=== PATIENT | female | born 1990 | race Caucasian/White ===

== ENCOUNTER 2017-04-24 18:07 | Inpatient (IN) | payer MEDICAID ==
[~2017-04-24] VITALS: Ht 154.9 cm; Wt 71.5 kg
[~2017-04-24 18:07] MED LIST: CIPR500T4 PO; CLAR500 PO; ECASA PO; LEVE500S TUBE; MIDO5 PO; PANT20 PO; PERC10TA27 PO; PROM25TA5 PO; SPIR50 PO; TOPI25 PO
[2017-04-24 18:35] VITALS: BP 137/78; PULSE 88; RESP 18; TEMP 98.2; O2SAT 99
[2017-04-24] MEDS ORDERED: VANCOMYCIN INJ 1,000 MG in SODIUM CHLOR 0.9% 250 ML INJ 250 ML IV ONE (19:30)
[2017-04-24] MEDS ORDERED: METO1TAB42 PO (19:34)
[2017-04-24] MEDS ORDERED: SPIR25 PO (19:34)
[2017-04-24] MEDS ORDERED: LORA-474 PO (19:34)
[2017-04-24] MEDS ORDERED: TOPI25TA7 PO (19:34)
[2017-04-24] MEDS ORDERED: ASPI81CH6 CHEW (19:34)
[2017-04-24] MEDS ORDERED: OXYC1TAB36 PO (19:34)
[2017-04-24] MEDS ORDERED: LISI10TA3 PO (19:34)
[2017-04-24] MEDS ORDERED: ENOX100P SQ (19:34)
[2017-04-24] MEDS ORDERED: PROT40TA PO (19:34)
[2017-04-24] MEDS ORDERED: FLUO-1 PO (19:34)
[2017-04-24] MEDS ORDERED: FERR15DR6 PO (19:34)
--- NOTE | 2017-04-24 20:06 | PD ---
HPI Chief Complaint: Chest Pain Time Seen by Provider: 19:11 Travel History International Travel<30 days: No Contact w/Intl Traveler<30days: No Traveled to known affect area: No History of Present Illness HPI pt is 26 yr old female with complicated medical past including recent sepsis and ICU she was given Zosyn and had bad reaction to the and developed and severe blistering to back , it has not healed in over 2 months , pt ereports seeing wound care MD at her PCP office but , she is using topical antibiotics without relief. pus coming from wound, Pt has hx of MRSA and pt has had cardiac issues and was ICU with trach in her past as well. pt main complaint is back pain ulceration skin oozing pus not getrting better with topical antibiotic and bids dressing change. PFSH Past Medical History Hx Anticoagulant Therapy: Yes (hx of) ADHD: No Blood Disorders: No Anxiety: Yes Depression: Yes Heart Rhythm Problems: No Cancer: No Cardiovascular Problems: Yes High Cholesterol: No Chemotherapy: No Chest Pain: Yes Congestive Heart Failure: No Cerebrovascular Accident: Yes Diabetes: No Diminished Hearing: No Endocrine: No Gastrointestinal Disorders: Yes (ASCITES SEPTEMBER 2013) GERD: Yes Genitourinary: Yes Immune Disorder: No Implanted Vascular Access Dvce: Yes (ARTIFICIAL HEART VALVES) Musculoskeletal: Yes Neurologic: Yes Psychiatric: Yes Reproductive: Yes (Ovarian cyst.) Respiratory: No Immunizations Current: Yes Migraines: Yes Seizures: Yes Thyroid Disease: No Ulcer: No ?: Not LMP: IUD IN PLACE : 1 Para: 1 Ovarian Cysts: Yes Past Surgical History Abdominal Surgery: Yes (SPLEENECTOMY, PERICENTESIS (2014)) Appendectomy: Yes Body Medical Devices: Prosthetic mitral/ tricuspid valves. also states wire in chest cavity Cardiac Surgery: Yes (Open heart surgery in 2010 - Tricuspid and mitral valve replacement) Section: Yes Cholecystectomy: Yes Ear Surgery: No Endocrine Surgery: No Eye Surgery: No Genitourinary Surgery: Yes Gynecologic Surgery: Yes ( at age 17) Hysterectomy: Yes (ENDOCARDITIS) Oral Surgery: Yes (WISDOM) Pacemaker: No Thoracic Surgery: No Valve Replacement: Yes (MITRAL TRICUSPID) Other Surgery: Yes (FACIAL SURGERY) Social History Alcohol Use: No Tobacco Use: No (NEVER) Substance Use: Yes ( MARIJUANA ) Allergies-Medications (Allergen,Severity, Reaction): Coded Allergies: Fish Containing Products (Unverified Allergy, Severe, THROAT SWOLLEN/HIVES , 10/08/16) codeine (Unverified Allergy, Severe, HIVES/VOMITING, 10/08/16) gabapentin (Unverified Allergy, Severe, Hives, 10/08/16) morphine (Unverified Allergy, Severe, Hives, 10/08/16) naproxen (Unverified Allergy, Severe, Hives, 10/08/16) piperacillin (Verified Allergy, Severe, Hives, 04/24/17) tazobactam (Verified Allergy, Severe, Hives, 04/24/17) Reported Meds & Prescriptions Reported Meds & Active Scripts Active Reported Protonix (Pantoprazole Sodium) 40 Mg Tab 40 Mg PO DAILY Aldactone (Spironolactone) 25 Mg Tab 25 Mg PO BIDPC Iron Supplement Childrens Liq Drops (Ferrous Sulfate) 15 Mg/Ml Drops 15 Mg PO BID Oxycodone-Acetaminophen 10-325 mg Tab 1 Tab PO Q4H PRN Aspirin Low Dose (Aspirin) 81 Mg Chew 81 Mg CHEW DAILY Lovenox Inj (Enoxaparin Sodium) 100 Mg/Ml Syr 100 Mg SQ DAILY Prozac (Fluoxetine HCl) 10 Mg Cap 20 Mg PO DAILY Ativan (Lorazepam) 1 Mg Tab 1 Mg PO BID PRN Lisinopril 10 Mg Tab 10 Mg PO DAILY Metoprolol Succinate ER 24 HR (Metoprolol Succinate) 25 Mg Tab 12.5 Mg PO BID Review of Systems Except as stated in HPI: all other systems reviewed are Neg Skin: Positive Lesions (ulcer oozing pus over 2 months) Physical Exam Narrative GENERAL: non toxic appaerance SKIN: Warm and dry. Pt has 7cm oval ulcer on right upper back oozing purulent material and macerated appearance HEAD: Atraumatic. Normocephalic. EYES: Pupils equal and round. No scleral icterus. No injection or drainage. ENT: No nasal bleeding or discharge. Mucous membranes pink and moist. NECK: Trachea midline. No JVD. CARDIOVASCULAR: Regular rate and rhythm. RESPIRATORY: No accessory muscle use. Clear to auscultation. Breath sounds equal bilaterally. GASTROINTESTINAL: Abdomen soft, non-tender, nondistended. Hepatic and splenic margins not palpable. MUSCULOSKELETAL: Extremities without clubbing, cyanosis, or edema. No obvious deformities. NEUROLOGICAL: Awake and alert. No obvious cranial nerve deficits. Motor grossly within normal limits. Five out of 5 muscle strength in the arms and legs. Normal speech. PSYCHIATRIC: Appropriate mood and affect; insight and judgment normal. Data Data Last Documented VS Orders Orders Vancomycin Inj (Vancomycin Inj) (04/24/17 19:30) Complete Blood Count With Diff (04/24/17 19:20) Blood Culture (04/24/17 19:20) Comprehensive Metabolic Panel (04/24/17 19:20) Wound Culture And Gram Stain (04/24/17 19:20) Ketorolac Inj (Toradol Inj) (04/24/17 20:15) Famotidine Inj (Pepcid Inj) (04/24/17 20:15) Ondansetron Inj (Zofran Inj) (04/24/17 20:15) Sodium Chlor 0.9% 1000 Ml Inj (Ns 1000 M (04/24/17 20:15) Lactic Acid (04/24/17 20:10) Chest, Pa & Lat (04/24/17 ) Admit Order (Ed Use Only) (04/24/17 22:13) Labs Laboratory Tests Test 04/24/17 20:05 04/24/17 20:50 White Blood Count 8.5 TH/MM3 Red Blood Count 3.84 MIL/MM3 Hemoglobin 12.1 GM/DL Hematocrit 35.7 % Mean Corpuscular Volume 93.0 FL Mean Corpuscular Hemoglobin 31.5 PG Mean Corpuscular Hemoglobin Concent 33.8 % Red Cell Distribution Width 13.7 % Platelet Count 464 TH/MM3 Mean Platelet Volume 7.2 FL Neutrophils (%) (Auto) 49.3 % Lymphocytes (%) (Auto) 37.7 % Monocytes (%) (Auto) 9.7 % Eosinophils (%) (Auto) 2.0 % Basophils (%) (Auto) 1.3 % Neutrophils # (Auto) 4.2 TH/MM3 Lymphocytes # (Auto) 3.2 TH/MM3 Monocytes # (Auto) 0.8 TH/MM3 Eosinophils # (Auto) 0.2 TH/MM3 Basophils # (Auto) 0.1 TH/MM3 CBC Comment DIFF FINAL Differential Comment Blood Urea Nitrogen 20 MG/DL Creatinine 0.82 MG/DL Random Glucose 83 MG/DL Total Protein 8.6 GM/DL Albumin 4.5 GM/DL Calcium Level 9.2 MG/DL Alkaline Phosphatase 144 U/L Aspartate Amino Transf (AST/SGOT) 26 U/L Alanine Aminotransferase (ALT/SGPT) 33 U/L Total Bilirubin 0.7 MG/DL Sodium Level 137 MEQ/L Potassium Level 3.5 MEQ/L Chloride Level 101 MEQ/L Carbon Dioxide Level 28.1 MEQ/L Anion Gap 8 MEQ/L Estimat Glomerular Filtration Rate 84 ML/MIN Lactic Acid Level 0.5 mmol/L MDM Medical Decision Making Medical Screen Exam Complete: Yes Emergency Medical Condition: Yes Differential Diagnosis ulcer of pressure , ulcer of MRSA , SJS reaction to zosyn not healing Narrative Course vanco cultures lactic acid NS toradol admit wound culture sent Diagnosis Primary Impression: Infected ulcer of skin Qualified Codes: L98.491 - Non-pressure chronic ulcer of skin of other sites limited to breakdown of skin; L08.9 - Local infection of the skin and subcutaneous tissue, unspecified Leonard Reveles MD Apr 24, 2017 20:06
[2017-04-24] MEDS ORDERED: ONDANSETRON HCL 4 MG/2 ML VIAL IV PUSH ONE (20:15)
[2017-04-24] MEDS ORDERED: SODIUM CHLOR 0.9% 1000 ML INJ 1,000 ML IV ONE (20:15)
[2017-04-24] MEDS ORDERED: FAMOTIDINE 20 MG/2 ML VIAL IV PUSH SCH (20:15)
[2017-04-24] MEDS ORDERED: KETOROLAC TROMETHAMINE 30 MG/ML (IVP) VIAL IV PUSH ONE (20:15)
[2017-04-24 20:35] LABS: AUTOMATED NEUTROPHIL # 4.2 TH/MM3 (1.8-7.7); BASOPHIL # 0.1 TH/MM3 (0-0.2); BASOPHIL % 1.3 % (0.0-2.0); EOSINOPHIL # 0.2 TH/MM3 (0-0.4); HEMATOCRIT 35.7 % (35.0-46.0); HEMOGLOBIN 12.1 GM/DL (11.6-15.3); LYMPH % 37.7 % (9.0-44.0); LYMPHOCYTE # 3.2 TH/MM3 (1.0-4.8); MEAN CORPUSCULAR HEMOGLOBIN 31.5 PG (27.0-34.0); MEAN CORPUSCULAR HGB CONC 33.8 % (32.0-36.0); MEAN PLATELET VOLUME 7.2 FL (7.0-11.0); MONO % 9.7 % (0.0-8.0); MONOCYTE # 0.8 TH/MM3 (0-0.9); NEUT % 49.3 % (16.0-70.0); PLATELET COUNT 464 TH/MM3 (150-450); RED BLOOD COUNT 3.84 MIL/MM3 (4.00-5.30); RED CELL DISTRIBUTION WIDTH 13.7 % (11.6-17.2); WHITE BLOOD COUNT 8.5 TH/MM3 (4.0-11.0)
[2017-04-24 20:47] LABS: ALBUMIN 4.5 GM/DL (3.4-5.0); AST (GOT) 26 U/L (15-37); BICARBONATE 28.1 MEQ/L (21.0-32.0); BLOOD UREA NITROGEN 20 MG/DL (7-18); CALCIUM 9.2 MG/DL (8.5-10.1); CHLORIDE 101 MEQ/L (98-107); CREATININE 0.82 MG/DL (0.50-1.00); GLOMERULAR FILTRATION RATE 84 ML/MIN (>89); GLUCOSE,RANDOM 83 MG/DL (74-106); SODIUM (NA) 137 MEQ/L (136-145)
[2017-04-24 20:48] LABS: ALT (GPT) 33 U/L (10-53)
[2017-04-24 20:50] LABS: ALKALINE PHOSPHATASE 144 U/L (45-117); TOTAL BILIRUBIN ADULT 0.7 MG/DL (0.2-1.0); TOTAL PROTEIN 8.6 GM/DL (6.4-8.2)
[2017-04-24 21:20] VITALS: BP 102/58; PULSE 76; RESP 16; TEMP 98.6; O2SAT 98
--- NOTE | 2017-04-24 22:11 | RADRPT ---
EXAM DATE/TIME: 04/24/2017 21:58 [facility] COMPARISON: No previous studies available for comparison. INDICATIONS : Chest pain for three days. MEDICAL HISTORY : Gastroesophageal reflux disease. Seizures. Hepatitis C. Cerebrovascular accident. Migraines. Tubercul osis. Ascites. Pelvic inflammatory disease. Ovarian cysts. Endocarditis. Substance abuse. SURGICAL HISTORY : Pacemaker. Splenectomy. Cholecystectomy. section. Tricuspid and mitral valve replacement. Paracentesis. Carpal tunnel surgery. ENCOUNTER: Initial ACUITY: 3 days PAIN SCORE: 7/10 LOCATION: Left chest FINDINGS: Median sternotomy wires are noted status post cardiac surgery. Pacer device is noted. The heart is en larged. No pulmonary edema is noted. Bibasilar streakiness is noted consistent with atelectasis and/o r infiltrates. CONCLUSION: Cardiomegaly. Bibasilar streakiness consistent with atelectasis and/or infiltrates. Ramakrishna Small MD on April 24, 2017 at 22:09 Board Certified Radiologist. This report was verified electronically.
--- NOTE | 2017-04-24 23:23 | HHI.HP ---
[facility] Seth De Jesus D.O. Admission Diagnosis Infected wound back Diagnoses: Chief Complaint: Infected wound on the back Travel History International Travel<30 Days: No Contact w/Intl Traveler <30 Da: No Traveled to Known Affected Are: No History of Present Illness 26-year-old female with a complex medical history including hepatitis C, mitral and aortic valve replacement from endocarditis, respiratory failure, history of trach, history of IV drug use presents to the hospital with concern for worsening an infected wound on her back. The patient reports she was at [facility] in [place] about a month and a half ago and was treated for bacteremia. She reports she had a reaction to Zosyn and ended up with a large wound on her right upper back. She was eventually discharged home to follow-up outpatient with wound care but she states she was not able to do so and has been taken care of the wound by herself at home. Over the past few days she noticed the wound has been draining foul purulence. She denies fevers or chills. She reports significant discomfort. She states she recently moved back to the [facility]. She has a doctor in [place]. She states the last time she used any drugs was in 2016 prior to valve replacement. Review of Systems Constitutional: DENIES: Fever, Chills Cardiovascular: COMPLAINS OF: Chest pain (sharp, chronic. reportedly Pacemaker needs to be repositioned. ) Integumentary: COMPLAINS OF: Rash (Large wound right upper back) Except as stated in HPI: all other systems reviewed are Neg Past Family Social History Past Medical History History of bacterial endocarditis status post prosthetic mitral/ tricuspid valves in 2000. 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 Apparently the patient had a redo Valve replacements in 2016 at [facility] History of respiratory failure requiring intubation and tracheostomy History of renal failure History of seizures History of spontaneous bacterial peritonitis History of intracranial abscess Past Surgical History Mitral/Tricuspid Valve Replacement (Bovine/Porcine) Cholecystectomy Splenectomy Liver biopsy Tracheostomy Multiple paracentesis Carpal tunnel surgery R wrist Pacemaker placement Reported Medications Reported Meds & Active Scripts Active Reported Protonix (Pantoprazole Sodium) 40 Mg Tab 40 Mg PO DAILY Aldactone (Spironolactone) 25 Mg Tab 25 Mg PO BIDPC Iron Supplement Childrens Liq Drops (Ferrous Sulfate) 15 Mg/Ml Drops 15 Mg PO BID Oxycodone-Acetaminophen 10-325 mg Tab 1 Tab PO Q4H PRN Aspirin Low Dose (Aspirin) 81 Mg Chew 81 Mg CHEW DAILY Lovenox Inj (Enoxaparin Sodium) 100 Mg/Ml Syr 100 Mg SQ DAILY Prozac (Fluoxetine HCl) 10 Mg Cap 10 Mg PO DAILY Ativan (Lorazepam) 1 Mg Tab 1 Mg PO BID PRN Topiramate 25 Mg Tab 25 Mg PO BID Lisinopril 10 Mg Tab 10 Mg PO DAILY Metoprolol Succinate ER 24 HR (Metoprolol Succinate) 25 Mg Tab 12.5 Mg PO BID Allergies: Coded Allergies: Fish Containing Products (Unverified Allergy, Severe, THROAT SWOLLEN/HIVES , 10/08/16) codeine (Unverified Allergy, Severe, HIVES/VOMITING, 10/08/16) gabapentin (Unverified Allergy, Severe, Hives, 10/08/16) morphine (Unverified Allergy, Severe, Hives, 10/08/16) naproxen (Unverified Allergy, Severe, Hives, 10/08/16) piperacillin (Verified Allergy, Severe, Hives, 04/24/17) tazobactam (Verified Allergy, Severe, Hives, 04/24/17) Family History Mother with history of ID 2. First 1 at 35 years old Brother with a history of ID 1 Social History Patient has a significant history of IV drug use. She states she quit using drugs in 2016. No tobacco or alcohol use. Patient was living in [place]. Recently moved back to [facility]. Physical Exam Vital Signs Vital Signs Date Time Temp Pulse Resp B/P (MAP) Pulse Ox O2 Delivery O2 Flow Rate FiO2 04/24/17 21:20 98.6 76 16 102/58 (73) 98 Room Air 04/24/17 18:37 88 18 99 Room Air 04/24/17 18:35 98.2 88 18 137/78 (97) 99 Physical Exam GENERAL: This is a well-nourished, well-developed patient, in no apparent distress. SKIN: There is a large wound over the right upper back. It is raised and beefy red, scant drainage. Appears to have pockets of serous sanguinous areas. There are surrounding cellulitis. Some irritation from the tape as well. HEAD: Atraumatic. Normocephalic. No temporal or scalp tenderness. EYES: Pupils equal round and reactive. Extraocular motions intact. No scleral icterus. No injection or drainage. ENT: Nose without bleeding, purulent drainage or septal hematoma. Throat without erythema, tonsillar hypertrophy or exudate. Uvula midline. Airway patent. NECK: Trachea midline. No JVD or lymphadenopathy. Supple, nontender, no meningeal signs. CARDIOVASCULAR: Normal rate. Regular rhythm. 2 out of 6 MALLORY best heard at the left upper sternal border RESPIRATORY: Clear to auscultation. Breath sounds equal bilaterally. No wheezes , rales, or rhonchi. GASTROINTESTINAL: Abdomen soft, non-tender, nondistended. No hepato-splenomegaly , or palpable masses. No guarding. MUSCULOSKELETAL: Extremities without clubbing, cyanosis, or edema. No joint tenderness, effusion, or edema noted. No calf tenderness. Negative Homans sign bilaterally. NEUROLOGICAL: Awake and alert. Cranial nerves II through XII intact. Motor and sensory grossly within normal limits. Five out of 5 muscle strength in all muscle groups. Normal speech. Laboratory Laboratory Tests Test 04/24/17 20:05 04/24/17 20:50 White Blood Count 8.5 Red Blood Count 3.84 Hemoglobin 12.1 Hematocrit 35.7 Mean Corpuscular Volume 93.0 Mean Corpuscular Hemoglobin 31.5 Mean Corpuscular Hemoglobin Concent 33.8 Red Cell Distribution Width 13.7 Platelet Count 464 Mean Platelet Volume 7.2 Neutrophils (%) (Auto) 49.3 Lymphocytes (%) (Auto) 37.7 Monocytes (%) (Auto) 9.7 Eosinophils (%) (Auto) 2.0 Basophils (%) (Auto) 1.3 Neutrophils # (Auto) 4.2 Lymphocytes # (Auto) 3.2 Monocytes # (Auto) 0.8 Eosinophils # (Auto) 0.2 Basophils # (Auto) 0.1 CBC Comment DIFF FINAL Differential Comment Blood Urea Nitrogen 20 Creatinine 0.82 Random Glucose 83 Total Protein 8.6 Albumin 4.5 Calcium Level 9.2 Alkaline Phosphatase 144 Aspartate Amino Transf (AST/SGOT) 26 Alanine Aminotransferase (ALT/SGPT) 33 Total Bilirubin 0.7 Sodium Level 137 Potassium Level 3.5 Chloride Level 101 Carbon Dioxide Level 28.1 Anion Gap 8 Estimat Glomerular Filtration Rate 84 Lactic Acid Level 0.5 Date/Time Source Procedure Growth Status 04/24/17 20:05 Blood Peripheral Aerobic Blood Culture Pending Received 04/24/17 20:05 Blood Peripheral Anaerobic Blood Culture Pending Received 04/24/17 19:36 Wound Back Gram Stain Pending Received 04/24/17 19:36 Wound Back Wound Culture Pending Received Result Diagram: 04/24/[id number]/24/172004 Imaging Last Impressions Chest X-Ray 04/24/17 0000 Signed Impressions: Service Date/Time: April 21:58 - CONCLUSION: Cardiomegaly. Bibasilar streakiness consistent with atelectasis and/or infiltrates. MD Nancie Garcias VTE Risk Assessment Nancie VTE Risk Assessment: Mod/High Risk (score >= 2) Caprini Risk Assessment Model Point Value = 1 Point Value = 2 Point Value = 3 Point Value = 5 Age 41-60 Minor surgery BMI > 25 kg/m2 Swollen legs Varicose veins or History of unexplained or recurrent spontaneous Oral contraceptives or hormone replacement Sepsis (< 1 month) Serious lung disease, including pneumonia (< 1 month) Abnormal pulmonary function Acute myocardial infarction Congestive heart failure (< 1 month) History of inflammatory bowel disease Medical patient at bed rest Age 61-74 Arthroscopic surgery Major open surgery (> 45 min) Laparoscopic surgery (> 45 min) Malignancy Confined to bed (> 72 hours) Immobilizing plaster cast Central venous access Age >= 75 History of VTE Family history of VTE Factor V Leiden Prothrombin [id number] Lupus anticoagulant Anticardiolipin antibodies Elevated serum homocysteine Heparin-induced thrombocytopenia Other congenital or acquired thrombophilia Stroke (< 1 month) Elective arthroplasty Hip, pelvis, or leg fracture Acute spinal cord injury (< 1 month) Prophylaxis Regimen Total Risk Factor Score Risk Level Prophylaxis Regimen 0-1 Low Early ambulation 2 Moderate Order ONE of the following: *Sequential Compression Device (SCD) *Heparin 5000 units SQ BID 3-4 Higher Order ONE of the following medications: *Heparin 5000 units SQ TID *Enoxaparin/Lovenox 40 mg SQ daily (WT < 150 kg, CrCl > 30 mL/min) *Enoxaparin/Lovenox 30 mg SQ daily (WT < 150 kg, CrCl > 10-29 mL/min) *Enoxaparin/Lovenox 30 mg SQ BID (WT < 150 kg, CrCl > 30 mL/min) AND/OR *Sequential Compression Device (SCD) 5 or more Highest Order ONE of the following medications: *Heparin 5000 units SQ TID (Preferred with Epidurals) *Enoxaparin/Lovenox 40 mg SQ daily (WT < 150 kg, CrCl > 30 mL/min) *Enoxaparin/Lovenox 30 mg SQ daily (WT < 150 kg, CrCl > 10-29 mL/min) *Enoxaparin/Lovenox 30 mg SQ BID (WT < 150 kg, CrCl > 30 mL/min) AND *Sequential Compression Device (SCD) Assessment and Plan Problem List: (1) Infected ulcer of skin ICD Code: L98.499 - Non-pressure chronic ulcer of skin of other sites with unspecified severity; L08.9 - Local infection of the skin and subcutaneous tissue, unspecified Status: Acute Plan: Large wound. Reportedly started as reaction to Zosyn. Not healing. Patient has been caring for it herself. Did not follow up outpatient with wound care - Wound culture pending -Continue empiric antibiotics with vancomycin - Pain control - Consult infectious disease for assistance. Patient is complex. She has history of endocarditis with valve replacements. She was admitted in [place] and treated for bacteremia about a month and a half ago. - Wound care consult (2) H/O endocarditis ICD Code: Z86.79 - Personal history of other diseases of the circulatory system Status: Chronic Plan: Recently treated at [facility] in [place] for bacteremia. Repeat blood cultures ID consulted as above (3) Systolic CHF, chronic ICD Code: I50.22 - Chronic systolic (congestive) heart failure Status: Chronic Plan: Continue metoprolol. Hold lisinopril and Aldactone due to low blood pressure. Continue to monitor (4) History of heart valve replacement ICD Code: Z95.2 - Presence of prosthetic heart valve Plan: On Lovenox. States Coumadin did not work for her. (5) Anxiety ICD Code: F41.9 - Anxiety disorder, unspecified Status: Acute Plan: Continue Prozac Discussed Condition With Dr. Reveles Physician Certification 2 Midnight Certification Type: Admission for Inpatient Services Order for Inpatient Services The services are ordered in accordance with Medicare regulations or non- Medicare payer requirements, as applicable. In the case of services not specified as inpatient-only, they are appropriately provided as inpatient services in accordance with the 2-midnight benchmark. Estimated LOS (days): 5 days is the estimated time the patient will need to remain in the hospital, assuming treatment plan goals are met and no additional complications. Post-Hospital Plan: Home Problem Qualifiers (1) Infected ulcer of skin: Qualified Codes: L98.491 - Non-pressure chronic ulcer of skin of other sites limited to breakdown of skin; L08.9 - Local infection of the skin and subcutaneous tissue, unspecified Jose Amador MD Apr 24, 2017 23:23
[2017-04-24] MEDS ORDERED: BISACODYL 10 MG SUPP RECTAL PRN (23:30)
[2017-04-24] MEDS ORDERED: NALOXONE HCL 0.4 MG/ML AMP IV PUSH PRN (23:30)
[2017-04-24] MEDS ORDERED: SENNOSIDES 8.6 MG TAB PO PRN (23:30)
[2017-04-24] MEDS ORDERED: LACTULOSE SYRUP 20 GM/30 ML CUP PO PRN (23:30)
[2017-04-24] MEDS ORDERED: SODIUM CHLORIDE 0.9% FLUSH 10 ML FLUSH IV FLUSH PRN (23:30)
[2017-04-24] MEDS ORDERED: MAGNESIUM HYDROXIDE SUSP 30 ML CUP PO PRN (23:30)
[2017-04-25] MEDS ORDERED: Vancomycin Consult Pharmacy 1 EA OTHER SCH (01:00)
[2017-04-25 02:00] VITALS: BP 117/64; PULSE 81; RESP 18; TEMP 98; O2SAT 94
[2017-04-25] MEDS: oxyCODONE/ACETAMINOPHEN 5 MG/325 MG TAB PO PRN ×2 (02:33→09:27)
[2017-04-25] MEDS: ONDANSETRON HCL 4 MG/2 ML VIAL IVP PRN ×2 (04:50→21:40)
[2017-04-25 04:52] VITALS: BP 93/54; PULSE 76; RESP 18; TEMP 98.1; O2SAT 97
[2017-04-25 08:00] VITALS: BP 110/63; PULSE 85; RESP 19; TEMP 98.5; O2SAT 99
[2017-04-25 08:47] LABS: BICARBONATE 25.3 MEQ/L (21.0-32.0); CALCIUM 8.6 MG/DL (8.5-10.1); CREATININE 0.77 MG/DL (0.50-1.00)
[2017-04-25 08:49] LABS: BASOPHIL # 0.1 TH/MM3 (0-0.2); BASOPHIL % 1.2 % (0.0-2.0); EOSINOPHIL # 0.2 TH/MM3 (0-0.4); EOSINOPHIL % 2.9 % (0.0-4.0); HEMATOCRIT 32.7 % (35.0-46.0); HEMOGLOBIN 11.1 GM/DL (11.6-15.3); LYMPH % 32.8 % (9.0-44.0); LYMPHOCYTE # 2.5 TH/MM3 (1.0-4.8); MEAN CELL VOLUME 94.2 FL (80.0-100.0); MEAN CORPUSCULAR HEMOGLOBIN 32.1 PG (27.0-34.0); MEAN PLATELET VOLUME 7.3 FL (7.0-11.0); MONOCYTE # 0.8 TH/MM3 (0-0.9); NEUT % 52.1 % (16.0-70.0); PLATELET COUNT 395 TH/MM3 (150-450); RED BLOOD COUNT 3.47 MIL/MM3 (4.00-5.30); RED CELL DISTRIBUTION WIDTH 13.9 % (11.6-17.2); WHITE BLOOD COUNT 7.6 TH/MM3 (4.0-11.0)
[2017-04-25] MEDS: PANTOPRAZOLE SOD 40 MG DELAYED RELEASE TAB PO SCH (09:17)
[2017-04-25] MEDS: FLUoxetine HCL 10 MG CAP PO SCH (09:18)
[2017-04-25] MEDS: TOPIRAMATE 25 MG TAB PO SCH ×2 (09:18→21:36)
[2017-04-25] MEDS: METOPROLOL SUCCINATE 25 MG EXTENDED RELEASE TAB PO SCH ×2 (09:20→21:37)
[2017-04-25] MEDS: ENOXAPARIN SODIUM 100 MG/ML SYRINGE SQ SCH (09:27)
[2017-04-25] MEDS: VANCOMYCIN INJ 1,000 MG in SODIUM CHLOR 0.9% 250 ML INJ 250 ML IV SCH ×2 (09:28→22:32)
--- NOTE | 2017-04-25 10:47 | PD.WCN.NOT ---
Wound Consult Description: Received consult from Doctor Perry for wound management of R upper back Communicated with: RN Art newark and Doctor Vianey Recommendation: 1.Please cleanse wound to R upper back with wound cleanser and pat dry. 2. Apply skin prep to periwound and intact skin before applying dressings 3.Apply Optifoam AG gentle border secured with bordered gauze.. 4. Change dressing every 2 days or PRN if saturated or dislodged. 5. Please have patient follow up with out patient wound care center. Additional Information: Patient seen on for evaluation of R upper back wound. Patient was being treated for bacteremia at [facility] in [place] approximately 1 month ago. Had an allergic reaction to Zosyn and developed large blistering wound on back. Patient has been treating wound herself at home per instructions from [facility]. Patient has noticed foul smelling odor and wound has become more painful. She has not followed up with an out patient wound care center. Patient was given medication for pain. Prior to dressing removal and wound assessment. Roberta was sitting up in bed for wound assessment. ABD dressing, and oil emulsion gauze were removed from R upper back to reveal open wound to R upper back. Wound bed presents with 100% hypergranulated tissue. Periwound is noted with erythema that extends ~2cm out from wound bed circumferentially, slight induration is noted at 7to 9 o'clock. Wound margins are uneven and irregular.Cleansed wound with normal saline and patted dry. Applied oil emulsion gauze just over open wound and covered with ABD pad. Secured dressing with Medfix tape. RN to dress wound as recommended above when supplies obtained.Please vocera wound care nurse wound deterioration. So[facility]ila Alarcon [facility] Apr 25, 2017 10:47
--- NOTE | 2017-04-25 11:49 | HHI.PR ---
Subjective Remarks The patient says she has been struggling with the wound in her back since mid January. She does endorse significant pain in that area. She also mentions for the past 3 or 4 days she has been having left-sided chest pain with radiation to the right. It seems to get worse with movement. She says she has a history of significant heart disease in her family. She also endorses chronic migraines. Discussed with nursing. Objective Vitals Vital Signs Date Time Temp Pulse Resp B/P (MAP) Pulse Ox O2 Delivery O2 Flow Rate FiO2 04/25/17 08:00 98.5 85 19 110/63 (79) 99 04/25/17 04:52 98.1 76 18 93/54 (67) 97 04/25/17 02:00 98.0 81 18 117/64 (81) 94 04/24/17 21:20 98.6 76 16 102/58 (73) 98 Room Air 04/24/17 18:37 88 18 99 Room Air 04/24/17 18:35 98.2 88 18 137/78 (97) 99 I/O 04/24/17 04/24/17 04/24/17 04/25/17 04/25/17 04/25/17 07:00 15:00 23:00 07:00 15:00 23:00 Intake Total 1250 ml Balance 1250 ml Intake IV Total 1250 ml # Voids 2 Result Diagram: 04/25/17 0753 04/25/17 0753 Imaging Last Impressions Chest X-Ray 04/24/17 0000 Signed Impressions: Service Date/Time: April 21:58 - CONCLUSION: Cardiomegaly. Bibasilar streakiness consistent with atelectasis and/or infiltrates. Ramakrishna Small MD Objective Remarks GENERAL: This is a well-nourished, well-developed patient, in no apparent distress. SKIN: There is a large wound over the right upper back. Currently the wound is dressed. HEAD: Atraumatic. Normocephalic. No temporal or scalp tenderness. EYES: Pupils equal round and reactive. Extraocular motions intact. No scleral icterus. No injection or drainage. ENT: Nose without bleeding, purulent drainage or septal hematoma. Throat without erythema, tonsillar hypertrophy or exudate. Uvula midline. Airway patent. NECK: Trachea midline. No JVD or lymphadenopathy. Supple, nontender, no meningeal signs. CARDIOVASCULAR: Normal rate. Regular rhythm. Mechanical click noted. RESPIRATORY: Clear to auscultation. Breath sounds equal bilaterally. No wheezes , rales, or rhonchi. GASTROINTESTINAL: Abdomen soft, non-tender, nondistended. No hepato-splenomegaly , or palpable masses. No guarding. MUSCULOSKELETAL: Extremities without clubbing, cyanosis, or edema. No joint tenderness, effusion, or edema noted. NEUROLOGICAL: Awake and alert. Cranial nerves II through XII intact. Motor and sensory grossly within normal limits. Five out of 5 muscle strength in all muscle groups. Normal speech. PSYCH: Mood and affect appropriate. Medications and IVs Current Medications Medications (Trade) Dose Ordered Sig/Lele Route Start Time Stop Time Status Last Admin (Pepcid Inj) 20 mg ONCE IV PUSH 04/24/17 20:15 04/24/17 21:06 (NS Flush) 2 ml UNSCH PRN IV FLUSH 04/24/17 23:30 (NS Flush) 2 ml BID IV FLUSH 04/25/17 09:00 (Tylenol) 650 mg Q4H PRN PO 04/24/17 23:30 (Zofran Inj) 4 mg Q6H PRN IVP 04/24/17 23:30 04/25/17 04:50 (Narcan Inj) 0.4 mg UNSCH PRN IV PUSH 04/24/17 23:30 (Milk Of Magnesia Liq) 30 ml Q12H PRN PO 04/24/17 23:30 (Senokot) 17.2 mg Q12H PRN PO 04/24/17 23:30 (Dulcolax Supp) 10 mg DAILY PRN RECTAL 04/24/17 23:30 (Lactulose Liq) 30 ml DAILY PRN PO 04/24/17 23:30 (Lovenox Inj) 100 mg DAILY SQ 04/25/17 09:00 04/25/17 09:27 (Ferrous Sulfate Liq) 15 mg BID PO 04/25/17 09:00 (PROzac) 10 mg DAILY PO 04/25/17 09:00 04/25/17 09:18 (Toprol Xl) 12.5 mg BID PO 04/25/17 09:00 04/25/17 09:20 (Protonix) 40 mg DAILY PO 04/25/17 09:00 04/25/17 09:17 (Topamax) 25 mg BID PO 04/25/17 09:00 04/25/17 09:18 (Percocet 5-325 Mg) 1 tab Q6H PRN PO 04/25/17 01:00 04/25/17 09:27 Vancomycin HCl 1000 mg/Sodium Chloride 250 ml @ 250 mls/hr Q12H IV 04/25/17 09:00 04/25/17 09:28 Pharmacy Profile Note 0 ml @ 0 mls/hr UNSCH OTHER 04/25/17 01:00 A/P Problem List: (1) Infected ulcer of skin ICD Code: L98.499 - Non-pressure chronic ulcer of skin of other sites with unspecified severity; L08.9 - Local infection of the skin and subcutaneous tissue, unspecified Status: Acute (2) H/O endocarditis ICD Code: Z86.79 - Personal history of other diseases of the circulatory system Status: Chronic (3) Systolic CHF, chronic ICD Code: I50.22 - Chronic systolic (congestive) heart failure Status: Chronic (4) History of heart valve replacement ICD Code: Z95.2 - Presence of prosthetic heart valve (5) Anxiety ICD Code: F41.9 - Anxiety disorder, unspecified Status: Acute Assessment and Plan Infected ulcer of skin Large wound. Reportedly started as reaction to Zosyn. Not healing. Patient has been caring for it herself. Did not follow up outpatient with wound care. Wound nurse recommendations appreciated. - wound care as recommended by wound nurse. - Wound culture pending - Continue empiric antibiotics with vancomycin. - Pain control with a bowel regimen. - Consult infectious disease for assistance. Patient is complex. She has history of endocarditis with valve replacements. She was admitted in [place] and treated for bacteremia about a month and a half ago. Chest pain Left-sided. Family history significant for CAD. EKG without acute ischemic changes. - trend trops and EKGs. - telemetry. - CXR pa/lateral to rule out PNA. H/O endocarditis Recently treated at [facility] in [place] for bacteremia. - Repeat blood cultures. - ID consulted as above. Systolic CHF, chronic No evidence of fluid overload at this time. Most recent echo in out system with normal EF. - Continue metoprolol. - Hold lisinopril and Aldactone due to low blood pressure. Resume when appropriate. History of heart valve replacement On Lovenox. States Coumadin did not work for her. - continue Lovenox. Migraines The patient stated that she has had migraines since she developed brain hematomas this past summer. - Pain control as needed. PPx: Lovenox Problem Qualifiers (1) Infected ulcer of skin: Qualified Codes: L98.491 - Non-pressure chronic ulcer of skin of other sites limited to breakdown of skin; L08.9 - Local infection of the skin and subcutaneous tissue, unspecified Allan Winters DO Apr 25, 2017 11:49
[2017-04-25 12:00] VITALS: BP 101/56; PULSE 77; RESP 19; TEMP 98.2; O2SAT 96
[2017-04-25] MEDS ORDERED: LORazepam 1 MG TAB PO PRN (12:00)
--- NOTE | 2017-04-25 13:03 | RADRPT ---
EXAM DATE/TIME: 04/25/2017 12:46 [facility] COMPARISON: CHEST PA & LAT, April 24, 2017, 21:58. INDICATIONS : Chest pain, short of breath. MEDICAL HISTORY : Gastroesophageal reflux disease. Seizures. Hepatitis C. Cerebrovascular accident. Migraines. Tubercul osis. Ascites. Pelvic inflammatory diseaseOvarian cysts. Endocarditis. Substance abuse. SURGICAL HISTORY : Pacemaker. Splenectomy. Cholecystectomy. section. Tricuspid andmitral valve replacement. Par acentesis. Carpal tunnel surgery ENCOUNTER: Subsequent ACUITY: 4 - 6 days PAIN SCORE: 5/10 LOCATION: Bilateral chest FINDINGS: PA and lateral views of the chest demonstrate the lungs to be symmetrically aerated without evidence of mass, infiltrate or effusion. Pacemaker is evident. Sternal wires from previous bypass are noted . The cardiomediastinal contours are unremarkable. Osseous structures are intact. CONCLUSION: Compensated cardiomegaly without failure. Kj Lozano MD FACR on April 25, 2017 at 12:59 Board Certified Radiologist. This report was verified electronically.
[2017-04-25 16:00] VITALS: BP 93/51; PULSE 77; RESP 19; TEMP 98.6; O2SAT 97
[2017-04-25] MEDS: HYDROmorphone HCL PF 2 MG/ML VIAL IV PUSH PRN ×2 (17:14→21:41)
--- NOTE | 2017-04-25 18:05 | EKG ---
Date Performed: 04/24/2017 Time Performed: 21:17:20 PTAGE: 26 years EKG: ECTOPIC ATRIAL RHYTHM POSSIBLE RIGHT VENTRICULAR CONDUCTION DELAY MINIMAL ST DEPRESSION ABN ORMAL RHYTHM ECG Compared to PREVIOUS TRACING , the patient is now in an ectopic atrial rhythm. PREVIOUS TRACIN11/24 23.54.53 DOCTOR: Neida Rader Interpretating Date/Time 04/25/2017 18:02:11
[2017-04-25 20:00] VITALS: BP 110/63; PULSE 86; RESP 16; TEMP 99.3; O2SAT 95
[2017-04-25] MEDS: SODIUM CHLORIDE 0.9% FLUSH 10 ML FLUSH IV FLUSH SCH (21:00)
[2017-04-25] MEDS: oxyCODONE/ACETAMINOPHEN 10 MG/325 MG TAB PO PRN (21:39)
[2017-04-25] MEDS ORDERED: FERROUS SULFATE 300 MG /5ML UDC PO SCH (23:45)
[2017-04-25] MEDS: FERROUS SULFATE 15 MG/ML ELEMENTAL IRON 50 ML BTL PO SCH (23:58)
[2017-04-26] VITALS (11 sets, daily range): BP systolic 94–109; BP diastolic 49–82; PULSE 67–93; RESP 16–20; TEMP 98–99; O2SAT 85–98
[2017-04-26] MEDS: oxyCODONE/ACETAMINOPHEN 10 MG/325 MG TAB PO PRN ×7 (00:39→22:05)
[2017-04-26] MEDS: HYDROmorphone HCL PF 2 MG/ML VIAL IV PUSH PRN ×6 (02:28→23:14)
[2017-04-26 03:11] LABS: AUTOMATED NEUTROPHIL # 5.3 TH/MM3 (1.8-7.7); BASOPHIL # 0.1 TH/MM3 (0-0.2); BASOPHIL % 0.8 % (0.0-2.0); EOSINOPHIL # 0.3 TH/MM3 (0-0.4); EOSINOPHIL % 3.5 % (0.0-4.0); HEMATOCRIT 32.9 % (35.0-46.0); HEMOGLOBIN 10.9 GM/DL (11.6-15.3); LYMPH % 21.1 % (9.0-44.0); LYMPHOCYTE # 1.6 TH/MM3 (1.0-4.8); MEAN CORPUSCULAR HEMOGLOBIN 31.6 PG (27.0-34.0); MEAN CORPUSCULAR HGB CONC 33.3 % (32.0-36.0); MEAN PLATELET VOLUME 7.1 FL (7.0-11.0); MONO % 4.6 % (0.0-8.0); MONOCYTE # 0.3 TH/MM3 (0-0.9); PLATELET COUNT 352 TH/MM3 (150-450); RED BLOOD COUNT 3.46 MIL/MM3 (4.00-5.30); RED CELL DISTRIBUTION WIDTH 14.3 % (11.6-17.2); WHITE BLOOD COUNT 7.6 TH/MM3 (4.0-11.0)
[2017-04-26] MEDS: METOPROLOL SUCCINATE 25 MG EXTENDED RELEASE TAB PO SCH ×2 (08:13→21:00)
[2017-04-26] MEDS: ASPIRIN 81 MG CHEW TAB CHEW SCH ×2 (08:15→09:02)
[2017-04-26] MEDS: FLUoxetine HCL 10 MG CAP PO SCH (08:15)
[2017-04-26] MEDS: ENOXAPARIN SODIUM 100 MG/ML SYRINGE SQ SCH (08:15)
[2017-04-26] MEDS: PANTOPRAZOLE SOD 40 MG DELAYED RELEASE TAB PO SCH (08:15)
[2017-04-26] MEDS: TOPIRAMATE 25 MG TAB PO SCH ×2 (08:15→21:28)
[2017-04-26] MEDS: SODIUM CHLORIDE 0.9% FLUSH 10 ML FLUSH IV FLUSH SCH ×2 (08:16→21:29)
[2017-04-26] MEDS: FERROUS SULFATE 15 MG/ML ELEMENTAL IRON 50 ML BTL PO SCH ×2 (08:16→21:30)
[2017-04-26] MEDS ORDERED: PHARMACY ORDERED LAB ONE (08:45)
--- NOTE | 2017-04-26 08:57 | EKG ---
Date Performed: 04/26/2017 Time Performed: 05:09:32 PTAGE: 26 years EKG: Possible ectopic atrial rhythm. rSr'(V1) - probable normal variant Septal and lateral ST-T changes are nonspecific Borderline ECG NO PREVIOUS TRACING DOCTOR: Keanu Lauren Interpretating Date/Time 04/26/2017 08:55:52
[2017-04-26] MEDS: ONDANSETRON HCL 4 MG/2 ML VIAL IVP PRN ×2 (09:04→21:29)
--- NOTE | 2017-04-26 09:52 | EKG ---
Date Performed: 04/25/2017 Time Performed: 14:04:27 PTAGE: 26 years EKG: ECTOPIC ATRIAL RHYTHM POSSIBLE RIGHT VENTRICULAR CONDUCTION DELAY ABNORMAL RHYTHM ECG PREVIOUS TRACING : 04/24/2017 21.17 DOCTOR: Keanu Lauren Interpretating Date/Time 04/26/2017 09:50:56
[2017-04-26] MEDS: VANCOMYCIN INJ 1,000 MG in SODIUM CHLOR 0.9% 250 ML INJ 250 ML IV SCH ×2 (10:11→21:40)
[2017-04-26] MEDS ORDERED: NITROGLYCERIN 0.4 MG SL 25 TABS/BTL SL ONE (10:59)
[2017-04-26] MEDS ORDERED: IOHEXOL 350 MG/ML 10 ML VIAL (for RAD DIAG) IVCONTRAST ONE (11:32)
--- NOTE | 2017-04-26 11:46 | RADRPT ---
EXAM DATE/TIME: 04/26/2017 11:29 [facility] COMPARISON: CT PULMONARY ANGIOGRAM, October 31, 2015, 20:02. INDICATIONS : Dyspnea, chest pain IV CONTRAST: 74 cc Omnipaque 350 (iohexol) IV RADIATION DOSE: 19.39 CTDIvol (mGy) MEDICAL HISTORY : Cardiovascular disease. Seizures. Hepatitis C. SURGICAL HISTORY : Hysterectomy. Cholecystectomy.Appendectomy. ENCOUNTER: Initial ACUITY: 1 day PAIN SCALE: 7/10 LOCATION: chest TECHNIQUE: Volumetric scanning of the chest was performed using a pulmonary embolism protocol MIP images were re constructed. Using automated exposure control and adjustment of the mA and/or kV according to patien t size, radiation dose was kept as low as reasonably achievable to obtain optimal diagnostic quality images. DICOM format image data is available electronically for review and comparison. Follow-up recommendations for detected pulmonary nodules are based at a minimum on nodule size and pa tient risk factors according to Fleischner Society Guidelines. FINDINGS: PULMONARY ARTERIES: No filling defects are seen in the pulmonary arteries through the segmental level. LUNGS: Minimal consolidation both lung bases without significant infiltrate. Very similar to October 2015 There is no pneumothorax . No concerning pulmonary nodule is visualized. PLEURAE: There is no pleural thickening or pleural effusion. MEDIASTINUM: There is good visualization of the great vessels of the middle mediastinum. No evidence of mediastin al or hilar adenopathy/mass. MUSCULOSKELETAL: Within normal limits for patient age. MISCELLANEOUS: The visualized upper abdominal organs demonstrate no acute abnormality. CONCLUSION: Normal examination with no evidence of pulmonary embolism. Minimal atelectasis scarring both lung bas es. Keanu Monahan MD on April 26, 2017 at 11:44 Board Certified Radiologist. This report was verified electronically.
--- NOTE | 2017-04-26 11:47 | RADRPT ---
EXAM DATE/TIME: 04/26/2017 11:37 [facility] COMPARISON: CHEST SINGLE AP, December 10, 2015, 2:00. INDICATIONS : Patient complains of chest pain. HALICAT. MEDICAL HISTORY : None. SURGICAL HISTORY : None. ENCOUNTER: Initial ACUITY: 1 day PAIN SCORE: 8/10 LOCATION: chest FINDINGS: A single view of the chest demonstrates the lungs to be symmetrically aerated without evidence of mas s, infiltrate or effusion. Left subclavian pacer device. Median sternotomy wires. Prostatic aortic va lve. The cardiomediastinal contours are unremarkable. Osseous structures are intact. CONCLUSION: Lungs grossly clear. Previous surgeries as above. Keanu Monahan MD on April 26, 2017 at 11:45 Board Certified Radiologist. This report was verified electronically.
--- NOTE | 2017-04-26 12:36 | HHI.PR ---
Subjective Remarks Nursing reported the patient was complaining of chest pain. The patient was complaining of 8 out of 10 chest pain that she described as sharp and stabbing. She also described a severe headache. Her oxygen saturation was in the 60s. She was transitioned to a nonrebreather with improvement in saturation. A Halicat was called. ABG revealed an increased CO2 level. The patient received nitroglycerin and IV Dilaudid for the chest pain. She went to radiology for a stat CTA. She was able to be transitioned back to nasal cannula eventually. Objective Vitals Vital Signs Date Time Temp Pulse Resp B/P (MAP) Pulse Ox O2 Delivery O2 Flow Rate FiO2 04/26/17 10:37 16 04/26/17 10:15 16 04/26/17 08:00 98.0 73 16 100/49 (66) 96 04/26/17 06:12 2.00 04/26/17 06:08 95 04/26/17 06:05 85 04/26/17 04:15 98 04/26/17 04:15 Nasal Cannula 2.00 04/26/17 04:00 98.9 85 17 102/82 (89) 88 04/26/17 00:00 99.0 80 17 104/59 (74) 93 04/25/17 20:00 99.3 86 16 110/63 (79) 95 04/25/17 16:00 98.6 77 19 93/51 (65) 97 I/O 04/25/17 04/25/17 04/25/17 04/26/17 04/26/17 04/26/17 07:00 15:00 23:00 07:00 15:00 23:00 Intake Total 1250 ml 720 ml Output Total 5 ml Balance 1250 ml 715 ml Intake Oral 720 ml IV Total 1250 ml Output Urine Total 5 ml # Voids 2 10 Result Diagram: 04/26/17 0232 04/25/17 0753 Imaging Last Impressions Head CT 04/26/17 0000 Signed Impressions: Service Date/Time: Wednesday, April 26, 2017 13:09 - CONCLUSION: 2 old areas of encephalomalacia on the right side. No evidence of acute hemorrhage, edema, mass, or mass effect. Keanu Monahan MD Chest X-Ray 04/26/17 0000 Signed Impressions: Service Date/Time: Wednesday, April 26, 2017 11:37 - CONCLUSION: Lungs grossly clear. Previous surgeries as above. Keanu Monahan MD CT Angiography 04/26/17 0000 Signed Impressions: Service Date/Time: Wednesday, April 26, 2017 11:29 - CONCLUSION: Normal examination with no evidence of pulmonary embolism. Minimal atelectasis scarring both lung bases. Keanu Monahan MD Objective Remarks GENERAL: Complaining of severe chest pain. SKIN: There is a healing wound over the right upper back. Currently the wound is dressed. HEAD: Atraumatic. Normocephalic. No temporal or scalp tenderness. EYES: Pupils equal round and reactive. Extraocular motions intact. No scleral icterus. No injection or drainage. ENT: Nose without bleeding, purulent drainage or septal hematoma. Throat without erythema, tonsillar hypertrophy or exudate. Uvula midline. Airway patent. NECK: Trachea midline. No JVD or lymphadenopathy. Supple, nontender, no meningeal signs. CARDIOVASCULAR: Normal rate. Regular rhythm. Mechanical click noted. RESPIRATORY: Clear to auscultation. Breath sounds equal bilaterally. No wheezes , rales, or rhonchi. GASTROINTESTINAL: Abdomen soft, non-tender, nondistended. No hepato-splenomegaly , or palpable masses. No guarding. MUSCULOSKELETAL: Extremities without clubbing, cyanosis, or edema. No joint tenderness, effusion, or edema noted. NEUROLOGICAL: Awake and alert. Cranial nerves II through XII intact. Motor and sensory grossly within normal limits. Five out of 5 muscle strength in all muscle groups. Normal speech. PSYCH: Anxious. Medications and IVs Current Medications Medications (Trade) Dose Ordered Sig/Lele Route Start Time Stop Time Status Last Admin (Pepcid Inj) 20 mg ONCE IV PUSH 04/24/17 20:15 04/24/17 21:06 (NS Flush) 2 ml UNSCH PRN IV FLUSH 04/24/17 23:30 (NS Flush) 2 ml BID IV FLUSH 04/25/17 09:00 04/26/17 08:16 (Tylenol) 650 mg Q4H PRN PO 04/24/17 23:30 (Zofran Inj) 4 mg Q6H PRN IVP 04/24/17 23:30 04/26/17 09:04 (Narcan Inj) 0.4 mg UNSCH PRN IV PUSH 04/24/17 23:30 (Milk Of Magnesia Liq) 30 ml Q12H PRN PO 04/24/17 23:30 (Senokot) 17.2 mg Q12H PRN PO 04/24/17 23:30 (Dulcolax Supp) 10 mg DAILY PRN RECTAL 04/24/17 23:30 (Lactulose Liq) 30 ml DAILY PRN PO 04/24/17 23:30 (Lovenox Inj) 100 mg DAILY SQ 04/25/17 09:00 04/26/17 08:15 (Ferrous Sulfate Liq) 15 mg BID PO 04/25/17 09:00 04/26/17 08:16 (PROzac) 10 mg DAILY PO 04/25/17 09:00 04/26/17 08:15 (Toprol Xl) 12.5 mg BID PO 04/25/17 09:00 04/25/17 21:37 (Protonix) 40 mg DAILY PO 04/25/17 09:00 04/26/17 08:15 (Topamax) 25 mg BID PO 04/25/17 09:00 04/26/17 08:15 (Percocet 5-325 Mg) 1 tab Q6H PRN PO 04/25/17 01:00 04/25/17 09:27 Vancomycin HCl 1000 mg/Sodium Chloride 250 ml @ 250 mls/hr Q12H IV 04/25/17 09:00 04/26/17 10:11 Pharmacy Profile Note 0 ml @ 0 mls/hr UNSCH OTHER 04/25/17 01:00 (Aspirin Chew) 81 mg DAILY CHEW 04/25/17 15:00 04/26/17 09:02 (Percocet 10-325 Mg) 1 tab Q4H PRN PO 04/25/17 14:30 04/26/17 13:49 (Dilaudid Pf Inj) 0.5 mg Q4H PRN IV PUSH 04/25/17 14:30 04/26/17 10:10 (Ativan) 1 mg TID PRN PO 04/26/17 12:30 A/P Problem List: (1) Infected ulcer of skin ICD Code: L98.499 - Non-pressure chronic ulcer of skin of other sites with unspecified severity; L08.9 - Local infection of the skin and subcutaneous tissue, unspecified Status: Acute (2) H/O endocarditis ICD Code: Z86.79 - Personal history of other diseases of the circulatory system Status: Chronic (3) Systolic CHF, chronic ICD Code: I50.22 - Chronic systolic (congestive) heart failure Status: Chronic (4) History of heart valve replacement ICD Code: Z95.2 - Presence of prosthetic heart valve (5) Anxiety ICD Code: F41.9 - Anxiety disorder, unspecified Status: Acute Assessment and Plan Acute respiratory failure With CO2 retention. CTA negative. Transitioned back to MT from NRB. Unsure of cause. - follow ABG. - wean O2 as tolerated. - standing and as needed nebs. Acute chest pain Left-sided. Family history significant for CAD. EKG without acute ischemic changes. Trops flat. CTA negative. - telemetry. - cardiology consult requested. Ulcer of skin Large wound. Reportedly started as reaction to Zosyn. Patient has been caring for it herself. Did not follow up outpatient with wound care. Wound nurse recommendations appreciated. Seems to be clean. - wound care as recommended by wound nurse. - Wound culture pending. Normal heath at 24 hours. - Continue empiric antibiotics with vancomycin. - Pain control with a bowel regimen. H/O endocarditis Recently treated at [facility] in [place] for bacteremia. - Repeat blood cultures. - cardiology consult requested. Systolic CHF, chronic No evidence of fluid overload at this time. Most recent echo in out system with normal EF. - Continue metoprolol. - Hold lisinopril and Aldactone due to low blood pressure. Resume when appropriate. History of heart valve replacement On Lovenox. States Coumadin did not work for her. - continue Lovenox. Migraines The patient stated that she has had migraines since she developed brain hematomas this past summer. - Pain control as needed. PPx: Lovenox Greater than 30 minutes of critical care time was spent on the patient, not counting documentation. Problem Qualifiers (1) Infected ulcer of skin: Qualified Codes: L98.491 - Non-pressure chronic ulcer of skin of other sites limited to breakdown of skin; L08.9 - Local infection of the skin and subcutaneous tissue, unspecified Allan Winters DO Apr 26, 2017 12:36
--- NOTE | 2017-04-26 13:23 | RADRPT ---
EXAM DATE/TIME: 04/26/2017 13:09 [facility] COMPARISON: No previous studies available for comparison. INDICATIONS : Patient complains of headache. RADIATION DOSE: 35.18 CTDIvol (mGy) MEDICAL HISTORY : Seizures. Cerebrovascular disease. Cardiovascular diseaseTB, Hep C SURGICAL HISTORY : Appendectomy. Cholecystectomy.Hysterectomy. ENCOUNTER: Initial ACUITY: 1 day PAIN SCALE: 6/10 LOCATION: cranial TECHNIQUE: Multiple contiguous axial images were obtained of the head. Using automated exposure control and adj ustment of the mA and/or kV according to patient size, radiation dose was kept as low as reasonably a chievable to obtain optimal diagnostic quality images. DICOM format image data is available electro nically for review and comparison. FINDINGS: CEREBRUM: There is an evolving area of encephalomalacia in the right frontoparietal region measuring 2.7 cm acr oss. It begins in the temporal lobe extends cephalad continual evolution since October 2015. Smalle r lacunar infarct in the external capsule on the right also unchanged. The ventricles are normal for age. No evidence of midline shift, mass lesion, hemorrhage or acu te infarction. No extra-axial fluid collections are seen. POSTERIOR FOSSA: The cerebellum and brainstem are intact. The 4th ventricle is midline. The cerebellopontine angle i s unremarkable. EXTRACRANIAL: The visualized portion of the orbits is intact. SKULL: The calvaria is intact. No evidence of skull fracture. CONCLUSION: 2 old areas of encephalomalacia on the right side. No evidence of acute hemorrhage, edema, mass, or m ass effect. Keanu Monahan MD on April 26, 2017 at 13:21 Board Certified Radiologist. This report was verified electronically.
[2017-04-26] MEDS: RESP: ALBUTEROL 2.5 MG/IPRATROPIUM 0.5 MG NEB (SCH) NEB ×2 (14:15→20:38)
[2017-04-26] MEDS ORDERED: RESP: ALBUTEROL 2.5 MG/IPRATROPIUM 0.5 MG NEB (PRN) NEB (14:15)
[2017-04-26 14:47] LABS: ALBUMIN 3.6 GM/DL (3.4-5.0); ALKALINE PHOSPHATASE 163 U/L (45-117); ALT (GPT) 60 U/L (10-53); AST (GOT) 63 U/L (15-37); BICARBONATE 25.2 MEQ/L (21.0-32.0); BLOOD UREA NITROGEN 13 MG/DL (7-18); CALCIUM 8.3 MG/DL (8.5-10.1); CHLORIDE 105 MEQ/L (98-107); CREATININE 0.79 MG/DL (0.50-1.00); GLOMERULAR FILTRATION RATE 87 ML/MIN (>89); GLUCOSE,RANDOM 100 MG/DL (74-106); SODIUM (NA) 135 MEQ/L (136-145); TOTAL BILIRUBIN ADULT 1.4 MG/DL (0.2-1.0); TOTAL PROTEIN 7.2 GM/DL (6.4-8.2)
--- NOTE | 2017-04-26 17:40 | MB ---
cc: Neida Rader MD, Beth A MD DATE OF CONSULT: 04/26/2017 REASON FOR CONSULTATION: Persistent chest pain. HISTORY OF PRESENT ILLNESS: Ms. Bazan is a 26-year-old female who does have a history of atrial fibrillation, ventricular fibrillation, endocarditis with subsequent AVR, MVR and permanent pacemaker implantation. The patient reports that she has been having intermittent episodes of chest pain that are on going since her surgery at [facility] in [place] in 2016. The patient reports that she has had her postoperative care all up in [place]. She denies any catheterization or stress testing prior to her valve surgery. The patient reports that over the last several months she has had progression of the intermittent episodes of chest discomfort. It starts essentially substernal and then radiates to the right into her back. Of note, she has a large wound on her upper right back which was reportedly secondary to a REACTION FROM ZOSYN. The chest pain has become more frequent and, thus, cardiology was subsequently requested to evaluate the patient. 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 MEDICATIONS: Current per the record. ALLERGIES: GABAPENTIN, MORPHINE, NAPROXEN, PIPERACILLIN, TAZOBACTAM. FAMILY HISTORY: Positive for a brother with an LA at 35. SOCIAL HISTORY: The patient is a former IV drug user. REVIEW OF SYSTEMS: Except as mentioned in the HPI, all 12 systems were negative. PHYSICAL EXAMINATION: VITAL SIGNS: 98.6, 93, 19, 109/58. GENERAL: She is a thin female who is in no apparent distress. NECK: Free from JVD. LUNGS: Bilaterally clear to auscultation. CARDIOVASCULAR: She has a normal S1 and S2. There is a 2/6 systolic murmur. No rubs or gallops are appreciated. ABDOMEN: Soft. EXTREMITIES: Free from edema. IMAGING STUDIES: Chest x-ray does show 2 prosthetic valves which appear to be consistent with the aortic and mitral position. They, however, do not appear consistent to me with mechanical prosthesis. LABORATORY DATA: Significant for a blood gas with a pH of 7.22, CO2 of 59 and PO2 of 2.83. Her serial troponins are less than 0.02/less than 0.02/less than 0.02. CARDIOLOGY STUDIES: EKG shows possible ectopic rhythm with RSR prime and nonspecific ST T-wave changes. ASSESSMENT AND PLAN: Atypical chest pain - The patient certainly has a positive family history, however, is a quite young female for early coronary artery disease. Nonetheless, it would be reasonable to consider stress testing or coronary CTA after her contrast has passed. I discussed this with the patient and she was in favor of waiting a day or two and having a coronary CT. In the interim, I would like to request her records from [facility], as she has quite an extensive cardiac history from her endocarditis and seems to be an inconsistent historian. MD BEATA Morales//amy , 02:18 PM , 05:20 PM [place]
[2017-04-27] VITALS (11 sets, daily range): BP systolic 94–122; BP diastolic 50–64; PULSE 67–97; RESP 16–20; TEMP 97.7–98.7; O2SAT 97–100
[2017-04-27] MEDS: oxyCODONE/ACETAMINOPHEN 10 MG/325 MG TAB PO PRN ×5 (02:09→21:07)
[2017-04-27] MEDS: HYDROmorphone HCL PF 2 MG/ML VIAL IV PUSH PRN ×2 (03:22→10:16)
[2017-04-27 04:07] LABS: HEMATOCRIT 30.6 % (35.0-46.0); MEAN CORPUSCULAR HEMOGLOBIN 30.8 PG (27.0-34.0); MEAN CORPUSCULAR HGB CONC 32.7 % (32.0-36.0); MEAN PLATELET VOLUME 7.4 FL (7.0-11.0); PLATELET COUNT 300 TH/MM3 (150-450); RED BLOOD COUNT 3.26 MIL/MM3 (4.00-5.30); RED CELL DISTRIBUTION WIDTH 14.6 % (11.6-17.2); WHITE BLOOD COUNT 7.6 TH/MM3 (4.0-11.0)
[2017-04-27 04:42] LABS: ALBUMIN 3.4 GM/DL (3.4-5.0); BICARBONATE 27.6 MEQ/L (21.0-32.0); CALCIUM 8.1 MG/DL (8.5-10.1); CREATININE 0.74 MG/DL (0.50-1.00); DIRECT BILIRUBIN ADULT 0.3 MG/DL (0.0-0.2); INDIRECT BILIRUBIN 0.4 MG/DL (0.0-0.8); MAGNESIUM 2.2 MG/DL (1.5-2.5); TOTAL BILIRUBIN ADULT 0.7 MG/DL (0.2-1.0); TOTAL PROTEIN 6.8 GM/DL (6.4-8.2); TROPONIN I 0.02 NG/ML (0.02-0.05)
[2017-04-27] MEDS: RESP: ALBUTEROL 2.5 MG/IPRATROPIUM 0.5 MG NEB (SCH) NEB ×3 (08:09→19:21)
[2017-04-27] MEDS: FLUoxetine HCL 10 MG CAP PO SCH (08:41)
[2017-04-27] MEDS: PANTOPRAZOLE SOD 40 MG DELAYED RELEASE TAB PO SCH (08:41)
[2017-04-27] MEDS: ASPIRIN 81 MG CHEW TAB CHEW SCH (08:41)
[2017-04-27] MEDS: TOPIRAMATE 25 MG TAB PO SCH ×2 (08:42→21:08)
[2017-04-27] MEDS: ENOXAPARIN SODIUM 100 MG/ML SYRINGE SQ SCH (08:42)
[2017-04-27] MEDS: FERROUS SULFATE 15 MG/ML ELEMENTAL IRON 50 ML BTL PO SCH ×2 (08:44→21:16)
[2017-04-27] MEDS: METOPROLOL SUCCINATE 25 MG EXTENDED RELEASE TAB PO SCH ×2 (09:00→21:08)
[2017-04-27] MEDS: SODIUM CHLORIDE 0.9% FLUSH 10 ML FLUSH IV FLUSH SCH ×2 (09:00→21:07)
[2017-04-27] MEDS: VANCOMYCIN INJ 1,000 MG in SODIUM CHLOR 0.9% 250 ML INJ 250 ML IV SCH (10:20)
--- NOTE | 2017-04-27 12:04 | HHI.PR ---
Subjective Remarks The patient was resting in bed. She said she still had chest pain, back pain and a headache. 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 No other acute concerns at this time. Discussed with nursing and cardiology. Objective Vitals Vital Signs Date Time Temp Pulse Resp B/P (MAP) Pulse Ox O2 Delivery O2 Flow Rate FiO2 04/27/17 11:17 98 Nasal Cannula 3.00 04/27/17 08:11 97 Nasal Cannula 2.00 04/27/17 08:00 97.7 72 18 99/59 (72) 99 04/27/17 04:48 98.5 74 18 94/50 (65) 100 04/27/17 04:19 67 04/27/17 00:34 98.5 70 18 95/50 (65) 97 04/27/17 00:28 69 04/27/17 00:24 97 Nasal Cannula 3.00 04/26/17 20:42 95 Nasal Cannula 3.00 04/26/17 20:28 98.2 73 20 94/49 (64) 94 04/26/17 20:05 67 04/26/17 19:45 16 04/26/17 19:10 16 04/26/17 16:00 98.4 91 18 100/59 (73) 96 04/26/17 12:00 98.6 93 19 109/58 (75) 98 I/O 04/26/17 04/26/17 04/26/17 04/27/17 04/27/17 04/27/17 07:00 15:00 23:00 07:00 15:00 23:00 Intake Total 720 ml Output Total 5 ml Balance 715 ml Intake Oral 720 ml Output Urine Total 5 ml # Voids 10 1 # Bowel Movements 1 Result Diagram: 04/27/17 0341 04/27/17 0341 Imaging Last Impressions Head CT 04/26/17 0000 Signed Impressions: Service Date/Time: Wednesday, April 26, 2017 13:09 - CONCLUSION: 2 old areas of encephalomalacia on the right side. No evidence of acute hemorrhage, edema, mass, or mass effect. Keanu Monahan MD Chest X-Ray 04/26/17 0000 Signed Impressions: Service Date/Time: Wednesday, April 26, 2017 11:37 - CONCLUSION: Lungs grossly clear. Previous surgeries as above. Keanu Monahan MD CT Angiography 04/26/17 0000 Signed Impressions: Service Date/Time: Wednesday, April 26, 2017 11:29 - CONCLUSION: Normal examination with no evidence of pulmonary embolism. Minimal atelectasis scarring both lung bases. Keanu Monahan MD Objective Remarks GENERAL: No distress. SKIN: There is a healing wound over the right upper back. No evidence of infection. HEAD: Atraumatic. Normocephalic. No temporal or scalp tenderness. EYES: Pupils equal round and reactive. Extraocular motions intact. No scleral icterus. No injection or drainage. ENT: Nose without bleeding, purulent drainage or septal hematoma. Throat without erythema, tonsillar hypertrophy or exudate. Uvula midline. Airway patent. NECK: Trachea midline. No JVD or lymphadenopathy. Supple, nontender, no meningeal signs. CARDIOVASCULAR: Normal rate. Regular rhythm. Mechanical click noted. RESPIRATORY: Clear to auscultation. Breath sounds equal bilaterally. No wheezes , rales, or rhonchi. GASTROINTESTINAL: Abdomen soft, non-tender, nondistended. No hepato-splenomegaly , or palpable masses. No guarding. MUSCULOSKELETAL: Extremities without clubbing, cyanosis, or edema. No joint tenderness, effusion, or edema noted. NEUROLOGICAL: Awake and alert. Cranial nerves II through XII intact. Motor and sensory grossly within normal limits. Five out of 5 muscle strength in all muscle groups. Normal speech. PSYCH: Slightly flattened affect. Medications and IVs Current Medications Medications (Trade) Dose Ordered Sig/Lele Route Start Time Stop Time Status Last Admin (Pepcid Inj) 20 mg ONCE IV PUSH 04/24/17 20:15 04/24/17 21:06 (NS Flush) 2 ml UNSCH PRN IV FLUSH 04/24/17 23:30 (NS Flush) 2 ml BID IV FLUSH 04/25/17 09:00 04/26/17 21:29 (Tylenol) 650 mg Q4H PRN PO 04/24/17 23:30 (Zofran Inj) 4 mg Q6H PRN IVP 04/24/17 23:30 04/26/17 21:29 (Narcan Inj) 0.4 mg UNSCH PRN IV PUSH 04/24/17 23:30 (Milk Of Magnesia Liq) 30 ml Q12H PRN PO 04/24/17 23:30 (Senokot) 17.2 mg Q12H PRN PO 04/24/17 23:30 (Dulcolax Supp) 10 mg DAILY PRN RECTAL 04/24/17 23:30 (Lactulose Liq) 30 ml DAILY PRN PO 04/24/17 23:30 (Lovenox Inj) 100 mg DAILY SQ 04/25/17 09:00 04/27/17 08:42 (Ferrous Sulfate Liq) 15 mg BID PO 04/25/17 09:00 04/27/17 08:44 (PROzac) 10 mg DAILY PO 04/25/17 09:00 04/27/17 08:41 (Toprol Xl) 12.5 mg BID PO 04/25/17 09:00 04/25/17 21:37 (Protonix) 40 mg DAILY PO 04/25/17 09:00 04/27/17 08:41 (Topamax) 25 mg BID PO 04/25/17 09:00 04/27/17 08:42 (Percocet 5-325 Mg) 1 tab Q6H PRN PO 04/25/17 01:00 04/25/17 09:27 Vancomycin HCl 1000 mg/Sodium Chloride 250 ml @ 250 mls/hr Q12H IV 04/25/17 09:00 04/27/17 10:20 Pharmacy Profile Note 0 ml @ 0 mls/hr UNSCH OTHER 04/25/17 01:00 (Aspirin Chew) 81 mg DAILY CHEW 04/25/17 15:00 04/27/17 08:41 (Percocet 10-325 Mg) 1 tab Q4H PRN PO 04/25/17 14:30 04/27/17 08:40 (Ativan) 1 mg TID PRN PO 04/26/17 12:30 (Duoneb Neb) 1 ampule Q2HR NEB PRN NEB 04/26/17 14:15 (Duoneb Neb) 1 ampule Q6HR WHILE AWAKE NEB NEB 04/26/17 14:15 04/27/17 08:09 A/P Problem List: (1) Infected ulcer of skin ICD Code: L98.499 - Non-pressure chronic ulcer of skin of other sites with unspecified severity; L08.9 - Local infection of the skin and subcutaneous tissue, unspecified Status: Acute (2) H/O endocarditis ICD Code: Z86.79 - Personal history of other diseases of the circulatory system Status: Chronic (3) Systolic CHF, chronic ICD Code: I50.22 - Chronic systolic (congestive) heart failure Status: Chronic (4) History of heart valve replacement ICD Code: Z95.2 - Presence of prosthetic heart valve (5) Anxiety ICD Code: F41.9 - Anxiety disorder, unspecified Status: Acute Assessment and Plan Acute respiratory failure With CO2 retention. CTA negative. Transitioned back to MS from NRB. Unsure of cause. - repeat ABG and wean O2 as tolerated. - standing and as needed nebs. - IS. - encourage ambulation. Acute chest pain Left-sided. Family history significant for CAD. EKG without acute ischemic changes. Trops peaked at 0.07. CTA negative. Cardiology consult appreciated. - telemetry. - stress test in AM. Back wound Reportedly started as reaction to Zosyn. Patient has been caring for it herself. Did not follow up outpatient with wound care. Wound nurse recommendations appreciated. Seems to be clean and without evidence of infection. Wound culture with normal heath. - wound care as recommended by wound nurse. - d/c vancomycin. - Pain control with a bowel regimen. D/c IV Dilaudid. - follow blood cultures. H/O endocarditis Recently treated at [facility] in [place] for bacteremia. - Repeat blood cultures. NGTD. - cardiology following. Systolic CHF, chronic No evidence of fluid overload at this time. Most recent echo in out system with normal EF. - Continue metoprolol. - Hold lisinopril and Aldactone due to low blood pressure. Resume when appropriate. History of heart valve replacement On Lovenox. States Coumadin did not work for her. - continue Lovenox. Migraines The patient stated that she has had migraines since she developed brain hematomas this past summer. - Pain control as needed. PPx: Lovenox Greater than 30 minutes of critical care time was spent on the patient, not counting documentation. Discharge Planning Await stress test Problem Qualifiers (1) Infected ulcer of skin: Qualified Codes: L98.491 - Non-pressure chronic ulcer of skin of other sites limited to breakdown of skin; L08.9 - Local infection of the skin and subcutaneous tissue, unspecified Allan Winters DO Apr 27, 2017 12:04
--- NOTE | 2017-04-27 12:46 | PD.CARD.PN ---
Subjective Subjective Remarks Pt reports continue random CP on right and left chest Objective Medications Current Medications Medications (Trade) Dose Ordered Sig/Lele Route Start Time Stop Time Status Last Admin (Pepcid Inj) 20 mg ONCE IV PUSH 04/24/17 20:15 04/24/17 21:06 (NS Flush) 2 ml UNSCH PRN IV FLUSH 04/24/17 23:30 (NS Flush) 2 ml BID IV FLUSH 04/25/17 09:00 04/26/17 21:29 (Tylenol) 650 mg Q4H PRN PO 04/24/17 23:30 (Zofran Inj) 4 mg Q6H PRN IVP 04/24/17 23:30 04/26/17 21:29 (Narcan Inj) 0.4 mg UNSCH PRN IV PUSH 04/24/17 23:30 (Milk Of Magnesia Liq) 30 ml Q12H PRN PO 04/24/17 23:30 (Senokot) 17.2 mg Q12H PRN PO 04/24/17 23:30 (Dulcolax Supp) 10 mg DAILY PRN RECTAL 04/24/17 23:30 (Lactulose Liq) 30 ml DAILY PRN PO 04/24/17 23:30 (Lovenox Inj) 100 mg DAILY SQ 04/25/17 09:00 04/27/17 08:42 (Ferrous Sulfate Liq) 15 mg BID PO 04/25/17 09:00 04/27/17 08:44 (PROzac) 10 mg DAILY PO 04/25/17 09:00 04/27/17 08:41 (Toprol Xl) 12.5 mg BID PO 04/25/17 09:00 04/25/17 21:37 (Protonix) 40 mg DAILY PO 04/25/17 09:00 04/27/17 08:41 (Topamax) 25 mg BID PO 04/25/17 09:00 04/27/17 08:42 (Percocet 5-325 Mg) 1 tab Q6H PRN PO 04/25/17 01:00 04/25/17 09:27 (Aspirin Chew) 81 mg DAILY CHEW 04/25/17 15:00 04/27/17 08:41 (Percocet 10-325 Mg) 1 tab Q4H PRN PO 04/25/17 14:30 04/27/17 08:40 (Ativan) 1 mg TID PRN PO 04/26/17 12:30 (Duoneb Neb) 1 ampule Q2HR NEB PRN NEB 04/26/17 14:15 (Duoneb Neb) 1 ampule Q6HR WHILE AWAKE NEB NEB 04/26/17 14:15 04/27/17 08:09 Vital Signs / I&O Vital Signs Date Time Temp Pulse Resp B/P (MAP) Pulse Ox O2 Delivery O2 Flow Rate FiO2 04/27/17 12:00 98.6 74 16 102/55 (71) 98 04/27/17 11:17 98 Nasal Cannula 3.00 04/27/17 08:11 97 Nasal Cannula 2.00 04/27/17 08:00 97.7 72 18 99/59 (72) 99 04/27/17 04:48 98.5 74 18 94/50 (65) 100 04/27/17 04:19 67 04/27/17 00:34 98.5 70 18 95/50 (65) 97 04/27/17 00:28 69 04/27/17 00:24 97 Nasal Cannula 3.00 04/26/17 20:42 95 Nasal Cannula 3.00 04/26/17 20:28 98.2 73 20 94/49 (64) 94 04/26/17 20:05 67 04/26/17 19:45 16 04/26/17 19:10 16 04/26/17 16:00 98.4 91 18 100/59 (73) 96 I/O 04/26/17 04/26/17 04/26/17 04/27/17 04/27/17 04/27/17 07:00 15:00 23:00 07:00 15:00 23:00 Intake Total 720 ml Output Total 5 ml Balance 715 ml Intake Oral 720 ml Output Urine Total 5 ml # Voids 10 1 # Bowel Movements 1 Physical Exam GENERAL: Well developed, well nourished. No acute distress. HEENT: Jugular venous pressure is normal. CHEST: Lungs clear to auscultation bilaterally. Unlabored respiratory effort. CARDIAC: Regular rate and rhythm without S3, S4, or murmur. ABDOMEN: Soft, nontender, no hepatosplenomegaly. Bowel sounds present. EXTREMITIES: No clubbing, cyanosis, or edema. Laboratory Laboratory Tests Test 04/26/17 13:40 04/26/17 21:00 04/27/17 03:41 Blood Urea Nitrogen 13 MG/DL 13 MG/DL Creatinine 0.79 MG/DL 0.74 MG/DL Random Glucose 100 MG/DL 94 MG/DL Total Protein 7.2 GM/DL 6.8 GM/DL Albumin 3.6 GM/DL 3.4 GM/DL Calcium Level 8.3 MG/DL 8.1 MG/DL Alkaline Phosphatase 163 U/L 152 U/L Aspartate Amino Transf (AST/SGOT) 63 U/L 33 U/L Alanine Aminotransferase (ALT/SGPT) 60 U/L 48 U/L Total Bilirubin 1.4 MG/DL 0.7 MG/DL Sodium Level 135 MEQ/L 139 MEQ/L Potassium Level 4.9 MEQ/L 3.8 MEQ/L Chloride Level 105 MEQ/L 107 MEQ/L Carbon Dioxide Level 25.2 MEQ/L 27.6 MEQ/L Anion Gap 5 MEQ/L 4 MEQ/L Estimat Glomerular Filtration Rate 87 ML/MIN 94 ML/MIN Troponin I 0.07 NG/ML 0.05 NG/ML 0.02 NG/ML White Blood Count 7.6 TH/MM3 Red Blood Count 3.26 MIL/MM3 Hemoglobin 10.0 GM/DL Hematocrit 30.6 % Mean Corpuscular Volume 94.0 FL Mean Corpuscular Hemoglobin 30.8 PG Mean Corpuscular Hemoglobin Concent 32.7 % Red Cell Distribution Width 14.6 % Platelet Count 300 TH/MM3 Mean Platelet Volume 7.4 FL Magnesium Level 2.2 MG/DL Direct Bilirubin 0.3 MG/DL Indirect Bilirubin 0.4 MG/DL Imaging Last [address] 04/26/17 0000 Signed Impressions: Service Date/Time: Wednesday, April 26, 2017 13:09 - CONCLUSION: 2 old areas of encephalomalacia on the right side. No evidence of acute hemorrhage, edema, mass, or mass effect. Keanu Monahan MD Chest X-Ray 04/26/17 0000 Signed Impressions: Service Date/Time: Wednesday, April 26, 2017 11:37 - CONCLUSION: Lungs grossly clear. Previous surgeries as above. Keanu Monahan MD CT Angiography 04/26/17 0000 Signed Impressions: Service Date/Time: Wednesday, April 26, 2017 11:29 - CONCLUSION: Normal examination with no evidence of pulmonary embolism. Minimal atelectasis scarring both lung bases. Keanu Monahan MD Chest X-Ray 04/25/17 0000 Signed Impressions: Service Date/Time: Tuesday, April 25, 2017 12:46 - CONCLUSION: Compensated cardiomegaly without failure. Kj Lozano MD FACR Assessment and Plan Assessment and Plan Atypical CP- pt is a rather young female for CAD, given her multiple risk factors and persistent pain, she will have further evaluation with a nuc stress Neida Rader MD Apr 27, 2017 12:46
--- NOTE | 2017-04-27 13:22 | EKG ---
Date Performed: 04/26/2017 Time Performed: 11:11:38 PTAGE: 26 years EKG: Sinus rhythm WITH FIRST DEGREE AV BLOCK INCOMPLETE RIGHT BUNDLE BRANCH BLOCK ABNORMAL RHYTHM ECG INTERPRETATION B ASED ON A DEFAULT AGE OF 39 YEARS PREVIOUS TRACING : 04/26/2017 05.09 DOCTOR: Keanu Lauren Interpretating Date/Time 04/27/2017 13:19:08
[2017-04-28] VITALS (11 sets, daily range): BP systolic 92–106; BP diastolic 50–58; PULSE 65–98; RESP 18; TEMP 98.2–99.1; O2SAT 93–99
[2017-04-28] MEDS: oxyCODONE/ACETAMINOPHEN 10 MG/325 MG TAB PO PRN ×4 (01:37→18:44)
[2017-04-28] MEDS: RESP: ALBUTEROL 2.5 MG/IPRATROPIUM 0.5 MG NEB (SCH) NEB ×2 (07:52→14:00)
--- NOTE | 2017-04-28 08:56 | PD.CARD.PN ---
Subjective Subjective Remarks Pt reports continued random CP on right and left chest- no change Objective Medications Current Medications Medications (Trade) Dose Ordered Sig/Lele Route Start Time Stop Time Status Last Admin (Pepcid Inj) 20 mg ONCE IV PUSH 04/24/17 20:15 04/24/17 21:06 (NS Flush) 2 ml UNSCH PRN IV FLUSH 04/24/17 23:30 (NS Flush) 2 ml BID IV FLUSH 04/25/17 09:00 04/27/17 21:07 (Tylenol) 650 mg Q4H PRN PO 04/24/17 23:30 (Zofran Inj) 4 mg Q6H PRN IVP 04/24/17 23:30 04/26/17 21:29 (Narcan Inj) 0.4 mg UNSCH PRN IV PUSH 04/24/17 23:30 (Milk Of Magnesia Liq) 30 ml Q12H PRN PO 04/24/17 23:30 (Senokot) 17.2 mg Q12H PRN PO 04/24/17 23:30 (Dulcolax Supp) 10 mg DAILY PRN RECTAL 04/24/17 23:30 (Lactulose Liq) 30 ml DAILY PRN PO 04/24/17 23:30 (Lovenox Inj) 100 mg DAILY SQ 04/25/17 09:00 04/27/17 08:42 (Ferrous Sulfate Liq) 15 mg BID PO 04/25/17 09:00 04/27/17 21:16 (PROzac) 10 mg DAILY PO 04/25/17 09:00 04/27/17 08:41 (Toprol Xl) 12.5 mg BID PO 04/25/17 09:00 04/27/17 21:08 (Protonix) 40 mg DAILY PO 04/25/17 09:00 04/27/17 08:41 (Topamax) 25 mg BID PO 04/25/17 09:00 04/27/17 21:08 (Percocet 5-325 Mg) 1 tab Q6H PRN PO 04/25/17 01:00 04/25/17 09:27 (Aspirin Chew) 81 mg DAILY CHEW 04/25/17 15:00 04/27/17 08:41 (Percocet 10-325 Mg) 1 tab Q4H PRN PO 04/25/17 14:30 04/28/17 06:23 (Ativan) 1 mg TID PRN PO 04/26/17 12:30 (Duoneb Neb) 1 ampule Q2HR NEB PRN NEB 04/26/17 14:15 (Duoneb Neb) 1 ampule Q6HR WHILE AWAKE NEB NEB 04/26/17 14:15 04/27/17 19:21 Vital Signs / I&O Vital Signs Date Time Temp Pulse Resp B/P (MAP) Pulse Ox O2 Delivery O2 Flow Rate FiO2 04/28/17 07:37 98.2 72 18 94/51 (65) 99 04/28/17 05:14 98.5 81 18 101/53 (69) 96 04/28/17 04:05 70 04/28/17 00:36 98.7 85 18 99/50 (66) 94 04/28/17 00:09 88 04/27/17 21:25 97 Nasal Cannula 3.00 04/27/17 20:06 98.7 97 18 122/60 (80) 100 04/27/17 19:53 83 04/27/17 19:23 100 Nasal Cannula 2.00 04/27/17 16:00 98.5 71 20 99/64 (76) 100 04/27/17 12:00 98.6 74 16 102/55 (71) 98 04/27/17 12:00 73 04/27/17 11:17 98 Nasal Cannula 3.00 I/O 04/27/17 04/27/17 04/27/17 04/28/17 04/28/17 04/28/17 07:00 15:00 23:00 07:00 15:00 23:00 Intake Total 960 ml Balance 960 ml Intake Oral 960 ml # Voids 1 # Bowel Movements 1 Physical Exam GENERAL: Well developed, well nourished. No acute distress. HEENT: Jugular venous pressure is normal. CHEST: Lungs clear to auscultation bilaterally. Unlabored respiratory effort. CARDIAC: Regular rate and rhythm without S3, S4, or murmur. ABDOMEN: Soft, nontender, no hepatosplenomegaly. Bowel sounds present. EXTREMITIES: No clubbing, cyanosis, or edema. Laboratory Laboratory Tests Test 04/27/17 12:50 Blood Gas Puncture Site LT RADIAL Blood Gas Patient Temperature 98.6 Blood Gas HCO3 23 mmol/L Blood Gas Base Excess -1.7 mmol/L Blood Gas Oxygen Saturation 92 % Arterial Blood pH 7.33 Arterial Blood Partial Pressure CO2 45 mmHg Arterial Blood Partial Pressure O2 70 mmHg Arterial Blood Oxygen Content 13.0 Vol % Arterial Blood Carboxyhemoglobin 1.2 % Arterial Blood Methemoglobin 0.8 % Blood Gas Hemoglobin 10.0 G/DL Oxygen Delivery Device NASAL CANNULA Blood Gas Liter Flow 4 L/M Assessment and Plan Assessment and Plan 3/5- no change, available PRN if no ischemia Atypical CP- pt is a rather young female for CAD, given her multiple risk factors and persistent pain, she will have further evaluation with a nuc stress today Neida Rader MD Apr 28, 2017 08:56
[2017-04-28] MEDS: SODIUM CHLORIDE 0.9% FLUSH 10 ML FLUSH IV FLUSH SCH ×2 (09:00→20:37)
[2017-04-28] MEDS: METOPROLOL SUCCINATE 25 MG EXTENDED RELEASE TAB PO SCH ×2 (09:00→21:00)
[2017-04-28] MEDS: ASPIRIN 81 MG CHEW TAB CHEW SCH (09:57)
[2017-04-28] MEDS: FLUoxetine HCL 10 MG CAP PO SCH (09:57)
[2017-04-28] MEDS: PANTOPRAZOLE SOD 40 MG DELAYED RELEASE TAB PO SCH (09:58)
[2017-04-28] MEDS: TOPIRAMATE 25 MG TAB PO SCH ×2 (09:58→20:37)
[2017-04-28] MEDS: ENOXAPARIN SODIUM 100 MG/ML SYRINGE SQ SCH (09:59)
[2017-04-28] MEDS: FERROUS SULFATE 15 MG/ML ELEMENTAL IRON 50 ML BTL PO SCH ×2 (10:01→20:37)
[2017-04-28] MEDS ORDERED: REGADENOSON INJ 0.4 MG/5 ML SYR ONE (11:17)
--- NOTE | 2017-04-28 12:49 | RADRPT ---
EXAM DATE/TIME: 04/28/2017 10:45 [place] COMPARISON: No previous studies available for comparison. INDICATIONS : Mid chest pressure for one day. Angina. Abnormal EKG. DOSE: 25.7 mCi Tc99m Myoview at stress. 8.5 mCi Tc99m Myoview at rest. 0.4 mg Lexiscan STRESS SYMPTOMS: Shortness of breath. EJECTION FRACTION: 61% MEDICAL HISTORY : Hepatitis C. SURGICAL HISTORY : Hysterectomy. Splenectomy. Tricuspid valve replacement. ENCOUNTER: Initial ACUITY: 1 day PAIN SCALE: 3/10 LOCATION: Bilateral chest TECHNIQUE: The patient underwent pharmacologic stress with infusion of prescribed dose. Continuous ECG tracing was monitored during stress. Gated SPECT imaging was performed after stress and conventional SPECT i maging was performed at rest. The examination was performed on a SPECT/CT scanner, both attenuation and non-corrected datasets were reviewed. FINDINGS: DISTRIBUTION: The maximum perfused segment at stress is in the distributed between the anterolateral and inferior w alls image sets were normalized to the anterolateral region wall. PERFUSION STUDY: The pattern of perfusion at stress shows 20-30% redistribution in the high anterior/anterolateral wal l. GATED STUDY: There is intact wall motion and thickening without hypokinetic or dyskinetic segments. CONCLUSION: 1. 20-30% redistribution in the high anterolateral wall. Findings could represent ischemia at the jelani ershed area between the LAD and circumflex. 2. Adequate wall motion throughout with an estimated ejection fraction of 61% RISK CATEGORY: Intermediate (1-3% Annual Mortality Rate) Gonzalez Tolliver MD on April 28, 2017 at 12:33 Board Certified Radiologist. This report was verified electronically.
--- NOTE | 2017-04-28 15:25 | HHI.PR ---
Subjective Remarks The patient complained of the same pain in her head, chest and back. She understood the results of her stress test. She had no acute concerns. Discussed with nursing. Objective Vitals Vital Signs Date Time Temp Pulse Resp B/P (MAP) Pulse Ox O2 Delivery O2 Flow Rate FiO2 04/28/17 07:37 98.2 72 18 94/51 (65) 99 04/28/17 05:14 98.5 81 18 101/53 (69) 96 04/28/17 04:05 70 04/28/17 00:36 98.7 85 18 99/50 (66) 94 04/28/17 00:09 88 04/27/17 21:25 97 Nasal Cannula 3.00 04/27/17 20:06 98.7 97 18 122/60 (80) 100 04/27/17 19:53 83 04/27/17 19:23 100 Nasal Cannula 2.00 04/27/17 16:00 98.5 71 20 99/64 (76) 100 I/O 04/27/17 04/27/17 04/27/17 04/28/17 04/28/17 04/28/17 06:59 14:59 22:59 06:59 14:59 22:59 Intake Total 960 ml Balance 960 ml Intake Oral 960 ml # Voids 1 # Bowel Movements 1 Result Diagram: 04/27/17 0341 04/27/17 0341 Imaging Last Impressions Myocardial Perfusion Scan Nuc Med 04/28/17 0600 Signed Impressions: Service Date/Time: Friday, April 28, 2017 10:45 - CONCLUSION: 1. 20-30%% redistribution in the high anterolateral wall. Findings could represent ischemia at the watershed area between the LAD and circumflex. 2. Adequate wall motion throughout with an estimated ejection fraction of 61%% RISK CATEGORY: Intermediate (1-3%% Annual Mortality Rate) Gonzalez Tolliver MD Head CT 04/26/17 0000 Signed Impressions: Service Date/Time: Wednesday, April 26, 2017 13:09 - CONCLUSION: 2 old areas of encephalomalacia on the right side. No evidence of acute hemorrhage, edema, mass, or mass effect. Keanu Monahan MD Chest X-Ray 04/26/17 0000 Signed Impressions: Service Date/Time: Wednesday, April 26, 2017 11:37 - CONCLUSION: Lungs grossly clear. Previous surgeries as above. Keanu Monahan MD CT Angiography 04/26/17 0000 Signed Impressions: Service Date/Time: Wednesday, April 26, 2017 11:29 - CONCLUSION: Normal examination with no evidence of pulmonary embolism. Minimal atelectasis scarring both lung bases. Keanu Monahan MD Objective Remarks GENERAL: No distress. SKIN: There is a healing wound over the right upper back. No evidence of infection. HEAD: Atraumatic. Normocephalic. No temporal or scalp tenderness. EYES: Pupils equal round and reactive. Extraocular motions intact. No scleral icterus. No injection or drainage. ENT: Nose without bleeding, purulent drainage or septal hematoma. Throat without erythema, tonsillar hypertrophy or exudate. Uvula midline. Airway patent. NECK: Trachea midline. No JVD or lymphadenopathy. Supple, nontender, no meningeal signs. CARDIOVASCULAR: Normal rate. Regular rhythm. Mechanical click noted. RESPIRATORY: Clear to auscultation. Breath sounds equal bilaterally. No wheezes , rales, or rhonchi. GASTROINTESTINAL: Abdomen soft, non-tender, nondistended. No hepato-splenomegaly , or palpable masses. No guarding. MUSCULOSKELETAL: Extremities without clubbing, cyanosis, or edema. No joint tenderness, effusion, or edema noted. NEUROLOGICAL: Awake and alert. Cranial nerves II through XII intact. Motor and sensory grossly within normal limits. Five out of 5 muscle strength in all muscle groups. Normal speech. PSYCH: Slightly flattened affect. Medications and IVs Current Medications Medications (Trade) Dose Ordered Sig/Lele Route Start Time Stop Time Status Last Admin (Pepcid Inj) 20 mg ONCE IV PUSH 04/24/17 20:15 04/24/17 21:06 (NS Flush) 2 ml UNSCH PRN IV FLUSH 04/24/17 23:30 (NS Flush) 2 ml BID IV FLUSH 04/25/17 09:00 04/28/17 09:00 (Tylenol) 650 mg Q4H PRN PO 04/24/17 23:30 (Zofran Inj) 4 mg Q6H PRN IVP 04/24/17 23:30 04/26/17 21:29 (Narcan Inj) 0.4 mg UNSCH PRN IV PUSH 04/24/17 23:30 (Milk Of Magnesia Liq) 30 ml Q12H PRN PO 04/24/17 23:30 (Senokot) 17.2 mg Q12H PRN PO 04/24/17 23:30 (Dulcolax Supp) 10 mg DAILY PRN RECTAL 04/24/17 23:30 (Lactulose Liq) 30 ml DAILY PRN PO 04/24/17 23:30 (Lovenox Inj) 100 mg DAILY SQ 04/25/17 09:00 04/28/17 09:59 (Ferrous Sulfate Liq) 15 mg BID PO 04/25/17 09:00 04/28/17 10:01 (PROzac) 10 mg DAILY PO 04/25/17 09:00 04/28/17 09:57 (Toprol Xl) 12.5 mg BID PO 04/25/17 09:00 04/27/17 21:08 (Protonix) 40 mg DAILY PO 04/25/17 09:00 04/28/17 09:58 (Topamax) 25 mg BID PO 04/25/17 09:00 04/28/17 09:58 (Percocet 5-325 Mg) 1 tab Q6H PRN PO 04/25/17 01:00 04/25/17 09:27 (Aspirin Chew) 81 mg DAILY CHEW 04/25/17 15:00 04/28/17 09:57 (Percocet 10-325 Mg) 1 tab Q4H PRN PO 04/25/17 14:30 04/28/17 10:03 (Ativan) 1 mg TID PRN PO 04/26/17 12:30 (Duoneb Neb) 1 ampule Q2HR NEB PRN NEB 04/26/17 14:15 (Duoneb Neb) 1 ampule Q6HR WHILE AWAKE NEB NEB 04/26/17 14:15 04/27/17 19:21 A/P Problem List: (1) Infected ulcer of skin ICD Code: L98.499 - Non-pressure chronic ulcer of skin of other sites with unspecified severity; L08.9 - Local infection of the skin and subcutaneous tissue, unspecified Status: Acute (2) H/O endocarditis ICD Code: Z86.79 - Personal history of other diseases of the circulatory system Status: Chronic (3) Systolic CHF, chronic ICD Code: I50.22 - Chronic systolic (congestive) heart failure Status: Chronic (4) History of heart valve replacement ICD Code: Z95.2 - Presence of prosthetic heart valve (5) Anxiety ICD Code: F41.9 - Anxiety disorder, unspecified Status: Acute Assessment and Plan Acute respiratory failure With CO2 retention, improved on repeat ABG. CTA negative. Transitioned back to [place] from [facility]. Unsure of cause. Possibly an anxiety attack. - wean O2 as tolerated. - standing and as needed nebs. - IS. - encourage ambulation. Acute chest pain Left-sided. Family history significant for CAD. EKG without acute ischemic changes. Trops peaked at 0.07. CTA negative. Cardiology consult appreciated. Stress test 04/28 showed: 20-30% redistribution in the high anterolateral wall; Findings could represent ischemia at the watershed area between the LAD and circumflex; Adequate wall motion throughout with an estimated ejection fraction of 61%. Discussed results with cardiology and radiology. - telemetry. - follow up with cardiology. Back wound Reportedly started as reaction to Zosyn. Patient has been caring for it herself. Did not follow up outpatient with wound care. Wound nurse recommendations appreciated. Seems to be clean and without evidence of infection. Wound culture with normal heath. - wound care as recommended by wound nurse. - d/c vancomycin. - Pain control with a bowel regimen. D/c IV Dilaudid. - follow blood cultures, NGTD. H/O endocarditis Recently treated at [facility] in [place] for bacteremia. - Repeat blood cultures. NGTD. - cardiology following. Systolic CHF, chronic No evidence of fluid overload at this time. Most recent echo in out system with normal EF. - Continue metoprolol. - Hold lisinopril and Aldactone due to low blood pressure. Resume when appropriate. History of heart valve replacement On Lovenox. States Coumadin did not work for her. - continue Lovenox. Migraines The patient stated that she has had migraines since she developed brain hematomas this past summer. - Pain control as needed. PPx: Lovenox Discharge Planning Await cardiology clearance Problem Qualifiers (1) Infected ulcer of skin: Qualified Codes: L98.491 - Non-pressure chronic ulcer of skin of other sites limited to breakdown of skin; L08.9 - Local infection of the skin and subcutaneous tissue, unspecified Allan Winters DO Apr 28, 2017 15:25
[2017-04-28] MEDS ORDERED: TOPA50TA7 PO (20:44)
[2017-04-29] VITALS (12 sets, daily range): BP systolic 99–115; BP diastolic 51–68; PULSE 77–130; RESP 17–20; TEMP 97.7–103.1; O2SAT 94–98
[2017-04-29] MEDS: LORazepam 1 MG TAB PO PRN ×2 (01:39→20:46)
[2017-04-29] MEDS: oxyCODONE/ACETAMINOPHEN 10 MG/325 MG TAB PO PRN ×3 (01:39→19:00)
[2017-04-29] MEDS: ONDANSETRON HCL 4 MG/2 ML VIAL IVP PRN (01:40)
[2017-04-29] MEDS: RESP: ALBUTEROL 2.5 MG/IPRATROPIUM 0.5 MG NEB (SCH) NEB ×3 (08:07→19:57)
[2017-04-29] MEDS: METOPROLOL SUCCINATE 25 MG EXTENDED RELEASE TAB PO SCH ×2 (09:00→20:51)
[2017-04-29] MEDS: TOPIRAMATE 25 MG TAB PO SCH ×2 (09:22→20:50)
[2017-04-29] MEDS: PANTOPRAZOLE SOD 40 MG DELAYED RELEASE TAB PO SCH (09:22)
[2017-04-29] MEDS: ASPIRIN 81 MG CHEW TAB CHEW SCH (09:23)
[2017-04-29] MEDS: FLUoxetine HCL 10 MG CAP PO SCH (09:23)
[2017-04-29] MEDS: ENOXAPARIN SODIUM 100 MG/ML SYRINGE SQ SCH (09:24)
[2017-04-29] MEDS: FERROUS SULFATE 15 MG/ML ELEMENTAL IRON 50 ML BTL PO SCH ×2 (09:24→20:51)
[2017-04-29] MEDS: SODIUM CHLORIDE 0.9% FLUSH 10 ML FLUSH IV FLUSH SCH ×2 (09:24→20:53)
[2017-04-29] MEDS: ACETAMINOPHEN 325 MG TAB PO PRN ×3 (11:13→20:46)
--- NOTE | 2017-04-29 15:18 | PD.CARD.PN ---
Subjective Subjective Remarks Asymptomatic Objective Medications Current Medications Medications (Trade) Dose Ordered Sig/Lele Route Start Time Stop Time Status Last Admin (NS Flush) 2 ml UNSCH PRN IV FLUSH 04/24/17 23:30 (NS Flush) 2 ml BID IV FLUSH 04/25/17 09:00 04/29/17 09:24 (Tylenol) 650 mg Q4H PRN PO 04/24/17 23:30 04/29/17 11:13 (Zofran Inj) 4 mg Q6H PRN IVP 04/24/17 23:30 04/29/17 01:40 (Narcan Inj) 0.4 mg UNSCH PRN IV PUSH 04/24/17 23:30 (Milk Of Magnesia Liq) 30 ml Q12H PRN PO 04/24/17 23:30 (Senokot) 17.2 mg Q12H PRN PO 04/24/17 23:30 (Dulcolax Supp) 10 mg DAILY PRN RECTAL 04/24/17 23:30 (Lactulose Liq) 30 ml DAILY PRN PO 04/24/17 23:30 (Lovenox Inj) 100 mg DAILY SQ 04/25/17 09:00 04/29/17 09:24 (Ferrous Sulfate Liq) 15 mg BID PO 04/25/17 09:00 04/29/17 09:24 (PROzac) 10 mg DAILY PO 04/25/17 09:00 04/29/17 09:23 (Toprol Xl) 12.5 mg BID PO 04/25/17 09:00 04/27/17 21:08 (Protonix) 40 mg DAILY PO 04/25/17 09:00 04/29/17 09:22 (Topamax) 25 mg BID PO 04/25/17 09:00 04/29/17 09:22 (Percocet 5-325 Mg) 1 tab Q6H PRN PO 04/25/17 01:00 04/25/17 09:27 (Aspirin Chew) 81 mg DAILY CHEW 04/25/17 15:00 04/29/17 09:23 (Percocet 10-325 Mg) 1 tab Q4H PRN PO 04/25/17 14:30 04/29/17 05:26 (Ativan) 1 mg TID PRN PO 04/26/17 12:30 04/29/17 01:39 (Duoneb Neb) 1 ampule Q2HR NEB PRN NEB 04/26/17 14:15 (Duoneb Neb) 1 ampule Q6HR WHILE AWAKE NEB NEB 04/26/17 14:15 04/29/17 12:13 Vital Signs / I&O Vital Signs Date Time Temp Pulse Resp B/P (MAP) Pulse Ox O2 Delivery O2 Flow Rate FiO2 04/29/17 11:42 102.1 100 20 100/55 (70) 94 04/29/17 08:08 96 Nasal Cannula 2.00 04/29/17 08:03 99.8 101 18 107/68 (81) 96 04/29/17 08:00 77 04/29/17 07:37 98 Room Air 04/29/17 06:00 97.7 85 17 102/59 (73) 96 04/29/17 05:28 96 Room Air 04/29/17 00:00 95 04/29/17 00:00 98.9 88 19 108/60 (76) 98 04/28/17 21:45 99.1 98 18 106/58 (74) 97 04/28/17 20:51 92 04/28/17 20:26 93 Nasal Cannula 2.00 04/28/17 16:39 98 Nasal Cannula 3.00 04/28/17 16:00 68 04/28/17 15:46 98.2 65 18 92/55 (67) 95 I/O 04/28/17 04/28/17 04/28/17 04/29/17 04/29/17 04/29/17 06:59 14:59 22:59 06:59 14:59 22:59 Intake Total 1235 ml 850 ml Balance 1235 ml 850 ml Intake Oral 1235 ml 850 ml # Voids 4 6 # Bowel Movements 0 0 Physical Exam GENERAL: Well developed, well nourished. No acute distress. HEENT: Jugular venous pressure is normal. CHEST: Lungs clear to auscultation bilaterally. Unlabored respiratory effort. CARDIAC: Regular rate and rhythm without S3, S4, +S 2/6 systolic murmur ABDOMEN: Soft, nontender, no hepatosplenomegaly. Bowel sounds present. EXTREMITIES: No clubbing, cyanosis, or edema. Imaging Last 72 hours Impressions Myocardial Perfusion Scan Nuc Med 04/28/17 0600 Signed Impressions: Service Date/Time: Friday, April 28, 2017 10:45 - CONCLUSION: 1. 20-30%% redistribution in the high anterolateral wall. Findings could represent ischemia at the watershed area between the LAD and circumflex. 2. Adequate wall motion throughout with an estimated ejection fraction of 61%% RISK CATEGORY: Intermediate (1-3%% Annual Mortality Rate) Gonzalez Tolliver MD Assessment and Plan Assessment and Plan Atypical CP- small, area of potential ischemia not felt to be etiology of CP at rest. - continue with medical management -consider non-cardiac CP etiologies Fever - per primary team Avaiable Neida Zapien MD Apr 29, 2017 15:18
[2017-04-29] MEDS ORDERED: Vancomycin Consult Pharmacy 1 EA OTHER SCH (17:15)
[2017-04-29] MEDS ORDERED: VANCOMYCIN INJ 1,000 MG in SODIUM CHLOR 0.9% 250 ML INJ 250 ML IV SCH (17:15)
--- NOTE | 2017-04-29 17:18 | HHI.PR ---
Subjective Remarks The patient is having high-grade fevers with a T-max of 102.3. The patient complains of cough. The patient also states has a blister in her back which she had after she was given IV Zosyn. Denies diarrhea, nausea, vomiting, abdominal pain, dysuria. Also complains of headache. Objective Vitals Vital Signs Date Time Temp Pulse Resp B/P (MAP) Pulse Ox O2 Delivery O2 Flow Rate FiO2 04/29/17 16:08 102.9 111 20 115/56 (75) 94 04/29/17 12:00 93 04/29/17 11:42 102.1 100 20 100/55 (70) 94 04/29/17 08:08 96 Nasal Cannula 2.00 04/29/17 08:03 99.8 101 18 107/68 (81) 96 04/29/17 08:00 77 04/29/17 07:37 98 Room Air 04/29/17 06:00 97.7 85 17 102/59 (73) 96 04/29/17 05:28 96 Room Air 04/29/17 00:00 95 04/29/17 00:00 98.9 88 19 108/60 (76) 98 04/28/17 21:45 99.1 98 18 106/58 (74) 97 04/28/17 20:51 92 04/28/17 20:26 93 Nasal Cannula 2.00 I/O 04/28/17 04/28/17 04/28/17 04/29/17 04/29/17 04/29/17 07:00 15:00 23:00 07:00 15:00 23:00 Intake Total 1235 ml 850 ml 480 ml Balance 1235 ml 850 ml 480 ml Intake Oral 1235 ml 850 ml 480 ml # Voids 4 6 5 # Bowel Movements 0 0 1 Result Diagram: 04/27/17 0341 04/27/17 0341 Imaging Last Impressions Myocardial Perfusion Scan Nuc Med 04/28/17 0600 Signed Impressions: Service Date/Time: Friday, April 28, 2017 10:45 - CONCLUSION: 1. 20-30%% redistribution in the high anterolateral wall. Findings could represent ischemia at the watershed area between the LAD and circumflex. 2. Adequate wall motion throughout with an estimated ejection fraction of 61%% RISK CATEGORY: Intermediate (1-3%% Annual Mortality Rate) Gonzalez Tolliver MD Head CT 04/26/17 0000 Signed Impressions: Service Date/Time: Wednesday, April 26, 2017 13:09 - CONCLUSION: 2 old areas of encephalomalacia on the right side. No evidence of acute hemorrhage, edema, mass, or mass effect. Keanu Monahan MD Chest X-Ray 04/26/17 0000 Signed Impressions: Service Date/Time: Wednesday, April 26, 2017 11:37 - CONCLUSION: Lungs grossly clear. Previous surgeries as above. Keanu Monahan MD CT Angiography 04/26/17 0000 Signed Impressions: Service Date/Time: Wednesday, April 26, 2017 11:29 - CONCLUSION: Normal examination with no evidence of pulmonary embolism. Minimal atelectasis scarring both lung bases. Keanu Monahan MD Objective Remarks GENERAL: No distress. SKIN: There is an open ulcer with erythema at the base and surrounding the ulcer on the right upper back. HEAD: Atraumatic. Normocephalic. No temporal or scalp tenderness. EYES: Pupils equal round and reactive. Extraocular motions intact. No scleral icterus. No injection or drainage. ENT: Nose without bleeding, purulent drainage or septal hematoma. Throat without erythema, tonsillar hypertrophy or exudate. Uvula midline. Airway patent. NECK: Trachea midline. No JVD or lymphadenopathy. Supple, nontender, no meningeal signs. CARDIOVASCULAR: Normal rate. Regular rhythm. Mechanical click noted. RESPIRATORY: Clear to auscultation. Breath sounds equal bilaterally. No wheezes , rales, or rhonchi. GASTROINTESTINAL: Abdomen soft, non-tender, nondistended. No hepato-splenomegaly , or palpable masses. No guarding. MUSCULOSKELETAL: Extremities without clubbing, cyanosis, or edema. No joint tenderness, effusion, or edema noted. NEUROLOGICAL: Awake and alert. Cranial nerves II through XII intact. Motor and sensory grossly within normal limits. Five out of 5 muscle strength in all muscle groups. Normal speech. PSYCH: Slightly flattened affect. Medications and IVs Current Medications Medications (Trade) Dose Ordered Sig/Lele Route Start Time Stop Time Status Last Admin (NS Flush) 2 ml UNSCH PRN IV FLUSH 04/24/17 23:30 (NS Flush) 2 ml BID IV FLUSH 04/25/17 09:00 04/29/17 09:24 (Tylenol) 650 mg Q4H PRN PO 04/24/17 23:30 04/29/17 16:46 (Zofran Inj) 4 mg Q6H PRN IVP 04/24/17 23:30 04/29/17 01:40 (Narcan Inj) 0.4 mg UNSCH PRN IV PUSH 04/24/17 23:30 (Milk Of Magnesia Liq) 30 ml Q12H PRN PO 04/24/17 23:30 (Senokot) 17.2 mg Q12H PRN PO 04/24/17 23:30 (Dulcolax Supp) 10 mg DAILY PRN RECTAL 04/24/17 23:30 (Lactulose Liq) 30 ml DAILY PRN PO 04/24/17 23:30 (Lovenox Inj) 100 mg DAILY SQ 04/25/17 09:00 04/29/17 09:24 (Ferrous Sulfate Liq) 15 mg BID PO 04/25/17 09:00 04/29/17 09:24 (PROzac) 10 mg DAILY PO 04/25/17 09:00 04/29/17 09:23 (Toprol Xl) 12.5 mg BID PO 04/25/17 09:00 04/27/17 21:08 (Protonix) 40 mg DAILY PO 04/25/17 09:00 04/29/17 09:22 (Topamax) 25 mg BID PO 04/25/17 09:00 04/29/17 09:22 (Percocet 5-325 Mg) 1 tab Q6H PRN PO 04/25/17 01:00 04/25/17 09:27 (Aspirin Chew) 81 mg DAILY CHEW 04/25/17 15:00 04/29/17 09:23 (Percocet 10-325 Mg) 1 tab Q4H PRN PO 04/25/17 14:30 04/29/17 05:26 (Ativan) 1 mg TID PRN PO 04/26/17 12:30 04/29/17 01:39 (Duoneb Neb) 1 ampule Q2HR NEB PRN NEB 04/26/17 14:15 (Duoneb Neb) 1 ampule Q6HR WHILE AWAKE NEB NEB 04/26/17 14:15 04/29/17 12:13 A/P Problem List: (1) Infected ulcer of skin ICD Code: L98.499 - Non-pressure chronic ulcer of skin of other sites with unspecified severity; L08.9 - Local infection of the skin and subcutaneous tissue, unspecified Status: Acute (2) H/O endocarditis ICD Code: Z86.79 - Personal history of other diseases of the circulatory system Status: Chronic (3) Systolic CHF, chronic ICD Code: I50.22 - Chronic systolic (congestive) heart failure Status: Chronic (4) History of heart valve replacement ICD Code: Z95.2 - Presence of prosthetic heart valve (5) Anxiety ICD Code: F41.9 - Anxiety disorder, unspecified Status: Acute Assessment and Plan Sepsis/fever Patient has fevers and tachycardia. Unclear source of infection however possible sources include lungs, skin and urine. I will obtain a chest x-ray, urinalysis and blood cultures. I will start the patient IV vancomycin and IV Levaquin. Check 2D echocardiogram. Consult infectious disease Acute hypercarbic respiratory failure. With CO2 retention, improved on repeat ABG. CTA negative. Transitioned back to [place] from [facility]. Unsure of cause. Possibly an anxiety attack. - wean O2 as tolerated. - standing and as needed nebs. - IS. - encourage ambulation. 04/29 much improved. Continue supplemental oxygen as tolerated. Acute chest pain Left-sided. Family history significant for CAD. EKG without acute ischemic changes. Trops peaked at 0.07. CTA negative. Cardiology consult appreciated. Stress test 04/28 showed: 20-30% redistribution in the high anterolateral wall; Findings could represent ischemia at the watershed area between the LAD and circumflex; Adequate wall motion throughout with an estimated ejection fraction of 61%. Discussed results with cardiology and radiology. Continue telemetry. 04/29 nuclear stress testing with 20-30% with distribution height anterolateral wall.. Findings could represent ischemia at the watershed area between the LAD and the circumflex. We will obtain chest x-ray since patient is having no fevers. Possible chest pain could be secondary to pneumonia versus skin lesion in the right upper back. Back wound Reportedly started as reaction to Zosyn. Patient has been caring for it herself. Did not follow up outpatient with wound care. Wound nurse recommendations appreciated. Seems to be clean and without evidence of infection. Wound culture with normal heath. - wound care as recommended by wound nurse. -Initially started on IV vancomycin. - Pain control with a bowel regimen. D/c IV Dilaudid. - follow blood cultures, NGTD. 04/01 I will consult infectious disease and start the patient IV outpatient antibiotic therapy given no fevers. H/O endocarditis Recently treated at [facility] in [place] for bacteremia. - Repeat blood cultures. NGTD. - cardiology following. Systolic CHF, chronic No evidence of fluid overload at this time. Most recent echo in out system with normal EF. - Continue metoprolol. - Hold lisinopril and Aldactone due to low blood pressure. Resume when appropriate. History of heart valve replacement On Lovenox. States Coumadin did not work for her. - continue Lovenox. Migraines The patient stated that she has had migraines since she developed brain hematomas this past summer. - Pain control as needed. PPx: Lovenox Discharge Planning Continue to monitor the medical floor. Patient having high-grade fevers. ID consulted. Problem Qualifiers (1) Infected ulcer of skin: Qualified Codes: L98.491 - Non-pressure chronic ulcer of skin of other sites limited to breakdown of skin; L08.9 - Local infection of the skin and subcutaneous tissue, unspecified García Rg MD Apr 29, 2017 17:18
[2017-04-29 18:59] LABS: AUTOMATED NEUTROPHIL # 8.3 TH/MM3 (1.8-7.7); BASOPHIL # 0.1 TH/MM3 (0-0.2); BASOPHIL % 0.5 % (0.0-2.0); EOSINOPHIL # 0.5 TH/MM3 (0-0.4); EOSINOPHIL % 4.7 % (0.0-4.0); HEMATOCRIT 32.5 % (35.0-46.0); HEMOGLOBIN 10.8 GM/DL (11.6-15.3); LYMPH % 12.7 % (9.0-44.0); LYMPHOCYTE # 1.4 TH/MM3 (1.0-4.8); MEAN CELL VOLUME 94.7 FL (80.0-100.0); MEAN CORPUSCULAR HEMOGLOBIN 31.4 PG (27.0-34.0); MEAN CORPUSCULAR HGB CONC 33.1 % (32.0-36.0); MEAN PLATELET VOLUME 7.9 FL (7.0-11.0); MONO % 6.8 % (0.0-8.0); MONOCYTE # 0.7 TH/MM3 (0-0.9); NEUT % 75.3 % (16.0-70.0); PLATELET COUNT 357 TH/MM3 (150-450); RED BLOOD COUNT 3.43 MIL/MM3 (4.00-5.30); RED CELL DISTRIBUTION WIDTH 14.6 % (11.6-17.2)
[2017-04-29] MEDS: VANCOMYCIN 1,000 MG/NS 250 ML IV SCH ×2 (19:01)
[2017-04-29 19:12] LABS: ALBUMIN 3.9 GM/DL (3.4-5.0); AST (GOT) 19 U/L (15-37); BICARBONATE 24.1 MEQ/L (21.0-32.0); BLOOD UREA NITROGEN 11 MG/DL (7-18); CALCIUM 8.6 MG/DL (8.5-10.1); CHLORIDE 102 MEQ/L (98-107); GLUCOSE,RANDOM 86 MG/DL (74-106); MAGNESIUM 1.9 MG/DL (1.5-2.5); SODIUM (NA) 135 MEQ/L (136-145)
[2017-04-29 19:13] LABS: CREATININE 0.91 MG/DL (0.50-1.00); GLOMERULAR FILTRATION RATE 74 ML/MIN (>89)
[2017-04-29 19:16] LABS: ALKALINE PHOSPHATASE 171 U/L (45-117); ALT (GPT) 30 U/L (10-53); PHOSPHORUS 2.5 MG/DL (2.5-4.9); TOTAL BILIRUBIN ADULT 1.1 MG/DL (0.2-1.0); TOTAL PROTEIN 7.8 GM/DL (6.4-8.2)
[2017-04-29 19:33] LABS: BILIRUBIN, URINE NEG (NEG); BLOOD, URINE SMALL (NEG); GLUCOSE,URINE NEG (NEG); HYALINE CAST, URINE 1 /lpf (RARE); KETONE, URINE NEG (NEG); MUCUS URINE FEW /lpf (OCC); NITRITE,URINE NEG (NEG); PH, URINE 8.5 (5.0-8.5); SQUAMOUS EPITHELIAL CELL URINE 6 /hpf (0-5); URINE COLOR YELLOW (YELLW/STRAW); URINE LEUKOCYTE ESTERASE NEG (NEG)
--- NOTE | 2017-04-29 20:16 | RADRPT ---
EXAM DATE/TIME: 04/29/2017 19:23 [facility] COMPARISON: CHEST SINGLE AP, April 26, 2017, 11:37. INDICATIONS : Fever. Infected wound on back. MEDICAL HISTORY : Hepatitis C. SURGICAL HISTORY : Pacemaker. Hysterectomy. Splenectomy. Tricuspid valve replacement. ENCOUNTER: Initial ACUITY: 3 days PAIN SCORE: 0/10 LOCATION: Bilateral chest FINDINGS: Frontal view of the chest demonstrates the lungs to be symmetrically aerated. Mild pleural thickenin g laterally in the right chest is similar to prior examination. Both hemidiaphragms are well delinea al. The heart is normal in size. Evidence of prior median sternotomy and valve replacement. Cardi ac pacer lead stable position. No evidence of pneumothorax. CONCLUSION: The lungs are clear. Stable right lateral pleural thickening. Andrey Virk MD on April 29, 2017 at 20:13 Board Certified Radiologist. This report was verified electronically.
[2017-04-29] MEDS: oxyCODONE/ACETAMINOPHEN 5 MG/325 MG TAB PO PRN (20:46)
[2017-04-29] MEDS: LEVOFLOXACIN 750 MG PREMIX INJ 150 ML IV SCH (20:47)
[2017-04-29] MEDS ORDERED: SODIUM CHLOR 0.9% 1000 ML INJ 1,000 ML IV ONE (21:45)
[2017-04-30] VITALS (12 sets, daily range): BP systolic 91–116; BP diastolic 49–60; PULSE 70–112; RESP 16–18; TEMP 97.6–99.8; O2SAT 94–96
[2017-04-30] MEDS: VANCOMYCIN 1,000 MG/NS 250 ML IV SCH ×6 (02:14→20:42)
[2017-04-30] MEDS: oxyCODONE/ACETAMINOPHEN 10 MG/325 MG TAB PO PRN ×2 (02:18→14:27)
[2017-04-30] MEDS ORDERED: OXYMETAZOLINE HCL 0.05% 15 ML NASAL SPRAY NASAL ONE (05:30)
[2017-04-30 05:52] LABS: HEMATOCRIT 29.5 % (35.0-46.0); HEMOGLOBIN 9.8 GM/DL (11.6-15.3)
[2017-04-30 05:55] LABS: AUTOMATED NEUTROPHIL # 11.2 TH/MM3 (1.8-7.7); BASOPHIL % 0.4 % (0.0-2.0); EOSINOPHIL # 0.1 TH/MM3 (0-0.4); EOSINOPHIL % 0.7 % (0.0-4.0); HEMATOCRIT 30.2 % (35.0-46.0); HEMOGLOBIN 9.9 GM/DL (11.6-15.3); LYMPH % 11.2 % (9.0-44.0); LYMPHOCYTE # 1.5 TH/MM3 (1.0-4.8); MEAN CELL VOLUME 93.6 FL (80.0-100.0); MEAN CORPUSCULAR HEMOGLOBIN 30.8 PG (27.0-34.0); MEAN CORPUSCULAR HGB CONC 32.9 % (32.0-36.0); MEAN PLATELET VOLUME 7.7 FL (7.0-11.0); MONO % 4.8 % (0.0-8.0); MONOCYTE # 0.7 TH/MM3 (0-0.9); NEUT % 82.9 % (16.0-70.0); PLATELET COUNT 293 TH/MM3 (150-450); RED BLOOD COUNT 3.22 MIL/MM3 (4.00-5.30); RED CELL DISTRIBUTION WIDTH 14.2 % (11.6-17.2); WHITE BLOOD COUNT 13.5 TH/MM3 (4.0-11.0)
[2017-04-30 06:18] LABS: ALBUMIN 3.4 GM/DL (3.4-5.0); AST (GOT) 16 U/L (15-37); BICARBONATE 22.9 MEQ/L (21.0-32.0); BLOOD UREA NITROGEN 10 MG/DL (7-18); CHLORIDE 106 MEQ/L (98-107); CREATININE 0.83 MG/DL (0.50-1.00); GLOMERULAR FILTRATION RATE 82 ML/MIN (>89); GLUCOSE,RANDOM 84 MG/DL (74-106); SODIUM (NA) 138 MEQ/L (136-145)
[2017-04-30 06:19] LABS: ALT (GPT) 29 U/L (10-53); PHOSPHORUS 2.9 MG/DL (2.5-4.9)
[2017-04-30 06:21] LABS: ALKALINE PHOSPHATASE 150 U/L (45-117); TOTAL BILIRUBIN ADULT 0.9 MG/DL (0.2-1.0)
[2017-04-30] MEDS: RESP: ALBUTEROL 2.5 MG/IPRATROPIUM 0.5 MG NEB (SCH) NEB (08:00)
[2017-04-30] MEDS: ENOXAPARIN SODIUM 100 MG/ML SYRINGE SQ SCH (09:00)
[2017-04-30] MEDS: PANTOPRAZOLE SOD 40 MG DELAYED RELEASE TAB PO SCH (09:58)
[2017-04-30] MEDS: METOPROLOL SUCCINATE 25 MG EXTENDED RELEASE TAB PO SCH ×2 (09:58→20:43)
[2017-04-30] MEDS: FLUoxetine HCL 10 MG CAP PO SCH (09:58)
[2017-04-30] MEDS: ASPIRIN 81 MG CHEW TAB CHEW SCH (09:59)
[2017-04-30] MEDS: TOPIRAMATE 25 MG TAB PO SCH ×2 (09:59→20:44)
[2017-04-30] MEDS: FERROUS SULFATE 15 MG/ML ELEMENTAL IRON 50 ML BTL PO SCH ×2 (09:59→20:44)
[2017-04-30] MEDS: SODIUM CHLORIDE 0.9% FLUSH 10 ML FLUSH IV FLUSH SCH ×2 (09:59→20:43)
[2017-04-30 15:53] LABS: HEMATOCRIT 29.1 % (35.0-46.0); HEMOGLOBIN 9.7 GM/DL (11.6-15.3); MEAN CELL VOLUME 94.4 FL (80.0-100.0); MEAN CORPUSCULAR HEMOGLOBIN 31.3 PG (27.0-34.0); MEAN CORPUSCULAR HGB CONC 33.2 % (32.0-36.0); MEAN PLATELET VOLUME 7.7 FL (7.0-11.0); PLATELET COUNT 283 TH/MM3 (150-450); RED BLOOD COUNT 3.08 MIL/MM3 (4.00-5.30); RED CELL DISTRIBUTION WIDTH 14.5 % (11.6-17.2); WHITE BLOOD COUNT 8.6 TH/MM3 (4.0-11.0)
[2017-04-30 16:01] LABS: INTERNATIONAL NORMALIZED RATIO 1.2 RATIO; PROTHROMBIN TIME - PATIENT 12.3 SEC (9.8-11.6)
--- NOTE | 2017-04-30 16:08 | MB ---
cc: Sunny Rowley MD DATE OF CONSULT: 04/30/2017 REQUESTING PHYSICIAN: García Trinh MD REASON FOR CONSULTATION: High-grade fever in patient with history of endocarditis and mechanical valve replacement. HISTORY OF PRESENT ILLNESS: This is a 26-year-old white female who has had endocarditis and mitral and tricuspid valve replacements in 2010. Patient was recently treated at [facility] in [place] back in January for bacteremia with Zosyn. She developed a reaction to Zosyn in the form of blisters at her right upper back which never really healed completely. Patient had a pacemaker implanted also in 01/2017. She was home taking care of the wound and she noted that it started developing pus drainage. She presented to emergency department on 04/24 with complaints of chest pain. She has been evaluated by cardiology. She underwent a myocardial perfusion scan and the report states findings could represent ischemia at the watershed area between the LAD and circumflex. The patient has been on Lovenox. She currently is having nosebleeds. She states also that she gets blood when she coughs. She developed elevation in temperature of 102 degrees on 04/29 and the temperature stayed pretty high all day on 04/29. The temperature is now down to normal. She was started on vancomycin on 04/24 and also on Levaquin. The patient states that she gets chills off and on. She states that she has been getting chills off and on for at least a couple of weeks. The white blood cell count was normal after admission and then today it has increased to 13.5. Blood cultures taken on 04/24 have no growth. Blood cultures repeated on 04/29 have no growth in 1 day. Patient notes that she has pain in the left upper back. The other studies so far include chest x-ray which shows no acute infiltrates. CT scan of the head shows 2 old areas of encephalomalacia on the right side. No evidence of acute hemorrhage. The patient also tells me that she has had migraine headaches over the past couple of months. She has quite a bit of bloody drainage coming from the nose. Her hemoglobin is stable. 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 The patient denies the use of IV drugs for years now. ALLERGIES: PIPERACILLIN/TAZOBACTAM, NAPROXEN, MORPHINE, GABAPENTIN, CODEINE, FISH-CONTAINING PRODUCTS. MEDICATIONS: Vancomycin, Levaquin, Ativan, Percocet, Lovenox, ferrous sulfate, Prozac, Toprol-XL, Protonix. SOCIAL HISTORY: Denies tobacco. Denies alcohol. Positive use of marijuana. Denies IV drug use. PHYSICAL EXAMINATION: This is a well-developed female who is in no acute distress. She has current bleeding through the nose. She is awake, alert and oriented. VITAL SIGNS: Include temperature of 98.7, BP 105/54, respirations 17, heart rate 71. HEENT: The head is atraumatic. Extraocular movements grossly intact. Pupils reactive to light. No icterus. Nose reveals epistaxis. Oropharynx, moist mucosa without lesions. NECK: Supple without adenopathy. LUNGS: Clear breath sounds which are decreased at the bases. HEART: Had II/ systolic ejection murmur at the upper right sternal border. Also, III/ systolic ejection murmur at the upper left sternal border. No rubs or gallops. ABDOMEN: Bowel sounds present, soft, no tenderness appreciated. BACK: There is swelling at the right upper back and an area with superficial ulceration in 3 different locations at the right upper back. These are next to each other. There is erythema and the back has raised area of swelling over which the ulcer is located. RECTAL: Not performed. EXTREMITIES: No clubbing or cyanosis or edema. SKIN: No diffuse rash. NEUROLOGIC: No gross focal findings. PSYCHIATRIC: The patient is calm and cooperative. LABORATORY STUDIES: WBC 13.5, platelet count 293, 82% neutrophils, hemoglobin 9.8, creatinine 0.83, BUN 10, sodium 138, LFTs normal. IMPRESSION: 1. Fever and now leukocytosis in patient who has history of endocarditis of mitral and tricuspid valve. 2. Probable sepsis. 3. Chest pain on admission. 4. Right upper back wound from prior allergic reaction to Zosyn, nonhealing. 5. Epistaxis. RECOMMENDATIONS: 1. Continue vancomycin. 2. Continue Levaquin. 3. Obtain 2-D echocardiogram for further evaluation for potential endocarditis. 4. Monitor blood cultures. 5. Monitor temperature. 6. Monitor white blood cell count. 7. Monitor clinical status. 8. Wound care has given recommendations for treatment of the wound on the right upper back. The wound does not look acutely infected, but there is some erythema. There is no drainage to suggest ongoing infection. Previous culture on 04/24 yielded heavy growth of normal skin heath. Thank you for this consultation. The patient will be monitored and further recommendations will be given on followup. Sunny Rowley MD FFD/TI , 03:28 PM , 04:06 PM
--- NOTE | 2017-04-30 16:36 | HHI.PR ---
Subjective Remarks As per RN the patient has been having epistaxis since last night. Denies chest pain or shortness of breath, still having epistaxis. Denies dizziness. Patient had high-grade fevers on 04/29 with a T-max of 103.1. Objective Vitals Vital Signs Date Time Temp Pulse Resp B/P (MAP) Pulse Ox O2 Delivery O2 Flow Rate FiO2 04/30/17 16:03 98.5 78 18 103/57 (72) 96 04/30/17 13:48 71 04/30/17 13:48 94 Room Air 04/30/17 12:15 98.7 75 17 105/54 (71) 94 04/30/17 12:00 71 04/30/17 08:17 98.2 70 17 91/49 (63) 96 04/30/17 08:00 74 04/30/17 05:20 97.6 88 18 105/60 (75) 95 04/30/17 05:05 96 04/30/17 03:05 98.9 93 18 116/57 (76) 94 04/30/17 00:02 99.8 112 18 108/56 (73) 95 04/30/17 00:01 95 Nasal Cannula 2.00 04/29/17 22:00 102.1 100 18 99/58 (72) 96 04/29/17 21:25 102.9 130 18 99/51 (67) 95 04/29/17 20:40 103.1 113 18 115/56 (75) 95 04/29/17 19:59 95 Nasal Cannula 1.00 I/O 04/29/17 04/29/17 04/29/17 04/30/17 04/30/17 04/30/17 07:00 15:00 23:00 07:00 15:00 23:00 Intake Total 850 ml 1680 ml 2750 ml Balance 850 ml 1680 ml 2750 ml Intake Oral 850 ml 1680 ml 1600 ml IV Total 1150 ml # Voids 6 7 6 # Bowel Movements 0 1 0 Result Diagram: 04/30/17 1516 04/30/17 0540 Imaging Last Impressions Chest X-Ray 04/29/17 0000 Signed Impressions: Service Date/Time: Saturday, April 29, 2017 19:23 - CONCLUSION: The lungs are clear. Stable right lateral pleural thickening. Andrey Virk MD Myocardial Perfusion Scan Nuc Med 04/28/17 0600 Signed Impressions: Service Date/Time: Friday, April 28, 2017 10:45 - CONCLUSION: 1. 20-30%% redistribution in the high anterolateral wall. Findings could represent ischemia at the watershed area between the LAD and circumflex. 2. Adequate wall motion throughout with an estimated ejection fraction of 61%% RISK CATEGORY: Intermediate (1-3%% Annual Mortality Rate) Gonzalez Tolliver MD Head CT 04/26/17 0000 Signed Impressions: Service Date/Time: Wednesday, April 26, 2017 13:09 - CONCLUSION: 2 old areas of encephalomalacia on the right side. No evidence of acute hemorrhage, edema, mass, or mass effect. Keanu Monahan MD CT Angiography 04/26/17 0000 Signed Impressions: Service Date/Time: Wednesday, April 26, 2017 11:29 - CONCLUSION: Normal examination with no evidence of pulmonary embolism. Minimal atelectasis scarring both lung bases. Keanu Monahan MD Objective Remarks GENERAL: No distress. SKIN: There is an open ulcer with erythema at the base and surrounding the ulcer on the right upper back. HEAD: Atraumatic. Normocephalic. No temporal or scalp tenderness. EYES: Pupils equal round and reactive. Extraocular motions intact. No scleral icterus. No injection or drainage. ENT: Nose without bleeding, purulent drainage or septal hematoma. Throat without erythema, tonsillar hypertrophy or exudate. Uvula midline. Airway patent. NECK: Trachea midline. No JVD or lymphadenopathy. Supple, nontender, no meningeal signs. CARDIOVASCULAR: Normal rate. Regular rhythm. Mechanical click noted. RESPIRATORY: Clear to auscultation. Breath sounds equal bilaterally. No wheezes , rales, or rhonchi. GASTROINTESTINAL: Abdomen soft, non-tender, nondistended. No hepato-splenomegaly , or palpable masses. No guarding. MUSCULOSKELETAL: Extremities without clubbing, cyanosis, or edema. No joint tenderness, effusion, or edema noted. NEUROLOGICAL: Awake and alert. Cranial nerves II through XII intact. Motor and sensory grossly within normal limits. Five out of 5 muscle strength in all muscle groups. Normal speech. PSYCH: Slightly flattened affect. Medications and IVs Current Medications Medications (Trade) Dose Ordered Sig/Lele Route Start Time Stop Time Status Last Admin (NS Flush) 2 ml UNSCH PRN IV FLUSH 04/24/17 23:30 (NS Flush) 2 ml BID IV FLUSH 04/25/17 09:00 04/30/17 09:59 (Tylenol) 650 mg Q4H PRN PO 04/24/17 23:30 04/29/17 20:46 (Zofran Inj) 4 mg Q6H PRN IVP 04/24/17 23:30 04/29/17 01:40 (Narcan Inj) 0.4 mg UNSCH PRN IV PUSH 04/24/17 23:30 (Milk Of Magnesia Liq) 30 ml Q12H PRN PO 04/24/17 23:30 (Senokot) 17.2 mg Q12H PRN PO 04/24/17 23:30 (Dulcolax Supp) 10 mg DAILY PRN RECTAL 04/24/17 23:30 (Lactulose Liq) 30 ml DAILY PRN PO 04/24/17 23:30 (Lovenox Inj) 100 mg DAILY SQ 04/25/17 09:00 04/29/17 09:24 (Ferrous Sulfate Liq) 15 mg BID PO 04/25/17 09:00 04/30/17 09:59 (PROzac) 10 mg DAILY PO 04/25/17 09:00 04/30/17 09:58 (Toprol Xl) 12.5 mg BID PO 04/25/17 09:00 04/30/17 09:58 (Protonix) 40 mg DAILY PO 04/25/17 09:00 04/30/17 09:58 (Topamax) 25 mg BID PO 04/25/17 09:00 04/30/17 09:59 (Percocet 5-325 Mg) 1 tab Q6H PRN PO 04/25/17 01:00 04/29/17 20:46 (Aspirin Chew) 81 mg DAILY CHEW 04/25/17 15:00 Future Hold 04/30/17 09:59 (Percocet 10-325 Mg) 1 tab Q4H PRN PO 04/25/17 14:30 04/30/17 14:27 (Ativan) 1 mg TID PRN PO 04/26/17 12:30 04/29/17 20:46 (Duoneb Neb) 1 ampule Q2HR NEB PRN NEB 04/26/17 14:15 Pharmacy Profile Note 0 ml @ 0 mls/hr UNSCH OTHER 04/29/17 17:15 Levofloxacin/ Dextrose 150 ml @ 100 mls/hr Q24H IV 04/29/17 18:00 04/29/17 20:47 Vancomycin HCl 1000 mg/Sodium Chloride 250 ml @ 250 mls/hr Q8H IV 04/29/17 18:00 04/30/17 09:58 Miscellaneous Information SPECIFIC LAB TO BE KAYLEE... ONCE ONCE .XX 04/30/17 17:45 04/30/17 17:46 A/P Problem List: (1) Infected ulcer of skin ICD Code: L98.499 - Non-pressure chronic ulcer of skin of other sites with unspecified severity; L08.9 - Local infection of the skin and subcutaneous tissue, unspecified Status: Acute (2) H/O endocarditis ICD Code: Z86.79 - Personal history of other diseases of the circulatory system Status: Chronic (3) Systolic CHF, chronic ICD Code: I50.22 - Chronic systolic (congestive) heart failure Status: Chronic (4) History of heart valve replacement ICD Code: Z95.2 - Presence of prosthetic heart valve (5) Anxiety ICD Code: F41.9 - Anxiety disorder, unspecified Status: Acute (6) Epistaxis ICD Code: R04.0 - Epistaxis Plan: PT/PTT elevated. Platelets within normal range. I will order fibrinogen and d-dimer to eval for DIC. Hold Lovenox due to epistaxis. Resume IV heparin drip after epistaxis has resolved. Consult ENT. Monitor hemoglobin. Hemoglobin slowly trending down from 10.8-9.9-9.8-9.7. Transfuse as needed for hemoglobin less than 8 if active bleeding, symptomatic anemia, goal of hemoglobin more than 9. Assessment and Plan Sepsis/fever Unclear etiology. Chest x-ray negative for infiltrates, UA negative. Suspect cellulitis of the right upper back. ID consulted. As procedure recommendations. Continue IV vancomycin IV Levaquin. Monitor blood cultures Monitor white blood cell count Check 2D echocardiogram. Sepsis seems to be improving with improved tachycardia and resolved leukocytosis. Acute hypercarbic respiratory failure. Now resolved. As per medical records patient with CO2 retention which improved on repeat ABG. The patient was transitioned back from nonrebreather mask to nasal cannula. Etiology unclear. - wean O2 as tolerated. - standing and as needed nebs. - IS. - encourage ambulation. 04/29 much improved. Continue supplemental oxygen as tolerated. Acute chest pain Left-sided. Family history significant for CAD. EKG without acute ischemic changes. Trops peaked at 0.07. CTA negative. Cardiology consult appreciated. Stress test 04/28 showed: 20-30% redistribution in the high anterolateral wall; Findings could represent ischemia at the watershed area between the LAD and circumflex; Adequate wall motion throughout with an estimated ejection fraction of 61%. Discussed results with cardiology and radiology. Continue telemetry. 04/29 nuclear stress testing with 20-30% with distribution height anterolateral wall.. Findings could represent ischemia at the watershed area between the LAD and the circumflex. We will obtain chest x-ray since patient is having no fevers. Possible chest pain could be secondary to pneumonia versus skin lesion in the right upper back. 04/30 cardiology recommended medical management. Consider noncardiac chest pain etiologies. Back wound Reportedly started as reaction to Zosyn. Patient has been caring for it herself. Did not follow up outpatient with wound care. Wound nurse recommendations appreciated. Seems to be clean and without evidence of infection. Wound culture with normal heath. - wound care as recommended by wound nurse. -Initially started on IV vancomycin. - Pain control with a bowel regimen. Vancomycin discontinued. - follow blood cultures, NGTD. 04/01 I will consult infectious disease and start the patient IV outpatient antibiotic therapy given no fevers. 04/30 suspect cellulitis of the right upper back wound. Continue antibiotics as above. H/O endocarditis Recently treated at [facility] in [place] for bacteremia. - Repeat blood cultures. NGTD. - cardiology following. Systolic CHF, chronic No evidence of fluid overload at this time. Most recent echo in out system with normal EF. - Continue metoprolol. - Hold lisinopril and Aldactone due to low blood pressure. Resume when appropriate. History of heart valve replacement On Lovenox. States Coumadin did not work for her. 04/30 hold Lovenox due to recurrent epistaxis. Once epistaxis stops, will likely resume IV heparin drip. We will transition back to Lovenox once epistaxis has been evaluated by ENT. Migraines The patient stated that she has had migraines since she developed brain hematomas this past summer. - Pain control as needed. PPx: Lovenox Discharge Planning Continue to monitor the medical floor. Pending resolution of fevers and epistaxis. ENT consulted. Problem Qualifiers (1) Infected ulcer of skin: Qualified Codes: L98.491 - Non-pressure chronic ulcer of skin of other sites limited to breakdown of skin; L08.9 - Local infection of the skin and subcutaneous tissue, unspecified García Rg MD Apr 30, 2017 16:36
[2017-04-30] MEDS ORDERED: PHARMACY ORDERED LAB ONE (17:45)
[2017-04-30] MEDS: LEVOFLOXACIN 750 MG PREMIX INJ 150 ML IV SCH (18:37)
[2017-05-01] VITALS (9 sets, daily range): BP systolic 91–116; BP diastolic 50–57; PULSE 68–95; RESP 16–18; TEMP 99.1–100.4; O2SAT 93–95
[2017-05-01] MEDS: VANCOMYCIN 1,000 MG/NS 250 ML IV SCH ×6 (01:47→18:01)
[2017-05-01] MEDS: oxyCODONE/ACETAMINOPHEN 10 MG/325 MG TAB PO PRN ×4 (01:56→22:39)
[2017-05-01] MEDS: LORazepam 1 MG TAB PO PRN ×2 (02:27→22:39)
--- NOTE | 2017-05-01 07:24 | MB ---
cc: Lupillo Diego MD DATE OF CONSULT: CHIEF COMPLAINT: Epistaxis. HISTORY OF PRESENT ILLNESS: The patient is a pleasant 26-year-old female with multiple medical problems who was admitted for back infection who is on blood thinners with a history of a heart valve replacement who developed a nose bleed roughly 2-1/2 days ago. She notes that it has since resolved. Since late yesterday afternoon, she has not had any nose bleeding; however, she has cut off some blood products yesterday. This morning she is doing well without any nose bleeds at all. Her Lovenox is on hold currently, and she does have anemia. On examination, the patient is a pleasant female. Nasopharyngoscope revealed dried crusted blood on the right nasal cavity with no active bleeding. The left nasal cavity was within normal limits with the mucosa. There was no active blood in the posterior oropharynx. On flexible fiberoptic laryngoscopy, the airway was normal from the mouth to the larynx with no active bleeding and no airway compromise. ASSESSMENT: Epistaxis from the nasal septum, resolved. This is currently stable, but with her history of being on blood thinners and with the dried crusting, she is still at risk for repeat nose bleed. I recommend heavy antibiotic ointment into the right nasal cavity 3 times a day. I give the verbal order for the mupirocin. This was discussed with the patient. If the patient is able to tolerate another 24 hours of holding the Lovenox, then that would certainly be beneficial for the patient's nasal mucosa as it heals up with the mupirocin ointment; however, I will leave this to the judgment of the home team, as she has multiple medical problems to include the heart valve replacement, the back infection, the hepatitis, as well as other issues. Continue monitoring the hemoglobin, and I also recommend monitoring for other sources of bleeding if it trends down and the nose remains asymptomatic at this point. Lupillo Diego MD PCC/DL , 07:08 AM , 07:23 AM
[2017-05-01] MEDS: ENOXAPARIN SODIUM 100 MG/ML SYRINGE SQ SCH (09:00)
[2017-05-01] MEDS ORDERED: MUPIROCIN 2% CREAM 15 GM OTHER SCH (09:00)
[2017-05-01] MEDS: PANTOPRAZOLE SOD 40 MG DELAYED RELEASE TAB PO SCH (09:23)
[2017-05-01] MEDS: FLUoxetine HCL 10 MG CAP PO SCH (09:23)
[2017-05-01] MEDS: TOPIRAMATE 25 MG TAB PO SCH ×2 (09:23→22:39)
[2017-05-01] MEDS: METOPROLOL SUCCINATE 25 MG EXTENDED RELEASE TAB PO SCH ×2 (09:23→22:40)
[2017-05-01] MEDS: FERROUS SULFATE 15 MG/ML ELEMENTAL IRON 50 ML BTL PO SCH ×2 (09:23→22:42)
[2017-05-01] MEDS: SODIUM CHLORIDE 0.9% FLUSH 10 ML FLUSH IV FLUSH SCH ×2 (09:24→22:42)
--- NOTE | 2017-05-01 09:47 | ECHRPT ---
Indication: POSS SEPSIS, ENDOCARDITIS CONCLUSIONS Normal left ventricular size. Mild concentric left ventricular hypertrophy. The left ventricular systolic function is normal with an estimated ejection fraction of 50%.The righ t ventricle is mildly dilated. The left atrial size is moderate dilated. The right atrial size is moderately dilated. Unremarkable. The aortic root and proximal ascending aorta are not well visualized. Valve appears prosthetic - no history provided - suspect mechanical. Prosthetic mitral valve mean gradient is 8 mmHg. No MR, technically difficult. Aortic valve sclerosis is present. Trace to mild aortic valve regurgitation. Type of prosthesis/ history not available to reader. Mean gradient 8 mmHg suggests possible stenosi s. Difficult study. Trivial pulmonary valve regurgitation. BP: 105 / 60 HR: 88 Rhythm: Sinus MEASUREMENTS (Male / Female) Normal Values Technical Quality:Fair 2D ECHO LV Diastolic Diameter PLAX 5.3 cm 4.2 - 5.9 / 3.9 - 5.3 cm LV Systolic Diameter PLAX 3.8 cm IVS Diastolic Thickness 1.0 cm 0.6 - 1.0 / 0.6 - 0.9 cm LVPW Diastolic Thickness 1.0 cm 0.6 - 1.0 / 0.6 - 0.9 cm LV Relative Wall Thickness 0.4 RV Internal Dim ED PLAX 3.5 cm LVOT Diameter 1.7 cm Aortic Root Diameter 2.6 cm LA Systolic Diameter LX 4.9 cm 3.0 - 4.0 / 2.7 - 3.8 cm M-MODE AV Cusp Separation MM 1.9 cm DOPPLER AV Peak Velocity 175.0 cm/s AV Peak Gradient 12.3 mmHg AV Mean Gradient 6.0 mmHg AV Velocity Time Integral 32.7 cm LVOT Peak Velocity 80.2 cm/s LVOT Peak Gradient 2.6 mmHg LVOT Velocity Time Integral 13.5 cm AV Area Cont Eq vti 0.9 cm AV Area Cont Eq pk 1.0 cm MV Peak Velocity 227.5 cm/s MV Peak Gradient 20.7 mmHg MV Mean Velocity 127.5 cm/s MV Mean Gradient 8.0 mmHg Mitral E Point Velocity 231.5 cm/s TV Peak Velocity 219.0 cm/s PV Peak Velocity 61.7 cm/s PV Peak Gradient 1.5 mmHg FINDINGS LEFT VENTRICLE Normal left ventricular size. Mild concentric left ventricular hypertrophy. The left ventricular systolic function is normal with an estimated ejection fraction of 50%. RIGHT VENTRICLE The right ventricle is mildly dilated. LEFT ATRIUM The left atrial size is moderate dilated. RIGHT ATRIUM The right atrial size is moderately dilated. ATRIAL SEPTUM Unremarkable. AORTA The aortic root and proximal ascending aorta are not well visualized. MITRAL VALVE Valve appears prosthetic - no history provided - suspect mechanical. Prosthetic mitral valve mean gradient is 8 mmHg. No MR, technically difficult. AORTIC VALVE Aortic valve sclerosis is present. Trace to mild aortic valve regurgitation. TRICUSPID VALVE Type of prosthesis/ history not available to reader. Mean gradient 8 mmHg suggests possible stenosi s. Difficult study. PULMONARY VALVE Trivial pulmonary valve regurgitation. VESSELS The inferior vena cava is normal in size. PERICARDIUM No pericardial effusion. OTHER FINDINGS Study is inadequate to exclude vegetations Manish Huddleston MD (Electronically Signed) Final Date:01 May 2017 09:46
[2017-05-01] MEDS ORDERED: HEPARIN-D5W 25,000 U/250 ML 250 ML IV PRN (13:15)
[2017-05-01 13:57] LABS: HEMATOCRIT 28.1 % (35.0-46.0); HEMOGLOBIN 9.6 GM/DL (11.6-15.3); MEAN CELL VOLUME 95.1 FL (80.0-100.0); MEAN CORPUSCULAR HEMOGLOBIN 32.4 PG (27.0-34.0); MEAN PLATELET VOLUME 7.9 FL (7.0-11.0); PLATELET COUNT 285 TH/MM3 (150-450); RED BLOOD COUNT 2.95 MIL/MM3 (4.00-5.30); RED CELL DISTRIBUTION WIDTH 14.3 % (11.6-17.2)
[2017-05-01 14:08] LABS: INTERNATIONAL NORMALIZED RATIO 1.2 RATIO; PROTHROMBIN TIME - PATIENT 11.7 SEC (9.8-11.6)
--- NOTE | 2017-05-01 15:10 | HHI.PR ---
Subjective Remarks Epistaxis has resolved. The patient denies chest pain or shortness of breath. The patient denies diarrhea. Objective Vitals Vital Signs Date Time Temp Pulse Resp B/P (MAP) Pulse Ox O2 Delivery O2 Flow Rate FiO2 05/01/17 12:25 99.1 68 18 102/50 (67) 95 05/01/17 10:53 74 05/01/17 10:48 94 Room Air 05/01/17 08:06 99.6 77 18 91/55 (67) 94 05/01/17 05:00 99.2 80 16 116/55 (75) 93 05/01/17 04:59 80 05/01/17 01:57 95 110/57 (74) 05/01/17 00:41 100.4 88 18 98/51 (67) 94 04/30/17 23:53 95 Nasal Cannula 2.00 04/30/17 20:59 94 Nasal Cannula 2.00 04/30/17 20:00 98.1 81 16 97/54 (68) 94 04/30/17 16:03 98.5 78 18 103/57 (72) 96 I/O 04/30/17 04/30/17 04/30/17 05/01/17 05/01/17 05/01/17 07:00 15:00 23:00 07:00 15:00 23:00 Intake Total 2750 ml 250 ml Balance 2750 ml 250 ml Intake Oral 1600 ml IV Total 1150 ml 250 ml # Voids 6 # Bowel Movements 0 Result Diagram: 05/01/17 1336 04/30/17 0540 Imaging Last Impressions Chest X-Ray 04/29/17 0000 Signed Impressions: Service Date/Time: Saturday, April 29, 2017 19:23 - CONCLUSION: The lungs are clear. Stable right lateral pleural thickening. Andrey Virk MD Myocardial Perfusion Scan Nuc Med 04/28/17 0600 Signed Impressions: Service Date/Time: Friday, April 28, 2017 10:45 - CONCLUSION: 1. 20-30%% redistribution in the high anterolateral wall. Findings could represent ischemia at the watershed area between the LAD and circumflex. 2. Adequate wall motion throughout with an estimated ejection fraction of 61%% RISK CATEGORY: Intermediate (1-3%% Annual Mortality Rate) Gonzalez Tolliver MD Head CT 04/26/17 0000 Signed Impressions: Service Date/Time: Wednesday, April 26, 2017 13:09 - CONCLUSION: 2 old areas of encephalomalacia on the right side. No evidence of acute hemorrhage, edema, mass, or mass effect. Keanu Monahan MD CT Angiography 04/26/17 0000 Signed Impressions: Service Date/Time: Wednesday, April 26, 2017 11:29 - CONCLUSION: Normal examination with no evidence of pulmonary embolism. Minimal atelectasis scarring both lung bases. Keanu Monahan MD Objective Remarks GENERAL: No distress. SKIN: There is an open ulcer with erythema at the base and surrounding the ulcer on the right upper back. HEAD: Atraumatic. Normocephalic. No temporal or scalp tenderness. EYES: Pupils equal round and reactive. Extraocular motions intact. No scleral icterus. No injection or drainage. ENT: Nose without bleeding, purulent drainage or septal hematoma. Throat without erythema, tonsillar hypertrophy or exudate. Uvula midline. Airway patent. NECK: Trachea midline. No JVD or lymphadenopathy. Supple, nontender, no meningeal signs. CARDIOVASCULAR: Normal rate. Regular rhythm. Mechanical click noted. RESPIRATORY: Clear to auscultation. Breath sounds equal bilaterally. No wheezes , rales, or rhonchi. GASTROINTESTINAL: Abdomen soft, non-tender, nondistended. No hepato-splenomegaly , or palpable masses. No guarding. MUSCULOSKELETAL: Extremities without clubbing, cyanosis, or edema. No joint tenderness, effusion, or edema noted. NEUROLOGICAL: Awake and alert. Cranial nerves II through XII intact. Motor and sensory grossly within normal limits. Five out of 5 muscle strength in all muscle groups. Normal speech. PSYCH: Slightly flattened affect. Medications and IVs Current Medications Medications (Trade) Dose Ordered Sig/Lele Route Start Time Stop Time Status Last Admin (NS Flush) 2 ml UNSCH PRN IV FLUSH 04/24/17 23:30 (NS Flush) 2 ml BID IV FLUSH 04/25/17 09:00 05/01/17 09:24 (Tylenol) 650 mg Q4H PRN PO 04/24/17 23:30 04/29/17 20:46 (Zofran Inj) 4 mg Q6H PRN IVP 04/24/17 23:30 04/29/17 01:40 (Narcan Inj) 0.4 mg UNSCH PRN IV PUSH 04/24/17 23:30 (Milk Of Magnesia Liq) 30 ml Q12H PRN PO 04/24/17 23:30 (Senokot) 17.2 mg Q12H PRN PO 04/24/17 23:30 (Dulcolax Supp) 10 mg DAILY PRN RECTAL 04/24/17 23:30 (Lactulose Liq) 30 ml DAILY PRN PO 04/24/17 23:30 (Lovenox Inj) 100 mg DAILY SQ 04/25/17 09:00 04/29/17 09:24 (Ferrous Sulfate Liq) 15 mg BID PO 04/25/17 09:00 05/01/17 09:23 (PROzac) 10 mg DAILY PO 04/25/17 09:00 05/01/17 09:23 (Toprol Xl) 12.5 mg BID PO 04/25/17 09:00 05/01/17 09:23 (Protonix) 40 mg DAILY PO 04/25/17 09:00 05/01/17 09:23 (Topamax) 25 mg BID PO 04/25/17 09:00 05/01/17 09:23 (Percocet 5-325 Mg) 1 tab Q6H PRN PO 04/25/17 01:00 04/29/17 20:46 (Aspirin Chew) 81 mg DAILY CHEW 04/25/17 15:00 Future Hold 04/30/17 09:59 (Percocet 10-325 Mg) 1 tab Q4H PRN PO 04/25/17 14:30 05/01/17 09:25 (Ativan) 1 mg TID PRN PO 04/26/17 12:30 05/01/17 02:27 (Duoneb Neb) 1 ampule Q2HR NEB PRN NEB 04/26/17 14:15 Pharmacy Profile Note 0 ml @ 0 mls/hr UNSCH OTHER 04/29/17 17:15 Levofloxacin/ Dextrose 150 ml @ 100 mls/hr Q24H IV 04/29/17 18:00 04/30/17 18:37 Vancomycin HCl 1000 mg/Sodium Chloride 250 ml @ 250 mls/hr Q8H IV 04/29/17 18:00 05/01/17 09:23 Miscellaneous Information SPECIFIC LAB TO BE DRAWN:VANCO TROUGH DATE TO BE DRImani.. ONCE ONCE .XX 05/01/17 17:45 05/01/17 17:46 (Bactroban Nasal 2% Oint) 1 applic TID OTHER 05/01/17 13:00 Heparin Sodium/ Dextrose 250 ml @ 9 mls/hr TITRATE PRN IV 05/01/17 13:15 A/P Problem List: (1) Infected ulcer of skin ICD Code: L98.499 - Non-pressure chronic ulcer of skin of other sites with unspecified severity; L08.9 - Local infection of the skin and subcutaneous tissue, unspecified Status: Acute (2) H/O endocarditis ICD Code: Z86.79 - Personal history of other diseases of the circulatory system Status: Chronic (3) Systolic CHF, chronic ICD Code: I50.22 - Chronic systolic (congestive) heart failure Status: Chronic (4) History of heart valve replacement ICD Code: Z95.2 - Presence of prosthetic heart valve (5) Anxiety ICD Code: F41.9 - Anxiety disorder, unspecified Status: Acute (6) Epistaxis ICD Code: R04.0 - Epistaxis Plan: PT/PTT elevated. Platelets within normal range. Lovenox was held due to epistaxis. Resume IV heparin drip after epistaxis has resolved. Consult ENT. Monitor hemoglobin. Hemoglobin slowly trending down from 10.8-9.9-9.8-9.7. Transfuse as needed for hemoglobin less than 8 if active bleeding, symptomatic anemia, goal of hemoglobin more than 9. 3/8 appreciate ENT consultation, recommendations noted. At this time I will start the patient on IV heparin drip since the patient is a high risk for thrombus formation given mechanical valve. Heparin drip will be continued 24 hours and if there is no bleeding then the patient will likely be safe to be switched to Lovenox subcutaneously. I will order fibrinogen, LDH and haptoglobin to rule out DIC. Assessment and Plan Sepsis/fever Unclear etiology. Chest x-ray negative for infiltrates, UA negative. Suspect cellulitis of the right upper back. ID consulted. As procedure recommendations. Continue IV vancomycin IV Levaquin. Monitor blood cultures Monitor white blood cell count Check 2D echocardiogram. Sepsis seems to be improving with improved tachycardia and resolved leukocytosis. 05/01 continue IV antibiotics as per ID. The patient still having low-grade fevers, however these are improving. Blood cultures negative 2. Acute hypercarbic respiratory failure. Now resolved. As per medical records patient with CO2 retention which improved on repeat ABG. The patient was transitioned back from nonrebreather mask to nasal cannula. Etiology unclear. - wean O2 as tolerated. - standing and as needed nebs. - IS. - encourage ambulation. 04/29 much improved. Continue supplemental oxygen as tolerated. Acute chest pain Left-sided. Family history significant for CAD. EKG without acute ischemic changes. Trops peaked at 0.07. CTA negative. Cardiology consult appreciated. Stress test 04/28 showed: 20-30% redistribution in the high anterolateral wall; Findings could represent ischemia at the watershed area between the LAD and circumflex; Adequate wall motion throughout with an estimated ejection fraction of 61%. Discussed results with cardiology and radiology. Continue telemetry. 04/29 nuclear stress testing with 20-30% with distribution height anterolateral wall.. Findings could represent ischemia at the watershed area between the LAD and the circumflex. We will obtain chest x-ray since patient is having no fevers. Possible chest pain could be secondary to pneumonia versus skin lesion in the right upper back. 04/30 cardiology recommended medical management. Consider noncardiac chest pain etiologies. Back wound Reportedly started as reaction to Zosyn. Patient has been caring for it herself. Did not follow up outpatient with wound care. Wound nurse recommendations appreciated. Seems to be clean and without evidence of infection. Wound culture with normal heath. - wound care as recommended by wound nurse. -Initially started on IV vancomycin. - Pain control with a bowel regimen. Vancomycin discontinued. - follow blood cultures, NGTD. 04/01 I will consult infectious disease and start the patient IV outpatient antibiotic therapy given no fevers. Suspect cellulitis of the right upper back wound. Continue antibiotics as above. H/O endocarditis Recently treated at [facility] in [place] for bacteremia. - Repeat blood cultures. NGTD. - cardiology following. Systolic CHF, chronic No evidence of fluid overload at this time. Most recent echo in out system with normal EF. - Continue metoprolol. - Hold lisinopril and Aldactone due to low blood pressure. Resume when appropriate. History of heart valve replacement On Lovenox. States Coumadin did not work for her. 04/30 hold Lovenox due to recurrent epistaxis. Once epistaxis stops, will likely resume IV heparin drip. We will transition back to Lovenox once epistaxis has been evaluated by ENT. 05/01 start Iv heparin drip - if no further epistaxis the patient may be placed back on Lovenox. Migraines The patient stated that she has had migraines since she developed brain hematomas this past summer. - Pain control as needed. PPx: Lovenox Discharge Planning Continue to monitor the medical floor. Pending ID clearance and resolution of fevers. Problem Qualifiers (1) Infected ulcer of skin: Qualified Codes: L98.491 - Non-pressure chronic ulcer of skin of other sites limited to breakdown of skin; L08.9 - Local infection of the skin and subcutaneous tissue, unspecified García Rg MD May 01, 2017 15:10
[2017-05-01] MEDS: MUPIROCIN 2% OINT 1 APPLIC/GM SYR OTHER SCH ×2 (15:25→18:01)
[2017-05-01] MEDS ORDERED: PHARMACY ORDERED LAB ONE (17:45)
[2017-05-01] MEDS: LEVOFLOXACIN 750 MG PREMIX INJ 150 ML IV SCH (18:00)
--- NOTE | 2017-05-01 18:28 | HHI.IDPN ---
Note Infectious Disease Note Patient continues to have bleeding via the nose. She has low-grade fever. She notes pain in the right upper back and also pain at the nose. The echocardiogram noted. No mention of valve vegetation. Blood cultures have no growth. 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 The patient denies the use of IV drugs for years now. ALLERGIES: PIPERACILLIN/TAZOBACTAM, NAPROXEN, MORPHINE, GABAPENTIN, CODEINE, FISH-CONTAINING PRODUCTS. MEDICATIONS: Current Medications Medications (Trade) Dose Ordered Sig/Lele Route PRN Reason Start Time Stop Time Status Last Admin Dose Admin Sodium Chloride (NS Flush) 2 ml UNSCH PRN IV FLUSH FLUSH AFTER USING IV ACCESS 04/24/17 23:30 Sodium Chloride (NS Flush) 2 ml BID IV FLUSH 04/25/17 09:00 05/01/17 09:24 Acetaminophen (Tylenol) 650 mg Q4H PRN PO TEMP > 100.4 04/24/17 23:30 04/29/17 20:46 Ondansetron HCl (Zofran Inj) 4 mg Q6H PRN IVP NAUSEA OR VOMITING 04/24/17 23:30 04/29/17 01:40 Naloxone HCl (Narcan Inj) 0.4 mg UNSCH PRN IV PUSH SEE LABEL COMMENTS 04/24/17 23:30 Magnesium Hydroxide (Milk Of Magnesia Liq) 30 ml Q12H PRN PO Mild constipation 04/24/17 23:30 Sennosides (Senokot) 17.2 mg Q12H PRN PO Moderate constipation 04/24/17 23:30 Bisacodyl (Dulcolax Supp) 10 mg DAILY PRN RECTAL SEVERE CONSITIPATION 04/24/17 23:30 Lactulose (Lactulose Liq) 30 ml DAILY PRN PO SEVERE CONSITIPATION 04/24/17 23:30 Enoxaparin Sodium (Lovenox Inj) 100 mg DAILY SQ 04/25/17 09:00 04/29/17 09:24 Ferrous Sulfate (Ferrous Sulfate Liq) 15 mg BID PO 04/25/17 09:00 05/01/17 09:23 Fluoxetine HCl (PROzac) 10 mg DAILY PO 04/25/17 09:00 05/01/17 09:23 Metoprolol Succinate (Toprol Xl) 12.5 mg BID PO 04/25/17 09:00 05/01/17 09:23 Pantoprazole Sodium (Protonix) 40 mg DAILY PO 04/25/17 09:00 05/01/17 09:23 Topiramate (Topamax) 25 mg BID PO 04/25/17 09:00 05/01/17 09:23 Oxycodone/ Acetaminophen (Percocet 5-325 Mg) 1 tab Q6H PRN PO PAIN 3-5 04/25/17 01:00 04/29/17 20:46 Aspirin (Aspirin Chew) 81 mg DAILY CHEW 04/25/17 15:00 Future Hold 04/30/17 09:59 Oxycodone/ Acetaminophen (Percocet 10-325 Mg) 1 tab Q4H PRN PO pain 6-10 04/25/17 14:30 05/01/17 18:00 Lorazepam (Ativan) 1 mg TID PRN PO ANXIETY AND/OR AGITATION 04/26/17 12:30 05/01/17 02:27 Albuterol/ Ipratropium (Duoneb Neb) 1 ampule Q2HR NEB PRN NEB dyspnea 04/26/17 14:15 Pharmacy Profile Note 0 ml @ 0 mls/hr UNSCH OTHER 04/29/17 17:15 Levofloxacin/ Dextrose 150 ml @ 100 mls/hr Q24H IV 04/29/17 18:00 05/01/17 18:00 Vancomycin HCl 1000 mg/Sodium Chloride 250 ml @ 250 mls/hr Q8H IV 04/29/17 18:00 05/01/17 18:01 Mupirocin (Bactroban Nasal 2% Oint) 1 applic TID OTHER 05/01/17 13:00 05/01/17 18:01 Heparin Sodium/ Dextrose 250 ml @ 9 mls/hr TITRATE PRN IV Coagulation Management 05/01/17 13:15 05/01/17 15:22 OBJECTIVE: Vital Signs Date Time Temp Pulse Resp B/P (MAP) Pulse Ox O2 Delivery O2 Flow Rate FiO2 05/01/17 17:18 99.6 77 18 94/55 (68) 95 05/01/17 12:25 99.1 68 18 102/50 (67) 95 05/01/17 10:53 74 05/01/17 10:48 94 Room Air 05/01/17 08:06 99.6 77 18 91/55 (67) 94 05/01/17 05:00 99.2 80 16 116/55 (75) 93 05/01/17 04:59 80 05/01/17 01:57 95 110/57 (74) 05/01/17 00:41 100.4 88 18 98/51 (67) 94 04/30/17 23:53 95 Nasal Cannula 2.00 04/30/17 20:59 94 Nasal Cannula 2.00 04/30/17 20:00 98.1 81 16 97/54 (68) 94 Laboratory Tests Test 04/29/17 18:40 04/30/17 05:40 04/30/17 15:16 05/01/17 13:36 White Blood Count 11.0 TH/MM3 13.5 TH/MM3 8.6 TH/MM3 9.0 TH/MM3 Red Blood Count 3.43 MIL/MM3 3.22 MIL/MM3 3.08 MIL/MM3 2.95 MIL/MM3 Hemoglobin 10.8 GM/DL 9.8 GM/DL 9.7 GM/DL 9.6 GM/DL Hematocrit 32.5 % 29.5 % 29.1 % 28.1 % Mean Corpuscular Volume 94.7 FL 93.6 FL 94.4 FL 95.1 FL Mean Corpuscular Hemoglobin 31.4 PG 30.8 PG 31.3 PG 32.4 PG Mean Corpuscular Hemoglobin Concent 33.1 % 32.9 % 33.2 % 34.0 % Red Cell Distribution Width 14.6 % 14.2 % 14.5 % 14.3 % Platelet Count 357 TH/MM3 293 TH/MM3 283 TH/MM3 285 TH/MM3 Mean Platelet Volume 7.9 FL 7.7 FL 7.7 FL 7.9 FL Neutrophils (%) (Auto) 75.3 % 82.9 % Lymphocytes (%) (Auto) 12.7 % 11.2 % Monocytes (%) (Auto) 6.8 % 4.8 % Eosinophils (%) (Auto) 4.7 % 0.7 % Basophils (%) (Auto) 0.5 % 0.4 % Neutrophils # (Auto) 8.3 TH/MM3 11.2 TH/MM3 Lymphocytes # (Auto) 1.4 TH/MM3 1.5 TH/MM3 Monocytes # (Auto) 0.7 TH/MM3 0.7 TH/MM3 Eosinophils # (Auto) 0.5 TH/MM3 0.1 TH/MM3 Basophils # (Auto) 0.1 TH/MM3 0.0 TH/MM3 CBC Comment DIFF FINAL DIFF FINAL Differential Comment Test 05/01/17 16:43 Haptoglobin 14 MG/DL Laboratory Tests Test 04/29/17 18:40 04/30/17 05:40 05/01/17 16:43 Blood Urea Nitrogen 11 MG/DL 10 MG/DL Creatinine 0.91 MG/DL 0.83 MG/DL Random Glucose 86 MG/DL 84 MG/DL Total Protein 7.8 GM/DL 7.0 GM/DL Albumin 3.9 GM/DL 3.4 GM/DL Calcium Level 8.6 MG/DL 8.0 MG/DL Phosphorus Level 2.5 MG/DL 2.9 MG/DL Magnesium Level 1.9 MG/DL 2.0 MG/DL Alkaline Phosphatase 171 U/L 150 U/L Aspartate Amino Transf (AST/SGOT) 19 U/L 16 U/L Alanine Aminotransferase (ALT/SGPT) 30 U/L 29 U/L Total Bilirubin 1.1 MG/DL 0.9 MG/DL Sodium Level 135 MEQ/L 138 MEQ/L Potassium Level 4.0 MEQ/L 3.6 MEQ/L Chloride Level 102 MEQ/L 106 MEQ/L Carbon Dioxide Level 24.1 MEQ/L 22.9 MEQ/L Anion Gap 9 MEQ/L 9 MEQ/L Estimat Glomerular Filtration Rate 74 ML/MIN 82 ML/MIN Lactic Acid Level 0.8 mmol/L 0.6 mmol/L Lactate Dehydrogenase 299 U/L Microbiology Date/Time Source Procedure Growth Status 04/29/17 18:40 Blood Peripheral Aerobic Blood Culture - Preliminary NO GROWTH IN 2 DAYS Resulted 04/29/17 18:40 Blood Peripheral Anaerobic Blood Culture - Preliminary NO GROWTH IN 2 DAYS Resulted 04/29/17 18:35 Blood Peripheral Aerobic Blood Culture - Preliminary NO GROWTH IN 2 DAYS Resulted 04/29/17 18:35 Blood Peripheral Anaerobic Blood Culture - Preliminary NO GROWTH IN 2 DAYS Resulted IMAGING: Chest X-Ray 04/29/17 0000 Signed Impressions: Service Date/Time: Saturday, April 29, 2017 19:23 - CONCLUSION: The lungs are clear. Stable right lateral pleural thickening. Andrey Virk MD Myocardial Perfusion Scan Nuc Med 04/28/17 0600 Signed Impressions: Service Date/Time: Friday, April 28, 2017 10:45 - CONCLUSION: 1. 20-30%% redistribution in the high anterolateral wall. Findings could represent ischemia at the watershed area between the LAD and circumflex. 2. Adequate wall motion throughout with an estimated ejection fraction of 61%% RISK CATEGORY: Intermediate (1-3%% Annual Mortality Rate) Gonzalez Tolliver MD Head CT 04/26/17 0000 Signed Impressions: Service Date/Time: Wednesday, April 26, 2017 13:09 - CONCLUSION: 2 old areas of encephalomalacia on the right side. No evidence of acute hemorrhage, edema, mass, or mass effect. Keanu Monahan MD CT Angiography 04/26/17 0000 Signed Impressions: Service Date/Time: Wednesday, April 26, 2017 11:29 - CONCLUSION: Normal examination with no evidence of pulmonary embolism. Minimal atelectasis scarring both lung bases. Keanu Monahan MD PHYSICAL EXAMINATION: GENERAL: no acute distress. She has current bleeding through the nose. She is awake, alert and oriented. HEENT: The head is atraumatic. Extraocular movements grossly intact. Pupils reactive to light. No icterus. Nose reveals epistaxis. Oropharynx, moist mucosa without lesions. NECK: Supple without adenopathy. LUNGS: Clear breath sounds. HEART: II/ systolic ejection murmur at the upper right sternal border. Also, III/ systolic ejection murmur at the upper left sternal border. No rubs or gallops. ABDOMEN: Bowel sounds present, soft, no tenderness appreciated. BACK: There is swelling at the right upper back and an area with superficial ulceration in 3 different locations at the right upper back. These are next to each other. There is erythema and the back has raised area of swelling over which the ulcer is located. EXTREMITIES: No clubbing or cyanosis or edema. SKIN: No diffuse rash. NEUROLOGIC: No gross focal findings. PSYCHIATRIC: Calm and cooperative. IMPRESSION: 1. Fever and leukocytosis in patient who has history of endocarditis of mitral and tricuspid valve. Temperature improved and white blood cell count is down to normal. 2. Probable sepsis. Blood cultures are negative. 3. Chest pain on admission. 4. Right upper back wound from prior allergic reaction to Zosyn, nonhealing. 5. Epistaxis. She has been receiving blood thinners. RECOMMENDATIONS: 1. Continue vancomycin. 2. Continue Levaquin. 3. Monitor blood cultures. 4. Monitor temperature. Wound care has given recommendations for treatment of the wound on the right upper back. The wound does not look acutely infected, but there is some erythema. There is no drainage to suggest ongoing infection. Previous culture on 04/24 yielded heavy growth of normal skin heath. Since she is clinically stable and blood cultures are negative I would not proceed with further workup for endocarditis unless latest blood cultures turn positive. Sunny Rowley MD May 01, 2017 18:28
[2017-05-02] VITALS (10 sets, daily range): BP systolic 92–105; BP diastolic 50–71; PULSE 69–80; RESP 16–18; TEMP 97.3–99.6; O2SAT 93–98
[2017-05-02] MEDS: VANCOMYCIN 1,000 MG/NS 250 ML IV SCH ×6 (02:41→17:15)
[2017-05-02] MEDS: oxyCODONE/ACETAMINOPHEN 10 MG/325 MG TAB PO PRN ×3 (07:07→22:55)
[2017-05-02] MEDS ORDERED: PHARMACY ORDERED LAB ONE (09:45)
[2017-05-02] MEDS: FERROUS SULFATE 15 MG/ML ELEMENTAL IRON 50 ML BTL PO SCH ×2 (10:25→22:07)
[2017-05-02] MEDS: PANTOPRAZOLE SOD 40 MG DELAYED RELEASE TAB PO SCH (10:26)
[2017-05-02] MEDS: SODIUM CHLORIDE 0.9% FLUSH 10 ML FLUSH IV FLUSH SCH ×2 (10:26→22:06)
[2017-05-02] MEDS: MUPIROCIN 2% OINT 1 APPLIC/GM SYR OTHER SCH ×3 (10:26→17:14)
[2017-05-02] MEDS: TOPIRAMATE 25 MG TAB PO SCH ×2 (10:26→22:06)
[2017-05-02] MEDS: FLUoxetine HCL 10 MG CAP PO SCH (10:26)
[2017-05-02] MEDS: METOPROLOL SUCCINATE 25 MG EXTENDED RELEASE TAB PO SCH ×2 (10:26→22:07)
[2017-05-02] MEDS: ENOXAPARIN SODIUM 100 MG/ML SYRINGE SQ SCH (10:27)
--- NOTE | 2017-05-02 12:12 | HHI.PR ---
Subjective Remarks STILL HAVING SOME INTERMITTENT NASAL BLEEDING AND NOW POSSIBLE RASH BY EYES AND RIGHT SIDE OF FACE-ONLY NEW RX IS MUPIROCIN DW PATIENT AND RN HOLD OF ON HEPARIN DRIP AND COUMADIN HOPEFULLY START TOMORROW IF NO MORE NASAL BLEEDING Objective Vitals Vital Signs Date Time Temp Pulse Resp B/P (MAP) Pulse Ox O2 Delivery O2 Flow Rate FiO2 05/02/17 11:59 95 Room Air 05/02/17 08:00 98.4 73 18 95/51 (66) 95 05/02/17 07:27 71 05/02/17 04:00 98.9 72 16 97/55 (69) 94 05/02/17 00:00 99.2 77 18 92/53 (66) 96 05/02/17 00:00 78 05/01/17 22:36 Room Air 05/01/17 20:00 85 05/01/17 20:00 100.0 86 18 105/55 (72) 94 05/01/17 17:18 99.6 77 18 94/55 (68) 95 05/01/17 12:25 99.1 68 18 102/50 (67) 95 I/O 05/01/17 05/01/17 05/01/17 05/02/17 05/02/17 05/02/17 06:59 14:59 22:59 06:59 14:59 22:59 Intake Total 480 ml Balance 480 ml Intake Oral 480 ml # Voids 6 4 Result Diagram: 05/01/17 1336 04/30/17 0540 Other Results Laboratory Tests Test 04/29/17 18:40 04/29/17 19:00 04/30/17 05:40 04/30/17 15:16 White Blood Count 11.0 TH/MM3 13.5 TH/MM3 8.6 TH/MM3 Red Blood Count 3.43 MIL/MM3 3.22 MIL/MM3 3.08 MIL/MM3 Hemoglobin 10.8 GM/DL 9.8 GM/DL 9.7 GM/DL Hematocrit 32.5 % 29.5 % 29.1 % Mean Corpuscular Volume 94.7 FL 93.6 FL 94.4 FL Mean Corpuscular Hemoglobin 31.4 PG 30.8 PG 31.3 PG Mean Corpuscular Hemoglobin Concent 33.1 % 32.9 % 33.2 % Red Cell Distribution Width 14.6 % 14.2 % 14.5 % Platelet Count 357 TH/MM3 293 TH/MM3 283 TH/MM3 Mean Platelet Volume 7.9 FL 7.7 FL 7.7 FL Neutrophils (%) (Auto) 75.3 % 82.9 % Lymphocytes (%) (Auto) 12.7 % 11.2 % Monocytes (%) (Auto) 6.8 % 4.8 % Eosinophils (%) (Auto) 4.7 % 0.7 % Basophils (%) (Auto) 0.5 % 0.4 % Neutrophils # (Auto) 8.3 TH/MM3 11.2 TH/MM3 Lymphocytes # (Auto) 1.4 TH/MM3 1.5 TH/MM3 Monocytes # (Auto) 0.7 TH/MM3 0.7 TH/MM3 Eosinophils # (Auto) 0.5 TH/MM3 0.1 TH/MM3 Basophils # (Auto) 0.1 TH/MM3 0.0 TH/MM3 CBC Comment DIFF FINAL DIFF FINAL Differential Comment Blood Urea Nitrogen 11 MG/DL 10 MG/DL Creatinine 0.91 MG/DL 0.83 MG/DL Random Glucose 86 MG/DL 84 MG/DL Total Protein 7.8 GM/DL 7.0 GM/DL Albumin 3.9 GM/DL 3.4 GM/DL Calcium Level 8.6 MG/DL 8.0 MG/DL Phosphorus Level 2.5 MG/DL 2.9 MG/DL Magnesium Level 1.9 MG/DL 2.0 MG/DL Alkaline Phosphatase 171 U/L 150 U/L Aspartate Amino Transf (AST/SGOT) 19 U/L 16 U/L Alanine Aminotransferase (ALT/SGPT) 30 U/L 29 U/L Total Bilirubin 1.1 MG/DL 0.9 MG/DL Sodium Level 135 MEQ/L 138 MEQ/L Potassium Level 4.0 MEQ/L 3.6 MEQ/L Chloride Level 102 MEQ/L 106 MEQ/L Carbon Dioxide Level 24.1 MEQ/L 22.9 MEQ/L Anion Gap 9 MEQ/L 9 MEQ/L Estimat Glomerular Filtration Rate 74 ML/MIN 82 ML/MIN Lactic Acid Level 0.8 mmol/L 0.6 mmol/L Urine Color YELLOW Urine Turbidity CLEAR Urine pH 8.5 Urine Specific [place] 1.014 Urine Protein TRACE mg/dL Urine Glucose (UA) NEG mg/dL Urine Ketones NEG mg/dL Urine Occult Blood SMALL Urine Nitrite NEG Urine Bilirubin NEG Urine Urobilinogen 2.0 MG/DL Urine Leukocyte Esterase NEG Urine WBC LESS THAN 1 /hpf Urine Squamous Epithelial Cells 6 /hpf Urine Hyaline Casts 1 /lpf Urine Mucus FEW /lpf Microscopic Urinalysis Comment CULT NOT INDICATED Prothrombin Time 12.3 SEC Prothromb Time International Ratio 1.2 RATIO Activated Partial Thromboplast Time 31.0 SEC Test 04/30/17 18:32 05/01/17 13:36 05/01/17 16:43 05/01/17 20:48 Vancomycin Level Trough 13.5 MCG/ML 18.1 MCG/ML White Blood Count 9.0 TH/MM3 Red Blood Count 2.95 MIL/MM3 Hemoglobin 9.6 GM/DL Hematocrit 28.1 % Mean Corpuscular Volume 95.1 FL Mean Corpuscular Hemoglobin 32.4 PG Mean Corpuscular Hemoglobin Concent 34.0 % Red Cell Distribution Width 14.3 % Platelet Count 285 TH/MM3 Mean Platelet Volume 7.9 FL Prothrombin Time 11.7 SEC Prothromb Time International Ratio 1.2 RATIO Activated Partial Thromboplast Time 29.1 SEC 28.8 SEC Haptoglobin 14 MG/DL Fibrinogen 375 mg/dL Lactate Dehydrogenase 299 U/L Test 05/02/17 10:20 Vancomycin Level Trough 16.3 MCG/ML Imaging Last Impressions Chest X-Ray 04/29/17 0000 Signed Impressions: Service Date/Time: Saturday, April 29, 2017 19:23 - CONCLUSION: The lungs are clear. Stable right lateral pleural thickening. Andrey Virk MD Myocardial Perfusion Scan Nuc Med 04/28/17 0600 Signed Impressions: Service Date/Time: Friday, April 28, 2017 10:45 - CONCLUSION: 1. 20-30%% redistribution in the high anterolateral wall. Findings could represent ischemia at the watershed area between the LAD and circumflex. 2. Adequate wall motion throughout with an estimated ejection fraction of 61%% RISK CATEGORY: Intermediate (1-3%% Annual Mortality Rate) Gonzalez Tolliver MD Head CT 04/26/17 0000 Signed Impressions: Service Date/Time: Wednesday, April 26, 2017 13:09 - CONCLUSION: 2 old areas of encephalomalacia on the right side. No evidence of acute hemorrhage, edema, mass, or mass effect. Keanu Monahan MD CT Angiography 04/26/17 0000 Signed Impressions: Service Date/Time: Wednesday, April 26, 2017 11:29 - CONCLUSION: Normal examination with no evidence of pulmonary embolism. Minimal atelectasis scarring both lung bases. Keanu Monahan MD Objective Remarks GENERAL: IN No ACUTE distress. NO ACTIVE NASAL BLEEDING TODAY SKIN: There is an open ulcer with erythema at the base and surrounding the ulcer on the right upper back. HEAD: Atraumatic. Normocephalic. No temporal or scalp tenderness. EYES: Pupils equal round and reactive. Extraocular motions intact. No scleral icterus. No injection or drainage. ENT: Nose without bleeding, purulent drainage or septal hematoma. Throat without erythema, tonsillar hypertrophy or exudate. Uvula midline. Airway patent. NECK: Trachea midline. No JVD or lymphadenopathy. Supple, nontender, no meningeal signs. CARDIOVASCULAR: Normal rate. Regular rhythm. Mechanical click noted. S1, S2 NO S3 OR S4 NO HEAVE OR THRILL RESPIRATORY: Clear to auscultation. Breath sounds equal bilaterally. No wheezes , rales, or rhonchi. GASTROINTESTINAL: Abdomen soft, non-tender, nondistended. No hepato-splenomegaly , or palpable masses. No guarding. MUSCULOSKELETAL: Extremities without clubbing, cyanosis, or edema. No joint tenderness, effusion, or edema noted. NEUROLOGICAL: Awake and alert. Cranial nerves II through XII intact. Motor and sensory grossly within normal limits. Five out of 5 muscle strength in all muscle groups. Normal speech. PSYCH: Slightly flattened affect. Insight and judgment is good. Mood and behavior is appropriate Medications and IVs Current Medications Vancomycin HCl 1000 mg/Sodium Chloride 250 ml @ 250 mls/hr ONCE ONCE IV Last administered on 04/24/17at 21:04; Start 04/24/17 at 19:30; Stop 04/24/17 at 20:29; Status DC Ketorolac Tromethamine (Toradol Inj) 30 mg ONCE ONCE IV PUSH Last administered on 04/24/17at 21:05; Start 04/24/17 at 20:15; Stop 04/24/17 at 20:16; Status DC Famotidine (Pepcid Inj) 20 mg ONCE IV PUSH Last administered on 04/24/17at 21:06 ; Start 04/24/17 at 20:15; Stop 04/28/17 at 16:04; Status DC Ondansetron HCl (Zofran Inj) 4 mg ONCE ONCE IV PUSH Last administered on at 20:15; Start 04/24/17 at 20:15; Stop 04/24/17 at 20:16; Status DC Sodium Chloride 1,000 ml @ 999 mls/hr BOLUS ONCE IV Last administered on at 21:05; Start 04/24/17 at 20:15; Stop 04/24/17 at 21:15; Status DC Sodium Chloride (NS Flush) 2 ml UNSCH PRN IV FLUSH FLUSH AFTER USING IV ACCESS ; Start 04/24/17 at 23:30 Sodium Chloride (NS Flush) 2 ml BID IV FLUSH Last administered on 05/02/17at 10: 26; Start 04/25/17 at 09:00 Acetaminophen (Tylenol) 650 mg Q4H PRN PO TEMP > 100.4 Last administered on 04/29at 20:46; Start 04/24/17 at 23:30 Ondansetron HCl (Zofran Inj) 4 mg Q6H PRN IVP NAUSEA OR VOMITING Last administered on 04/29/17at 01:40; Start 04/24/17 at 23:30 Naloxone HCl (Narcan Inj) 0.4 mg UNSCH PRN IV PUSH SEE LABEL COMMENTS; Start at 23:30 Magnesium Hydroxide (Milk Of Magnesia Liq) 30 ml Q12H PRN PO Mild constipation ; Start 04/24/17 at 23:30 Sennosides (Senokot) 17.2 mg Q12H PRN PO Moderate constipation; Start 04/24/17 at 23:30 Bisacodyl (Dulcolax Supp) 10 mg DAILY PRN RECTAL SEVERE CONSITIPATION; Start at 23:30 Lactulose (Lactulose Liq) 30 ml DAILY PRN PO SEVERE CONSITIPATION; Start at 23:30 Enoxaparin Sodium (Lovenox Inj) 100 mg DAILY SQ Last administered on 04/29/17at 09:24; Start 04/25/17 at 09:00 Ferrous Sulfate (Ferrous Sulfate Liq) 15 mg BID PO Last administered on at 10:25; Start 04/25/17 at 09:00 Fluoxetine HCl (PROzac) 10 mg DAILY PO Last administered on 05/02/17 10:26; Start 04/25/17 at 09:00 Metoprolol Succinate (Toprol Xl) 12.5 mg BID PO Last administered on 05/02/17 10:26; Start 04/25/17 at 09:00 Pantoprazole Sodium (Protonix) 40 mg DAILY PO Last administered on 05/02/17 10: 26; Start 04/25/17 at 09:00 Topiramate (Topamax) 25 mg BID PO Last administered on 05/02/17 10:26; Start at 09:00 Oxycodone/ Acetaminophen (Percocet 5-325 Mg) 1 tab Q6H PRN PO PAIN 3-5 Last administered on 04/29/17 20:46; Start 04/25/17 at 01:00 Vancomycin HCl 1000 mg/Sodium Chloride 250 ml @ 250 mls/hr Q12H IV Last administered on 04/27/17 10:20; Start 04/25/17 at 09:00; Stop 04/27/17 at 11:55; Status DC Pharmacy Profile Note 0 ml @ 0 mls/hr UNSCH OTHER ; Start 04/25/17 at 01:00; Stop 04/27/17 at 11:55; Status DC Aspirin (Aspirin Chew) 81 mg DAILY CHEW Last administered on 04/30/17 09:59; Start 04/25/17 at 15:00; Status Future Hold Lorazepam (Ativan) 1 mg BID PRN PO ANXIETY AND/OR AGITATION Last administered on 04/26/17 08:24; Start 04/25/17 at 12:00; Stop 04/26/17 at 12:24; Status DC Oxycodone/ Acetaminophen (Percocet 10-325 Mg) 1 tab Q4H PRN PO pain 6-10 Last administered on 05/02/17 07:07; Start 04/25/17 at 14:30 Hydromorphone HCl (Dilaudid Pf Inj) 0.5 mg Q4H PRN IV PUSH breakthrough pain Last administered on 04/27/17 10:16; Start 04/25/17 at 14:30; Stop 04/27/17 at 11: 53; Status DC Miscellaneous Information SPECIFIC LAB TO BE DRAWN:DARI TROUGH DATE TO BE ONCE ONCE .XX Last administered on 04/26/17at 10:10; Start 04/26/17 at 08: 45; Stop 04/26/17 at 08:46; Status DC Ferrous Sulfate (Ferrous Sulfate Liq) 15 mg BID PO ; Start 04/25/17 at 23:45; Status Cancel Nitroglycerin (Nitrostat Sl) 0.4 mg STK-MED ONCE SL ; Start 04/26/17 at 10:59; Stop 04/26/17 at 11:00; Status DC Iohexol (Omnipaque 350 Inj) 74 ml STK-MED ONCE IVCONTRAST Last administered on 04/26/17at 11:32; Start 04/26/17 at 11:32; Stop 04/26/17 at 11:33; Status DC Lorazepam (Ativan) 1 mg TID PRN PO ANXIETY AND/OR AGITATION Last administered on 05/01/17at 22:39; Start 04/26/17 at 12:30 Albuterol/ Ipratropium (Duoneb Neb) 1 ampule Q2HR NEB PRN NEB dyspnea; Start at 14:15 Albuterol/ Ipratropium (Duoneb Neb) 1 ampule Q6HR WHILE AWAKE NEB NEB Last administered on 04/29/17at 19:57; Start 04/26/17 at 14:15; Stop 04/30/17 at 14:14; Status DC Regadenoson (Lexiscan Inj) 0.4 mg STK-MED ONCE .ROUTE Last administered on at 11:17; Start 04/28/17 at 11:17; Stop 04/28/17 at 11:18; Status DC Vancomycin HCl 1000 mg/Sodium Chloride 250 ml @ 250 mls/hr Q12H IV ; Start 04/29 at 17:15; Stop 04/29/17 at 17:54; Status DC Pharmacy Profile Note 0 ml @ 0 mls/hr UNSCH OTHER ; Start 04/29/17 at 17:15 Levofloxacin/ Dextrose 150 ml @ 100 mls/hr Q24H IV Last administered on at 18:00; Start 04/29/17 at 18:00 Vancomycin HCl 1000 mg/Sodium Chloride 250 ml @ 250 mls/hr Q8H IV Last administered on 05/02/17 10:27; Start 04/29/17 at 18:00 Sodium Chloride 1,000 ml @ 999 mls/hr BOLUS ONCE IV Last administered on 22:27; Start 04/29/17 at 21:45; Stop 04/29/17 at 22:45; Status DC Oxymetazoline HCl (Afrin 0.05% [place]) 2 spray ONCE ONCE NASAL Last administered on 04/30/17 05:48; Start 04/30/17 at 05:30; Stop 04/30/17 at 05:31; Status DC Miscellaneous Information SPECIFIC LAB TO BE KAYLEE... ONCE ONCE .XX Last administered on 04/30/17 17:45; Start 04/30/17 at 17:45; Stop 04/30/17 at 17:46; Status DC Miscellaneous Information SPECIFIC LAB TO BE DRAWN:VANCO TROUGH DATE TO BE DR... ONCE ONCE .XX Last administered on 05/01/17 17:45; Start 05/01/17 at 17: 45; Stop 05/01/17 at 17:46; Status DC Mupirocin (Bactroban 2% Cream) 1 applic TID OTHER ; Start 05/01/17 at 09:00; Stop 05/01/17 at 09:52; Status DC Mupirocin (Bactroban Nasal 2% Oint) 1 applic TID OTHER Last administered on 05/02 10:26; Start 05/01/17 at 13:00 Heparin Sodium/ Dextrose 250 ml @ 9 mls/hr TITRATE PRN IV Coagulation Management Last administered on 05/01/17at 15:22; Start 05/01/17 at 13:15; Status Future Hold Miscellaneous Information SPECIFIC LAB TO BE DRAWN:VANCO TROUGH DATE TO BE DR..Imani ONCE ONCE .XX Last administered on 05/02/17 10:26; Start 05/02/17 at 09: 45; Stop 05/02/17 at 09:46; Status DC A/P Problem List: (1) Infected ulcer of skin ICD Code: L98.499 - Non-pressure chronic ulcer of skin of other sites with unspecified severity; L08.9 - Local infection of the skin and subcutaneous tissue, unspecified Status: Acute (2) H/O endocarditis ICD Code: Z86.79 - Personal history of other diseases of the circulatory system Status: Chronic (3) Systolic CHF, chronic ICD Code: I50.22 - Chronic systolic (congestive) heart failure Status: Chronic (4) History of heart valve replacement ICD Code: Z95.2 - Presence of prosthetic heart valve (5) Anxiety ICD Code: F41.9 - Anxiety disorder, unspecified Status: Acute (6) Epistaxis ICD Code: R04.0 - Epistaxis Plan: PT/PTT elevated. Platelets within normal range. Lovenox was held due to epistaxis. Resume IV heparin drip after epistaxis has resolved. Consult ENT. Monitor hemoglobin. Hemoglobin slowly trending down from 10.8-9.9-9.8-9.7. Transfuse as needed for hemoglobin less than 8 if active bleeding, symptomatic anemia, goal of hemoglobin more than 9. 05/01 appreciate ENT consultation, recommendations noted. At this time I will start the patient on IV heparin drip since the patient is a high risk for thrombus formation given mechanical valve. Heparin drip will be continued 24 hours and if there is no bleeding then the patient will likely be safe to be switched to Lovenox subcutaneously. I will order fibrinogen, LDH and haptoglobin to rule out DIC. SEEN BY ENT WANTS TO HOLD ANTICOAGULATION ONE MORE DAY HOPEFULLY RESTART ON 3-10 WITH HEPARIN DRIP Assessment and Plan Assessment and Plan Sepsis/fever Unclear etiology. Chest x-ray negative for infiltrates, UA negative. Suspect cellulitis of the right upper back. ID consulted. As procedure recommendations. Continue IV vancomycin IV Levaquin. Monitor blood cultures Monitor white blood cell count Check 2D echocardiogram. Sepsis seems to be improving with improved tachycardia and resolved leukocytosis. 05/01 continue IV antibiotics as per ID. The patient still having low-grade fevers, however these are improving. Blood cultures negative 2. Acute hypercarbic respiratory failure. Now resolved. As per medical records patient with CO2 retention which improved on repeat ABG. The patient was transitioned back from nonrebreather mask to nasal cannula. Etiology unclear. - wean O2 as tolerated. - standing and as needed nebs. - IS. - encourage ambulation. 04/29 much improved. Continue supplemental oxygen as tolerated. Acute chest pain Left-sided. Family history significant for CAD. EKG without acute ischemic changes. Trops peaked at 0.07. CTA negative. Cardiology consult appreciated. Stress test 04/28 showed: 20-30% redistribution in the high anterolateral wall; Findings could represent ischemia at the watershed area between the LAD and circumflex; Adequate wall motion throughout with an estimated ejection fraction of 61%. Discussed results with cardiology and radiology. Continue telemetry. 04/29 nuclear stress testing with 20-30% with distribution height anterolateral wall.. Findings could represent ischemia at the watershed area between the LAD and the circumflex. We will obtain chest x-ray since patient is having no fevers. Possible chest pain could be secondary to pneumonia versus skin lesion in the right upper back. 04/30 cardiology recommended medical management. Consider noncardiac chest pain etiologies. Back wound Reportedly started as reaction to Zosyn. Patient has been caring for it herself. Did not follow up outpatient with wound care. Wound nurse recommendations appreciated. Seems to be clean and without evidence of infection. Wound culture with normal heath. - wound care as recommended by wound nurse. -Initially started on IV vancomycin. - Pain control with a bowel regimen. Vancomycin discontinued. - follow blood cultures, NGTD. 04/01 I will consult infectious disease and start the patient IV outpatient antibiotic therapy given no fevers. Suspect cellulitis of the right upper back wound. Continue antibiotics as above. H/O endocarditis Recently treated at [facility] in [place] for bacteremia. - Repeat blood cultures. NGTD. - cardiology following. Systolic CHF, chronic No evidence of fluid overload at this time. Most recent echo in out system with normal EF. - Continue metoprolol. - Hold lisinopril and Aldactone due to low blood pressure. Resume when appropriate. History of heart valve replacement On Lovenox. States Coumadin did not work for her. 04/30 hold Lovenox due to recurrent epistaxis. Once epistaxis stops, will likely resume IV heparin drip. We will transition back to Lovenox once epistaxis has been evaluated by ENT. 05/01 start Iv heparin drip - if no further epistaxis the patient may be placed back on Lovenox.-- ON HOLD DUE TO NASAL BLEEDING Migraines The patient stated that she has had migraines since she developed brain hematomas this past summer. - Pain control as needed. PPx: ON HOLD AT THIS TIME Discharge Planning PENDING ID CLEARANCE AND BACK ON COUMADIN FOR MECHANICAL VALVE Problem Qualifiers (1) Infected ulcer of skin: Qualified Codes: L98.491 - Non-pressure chronic ulcer of skin of other sites limited to breakdown of skin; L08.9 - Local infection of the skin and subcutaneous tissue, unspecified Kj Burton DO May 02, 2017 12:12
[2017-05-02 13:50] LABS: HEMATOCRIT 27.8 % (35.0-46.0); HEMOGLOBIN 9.5 GM/DL (11.6-15.3); MEAN CELL VOLUME 93.5 FL (80.0-100.0); MEAN CORPUSCULAR HEMOGLOBIN 31.7 PG (27.0-34.0); MEAN PLATELET VOLUME 7.8 FL (7.0-11.0); PLATELET COUNT 317 TH/MM3 (150-450); RED BLOOD COUNT 2.98 MIL/MM3 (4.00-5.30); RED CELL DISTRIBUTION WIDTH 14.1 % (11.6-17.2); WHITE BLOOD COUNT 8.2 TH/MM3 (4.0-11.0)
[2017-05-02] MEDS: LEVOFLOXACIN 750 MG PREMIX INJ 150 ML IV SCH (17:15)
--- NOTE | 2017-05-02 18:19 | HHI.IDPN ---
Note Infectious Disease Note Patient complains of swelling at the nose and eyelids. Afebrile. She notes pain in the right upper back. says she feels cold. Blood cultures have no growth. 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 The patient denies the use of IV drugs for years now. ALLERGIES: PIPERACILLIN/TAZOBACTAM, NAPROXEN, MORPHINE, GABAPENTIN, CODEINE, FISH-CONTAINING PRODUCTS. MEDICATIONS: Current Medications Medications (Trade) Dose Ordered Sig/Lele Route PRN Reason Start Time Stop Time Status Last Admin Dose Admin Sodium Chloride (NS Flush) 2 ml UNSCH PRN IV FLUSH FLUSH AFTER USING IV ACCESS 04/24/17 23:30 Sodium Chloride (NS Flush) 2 ml BID IV FLUSH 04/25/17 09:00 05/02/17 10:26 Acetaminophen (Tylenol) 650 mg Q4H PRN PO TEMP > 100.4 04/24/17 23:30 04/29/17 20:46 Ondansetron HCl (Zofran Inj) 4 mg Q6H PRN IVP NAUSEA OR VOMITING 04/24/17 23:30 04/29/17 01:40 Naloxone HCl (Narcan Inj) 0.4 mg UNSCH PRN IV PUSH SEE LABEL COMMENTS 04/24/17 23:30 Magnesium Hydroxide (Milk Of Magnesia Liq) 30 ml Q12H PRN PO Mild constipation 04/24/17 23:30 Sennosides (Senokot) 17.2 mg Q12H PRN PO Moderate constipation 04/24/17 23:30 Bisacodyl (Dulcolax Supp) 10 mg DAILY PRN RECTAL SEVERE CONSITIPATION 04/24/17 23:30 Lactulose (Lactulose Liq) 30 ml DAILY PRN PO SEVERE CONSITIPATION 04/24/17 23:30 Enoxaparin Sodium (Lovenox Inj) 100 mg DAILY SQ 04/25/17 09:00 04/29/17 09:24 Ferrous Sulfate (Ferrous Sulfate Liq) 15 mg BID PO 04/25/17 09:00 05/02/17 10:25 Fluoxetine HCl (PROzac) 10 mg DAILY PO 04/25/17 09:00 05/02/17 10:26 Metoprolol Succinate (Toprol Xl) 12.5 mg BID PO 04/25/17 09:00 05/02/17 10:26 Pantoprazole Sodium (Protonix) 40 mg DAILY PO 04/25/17 09:00 05/02/17 10:26 Topiramate (Topamax) 25 mg BID PO 04/25/17 09:00 05/02/17 10:26 Oxycodone/ Acetaminophen (Percocet 5-325 Mg) 1 tab Q6H PRN PO PAIN 3-5 04/25/17 01:00 04/29/17 20:46 Aspirin (Aspirin Chew) 81 mg DAILY CHEW 04/25/17 15:00 Future Hold 04/30/17 09:59 Oxycodone/ Acetaminophen (Percocet 10-325 Mg) 1 tab Q4H PRN PO pain 6-10 04/25/17 14:30 05/02/17 17:14 Lorazepam (Ativan) 1 mg TID PRN PO ANXIETY AND/OR AGITATION 04/26/17 12:30 05/01/17 22:39 Albuterol/ Ipratropium (Duoneb Neb) 1 ampule Q2HR NEB PRN NEB dyspnea 04/26/17 14:15 Pharmacy Profile Note 0 ml @ 0 mls/hr UNSCH OTHER 04/29/17 17:15 Levofloxacin/ Dextrose 150 ml @ 100 mls/hr Q24H IV 04/29/17 18:00 05/02/17 17:15 Vancomycin HCl 1000 mg/Sodium Chloride 250 ml @ 250 mls/hr Q8H IV 04/29/17 18:00 05/02/17 17:15 Mupirocin (Bactroban Nasal 2% Oint) 1 applic TID OTHER 05/01/17 13:00 05/02/17 17:14 Heparin Sodium/ Dextrose 250 ml @ 9 mls/hr TITRATE PRN IV Coagulation Management 05/01/17 13:15 Future Hold 05/01/17 15:22 OBJECTIVE: Vital Signs Date Time Temp Pulse Resp B/P (MAP) Pulse Ox O2 Delivery O2 Flow Rate FiO2 05/02/17 16:00 98.6 73 18 95/50 (65) 95 3/9/18 12:00 98.0 71 18 94/53 (67) 96 05/02/17 11:59 95 Room Air 05/02/17 08:00 98.4 73 18 95/51 (66) 95 05/02/17 07:27 71 05/02/17 04:00 98.9 72 16 97/55 (69) 94 05/02/17 00:00 99.2 77 18 92/53 (66) 96 05/02/17 00:00 78 05/01/17 22:36 Room Air 05/01/17 20:00 85 05/01/17 20:00 100.0 86 18 105/55 (72) 94 Laboratory Tests Test 05/01/17 13:36 05/01/17 16:43 05/02/17 13:30 White Blood Count 9.0 TH/MM3 8.2 TH/MM3 Red Blood Count 2.95 MIL/MM3 2.98 MIL/MM3 Hemoglobin 9.6 GM/DL 9.5 GM/DL Hematocrit 28.1 % 27.8 % Mean Corpuscular Volume 95.1 FL 93.5 FL Mean Corpuscular Hemoglobin 32.4 PG 31.7 PG Mean Corpuscular Hemoglobin Concent 34.0 % 34.0 % Red Cell Distribution Width 14.3 % 14.1 % Platelet Count 285 TH/MM3 317 TH/MM3 Mean Platelet Volume 7.9 FL 7.8 FL Haptoglobin 14 MG/DL Laboratory Tests Test 05/01/17 16:43 Lactate Dehydrogenase 299 U/L Microbiology Date/Time Source Procedure Growth Status 04/29/17 18:40 Blood Peripheral Aerobic Blood Culture - Preliminary NO GROWTH IN 3 DAYS Resulted 04/29/17 18:40 Blood Peripheral Anaerobic Blood Culture - Preliminary NO GROWTH IN 3 DAYS Resulted 04/29/17 18:35 Blood Peripheral Aerobic Blood Culture - Preliminary NO GROWTH IN 3 DAYS Resulted 04/29/17 18:35 Blood Peripheral Anaerobic Blood Culture - Preliminary NO GROWTH IN 3 DAYS Resulted IMAGING: Chest X-Ray 04/29/17 0000 Signed Impressions: Service Date/Time: Saturday, April 29, 2017 19:23 - CONCLUSION: The lungs are clear. Stable right lateral pleural thickening. Andrey Virk MD Myocardial Perfusion Scan Nuc Med 04/28/17 0600 Signed Impressions: Service Date/Time: Friday, April 28, 2017 10:45 - CONCLUSION: 1. 20-30%% redistribution in the high anterolateral wall. Findings could represent ischemia at the watershed area between the LAD and circumflex. 2. Adequate wall motion throughout with an estimated ejection fraction of 61%% RISK CATEGORY: Intermediate (1-3%% Annual Mortality Rate) Gonzalez Tolliver MD Head CT 04/26/17 0000 Signed Impressions: Service Date/Time: Wednesday, April 26, 2017 13:09 - CONCLUSION: 2 old areas of encephalomalacia on the right side. No evidence of acute hemorrhage, edema, mass, or mass effect. Keanu Monahan MD CT Angiography 04/26/17 0000 Signed Impressions: Service Date/Time: Wednesday, April 26, 2017 11:29 - CONCLUSION: Normal examination with no evidence of pulmonary embolism. Minimal atelectasis scarring both lung bases. Keanu Monahan MD PHYSICAL EXAMINATION: GENERAL: No acute distress. No current nose bleeding. HEENT: The head is atraumatic. Mild swelling of the eyelids. No significant erythema. Extraocular movements grossly intact. Pupils reactive to light. No icterus. Mild erythema around the nose labial folds. Oropharynx, moist mucosa without lesions. NECK: Supple without adenopathy. LUNGS: Clear breath sounds. HEART: II/ systolic ejection murmur at the upper right sternal border. Also, III/ systolic ejection murmur at the upper left sternal border. No rubs or gallops. ABDOMEN: Bowel sounds present, soft, no tenderness appreciated. BACK: There is swelling at the right upper back and an area with superficial ulceration in 3 different locations at the right upper back. These are next to each other. Erythema of the back is improved. EXTREMITIES: No clubbing or cyanosis or edema. SKIN: No diffuse rash. NEUROLOGIC: No gross focal findings. PSYCHIATRIC: Calm and cooperative. IMPRESSION: 1. Fever and leukocytosis in patient who has history of endocarditis of mitral and tricuspid valve. Temperature improved and white blood cell count is down to normal. Blood cultures remain negative. 2. Probable sepsis. Blood cultures are negative. 3. Chest pain on admission. But that she still gets some chest pain. 4. Right upper back wound from prior allergic reaction to Zosyn, nonhealing. Could be a result of being on the blood thinners. 5. Epistaxis. Bleeding has stopped. RECOMMENDATIONS: 1. Continue vancomycin. 2. Stop Levaquin. 3. Monitor blood cultures. 4. Monitor temperature. She is clinically stable and blood cultures are negative I do not think it is necessary to treat for endocarditis at this time. If she develops fever over the next couple of days the blood cultures should be repeated and would proceed with TAO. Sunny Rowley MD May 02, 2017 18:19
[2017-05-02] MEDS: LORazepam 1 MG TAB PO PRN (22:55)
[2017-05-03] VITALS (10 sets, daily range): BP systolic 98–139; BP diastolic 50–60; PULSE 64–79; RESP 18; TEMP 98.2–99.3; O2SAT 94–98
[2017-05-03] MEDS: VANCOMYCIN 1,000 MG/NS 250 ML IV SCH ×6 (02:02→18:06)
[2017-05-03] MEDS: oxyCODONE/ACETAMINOPHEN 10 MG/325 MG TAB PO PRN ×2 (06:16→20:40)
[2017-05-03 08:04] LABS: AUTOMATED NEUTROPHIL # 4.1 TH/MM3 (1.8-7.7); BASOPHIL # 0.1 TH/MM3 (0-0.2); BASOPHIL % 1.2 % (0.0-2.0); EOSINOPHIL # 0.7 TH/MM3 (0-0.4); EOSINOPHIL % 7.7 % (0.0-4.0); HEMATOCRIT 26.3 % (35.0-46.0); HEMOGLOBIN 8.7 GM/DL (11.6-15.3); LYMPH % 32.7 % (9.0-44.0); LYMPHOCYTE # 2.8 TH/MM3 (1.0-4.8); MEAN CELL VOLUME 93.6 FL (80.0-100.0); MEAN CORPUSCULAR HEMOGLOBIN 30.9 PG (27.0-34.0); MEAN CORPUSCULAR HGB CONC 33.1 % (32.0-36.0); MEAN PLATELET VOLUME 8.1 FL (7.0-11.0); MONO % 9.9 % (0.0-8.0); MONOCYTE # 0.8 TH/MM3 (0-0.9); NEUT % 48.5 % (16.0-70.0); PLATELET COUNT 330 TH/MM3 (150-450); RED BLOOD COUNT 2.81 MIL/MM3 (4.00-5.30); RED CELL DISTRIBUTION WIDTH 13.9 % (11.6-17.2); WHITE BLOOD COUNT 8.5 TH/MM3 (4.0-11.0)
[2017-05-03 08:10] LABS: INTERNATIONAL NORMALIZED RATIO 1.1 RATIO; PROTHROMBIN TIME - PATIENT 11.4 SEC (9.8-11.6)
[2017-05-03 08:25] LABS: ALT (GPT) 16 U/L (10-53); AST (GOT) 12 U/L (15-37); BICARBONATE 22.8 MEQ/L (21.0-32.0); BLOOD UREA NITROGEN 13 MG/DL (7-18); CALCIUM 8.3 MG/DL (8.5-10.1); CHLORIDE 108 MEQ/L (98-107); CREATININE 0.97 MG/DL (0.50-1.00); GLOMERULAR FILTRATION RATE 69 ML/MIN (>89); GLUCOSE,RANDOM 92 MG/DL (74-106); MAGNESIUM 2.1 MG/DL (1.5-2.5); PHOSPHORUS 3.8 MG/DL (2.5-4.9); SODIUM (NA) 139 MEQ/L (136-145)
[2017-05-03 08:34] LABS: ALKALINE PHOSPHATASE 118 U/L (45-117); FREE T4 1.13 NG/DL (0.76-1.46); TOTAL BILIRUBIN ADULT 0.6 MG/DL (0.2-1.0); TOTAL PROTEIN 6.7 GM/DL (6.4-8.2)
[2017-05-03] MEDS: ENOXAPARIN SODIUM 100 MG/ML SYRINGE SQ SCH (09:00)
[2017-05-03] MEDS: METOPROLOL SUCCINATE 25 MG EXTENDED RELEASE TAB PO SCH ×3 (09:00→20:40)
[2017-05-03] MEDS: PANTOPRAZOLE SOD 40 MG DELAYED RELEASE TAB PO SCH (10:14)
[2017-05-03] MEDS: FLUoxetine HCL 10 MG CAP PO SCH (10:14)
[2017-05-03] MEDS: TOPIRAMATE 25 MG TAB PO SCH ×2 (10:15→20:40)
[2017-05-03] MEDS: MUPIROCIN 2% OINT 1 APPLIC/GM SYR OTHER SCH ×3 (10:19→18:00)
[2017-05-03] MEDS: FERROUS SULFATE 15 MG/ML ELEMENTAL IRON 50 ML BTL PO SCH ×2 (10:19→20:36)
[2017-05-03] MEDS: SODIUM CHLORIDE 0.9% FLUSH 10 ML FLUSH IV FLUSH SCH ×2 (10:35→20:37)
--- NOTE | 2017-05-03 11:44 | HHI.PR ---
Subjective Remarks 3-9 STILL HAVING SOME INTERMITTENT NASAL BLEEDING AND NOW POSSIBLE RASH BY EYES AND RIGHT SIDE OF FACE-ONLY NEW RX IS MUPIROCIN DW PATIENT AND RN HOLD OF ON HEPARIN DRIP AND COUMADIN HOPEFULLY START TOMORROW IF NO MORE NASAL BLEEDING 3-10 WANTS PAIN MEDICATIONS WILL RESTART HEPARIN AND COUMADIN WANTS BENADRYL DW RN AND PT DAILY PT INR DW PATIENT AND RN AND CM NO MORE BLEEDING Objective Vitals Vital Signs Date Time Temp Pulse Resp B/P (MAP) Pulse Ox O2 Delivery O2 Flow Rate FiO2 05/03/17 11:29 Room Air 05/03/17 08:04 98.2 68 18 103/53 (70) 97 05/03/17 04:00 67 05/03/17 04:00 98.7 67 18 103/50 (67) 96 05/03/17 00:00 99.3 79 18 111/55 (73) 96 05/03/17 00:00 74 05/02/17 23:00 80 05/02/17 21:56 98 Room Air 05/02/17 20:20 97.3 69 18 104/71 (82) 93 05/02/17 20:00 99.6 75 18 105/52 (69) 98 05/02/17 18:23 73 05/02/17 16:00 98.6 73 18 95/50 (65) 95 05/02/17 12:00 98.0 71 18 94/53 (67) 96 05/02/17 11:59 95 Room Air I/O 05/02/17 05/02/17 05/02/17 05/03/17 05/03/17 05/03/17 07:00 15:00 23:00 07:00 15:00 23:00 Intake Total 960 ml Balance 960 ml Intake Oral 960 ml # Voids 4 6 4 # Bowel Movements 0 0 Result Diagram: 05/03/17 0615 05/03/17 0615 Other Results Laboratory Tests Test 04/30/17 15:16 04/30/17 18:32 05/01/17 13:36 05/01/17 16:43 White Blood Count 8.6 TH/MM3 9.0 TH/MM3 Red Blood Count 3.08 MIL/MM3 2.95 MIL/MM3 Hemoglobin 9.7 GM/DL 9.6 GM/DL Hematocrit 29.1 % 28.1 % Mean Corpuscular Volume 94.4 FL 95.1 FL Mean Corpuscular Hemoglobin 31.3 PG 32.4 PG Mean Corpuscular Hemoglobin Concent 33.2 % 34.0 % Red Cell Distribution Width 14.5 % 14.3 % Platelet Count 283 TH/MM3 285 TH/MM3 Mean Platelet Volume 7.7 FL 7.9 FL Prothrombin Time 12.3 SEC 11.7 SEC Prothromb Time International Ratio 1.2 RATIO 1.2 RATIO Activated Partial Thromboplast Time 31.0 SEC 29.1 SEC Vancomycin Level Trough 13.5 MCG/ML 18.1 MCG/ML Haptoglobin 14 MG/DL Fibrinogen 375 mg/dL Lactate Dehydrogenase 299 U/L Test 05/01/17 20:48 05/02/17 10:20 05/02/17 13:30 05/03/17 06:15 Activated Partial Thromboplast Time 28.8 SEC Vancomycin Level Trough 16.3 MCG/ML White Blood Count 8.2 TH/MM3 8.5 TH/MM3 Red Blood Count 2.98 MIL/MM3 2.81 MIL/MM3 Hemoglobin 9.5 GM/DL 8.7 GM/DL Hematocrit 27.8 % 26.3 % Mean Corpuscular Volume 93.5 FL 93.6 FL Mean Corpuscular Hemoglobin 31.7 PG 30.9 PG Mean Corpuscular Hemoglobin Concent 34.0 % 33.1 % Red Cell Distribution Width 14.1 % 13.9 % Platelet Count 317 TH/MM3 330 TH/MM3 Mean Platelet Volume 7.8 FL 8.1 FL Neutrophils (%) (Auto) 48.5 % Lymphocytes (%) (Auto) 32.7 % Monocytes (%) (Auto) 9.9 % Eosinophils (%) (Auto) 7.7 % Basophils (%) (Auto) 1.2 % Neutrophils # (Auto) 4.1 TH/MM3 Lymphocytes # (Auto) 2.8 TH/MM3 Monocytes # (Auto) 0.8 TH/MM3 Eosinophils # (Auto) 0.7 TH/MM3 Basophils # (Auto) 0.1 TH/MM3 CBC Comment DIFF FINAL Differential Comment Prothrombin Time 11.4 SEC Prothromb Time International Ratio 1.1 RATIO Blood Urea Nitrogen 13 MG/DL Creatinine 0.97 MG/DL Random Glucose 92 MG/DL Total Protein 6.7 GM/DL Albumin 3.0 GM/DL Calcium Level 8.3 MG/DL Phosphorus Level 3.8 MG/DL Magnesium Level 2.1 MG/DL Alkaline Phosphatase 118 U/L Aspartate Amino Transf (AST/SGOT) 12 U/L Alanine Aminotransferase (ALT/SGPT) 16 U/L Total Bilirubin 0.6 MG/DL Sodium Level 139 MEQ/L Potassium Level 3.8 MEQ/L Chloride Level 108 MEQ/L Carbon Dioxide Level 22.8 MEQ/L Anion Gap 8 MEQ/L Estimat Glomerular Filtration Rate 69 ML/MIN Free Thyroxine 1.13 NG/DL Thyroid Stimulating Hormone 3rd Gen 1.230 uIU/ML Imaging Last Impressions Chest X-Ray 04/29/17 0000 Signed Impressions: Service Date/Time: Saturday, April 29, 2017 19:23 - CONCLUSION: The lungs are clear. Stable right lateral pleural thickening. Andrey Virk MD Myocardial Perfusion Scan Nuc Med 04/28/17 0600 Signed Impressions: Service Date/Time: Friday, April 28, 2017 10:45 - CONCLUSION: 1. 20-30%% redistribution in the high anterolateral wall. Findings could represent ischemia at the watershed area between the LAD and circumflex. 2. Adequate wall motion throughout with an estimated ejection fraction of 61%% RISK CATEGORY: Intermediate (1-3%% Annual Mortality Rate) Gonzalez Tolliver MD Head CT 04/26/17 0000 Signed Impressions: Service Date/Time: Wednesday, April 26, 2017 13:09 - CONCLUSION: 2 old areas of encephalomalacia on the right side. No evidence of acute hemorrhage, edema, mass, or mass effect. Keanu Monahan MD CT Angiography 04/26/17 0000 Signed Impressions: Service Date/Time: Wednesday, April 26, 2017 11:29 - CONCLUSION: Normal examination with no evidence of pulmonary embolism. Minimal atelectasis scarring both lung bases. Keanu Monahan MD Objective Remarks GENERAL: IN No ACUTE distress. NO ACTIVE NASAL BLEEDING TODAY SKIN: There is an open ulcer with erythema at the base and surrounding the ulcer on the right upper back. HEAD: Atraumatic. Normocephalic. No temporal or scalp tenderness. EYES: Pupils equal round and reactive. Extraocular motions intact. No scleral icterus. No injection or drainage. ENT: Nose without bleeding, purulent drainage or septal hematoma. Throat without erythema, tonsillar hypertrophy or exudate. Uvula midline. Airway patent. NECK: Trachea midline. No JVD or lymphadenopathy. Supple, nontender, no meningeal signs. CARDIOVASCULAR: Normal rate. Regular rhythm. Mechanical click noted. S1, S2 NO S3 OR S4 NO HEAVE OR THRILL RESPIRATORY: Clear to auscultation. Breath sounds equal bilaterally. No wheezes , rales, or rhonchi. GASTROINTESTINAL: Abdomen soft, non-tender, nondistended. No hepato-splenomegaly , or palpable masses. No guarding. MUSCULOSKELETAL: Extremities without clubbing, cyanosis, or edema. No joint tenderness, effusion, or edema noted. NEUROLOGICAL: Awake and alert. Cranial nerves II through XII intact. Motor and sensory grossly within normal limits. Five out of 5 muscle strength in all muscle groups. Normal speech. PSYCH: Slightly flattened affect. Insight and judgment is good. Mood and behavior is appropriate Medications and IVs Current Medications Vancomycin HCl 1000 mg/Sodium Chloride 250 ml @ 250 mls/hr ONCE ONCE IV Last administered on 04/24/17at 21:04; Start 04/24/17 at 19:30; Stop 04/24/17 at 20:29; Status DC Ketorolac Tromethamine (Toradol Inj) 30 mg ONCE ONCE IV PUSH Last administered on 04/24/17at 21:05; Start 04/24/17 at 20:15; Stop 04/24/17 at 20:16; Status DC Famotidine (Pepcid Inj) 20 mg ONCE IV PUSH Last administered on 04/24/17at 21:06 ; Start 04/24/17 at 20:15; Stop 04/28/17 at 16:04; Status DC Ondansetron HCl (Zofran Inj) 4 mg ONCE ONCE IV PUSH Last administered on at 20:15; Start 04/24/17 at 20:15; Stop 04/24/17 at 20:16; Status DC Sodium Chloride 1,000 ml @ 999 mls/hr BOLUS ONCE IV Last administered on at 21:05; Start 04/24/17 at 20:15; Stop 04/24/17 at 21:15; Status DC Sodium Chloride (NS Flush) 2 ml UNSCH PRN IV FLUSH FLUSH AFTER USING IV ACCESS ; Start 04/24/17 at 23:30 Sodium Chloride (NS Flush) 2 ml BID IV FLUSH Last administered on 05/03/17 10: 35; Start 04/25/17 at 09:00 Acetaminophen (Tylenol) 650 mg Q4H PRN PO TEMP > 100.4 Last administered on 04/29 20:46; Start 04/24/17 at 23:30 Ondansetron HCl (Zofran Inj) 4 mg Q6H PRN IVP NAUSEA OR VOMITING Last administered on 04/29/17 01:40; Start 04/24/17 at 23:30 Naloxone HCl (Narcan Inj) 0.4 mg UNSCH PRN IV PUSH SEE LABEL COMMENTS; Start at 23:30 Magnesium Hydroxide (Milk Of Magnesia Liq) 30 ml Q12H PRN PO Mild constipation ; Start 04/24/17 at 23:30 Sennosides (Senokot) 17.2 mg Q12H PRN PO Moderate constipation; Start 04/24/17 at 23:30 Bisacodyl (Dulcolax Supp) 10 mg DAILY PRN RECTAL SEVERE CONSITIPATION; Start at 23:30 Lactulose (Lactulose Liq) 30 ml DAILY PRN PO SEVERE CONSITIPATION; Start at 23:30 Enoxaparin Sodium (Lovenox Inj) 100 mg DAILY SQ Last administered on 04/29/17 09:24; Start 04/25/17 at 09:00 Ferrous Sulfate (Ferrous Sulfate Liq) 15 mg BID PO Last administered on 10:19; Start 04/25/17 at 09:00 Fluoxetine HCl (PROzac) 10 mg DAILY PO Last administered on 05/03/17 10:14; Start 04/25/17 at 09:00 Metoprolol Succinate (Toprol Xl) 12.5 mg BID PO Last administered on 05/02/17 22:07; Start 04/25/17 at 09:00 Pantoprazole Sodium (Protonix) 40 mg DAILY PO Last administered on 05/03/17 10 :14; Start 04/25/17 at 09:00 Topiramate (Topamax) 25 mg BID PO Last administered on 05/03/17 10:15; Start 04/25/17 at 09:00 Oxycodone/ Acetaminophen (Percocet 5-325 Mg) 1 tab Q6H PRN PO PAIN 3-5 Last administered on 04/29/17 20:46; Start 04/25/17 at 01:00 Vancomycin HCl 1000 mg/Sodium Chloride 250 ml @ 250 mls/hr Q12H IV Last administered on 04/27/17at 10:20; Start 04/25/17 at 09:00; Stop 04/27/17 at 11:55; Status DC Pharmacy Profile Note 0 ml @ 0 mls/hr UNSCH OTHER ; Start 04/25/17 at 01:00; Stop 04/27/17 at 11:55; Status DC Aspirin (Aspirin Chew) 81 mg DAILY CHEW Last administered on 04/30/17 09:59; Start 04/25/17 at 15:00; Status Future Hold Lorazepam (Ativan) 1 mg BID PRN PO ANXIETY AND/OR AGITATION Last administered on 04/26/17 08:24; Start 04/25/17 at 12:00; Stop 04/26/17 at 12:24; Status DC Oxycodone/ Acetaminophen (Percocet 10-325 Mg) 1 tab Q4H PRN PO pain 6-10 Last administered on 05/03/17at 06:16; Start 04/25/17 at 14:30 Hydromorphone HCl (Dilaudid Pf Inj) 0.5 mg Q4H PRN IV PUSH breakthrough pain Last administered on 04/27/17 10:16; Start 04/25/17 at 14:30; Stop 04/27/17 at 11: 53; Status DC Miscellaneous Information SPECIFIC LAB TO BE DRAWN:DARI TROUGH DATE TO BE DRImani.. ONCE ONCE .XX Last administered on 04/26/17at 10:10; Start 04/26/17 at 08: 45; Stop 04/26/17 at 08:46; Status DC Ferrous Sulfate (Ferrous Sulfate Liq) 15 mg BID PO ; Start 04/25/17 at 23:45; Status Cancel Nitroglycerin (Nitrostat Sl) 0.4 mg STK-MED ONCE SL ; Start 04/26/17 at 10:59; Stop 04/26/17 at 11:00; Status DC Iohexol (Omnipaque 350 Inj) 74 ml STK-MED ONCE IVCONTRAST Last administered on 04/26/17at 11:32; Start 04/26/17 at 11:32; Stop 04/26/17 at 11:33; Status DC Lorazepam (Ativan) 1 mg TID PRN PO ANXIETY AND/OR AGITATION Last administered on 05/02/17at 22:55; Start 04/26/17 at 12:30 Albuterol/ Ipratropium (Duoneb Neb) 1 ampule Q2HR NEB PRN NEB dyspnea; Start at 14:15 Albuterol/ Ipratropium (Duoneb Neb) 1 ampule Q6HR WHILE AWAKE NEB NEB Last administered on 04/29/17at 19:57; Start 04/26/17 at 14:15; Stop 04/30/17 at 14:14; Status DC Regadenoson (Lexiscan Inj) 0.4 mg STK-MED ONCE .ROUTE Last administered on at 11:17; Start 04/28/17 at 11:17; Stop 04/28/17 at 11:18; Status DC Vancomycin HCl 1000 mg/Sodium Chloride 250 ml @ 250 mls/hr Q12H IV ; Start 04/29 at 17:15; Stop 04/29/17 at 17:54; Status DC Pharmacy Profile Note 0 ml @ 0 mls/hr UNSCH OTHER ; Start 04/29/17 at 17:15 Levofloxacin/ Dextrose 150 ml @ 100 mls/hr Q24H IV Last administered on at 17:15; Start 04/29/17 at 18:00; Stop 05/02/17 at 18:13; Status DC Vancomycin HCl 1000 mg/Sodium Chloride 250 ml @ 250 mls/hr Q8H IV Last administered on 05/03/17at 10:17; Start 04/29/17 at 18:00 Sodium Chloride 1,000 ml @ 999 mls/hr BOLUS ONCE IV Last administered on at 22:27; Start 04/29/17 at 21:45; Stop 04/29/17 at 22:45; Status DC Oxymetazoline HCl (Afrin 0.05% [place]) 2 spray ONCE ONCE NASAL Last administered on 04/30/17at 05:48; Start 04/30/17 at 05:30; Stop 04/30/17 at 05:31; Status DC Miscellaneous Information SPECIFIC LAB TO BE KAYLEE... ONCE ONCE .XX Last administered on 04/30/17at 17:45; Start 04/30/17 at 17:45; Stop 04/30/17 at 17:46; Status DC Miscellaneous Information SPECIFIC LAB TO BE DRAWN:VANCO TROUGH DATE TO BE DRSowmya ONCE ONCE .XX Last administered on 05/01/17at 17:45; Start 05/01/17 at 17: 45; Stop 05/01/17 at 17:46; Status DC Mupirocin (Bactroban 2% Cream) 1 applic TID OTHER ; Start 05/01/17 at 09:00; Stop 05/01/17 at 09:52; Status DC Mupirocin (Bactroban Nasal 2% Oint) 1 applic TID OTHER Last administered on 12/11at 10:19; Start 05/01/17 at 13:00 Heparin Sodium/ Dextrose 250 ml @ 9 mls/hr TITRATE PRN IV Coagulation Management Last administered on 05/01/17at 15:22; Start 05/01/17 at 13:15; Status Future Hold Miscellaneous Information SPECIFIC LAB TO BE DRAWN:VANCO TROUGH DATE TO BE ONCE ONCE .XX Last administered on 05/02/17at 10:26; Start 05/02/17 at 09: 45; Stop 05/02/17 at 09:46; Status DC Heparin Sodium/ Dextrose 250 ml @ 0 mls/hr TITRATE PRN IV Coagulation Management; Start 05/03/17 at 11:30; Status UNV Warfarin Sodium (Coumadin) 5 mg DAILY@1600 PO ; Start 05/03/17 at 16:00; Status UNV A/P Problem List: (1) Infected ulcer of skin ICD Code: L98.499 - Non-pressure chronic ulcer of skin of other sites with unspecified severity; L08.9 - Local infection of the skin and subcutaneous tissue, unspecified Status: Acute (2) H/O endocarditis ICD Code: Z86.79 - Personal history of other diseases of the circulatory system Status: Chronic (3) Systolic CHF, chronic ICD Code: I50.22 - Chronic systolic (congestive) heart failure Status: Chronic (4) History of heart valve replacement ICD Code: Z95.2 - Presence of prosthetic heart valve (5) Anxiety ICD Code: F41.9 - Anxiety disorder, unspecified Status: Acute (6) Epistaxis ICD Code: R04.0 - Epistaxis Plan: PT/PTT elevated. Platelets within normal range. Lovenox was held due to epistaxis. Resume IV heparin drip after epistaxis has resolved. Consult ENT. Monitor hemoglobin. Hemoglobin slowly trending down from 10.8-9.9-9.8-9.7. Transfuse as needed for hemoglobin less than 8 if active bleeding, symptomatic anemia, goal of hemoglobin more than 9. 05/01 appreciate ENT consultation, recommendations noted. At this time I will start the patient on IV heparin drip since the patient is a high risk for thrombus formation given mechanical valve. Heparin drip will be continued 24 hours and if there is no bleeding then the patient will likely be safe to be switched to Lovenox subcutaneously. I will order fibrinogen, LDH and haptoglobin to rule out DIC. SEEN BY ENT WANTS TO HOLD ANTICOAGULATION ONE MORE DAY WILL RESTART ON 3-10 WITH HEPARIN DRIP AND COUMADIN 5MG Assessment and Plan Assessment and Plan Sepsis/fever Unclear etiology. Chest x-ray negative for infiltrates, UA negative. Suspect cellulitis of the right upper back. ID consulted. As procedure recommendations. Continue IV vancomycin IV Levaquin. Monitor blood cultures Monitor white blood cell count Check 2D echocardiogram. Sepsis seems to be improving with improved tachycardia and resolved leukocytosis. 05/01 continue IV antibiotics as per ID. The patient still having low-grade fevers, however these are improving. Blood cultures negative 2. Acute hypercarbic respiratory failure. Now resolved. As per medical records patient with CO2 retention which improved on repeat ABG. The patient was transitioned back from nonrebreather mask to nasal cannula. Etiology unclear. - wean O2 as tolerated. - standing and as needed nebs. - IS. - encourage ambulation. 04/29 much improved. Continue supplemental oxygen as tolerated. Acute chest pain Left-sided. Family history significant for CAD. EKG without acute ischemic changes. Trops peaked at 0.07. CTA negative. Cardiology consult appreciated. Stress test 04/28 showed: 20-30% redistribution in the high anterolateral wall; Findings could represent ischemia at the watershed area between the LAD and circumflex; Adequate wall motion throughout with an estimated ejection fraction of 61%. Discussed results with cardiology and radiology. Continue telemetry. 04/29 nuclear stress testing with 20-30% with distribution height anterolateral wall.. Findings could represent ischemia at the watershed area between the LAD and the circumflex. We will obtain chest x-ray since patient is having no fevers. Possible chest pain could be secondary to pneumonia versus skin lesion in the right upper back. 04/30 cardiology recommended medical management. Consider noncardiac chest pain etiologies. Back wound Reportedly started as reaction to Zosyn. Patient has been caring for it herself. Did not follow up outpatient with wound care. Wound nurse recommendations appreciated. Seems to be clean and without evidence of infection. Wound culture with normal heath. - wound care as recommended by wound nurse. -Initially started on IV vancomycin. - Pain control with a bowel regimen. Vancomycin discontinued. - follow blood cultures, NGTD. 04/01 I will consult infectious disease and start the patient IV outpatient antibiotic therapy given no fevers. Suspect cellulitis of the right upper back wound. Continue antibiotics as above. H/O endocarditis Recently treated at [facility] in [place] for bacteremia. - Repeat blood cultures. NGTD. - cardiology following. Systolic CHF, chronic No evidence of fluid overload at this time. Most recent echo in out system with normal EF. - Continue metoprolol. - Hold lisinopril and Aldactone due to low blood pressure. Resume when appropriate. History of heart valve replacement On Lovenox. States Coumadin did not work for her. 04/30 hold Lovenox due to recurrent epistaxis. Once epistaxis stops, will likely resume IV heparin drip. We will transition back to Lovenox once epistaxis has been evaluated by ENT. 05/01 start Iv heparin drip - if no further epistaxis the patient may be placed back on Lovenox.-- ON HOLD DUE TO NASAL BLEEDING Migraines The patient stated that she has had migraines since she developed brain hematomas this past summer. - Pain control as needed. 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
[2017-05-03] MEDS ORDERED: diphenhydrAMINE HCL 25 MG CAP PO PRN (11:45)
[2017-05-03] MEDS ORDERED: METHOCARBAMOL 500 MG TAB PO PRN (12:00)
[2017-05-03] MEDS ORDERED: oxyCODONE/ACETAMINOPHEN 5 MG/325 MG TAB PO PRN (12:00)
[2017-05-03 12:19] LABS: HEMOGLOBIN A1C 5.1 % (4.3-6.0)
[2017-05-03 12:57] LABS: HEMATOCRIT 27.8 % (35.0-46.0); HEMOGLOBIN 9.4 GM/DL (11.6-15.3); MEAN CELL VOLUME 93.5 FL (80.0-100.0); MEAN CORPUSCULAR HEMOGLOBIN 31.6 PG (27.0-34.0); MEAN CORPUSCULAR HGB CONC 33.8 % (32.0-36.0); MEAN PLATELET VOLUME 7.9 FL (7.0-11.0); PLATELET COUNT 349 TH/MM3 (150-450); RED BLOOD COUNT 2.97 MIL/MM3 (4.00-5.30); RED CELL DISTRIBUTION WIDTH 14.3 % (11.6-17.2); WHITE BLOOD COUNT 8.7 TH/MM3 (4.0-11.0)
[2017-05-03] MEDS ORDERED: DO NOT ADM ANY ANTICOAGULANT DRUGS OTHER PRN (13:00)
[2017-05-03] MEDS: HEPARIN-D5W 25,000 U/250 ML 250 ML IV PRN ×2 (13:09→22:42)
[2017-05-03 13:10] LABS: INTERNATIONAL NORMALIZED RATIO 1.1 RATIO; PROTHROMBIN TIME - PATIENT 11.2 SEC (9.8-11.6)
[2017-05-03] MEDS ORDERED: WARFARIN SOD 5 MG TAB PO SCH (16:00)
[2017-05-03] MEDS: LORazepam 1 MG TAB PO PRN (20:40)
[2017-05-04] VITALS (10 sets, daily range): BP systolic 118–132; BP diastolic 58–72; PULSE 60–82; RESP 18; TEMP 97.5–99.6; O2SAT 98–100
[2017-05-04] MEDS: VANCOMYCIN 1,000 MG/NS 250 ML IV SCH ×6 (01:25→18:48)
[2017-05-04 05:52] LABS: HEMATOCRIT 29.7 % (35.0-46.0); MEAN CELL VOLUME 93.4 FL (80.0-100.0); MEAN CORPUSCULAR HEMOGLOBIN 31.4 PG (27.0-34.0); MEAN CORPUSCULAR HGB CONC 33.7 % (32.0-36.0); MEAN PLATELET VOLUME 7.7 FL (7.0-11.0); PLATELET COUNT 404 TH/MM3 (150-450); RED BLOOD COUNT 3.18 MIL/MM3 (4.00-5.30); RED CELL DISTRIBUTION WIDTH 14.1 % (11.6-17.2); WHITE BLOOD COUNT 10.8 TH/MM3 (4.0-11.0)
[2017-05-04 06:10] LABS: INTERNATIONAL NORMALIZED RATIO 1.1 RATIO; PROTHROMBIN TIME - PATIENT 11.1 SEC (9.8-11.6)
[2017-05-04] MEDS: HEPARIN-D5W 25,000 U/250 ML 250 ML IV PRN (06:37)
[2017-05-04] MEDS: SODIUM CHLORIDE 0.9% FLUSH 10 ML FLUSH IV FLUSH SCH ×2 (09:00→21:32)
[2017-05-04] MEDS: MUPIROCIN 2% OINT 1 APPLIC/GM SYR OTHER SCH ×3 (09:00→18:00)
[2017-05-04] MEDS: METOPROLOL SUCCINATE 25 MG EXTENDED RELEASE TAB PO SCH ×3 (09:00→21:32)
[2017-05-04] MEDS: PANTOPRAZOLE SOD 40 MG DELAYED RELEASE TAB PO SCH (09:45)
[2017-05-04] MEDS: FLUoxetine HCL 10 MG CAP PO SCH (09:45)
[2017-05-04] MEDS: TOPIRAMATE 25 MG TAB PO SCH ×2 (09:45→21:32)
[2017-05-04] MEDS: FERROUS SULFATE 15 MG/ML ELEMENTAL IRON 50 ML BTL PO SCH ×2 (09:46→21:33)
[2017-05-04] MEDS: oxyCODONE/ACETAMINOPHEN 10 MG/325 MG TAB PO PRN (11:24)
--- NOTE | 2017-05-04 12:35 | HHI.PR ---
Subjective Remarks 3-9 STILL HAVING SOME INTERMITTENT NASAL BLEEDING AND NOW POSSIBLE RASH BY EYES AND RIGHT SIDE OF FACE-ONLY NEW RX IS MUPIROCIN DW PATIENT AND RN HOLD OF ON HEPARIN DRIP AND COUMADIN HOPEFULLY START TOMORROW IF NO MORE NASAL BLEEDING 3-10 WANTS PAIN MEDICATIONS WILL RESTART HEPARIN AND COUMADIN WANTS BENADRYL DW RN AND PT DAILY PT INR DW PATIENT AND RN AND CM NO MORE BLEEDING 3- INR IS ONLY 1.1 WILL INCREASE COUMADIN TO 7.5 DW RN AND PT NO BLEEDING RELOAD COUMADIN Objective Vitals Vital Signs Date Time Temp Pulse Resp B/P (MAP) Pulse Ox O2 Delivery O2 Flow Rate FiO2 05/04/17 12:00 99.6 82 18 132/63 (86) 98 05/04/17 11:41 66 05/04/17 10:02 Room Air 05/04/17 08:00 98.8 68 18 123/60 (81) 99 05/04/17 04:00 65 05/04/17 04:00 98.3 60 18 130/60 (83) 99 05/04/17 00:00 68 05/04/17 00:00 98.8 67 18 118/58 (78) 100 05/03/17 20:30 98.7 67 18 139/60 (86) 98 05/03/17 20:24 Room Air 05/03/17 20:00 65 05/03/17 16:43 69 05/03/17 16:04 98.7 69 18 98/52 (67) 94 05/03/17 13:21 65 05/03/17 12:39 71 18 101/56 (71) 95 I/O 05/03/17 05/03/17 05/03/17 05/04/17 05/04/17 05/04/17 07:00 15:00 23:00 07:00 15:00 23:00 # Voids 4 2 2 # Bowel Movements 0 0 0 Result Diagram: 05/04/17 0518 05/03/1715 Other Results Laboratory Tests Test 05/01/17 13:36 05/01/17 16:43 05/01/17 20:48 05/02/17 10:20 White Blood Count 9.0 TH/MM3 Red Blood Count 2.95 MIL/MM3 Hemoglobin 9.6 GM/DL Hematocrit 28.1 % Mean Corpuscular Volume 95.1 FL Mean Corpuscular Hemoglobin 32.4 PG Mean Corpuscular Hemoglobin Concent 34.0 % Red Cell Distribution Width 14.3 % Platelet Count 285 TH/MM3 Mean Platelet Volume 7.9 FL Prothrombin Time 11.7 SEC Prothromb Time International Ratio 1.2 RATIO Activated Partial Thromboplast Time 29.1 SEC 28.8 SEC Haptoglobin 14 MG/DL Fibrinogen 375 mg/dL Lactate Dehydrogenase 299 U/L Vancomycin Level Trough 18.1 MCG/ML 16.3 MCG/ML Test 05/02/17 13:30 05/03/17 06:15 05/03/17 12:17 05/03/17 19:30 White Blood Count 8.2 TH/MM3 8.5 TH/MM3 8.7 TH/MM3 Red Blood Count 2.98 MIL/MM3 2.81 MIL/MM3 2.97 MIL/MM3 Hemoglobin 9.5 GM/DL 8.7 GM/DL 9.4 GM/DL Hematocrit 27.8 % 26.3 % 27.8 % Mean Corpuscular Volume 93.5 FL 93.6 FL 93.5 FL Mean Corpuscular Hemoglobin 31.7 PG 30.9 PG 31.6 PG Mean Corpuscular Hemoglobin Concent 34.0 % 33.1 % 33.8 % Red Cell Distribution Width 14.1 % 13.9 % 14.3 % Platelet Count 317 TH/MM3 330 TH/MM3 349 TH/MM3 Mean Platelet Volume 7.8 FL 8.1 FL 7.9 FL Neutrophils (%) (Auto) 48.5 % Lymphocytes (%) (Auto) 32.7 % Monocytes (%) (Auto) 9.9 % Eosinophils (%) (Auto) 7.7 % Basophils (%) (Auto) 1.2 % Neutrophils # (Auto) 4.1 TH/MM3 Lymphocytes # (Auto) 2.8 TH/MM3 Monocytes # (Auto) 0.8 TH/MM3 Eosinophils # (Auto) 0.7 TH/MM3 Basophils # (Auto) 0.1 TH/MM3 CBC Comment DIFF FINAL Differential Comment Prothrombin Time 11.4 SEC 11.2 SEC Prothromb Time International Ratio 1.1 RATIO 1.1 RATIO Blood Urea Nitrogen 13 MG/DL Creatinine 0.97 MG/DL Random Glucose 92 MG/DL Total Protein 6.7 GM/DL Albumin 3.0 GM/DL Calcium Level 8.3 MG/DL Phosphorus Level 3.8 MG/DL Magnesium Level 2.1 MG/DL Alkaline Phosphatase 118 U/L Aspartate Amino Transf (AST/SGOT) 12 U/L Alanine Aminotransferase (ALT/SGPT) 16 U/L Total Bilirubin 0.6 MG/DL Sodium Level 139 MEQ/L Potassium Level 3.8 MEQ/L Chloride Level 108 MEQ/L Carbon Dioxide Level 22.8 MEQ/L Anion Gap 8 MEQ/L Estimat Glomerular Filtration Rate 69 ML/MIN Hemoglobin A1c 5.1 % Free Thyroxine 1.13 NG/DL Thyroid Stimulating Hormone 3rd Gen 1.230 uIU/ML Activated Partial Thromboplast Time 24.4 SEC 35.5 SEC Test 05/04/17 05:18 05/04/17 11:39 White Blood Count 10.8 TH/MM3 Red Blood Count 3.18 MIL/MM3 Hemoglobin 10.0 GM/DL Hematocrit 29.7 % Mean Corpuscular Volume 93.4 FL Mean Corpuscular Hemoglobin 31.4 PG Mean Corpuscular Hemoglobin Concent 33.7 % Red Cell Distribution Width 14.1 % Platelet Count 404 TH/MM3 Mean Platelet Volume 7.7 FL Prothrombin Time 11.1 SEC Prothromb Time International Ratio 1.1 RATIO Activated Partial Thromboplast Time 45.7 SEC 41.1 SEC Imaging Last Impressions Chest X-Ray 04/29/17 0000 Signed Impressions: Service Date/Time: Saturday, April 29, 2017 19:23 - CONCLUSION: The lungs are clear. Stable right lateral pleural thickening. Andrey Virk MD Myocardial Perfusion Scan Nuc Med 04/28/17 0600 Signed Impressions: Service Date/Time: Friday, April 28, 2017 10:45 - CONCLUSION: 1. 20-30%% redistribution in the high anterolateral wall. Findings could represent ischemia at the watershed area between the LAD and circumflex. 2. Adequate wall motion throughout with an estimated ejection fraction of 61%% RISK CATEGORY: Intermediate (1-3%% Annual Mortality Rate) Gonzalez Tolliver MD Head CT 04/26/17 0000 Signed Impressions: Service Date/Time: Wednesday, April 26, 2017 13:09 - CONCLUSION: 2 old areas of encephalomalacia on the right side. No evidence of acute hemorrhage, edema, mass, or mass effect. Keanu Monahan MD CT Angiography 04/26/17 0000 Signed Impressions: Service Date/Time: Wednesday, April 26, 2017 11:29 - CONCLUSION: Normal examination with no evidence of pulmonary embolism. Minimal atelectasis scarring both lung bases. Keanu Monahan MD Objective Remarks GENERAL: IN No ACUTE distress. NO ACTIVE NASAL BLEEDING TODAY SKIN: There is an open ulcer with erythema at the base and surrounding the ulcer on the right upper back. HEAD: Atraumatic. Normocephalic. No temporal or scalp tenderness. EYES: Pupils equal round and reactive. Extraocular motions intact. No scleral icterus. No injection or drainage. ENT: Nose without bleeding, purulent drainage or septal hematoma. Throat without erythema, tonsillar hypertrophy or exudate. Uvula midline. Airway patent. NECK: Trachea midline. No JVD or lymphadenopathy. Supple, nontender, no meningeal signs. CARDIOVASCULAR: Normal rate. Regular rhythm. Mechanical click noted. S1, S2 NO S3 OR S4 NO HEAVE OR THRILL RESPIRATORY: Clear to auscultation. Breath sounds equal bilaterally. No wheezes , rales, or rhonchi. GASTROINTESTINAL: Abdomen soft, non-tender, nondistended. No hepato-splenomegaly , or palpable masses. No guarding. MUSCULOSKELETAL: Extremities without clubbing, cyanosis, or edema. No joint tenderness, effusion, or edema noted. NEUROLOGICAL: Awake and alert. Cranial nerves II through XII intact. Motor and sensory grossly within normal limits. Five out of 5 muscle strength in all muscle groups. Normal speech. PSYCH: Slightly flattened affect. Insight and judgment is good. Mood and behavior is appropriate Procedures NONE Medications and IVs Current Medications Vancomycin HCl 1000 mg/Sodium Chloride 250 ml @ 250 mls/hr ONCE ONCE IV Last administered on 04/24/17at 21:04; Start 04/24/17 at 19:30; Stop 04/24/17 at 20:29; Status DC Ketorolac Tromethamine (Toradol Inj) 30 mg ONCE ONCE IV PUSH Last administered on 04/24/17at 21:05; Start 04/24/17 at 20:15; Stop 04/24/17 at 20:16; Status DC Famotidine (Pepcid Inj) 20 mg ONCE IV PUSH Last administered on 04/24/17at 21:06 ; Start 04/24/17 at 20:15; Stop 04/28/17 at 16:04; Status DC Ondansetron HCl (Zofran Inj) 4 mg ONCE ONCE IV PUSH Last administered on at 20:15; Start 04/24/17 at 20:15; Stop 04/24/17 at 20:16; Status DC Sodium Chloride 1,000 ml @ 999 mls/hr BOLUS ONCE IV Last administered on at 21:05; Start 04/24/17 at 20:15; Stop 04/24/17 at 21:15; Status DC Sodium Chloride (NS Flush) 2 ml UNSCH PRN IV FLUSH FLUSH AFTER USING IV ACCESS ; Start 04/24/17 at 23:30 Sodium Chloride (NS Flush) 2 ml BID IV FLUSH Last administered on 05/04/17at 09: 00; Start 04/25/17 at 09:00 Acetaminophen (Tylenol) 650 mg Q4H PRN PO TEMP > 100.4 Last administered on 04/29at 20:46; Start 04/24/17 at 23:30 Ondansetron HCl (Zofran Inj) 4 mg Q6H PRN IVP NAUSEA OR VOMITING Last administered on 04/29/17at 01:40; Start 04/24/17 at 23:30 Naloxone HCl (Narcan Inj) 0.4 mg UNSCH PRN IV PUSH SEE LABEL COMMENTS; Start at 23:30 Magnesium Hydroxide (Milk Of Magnesia Liq) 30 ml Q12H PRN PO Mild constipation ; Start 04/24/17 at 23:30 Sennosides (Senokot) 17.2 mg Q12H PRN PO Moderate constipation; Start 04/24/17 at 23:30 Bisacodyl (Dulcolax Supp) 10 mg DAILY PRN RECTAL SEVERE CONSITIPATION; Start at 23:30 Lactulose (Lactulose Liq) 30 ml DAILY PRN PO SEVERE CONSITIPATION; Start at 23:30 Enoxaparin Sodium (Lovenox Inj) 100 mg DAILY SQ Last administered on 04/29/17at 09:24; Start 04/25/17 at 09:00; Status Future Hold Ferrous Sulfate (Ferrous Sulfate Liq) 15 mg BID PO Last administered on at 09:46; Start 04/25/17 at 09:00 Fluoxetine HCl (PROzac) 10 mg DAILY PO Last administered on 05/04/17 09:45; Start 04/25/17 at 09:00 Metoprolol Succinate (Toprol Xl) 12.5 mg BID PO Last administered on 05/03/17at 20:40; Start 04/25/17 at 09:00 Pantoprazole Sodium (Protonix) 40 mg DAILY PO Last administered on 05/04/17 09 :45; Start 04/25/17 at 09:00 Topiramate (Topamax) 25 mg BID PO Last administered on 05/04/17 09:45; Start 04/25/17 at 09:00 Oxycodone/ Acetaminophen (Percocet 5-325 Mg) 1 tab Q6H PRN PO PAIN 3-5 Last administered on 04/29/17 20:46; Start 04/25/17 at 01:00; Stop 05/03/17 at 11:49; Status DC Vancomycin HCl 1000 mg/Sodium Chloride 250 ml @ 250 mls/hr Q12H IV Last administered on 04/27/17 10:20; Start 04/25/17 at 09:00; Stop 04/27/17 at 11:55; Status DC Pharmacy Profile Note 0 ml @ 0 mls/hr UNSCH OTHER ; Start 04/25/17 at 01:00; Stop 04/27/17 at 11:55; Status DC Aspirin (Aspirin Chew) 81 mg DAILY CHEW Last administered on 04/30/17 09:59; Start 04/25/17 at 15:00; Status Future Hold Lorazepam (Ativan) 1 mg BID PRN PO ANXIETY AND/OR AGITATION Last administered on 04/26/17 08:24; Start 04/25/17 at 12:00; Stop 04/26/17 at 12:24; Status DC Oxycodone/ Acetaminophen (Percocet 10-325 Mg) 1 tab Q4H PRN PO pain 6-10 Last administered on 05/04/17 11:24; Start 04/25/17 at 14:30 Hydromorphone HCl (Dilaudid Pf Inj) 0.5 mg Q4H PRN IV PUSH breakthrough pain Last administered on 04/27/17 10:16; Start 04/25/17 at 14:30; Stop 04/27/17 at 11: 53; Status DC Miscellaneous Information SPECIFIC LAB TO BE DRAWN:VANCO TROUGH DATE TO BE DRSowmya ONCE ONCE .XX Last administered on 04/26/17at 10:10; Start 04/26/17 at 08: 45; Stop 04/26/17 at 08:46; Status DC Ferrous Sulfate (Ferrous Sulfate Liq) 15 mg BID PO ; Start 04/25/17 at 23:45; Status Cancel Nitroglycerin (Nitrostat Sl) 0.4 mg STK-MED ONCE SL ; Start 04/26/17 at 10:59; Stop 04/26/17 at 11:00; Status DC Iohexol (Omnipaque 350 Inj) 74 ml STK-MED ONCE IVCONTRAST Last administered on 04/26/17at 11:32; Start 04/26/17 at 11:32; Stop 04/26/17 at 11:33; Status DC Lorazepam (Ativan) 1 mg TID PRN PO ANXIETY AND/OR AGITATION Last administered on 05/03/17at 20:40; Start 04/26/17 at 12:30 Albuterol/ Ipratropium (Duoneb Neb) 1 ampule Q2HR NEB PRN NEB dyspnea; Start at 14:15 Albuterol/ Ipratropium (Duoneb Neb) 1 ampule Q6HR WHILE AWAKE NEB NEB Last administered on 04/29/17at 19:57; Start 04/26/17 at 14:15; Stop 04/30/17 at 14:14; Status DC Regadenoson (Lexiscan Inj) 0.4 mg STK-MED ONCE .ROUTE Last administered on at 11:17; Start 04/28/17 at 11:17; Stop 04/28/17 at 11:18; Status DC Vancomycin HCl 1000 mg/Sodium Chloride 250 ml @ 250 mls/hr Q12H IV ; Start 04/29 at 17:15; Stop 04/29/17 at 17:54; Status DC Pharmacy Profile Note 0 ml @ 0 mls/hr UNSCH OTHER ; Start 04/29/17 at 17:15 Levofloxacin/ Dextrose 150 ml @ 100 mls/hr Q24H IV Last administered on at 17:15; Start 04/29/17 at 18:00; Stop 05/02/17 at 18:13; Status DC Vancomycin HCl 1000 mg/Sodium Chloride 250 ml @ 250 mls/hr Q8H IV Last administered on 05/04/17at 11:25; Start 04/29/17 at 18:00 Sodium Chloride 1,000 ml @ 999 mls/hr BOLUS ONCE IV Last administered on at 22:27; Start 04/29/17 at 21:45; Stop 04/29/17 at 22:45; Status DC Oxymetazoline HCl (Afrin 0.05% Kory Serafina) 2 spray ONCE ONCE NASAL Last administered on 04/30/17at 05:48; Start 04/30/17 at 05:30; Stop 04/30/17 at 05:31; Status DC Miscellaneous Information SPECIFIC LAB TO BE ... ONCE ONCE .XX Last administered on 04/30/17at 17:45; Start 04/30/17 at 17:45; Stop 04/30/17 at 17:46; Status DC Miscellaneous Information SPECIFIC LAB TO BE DRAWN:VANCO TROUGH DATE TO BE [email or web address] ONCE ONCE .XX Last administered on 05/01/17at 17:45; Start 05/01/17 at 17: 45; Stop 05/01/17 at 17:46; Status DC Mupirocin (Bactroban 2% Cream) 1 applic TID OTHER ; Start 05/01/17 at 09:00; Stop 05/01/17 at 09:52; Status DC Mupirocin (Bactroban Nasal 2% Oint) 1 applic TID OTHER Last administered on 12/11at 10:19; Start 05/01/17 at 13:00 Heparin Sodium/ Dextrose 250 ml @ 9 mls/hr TITRATE PRN IV Coagulation Management Last administered on 05/01/17at 15:22; Start 05/01/17 at 13:15; Stop 12/11 at 12:29; Status DC Miscellaneous Information SPECIFIC LAB TO BE DRAWN:VANCO TROUGH DATE TO BE .Imani ONCE ONCE .XX Last administered on 05/02/17at 10:26; Start 05/02/17 at 09: 45; Stop 05/02/17 at 09:46; Status DC Heparin Sodium/ Dextrose 250 ml @ 14 mls/hr TITRATE PRN IV Coagulation Management Last administered on 05/04/17at 06:37; Start 05/03/17 at 11:30 Warfarin Sodium (Coumadin) 5 mg DAILY@1600 PO Last administered on 05/03/17at 16 :26; Start 05/03/17 at 16:00 Oxycodone/ Acetaminophen (Percocet 5-325 Mg) 1 tab Q4H PRN PO PAIN 3-5; Start 05/03/17 at 12:00 Diphenhydramine HCl (Benadryl) 25 mg Q6H PRN PO ALLERGIES Last administered on 05/03/17at 20:39; Start 05/03/17 at 11:45 Methocarbamol (Robaxin) 500 mg Q8HR PRN PO SPASM; Start 05/03/17 at 12:00 Miscellaneous Information ALL NURSING DEPARTME... UNSCH PRN OTHER SEE LABEL COMMENTS; Start 05/03/17 at 13:00; Stop 05/04/17 at 12:59 Patient Medication Teaching (Coumadin Booklet) 1 ONCE ONCE OTHER Last administered on 05/03/17at 16:25; Start 05/03/17 at 16:00; Stop 05/03/17 at 16:01 ; Status DC Miscellaneous Information SPECIFIC LAB TO BE DRAWN:VANCO TROUGH DATE TO... ONCE ONCE .XX ; Start 05/06/17 at 09:45; Stop 05/06/17 at 09:46 A/P Problem List: (1) Infected ulcer of skin ICD Code: L98.499 - Non-pressure chronic ulcer of skin of other sites with unspecified severity; L08.9 - Local infection of the skin and subcutaneous tissue, unspecified Status: Acute (2) H/O endocarditis ICD Code: Z86.79 - Personal history of other diseases of the circulatory system Status: Chronic (3) Systolic CHF, chronic ICD Code: I50.22 - Chronic systolic (congestive) heart failure Status: Chronic (4) History of heart valve replacement ICD Code: Z95.2 - Presence of prosthetic heart valve (5) Anxiety ICD Code: F41.9 - Anxiety disorder, unspecified Status: Acute (6) Epistaxis ICD Code: R04.0 - Epistaxis Plan: PT/PTT elevated. Platelets within normal range. Lovenox was held due to epistaxis. Resume IV heparin drip after epistaxis has resolved. Consult ENT. Monitor hemoglobin. Hemoglobin slowly trending down from 10.8-9.9-9.8-9.7. Transfuse as needed for hemoglobin less than 8 if active bleeding, symptomatic anemia, goal of hemoglobin more than 9. 05/01 appreciate ENT consultation, recommendations noted. At this time I will start the patient on IV heparin drip since the patient is a high risk for thrombus formation given mechanical valve. Heparin drip will be continued 24 hours and if there is no bleeding then the patient will likely be safe to be switched to Lovenox subcutaneously. I will order fibrinogen, LDH and haptoglobin to rule out DIC. SEEN BY ENT WANTS TO HOLD ANTICOAGULATION ONE MORE DAY WILL RESTART ON 05-03 WITH HEPARIN DRIP AND COUMADIN INCREASED TO 7.5 TODAY 05-04 Assessment and Plan Assessment and Plan Sepsis/fever Unclear etiology. Chest x-ray negative for infiltrates, UA negative. Suspect cellulitis of the right upper back. ID consulted. As procedure recommendations. Continue IV vancomycin IV Levaquin. Monitor blood cultures Monitor white blood cell count Check 2D echocardiogram. Sepsis seems to be improving with improved tachycardia and resolved leukocytosis. 05/01 continue IV antibiotics as per ID. The patient still having low-grade fevers, however these are improving. Blood cultures negative 2. Acute hypercarbic respiratory failure. Now resolved. As per medical records patient with CO2 retention which improved on repeat ABG. The patient was transitioned back from nonrebreather mask to nasal cannula. Etiology unclear. - wean O2 as tolerated. - standing and as needed nebs. - IS. - encourage ambulation. 04/29 much improved. Continue supplemental oxygen as tolerated. Acute chest pain Left-sided. Family history significant for CAD. EKG without acute ischemic changes. Trops peaked at 0.07. CTA negative. Cardiology consult appreciated. Stress test 04/28 showed: 20-30% redistribution in the high anterolateral wall; Findings could represent ischemia at the watershed area between the LAD and circumflex; Adequate wall motion throughout with an estimated ejection fraction of 61%. Discussed results with cardiology and radiology. Continue telemetry. 04/29 nuclear stress testing with 20-30% with distribution height anterolateral wall.. Findings could represent ischemia at the watershed area between the LAD and the circumflex. We will obtain chest x-ray since patient is having no fevers. Possible chest pain could be secondary to pneumonia versus skin lesion in the right upper back. 04/30 cardiology recommended medical management. Consider noncardiac chest pain etiologies. Back wound Reportedly started as reaction to Zosyn. Patient has been caring for it herself. Did not follow up outpatient with wound care. Wound nurse recommendations appreciated. Seems to be clean and without evidence of infection. Wound culture with normal heath. - wound care as recommended by wound nurse. -Initially started on IV vancomycin. - Pain control with a bowel regimen. Vancomycin discontinued. - follow blood cultures, NGTD. 04/01 I will consult infectious disease and start the patient IV outpatient antibiotic therapy given no fevers. Suspect cellulitis of the right upper back wound. Continue antibiotics as above. H/O endocarditis Recently treated at [facility] in [place] for bacteremia. - Repeat blood cultures. NGTD. - cardiology following. Systolic CHF, chronic No evidence of fluid overload at this time. Most recent echo in out system with normal EF. - Continue metoprolol. - Hold lisinopril and Aldactone due to low blood pressure. Resume when appropriate. History of heart valve replacement On Lovenox. States Coumadin did not work for her. 04/30 hold Lovenox due to recurrent epistaxis. Once epistaxis stops, will likely resume IV heparin drip. We will transition back to Lovenox once epistaxis has been evaluated by ENT. 05/01 start Iv heparin drip - if no further epistaxis the patient may be placed back on Lovenox.-- ON HOLD DUE TO NASAL BLEEDING Migraines The patient stated that she has had migraines since she developed brain hematomas this past summer. - Pain control as needed. 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
[2017-05-04] MEDS ORDERED: WARFARIN SOD 7.5 MG TAB PO SCH (16:00)
[2017-05-04] MEDS: ENOXAPARIN SODIUM 80 MG/0.8 ML SYRINGE SQ SCH (21:32)
[2017-05-05] VITALS (10 sets, daily range): BP systolic 117–135; BP diastolic 54–70; PULSE 60–67; RESP 16–18; TEMP 98.1–99.5; O2SAT 94–99
[2017-05-05] MEDS: VANCOMYCIN 1,000 MG/NS 250 ML IV SCH ×4 (01:42→10:08)
[2017-05-05] MEDS: oxyCODONE/ACETAMINOPHEN 10 MG/325 MG TAB PO PRN ×2 (02:56→10:06)
[2017-05-05] MEDS: MUPIROCIN 2% OINT 1 APPLIC/GM SYR OTHER SCH ×3 (08:50→17:07)
[2017-05-05] MEDS: METOPROLOL SUCCINATE 25 MG EXTENDED RELEASE TAB PO SCH ×2 (08:51→21:43)
[2017-05-05] MEDS: FLUoxetine HCL 10 MG CAP PO SCH (08:51)
[2017-05-05] MEDS: TOPIRAMATE 25 MG TAB PO SCH ×2 (08:51→21:43)
[2017-05-05] MEDS: PANTOPRAZOLE SOD 40 MG DELAYED RELEASE TAB PO SCH (08:51)
[2017-05-05 08:52] LABS: INTERNATIONAL NORMALIZED RATIO 1.2 RATIO; PROTHROMBIN TIME - PATIENT 11.8 SEC (9.8-11.6)
[2017-05-05] MEDS: ENOXAPARIN SODIUM 80 MG/0.8 ML SYRINGE SQ SCH ×2 (08:52→21:43)
[2017-05-05] MEDS: FERROUS SULFATE 15 MG/ML ELEMENTAL IRON 50 ML BTL PO SCH ×2 (08:52→21:47)
[2017-05-05] MEDS: SODIUM CHLORIDE 0.9% FLUSH 10 ML FLUSH IV FLUSH SCH ×2 (08:52→21:43)
--- NOTE | 2017-05-05 10:46 | HHI.PR ---
Subjective Remarks 3-9 STILL HAVING SOME INTERMITTENT NASAL BLEEDING AND NOW POSSIBLE RASH BY EYES AND RIGHT SIDE OF FACE-ONLY NEW RX IS MUPIROCIN DW PATIENT AND RN HOLD OF ON HEPARIN DRIP AND COUMADIN HOPEFULLY START TOMORROW IF NO MORE NASAL BLEEDING 3-10 WANTS PAIN MEDICATIONS WILL RESTART HEPARIN AND COUMADIN WANTS BENADRYL DW RN AND PT DAILY PT INR DW PATIENT AND RN AND CM NO MORE BLEEDING 3-11 INR IS ONLY 1.1 WILL INCREASE COUMADIN TO 7.5 DW RN AND PT NO BLEEDING RELOAD COUMADIN 3-12 CONTINUE LOADING INR HER VANCO WILL BE STOPPED BY ID NEEDS TO BE AT GOAL OF 2.0 TO 3.0 AT LEAST FOR MECHANICAL VALVE INCREASE COUMADIN TO 10MG PO DAILY Objective Vitals Vital Signs Date Time Temp Pulse Resp B/P (MAP) Pulse Ox O2 Delivery O2 Flow Rate FiO2 05/05/17 08:23 98.8 65 17 126/58 (80) 99 05/05/17 04:15 99 05/05/17 04:00 98.1 64 18 119/54 (75) 95 05/05/17 00:00 98.3 67 18 126/70 (88) 99 05/04/17 20:02 78 05/04/17 20:00 98.6 64 18 128/72 (90) 99 05/04/17 17:31 66 05/04/17 16:00 97.5 67 18 130/61 (84) 98 05/04/17 14:45 74 05/04/17 12:00 99.6 82 18 132/63 (86) 98 05/04/17 11:41 66 I/O 05/04/17 05/04/17 05/04/17 05/05/17 05/05/17 05/05/17 07:00 15:00 23:00 07:00 15:00 23:00 # Voids 2 # Bowel Movements 0 Result Diagram: 05/04/17 0518 05/03/17 0615 Other Results Laboratory Tests Test 05/02/17 13:30 05/03/17 06:15 05/03/17 12:17 05/03/17 19:30 White Blood Count 8.2 TH/MM3 8.5 TH/MM3 8.7 TH/MM3 Red Blood Count 2.98 MIL/MM3 2.81 MIL/MM3 2.97 MIL/MM3 Hemoglobin 9.5 GM/DL 8.7 GM/DL 9.4 GM/DL Hematocrit 27.8 % 26.3 % 27.8 % Mean Corpuscular Volume 93.5 FL 93.6 FL 93.5 FL Mean Corpuscular Hemoglobin 31.7 PG 30.9 PG 31.6 PG Mean Corpuscular Hemoglobin Concent 34.0 % 33.1 % 33.8 % Red Cell Distribution Width 14.1 % 13.9 % 14.3 % Platelet Count 317 TH/MM3 330 TH/MM3 349 TH/MM3 Mean Platelet Volume 7.8 FL 8.1 FL 7.9 FL Neutrophils (%) (Auto) 48.5 % Lymphocytes (%) (Auto) 32.7 % Monocytes (%) (Auto) 9.9 % Eosinophils (%) (Auto) 7.7 % Basophils (%) (Auto) 1.2 % Neutrophils # (Auto) 4.1 TH/MM3 Lymphocytes # (Auto) 2.8 TH/MM3 Monocytes # (Auto) 0.8 TH/MM3 Eosinophils # (Auto) 0.7 TH/MM3 Basophils # (Auto) 0.1 TH/MM3 CBC Comment DIFF FINAL Differential Comment Prothrombin Time 11.4 SEC 11.2 SEC Prothromb Time International Ratio 1.1 RATIO 1.1 RATIO Blood Urea Nitrogen 13 MG/DL Creatinine 0.97 MG/DL Random Glucose 92 MG/DL Total Protein 6.7 GM/DL Albumin 3.0 GM/DL Calcium Level 8.3 MG/DL Phosphorus Level 3.8 MG/DL Magnesium Level 2.1 MG/DL Alkaline Phosphatase 118 U/L Aspartate Amino Transf (AST/SGOT) 12 U/L Alanine Aminotransferase (ALT/SGPT) 16 U/L Total Bilirubin 0.6 MG/DL Sodium Level 139 MEQ/L Potassium Level 3.8 MEQ/L Chloride Level 108 MEQ/L Carbon Dioxide Level 22.8 MEQ/L Anion Gap 8 MEQ/L Estimat Glomerular Filtration Rate 69 ML/MIN Hemoglobin A1c 5.1 % Free Thyroxine 1.13 NG/DL Thyroid Stimulating Hormone 3rd Gen 1.230 uIU/ML Activated Partial Thromboplast Time 24.4 SEC 35.5 SEC Test 05/04/17 05:18 05/04/17 11:39 05/05/17 07:30 White Blood Count 10.8 TH/MM3 Red Blood Count 3.18 MIL/MM3 Hemoglobin 10.0 GM/DL Hematocrit 29.7 % Mean Corpuscular Volume 93.4 FL Mean Corpuscular Hemoglobin 31.4 PG Mean Corpuscular Hemoglobin Concent 33.7 % Red Cell Distribution Width 14.1 % Platelet Count 404 TH/MM3 Mean Platelet Volume 7.7 FL Prothrombin Time 11.1 SEC 11.8 SEC Prothromb Time International Ratio 1.1 RATIO 1.2 RATIO Activated Partial Thromboplast Time 45.7 SEC 41.1 SEC 30.1 SEC Imaging Last Impressions Chest X-Ray 04/29/17 0000 Signed Impressions: Service Date/Time: Saturday, April 29, 2017 19:23 - CONCLUSION: The lungs are clear. Stable right lateral pleural thickening. Andrey Virk MD Myocardial Perfusion Scan Nuc Med 04/28/17 0600 Signed Impressions: Service Date/Time: Friday, April 28, 2017 10:45 - CONCLUSION: 1. 20-30%% redistribution in the high anterolateral wall. Findings could represent ischemia at the watershed area between the LAD and circumflex. 2. Adequate wall motion throughout with an estimated ejection fraction of 61%% RISK CATEGORY: Intermediate (1-3%% Annual Mortality Rate) Gonzalez Tolliver MD Head CT 04/26/17 0000 Signed Impressions: Service Date/Time: Wednesday, April 26, 2017 13:09 - CONCLUSION: 2 old areas of encephalomalacia on the right side. No evidence of acute hemorrhage, edema, mass, or mass effect. Keanu Monahan MD CT Angiography 04/26/17 0000 Signed Impressions: Service Date/Time: Wednesday, April 26, 2017 11:29 - CONCLUSION: Normal examination with no evidence of pulmonary embolism. Minimal atelectasis scarring both lung bases. Keanu Monahan MD Objective Remarks GENERAL: IN No ACUTE distress. NO ACTIVE NASAL BLEEDING TODAY SKIN: There is an open ulcer with erythema at the base and surrounding the ulcer on the right upper back. HEAD: Atraumatic. Normocephalic. No temporal or scalp tenderness. EYES: Pupils equal round and reactive. Extraocular motions intact. No scleral icterus. No injection or drainage. ENT: Nose without bleeding, purulent drainage or septal hematoma. Throat without erythema, tonsillar hypertrophy or exudate. Uvula midline. Airway patent. NECK: Trachea midline. No JVD or lymphadenopathy. Supple, nontender, no meningeal signs. CARDIOVASCULAR: Normal rate. Regular rhythm. Mechanical click noted. S1, S2 NO S3 OR S4 NO HEAVE OR THRILL RESPIRATORY: Clear to auscultation. Breath sounds equal bilaterally. No wheezes , rales, or rhonchi. GASTROINTESTINAL: Abdomen soft, non-tender, nondistended. No hepato-splenomegaly , or palpable masses. No guarding. MUSCULOSKELETAL: Extremities without clubbing, cyanosis, or edema. No joint tenderness, effusion, or edema noted. NEUROLOGICAL: Awake and alert. Cranial nerves II through XII intact. Motor and sensory grossly within normal limits. Five out of 5 muscle strength in all muscle groups. Normal speech. PSYCH: Slightly flattened affect. Insight and judgment is good. Mood and behavior is appropriate Procedures NONE Medications and IVs Current Medications Vancomycin HCl 1000 mg/Sodium Chloride 250 ml @ 250 mls/hr ONCE ONCE IV Last administered on 04/24/17at 21:04; Start 04/24/17 at 19:30; Stop 04/24/17 at 20:29; Status DC Ketorolac Tromethamine (Toradol Inj) 30 mg ONCE ONCE IV PUSH Last administered on 04/24/17at 21:05; Start 04/24/17 at 20:15; Stop 04/24/17 at 20:16; Status DC Famotidine (Pepcid Inj) 20 mg ONCE IV PUSH Last administered on 04/24/17at 21:06 ; Start 04/24/17 at 20:15; Stop 04/28/17 at 16:04; Status DC Ondansetron HCl (Zofran Inj) 4 mg ONCE ONCE IV PUSH Last administered on at 20:15; Start 04/24/17 at 20:15; Stop 04/24/17 at 20:16; Status DC Sodium Chloride 1,000 ml @ 999 mls/hr BOLUS ONCE IV Last administered on at 21:05; Start 04/24/17 at 20:15; Stop 04/24/17 at 21:15; Status DC Sodium Chloride (NS Flush) 2 ml UNSCH PRN IV FLUSH FLUSH AFTER USING IV ACCESS ; Start 04/24/17 at 23:30 Sodium Chloride (NS Flush) 2 ml BID IV FLUSH Last administered on 05/05/17at 08: 52; Start 04/25/17 at 09:00 Acetaminophen (Tylenol) 650 mg Q4H PRN PO TEMP > 100.4 Last administered on 04/29 20:46; Start 04/24/17 at 23:30 Ondansetron HCl (Zofran Inj) 4 mg Q6H PRN IVP NAUSEA OR VOMITING Last administered on 04/29/17 01:40; Start 04/24/17 at 23:30 Naloxone HCl (Narcan Inj) 0.4 mg UNSCH PRN IV PUSH SEE LABEL COMMENTS; Start at 23:30 Magnesium Hydroxide (Milk Of Magnesia Liq) 30 ml Q12H PRN PO Mild constipation ; Start 04/24/17 at 23:30 Sennosides (Senokot) 17.2 mg Q12H PRN PO Moderate constipation; Start 04/24/17 at 23:30 Bisacodyl (Dulcolax Supp) 10 mg DAILY PRN RECTAL SEVERE CONSITIPATION; Start at 23:30 Lactulose (Lactulose Liq) 30 ml DAILY PRN PO SEVERE CONSITIPATION; Start at 23:30 Enoxaparin Sodium (Lovenox Inj) 100 mg DAILY SQ Last administered on 04/29/17 09:24; Start 04/25/17 at 09:00; Stop 05/04/17 at 18:35; Status DC Ferrous Sulfate (Ferrous Sulfate Liq) 15 mg BID PO Last administered on 08:52; Start 04/25/17 at 09:00 Fluoxetine HCl (PROzac) 10 mg DAILY PO Last administered on 05/05/17 08:51; Start 04/25/17 at 09:00 Metoprolol Succinate (Toprol Xl) 12.5 mg BID PO Last administered on 05/05/17 08:51; Start 04/25/17 at 09:00 Pantoprazole Sodium (Protonix) 40 mg DAILY PO Last administered on 05/05/17 08 :51; Start 04/25/17 at 09:00 Topiramate (Topamax) 25 mg BID PO Last administered on 05/05/17 08:51; Start 04/25/17 at 09:00 Oxycodone/ Acetaminophen (Percocet 5-325 Mg) 1 tab Q6H PRN PO PAIN 3-5 Last administered on 04/29/17at 20:46; Start 04/25/17 at 01:00; Stop 05/03/17 at 11:49; Status DC Vancomycin HCl 1000 mg/Sodium Chloride 250 ml @ 250 mls/hr Q12H IV Last administered on 04/27/17at 10:20; Start 04/25/17 at 09:00; Stop 04/27/17 at 11:55; Status DC Pharmacy Profile Note 0 ml @ 0 mls/hr UNSCH OTHER ; Start 04/25/17 at 01:00; Stop 04/27/17 at 11:55; Status DC Aspirin (Aspirin Chew) 81 mg DAILY CHEW Last administered on 04/30/17at 09:59; Start 04/25/17 at 15:00; Status Future Hold Lorazepam (Ativan) 1 mg BID PRN PO ANXIETY AND/OR AGITATION Last administered on 04/26/17 08:24; Start 04/25/17 at 12:00; Stop 04/26/17 at 12:24; Status DC Oxycodone/ Acetaminophen (Percocet 10-325 Mg) 1 tab Q4H PRN PO pain 6-10 Last administered on 05/05/17at 10:06; Start 04/25/17 at 14:30 Hydromorphone HCl (Dilaudid Pf Inj) 0.5 mg Q4H PRN IV PUSH breakthrough pain Last administered on 04/27/17 10:16; Start 04/25/17 at 14:30; Stop 04/27/17 at 11: 53; Status DC Miscellaneous Information SPECIFIC LAB TO BE DRAWN:DARI TROUGH DATE TO BE DR... ONCE ONCE .XX Last administered on 04/26/17at 10:10; Start 04/26/17 at 08: 45; Stop 04/26/17 at 08:46; Status DC Ferrous Sulfate (Ferrous Sulfate Liq) 15 mg BID PO ; Start 04/25/17 at 23:45; Status Cancel Nitroglycerin (Nitrostat Sl) 0.4 mg STK-MED ONCE SL ; Start 04/26/17 at 10:59; Stop 04/26/17 at 11:00; Status DC Iohexol (Omnipaque 350 Inj) 74 ml STK-MED ONCE IVCONTRAST Last administered on 04/26/17 11:32; Start 04/26/17 at 11:32; Stop 04/26/17 at 11:33; Status DC Lorazepam (Ativan) 1 mg TID PRN PO ANXIETY AND/OR AGITATION Last administered on 05/03/17at 20:40; Start 04/26/17 at 12:30 Albuterol/ Ipratropium (Duoneb Neb) 1 ampule Q2HR NEB PRN NEB dyspnea; Start at 14:15 Albuterol/ Ipratropium (Duoneb Neb) 1 ampule Q6HR WHILE AWAKE NEB NEB Last administered on 04/29/17at 19:57; Start 04/26/17 at 14:15; Stop 04/30/17 at 14:14; Status DC Regadenoson (Lexiscan Inj) 0.4 mg STK-MED ONCE .ROUTE Last administered on at 11:17; Start 04/28/17 at 11:17; Stop 04/28/17 at 11:18; Status DC Vancomycin HCl 1000 mg/Sodium Chloride 250 ml @ 250 mls/hr Q12H IV ; Start 04/29 at 17:15; Stop 04/29/17 at 17:54; Status DC Pharmacy Profile Note 0 ml @ 0 mls/hr UNSCH OTHER ; Start 04/29/17 at 17:15 Levofloxacin/ Dextrose 150 ml @ 100 mls/hr Q24H IV Last administered on at 17:15; Start 04/29/17 at 18:00; Stop 05/02/17 at 18:13; Status DC Vancomycin HCl 1000 mg/Sodium Chloride 250 ml @ 250 mls/hr Q8H IV Last administered on 05/05/17at 10:08; Start 04/29/17 at 18:00 Sodium Chloride 1,000 ml @ 999 mls/hr BOLUS ONCE IV Last administered on at 22:27; Start 04/29/17 at 21:45; Stop 04/29/17 at 22:45; Status DC Oxymetazoline HCl (Afrin 0.05% Kory Fanrock) 2 spray ONCE ONCE NASAL Last administered on 04/30/17at 05:48; Start 04/30/17 at 05:30; Stop 04/30/17 at 05:31; Status DC Miscellaneous Information SPECIFIC LAB TO BE ONCE ONCE .XX Last administered on 04/30/17at 17:45; Start 04/30/17 at 17:45; Stop 04/30/17 at 17:46; Status DC Miscellaneous Information SPECIFIC LAB TO BE DRAWN:VANCO TROUGH DATE TO BE ONCE ONCE .XX Last administered on 05/01/17at 17:45; Start 05/01/17 at 17: 45; Stop 05/01/17 at 17:46; Status DC Mupirocin (Bactroban 2% Cream) 1 applic TID OTHER ; Start 05/01/17 at 09:00; Stop 05/01/17 at 09:52; Status DC Mupirocin (Bactroban Nasal 2% Oint) 1 applic TID OTHER Last administered on 02/10at 08:50; Start 05/01/17 at 13:00 Heparin Sodium/ Dextrose 250 ml @ 9 mls/hr TITRATE PRN IV Coagulation Management Last administered on 05/01/17at 15:22; Start 05/01/17 at 13:15; Stop 12/11 at 12:29; Status DC Miscellaneous Information SPECIFIC LAB TO BE DRAWN:VANCO TROUGH DATE TO BE ONCE ONCE .XX Last administered on 05/02/17at 10:26; Start 05/02/17 at 09: 45; Stop 05/02/17 at 09:46; Status DC Heparin Sodium/ Dextrose 250 ml @ 14 mls/hr TITRATE PRN IV Coagulation Management Last administered on 05/04/17at 06:37; Start 05/03/17 at 11:30; Status Future Hold Warfarin Sodium (Coumadin) 5 mg DAILY@1600 PO Last administered on 05/03/17at 16 :26; Start 05/03/17 at 16:00; Stop 05/04/17 at 12:36; Status DC Oxycodone/ Acetaminophen (Percocet 5-325 Mg) 1 tab Q4H PRN PO PAIN 3-5; Start 05/03/17 at 12:00 Diphenhydramine HCl (Benadryl) 25 mg Q6H PRN PO ALLERGIES Last administered on 05/03/17at 20:39; Start 05/03/17 at 11:45 Methocarbamol (Robaxin) 500 mg Q8HR PRN PO SPASM; Start 05/03/17 at 12:00 Miscellaneous Information ALL NURSING DEPARTME... UNSCH PRN OTHER SEE LABEL COMMENTS; Start 05/03/17 at 13:00; Stop 05/04/17 at 12:59; Status DC Patient Medication Teaching (Coumadin Booklet) 1 ONCE ONCE OTHER Last administered on 05/03/17at 16:25; Start 05/03/17 at 16:00; Stop 05/03/17 at 16:01 ; Status DC Miscellaneous Information SPECIFIC LAB TO BE DRAWN:VANCO TROUGH DATE TO... ONCE ONCE .XX ; Start 05/06/17 at 09:45; Stop 05/06/17 at 09:46 Warfarin Sodium (Coumadin) 7.5 mg DAILY@1600 PO Last administered on 05/04/17at 16:08; Start 05/04/17 at 16:00 Enoxaparin Sodium (Lovenox Inj) 80 mg BID SQ Last administered on 05/05/17at 08: 52; Start 05/04/17 at 21:00 A/P Problem List: (1) Infected ulcer of skin ICD Code: L98.499 - Non-pressure chronic ulcer of skin of other sites with unspecified severity; L08.9 - Local infection of the skin and subcutaneous tissue, unspecified Status: Acute (2) H/O endocarditis ICD Code: Z86.79 - Personal history of other diseases of the circulatory system Status: Chronic (3) Systolic CHF, chronic ICD Code: I50.22 - Chronic systolic (congestive) heart failure Status: Chronic (4) History of heart valve replacement ICD Code: Z95.2 - Presence of prosthetic heart valve (5) Anxiety ICD Code: F41.9 - Anxiety disorder, unspecified Status: Acute (6) Epistaxis ICD Code: R04.0 - Epistaxis Plan: PT/PTT elevated. Platelets within normal range. Lovenox was held due to epistaxis. Resume IV heparin drip after epistaxis has resolved. Consult ENT. Monitor hemoglobin. Hemoglobin slowly trending down from 10.8-9.9-9.8-9.7. Transfuse as needed for hemoglobin less than 8 if active bleeding, symptomatic anemia, goal of hemoglobin more than 9. 3/8 appreciate ENT consultation, recommendations noted. At this time I will start the patient on IV heparin drip since the patient is a high risk for thrombus formation given mechanical valve. Heparin drip will be continued 24 hours and if there is no bleeding then the patient will likely be safe to be switched to Lovenox subcutaneously. I will order fibrinogen, LDH and haptoglobin to rule out DIC. SEEN BY ENT WANTS TO HOLD ANTICOAGULATION ONE MORE DAY WILL RESTART ON 3-10 WITH HEPARIN DRIP AND COUMADIN INCREASED TO 7.5 TODAY 05-04 RESOLVED Assessment and Plan Assessment and Plan Sepsis/fever Unclear etiology. Chest x-ray negative for infiltrates, UA negative. Suspect cellulitis of the right upper back. ID consulted. As procedure recommendations. Continue IV vancomycin IV Levaquin. Monitor blood cultures Monitor white blood cell count Check 2D echocardiogram. Sepsis seems to be improving with improved tachycardia and resolved leukocytosis. 05/01 continue IV antibiotics as per ID. The patient still having low-grade fevers, however these are improving. Blood cultures negative 2. Acute hypercarbic respiratory failure. Now resolved. As per medical records patient with CO2 retention which improved on repeat ABG. The patient was transitioned back from nonrebreather mask to nasal cannula. Etiology unclear. - wean O2 as tolerated. - standing and as needed nebs. - IS. - encourage ambulation. 04/29 much improved. Continue supplemental oxygen as tolerated. Acute chest pain Left-sided. Family history significant for CAD. EKG without acute ischemic changes. Trops peaked at 0.07. CTA negative. Cardiology consult appreciated. Stress test 04/28 showed: 20-30% redistribution in the high anterolateral wall; Findings could represent ischemia at the watershed area between the LAD and circumflex; Adequate wall motion throughout with an estimated ejection fraction of 61%. Discussed results with cardiology and radiology. Continue telemetry. 04/29 nuclear stress testing with 20-30% with distribution height anterolateral wall.. Findings could represent ischemia at the watershed area between the LAD and the circumflex. We will obtain chest x-ray since patient is having no fevers. Possible chest pain could be secondary to pneumonia versus skin lesion in the right upper back. 04/30 cardiology recommended medical management. Consider noncardiac chest pain etiologies. Back wound Reportedly started as reaction to Zosyn. Patient has been caring for it herself. Did not follow up outpatient with wound care. Wound nurse recommendations appreciated. Seems to be clean and without evidence of infection. Wound culture with normal heath. - wound care as recommended by wound nurse. -Initially started on IV vancomycin. - Pain control with a bowel regimen. Vancomycin discontinued. - follow blood cultures, NGTD. 04/01 I will consult infectious disease and start the patient IV outpatient antibiotic therapy given no fevers. Suspect cellulitis of the right upper back wound. Continue antibiotics as above. H/O endocarditis Recently treated at [facility] in [place] for bacteremia. - Repeat blood cultures. NGTD. - cardiology following. Systolic CHF, chronic No evidence of fluid overload at this time. Most recent echo in out system with normal EF. - Continue metoprolol. - Hold lisinopril and Aldactone due to low blood pressure. Resume when appropriate. History of heart valve replacement On Lovenox. States Coumadin did not work for her. 04/30 hold Lovenox due to recurrent epistaxis. Once epistaxis stops, will likely resume IV heparin drip. We will transition back to Lovenox once epistaxis has been evaluated by ENT. 05/01 start Iv heparin drip - if no further epistaxis the patient may be placed back on Lovenox.-- ON HOLD DUE TO NASAL BLEEDING RELOADING COUMADIN GOAL 2.0 TO 3.0 Migraines The patient stated that she has had migraines since she developed brain hematomas this past summer. - Pain control as needed. 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
--- NOTE | 2017-05-05 11:05 | HHI.IDPN ---
Note Infectious Disease Note Patient complains of swelling at the nose and eyelids. She has some Grainy excoriated lesions at the right side of the nose and also at the upper chin. No further nasal bleeding. Afebrile. Blood cultures have no growth. 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 The patient denies the use of IV drugs for years now. ALLERGIES: PIPERACILLIN/TAZOBACTAM, NAPROXEN, MORPHINE, GABAPENTIN, CODEINE, FISH-CONTAINING PRODUCTS. MEDICATIONS: Current Medications Medications (Trade) Dose Ordered Sig/Lele Route PRN Reason Start Time Stop Time Status Last Admin Dose Admin Sodium Chloride (NS Flush) 2 ml UNSCH PRN IV FLUSH FLUSH AFTER USING IV ACCESS 04/24/17 23:30 Sodium Chloride (NS Flush) 2 ml BID IV FLUSH 04/25/17 09:00 05/05/17 08:52 Acetaminophen (Tylenol) 650 mg Q4H PRN PO TEMP > 100.4 04/24/17 23:30 04/29/17 20:46 Ondansetron HCl (Zofran Inj) 4 mg Q6H PRN IVP NAUSEA OR VOMITING 04/24/17 23:30 04/29/17 01:40 Naloxone HCl (Narcan Inj) 0.4 mg UNSCH PRN IV PUSH SEE LABEL COMMENTS 04/24/17 23:30 Magnesium Hydroxide (Milk Of Magnesia Liq) 30 ml Q12H PRN PO Mild constipation 04/24/17 23:30 Sennosides (Senokot) 17.2 mg Q12H PRN PO Moderate constipation 04/24/17 23:30 Bisacodyl (Dulcolax Supp) 10 mg DAILY PRN RECTAL SEVERE CONSITIPATION 04/24/17 23:30 Lactulose (Lactulose Liq) 30 ml DAILY PRN PO SEVERE CONSITIPATION 04/24/17 23:30 Ferrous Sulfate (Ferrous Sulfate Liq) 15 mg BID PO 04/25/17 09:00 05/05/17 08:52 Fluoxetine HCl (PROzac) 10 mg DAILY PO 04/25/17 09:00 05/05/17 08:51 Metoprolol Succinate (Toprol Xl) 12.5 mg BID PO 04/25/17 09:00 05/05/17 08:51 Pantoprazole Sodium (Protonix) 40 mg DAILY PO 04/25/17 09:00 05/05/17 08:51 Topiramate (Topamax) 25 mg BID PO 04/25/17 09:00 05/05/17 08:51 Aspirin (Aspirin Chew) 81 mg DAILY CHEW 04/25/17 15:00 Future Hold 04/30/17 09:59 Oxycodone/ Acetaminophen (Percocet 10-325 Mg) 1 tab Q4H PRN PO pain 6-10 04/25/17 14:30 05/05/17 10:06 Lorazepam (Ativan) 1 mg TID PRN PO ANXIETY AND/OR AGITATION 04/26/17 12:30 05/03/17 20:40 Albuterol/ Ipratropium (Duoneb Neb) 1 ampule Q2HR NEB PRN NEB dyspnea 04/26/17 14:15 Pharmacy Profile Note 0 ml @ 0 mls/hr UNSCH OTHER 04/29/17 17:15 Vancomycin HCl 1000 mg/Sodium Chloride 250 ml @ 250 mls/hr Q8H IV 04/29/17 18:00 05/05/17 10:08 Mupirocin (Bactroban Nasal 2% Oint) 1 applic TID OTHER 05/01/17 13:00 05/05/17 08:50 Heparin Sodium/ Dextrose 250 ml @ 14 mls/hr TITRATE PRN IV Coagulation Management 05/03/17 11:30 Future Hold 05/04/17 06:37 Oxycodone/ Acetaminophen (Percocet 5-325 Mg) 1 tab Q4H PRN PO PAIN 3-5 05/03/17 12:00 Diphenhydramine HCl (Benadryl) 25 mg Q6H PRN PO ALLERGIES 05/03/17 11:45 05/03/17 20:39 Methocarbamol (Robaxin) 500 mg Q8HR PRN PO SPASM 05/03/17 12:00 Miscellaneous Information SPECIFIC LAB TO BE DRAWN:VANCO TROUGH DATE TO... ONCE ONCE .XX 05/06/17 09:45 05/06/17 09:46 Enoxaparin Sodium (Lovenox Inj) 80 mg BID SQ 05/04/17 21:00 05/05/17 08:52 Warfarin Sodium (Coumadin) 10 mg DAILY@1600 PO 05/05/17 16:00 UNV OBJECTIVE: Vital Signs Date Time Temp Pulse Resp B/P (MAP) Pulse Ox O2 Delivery O2 Flow Rate FiO2 05/05/17 08:23 98.8 65 17 126/58 (80) 99 05/05/17 04:15 99 05/05/17 04:00 98.1 64 18 119/54 (75) 95 05/05/17 00:00 98.3 67 18 126/70 (88) 99 05/04/17 20:02 78 05/04/17 20:00 98.6 64 18 128/72 (90) 99 05/04/17 17:31 66 05/04/17 16:00 97.5 67 18 130/61 (84) 98 05/04/17 14:45 74 05/04/17 12:00 99.6 82 18 132/63 (86) 98 05/04/17 11:41 66 Laboratory Tests Test 05/03/17 12:17 05/04/17 05:18 White Blood Count 8.7 TH/MM3 10.8 TH/MM3 Red Blood Count 2.97 MIL/MM3 3.18 MIL/MM3 Hemoglobin 9.4 GM/DL 10.0 GM/DL Hematocrit 27.8 % 29.7 % Mean Corpuscular Volume 93.5 FL 93.4 FL Mean Corpuscular Hemoglobin 31.6 PG 31.4 PG Mean Corpuscular Hemoglobin Concent 33.8 % 33.7 % Red Cell Distribution Width 14.3 % 14.1 % Platelet Count 349 TH/MM3 404 TH/MM3 Mean Platelet Volume 7.9 FL 7.7 FL Microbiology Date/Time Source Procedure Growth Status 05/03/17 17:15 Stool Stool Stool Occult Blood ([facility]) - Final HEMOCCULT POSITIVE Complete IMAGING: Chest X-Ray 04/29/17 0000 Signed Impressions: Service Date/Time: Saturday, April 29, 2017 19:23 - CONCLUSION: The lungs are clear. Stable right lateral pleural thickening. Andrey Virk MD Myocardial Perfusion Scan Nuc Med 04/28/17 0600 Signed Impressions: Service Date/Time: Friday, April 28, 2017 10:45 - CONCLUSION: 1. 20-30%% redistribution in the high anterolateral wall. Findings could represent ischemia at the watershed area between the LAD and circumflex. 2. Adequate wall motion throughout with an estimated ejection fraction of 61%% RISK CATEGORY: Intermediate (1-3%% Annual Mortality Rate) Gonzalez Tolliver MD Head CT 04/26/17 0000 Signed Impressions: Service Date/Time: Wednesday, April 26, 2017 13:09 - CONCLUSION: 2 old areas of encephalomalacia on the right side. No evidence of acute hemorrhage, edema, mass, or mass effect. Keanu Monahan MD CT Angiography 04/26/17 0000 Signed Impressions: Service Date/Time: Wednesday, April 26, 2017 11:29 - CONCLUSION: Normal examination with no evidence of pulmonary embolism. Minimal atelectasis scarring both lung bases. Keanu Monahan MD PHYSICAL EXAMINATION: GENERAL: No acute distress. No current nose bleeding. HEENT: The head is atraumatic. Eyelid swelling is decreased Patient now has only minimal swelling at the eyelids. Crop of grainy excoriations next to the right nasal bridge. Extraocular movements grossly intact. Pupils reactive to light. No icterus. Mild erythema around the nose labial folds. Oropharynx, moist mucosa without lesions. NECK: Supple without adenopathy. LUNGS: Clear breath sounds. HEART: II/ systolic ejection murmur at the upper right sternal border. Also, III/ systolic ejection murmur at the upper left sternal border. No rubs or gallops. ABDOMEN: Bowel sounds present, soft, no tenderness appreciated. BACK: There is less swelling and erythema swelling at the right upper back. EXTREMITIES: No clubbing or cyanosis or edema. SKIN: No diffuse rash. NEUROLOGIC: No gross focal findings. PSYCHIATRIC: Calm and cooperative. IMPRESSION: 1. Fever and leukocytosis in patient who has history of endocarditis of mitral and tricuspid valve. Temperature improved and white blood cell count is down to normal. Blood cultures remain negative. No evidence of endocarditis. 2. Probable sepsis. Blood cultures are negative. 3. Right upper back wound from prior allergic reaction to Zosyn, nonhealing. Difficulty healing could be a result of being on the blood thinners. 4. Epistaxis. Bleeding has stopped. RECOMMENDATIONS: Stop vancomycin. Patient can be discharged from ID standpoint. Continue with dressing changes to the right upper back. Sunny Rowley MD May 05, 2017 11:05
[2017-05-05] MEDS: WARFARIN SOD 10 MG TAB PO SCH (16:57)
[2017-05-05] MEDS ORDERED: diphenhydrAMINE HCL 2%/ZINC ACETATE 0.1% CREAM 30 APPLIC/30 GM TUBE TOPICAL ONE (22:30)
[2017-05-06] VITALS (10 sets, daily range): BP systolic 114–132; BP diastolic 53–63; PULSE 60–80; RESP 16–18; TEMP 98–100.2; O2SAT 94–99
[2017-05-06] MEDS: oxyCODONE/ACETAMINOPHEN 10 MG/325 MG TAB PO PRN ×3 (01:57→21:35)
[2017-05-06 07:23] LABS: AUTOMATED NEUTROPHIL # 3.8 TH/MM3 (1.8-7.7); BASOPHIL # 0.1 TH/MM3 (0-0.2); BASOPHIL % 1.2 % (0.0-2.0); EOSINOPHIL # 0.7 TH/MM3 (0-0.4); EOSINOPHIL % 7.8 % (0.0-4.0); HEMATOCRIT 27.8 % (35.0-46.0); HEMOGLOBIN 9.5 GM/DL (11.6-15.3); LYMPH % 40.2 % (9.0-44.0); LYMPHOCYTE # 3.7 TH/MM3 (1.0-4.8); MEAN CELL VOLUME 93.4 FL (80.0-100.0); MEAN CORPUSCULAR HEMOGLOBIN 32.1 PG (27.0-34.0); MEAN CORPUSCULAR HGB CONC 34.4 % (32.0-36.0); MEAN PLATELET VOLUME 7.5 FL (7.0-11.0); MONO % 9.1 % (0.0-8.0); MONOCYTE # 0.8 TH/MM3 (0-0.9); NEUT % 41.7 % (16.0-70.0); PLATELET COUNT 448 TH/MM3 (150-450); RED BLOOD COUNT 2.97 MIL/MM3 (4.00-5.30); RED CELL DISTRIBUTION WIDTH 13.9 % (11.6-17.2); WHITE BLOOD COUNT 9.1 TH/MM3 (4.0-11.0)
[2017-05-06 07:24] LABS: INTERNATIONAL NORMALIZED RATIO 1.3 RATIO
[2017-05-06 07:52] LABS: ALBUMIN 3.5 GM/DL (3.4-5.0); AST (GOT) 14 U/L (15-37); BICARBONATE 25.3 MEQ/L (21.0-32.0); BLOOD UREA NITROGEN 8 MG/DL (7-18); CALCIUM 8.6 MG/DL (8.5-10.1); CHLORIDE 108 MEQ/L (98-107); CREATININE 0.76 MG/DL (0.50-1.00); GLOMERULAR FILTRATION RATE 91 ML/MIN (>89); GLUCOSE,RANDOM 92 MG/DL (74-106); MAGNESIUM 2.2 MG/DL (1.5-2.5); SODIUM (NA) 139 MEQ/L (136-145)
[2017-05-06 07:55] LABS: ALKALINE PHOSPHATASE 149 U/L (45-117); ALT (GPT) 18 U/L (10-53); PHOSPHORUS 3.3 MG/DL (2.5-4.9); TOTAL BILIRUBIN ADULT 0.5 MG/DL (0.2-1.0); TOTAL PROTEIN 7.5 GM/DL (6.4-8.2)
[2017-05-06] MEDS: MUPIROCIN 2% OINT 1 APPLIC/GM SYR OTHER SCH ×3 (09:00→17:01)
[2017-05-06] MEDS: METOPROLOL SUCCINATE 25 MG EXTENDED RELEASE TAB PO SCH ×2 (09:41→21:28)
[2017-05-06] MEDS: TOPIRAMATE 25 MG TAB PO SCH ×2 (09:41→21:28)
[2017-05-06] MEDS: PANTOPRAZOLE SOD 40 MG DELAYED RELEASE TAB PO SCH (09:41)
[2017-05-06] MEDS: FERROUS SULFATE 15 MG/ML ELEMENTAL IRON 50 ML BTL PO SCH ×2 (09:41→21:28)
[2017-05-06] MEDS: FLUoxetine HCL 10 MG CAP PO SCH (09:41)
[2017-05-06] MEDS: SODIUM CHLORIDE 0.9% FLUSH 10 ML FLUSH IV FLUSH SCH ×2 (09:42→21:29)
[2017-05-06] MEDS: ENOXAPARIN SODIUM 80 MG/0.8 ML SYRINGE SQ SCH ×2 (09:42→21:28)
[2017-05-06] MEDS ORDERED: PHARMACY ORDERED LAB ONE (09:45)
--- NOTE | 2017-05-06 12:28 | HHI.PR ---
Subjective Remarks 3-9 STILL HAVING SOME INTERMITTENT NASAL BLEEDING AND NOW POSSIBLE RASH BY EYES AND RIGHT SIDE OF FACE-ONLY NEW RX IS MUPIROCIN DW PATIENT AND RN HOLD OF ON HEPARIN DRIP AND COUMADIN HOPEFULLY START TOMORROW IF NO MORE NASAL BLEEDING 3-10 WANTS PAIN MEDICATIONS WILL RESTART HEPARIN AND COUMADIN WANTS BENADRYL DW RN AND PT DAILY PT INR DW PATIENT AND RN AND CM NO MORE BLEEDING 3-11 INR IS ONLY 1.1 WILL INCREASE COUMADIN TO 7.5 DW RN AND PT NO BLEEDING RELOAD COUMADIN 3-12 CONTINUE LOADING INR HER VANCO WILL BE STOPPED BY ID NEEDS TO BE AT GOAL OF 2.0 TO 3.0 AT LEAST FOR MECHANICAL VALVE INCREASE COUMADIN TO 10MG PO DAILY 3-13 HAVING SOME BLEEDING FROM HER NOSE WILL NEED TO MONITOR THIS CONTINUE COUMADIN AND LOVENOX FOR MECHANICAL VALVES Objective Vitals Vital Signs Date Time Temp Pulse Resp B/P (MAP) Pulse Ox O2 Delivery O2 Flow Rate FiO2 05/06/17 10:00 98.6 60 18 114/53 (73) 99 05/06/17 08:00 60 05/06/17 07:56 98.4 69 18 132/61 (84) 95 05/06/17 04:46 98.8 18 115/58 (77) 95 05/06/17 01:17 99.3 69 18 132/62 (85) 95 05/06/17 00:30 80 05/05/17 20:52 98.7 67 18 135/61 (85) 94 05/05/17 20:30 63 05/05/17 16:48 98.7 63 16 117/56 (76) 97 05/05/17 12:45 99.5 66 18 135/62 (86) 96 I/O 05/05/17 05/05/17 05/05/17 05/06/17 05/06/17 05/06/17 07:00 15:00 23:00 07:00 15:00 23:00 Intake Total 250 ml Balance 250 ml IV Total 250 ml Result Diagram: 05/06/17 0635 05/06/17 0635 Other Results Laboratory Tests Test 05/03/17 19:30 05/04/17 05:18 05/04/17 11:39 05/05/17 07:30 Activated Partial Thromboplast Time 35.5 SEC 45.7 SEC 41.1 SEC 30.1 SEC White Blood Count 10.8 TH/MM3 Red Blood Count 3.18 MIL/MM3 Hemoglobin 10.0 GM/DL Hematocrit 29.7 % Mean Corpuscular Volume 93.4 FL Mean Corpuscular Hemoglobin 31.4 PG Mean Corpuscular Hemoglobin Concent 33.7 % Red Cell Distribution Width 14.1 % Platelet Count 404 TH/MM3 Mean Platelet Volume 7.7 FL Prothrombin Time 11.1 SEC 11.8 SEC Prothromb Time International Ratio 1.1 RATIO 1.2 RATIO Test 05/06/17 06:35 White Blood Count 9.1 TH/MM3 Red Blood Count 2.97 MIL/MM3 Hemoglobin 9.5 GM/DL Hematocrit 27.8 % Mean Corpuscular Volume 93.4 FL Mean Corpuscular Hemoglobin 32.1 PG Mean Corpuscular Hemoglobin Concent 34.4 % Red Cell Distribution Width 13.9 % Platelet Count 448 TH/MM3 Mean Platelet Volume 7.5 FL Neutrophils (%) (Auto) 41.7 % Lymphocytes (%) (Auto) 40.2 % Monocytes (%) (Auto) 9.1 % Eosinophils (%) (Auto) 7.8 % Basophils (%) (Auto) 1.2 % Neutrophils # (Auto) 3.8 TH/MM3 Lymphocytes # (Auto) 3.7 TH/MM3 Monocytes # (Auto) 0.8 TH/MM3 Eosinophils # (Auto) 0.7 TH/MM3 Basophils # (Auto) 0.1 TH/MM3 CBC Comment DIFF FINAL Differential Comment Prothrombin Time 13.0 SEC Prothromb Time International Ratio 1.3 RATIO Blood Urea Nitrogen 8 MG/DL Creatinine 0.76 MG/DL Random Glucose 92 MG/DL Total Protein 7.5 GM/DL Albumin 3.5 GM/DL Calcium Level 8.6 MG/DL Phosphorus Level 3.3 MG/DL Magnesium Level 2.2 MG/DL Alkaline Phosphatase 149 U/L Aspartate Amino Transf (AST/SGOT) 14 U/L Alanine Aminotransferase (ALT/SGPT) 18 U/L Total Bilirubin 0.5 MG/DL Sodium Level 139 MEQ/L Potassium Level 3.8 MEQ/L Chloride Level 108 MEQ/L Carbon Dioxide Level 25.3 MEQ/L Anion Gap 6 MEQ/L Estimat Glomerular Filtration Rate 91 ML/MIN Imaging Last Impressions Chest X-Ray 04/29/17 0000 Signed Impressions: Service Date/Time: Saturday, April 29, 2017 19:23 - CONCLUSION: The lungs are clear. Stable right lateral pleural thickening. Andrey Virk MD Myocardial Perfusion Scan [facility] 04/28/17 0600 Signed Impressions: Service Date/Time: Friday, April 28, 2017 10:45 - CONCLUSION: 1. 20-30%% redistribution in the high anterolateral wall. Findings could represent ischemia at the watershed area between the LAD and circumflex. 2. Adequate wall motion throughout with an estimated ejection fraction of 61%% RISK CATEGORY: Intermediate (1-3%% Annual Mortality Rate) Gonzalez Tolliver MD Head CT 04/26/17 0000 Signed Impressions: Service Date/Time: Wednesday, April 26, 2017 13:09 - CONCLUSION: 2 old areas of encephalomalacia on the right side. No evidence of acute hemorrhage, edema, mass, or mass effect. Keanu Monahan MD CT Angiography 04/26/17 0000 Signed Impressions: Service Date/Time: Wednesday, April 26, 2017 11:29 - CONCLUSION: Normal examination with no evidence of pulmonary embolism. Minimal atelectasis scarring both lung bases. Keanu Monahan MD Objective Remarks GENERAL: IN No ACUTE distress. NO ACTIVE NASAL BLEEDING TODAY SKIN: There is an open ulcer with erythema at the base and surrounding the ulcer on the right upper back. HEAD: Atraumatic. Normocephalic. No temporal or scalp tenderness. EYES: Pupils equal round and reactive. Extraocular motions intact. No scleral icterus. No injection or drainage. ENT: Nose without bleeding, purulent drainage or septal hematoma. Throat without erythema, tonsillar hypertrophy or exudate. Uvula midline. Airway patent. NECK: Trachea midline. No JVD or lymphadenopathy. Supple, nontender, no meningeal signs. CARDIOVASCULAR: Normal rate. Regular rhythm. Mechanical click noted. S1, S2 NO S3 OR S4 NO HEAVE OR THRILL RESPIRATORY: Clear to auscultation. Breath sounds equal bilaterally. No wheezes , rales, or rhonchi. GASTROINTESTINAL: Abdomen soft, non-tender, nondistended. No hepato-splenomegaly , or palpable masses. No guarding. MUSCULOSKELETAL: Extremities without clubbing, cyanosis, or edema. No joint tenderness, effusion, or edema noted. NEUROLOGICAL: Awake and alert. Cranial nerves II through XII intact. Motor and sensory grossly within normal limits. Five out of 5 muscle strength in all muscle groups. Normal speech. PSYCH: Slightly flattened affect. Insight and judgment is good. Mood and behavior is appropriate Procedures NONE Medications and IVs Current Medications Vancomycin HCl 1000 mg/Sodium Chloride 250 ml @ 250 mls/hr ONCE ONCE IV Last administered on 04/24/17at 21:04; Start 04/24/17 at 19:30; Stop 04/24/17 at 20:29; Status DC Ketorolac Tromethamine (Toradol Inj) 30 mg ONCE ONCE IV PUSH Last administered on 04/24/17at 21:05; Start 04/24/17 at 20:15; Stop 04/24/17 at 20:16; Status DC Famotidine (Pepcid Inj) 20 mg ONCE IV PUSH Last administered on 04/24/17at 21:06 ; Start 04/24/17 at 20:15; Stop 04/28/17 at 16:04; Status DC Ondansetron HCl (Zofran Inj) 4 mg ONCE ONCE IV PUSH Last administered on at 20:15; Start 04/24/17 at 20:15; Stop 04/24/17 at 20:16; Status DC Sodium Chloride 1,000 ml @ 999 mls/hr BOLUS ONCE IV Last administered on at 21:05; Start 04/24/17 at 20:15; Stop 04/24/17 at 21:15; Status DC Sodium Chloride (NS Flush) 2 ml UNSCH PRN IV FLUSH FLUSH AFTER USING IV ACCESS ; Start 04/24/17 at 23:30 Sodium Chloride (NS Flush) 2 ml BID IV FLUSH Last administered on 05/06/17at 09: 42; Start 04/25/17 at 09:00 Acetaminophen (Tylenol) 650 mg Q4H PRN PO TEMP > 100.4 Last administered on 04/29at 20:46; Start 04/24/17 at 23:30 Ondansetron HCl (Zofran Inj) 4 mg Q6H PRN IVP NAUSEA OR VOMITING Last administered on 04/29/17at 01:40; Start 04/24/17 at 23:30 Naloxone HCl (Narcan Inj) 0.4 mg UNSCH PRN IV PUSH SEE LABEL COMMENTS; Start at 23:30 Magnesium Hydroxide (Milk Of Magnesia Liq) 30 ml Q12H PRN PO Mild constipation ; Start 04/24/17 at 23:30 Sennosides (Senokot) 17.2 mg Q12H PRN PO Moderate constipation; Start 04/24/17 at 23:30 Bisacodyl (Dulcolax Supp) 10 mg DAILY PRN RECTAL SEVERE CONSITIPATION; Start at 23:30 Lactulose (Lactulose Liq) 30 ml DAILY PRN PO SEVERE CONSITIPATION; Start at 23:30 Enoxaparin Sodium (Lovenox Inj) 100 mg DAILY SQ Last administered on 04/29/17 09:24; Start 04/25/17 at 09:00; Stop 05/04/17 at 18:35; Status DC Ferrous Sulfate (Ferrous Sulfate Liq) 15 mg BID PO Last administered on 09:41; Start 04/25/17 at 09:00 Fluoxetine HCl (PROzac) 10 mg DAILY PO Last administered on 05/06/17at 09:41; Start 04/25/17 at 09:00 Metoprolol Succinate (Toprol Xl) 12.5 mg BID PO Last administered on 05/06/17 09:41; Start 04/25/17 at 09:00 Pantoprazole Sodium (Protonix) 40 mg DAILY PO Last administered on 05/06/17 09 :41; Start 04/25/17 at 09:00 Topiramate (Topamax) 25 mg BID PO Last administered on 05/06/17at 09:41; Start 04/25/17 at 09:00 Oxycodone/ Acetaminophen (Percocet 5-325 Mg) 1 tab Q6H PRN PO PAIN 3-5 Last administered on 04/29/17 20:46; Start 04/25/17 at 01:00; Stop 05/03/17 at 11:49; Status DC Vancomycin HCl 1000 mg/Sodium Chloride 250 ml @ 250 mls/hr Q12H IV Last administered on 04/27/17 10:20; Start 04/25/17 at 09:00; Stop 04/27/17 at 11:55; Status DC Pharmacy Profile Note 0 ml @ 0 mls/hr UNSCH OTHER ; Start 04/25/17 at 01:00; Stop 04/27/17 at 11:55; Status DC Aspirin (Aspirin Chew) 81 mg DAILY CHEW Last administered on 04/30/17at 09:59; Start 04/25/17 at 15:00; Status Future Hold Lorazepam (Ativan) 1 mg BID PRN PO ANXIETY AND/OR AGITATION Last administered on 04/26/17at 08:24; Start 04/25/17 at 12:00; Stop 04/26/17 at 12:24; Status DC Oxycodone/ Acetaminophen (Percocet 10-325 Mg) 1 tab Q4H PRN PO pain 6-10 Last administered on 05/06/17at 01:57; Start 04/25/17 at 14:30 Hydromorphone HCl (Dilaudid Pf Inj) 0.5 mg Q4H PRN IV PUSH breakthrough pain Last administered on 04/27/17at 10:16; Start 04/25/17 at 14:30; Stop 04/27/17 at 11: 53; Status DC Miscellaneous Information SPECIFIC LAB TO BE DRAWN:[facility] TROUGH DATE TO BE DR... ONCE ONCE .XX Last administered on 04/26/17at 10:10; Start 04/26/17 at 08: 45; Stop 04/26/17 at 08:46; Status DC Ferrous Sulfate (Ferrous Sulfate Liq) 15 mg BID PO ; Start 04/25/17 at 23:45; Status Cancel Nitroglycerin (Nitrostat Sl) 0.4 mg STK-MED ONCE SL ; Start 04/26/17 at 10:59; Stop 04/26/17 at 11:00; Status DC Iohexol (Omnipaque 350 Inj) 74 ml STK-MED ONCE IVCONTRAST Last administered on 04/26/17at 11:32; Start 04/26/17 at 11:32; Stop 04/26/17 at 11:33; Status DC Lorazepam (Ativan) 1 mg TID PRN PO ANXIETY AND/OR AGITATION Last administered on 05/03/17at 20:40; Start 04/26/17 at 12:30 Albuterol/ Ipratropium (Duoneb Neb) 1 ampule Q2HR NEB PRN NEB dyspnea; Start at 14:15 Albuterol/ Ipratropium (Duoneb Neb) 1 ampule Q6HR WHILE AWAKE NEB NEB Last administered on 04/29/17at 19:57; Start 04/26/17 at 14:15; Stop 04/30/17 at 14:14; Status DC Regadenoson (Lexiscan Inj) 0.4 mg STK-MED ONCE .ROUTE Last administered on at 11:17; Start 04/28/17 at 11:17; Stop 04/28/17 at 11:18; Status DC Vancomycin HCl 1000 mg/Sodium Chloride 250 ml @ 250 mls/hr Q12H IV ; Start 04/29 at 17:15; Stop 04/29/17 at 17:54; Status DC Pharmacy Profile Note 0 ml @ 0 mls/hr UNSCH OTHER ; Start 04/29/17 at 17:15; Stop 05/05/17 at 10:57; Status DC Levofloxacin/ Dextrose 150 ml @ 100 mls/hr Q24H IV Last administered on at 17:15; Start 04/29/17 at 18:00; Stop 05/02/17 at 18:13; Status DC Vancomycin HCl 1000 mg/Sodium Chloride 250 ml @ 250 mls/hr Q8H IV Last administered on 05/05/17at 10:08; Start 04/29/17 at 18:00; Stop 05/05/17 at 10:57 ; Status DC Sodium Chloride 1,000 ml @ 999 mls/hr BOLUS ONCE IV Last administered on at 22:27; Start 04/29/17 at 21:45; Stop 04/29/17 at 22:45; Status DC Oxymetazoline HCl (Afrin 0.05% [place]) 2 spray ONCE ONCE NASAL Last administered on 04/30/17at 05:48; Start 04/30/17 at 05:30; Stop 04/30/17 at 05:31; Status DC Miscellaneous Information SPECIFIC LAB TO BE KAYLEE... ONCE ONCE .XX Last administered on 04/30/17at 17:45; Start 04/30/17 at 17:45; Stop 04/30/17 at 17:46; Status DC Miscellaneous Information SPECIFIC LAB TO BE DRAWN:[facility] TROUGH DATE TO BE [email or web address] ONCE ONCE .XX Last administered on 05/01/17at 17:45; Start 05/01/17 at 17: 45; Stop 05/01/17 at 17:46; Status DC Mupirocin (Bactroban 2% Cream) 1 applic TID OTHER ; Start 05/01/17 at 09:00; Stop 05/01/17 at 09:52; Status DC Mupirocin (Bactroban Nasal 2% Oint) 1 applic TID OTHER Last administered on 02/10at 08:50; Start 05/01/17 at 13:00 Heparin Sodium/ Dextrose 250 ml @ 9 mls/hr TITRATE PRN IV Coagulation Management Last administered on 05/01/17at 15:22; Start 05/01/17 at 13:15; Stop 12/11 at 12:29; Status DC Miscellaneous Information SPECIFIC LAB TO BE DRAWN:[facility] TROUGH DATE TO BE DR... ONCE ONCE .XX Last administered on 05/02/17at 10:26; Start 05/02/17 at 09: 45; Stop 05/02/17 at 09:46; Status DC Heparin Sodium/ Dextrose 250 ml @ 14 mls/hr TITRATE PRN IV Coagulation Management Last administered on 05/04/17at 06:37; Start 05/03/17 at 11:30; Status Future Hold Warfarin Sodium (Coumadin) 5 mg DAILY@1600 PO Last administered on 05/03/17at 16 :26; Start 05/03/17 at 16:00; Stop 05/04/17 at 12:36; Status DC Oxycodone/ Acetaminophen (Percocet 5-325 Mg) 1 tab Q4H PRN PO PAIN 3-5; Start 05/03/17 at 12:00 Diphenhydramine HCl (Benadryl) 25 mg Q6H PRN PO ALLERGIES Last administered on 05/03/17at 20:39; Start 05/03/17 at 11:45 Methocarbamol (Robaxin) 500 mg Q8HR PRN PO SPASM; Start 05/03/17 at 12:00 Miscellaneous Information ALL NURSING DEPARTME... UNSCH PRN OTHER SEE LABEL COMMENTS; Start 05/03/17 at 13:00; Stop 05/04/17 at 12:59; Status DC Patient Medication Teaching (Coumadin Booklet) 1 ONCE ONCE OTHER Last administered on 05/03/17at 16:25; Start 05/03/17 at 16:00; Stop 05/03/17 at 16:01 ; Status DC Miscellaneous Information SPECIFIC LAB TO BE DRAWN:[facility] TROUGH DATE TO... ONCE ONCE .XX ; Start 05/06/17 at 09:45; Stop 05/06/17 at 09:45; Status DC Warfarin Sodium (Coumadin) 7.5 mg DAILY@1600 PO Last administered on 05/04/17at 16:08; Start 05/04/17 at 16:00; Stop 05/05/17 at 10:46; Status DC Enoxaparin Sodium (Lovenox Inj) 80 mg BID SQ Last administered on 05/06/17at 09: 42; Start 05/04/17 at 21:00 Warfarin Sodium (Coumadin) 10 mg DAILY@1600 PO Last administered on 05/05/17at 16:57; Start 05/05/17 at 16:00 Diphenhydramine HCl (Benadryl 2% Cream) 1 applic ONCE ONCE TOPICAL Last administered on 05/05/17at 23:22; Start 05/05/17 at 22:30; Stop 05/05/17 at 22:31 ; Status DC A/P Problem List: (1) Infected ulcer of skin ICD Code: L98.499 - Non-pressure chronic ulcer of skin of other sites with unspecified severity; L08.9 - Local infection of the skin and subcutaneous tissue, unspecified Status: Acute (2) H/O endocarditis ICD Code: Z86.79 - Personal history of other diseases of the circulatory system Status: Chronic (3) Systolic CHF, chronic ICD Code: I50.22 - Chronic systolic (congestive) heart failure Status: Chronic (4) History of heart valve replacement ICD Code: Z95.2 - Presence of prosthetic heart valve (5) Anxiety ICD Code: F41.9 - Anxiety disorder, unspecified Status: Acute (6) Epistaxis ICD Code: R04.0 - Epistaxis Plan: PT/PTT elevated. Platelets within normal range. Lovenox was held due to epistaxis. Resume IV heparin drip after epistaxis has resolved. Consult ENT. Monitor hemoglobin. Hemoglobin slowly trending down from 10.8-9.9-9.8-9.7. Transfuse as needed for hemoglobin less than 8 if active bleeding, symptomatic anemia, goal of hemoglobin more than 9. 3/8 appreciate ENT consultation, recommendations noted. At this time I will start the patient on IV heparin drip since the patient is a high risk for thrombus formation given mechanical valve. Heparin drip will be continued 24 hours and if there is no bleeding then the patient will likely be safe to be switched to Lovenox subcutaneously. I will order fibrinogen, LDH and haptoglobin to rule out DIC. SEEN BY ENT WANTS TO HOLD ANTICOAGULATION ONE MORE DAY WILL RESTART ON 05-03 WITH HEPARIN DRIP AND COUMADIN INCREASED TO 7.5 TODAY 05-04 RESOLVED SOME INTERMITTENT BLEEDING ON 05-05 AND 05-06 MONITOR AM LABS Assessment and Plan Assessment and Plan Sepsis/fever Unclear etiology. Chest x-ray negative for infiltrates, UA negative. Suspect cellulitis of the right upper back. ID consulted. As procedure recommendations. Continue IV vancomycin IV Levaquin. Monitor blood cultures Monitor white blood cell count Check 2D echocardiogram. Sepsis seems to be improving with improved tachycardia and resolved leukocytosis. 05/01 continue IV antibiotics as per ID. The patient still having low-grade fevers, however these are improving. Blood cultures negative 2. Acute hypercarbic respiratory failure. Now resolved. As per medical records patient with CO2 retention which improved on repeat ABG. The patient was transitioned back from nonrebreather mask to nasal cannula. Etiology unclear. - wean O2 as tolerated. - standing and as needed nebs. - IS. - encourage ambulation. 04/29 much improved. Continue supplemental oxygen as tolerated. Acute chest pain Left-sided. Family history significant for CAD. EKG without acute ischemic changes. Trops peaked at 0.07. CTA negative. Cardiology consult appreciated. Stress test 04/28 showed: 20-30% redistribution in the high anterolateral wall; Findings could represent ischemia at the watershed area between the LAD and circumflex; Adequate wall motion throughout with an estimated ejection fraction of 61%. Discussed results with cardiology and radiology. Continue telemetry. 04/29 nuclear stress testing with 20-30% with distribution height anterolateral wall.. Findings could represent ischemia at the watershed area between the LAD and the circumflex. We will obtain chest x-ray since patient is having no fevers. Possible chest pain could be secondary to pneumonia versus skin lesion in the right upper back. 04/30 cardiology recommended medical management. Consider noncardiac chest pain etiologies. Back wound Reportedly started as reaction to Zosyn. Patient has been caring for it herself. Did not follow up outpatient with wound care. Wound nurse recommendations appreciated. Seems to be clean and without evidence of infection. Wound culture with normal heath. - wound care as recommended by wound nurse. -Initially started on IV vancomycin. - Pain control with a bowel regimen. Vancomycin discontinued. - follow blood cultures, NGTD. 04/01 I will consult infectious disease and start the patient IV outpatient antibiotic therapy given no fevers. Suspect cellulitis of the right upper back wound. Continue antibiotics as above. H/O endocarditis Recently treated at [facility] in [place] for bacteremia. - Repeat blood cultures. NGTD. - cardiology following. Systolic CHF, chronic No evidence of fluid overload at this time. Most recent echo in out system with normal EF. - Continue metoprolol. - Hold lisinopril and Aldactone due to low blood pressure. Resume when appropriate. History of heart valve replacement On Lovenox. States Coumadin did not work for her. 04/30 hold Lovenox due to recurrent epistaxis. Once epistaxis stops, will likely resume IV heparin drip. We will transition back to Lovenox once epistaxis has been evaluated by ENT. 05/01 start Iv heparin drip - if no further epistaxis the patient may be placed back on Lovenox.-- ON HOLD DUE TO NASAL BLEEDING RELOADING COUMADIN GOAL 2.0 TO 3.0 Migraines The patient stated that she has had migraines since she developed brain hematomas this past summer. - Pain control as needed. DRUG SEEKING BEHAVIOR- WANTS PAIN MEDICATIONS AND BENADRYL PPx: ON HOLD AT THIS TIME Discharge Planning PENDING ID CLEARANCE AND BACK ON COUMADIN FOR MECHANICAL VALVE Problem Qualifiers (1) Infected ulcer of skin: Qualified Codes: L98.491 - Non-pressure chronic ulcer of skin of other sites limited to breakdown of skin; L08.9 - Local infection of the skin and subcutaneous tissue, unspecified Kj Burton DO May 06, 2017 12:28
[2017-05-06 16:15] LABS: BILIRUBIN, URINE NEG (NEG); BLOOD, URINE TRACE (NEG); GLUCOSE,URINE NEG (NEG); KETONE, URINE NEG (NEG); NITRITE,URINE NEG (NEG); SQUAMOUS EPITHELIAL CELL URINE 2 /hpf (0-5); URINE COLOR YELLOW (YELLW/STRAW); URINE LEUKOCYTE ESTERASE NEG (NEG)
[2017-05-06] MEDS: WARFARIN SOD 10 MG TAB PO SCH (17:01)
[2017-05-07] VITALS (9 sets, daily range): BP systolic 109–141; BP diastolic 55–69; PULSE 62–79; RESP 18–20; TEMP 98.7–101.9; O2SAT 90–98
[2017-05-07] MEDS: ACETAMINOPHEN 325 MG TAB PO PRN ×2 (00:46→04:25)
[2017-05-07 09:14] LABS: AUTOMATED NEUTROPHIL # 4.9 TH/MM3 (1.8-7.7); BASOPHIL # 0.1 TH/MM3 (0-0.2); BASOPHIL % 1.4 % (0.0-2.0); EOSINOPHIL # 0.4 TH/MM3 (0-0.4); EOSINOPHIL % 5.1 % (0.0-4.0); HEMOGLOBIN 10.1 GM/DL (11.6-15.3); LYMPHOCYTE # 2.6 TH/MM3 (1.0-4.8); MEAN CELL VOLUME 91.7 FL (80.0-100.0); MEAN CORPUSCULAR HGB CONC 32.7 % (32.0-36.0); MEAN PLATELET VOLUME 7.3 FL (7.0-11.0); MONO % 6.7 % (0.0-8.0); MONOCYTE # 0.6 TH/MM3 (0-0.9); NEUT % 56.8 % (16.0-70.0); PLATELET COUNT 533 TH/MM3 (150-450); RED BLOOD COUNT 3.38 MIL/MM3 (4.00-5.30); RED CELL DISTRIBUTION WIDTH 14.1 % (11.6-17.2); WHITE BLOOD COUNT 8.7 TH/MM3 (4.0-11.0)
[2017-05-07 09:15] LABS: INTERNATIONAL NORMALIZED RATIO 1.7 RATIO; PROTHROMBIN TIME - PATIENT 17.2 SEC (9.8-11.6)
[2017-05-07 09:29] LABS: ALBUMIN 3.4 GM/DL (3.4-5.0); AST (GOT) 11 U/L (15-37); BICARBONATE 22.4 MEQ/L (21.0-32.0); BLOOD UREA NITROGEN 8 MG/DL (7-18); CALCIUM 8.8 MG/DL (8.5-10.1); CHLORIDE 106 MEQ/L (98-107); GLOMERULAR FILTRATION RATE 75 ML/MIN (>89); GLUCOSE,RANDOM 83 MG/DL (74-106); MAGNESIUM 2.1 MG/DL (1.5-2.5); SODIUM (NA) 138 MEQ/L (136-145)
[2017-05-07 09:30] LABS: ALT (GPT) 15 U/L (10-53); PHOSPHORUS 3.4 MG/DL (2.5-4.9)
[2017-05-07 09:32] LABS: ALKALINE PHOSPHATASE 156 U/L (45-117); TOTAL BILIRUBIN ADULT 0.6 MG/DL (0.2-1.0); TOTAL PROTEIN 7.7 GM/DL (6.4-8.2)
[2017-05-07] MEDS: TOPIRAMATE 25 MG TAB PO SCH ×2 (09:38→21:26)
[2017-05-07] MEDS: PANTOPRAZOLE SOD 40 MG DELAYED RELEASE TAB PO SCH (09:38)
[2017-05-07] MEDS: METOPROLOL SUCCINATE 25 MG EXTENDED RELEASE TAB PO SCH ×2 (09:38→21:26)
[2017-05-07] MEDS: oxyCODONE/ACETAMINOPHEN 10 MG/325 MG TAB PO PRN ×2 (09:39→21:26)
[2017-05-07] MEDS: ENOXAPARIN SODIUM 80 MG/0.8 ML SYRINGE SQ SCH ×2 (09:39→21:27)
[2017-05-07] MEDS: FLUoxetine HCL 10 MG CAP PO SCH (09:40)
[2017-05-07] MEDS: SODIUM CHLORIDE 0.9% FLUSH 10 ML FLUSH IV FLUSH SCH ×2 (09:40→21:30)
[2017-05-07] MEDS: FERROUS SULFATE 15 MG/ML ELEMENTAL IRON 50 ML BTL PO SCH ×2 (09:40→21:26)
[2017-05-07] MEDS: MUPIROCIN 2% OINT 1 APPLIC/GM SYR OTHER SCH ×3 (09:40→18:00)
--- NOTE | 2017-05-07 12:03 | HHI.PR ---
Subjective Remarks 3-9 STILL HAVING SOME INTERMITTENT NASAL BLEEDING AND NOW POSSIBLE RASH BY EYES AND RIGHT SIDE OF FACE-ONLY NEW RX IS MUPIROCIN DW PATIENT AND RN HOLD OF ON HEPARIN DRIP AND COUMADIN HOPEFULLY START TOMORROW IF NO MORE NASAL BLEEDING 3-10 WANTS PAIN MEDICATIONS WILL RESTART HEPARIN AND COUMADIN WANTS BENADRYL DW RN AND PT DAILY PT INR DW PATIENT AND RN AND CM NO MORE BLEEDING 3-11 INR IS ONLY 1.1 WILL INCREASE COUMADIN TO 7.5 DW RN AND PT NO BLEEDING RELOAD COUMADIN 3-12 CONTINUE LOADING INR HER VANCO WILL BE STOPPED BY ID NEEDS TO BE AT GOAL OF 2.0 TO 3.0 AT LEAST FOR MECHANICAL VALVE INCREASE COUMADIN TO 10MG PO DAILY 3-13 HAVING SOME BLEEDING FROM HER NOSE WILL NEED TO MONITOR THIS CONTINUE COUMADIN AND LOVENOX FOR MECHANICAL VALVES 3-14 patient continues to pick at her face INR IS 1.7 HOPEFULLY GREATER THAN 2.0 TOMORROW WILL DECREASE COUMADIN TO 5MG AM LABS Objective Vitals Vital Signs Date Time Temp Pulse Resp B/P (MAP) Pulse Ox O2 Delivery O2 Flow Rate FiO2 05/07/17 11:16 100.8 71 20 137/61 (86) 95 05/07/17 10:15 72 05/07/17 08:03 100.2 75 20 129/57 (81) 96 05/07/17 05:32 101.0 05/07/17 05:30 101.9 75 18 127/62 (83) 97 05/07/17 00:29 100.5 79 18 141/69 (93) 90 05/06/17 20:58 100.2 73 18 132/63 (86) 95 05/06/17 18:01 66 05/06/17 16:36 98.6 68 16 124/54 (77) 94 05/06/17 13:46 18 05/06/17 12:00 98.0 60 18 114/53 (73) 99 I/O 05/06/17 05/06/17 05/06/17 05/07/17 05/07/17 05/07/17 07:00 15:00 23:00 07:00 15:00 23:00 Intake Total 240 ml Balance 240 ml Intake Oral 240 ml Result Diagram: 05/07/1782405/07/17824 Other Results Laboratory Tests Test 05/05/17 07:30 05/06/17 06:35 05/06/17 15:55 05/07/17 08:25 Prothrombin Time 11.8 SEC 13.0 SEC 17.2 SEC Prothromb Time International Ratio 1.2 RATIO 1.3 RATIO 1.7 RATIO Activated Partial Thromboplast Time 30.1 SEC White Blood Count 9.1 TH/MM3 8.7 TH/MM3 Red Blood Count 2.97 MIL/MM3 3.38 MIL/MM3 Hemoglobin 9.5 GM/DL 10.1 GM/DL Hematocrit 27.8 % 31.0 % Mean Corpuscular Volume 93.4 FL 91.7 FL Mean Corpuscular Hemoglobin 32.1 PG 30.0 PG Mean Corpuscular Hemoglobin Concent 34.4 % 32.7 % Red Cell Distribution Width 13.9 % 14.1 % Platelet Count 448 TH/MM3 533 TH/MM3 Mean Platelet Volume 7.5 FL 7.3 FL Neutrophils (%) (Auto) 41.7 % 56.8 % Lymphocytes (%) (Auto) 40.2 % 30.0 % Monocytes (%) (Auto) 9.1 % 6.7 % Eosinophils (%) (Auto) 7.8 % 5.1 % Basophils (%) (Auto) 1.2 % 1.4 % Neutrophils # (Auto) 3.8 TH/MM3 4.9 TH/MM3 Lymphocytes # (Auto) 3.7 TH/MM3 2.6 TH/MM3 Monocytes # (Auto) 0.8 TH/MM3 0.6 TH/MM3 Eosinophils # (Auto) 0.7 TH/MM3 0.4 TH/MM3 Basophils # (Auto) 0.1 TH/MM3 0.1 TH/MM3 CBC Comment DIFF FINAL DIFF FINAL Differential Comment Blood Urea Nitrogen 8 MG/DL 8 MG/DL Creatinine 0.76 MG/DL 0.90 MG/DL Random Glucose 92 MG/DL 83 MG/DL Total Protein 7.5 GM/DL 7.7 GM/DL Albumin 3.5 GM/DL 3.4 GM/DL Calcium Level 8.6 MG/DL 8.8 MG/DL Phosphorus Level 3.3 MG/DL 3.4 MG/DL Magnesium Level 2.2 MG/DL 2.1 MG/DL Alkaline Phosphatase 149 U/L 156 U/L Aspartate Amino Transf (AST/SGOT) 14 U/L 11 U/L Alanine Aminotransferase (ALT/SGPT) 18 U/L 15 U/L Total Bilirubin 0.5 MG/DL 0.6 MG/DL Sodium Level 139 MEQ/L 138 MEQ/L Potassium Level 3.8 MEQ/L 3.8 MEQ/L Chloride Level 108 MEQ/L 106 MEQ/L Carbon Dioxide Level 25.3 MEQ/L 22.4 MEQ/L Anion Gap 6 MEQ/L 10 MEQ/L Estimat Glomerular Filtration Rate 91 ML/MIN 75 ML/MIN Urine Color YELLOW Urine Turbidity CLEAR Urine pH 6.0 Urine Specific Mason 1.018 Urine Protein NEG mg/dL Urine Glucose (UA) NEG mg/dL Urine Ketones NEG mg/dL Urine Occult Blood TRACE Urine Nitrite NEG Urine Bilirubin NEG Urine Urobilinogen LESS THAN 2.0 MG/DL Urine Leukocyte Esterase NEG Urine RBC 1 /hpf Urine WBC 1 /hpf Urine Squamous Epithelial Cells 2 /hpf Microscopic Urinalysis Comment CULT NOT INDICATED Urine Opiates Screen POS Urine Barbiturates Screen NEG Urine Amphetamines Screen NEG Urine Benzodiazepines Screen NEG Urine Cocaine Screen NEG Urine Cannabinoids Screen NEG Imaging Last Impressions Chest X-Ray 04/29/17 0000 Signed Impressions: Service Date/Time: Saturday, April 29, 2017 19:23 - CONCLUSION: The lungs are clear. Stable right lateral pleural thickening. Andrey Virk MD Myocardial Perfusion Scan Nuc Med 04/28/17 0600 Signed Impressions: Service Date/Time: Friday, April 28, 2017 10:45 - CONCLUSION: 1. 20-30%% redistribution in the high anterolateral wall. Findings could represent ischemia at the watershed area between the LAD and circumflex. 2. Adequate wall motion throughout with an estimated ejection fraction of 61%% RISK CATEGORY: Intermediate (1-3%% Annual Mortality Rate) Gonzalez Tolliver MD Head CT 04/26/17 0000 Signed Impressions: Service Date/Time: Wednesday, April 26, 2017 13:09 - CONCLUSION: 2 old areas of encephalomalacia on the right side. No evidence of acute hemorrhage, edema, mass, or mass effect. Keanu Monahan MD CT Angiography 04/26/17 0000 Signed Impressions: Service Date/Time: Wednesday, April 26, 2017 11:29 - CONCLUSION: Normal examination with no evidence of pulmonary embolism. Minimal atelectasis scarring both lung bases. Keanu Monahan MD Objective Remarks GENERAL: IN No ACUTE distress. NO ACTIVE NASAL BLEEDING TODAY SKIN: There is an open ulcer with erythema at the base and surrounding the ulcer on the right upper back. Has been picking around her eyes and around her nose on her face and her cheek HEAD: Atraumatic. Normocephalic. No temporal or scalp tenderness. EYES: Pupils equal round and reactive. Extraocular motions intact. No scleral icterus. No injection or drainage. ENT: Nose without bleeding, purulent drainage or septal hematoma. Throat without erythema, tonsillar hypertrophy or exudate. Uvula midline. Airway patent. Patient has been picking around her eyes and around her nose and on her face and her cheeks NECK: Trachea midline. No JVD or lymphadenopathy. Supple, nontender, no meningeal signs. CARDIOVASCULAR: Normal rate. Regular rhythm. Mechanical click noted. S1, S2 NO S3 OR S4 NO HEAVE OR THRILL RESPIRATORY: Clear to auscultation. Breath sounds equal bilaterally. No wheezes , rales, or rhonchi. GASTROINTESTINAL: Abdomen soft, non-tender, nondistended. No hepato-splenomegaly , or palpable masses. No guarding. MUSCULOSKELETAL: Extremities without clubbing, cyanosis, or edema. No joint tenderness, effusion, or edema noted. NEUROLOGICAL: Awake and alert. Cranial nerves II through XII intact. Motor and sensory grossly within normal limits. Five out of 5 muscle strength in all muscle groups. Normal speech. PSYCH: Slightly flattened affect. Insight and judgment is abnormal. Mood and behavior is INappropriate Procedures NONE Medications and IVs Current Medications Vancomycin HCl 1000 mg/Sodium Chloride 250 ml @ 250 mls/hr ONCE ONCE IV Last administered on 04/24/17at 21:04; Start 04/24/17 at 19:30; Stop 04/24/17 at 20:29; Status DC Ketorolac Tromethamine (Toradol Inj) 30 mg ONCE ONCE IV PUSH Last administered on 04/24/17at 21:05; Start 04/24/17 at 20:15; Stop 04/24/17 at 20:16; Status DC Famotidine (Pepcid Inj) 20 mg ONCE IV PUSH Last administered on 04/24/17at 21:06 ; Start 04/24/17 at 20:15; Stop 04/28/17 at 16:04; Status DC Ondansetron HCl (Zofran Inj) 4 mg ONCE ONCE IV PUSH Last administered on at 20:15; Start 04/24/17 at 20:15; Stop 04/24/17 at 20:16; Status DC Sodium Chloride 1,000 ml @ 999 mls/hr BOLUS ONCE IV Last administered on at 21:05; Start 04/24/17 at 20:15; Stop 04/24/17 at 21:15; Status DC Sodium Chloride (NS Flush) 2 ml UNSCH PRN IV FLUSH FLUSH AFTER USING IV ACCESS ; Start 04/24/17 at 23:30 Sodium Chloride (NS Flush) 2 ml BID IV FLUSH Last administered on 05/07/17at 09: 40; Start 04/25/17 at 09:00 Acetaminophen (Tylenol) 650 mg Q4H PRN PO TEMP > 100.4 Last administered on at 04:25; Start 04/24/17 at 23:30 Ondansetron HCl (Zofran Inj) 4 mg Q6H PRN IVP NAUSEA OR VOMITING Last administered on 04/29/17at 01:40; Start 04/24/17 at 23:30 Naloxone HCl (Narcan Inj) 0.4 mg UNSCH PRN IV PUSH SEE LABEL COMMENTS; Start at 23:30 Magnesium Hydroxide (Milk Of Magnesia Liq) 30 ml Q12H PRN PO Mild constipation ; Start 04/24/17 at 23:30 Sennosides (Senokot) 17.2 mg Q12H PRN PO Moderate constipation; Start 04/24/17 at 23:30 Bisacodyl (Dulcolax Supp) 10 mg DAILY PRN RECTAL SEVERE CONSITIPATION; Start at 23:30 Lactulose (Lactulose Liq) 30 ml DAILY PRN PO SEVERE CONSITIPATION; Start at 23:30 Enoxaparin Sodium (Lovenox Inj) 100 mg DAILY SQ Last administered on 04/29/17at 09:24; Start 04/25/17 at 09:00; Stop 05/04/17 at 18:35; Status DC Ferrous Sulfate (Ferrous Sulfate Liq) 15 mg BID PO Last administered on at 09:40; Start 04/25/17 at 09:00 Fluoxetine HCl (PROzac) 10 mg DAILY PO Last administered on 05/07/17 09:40; Start 04/25/17 at 09:00 Metoprolol Succinate (Toprol Xl) 12.5 mg BID PO Last administered on 05/07/17 09:38; Start 04/25/17 at 09:00 Pantoprazole Sodium (Protonix) 40 mg DAILY PO Last administered on 05/07/17 09 :38; Start 04/25/17 at 09:00 Topiramate (Topamax) 25 mg BID PO Last administered on 05/07/17 09:38; Start 04/25/17 at 09:00 Oxycodone/ Acetaminophen (Percocet 5-325 Mg) 1 tab Q6H PRN PO PAIN 3-5 Last administered on 04/29/17 20:46; Start 04/25/17 at 01:00; Stop 05/03/17 at 11:49; Status DC Vancomycin HCl 1000 mg/Sodium Chloride 250 ml @ 250 mls/hr Q12H IV Last administered on 04/27/17 10:20; Start 04/25/17 at 09:00; Stop 04/27/17 at 11:55; Status DC Pharmacy Profile Note 0 ml @ 0 mls/hr UNSCH OTHER ; Start 04/25/17 at 01:00; Stop 04/27/17 at 11:55; Status DC Aspirin (Aspirin Chew) 81 mg DAILY CHEW Last administered on 04/30/17 09:59; Start 04/25/17 at 15:00; Status Future Hold Lorazepam (Ativan) 1 mg BID PRN PO ANXIETY AND/OR AGITATION Last administered on 04/26/17 08:24; Start 04/25/17 at 12:00; Stop 04/26/17 at 12:24; Status DC Oxycodone/ Acetaminophen (Percocet 10-325 Mg) 1 tab Q4H PRN PO pain 6-10 Last administered on 05/07/17 09:39; Start 04/25/17 at 14:30 Hydromorphone HCl (Dilaudid Pf Inj) 0.5 mg Q4H PRN IV PUSH breakthrough pain Last administered on 04/27/17 10:16; Start 04/25/17 at 14:30; Stop 04/27/17 at 11: 53; Status DC Miscellaneous Information SPECIFIC LAB TO BE DRAWN:VANCO TROUGH DATE TO BE DRImani.. ONCE ONCE .XX Last administered on 04/26/17at 10:10; Start 04/26/17 at 08: 45; Stop 04/26/17 at 08:46; Status DC Ferrous Sulfate (Ferrous Sulfate Liq) 15 mg BID PO ; Start 04/25/17 at 23:45; Status Cancel Nitroglycerin (Nitrostat Sl) 0.4 mg STK-MED ONCE SL ; Start 04/26/17 at 10:59; Stop 04/26/17 at 11:00; Status DC Iohexol (Omnipaque 350 Inj) 74 ml STK-MED ONCE IVCONTRAST Last administered on 04/26/17at 11:32; Start 04/26/17 at 11:32; Stop 04/26/17 at 11:33; Status DC Lorazepam (Ativan) 1 mg TID PRN PO ANXIETY AND/OR AGITATION Last administered on 05/03/17at 20:40; Start 04/26/17 at 12:30 Albuterol/ Ipratropium (Duoneb Neb) 1 ampule Q2HR NEB PRN NEB dyspnea; Start at 14:15 Albuterol/ Ipratropium (Duoneb Neb) 1 ampule Q6HR WHILE AWAKE NEB NEB Last administered on 04/29/17at 19:57; Start 04/26/17 at 14:15; Stop 04/30/17 at 14:14; Status DC Regadenoson (Lexiscan Inj) 0.4 mg STK-MED ONCE .ROUTE Last administered on at 11:17; Start 04/28/17 at 11:17; Stop 04/28/17 at 11:18; Status DC Vancomycin HCl 1000 mg/Sodium Chloride 250 ml @ 250 mls/hr Q12H IV ; Start 04/29 at 17:15; Stop 04/29/17 at 17:54; Status DC Pharmacy Profile Note 0 ml @ 0 mls/hr UNSCH OTHER ; Start 04/29/17 at 17:15; Stop 05/05/17 at 10:57; Status DC Levofloxacin/ Dextrose 150 ml @ 100 mls/hr Q24H IV Last administered on at 17:15; Start 04/29/17 at 18:00; Stop 05/02/17 at 18:13; Status DC Vancomycin HCl 1000 mg/Sodium Chloride 250 ml @ 250 mls/hr Q8H IV Last administered on 05/05/17at 10:08; Start 04/29/17 at 18:00; Stop 05/05/17 at 10:57 ; Status DC Sodium Chloride 1,000 ml @ 999 mls/hr BOLUS ONCE IV Last administered on at 22:27; Start 04/29/17 at 21:45; Stop 04/29/17 at 22:45; Status DC Oxymetazoline HCl (Afrin 0.05% Kory [place]) 2 spray ONCE ONCE NASAL Last administered on 04/30/17at 05:48; Start 04/30/17 at 05:30; Stop 04/30/17 at 05:31; Status DC Miscellaneous Information SPECIFIC LAB TO BE KAYLEE... ONCE ONCE .XX Last administered on 04/30/17at 17:45; Start 04/30/17 at 17:45; Stop 04/30/17 at 17:46; Status DC Miscellaneous Information SPECIFIC LAB TO BE DRAWN:VANCO TROUGH DATE TO BE DR... ONCE ONCE .XX Last administered on 05/01/17at 17:45; Start 05/01/17 at 17: 45; Stop 05/01/17 at 17:46; Status DC Mupirocin (Bactroban 2% Cream) 1 applic TID OTHER ; Start 05/01/17 at 09:00; Stop 05/01/17 at 09:52; Status DC Mupirocin (Bactroban Nasal 2% Oint) 1 applic TID OTHER Last administered on at 09:40; Start 05/01/17 at 13:00 Heparin Sodium/ Dextrose 250 ml @ 9 mls/hr TITRATE PRN IV Coagulation Management Last administered on 05/01/17at 15:22; Start 05/01/17 at 13:15; Stop 12/11 at 12:29; Status DC Miscellaneous Information SPECIFIC LAB TO BE DRAWN:VANCO TROUGH DATE TO BE DR... ONCE ONCE .XX Last administered on 05/02/17at 10:26; Start 05/02/17 at 09: 45; Stop 05/02/17 at 09:46; Status DC Heparin Sodium/ Dextrose 250 ml @ 14 mls/hr TITRATE PRN IV Coagulation Management Last administered on 05/04/17at 06:37; Start 05/03/17 at 11:30; Status Future Hold Warfarin Sodium (Coumadin) 5 mg DAILY@1600 PO Last administered on 05/03/17at 16 :26; Start 05/03/17 at 16:00; Stop 05/04/17 at 12:36; Status DC Oxycodone/ Acetaminophen (Percocet 5-325 Mg) 1 tab Q4H PRN PO PAIN 3-5; Start 05/03/17 at 12:00 Diphenhydramine HCl (Benadryl) 25 mg Q6H PRN PO ALLERGIES Last administered on 05/03/17at 20:39; Start 05/03/17 at 11:45 Methocarbamol (Robaxin) 500 mg Q8HR PRN PO SPASM; Start 05/03/17 at 12:00 Miscellaneous Information ALL NURSING DEPARTME... UNSCH PRN OTHER SEE LABEL COMMENTS; Start 05/03/17 at 13:00; Stop 05/04/17 at 12:59; Status DC Patient Medication Teaching (Coumadin Booklet) 1 ONCE ONCE OTHER Last administered on 05/03/17at 16:25; Start 05/03/17 at 16:00; Stop 05/03/17 at 16:01 ; Status DC Miscellaneous Information SPECIFIC LAB TO BE DRAWN:VANCO TROUGH DATE TO... ONCE ONCE .XX ; Start 05/06/17 at 09:45; Stop 05/06/17 at 09:45; Status DC Warfarin Sodium (Coumadin) 7.5 mg DAILY@1600 PO Last administered on 05/04/17at 16:08; Start 05/04/17 at 16:00; Stop 05/05/17 at 10:46; Status DC Enoxaparin Sodium (Lovenox Inj) 80 mg BID SQ Last administered on 05/07/17at 09: 39; Start 05/04/17 at 21:00 Warfarin Sodium (Coumadin) 10 mg DAILY@1600 PO Last administered on 05/06/17at 17:01; Start 05/05/17 at 16:00 Diphenhydramine HCl (Benadryl 2% Cream) 1 applic ONCE ONCE TOPICAL Last administered on 05/05/17at 23:22; Start 05/05/17 at 22:30; Stop 05/05/17 at 22:31 ; Status DC A/P Problem List: (1) Infected ulcer of skin ICD Code: L98.499 - Non-pressure chronic ulcer of skin of other sites with unspecified severity; L08.9 - Local infection of the skin and subcutaneous tissue, unspecified Status: Acute (2) H/O endocarditis ICD Code: Z86.79 - Personal history of other diseases of the circulatory system Status: Chronic (3) Systolic CHF, chronic ICD Code: I50.22 - Chronic systolic (congestive) heart failure Status: Chronic (4) History of heart valve replacement ICD Code: Z95.2 - Presence of prosthetic heart valve (5) Anxiety ICD Code: F41.9 - Anxiety disorder, unspecified Status: Acute (6) Epistaxis ICD Code: R04.0 - Epistaxis Plan: PT/PTT elevated. Platelets within normal range. Lovenox was held due to epistaxis. Resume IV heparin drip after epistaxis has resolved. Consult ENT. Monitor hemoglobin. Hemoglobin slowly trending down from 10.8-9.9-9.8-9.7. Transfuse as needed for hemoglobin less than 8 if active bleeding, symptomatic anemia, goal of hemoglobin more than 9. 3/8 appreciate ENT consultation, recommendations noted. At this time I will start the patient on IV heparin drip since the patient is a high risk for thrombus formation given mechanical valve. Heparin drip will be continued 24 hours and if there is no bleeding then the patient will likely be safe to be switched to Lovenox subcutaneously. I will order fibrinogen, LDH and haptoglobin to rule out DIC. SEEN BY ENT WANTS TO HOLD ANTICOAGULATION ONE MORE DAY WILL RESTART ON 10 WITH HEPARIN DRIP AND COUMADIN INCREASED TO 7.5 TODAY 311 RESOLVED SOME INTERMITTENT BLEEDING ON 05-05 AND 05-06 MONITOR AM LABS Assessment and Plan Assessment and Plan Sepsis/fever Unclear etiology. Chest x-ray negative for infiltrates, UA negative. Suspect cellulitis of the right upper back. ID consulted. As procedure recommendations. Continue IV vancomycin IV Levaquin. Monitor blood cultures Monitor white blood cell count Check 2D echocardiogram. Sepsis seems to be improving with improved tachycardia and resolved leukocytosis. 05/01 continue IV antibiotics as per ID. The patient still having low-grade fevers, however these are improving. Blood cultures negative 2. Acute hypercarbic respiratory failure. Now resolved. As per medical records patient with CO2 retention which improved on repeat ABG. The patient was transitioned back from nonrebreather mask to nasal cannula. Etiology unclear. - wean O2 as tolerated. - standing and as needed nebs. - IS. - encourage ambulation. 04/29 much improved. Continue supplemental oxygen as tolerated. Acute chest pain Left-sided. Family history significant for CAD. EKG without acute ischemic changes. Trops peaked at 0.07. CTA negative. Cardiology consult appreciated. Stress test 04/28 showed: 20-30% redistribution in the high anterolateral wall; Findings could represent ischemia at the watershed area between the LAD and circumflex; Adequate wall motion throughout with an estimated ejection fraction of 61%. Discussed results with cardiology and radiology. Continue telemetry. 04/29 nuclear stress testing with 20-30% with distribution height anterolateral wall.. Findings could represent ischemia at the watershed area between the LAD and the circumflex. We will obtain chest x-ray since patient is having no fevers. Possible chest pain could be secondary to pneumonia versus skin lesion in the right upper back. 04/30 cardiology recommended medical management. Consider noncardiac chest pain etiologies. Back wound Reportedly started as reaction to Zosyn. Patient has been caring for it herself. Did not follow up outpatient with wound care. Wound nurse recommendations appreciated. Seems to be clean and without evidence of infection. Wound culture with normal heath. - wound care as recommended by wound nurse. -Initially started on IV vancomycin. - Pain control with a bowel regimen. Vancomycin discontinued. - follow blood cultures, NGTD. 04/01 I will consult infectious disease and start the patient IV outpatient antibiotic therapy given no fevers. Suspect cellulitis of the right upper back wound. Continue antibiotics as above. H/O endocarditis Recently treated at [facility] in [place] for bacteremia. - Repeat blood cultures. NGTD. - cardiology following. Systolic CHF, chronic No evidence of fluid overload at this time. Most recent echo in out system with normal EF. - Continue metoprolol. - Hold lisinopril and Aldactone due to low blood pressure. Resume when appropriate. History of heart valve replacement On Lovenox. States Coumadin did not work for her. 04/30 hold Lovenox due to recurrent epistaxis. Once epistaxis stops, will likely resume IV heparin drip. We will transition back to Lovenox once epistaxis has been evaluated by ENT. 05/01 start Iv heparin drip - if no further epistaxis the patient may be placed back on Lovenox.-- ON HOLD DUE TO NASAL BLEEDING RELOADING COUMADIN GOAL 2.0 TO 3.0 Migraines The patient stated that she has had migraines since she developed brain hematomas this past summer. - Pain control as needed. 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
[2017-05-07] MEDS: WARFARIN SOD 7.5 MG TAB PO SCH (16:52)
[2017-05-08] VITALS (9 sets, daily range): BP systolic 110–140; BP diastolic 54–74; PULSE 60–69; RESP 16–18; TEMP 97–98.9; O2SAT 96–100
[2017-05-08 06:47] LABS: AUTOMATED NEUTROPHIL # 3.4 TH/MM3 (1.8-7.7); BASOPHIL # 0.1 TH/MM3 (0-0.2); BASOPHIL % 1.3 % (0.0-2.0); EOSINOPHIL # 0.8 TH/MM3 (0-0.4); EOSINOPHIL % 9.2 % (0.0-4.0); HEMATOCRIT 31.5 % (35.0-46.0); HEMOGLOBIN 10.4 GM/DL (11.6-15.3); LYMPH % 40.8 % (9.0-44.0); LYMPHOCYTE # 3.6 TH/MM3 (1.0-4.8); MEAN CELL VOLUME 92.9 FL (80.0-100.0); MEAN CORPUSCULAR HEMOGLOBIN 30.6 PG (27.0-34.0); MEAN CORPUSCULAR HGB CONC 32.9 % (32.0-36.0); MEAN PLATELET VOLUME 7.4 FL (7.0-11.0); MONO % 9.3 % (0.0-8.0); MONOCYTE # 0.8 TH/MM3 (0-0.9); NEUT % 39.4 % (16.0-70.0); PLATELET COUNT 643 TH/MM3 (150-450); RED BLOOD COUNT 3.39 MIL/MM3 (4.00-5.30); RED CELL DISTRIBUTION WIDTH 13.8 % (11.6-17.2); WHITE BLOOD COUNT 8.8 TH/MM3 (4.0-11.0)
[2017-05-08 06:51] LABS: INTERNATIONAL NORMALIZED RATIO 1.8 RATIO; PROTHROMBIN TIME - PATIENT 18.2 SEC (9.8-11.6)
[2017-05-08 07:08] LABS: ALBUMIN 3.5 GM/DL (3.4-5.0); AST (GOT) 15 U/L (15-37); BICARBONATE 21.9 MEQ/L (21.0-32.0); BLOOD UREA NITROGEN 10 MG/DL (7-18); CALCIUM 9.2 MG/DL (8.5-10.1); CHLORIDE 106 MEQ/L (98-107); CREATININE 0.91 MG/DL (0.50-1.00); GLOMERULAR FILTRATION RATE 74 ML/MIN (>89); GLUCOSE,RANDOM 89 MG/DL (74-106); MAGNESIUM 2.3 MG/DL (1.5-2.5); SODIUM (NA) 138 MEQ/L (136-145)
[2017-05-08 07:14] LABS: ALKALINE PHOSPHATASE 151 U/L (45-117); ALT (GPT) 17 U/L (10-53); TOTAL BILIRUBIN ADULT 0.5 MG/DL (0.2-1.0)
[2017-05-08] MEDS: MUPIROCIN 2% OINT 1 APPLIC/GM SYR OTHER SCH ×3 (08:51→17:08)
[2017-05-08] MEDS: FERROUS SULFATE 15 MG/ML ELEMENTAL IRON 50 ML BTL PO SCH ×2 (08:52→21:04)
[2017-05-08] MEDS: TOPIRAMATE 25 MG TAB PO SCH ×2 (08:52→21:03)
[2017-05-08] MEDS: PANTOPRAZOLE SOD 40 MG DELAYED RELEASE TAB PO SCH (08:53)
[2017-05-08] MEDS: SODIUM CHLORIDE 0.9% FLUSH 10 ML FLUSH IV FLUSH SCH ×2 (08:54→21:04)
[2017-05-08] MEDS: METOPROLOL SUCCINATE 25 MG EXTENDED RELEASE TAB PO SCH ×2 (08:54→21:03)
[2017-05-08] MEDS: FLUoxetine HCL 10 MG CAP PO SCH (08:54)
[2017-05-08] MEDS: ENOXAPARIN SODIUM 80 MG/0.8 ML SYRINGE SQ SCH ×2 (08:55→21:04)
[2017-05-08] MEDS: oxyCODONE/ACETAMINOPHEN 10 MG/325 MG TAB PO PRN ×3 (10:36→21:03)
--- NOTE | 2017-05-08 13:24 | HHI.PR ---
Subjective Remarks 3-9 STILL HAVING SOME INTERMITTENT NASAL BLEEDING AND NOW POSSIBLE RASH BY EYES AND RIGHT SIDE OF FACE-ONLY NEW RX IS MUPIROCIN DW PATIENT AND RN HOLD OF ON HEPARIN DRIP AND COUMADIN HOPEFULLY START TOMORROW IF NO MORE NASAL BLEEDING 3-10 WANTS PAIN MEDICATIONS WILL RESTART HEPARIN AND COUMADIN WANTS BENADRYL DW RN AND PT DAILY PT INR DW PATIENT AND RN AND CM NO MORE BLEEDING 3-11 INR IS ONLY 1.1 WILL INCREASE COUMADIN TO 7.5 DW RN AND PT NO BLEEDING RELOAD COUMADIN 3-12 CONTINUE LOADING INR HER VANCO WILL BE STOPPED BY ID NEEDS TO BE AT GOAL OF 2.0 TO 3.0 AT LEAST FOR MECHANICAL VALVE INCREASE COUMADIN TO 10MG PO DAILY 3-13 HAVING SOME BLEEDING FROM HER NOSE WILL NEED TO MONITOR THIS CONTINUE COUMADIN AND LOVENOX FOR MECHANICAL VALVES 3-14 patient continues to pick at her face INR IS 1.7 HOPEFULLY GREATER THAN 2.0 TOMORROW WILL DECREASE COUMADIN TO 7.5MG AM LABS 3- INR 1.8 REFUSED LOVENOX HAS 2 MECHANICAL VALVES NEEDS INR 2.0 PLUS Objective Vitals Vital Signs Date Time Temp Pulse Resp B/P (MAP) Pulse Ox O2 Delivery O2 Flow Rate FiO2 05/08/17 12:58 98.9 63 18 115/55 (75) 97 05/08/17 12:12 63 05/08/17 08:00 98.5 69 17 110/54 (72) 96 05/08/17 05:30 98.0 66 17 118/60 (79) 99 05/08/17 00:00 98.0 69 17 125/65 (85) 99 05/07/17 20:42 99.0 65 20 121/58 (79) 98 05/07/17 16:27 98.7 63 20 109/55 (73) 95 05/07/17 14:21 62 I/O 05/07/17 05/07/17 05/07/17 05/08/17 05/08/17 05/08/17 06:59 14:59 22:59 06:59 14:59 22:59 Intake Total 1400 ml 950 ml Balance 1400 ml 950 ml Intake Oral 1400 ml 950 ml # Voids 1 4 4 # Bowel Movements 0 0 Result Diagram: 05/08/1760405/08/17604 Other Results Laboratory Tests Test 05/06/17 06:35 05/06/17 15:55 05/07/17 08:25 05/08/17 06:05 White Blood Count 9.1 TH/MM3 8.7 TH/MM3 8.8 TH/MM3 Red Blood Count 2.97 MIL/MM3 3.38 MIL/MM3 3.39 MIL/MM3 Hemoglobin 9.5 GM/DL 10.1 GM/DL 10.4 GM/DL Hematocrit 27.8 % 31.0 % 31.5 % Mean Corpuscular Volume 93.4 FL 91.7 FL 92.9 FL Mean Corpuscular Hemoglobin 32.1 PG 30.0 PG 30.6 PG Mean Corpuscular Hemoglobin Concent 34.4 % 32.7 % 32.9 % Red Cell Distribution Width 13.9 % 14.1 % 13.8 % Platelet Count 448 TH/MM3 533 TH/MM3 643 TH/MM3 Mean Platelet Volume 7.5 FL 7.3 FL 7.4 FL Neutrophils (%) (Auto) 41.7 % 56.8 % 39.4 % Lymphocytes (%) (Auto) 40.2 % 30.0 % 40.8 % Monocytes (%) (Auto) 9.1 % 6.7 % 9.3 % Eosinophils (%) (Auto) 7.8 % 5.1 % 9.2 % Basophils (%) (Auto) 1.2 % 1.4 % 1.3 % Neutrophils # (Auto) 3.8 TH/MM3 4.9 TH/MM3 3.4 TH/MM3 Lymphocytes # (Auto) 3.7 TH/MM3 2.6 TH/MM3 3.6 TH/MM3 Monocytes # (Auto) 0.8 TH/MM3 0.6 TH/MM3 0.8 TH/MM3 Eosinophils # (Auto) 0.7 TH/MM3 0.4 TH/MM3 0.8 TH/MM3 Basophils # (Auto) 0.1 TH/MM3 0.1 TH/MM3 0.1 TH/MM3 CBC Comment DIFF FINAL DIFF FINAL DIFF FINAL Differential Comment Prothrombin Time 13.0 SEC 17.2 SEC 18.2 SEC Prothromb Time International Ratio 1.3 RATIO 1.7 RATIO 1.8 RATIO Blood Urea Nitrogen 8 MG/DL 8 MG/DL 10 MG/DL Creatinine 0.76 MG/DL 0.90 MG/DL 0.91 MG/DL Random Glucose 92 MG/DL 83 MG/DL 89 MG/DL Total Protein 7.5 GM/DL 7.7 GM/DL 8.0 GM/DL Albumin 3.5 GM/DL 3.4 GM/DL 3.5 GM/DL Calcium Level 8.6 MG/DL 8.8 MG/DL 9.2 MG/DL Phosphorus Level 3.3 MG/DL 3.4 MG/DL 4.0 MG/DL Magnesium Level 2.2 MG/DL 2.1 MG/DL 2.3 MG/DL Alkaline Phosphatase 149 U/L 156 U/L 151 U/L Aspartate Amino Transf (AST/SGOT) 14 U/L 11 U/L 15 U/L Alanine Aminotransferase (ALT/SGPT) 18 U/L 15 U/L 17 U/L Total Bilirubin 0.5 MG/DL 0.6 MG/DL 0.5 MG/DL Sodium Level 139 MEQ/L 138 MEQ/L 138 MEQ/L Potassium Level 3.8 MEQ/L 3.8 MEQ/L 4.0 MEQ/L Chloride Level 108 MEQ/L 106 MEQ/L 106 MEQ/L Carbon Dioxide Level 25.3 MEQ/L 22.4 MEQ/L 21.9 MEQ/L Anion Gap 6 MEQ/L 10 MEQ/L 10 MEQ/L Estimat Glomerular Filtration Rate 91 ML/MIN 75 ML/MIN 74 ML/MIN Urine Color YELLOW Urine Turbidity CLEAR Urine pH 6.0 Urine Specific Gray 1.018 Urine Protein NEG mg/dL Urine Glucose (UA) NEG mg/dL Urine Ketones NEG mg/dL Urine Occult Blood TRACE Urine Nitrite NEG Urine Bilirubin NEG Urine Urobilinogen LESS THAN 2.0 MG/DL Urine Leukocyte Esterase NEG Urine RBC 1 /hpf Urine WBC 1 /hpf Urine Squamous Epithelial Cells 2 /hpf Microscopic Urinalysis Comment CULT NOT INDICATED Urine Opiates Screen POS Urine Barbiturates Screen NEG Urine Amphetamines Screen NEG Urine Benzodiazepines Screen NEG Urine Cocaine Screen NEG Urine Cannabinoids Screen NEG Imaging Last Impressions Chest X-Ray 04/29/17 0000 Signed Impressions: Service Date/Time: Saturday, April 29, 2017 19:23 - CONCLUSION: The lungs are clear. Stable right lateral pleural thickening. Andrey Virk MD Myocardial Perfusion Scan Nuc Med 04/28/17 0600 Signed Impressions: Service Date/Time: Friday, April 28, 2017 10:45 - CONCLUSION: 1. 20-30%% redistribution in the high anterolateral wall. Findings could represent ischemia at the watershed area between the LAD and circumflex. 2. Adequate wall motion throughout with an estimated ejection fraction of 61%% RISK CATEGORY: Intermediate (1-3%% Annual Mortality Rate) Gonzalez Tolliver MD Head CT 04/26/17 0000 Signed Impressions: Service Date/Time: Wednesday, April 26, 2017 13:09 - CONCLUSION: 2 old areas of encephalomalacia on the right side. No evidence of acute hemorrhage, edema, mass, or mass effect. Keanu Monahan MD CT Angiography 04/26/17 0000 Signed Impressions: Service Date/Time: Wednesday, April 26, 2017 11:29 - CONCLUSION: Normal examination with no evidence of pulmonary embolism. Minimal atelectasis scarring both lung bases. Keanu Monahan MD Objective Remarks GENERAL: IN No ACUTE distress. NO ACTIVE NASAL BLEEDING TODAY SKIN: There is an open ulcer with erythema at the base and surrounding the ulcer on the right upper back. Has been picking around her eyes and around her nose on her face and her cheek HEAD: Atraumatic. Normocephalic. No temporal or scalp tenderness. EYES: Pupils equal round and reactive. Extraocular motions intact. No scleral icterus. No injection or drainage. ENT: Nose without bleeding, purulent drainage or septal hematoma. Throat without erythema, tonsillar hypertrophy or exudate. Uvula midline. Airway patent. Patient has been picking around her eyes and around her nose and on her face and her cheeks NECK: Trachea midline. No JVD or lymphadenopathy. Supple, nontender, no meningeal signs. CARDIOVASCULAR: Normal rate. Regular rhythm. Mechanical click noted. S1, S2 NO S3 OR S4 NO HEAVE OR THRILL RESPIRATORY: Clear to auscultation. Breath sounds equal bilaterally. No wheezes , rales, or rhonchi. GASTROINTESTINAL: Abdomen soft, non-tender, nondistended. No hepato-splenomegaly , or palpable masses. No guarding. MUSCULOSKELETAL: Extremities without clubbing, cyanosis, or edema. No joint tenderness, effusion, or edema noted. NEUROLOGICAL: Awake and alert. Cranial nerves II through XII intact. Motor and sensory grossly within normal limits. Five out of 5 muscle strength in all muscle groups. Normal speech. PSYCH: Slightly flattened affect. Insight and judgment is abnormal. Mood and behavior is INappropriate Procedures NONE Medications and IVs Current Medications Vancomycin HCl 1000 mg/Sodium Chloride 250 ml @ 250 mls/hr ONCE ONCE IV Last administered on 04/24/17at 21:04; Start 04/24/17 at 19:30; Stop 04/24/17 at 20:29; Status DC Ketorolac Tromethamine (Toradol Inj) 30 mg ONCE ONCE IV PUSH Last administered on 04/24/17at 21:05; Start 04/24/17 at 20:15; Stop 04/24/17 at 20:16; Status DC Famotidine (Pepcid Inj) 20 mg ONCE IV PUSH Last administered on 04/24/17at 21:06 ; Start 04/24/17 at 20:15; Stop 04/28/17 at 16:04; Status DC Ondansetron HCl (Zofran Inj) 4 mg ONCE ONCE IV PUSH Last administered on at 20:15; Start 04/24/17 at 20:15; Stop 04/24/17 at 20:16; Status DC Sodium Chloride 1,000 ml @ 999 mls/hr BOLUS ONCE IV Last administered on at 21:05; Start 04/24/17 at 20:15; Stop 04/24/17 at 21:15; Status DC Sodium Chloride (NS Flush) 2 ml UNSCH PRN IV FLUSH FLUSH AFTER USING IV ACCESS ; Start 04/24/17 at 23:30 Sodium Chloride (NS Flush) 2 ml BID IV FLUSH Last administered on 05/07/17at 21: 30; Start 04/25/17 at 09:00 Acetaminophen (Tylenol) 650 mg Q4H PRN PO TEMP > 100.4 Last administered on at 04:25; Start 04/24/17 at 23:30 Ondansetron HCl (Zofran Inj) 4 mg Q6H PRN IVP NAUSEA OR VOMITING Last administered on 04/29/17at 01:40; Start 04/24/17 at 23:30 Naloxone HCl (Narcan Inj) 0.4 mg UNSCH PRN IV PUSH SEE LABEL COMMENTS; Start at 23:30 Magnesium Hydroxide (Milk Of Magnesia Liq) 30 ml Q12H PRN PO Mild constipation ; Start 04/24/17 at 23:30 Sennosides (Senokot) 17.2 mg Q12H PRN PO Moderate constipation; Start 04/24/17 at 23:30 Bisacodyl (Dulcolax Supp) 10 mg DAILY PRN RECTAL SEVERE CONSITIPATION; Start at 23:30 Lactulose (Lactulose Liq) 30 ml DAILY PRN PO SEVERE CONSITIPATION; Start at 23:30 Enoxaparin Sodium (Lovenox Inj) 100 mg DAILY SQ Last administered on 04/29/17 09:24; Start 04/25/17 at 09:00; Stop 05/04/17 at 18:35; Status DC Ferrous Sulfate (Ferrous Sulfate Liq) 15 mg BID PO Last administered on 08:52; Start 04/25/17 at 09:00 Fluoxetine HCl (PROzac) 10 mg DAILY PO Last administered on 05/08/17 08:54; Start 04/25/17 at 09:00 Metoprolol Succinate (Toprol Xl) 12.5 mg BID PO Last administered on 05/08/17 08:54; Start 04/25/17 at 09:00 Pantoprazole Sodium (Protonix) 40 mg DAILY PO Last administered on 05/08/17 08 :53; Start 04/25/17 at 09:00 Topiramate (Topamax) 25 mg BID PO Last administered on 05/08/17 08:52; Start 04/25/17 at 09:00 Oxycodone/ Acetaminophen (Percocet 5-325 Mg) 1 tab Q6H PRN PO PAIN 3-5 Last administered on 04/29/17 20:46; Start 04/25/17 at 01:00; Stop 05/03/17 at 11:49; Status DC Vancomycin HCl 1000 mg/Sodium Chloride 250 ml @ 250 mls/hr Q12H IV Last administered on 04/27/17 10:20; Start 04/25/17 at 09:00; Stop 04/27/17 at 11:55; Status DC Pharmacy Profile Note 0 ml @ 0 mls/hr UNSCH OTHER ; Start 04/25/17 at 01:00; Stop 04/27/17 at 11:55; Status DC Aspirin (Aspirin Chew) 81 mg DAILY CHEW Last administered on 3/7/18at 09:59; Start 04/25/17 at 15:00; Status Future Hold Lorazepam (Ativan) 1 mg BID PRN PO ANXIETY AND/OR AGITATION Last administered on 04/26/17at 08:24; Start 04/25/17 at 12:00; Stop 04/26/17 at 12:24; Status DC Oxycodone/ Acetaminophen (Percocet 10-325 Mg) 1 tab Q4H PRN PO pain 6-10 Last administered on 05/08/17at 10:36; Start 04/25/17 at 14:30 Hydromorphone HCl (Dilaudid Pf Inj) 0.5 mg Q4H PRN IV PUSH breakthrough pain Last administered on 04/27/17at 10:16; Start 04/25/17 at 14:30; Stop 04/27/17 at 11: 53; Status DC Miscellaneous Information SPECIFIC LAB TO BE DRAWN:VANCO TROUGH DATE TO BE DR... ONCE ONCE .XX Last administered on 04/26/17at 10:10; Start 04/26/17 at 08: 45; Stop 04/26/17 at 08:46; Status DC Ferrous Sulfate (Ferrous Sulfate Liq) 15 mg BID PO ; Start 04/25/17 at 23:45; Status Cancel Nitroglycerin (Nitrostat Sl) 0.4 mg STK-MED ONCE SL ; Start 04/26/17 at 10:59; Stop 04/26/17 at 11:00; Status DC Iohexol (Omnipaque 350 Inj) 74 ml STK-MED ONCE IVCONTRAST Last administered on 04/26/17at 11:32; Start 04/26/17 at 11:32; Stop 04/26/17 at 11:33; Status DC Lorazepam (Ativan) 1 mg TID PRN PO ANXIETY AND/OR AGITATION Last administered on 05/03/17at 20:40; Start 04/26/17 at 12:30 Albuterol/ Ipratropium (Duoneb Neb) 1 ampule Q2HR NEB PRN NEB dyspnea; Start at 14:15 Albuterol/ Ipratropium (Duoneb Neb) 1 ampule Q6HR WHILE AWAKE NEB NEB Last administered on 04/29/17at 19:57; Start 04/26/17 at 14:15; Stop 04/30/17 at 14:14; Status DC Regadenoson (Lexiscan Inj) 0.4 mg STK-MED ONCE .ROUTE Last administered on at 11:17; Start 04/28/17 at 11:17; Stop 04/28/17 at 11:18; Status DC Vancomycin HCl 1000 mg/Sodium Chloride 250 ml @ 250 mls/hr Q12H IV ; Start 04/29 at 17:15; Stop 04/29/17 at 17:54; Status DC Pharmacy Profile Note 0 ml @ 0 mls/hr UNSCH OTHER ; Start 04/29/17 at 17:15; Stop 05/05/17 at 10:57; Status DC Levofloxacin/ Dextrose 150 ml @ 100 mls/hr Q24H IV Last administered on at 17:15; Start 04/29/17 at 18:00; Stop 05/02/17 at 18:13; Status DC Vancomycin HCl 1000 mg/Sodium Chloride 250 ml @ 250 mls/hr Q8H IV Last administered on 05/05/17at 10:08; Start 04/29/17 at 18:00; Stop 05/05/17 at 10:57 ; Status DC Sodium Chloride 1,000 ml @ 999 mls/hr BOLUS ONCE IV Last administered on at 22:27; Start 04/29/17 at 21:45; Stop 04/29/17 at 22:45; Status DC Oxymetazoline HCl (Afrin 0.05% Kory Brewster) 2 spray ONCE ONCE NASAL Last administered on 04/30/17at 05:48; Start 04/30/17 at 05:30; Stop 04/30/17 at 05:31; Status DC Miscellaneous Information SPECIFIC LAB TO BE KAYLEE... ONCE ONCE .XX Last administered on 04/30/17at 17:45; Start 04/30/17 at 17:45; Stop 04/30/17 at 17:46; Status DC Miscellaneous Information SPECIFIC LAB TO BE DRAWN:VANCO TROUGH DATE TO BE DR... ONCE ONCE .XX Last administered on 05/01/17at 17:45; Start 05/01/17 at 17: 45; Stop 05/01/17 at 17:46; Status DC Mupirocin (Bactroban 2% Cream) 1 applic TID OTHER ; Start 05/01/17 at 09:00; Stop 05/01/17 at 09:52; Status DC Mupirocin (Bactroban Nasal 2% Oint) 1 applic TID OTHER Last administered on at 09:40; Start 05/01/17 at 13:00 Heparin Sodium/ Dextrose 250 ml @ 9 mls/hr TITRATE PRN IV Coagulation Management Last administered on 05/01/17at 15:22; Start 05/01/17 at 13:15; Stop 12/11 at 12:29; Status DC Miscellaneous Information SPECIFIC LAB TO BE DRAWN:VANCO TROUGH DATE TO BE DR... ONCE ONCE .XX Last administered on 05/02/17at 10:26; Start 05/02/17 at 09: 45; Stop 05/02/17 at 09:46; Status DC Heparin Sodium/ Dextrose 250 ml @ 14 mls/hr TITRATE PRN IV Coagulation Management Last administered on 05/04/17at 06:37; Start 05/03/17 at 11:30; Status Future Hold Warfarin Sodium (Coumadin) 5 mg DAILY@1600 PO Last administered on 05/03/17at 16 :26; Start 05/03/17 at 16:00; Stop 05/04/17 at 12:36; Status DC Oxycodone/ Acetaminophen (Percocet 5-325 Mg) 1 tab Q4H PRN PO PAIN 3-5; Start 05/03/17 at 12:00 Diphenhydramine HCl (Benadryl) 25 mg Q6H PRN PO ALLERGIES Last administered on 05/03/17at 20:39; Start 05/03/17 at 11:45 Methocarbamol (Robaxin) 500 mg Q8HR PRN PO SPASM; Start 05/03/17 at 12:00 Miscellaneous Information ALL NURSING DEPARTME... UNSCH PRN OTHER SEE LABEL COMMENTS; Start 05/03/17 at 13:00; Stop 05/04/17 at 12:59; Status DC Patient Medication Teaching (Coumadin Booklet) 1 ONCE ONCE OTHER Last administered on 05/03/17at 16:25; Start 05/03/17 at 16:00; Stop 05/03/17 at 16:01 ; Status DC Miscellaneous Information SPECIFIC LAB TO BE DRAWN:VANCO TROUGH DATE TO... ONCE ONCE .XX ; Start 05/06/17 at 09:45; Stop 05/06/17 at 09:45; Status DC Warfarin Sodium (Coumadin) 7.5 mg DAILY@1600 PO Last administered on 05/04/17at 16:08; Start 05/04/17 at 16:00; Stop 05/05/17 at 10:46; Status DC Enoxaparin Sodium (Lovenox Inj) 80 mg BID SQ Last administered on 05/07/17at 21: 27; Start 05/04/17 at 21:00 Warfarin Sodium (Coumadin) 10 mg DAILY@1600 PO Last administered on 05/06/17at 17:01; Start 05/05/17 at 16:00; Stop 05/07/17 at 12:04; Status DC Diphenhydramine HCl (Benadryl 2% Cream) 1 applic ONCE ONCE TOPICAL Last administered on 05/05/17at 23:22; Start 05/05/17 at 22:30; Stop 05/05/17 at 22:31 ; Status DC Warfarin Sodium (Coumadin) 7.5 mg DAILY@1600 PO Last administered on 05/07/17at 16:52; Start 05/07/17 at 16:00 A/P Problem List: (1) Infected ulcer of skin ICD Code: L98.499 - Non-pressure chronic ulcer of skin of other sites with unspecified severity; L08.9 - Local infection of the skin and subcutaneous tissue, unspecified Status: Acute (2) H/O endocarditis ICD Code: Z86.79 - Personal history of other diseases of the circulatory system Status: Chronic (3) Systolic CHF, chronic ICD Code: I50.22 - Chronic systolic (congestive) heart failure Status: Chronic (4) History of heart valve replacement ICD Code: Z95.2 - Presence of prosthetic heart valve (5) Anxiety ICD Code: F41.9 - Anxiety disorder, unspecified Status: Acute (6) Epistaxis ICD Code: R04.0 - Epistaxis Plan: PT/PTT elevated. Platelets within normal range. Lovenox was held due to epistaxis. Resume IV heparin drip after epistaxis has resolved. Consult ENT. Monitor hemoglobin. Hemoglobin slowly trending down from 10.8-9.9-9.8-9.7. Transfuse as needed for hemoglobin less than 8 if active bleeding, symptomatic anemia, goal of hemoglobin more than 9. 05/01 appreciate ENT consultation, recommendations noted. At this time I will start the patient on IV heparin drip since the patient is a high risk for thrombus formation given mechanical valve. Heparin drip will be continued 24 hours and if there is no bleeding then the patient will likely be safe to be switched to Lovenox subcutaneously. I will order fibrinogen, LDH and haptoglobin to rule out DIC. SEEN BY ENT WANTS TO HOLD ANTICOAGULATION ONE MORE DAY WILL RESTART ON 05-03 WITH HEPARIN DRIP AND COUMADIN INCREASED TO 7.5 TODAY 05-04 RESOLVED SOME INTERMITTENT BLEEDING ON 05-05 AND 05-06 MONITOR AM LABS Assessment and Plan Assessment and Plan Sepsis/fever Unclear etiology. Chest x-ray negative for infiltrates, UA negative. Suspect cellulitis of the right upper back. ID consulted. As procedure recommendations. Continue IV vancomycin IV Levaquin. Monitor blood cultures Monitor white blood cell count Check 2D echocardiogram. Sepsis seems to be improving with improved tachycardia and resolved leukocytosis. 05/01 continue IV antibiotics as per ID. The patient still having low-grade fevers, however these are improving. Blood cultures negative 2.-ANTIBIOTICS STOPPED PER ID Acute hypercarbic respiratory failure. Now resolved. As per medical records patient with CO2 retention which improved on repeat ABG. The patient was transitioned back from nonrebreather mask to nasal cannula. Etiology unclear. - wean O2 as tolerated. - standing and as needed nebs. - IS. - encourage ambulation. 04/29 much improved. Continue supplemental oxygen as tolerated. Acute chest pain Left-sided. Family history significant for CAD. EKG without acute ischemic changes. Trops peaked at 0.07. CTA negative. Cardiology consult appreciated. Stress test 04/28 showed: 20-30% redistribution in the high anterolateral wall; Findings could represent ischemia at the watershed area between the LAD and circumflex; Adequate wall motion throughout with an estimated ejection fraction of 61%. Discussed results with cardiology and radiology. Continue telemetry. 04/29 nuclear stress testing with 20-30% with distribution height anterolateral wall.. Findings could represent ischemia at the watershed area between the LAD and the circumflex. We will obtain chest x-ray since patient is having no fevers. Possible chest pain could be secondary to pneumonia versus skin lesion in the right upper back. 04/30 cardiology recommended medical management. Consider noncardiac chest pain etiologies. Back wound Reportedly started as reaction to Zosyn. Patient has been caring for it herself. Did not follow up outpatient with wound care. Wound nurse recommendations appreciated. Seems to be clean and without evidence of infection. Wound culture with normal heath. - wound care as recommended by wound nurse. -Initially started on IV vancomycin. - Pain control with a bowel regimen. Vancomycin discontinued. - follow blood cultures, NGTD. 04/01 I will consult infectious disease and start the patient IV outpatient antibiotic therapy given no fevers. Suspect cellulitis of the right upper back wound. Continue antibiotics as above.-- ANTIBIOTICS STOPPED BY ID H/O endocarditis Recently treated at [facility] in [place] for bacteremia. - Repeat blood cultures. NGTD. - cardiology following. Systolic CHF, chronic No evidence of fluid overload at this time. Most recent echo in out system with normal EF. - Continue metoprolol. - Hold lisinopril and Aldactone due to low blood pressure. Resume when appropriate. History of heart valve replacement On Lovenox. States Coumadin did not work for her. 04/30 hold Lovenox due to recurrent epistaxis. Once epistaxis stops, will likely resume IV heparin drip. We will transition back to Lovenox once epistaxis has been evaluated by ENT. 05/01 start Iv heparin drip - if no further epistaxis the patient may be placed back on Lovenox.-- WAS ON HOLD DUE TO NASAL BLEEDING RELOADING COUMADIN GOAL 2.0 TO 3.0 Migraines The patient stated that she has had migraines since she developed brain hematomas this past summer. - Pain control as needed. 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
[2017-05-08] MEDS: WARFARIN SOD 7.5 MG TAB PO SCH (15:43)
[2017-05-09 00:20] VITALS: BP 120/80; PULSE 66; RESP 16; TEMP 98.1; O2SAT 100
[2017-05-09] MEDS: oxyCODONE/ACETAMINOPHEN 10 MG/325 MG TAB PO PRN ×2 (01:46→07:51)
[2017-05-09 03:28] VITALS: PULSE 62
[2017-05-09 04:45] VITALS: BP 118/80; PULSE 60; RESP 17; TEMP 97.8; O2SAT 100
[2017-05-09 07:38] LABS: AUTOMATED NEUTROPHIL # 3.1 TH/MM3 (1.8-7.7); BASOPHIL # 0.2 TH/MM3 (0-0.2); BASOPHIL % 2.2 % (0.0-2.0); EOSINOPHIL # 0.6 TH/MM3 (0-0.4); EOSINOPHIL % 7.7 % (0.0-4.0); HEMATOCRIT 31.4 % (35.0-46.0); HEMOGLOBIN 10.9 GM/DL (11.6-15.3); LYMPH % 39.9 % (9.0-44.0); LYMPHOCYTE # 3.1 TH/MM3 (1.0-4.8); MEAN CELL VOLUME 91.8 FL (80.0-100.0); MEAN CORPUSCULAR HEMOGLOBIN 31.8 PG (27.0-34.0); MEAN CORPUSCULAR HGB CONC 34.7 % (32.0-36.0); MEAN PLATELET VOLUME 6.8 FL (7.0-11.0); MONO % 10.2 % (0.0-8.0); MONOCYTE # 0.8 TH/MM3 (0-0.9); PLATELET COUNT 781 TH/MM3 (150-450); RED BLOOD COUNT 3.42 MIL/MM3 (4.00-5.30); RED CELL DISTRIBUTION WIDTH 13.9 % (11.6-17.2); WHITE BLOOD COUNT 7.8 TH/MM3 (4.0-11.0)
[2017-05-09 07:40] VITALS: BP 102/54; PULSE 63; RESP 20; TEMP 98.8; O2SAT 99
[2017-05-09 07:43] LABS: INTERNATIONAL NORMALIZED RATIO 1.9 RATIO; PROTHROMBIN TIME - PATIENT 19.2 SEC (9.8-11.6)
[2017-05-09] MEDS: PANTOPRAZOLE SOD 40 MG DELAYED RELEASE TAB PO SCH (07:51)
[2017-05-09] MEDS: TOPIRAMATE 25 MG TAB PO SCH (07:52)
[2017-05-09] MEDS: METOPROLOL SUCCINATE 25 MG EXTENDED RELEASE TAB PO SCH (07:53)
[2017-05-09] MEDS: ENOXAPARIN SODIUM 80 MG/0.8 ML SYRINGE SQ SCH (07:53)
[2017-05-09] MEDS: MUPIROCIN 2% OINT 1 APPLIC/GM SYR OTHER SCH ×2 (07:54→13:00)
[2017-05-09] MEDS: SODIUM CHLORIDE 0.9% FLUSH 10 ML FLUSH IV FLUSH SCH (07:54)
[2017-05-09] MEDS: FLUoxetine HCL 10 MG CAP PO SCH (07:54)
[2017-05-09] MEDS: FERROUS SULFATE 15 MG/ML ELEMENTAL IRON 50 ML BTL PO SCH (07:55)
[2017-05-09 08:08] LABS: AST (GOT) 15 U/L (15-37); BICARBONATE 22.8 MEQ/L (21.0-32.0); BLOOD UREA NITROGEN 10 MG/DL (7-18); CALCIUM 9.7 MG/DL (8.5-10.1); CHLORIDE 105 MEQ/L (98-107); CREATININE 0.87 MG/DL (0.50-1.00); GLOMERULAR FILTRATION RATE 78 ML/MIN (>89); GLUCOSE,RANDOM 95 MG/DL (74-106); MAGNESIUM 2.4 MG/DL (1.5-2.5); SODIUM (NA) 137 MEQ/L (136-145)
[2017-05-09 08:13] LABS: ALKALINE PHOSPHATASE 159 U/L (45-117); ALT (GPT) 18 U/L (10-53); TOTAL BILIRUBIN ADULT 0.5 MG/DL (0.2-1.0); TOTAL PROTEIN 8.9 GM/DL (6.4-8.2)
[2017-05-09 10:12] VITALS: PULSE 61
[2017-05-09] MEDS ORDERED: ENOX80P SQ (11:32)
[2017-05-09] MEDS ORDERED: COUM7.5T PO ×2 (11:32→12:46)
[2017-05-09 12:09] VITALS: BP 99/55; PULSE 60; RESP 20; TEMP 97.8; O2SAT 99
--- NOTE | 2017-05-09 23:29 | HHI.DS ---
Discharge Summary Admission Date Apr 24, 2017 at 22:15 Admitting Diagnosis Infected wound back (1) Infected ulcer of skin ICD Code: L98.499 - Non-pressure chronic ulcer of skin of other sites with unspecified severity; L08.9 - Local infection of the skin and subcutaneous tissue, unspecified Status: Acute (2) H/O endocarditis ICD Code: Z86.79 - Personal history of other diseases of the circulatory system Status: Chronic (3) Systolic CHF, chronic ICD Code: I50.22 - Chronic systolic (congestive) heart failure Status: Chronic (4) History of heart valve replacement ICD Code: Z95.2 - Presence of prosthetic heart valve (5) Anxiety ICD Code: F41.9 - Anxiety disorder, unspecified Status: Acute (6) Epistaxis ICD Code: R04.0 - Epistaxis Procedures NONE Brief History - From Admission 26-year-old female with a complex medical history including hepatitis C, mitral and aortic valve replacement from endocarditis, respiratory failure, history of trach, history of IV drug use presents to the hospital with concern for worsening an infected wound on her back. The patient reports she was at [facility] in [place] about a month and a half ago and was treated for bacteremia. She reports she had a reaction to Zosyn and ended up with a large wound on her right upper back. She was eventually discharged home to follow-up outpatient with wound care but she states she was not able to do so and has been taken care of the wound by herself at home. Over the past few days she noticed the wound has been draining foul purulence. She denies fevers or chills. She reports significant discomfort. She states she recently moved back to the [facility]. She has a doctor in [place]. She states the last time she used any drugs was in 2015 prior to valve replacement. CBC/BMP: 05/09/17 0718 05/09/17 0718 Significant Findings Laboratory Tests Test 05/07/17 08:25 05/08/17 06:05 05/09/17 07:18 Red Blood Count 3.38 MIL/MM3 (4.00-5.30) 3.39 MIL/MM3 (4.00-5.30) 3.42 MIL/MM3 (4.00-5.30) Hemoglobin 10.1 GM/DL (11.6-15.3) 10.4 GM/DL (11.6-15.3) 10.9 GM/DL (11.6-15.3) Hematocrit 31.0 % (35.0-46.0) 31.5 % (35.0-46.0) 31.4 % (35.0-46.0) Platelet Count 533 TH/MM3 (150-450) 643 TH/MM3 (150-450) 781 TH/MM3 (150-450) Eosinophils (%) (Auto) 5.1 % (0.0-4.0) 9.2 % (0.0-4.0) 7.7 % (0.0-4.0) Prothrombin Time 17.2 SEC (9.8-11.6) 18.2 SEC (9.8-11.6) 19.2 SEC (9.8-11.6) Alkaline Phosphatase 156 U/L (45-117) 151 U/L (45-117) 159 U/L (45-117) Aspartate Amino Transf (AST/SGOT) 11 U/L (15-37) Estimat Glomerular Filtration Rate 75 ML/MIN (>89) 74 ML/MIN (>89) 78 ML/MIN (>89) Monocytes (%) (Auto) 9.3 % (0.0-8.0) 10.2 % (0.0-8.0) Eosinophils # (Auto) 0.8 TH/MM3 (0-0.4) 0.6 TH/MM3 (0-0.4) Mean Platelet Volume 6.8 FL (7.0-11.0) Basophils (%) (Auto) 2.2 % (0.0-2.0) Total Protein 8.9 GM/DL (6.4-8.2) Imaging Last Impressions Chest X-Ray 04/29/17 0000 Signed Impressions: Service Date/Time: Saturday, April 29, 2017 19:23 - CONCLUSION: The lungs are clear. Stable right lateral pleural thickening. Andrey Virk MD Myocardial Perfusion Scan Nuc Med 04/28/17 0600 Signed Impressions: Service Date/Time: Friday, April 28, 2017 10:45 - CONCLUSION: 1. 20-30%% redistribution in the high anterolateral wall. Findings could represent ischemia at the watershed area between the LAD and circumflex. 2. Adequate wall motion throughout with an estimated ejection fraction of 61%% RISK CATEGORY: Intermediate (1-3%% Annual Mortality Rate) Gonzalez Tolliver MD Head CT 04/26/17 0000 Signed Impressions: Service Date/Time: Wednesday, April 26, 2017 13:09 - CONCLUSION: 2 old areas of encephalomalacia on the right side. No evidence of acute hemorrhage, edema, mass, or mass effect. Keanu Monahan MD CT Angiography 04/26/17 0000 Signed Impressions: Service Date/Time: Wednesday, April 26, 2017 11:29 - CONCLUSION: Normal examination with no evidence of pulmonary embolism. Minimal atelectasis scarring both lung bases. Keanu Monahan MD PE at Discharge GENERAL: IN No ACUTE distress. NO ACTIVE NASAL BLEEDING TODAY SKIN: There is an open ulcer with erythema at the base and surrounding the ulcer on the right upper back. Has been picking around her eyes and around her nose on her face and her cheek HEAD: Atraumatic. Normocephalic. No temporal or scalp tenderness. EYES: Pupils equal round and reactive. Extraocular motions intact. No scleral icterus. No injection or drainage. ENT: Nose without bleeding, purulent drainage or septal hematoma. Throat without erythema, tonsillar hypertrophy or exudate. Uvula midline. Airway patent. Patient has been picking around her eyes and around her nose and on her face and her cheeks NECK: Trachea midline. No JVD or lymphadenopathy. Supple, nontender, no meningeal signs. CARDIOVASCULAR: Normal rate. Regular rhythm. Mechanical click noted. S1, S2 NO S3 OR S4 NO HEAVE OR THRILL RESPIRATORY: Clear to auscultation. Breath sounds equal bilaterally. No wheezes , rales, or rhonchi. GASTROINTESTINAL: Abdomen soft, non-tender, nondistended. No hepato-splenomegaly , or palpable masses. No guarding. MUSCULOSKELETAL: Extremities without clubbing, cyanosis, or edema. No joint tenderness, effusion, or edema noted. NEUROLOGICAL: Awake and alert. Cranial nerves II through XII intact. Motor and sensory grossly within normal limits. Five out of 5 muscle strength in all muscle groups. Normal speech. PSYCH: Slightly flattened affect. Insight and judgment is abnormal. Mood and behavior is INappropriate Pt update on day of discharge Patient says she is feeling well. Denies any chest pain or shortness of breath. Denies epistaxis. Hospital Course 05/09Patient has a prescription for Lovenox 100 units subcutaneous daily at home. Discharged on warfarin. Follow-up with primary care to check INR. Lovenox was held due to epistaxis. Resume IV heparin drip after epistaxis has resolved. Consult ENT. Monitor hemoglobin. Hemoglobin slowly trending down from 10.8-9.9-9.8-9.7. Transfuse as needed for hemoglobin less than 8 if active bleeding, symptomatic anemia, goal of hemoglobin more than 9. 05/01 appreciate ENT consultation, recommendations noted. At this time I will start the patient on IV heparin drip since the patient is a high risk for thrombus formation given mechanical valve. Heparin drip will be continued 24 hours and if there is no bleeding then the patient will likely be safe to be switched to Lovenox subcutaneously. I will order fibrinogen, LDH and haptoglobin to rule out DIC. SEEN BY ENT WANTS TO HOLD ANTICOAGULATION ONE MORE DAY WILL RESTART ON 10 WITH HEPARIN DRIP AND COUMADIN INCREASED TO 7.5 TODAY 05-04 RESOLVED SOME INTERMITTENT BLEEDING ON 05-05 AND 05-06 MONITOR AM LABS Assessment and Plan Assessment and Plan Sepsis/fever Unclear etiology. Chest x-ray negative for infiltrates, UA negative. Suspect cellulitis of the right upper back. ID consulted. As procedure recommendations. Continue IV vancomycin IV Levaquin. Monitor blood cultures Monitor white blood cell count Check 2D echocardiogram. Sepsis seems to be improving with improved tachycardia and resolved leukocytosis. 05/01 continue IV antibiotics as per ID. The patient still having low-grade fevers, however these are improving. Blood cultures negative 2.-ANTIBIOTICS STOPPED PER ID Acute hypercarbic respiratory failure. Now resolved. As per medical records patient with CO2 retention which improved on repeat ABG. The patient was transitioned back from nonrebreather mask to nasal cannula. Etiology unclear. - wean O2 as tolerated. - standing and as needed nebs. - IS. - encourage ambulation. 04/29 much improved. Continue supplemental oxygen as tolerated. Acute chest pain Left-sided. Family history significant for CAD. EKG without acute ischemic changes. Trops peaked at 0.07. CTA negative. Cardiology consult appreciated. Stress test 04/28 showed: 20-30% redistribution in the high anterolateral wall; Findings could represent ischemia at the watershed area between the LAD and circumflex; Adequate wall motion throughout with an estimated ejection fraction of 61%. Discussed results with cardiology and radiology. Continue telemetry. 04/29 nuclear stress testing with 20-30% with distribution height anterolateral wall.. Findings could represent ischemia at the watershed area between the LAD and the circumflex. We will obtain chest x-ray since patient is having no fevers. Possible chest pain could be secondary to pneumonia versus skin lesion in the right upper back. 04/30 cardiology recommended medical management. Consider noncardiac chest pain etiologies. Back wound Reportedly started as reaction to Zosyn. Patient has been caring for it herself. Did not follow up outpatient with wound care. Wound nurse recommendations appreciated. Seems to be clean and without evidence of infection. Wound culture with normal heath. - wound care as recommended by wound nurse. -Initially started on IV vancomycin. - Pain control with a bowel regimen. Vancomycin discontinued. - follow blood cultures, NGTD. 04/01 I will consult infectious disease and start the patient IV outpatient antibiotic therapy given no fevers. Suspect cellulitis of the right upper back wound. Continue antibiotics as above.-- ANTIBIOTICS STOPPED BY ID H/O endocarditis Recently treated at [facility] in [place] for bacteremia. - Repeat blood cultures. NGTD. - cardiology following. Systolic CHF, chronic No evidence of fluid overload at this time. Most recent echo in out system with normal EF. - Continue metoprolol. - Hold lisinopril and Aldactone due to low blood pressure. Resume when appropriate. History of heart valve replacement On Lovenox. States Coumadin did not work for her. 04/30 hold Lovenox due to recurrent epistaxis. Once epistaxis stops, will likely resume IV heparin drip. We will transition back to Lovenox once epistaxis has been evaluated by ENT. 05/01 start Iv heparin drip - if no further epistaxis the patient may be placed back on Lovenox.-- WAS ON HOLD DUE TO NASAL BLEEDING RELOADING COUMADIN GOAL 2.0 TO 3.0 Migraines The patient stated that she has had migraines since she developed brain hematomas this past summer. - Pain control as needed. 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 PCP Follow-up New Medications: Warfarin (Coumadin) 7.5 Mg Tab 5 MG PO DAILY@1600 for Blood Clot Prevention for 30 Days, TAB You will need to followup with your doctor to check warfarin level. Continued Medications: Aspirin (Aspirin Low Dose) 81 Mg Chew 81 MG CHEW DAILY, TAB 0 Refills Enoxaparin Inj (Lovenox Inj) 100 Mg/Ml Syr 100 MG SQ DAILY for Blood Clot Prevention, SYRINGE 0 Refills Ferrous Sulfate Liq Drops (Iron Supplement Childrens Liq Drops) 15 Mg/Ml Drops 15 MG PO BID for Nutritional Supplement, #1 BOTTLE 0 Refills Fluoxetine (Prozac) 10 Mg Cap 20 MG PO DAILY, #30 CAP 0 Refills Lorazepam (Ativan) 1 Mg Tab 1 MG PO BID PRN for ANXIETY AND/OR AGITATION, TAB 0 Refills Metoprolol Succinate ER 24 HR (Metoprolol Succinate ER 24 HR) 25 Mg Tab 12.5 MG PO BID, #30 TAB 0 Refills Oxycodone-Acetaminophen (Oxycodone-Acetaminophen) 10-325 mg Tab 1 TAB PO Q4H PRN for PAIN, TAB 0 Refills Pantoprazole (Protonix) 40 Mg Tab 40 MG PO DAILY for Reflux, #30 TAB 0 Refills Topiramate (Topamax) 50 Mg Tab 50 MG PO BID for Control Seizures, #60 TAB 0 Refills Discontinued Medications: Lisinopril (Lisinopril) 10 Mg Tab 10 MG PO DAILY, #30 TAB 0 Refills Spironolactone (Aldactone) 25 Mg Tab 25 MG PO BIDPC, #60 TAB 0 Refills Roberto Vanessa MD May 09, 2017 23:29
== END 2017-05-09 13:49 | disposition home or self-care (01) | DRG 871 ==
LOC: NEPC 18:07 → NEDA 22:15 → N05A 04-25 02:00
PROVIDERS: ADMIT Family Medicine; ATTEND Internal Medicine
DX: A41.9 Sepsis, unspecified organism (principal); J96.02 Acute respiratory failure with hypercapnia; L03.312 Cellulitis of back [any part except buttock and flank]; E87.2 Acidosis; I50.22 Chronic systolic (congestive) heart failure; L98.429 Non-pressure chronic ulcer of back with unspecified severity; Z95.2 Presence of prosthetic heart valve; R04.0 Epistaxis; F41.9 Anxiety disorder, unspecified; R07.89 Other chest pain; D64.9 Anemia, unspecified; G43.909 Migraine, unspecified, not intractable, without status migrainosus; Z95.0 Presence of cardiac pacemaker; Z88.1 Allergy status to other antibiotic agents; Z88.5 Allergy status to narcotic agent; Z88.8 Allergy status to other drugs, medicaments and biological substances; Z76.5 Malingerer [conscious simulation]; Z82.49 Family history of ischemic heart disease and other diseases of the circulatory system; Z79.01 Long term (current) use of anticoagulants; Z86.14 Personal history of Methicillin resistant Staphylococcus aureus infection; Z88.0 Allergy status to penicillin
CPT/HCPCS: 36600; 70450; 71045; 71046; 71275; 76937; 78452; 80048; 80053; 80076; 80202; 80307; 81001; 82272; 82805; 83010; 83036; 83605; 83615; 83735; 84100; 84439; 84443; 84484; 85014; 85018; 85025; 85027; 85384; 85610; 85730; 87040; 87070; 87205; 93005; 93017; 93306; 94150; 94640; 94664; 96365; 96375; A9502; J1170; J1644; J1650; J1885; J1956; J2405; J2785; J3370; J7030; J7050; Q9967

== ENCOUNTER → 2017-06-07 | Emergency (ER) | payer MEDICAID ==
[~2017-06-07] VITALS: Ht 152.4 cm; Wt 68.0 kg
[~2017-06-07] MED LIST changes: +ASPI81CH6 CHEW; +ASPIRIN 81 MG CHEW TAB PO ONE; -CIPR500T4 PO; -CLAR500 PO; +COUM7.5T PO; -ECASA PO; +ENOX100P SQ; +FERR15DR6 PO; +FLUO-1 PO; +HYDROmorphone HCL PF 0.5 MG/0.5 ML SYRINGE IV PUSH ONE; +KETOROLAC TROMETHAMINE 30 MG/ML (IVP) VIAL IV PUSH ONE; -LEVE500S TUBE; +LISI2.5T3 PO; +LORA-474 PO; +METH500T3 PO; +METO1TAB42 PO; -MIDO5 PO; +ONDANSETRON HCL 4 MG/2 ML VIAL IV PUSH ONE; +OXYC1TAB36 PO; -PANT20 PO; -PERC10TA27 PO; -PROM25TA5 PO; +PROT40TA PO; +SODIUM CHLORIDE 0.9% FLUSH 10 ML FLUSH IVF PRN; +SPIR25TA PO; -SPIR50 PO; +TOPA50TA7 PO; -TOPI25 PO; +VITA500012 PO
[2017-06-07 20:13] VITALS: BP 119/74; PULSE 80; RESP 18; TEMP 99.2; O2SAT 100
--- NOTE | 2017-06-07 21:05 | PD ---
HPI Chief Complaint: Chest Pain Time Seen by Provider: 20:41 Travel History International Travel<30 days: No Contact w/Intl Traveler<30days: No Traveled to known affect area: No History of Present Illness HPI 26-year-old female with history of IVDA, endocarditis, mechanical tricuspid and aortic valve replacement, pacemaker insertion presents to the ED for evaluation of 1 week history of "pounding heartbeat", 2 day history of 8/10 substernal chest pain, S OB and nausea. Patient states the pain is worsened by lying down. She states that she feels as if her pacemaker is "stabbing me." She denies fever, chills, decreased appetite, changes in bowel habits, dysuria, back pain. She states she has been noncompliant with Coumadin. She is followed by doctors in [place]. PFSH Past Medical History Hx Anticoagulant Therapy: Yes (pacer, mechanical valves, hx blood clots in lungs and arm) ADHD: No Blood Disorders: No Anxiety: Yes Depression: Yes Heart Rhythm Problems: No Cancer: No Cardiovascular Problems: Yes (ENDOCARDITIS) Chemotherapy: No Chest Pain: Yes Congestive Heart Failure: No Cerebrovascular Accident: Yes (2 strokes ) Diabetes: No Diminished Hearing: No Deep Vein Thrombosis: Yes (arm; pulmonary embolism-R lung; ) Endocrine: No Gastrointestinal Disorders: Yes (ASCITES SEPTEMBER 2013) GERD: Yes Genitourinary: Yes Immune Disorder: No Implanted Vascular Access Dvce: Yes (ARTIFICIAL HEART VALVES) Musculoskeletal: Yes Neurologic: Yes Psychiatric: Yes Reproductive: Yes (Ovarian cyst.) Respiratory: No Immunizations Current: Yes Migraines: Yes Seizures: Yes Thyroid Disease: No Ulcer: No ?: Not LMP: 05/31/17 : 1 Para: 1 Ovarian Cysts: Yes (ovarian torsion ) Past Surgical History Abdominal Surgery: Yes ( splenectomy, paracentesis (2014)) Appendectomy: Yes Body Medical Devices: Prosthetic mitral/ tricuspid valves. also states wire in chest cavity Cardiac Surgery: Yes (Open heart surgery (2010); Tricuspid and mitral valve replacement) Section: Yes Cholecystectomy: Yes Ear Surgery: No Endocrine Surgery: No Eye Surgery: No Genitourinary Surgery: Yes Gynecologic Surgery: Yes ( at age 17) Hysterectomy: Yes Oral Surgery: Yes (WISDOM) Pacemaker: Yes Thoracic Surgery: No Valve Replacement: Yes (MITRAL TRICUSPID) Other Surgery: Yes (left sided facial sx @age 2) Social History Alcohol Use: No Tobacco Use: No (NEVER) Substance Use: No Allergies-Medications (Allergen,Severity, Reaction): Coded Allergies: Fish Containing Products (Unverified Allergy, Severe, THROAT SWOLLEN/HIVES , 06/07/17) codeine (Unverified Allergy, Severe, HIVES/VOMITING, 06/07/17) gabapentin (Unverified Allergy, Severe, Hives, 06/07/17) morphine (Unverified Allergy, Severe, Hives, 06/07/17) naproxen (Unverified Allergy, Severe, Hives, 06/07/17) piperacillin (Verified Allergy, Severe, Hives, 06/07/17) tazobactam (Verified Allergy, Severe, Hives, 06/07/17) Reported Meds & Prescriptions Reported Meds & Active Scripts Active Coumadin (Warfarin) 7.5 Mg Tab 5 Mg PO DAILY@1600 30 Days You will need to followup with your doctor to check warfarin level. Reported Methocarbamol 500 Mg Tab 500 Mg PO TID Ergocalciferol 50,000 Unit Cap 50,000 Units PO WEEKLY Lisinopril 2.5 Mg Tab 2.5 Mg PO DAILY Spironolactone 25 Mg Tab 25 Mg PO BID Topamax (Topiramate) 50 Mg Tab 50 Mg PO BID Protonix (Pantoprazole Sodium) 40 Mg Tab 40 Mg PO DAILY Iron Supplement Childrens Liq Drops (Ferrous Sulfate) 15 Mg/Ml Drops 15 Mg PO BID Oxycodone-Acetaminophen 10-325 mg Tab 1 Tab PO Q4H PRN Aspirin Low Dose (Aspirin) 81 Mg Chew 81 Mg CHEW DAILY Lovenox Inj (Enoxaparin Sodium) 100 Mg/Ml Syr 100 Mg SQ DAILY Prozac (Fluoxetine HCl) 10 Mg Cap 20 Mg PO DAILY Ativan (Lorazepam) 1 Mg Tab 1 Mg PO BID PRN Metoprolol Succinate ER 24 HR (Metoprolol Succinate) 25 Mg Tab 12.5 Mg PO BID Review of Systems Except as stated in HPI: all other systems reviewed are Neg Physical Exam Narrative GENERAL: Well-nourished, well-developed white female no acute distress. SKIN: Focused skin assessment warm/dry. Multiple tattoos noted. Of note the patient has a brand-new, large tattoo on the left upper extremity with localized erythema. Pacemaker in the left chest HEAD: Normocephalic. EYES: No scleral icterus. No injection or drainage. NECK: Supple, trachea midline. No JVD or lymphadenopathy. CARDIOVASCULAR: Regular rate and rhythm without murmurs, gallops, or rubs. CHEST: Tender to palpation over the pacemaker pocket. Without deformity or crepitus. No retractions or use of accessory muscles. RESPIRATORY: Breath sounds clear and equal bilaterally. No accessory muscle use. GASTROINTESTINAL: Abdomen soft, non-tender, nondistended. Active bowel sounds. MUSCULOSKELETAL: No cyanosis, or edema. BACK: Nontender without obvious deformity. No CVA tenderness. Data Data Last Documented VS Orders Orders Electrocardiogram (06/07/17 19:50) Complete Blood Count With Diff (06/07/17 19:50) Basic Metabolic Panel (Bmp) (06/07/17 19:50) Ckmb (Isoenzyme) Profile (06/07/17 19:50) Troponin I (06/07/17 19:50) Iv Access Insert/Monitor (06/07/17 19:50) Ecg Monitoring (06/07/17 19:50) Oxygen Administration (06/07/17 19:50) Oximetry (06/07/17 19:50) Chest, Pa & Lat (06/07/17 19:50) Magnesium (Mg) (06/07/17 21:05) Prothrombin Time / Inr (Pt) (06/07/17 21:05) Act Partial Throm Time (Ptt) (06/07/17 21:05) Bilateral Bp Monitoring (06/07/17 21:05) Aspirin Chew (Aspirin Chew) (06/07/17 21:15) Sodium Chloride 0.9% Flush (Ns Flush) (06/07/17 21:15) Urinalysis - C+S If Indicated (06/07/17 21:08) Drug Screen, Random Urine (06/07/17 21:08) D-Dimer (06/07/17 21:08) Blood Culture (06/07/17 21:14) Ondansetron Inj (Zofran Inj) (06/07/17 21:30) Ketorolac Inj (Toradol Inj) (06/07/17 21:45) Ed Urine Pregnancytest Poc (06/07/17 22:49) Hydromorphone Pf Inj (Dilaudid Pf Inj) (06/07/17 23:00) Labs Laboratory Tests Test 06/07/17 20:12 06/07/17 21:30 White Blood Count 7.0 TH/MM3 Red Blood Count 3.84 MIL/MM3 Hemoglobin 11.2 GM/DL Hematocrit 34.0 % Mean Corpuscular Volume 88.4 FL Mean Corpuscular Hemoglobin 29.1 PG Mean Corpuscular Hemoglobin Concent 32.9 % Red Cell Distribution Width 14.0 % Platelet Count 570 TH/MM3 Mean Platelet Volume 7.6 FL Neutrophils (%) (Auto) 37.3 % Lymphocytes (%) (Auto) 43.4 % Monocytes (%) (Auto) 12.9 % Eosinophils (%) (Auto) 4.9 % Basophils (%) (Auto) 1.5 % Neutrophils # (Auto) 2.6 TH/MM3 Lymphocytes # (Auto) 3.0 TH/MM3 Monocytes # (Auto) 0.9 TH/MM3 Eosinophils # (Auto) 0.3 TH/MM3 Basophils # (Auto) 0.1 TH/MM3 CBC Comment DIFF FINAL Differential Comment Blood Urea Nitrogen 17 MG/DL Creatinine 0.89 MG/DL Random Glucose 75 MG/DL Calcium Level 8.9 MG/DL Sodium Level 137 MEQ/L Potassium Level 3.9 MEQ/L Chloride Level 104 MEQ/L Carbon Dioxide Level 27.5 MEQ/L Anion Gap 6 MEQ/L Estimat Glomerular Filtration Rate 76 ML/MIN Magnesium Level 2.1 MG/DL Total Creatine Kinase 71 U/L Troponin I LESS THAN 0.02 NG/ML Prothrombin Time 10.8 SEC Prothromb Time International Ratio 1.1 RATIO Activated Partial Thromboplast Time 27.1 SEC D-Dimer Quantitative (PE/DVT) 1.50 MG/L FEU Urine Color YELLOW Urine Turbidity CLEAR Urine pH 6.5 Urine Specific Ryder 1.021 Urine Protein NEG mg/dL Urine Glucose (UA) NEG mg/dL Urine Ketones NEG mg/dL Urine Occult Blood NEG Urine Nitrite NEG Urine Bilirubin NEG Urine Urobilinogen 2.0 MG/DL Urine Leukocyte Esterase NEG Urine WBC 1 /hpf Urine Squamous Epithelial Cells 8 /hpf Urine Bacteria RARE /hpf Urine Mucus FEW /lpf Microscopic Urinalysis Comment CULT NOT INDICATED Urine Opiates Screen POS Urine Barbiturates Screen NEG Urine Amphetamines Screen NEG Urine Benzodiazepines Screen NEG Urine Cocaine Screen NEG Urine Cannabinoids Screen NEG MDM Medical Decision Making Medical Screen Exam Complete: Yes Emergency Medical Condition: Yes Differential Diagnosis Muscular skeletal chest pain versus medical staff coordinator issue versus ACS versus metabolic derangement versus endocarditis versus other Narrative Course 26-year-old female with history of IVDA, endocarditis, mechanical tricuspid and aortic valve replacement, pacemaker insertion presents to the ED for evaluation of 1 week history of "pounding heartbeat", 2 day history of 8/10 substernal chest pain, SOB and nausea. Patient states the pain is worsened by lying down. She states that she feels as if her pacemaker is "stabbing me." She has been noncompliant with Coumadin. She is followed by doctors in [place]. Patient afebrile on presentation. BP 119/74, pulse 80. Respiratory rate 18, O2 100% on room air. CBC unremarkable. INR 1.1. D-dimer 1.5. CMP unremarkable. Cardiac enzymes negative 1. No culture indicated of the UA. Tox screen positive for opiates. CXR unremarkable. CTA to rule out PE pending. Patient signed out to Dr. Tavares at end of shift. Please see his note for disposition. Lucia Bills Jun 07, 2017 21:05
--- NOTE | 2017-06-07 21:08 | RADRPT ---
EXAM DATE/TIME: 06/07/2017 20:50 [facility] COMPARISON: No previous studies available for comparison. INDICATIONS : Shortness of breath, chest pain on left side. MEDICAL HISTORY : AFIB. SURGICAL HISTORY : CABG. Mechanical valves. ENCOUNTER: Initial ACUITY: 4 - 6 days PAIN SCORE: 8/10 LOCATION: Bilateral chest FINDINGS: No infiltrate, effusion or pneumothorax. Mild bilateral pleural scarring again seen. Patient has had previous median sternotomy. Valve replacement changes are again noted. There is a cardiac pacer again seen. CONCLUSION: No acute cardiopulmonary disease. Alex Barboza MD on June 07, 2017 at 21:05 Board Certified Radiologist. This report was verified electronically.
[2017-06-07 21:35] LABS: BICARBONATE 27.5 MEQ/L (21.0-32.0); BLOOD UREA NITROGEN 17 MG/DL (7-18); CALCIUM 8.9 MG/DL (8.5-10.1); CHLORIDE 104 MEQ/L (98-107); CREATININE 0.89 MG/DL (0.50-1.00); GLOMERULAR FILTRATION RATE 76 ML/MIN (>89); GLUCOSE,RANDOM 75 MG/DL (74-106); SODIUM (NA) 137 MEQ/L (136-145)
[2017-06-07 21:40] LABS: TROPONIN I LESS THAN 0.02 NG/ML (0.02-0.05)
[2017-06-07 21:45] LABS: AUTOMATED NEUTROPHIL # 2.6 TH/MM3 (1.8-7.7); BASOPHIL # 0.1 TH/MM3 (0-0.2); BASOPHIL % 1.5 % (0.0-2.0); EOSINOPHIL # 0.3 TH/MM3 (0-0.4); EOSINOPHIL % 4.9 % (0.0-4.0); HEMOGLOBIN 11.2 GM/DL (11.6-15.3); LYMPH % 43.4 % (9.0-44.0); MEAN CELL VOLUME 88.4 FL (80.0-100.0); MEAN CORPUSCULAR HEMOGLOBIN 29.1 PG (27.0-34.0); MEAN CORPUSCULAR HGB CONC 32.9 % (32.0-36.0); MEAN PLATELET VOLUME 7.6 FL (7.0-11.0); MONO % 12.9 % (0.0-8.0); MONOCYTE # 0.9 TH/MM3 (0-0.9); NEUT % 37.3 % (16.0-70.0); PLATELET COUNT 570 TH/MM3 (150-450); RED BLOOD COUNT 3.84 MIL/MM3 (4.00-5.30)
[2017-06-07 21:54] VITALS: O2SAT 98
[2017-06-07 21:55] LABS: INTERNATIONAL NORMALIZED RATIO 1.1 RATIO; PROTHROMBIN TIME - PATIENT 10.8 SEC (9.8-11.6)
[2017-06-07 22:10] LABS: BACTERIA, URINE RARE /hpf; BILIRUBIN, URINE NEG (NEG); BLOOD, URINE NEG (NEG); GLUCOSE,URINE NEG (NEG); KETONE, URINE NEG (NEG); MUCUS URINE FEW /lpf (OCC); NITRITE,URINE NEG (NEG); PH, URINE 6.5 (5.0-8.5); SQUAMOUS EPITHELIAL CELL URINE 8 /hpf (0-5); URINE COLOR YELLOW (YELLW/STRAW); URINE LEUKOCYTE ESTERASE NEG (NEG)
--- NOTE | 2017-06-08 14:25 | EKG ---
Date Performed: 06/07/2017 Time Performed: 19:58:56 PTAGE: 26 years EKG: ECTOPIC ATRIAL RHYTHM INCOMPLETE RIGHT BUNDLE BRANCH BLOCK ABNORMAL RHYTHM ECG Since PREVIOUS TRACING , no significant change noted PREVIOUS TRACIN04/26/2017 11.11 DOCTOR: Neida Radre Interpretating Date/Time 06/08/2017 14:23:57
== END | disposition home or self-care (01) ==
LOC: NEPC 19:45
DX: R07.9 Chest pain, unspecified (principal); Z79.899 Other long term (current) drug therapy
CPT/HCPCS: 71046; 80048; 80307; 81001; 82550; 83735; 84484; 84703; 85025; 85379; 85610; 85730; 87040; 93005; 96374; 96375; 99285; J1170; J1885; J2405

== ENCOUNTER 2017-06-19 04:40 | Inpatient (IN) | payer MEDICAID ==
[~2017-06-19] VITALS: Ht 152.4 cm; Wt 70.6 kg
[2017-06-19] VITALS (7 sets, daily range): BP systolic 92–112; BP diastolic 46–59; PULSE 67–76; RESP 16–18; TEMP 96.2–98.7; O2SAT 18–99
[~2017-06-19 04:40] MED LIST changes: -ASPIRIN 81 MG CHEW TAB PO ONE; -HYDROmorphone HCL PF 0.5 MG/0.5 ML SYRINGE IV PUSH ONE; -KETOROLAC TROMETHAMINE 30 MG/ML (IVP) VIAL IV PUSH ONE; -ONDANSETRON HCL 4 MG/2 ML VIAL IV PUSH ONE; -SODIUM CHLORIDE 0.9% FLUSH 10 ML FLUSH IVF PRN
[2017-06-19] MEDS ORDERED: SODIUM CHLORIDE 0.9% FLUSH 10 ML FLUSH IV FLUSH PRN (05:30)
[2017-06-19] MEDS ORDERED: ACETAMINOPHEN 325 MG TAB PO PRN (05:30)
[2017-06-19] MEDS ORDERED: Vancomycin Consult Pharmacy 1 EA OTHER SCH (05:30)
[2017-06-19] MEDS ORDERED: NALOXONE HCL 0.4 MG/ML AMP IV PUSH PRN (05:30)
[2017-06-19] MEDS ORDERED: HEPARIN-D5W 25,000 U/250 ML 250 ML IV PRN (05:30)
[2017-06-19] MEDS: ONDANSETRON HCL 4 MG/2 ML VIAL IVP PRN ×2 (06:09→20:52)
[2017-06-19] MEDS ORDERED: traMADol HCL 50 MG TAB PO PRN (06:15)
[2017-06-19] MEDS ORDERED: VANCOMYCIN INJ 1,000 MG in SODIUM CHLOR 0.9% 250 ML INJ 250 ML IV ONE (08:00)
[2017-06-19] MEDS: SODIUM CHLORIDE 0.9% FLUSH 10 ML FLUSH IV FLUSH SCH ×2 (09:10→20:57)
--- NOTE | 2017-06-19 10:04 | HHI.HP ---
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 The patient has a history of prior ischemic stroke with residual left-sided weakness. However she woke up 2 nights ago with complaint of worsening left- sided weakness. She also complained of worsening lower back pain. There has been no change in her speech or vision. No dizziness. The patient states she normally gets chest pain intermittently. There has been no recent changes in the pattern of pain. The patient was seen in the emergency room last week for chest pain but left early because it was taking too long. She denies shortness of breath. She normally takes Lovenox but reports she missed a few doses for the past couple of days. Currently the patient reports the left lower extremity weakness is unchanged. Left arms is closer to baseline. She reports having chills at home but no documented fever, states she has been taking Tylenol for back pain. She adamantly denied any recent IV drug use. She states the last time she used was over 2 years ago. Review of Systems Constitutional: COMPLAINS OF: Chills, DENIES: Fever Respiratory: DENIES: Shortness of breath Cardiovascular: COMPLAINS OF: Chest pain Musculoskeletal: COMPLAINS OF: Joint pain, Muscle aches, Back pain Neurologic: COMPLAINS OF: Abnormal gait, Localized weakness Except as stated in HPI: all other systems reviewed are Neg Past Family Social History Past Medical History History of bacterial endocarditis status post prosthetic mitral/ tricuspid valves in 2000. 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 Apparently the patient had a redo Valve replacements in [address] [facility] History of respiratory failure requiring intubation and tracheostomy History of renal failure History of seizures History of spontaneous bacterial peritonitis History of intracranial abscess Past Surgical History Mitral/Tricuspid Valve Replacement (Bovine/Porcine) Cholecystectomy Splenectomy Liver biopsy Tracheostomy Multiple paracentesis Carpal tunnel surgery R wrist Pacemaker placement Reported Medications Reported Meds & Active Scripts Active Reported Methocarbamol 500 Mg Tab 500 Mg PO TID Topamax (Topiramate) 50 Mg Tab 50 Mg PO BID Protonix (Pantoprazole Sodium) 40 Mg Tab 40 Mg PO DAILY Iron Supplement Childrens Liq Drops (Ferrous Sulfate) 15 Mg/Ml Drops 15 Mg PO BID Oxycodone-Acetaminophen 10-325 mg Tab 1 Tab PO Q4H PRN Aspirin Low Dose (Aspirin) 81 Mg Chew 81 Mg CHEW DAILY Lovenox Inj (Enoxaparin Sodium) 100 Mg/Ml Syr 100 Mg SQ DAILY Prozac (Fluoxetine HCl) 10 Mg Cap 20 Mg PO DAILY Ativan (Lorazepam) 1 Mg Tab 1 Mg PO BID PRN Metoprolol Succinate ER 24 HR (Metoprolol Succinate) 25 Mg Tab 12.5 Mg PO BID Allergies: Coded Allergies: Fish Containing Products (Unverified Allergy, Severe, THROAT SWOLLEN/HIVES , 06/07/17) codeine (Unverified Allergy, Severe, HIVES/VOMITING, 06/07/17) gabapentin (Unverified Allergy, Severe, Hives, 06/07/17) morphine (Unverified Allergy, Severe, Hives, 06/07/17) naproxen (Unverified Allergy, Severe, Hives, 06/07/17) piperacillin (Verified Allergy, Severe, Hives, 06/07/17) tazobactam (Verified Allergy, Severe, Hives, 06/07/17) Family History Mother with history of FL 2. First 1 at 35 years old Brother with a history of FL 1 Social History Patient has a significant history of IV drug use. She states she quit using drugs in 2016. No tobacco or alcohol use. Physical Exam Vital Signs Vital Signs Date Time Temp Pulse Resp B/P (MAP) Pulse Ox O2 Delivery O2 Flow Rate FiO2 06/19/17 06:00 98.3 71 18 107/59 (75) 98 06/19/17 05:03 98.4 76 18 92/46 (61) Physical Exam GENERAL: This is a well-nourished, well-developed patient, in no apparent distress. SKIN: No rashes, ecchymoses or lesions. Cool and dry. HEAD: Atraumatic. Normocephalic. No temporal or scalp tenderness. EYES: Pupils equal round and reactive. Extraocular motions intact. No scleral icterus. No injection or drainage. ENT: Nose without bleeding, purulent drainage or septal hematoma. Throat without erythema, tonsillar hypertrophy or exudate. Uvula midline. Airway patent. NECK: Trachea midline. No JVD or lymphadenopathy. Supple, nontender, no meningeal signs. CARDIOVASCULAR: Regular rate and rhythm without murmurs, gallops, or rubs. RESPIRATORY: Clear to auscultation. Breath sounds equal bilaterally. No wheezes , rales, or rhonchi. GASTROINTESTINAL: Abdomen soft, non-tender, nondistended. No hepato-splenomegaly , or palpable masses. No guarding. MUSCULOSKELETAL: Extremities without clubbing, cyanosis, or edema. Report tenderness to palpation over the lumbar area diffusely. NEUROLOGICAL: Awake and alert. Cranial nerves II through XII intact. Bilateral upper extremities with equal strength. Left lower extremity is about 4+ out of 5 compared to the right which is 5 out of 5. Caprini VTE Risk Assessment Caprini VTE Risk Assessment: Mod/High Risk (score >= 2) Caprini Risk Assessment Model Point Value = 1 Point Value = 2 Point Value = 3 Point Value = 5 Age 41-60 Minor surgery BMI > 25 kg/m2 Swollen legs Varicose veins or History of unexplained or recurrent spontaneous Oral contraceptives or hormone replacement Sepsis (< 1 month) Serious lung disease, including pneumonia (< 1 month) Abnormal pulmonary function Acute myocardial infarction Congestive heart failure (< 1 month) History of inflammatory bowel disease Medical patient at bed rest Age 61-74 Arthroscopic surgery Major open surgery (> 45 min) Laparoscopic surgery (> 45 min) Malignancy Confined to bed (> 72 hours) Immobilizing plaster cast Central venous access Age >= 75 History of VTE Family history of VTE Factor V Leiden Prothrombin [id number] Lupus anticoagulant Anticardiolipin antibodies Elevated serum homocysteine Heparin-induced thrombocytopenia Other congenital or acquired thrombophilia Stroke (< 1 month) Elective arthroplasty Hip, pelvis, or leg fracture Acute spinal cord injury (< 1 month) Prophylaxis Regimen Total Risk Factor Score Risk Level Prophylaxis Regimen 0-1 Low Early ambulation 2 Moderate Order ONE of the following: *Sequential Compression Device (SCD) *Heparin 5000 units SQ BID 3-4 Higher Order ONE of the following medications: *Heparin 5000 units SQ TID *Enoxaparin/Lovenox 40 mg SQ daily (WT < 150 kg, CrCl > 30 mL/min) *Enoxaparin/Lovenox 30 mg SQ daily (WT < 150 kg, CrCl > 10-29 mL/min) *Enoxaparin/Lovenox 30 mg SQ BID (WT < 150 kg, CrCl > 30 mL/min) AND/OR *Sequential Compression Device (SCD) 5 or more Highest Order ONE of the following medications: *Heparin 5000 units SQ TID (Preferred with Epidurals) *Enoxaparin/Lovenox 40 mg SQ daily (WT < 150 kg, CrCl > 30 mL/min) *Enoxaparin/Lovenox 30 mg SQ daily (WT < 150 kg, CrCl > 10-29 mL/min) *Enoxaparin/Lovenox 30 mg SQ BID (WT < 150 kg, CrCl > 30 mL/min) AND *Sequential Compression Device (SCD) Assessment and Plan Problem List: (1) Left-sided weakness ICD Code: R53.1 - Weakness (2) Leukocytosis ICD Code: D72.829 - Elevated white blood cell count, unspecified (3) Intractable abdominal pain ICD Code: R10.9 - Unspecified abdominal pain Status: Acute (4) History of heart valve replacement ICD Code: Z95.2 - Presence of prosthetic heart valve (5) History of endocarditis ICD Code: Z86.79 - History of endocarditis Status: Acute (6) Chronic ischemic right MCA stroke ICD Code: I69.30 - Unspecified sequelae of cerebral infarction Status: Chronic (7) Abnormal urinalysis ICD Code: R82.90 - Unspecified abnormal findings in urine Assessment and Plan 26-year-old female with history of previous stroke with left-sided residual weakness admitted with worsening left-sided weakness. Patient found to have marked leukocytosis. She has a history of IV drug use status post valve replacement. Left-sided weakness: Probably related to prior stroke. Left lower extremity slightly worse compared to right. Head CT with no acute findings. She has a pacemaker and cannot get MRI - Will obtain lumbar CT to rule out radiculopathy or abscess given she reported chills and has a history of IV drug use. Although she adamantly denied any current use. - Physical therapy to evaluate Marked leukocytosis: WBC 34,000 on arrival to the emergency department. Patient reported chills at home. History of IV drug use. Urinalysis concerning for UTI. - Continue empiric antibiotics with vancomycin and cefepime - Follow cultures - ID was consulted from the ED Abnormal urinalysis: Largely asymptomatic. - follow urine cultures. On empiric antibiotics as above. Acute on chronic back pain: Concern for narcotic seeking behavior. - Continue tramadol as needed. Avoid IV pain medications Back wound: Right upper back. Chronic. Has been decreasing in size. Patient Reportedly started as reaction to Zosyn. -Continue routine wound care. H/O endocarditis: Follow blood cultures give a marked leukocytosis. History of heart valve replacement Resume home dose Lovenox. States Coumadin did not work for her. GI prophylaxis: PPI. Stool softener PRN constipation. DVT PPx: Lovenox Physician Certification 2 Midnight Certification Type: Admission for Inpatient Services Order for Inpatient Services The services are ordered in accordance with Medicare regulations or non- Medicare payer requirements, as applicable. In the case of services not specified as inpatient-only, they are appropriately provided as inpatient services in accordance with the 2-midnight benchmark. Estimated LOS (days): 3 days is the estimated time the patient will need to remain in the hospital, assuming treatment plan goals are met and no additional complications. Post-Hospital Plan: Home Jose Amador MD Jun 19, 2017 10:04
[2017-06-19 10:50] LABS: AUTOMATED NEUTROPHIL # 18.2 TH/MM3 (1.8-7.7); BASOPHIL # 0.1 TH/MM3 (0-0.2); BASOPHIL % 0.4 % (0.0-2.0); EOSINOPHIL # 0.7 TH/MM3 (0-0.4); HEMOGLOBIN 10.6 GM/DL (11.6-15.3); LYMPH % 16.4 % (9.0-44.0); MEAN CELL VOLUME 87.3 FL (80.0-100.0); MEAN CORPUSCULAR HEMOGLOBIN 28.1 PG (27.0-34.0); MEAN CORPUSCULAR HGB CONC 32.2 % (32.0-36.0); MEAN PLATELET VOLUME 8.1 FL (7.0-11.0); MONO % 5.6 % (0.0-8.0); MONOCYTE # 1.4 TH/MM3 (0-0.9); NEUT % 74.6 % (16.0-70.0); PLATELET COUNT 365 TH/MM3 (150-450); RED BLOOD COUNT 3.77 MIL/MM3 (4.00-5.30); RED CELL DISTRIBUTION WIDTH 13.9 % (11.6-17.2); WHITE BLOOD COUNT 24.5 TH/MM3 (4.0-11.0)
[2017-06-19] MEDS: CEFEPIME INJ 1,000 MG in SODIUM CHLORIDE 0.9% INJ 100 ML IV SCH ×2 (11:22→23:34)
--- NOTE | 2017-06-19 11:22 | RADRPT ---
EXAM DATE/TIME: 06/19/2017 10:53 [facility] COMPARISON: No previous studies available for comparison. INDICATIONS : Left lower extremity weakness. IV CONTRAST: 98 cc Omnipaque 350 (iohexol) IV RADIATION DOSE: 33.13 CTDIvol (mGy) MEDICAL HISTORY : Cerebrovascular disease. Seizures. Deep venous thrombosis.Hepatitis C SURGICAL HISTORY : Appendectomy. Hysterectomy.Cholecystectomy.Pacemaker ENCOUNTER: Initial ACUITY: 1 day PAIN SCALE: 0/10 LOCATION: Lumbar TECHNIQUE: Volumetric scanning of the lumbar spine was performed. Multiplanar reconstructions in the sagittal, coronal and oblique axial planes were performed. Using automated exposure control and adjustment of the mA and/or kV according to patient size, radiation dose was kept as low as reasonably achievable t o obtain optimal diagnostic quality images. DICOM format image data is available electronically for review and comparison. FINDINGS: The right SI joint is fused. There is intervertebral disc space narrowing and irregularity at L5-S1 c onsistent with chronic degenerative disease CONUS MEDULLARIS: Normal. PARASPINAL SOFT TISSUES: Normal. LUMBAR CORD: Normal. DURAL SAC: Normal. L1-L2: The disc, uncovertebral joints, central canal, foramina, and facets are normal. L2-L3: The disc, uncovertebral joints, central canal, foramina, and facets are normal. L3-L4: The disc, uncovertebral joints, central canal, foramina, and facets are normal. L4-L5: The disc, uncovertebral joints, central canal, foramina, and facets are normal. L5-S1: The disc, uncovertebral joints, central canal, foramina, and facets are normal. CONCLUSION: Normal examination except for degenerative disease at the L5-S1 level. Keanu Monahan MD on June 19, 2017 at 11:15 Board Certified Radiologist. This report was verified electronically.
[2017-06-19 11:27] LABS: ALBUMIN 3.3 GM/DL (3.4-5.0); AST (GOT) 47 U/L (15-37); BICARBONATE 26.2 MEQ/L (21.0-32.0); BLOOD UREA NITROGEN 21 MG/DL (7-18); CALCIUM 8.4 MG/DL (8.5-10.1); CHLORIDE 106 MEQ/L (98-107); CREATININE 0.86 MG/DL (0.50-1.00); GLOMERULAR FILTRATION RATE 79 ML/MIN (>89); GLUCOSE,RANDOM 111 MG/DL (74-106); SODIUM (NA) 139 MEQ/L (136-145)
[2017-06-19 11:32] LABS: ALKALINE PHOSPHATASE 174 U/L (45-117); ALT (GPT) 57 U/L (10-53); TOTAL BILIRUBIN ADULT 1.1 MG/DL (0.2-1.0); TOTAL PROTEIN 7.1 GM/DL (6.4-8.2); TROPONIN I 0.04 NG/ML (0.02-0.05)
[2017-06-19] MEDS ORDERED: IOHEXOL 350 MG/ML 10 ML VIAL (for RAD DIAG) IVCONTRAST ONE (12:09)
[2017-06-19] MEDS: METHOCARBAMOL 500 MG TAB PO SCH ×2 (15:32→23:32)
[2017-06-19] MEDS: ENOXAPARIN SODIUM 100 MG/ML SYRINGE SQ SCH (15:33)
--- NOTE | 2017-06-19 16:07 | ECHRPT ---
Indication: ENDOCARDITIS CONCLUSIONS Normal left ventricular size. Wall thickness is normal. The left ventricular systolic function is normal with an estimated ejection fraction in the range of 55-60%. The left atrial size is moderately dilated. The right atrial size is moderately dilated. The interatrial septum not well visualized. The aortic root and proximal ascending aorta are not well visualized. Normally functioning mechanical mitral valve prosthesis. Trace to mild aortic valve regurgitation. The tricuspid prosthesis is normal to two-dimensional, color flow and Doppler interrogation. There is mild stenosis of the tricuspid valve prosthesis, mean gradient 5 mmHg. BP: 107 / 59 HR: 76 Rhythm: Sinus MEASUREMENTS (Male / Female) Normal Values Technical Quality:Fair 2D ECHO LV Diastolic Diameter PLAX 5.3 cm 4.2 - 5.9 / 3.9 - 5.3 cm LV Systolic Diameter PLAX 4.0 cm IVS Diastolic Thickness 1.0 cm 0.6 - 1.0 / 0.6 - 0.9 cm LVPW Diastolic Thickness 1.0 cm 0.6 - 1.0 / 0.6 - 0.9 cm LV Relative Wall Thickness 0.4 RV Internal Dim ED PLAX 2.7 cm LVOT Diameter 1.9 cm Aortic Root Diameter 2.5 cm LA Systolic Diameter LX 3.6 cm 3.0 - 4.0 / 2.7 - 3.8 cm M-MODE AV Cusp Separation MM 2.0 cm DOPPLER AV Peak Velocity 164.0 cm/s AV Peak Gradient 10.8 mmHg AV Mean Gradient 6.0 mmHg AV Velocity Time Integral 34.9 cm LVOT Peak Velocity 87.2 cm/s LVOT Peak Gradient 3.0 mmHg LVOT Velocity Time Integral 19.2 cm AV Area Cont Eq vti 1.6 cm AV Area Cont Eq pk 1.5 cm MV Peak Velocity 207.7 cm/s MV Peak Gradient 17.3 mmHg MV Mean Velocity 112.0 cm/s MV Mean Gradient 6.3 mmHg MV Area PHT 2.1 cm Mitral E Point Velocity 192.0 cm/s TV Peak Velocity 146.0 cm/s TR Peak Velocity 152.0 cm/s TR Peak Gradient 9.2 mmHg PV Peak Velocity 62.4 cm/s PV Peak Gradient 1.6 mmHg FINDINGS LEFT VENTRICLE Normal left ventricular size. Wall thickness is normal. The left ventricular systolic function is normal with an estimated ejection fraction in the range of 55-60%. RIGHT VENTRICLE Normal right ventricular size and systolic function. LEFT ATRIUM The left atrial size is moderately dilated. RIGHT ATRIUM The right atrial size is moderately dilated. ATRIAL SEPTUM The interatrial septum not well visualized. AORTA The aortic root and proximal ascending aorta are not well visualized. MITRAL VALVE Normally functioning mechanical mitral valve prosthesis. AORTIC VALVE Trileaflet aortic valve. Trace to mild aortic valve regurgitation. TRICUSPID VALVE The tricuspid prosthesis is normal to two-dimensional, color flow and Doppler interrogation. There is mild stenosis of the tricuspid valve prosthesis, mean gradient 5 mmHg. PULMONARY VALVE No pulmonary valve regurgitation or stenosis. VESSELS The inferior vena cava is normal in size. PERICARDIUM No pericardial effusion. Keanu Lauren MD, FACC (Electronically Signed) Final Date:19 June 2017 16:06
--- NOTE | 2017-06-19 16:08 | PD.ID.CON ---
History of Present Illness Service ID Consult Requested By Dr Sims Reason for Consult endocarditis Primary Care Physician Unknown Diagnoses: History of Present Illness 26 yo female with knwn h/o endocarditis, compliacated with embolic strokes sp MVR/AVR h/o PSAE and vir sttrep bacteremias last time M abscessus bacteremia she apparently presrted with fever last month and had negative blood clx and negative 2 D echo she was discharge with recommendation not to cont abx and have a TAO is her fever comes back This time pt presented with malaise, subjective fever and nausea, vomiting HS ehad no fever on presentation, but her WBC was of 37 K She cont to have nausea. No resp symptoms and negative CXR L spine MRI negative SHe also was co worsening L side weakness from dariana baseline, but non contrast CT of the head showed no new findings Started cefepime, vancomycin Review of Systems Except as stated in HPI: all other systems reviewed are Neg Past Family Social History Allergies: Coded Allergies: Fish Containing Products (Unverified Allergy, Severe, THROAT SWOLLEN/HIVES , 06/07/17) codeine (Unverified Allergy, Severe, HIVES/VOMITING, 06/07/17) gabapentin (Unverified Allergy, Severe, Hives, 06/07/17) morphine (Unverified Allergy, Severe, Hives, 06/07/17) naproxen (Unverified Allergy, Severe, Hives, 06/07/17) piperacillin (Verified Allergy, Severe, Hives, 06/07/17) tazobactam (Verified Allergy, Severe, Hives, 06/07/17) Past Medical History IVDU [employer] [place] valve endocarditis prosthetic valve endocaditis, MSSA Past Surgical History s/p mitral and tricuspid valve replacement splenectony cholecystectomy appendectomy plastic surgery dog bite repair Active Ordered Medications Medications where reviewed in EMR Antibiotics Include: cefepime vancomycin Family History reviewed. non contributory Social History No Tobacco. No ETOH. denies current use of Illicit Drugs. Physical Exam Vital Signs Vital Signs Date Time Temp Pulse Resp B/P (MAP) Pulse Ox O2 Delivery O2 Flow Rate FiO2 06/19/17 14:30 98.6 70 16 95/53 (67) 99 06/19/17 12:00 67 06/19/17 12:00 98.4 67 17 112/51 (71) 18 06/19/17 12:00 67 06/19/17 08:00 72 06/19/17 08:00 72 06/19/17 08:00 98.2 72 17 105/55 (72) 96 06/19/17 07:00 98 Room Air 06/19/17 06:00 98.3 71 18 107/59 (75) 98 06/19/17 05:03 98.4 76 18 92/46 (61) Physical Exam CONSTITUTIONAL/GENERAL: This is an adequately nourished patient, in no apparent distress. TUBES/LINES/DRAINS: SKIN: No jaundice, rashes, or lesions. Ecchymoses on upper extremities. No wounds seen anteriorly. Skin temperature appropriate. Not diaphoretic. HEAD: Atraumatic. Normocephalic. EYES: Pupils equal and round and reactive. Extraocular motions intact. No scleral icterus. No injection or drainage. Fundi not examined. ENT: Hearing grossly normal. Nose without bleeding or purulent drainage. Throat without visible erythema, exudates, masses, or lesions. NECK: Trachea midline. Supple, nontender. No palpable CARDIOVASCULAR: Regular rate and rhythm without murmurs, gallops, or rubs. No JVD. Peripheral pulses symmetric. Mechanical heart sounds Pacer in place L chest w/o skin changes RESPIRATORY/CHEST: Symmetric, unlabored respirations. Clear to auscultation. Breath sounds equal bilaterally. No wheezes, rales, or rhonchi. GASTROINTESTINAL: Abdomen soft, non-tender, nondistended. No hepato-splenomegaly , or palpable masses. No guarding. Bowel sounds present. GENITOURINARY: Without palpable bladder distension. MUSCULOSKELETAL: Extremities without clubbing, cyanosis, or edema. No joint tenderness or effusion noted. No calf tenderness. No mottling or clubbing. BACK mildly tender to pallpation in lumbar area LYMPHATICS: No palpable cervical or supraclavicular adenopathy. NEUROLOGICAL: Awake and alert. Motor and sensory grossly within normal limits. Follows commands. Clear speech. Moves all extremities. Her strengh is 5/5 including LUE and LLE PSYCHIATRIC: No obvious anxiety/depression. no apparent hallucinations or other psychotic thought process. Laboratory Laboratory Tests Test 06/19/17 10:33 White Blood Count 24.5 Red Blood Count 3.77 Hemoglobin 10.6 Hematocrit 33.0 Mean Corpuscular Volume 87.3 Mean Corpuscular Hemoglobin 28.1 Mean Corpuscular Hemoglobin Concent 32.2 Red Cell Distribution Width 13.9 Platelet Count 365 Mean Platelet Volume 8.1 Neutrophils (%) (Auto) 74.6 Lymphocytes (%) (Auto) 16.4 Monocytes (%) (Auto) 5.6 Eosinophils (%) (Auto) 3.0 Basophils (%) (Auto) 0.4 Neutrophils # (Auto) 18.2 Lymphocytes # (Auto) 4.0 Monocytes # (Auto) 1.4 Eosinophils # (Auto) 0.7 Basophils # (Auto) 0.1 CBC Comment DIFF FINAL Differential Comment Blood Urea Nitrogen 21 Creatinine 0.86 Random Glucose 111 Total Protein 7.1 Albumin 3.3 Calcium Level 8.4 Alkaline Phosphatase 174 Aspartate Amino Transf (AST/SGOT) 47 Alanine Aminotransferase (ALT/SGPT) 57 Total Bilirubin 1.1 Sodium Level 139 Potassium Level 3.6 Chloride Level 106 Carbon Dioxide Level 26.2 Anion Gap 7 Estimat Glomerular Filtration Rate 79 Troponin I 0.05 Result Diagram: 06/19/17 1033 06/19/17 1033 Imaging Last Impressions Lumbar Spine CT 06/19/17 0000 Signed Impressions: Service Date/Time: May 10:53 - CONCLUSION: Normal examination except for degenerative disease at the L5-S1 level. Keanu Monahan MD Assessment and Plan Assessment and Plan IVDU Endocarditis sp MV and TV replacement fever Leukocytosis, h/o splenectomy -her post splenectomystatus may contribute to extremely elevated WBC M abscessus bacteremia 2 yrs ago Urine is mildly abnormal, but not sugg of infex -increased sq epis will preclude further interpretation of UA findings cont cefepime, vancomycin fu blood clx probably will need TAO will consider CT A/P if persistent smx/lab abnormalities Merlyn Gurrloa MD Jun 19, 2017 16:08
[2017-06-19] MEDS: oxyCODONE/ACETAMINOPHEN 10 MG/325 MG TAB PO PRN ×2 (17:17→21:22)
[2017-06-19] MEDS: VANCOMYCIN INJ 1,500 MG in SODIUM CHLORID 0.9% 500 ML INJ 500 ML IV SCH (17:34)
--- NOTE | 2017-06-19 22:51 | RADRPT ---
EXAM DATE/TIME: 06/19/2017 21:21 [facility] COMPARISON: No previous studies available for comparison. INDICATIONS : Increased lab values. MEDICAL HISTORY : Hepatitis C. Seizures. Cirrhosis with ascites. Renal failure. Spontaneous bacterial peritonitis. Intracranial abscess. SURGICAL HISTORY : section. Cholecystectomy. Splenectomy. History of bacterial endocarditis status post prosthe tic mitral/ tricuspid valves in 2000. Liver Biopsy. Tracheostomy. Multiple Paracentesis. ENCOUNTER: Initial ACUITY: 1 day PAIN SCORE: 0/10 LOCATION: Abdomen. MEASUREMENTS: LIVER: 14.9 cm length COMMON DUCT: 5 mm RIGHT KIDNEY: 11.4 x 5.6 x 4.5 cm SPLEEN: Absent. FINDINGS: LIVER: Liver is small and heterogeneous. Phasic flow in the main portal vein, mostly hepato-pedal. No focal hepatic lesion is demonstrated. No ductal dilatation. COMMON DUCT: No intraluminal mass or stone visualized. GALLBLADDER: Previous cholecystectomy. PANCREAS: The visualized portions are within normal limits. RIGHT KIDNEY: No hydronephrosis, stone or mass. SPLEEN: Previous splenectomy. CONCLUSION: Small and heterogeneous liver and probably with a degree of portal hypertension. No focal abnormality or ascites seen. Alex Barboza MD on June 19, 2017 at 22:47 Board Certified Radiologist. This report was verified electronically.
[2017-06-19] MEDS: FERROUS SULFATE 15 MG/ML ELEMENTAL IRON 50 ML BTL PO SCH (23:41)
[2017-06-19] MEDS: TOPIRAMATE 25 MG TAB PO SCH (23:41)
[2017-06-20] VITALS (8 sets, daily range): BP systolic 91–107; BP diastolic 48–55; PULSE 60–101; RESP 16–20; TEMP 96–98.4; O2SAT 82–97
[2017-06-20] MEDS: oxyCODONE/ACETAMINOPHEN 10 MG/325 MG TAB PO PRN ×5 (01:57→20:54)
[2017-06-20] MEDS: VANCOMYCIN INJ 1,500 MG in SODIUM CHLORID 0.9% 500 ML INJ 500 ML IV SCH ×2 (05:18→16:47)
[2017-06-20 05:23] LABS: HEMATOCRIT 33.1 % (35.0-46.0); HEMOGLOBIN 10.9 GM/DL (11.6-15.3); MEAN CELL VOLUME 89.1 FL (80.0-100.0); MEAN CORPUSCULAR HEMOGLOBIN 29.3 PG (27.0-34.0); MEAN CORPUSCULAR HGB CONC 32.8 % (32.0-36.0); MEAN PLATELET VOLUME 8.7 FL (7.0-11.0); PLATELET COUNT 342 TH/MM3 (150-450); RED BLOOD COUNT 3.71 MIL/MM3 (4.00-5.30); WHITE BLOOD COUNT 10.6 TH/MM3 (4.0-11.0)
[2017-06-20 05:49] LABS: ALBUMIN 3.4 GM/DL (3.4-5.0); BICARBONATE 26.3 MEQ/L (21.0-32.0); CREATININE 0.85 MG/DL (0.50-1.00); DIRECT BILIRUBIN ADULT 0.3 MG/DL (0.0-0.2)
[2017-06-20 05:51] LABS: INDIRECT BILIRUBIN 0.5 MG/DL (0.0-0.8); TOTAL BILIRUBIN ADULT 0.8 MG/DL (0.2-1.0); TOTAL PROTEIN 7.3 GM/DL (6.4-8.2)
[2017-06-20] MEDS: METHOCARBAMOL 500 MG TAB PO SCH ×3 (07:59→17:02)
[2017-06-20] MEDS: PANTOPRAZOLE SOD 40 MG DELAYED RELEASE TAB PO SCH (07:59)
[2017-06-20] MEDS: TOPIRAMATE 25 MG TAB PO SCH ×2 (07:59→20:54)
[2017-06-20] MEDS: ENOXAPARIN SODIUM 100 MG/ML SYRINGE SQ SCH (08:00)
[2017-06-20] MEDS: FLUoxetine HCL 20 MG CAP PO SCH (08:00)
[2017-06-20] MEDS: SODIUM CHLORIDE 0.9% FLUSH 10 ML FLUSH IV FLUSH SCH ×2 (08:01→20:55)
[2017-06-20] MEDS: FERROUS SULFATE 15 MG/ML ELEMENTAL IRON 50 ML BTL PO SCH ×2 (08:02→21:01)
[2017-06-20] MEDS: CEFEPIME INJ 1,000 MG in SODIUM CHLORIDE 0.9% INJ 100 ML IV SCH ×2 (10:27→20:54)
--- NOTE | 2017-06-20 14:37 | HHI.PR ---
Subjective Remarks Patient reports her back pain is unchanged. No fevers or chills. Ambulating to the bathroom. No increased in lower extremity weakness. Objective Vitals Vital Signs Date Time Temp Pulse Resp B/P (MAP) Pulse Ox O2 Delivery O2 Flow Rate FiO2 06/20/17 13:49 18 06/20/17 12:00 97.9 65 16 95/55 (68) 97 06/20/17 08:00 96.0 61 16 91/53 (66) 97 06/20/17 04:00 98.3 60 20 98/48 (65) 97 06/20/17 00:00 98.4 76 20 102/51 (68) 95 06/19/17 23:45 98 Room Air 06/19/17 20:05 96.2 72 16 105/51 (69) 97 06/19/17 16:00 98.7 72 17 96/46 (63) 97 I/O 06/19/17 06/19/17 06/19/17 06/20/17 06/20/17 06/20/17 07:00 15:00 23:00 07:00 15:00 23:00 Intake Total 370 ml 240 ml 320 ml Output Total 1100 ml 450 ml Balance -730 ml 240 ml -130 ml Intake Oral 120 ml 240 ml 320 ml IV Total 250 ml Output Urine Total 1100 ml 450 ml # Voids 2 # Bowel Movements 0 Result Diagram: 06/20/17 0418 06/20/17 0418 Objective Remarks GENERAL: This is a well-nourished, well-developed patient, in no apparent distress. CARDIOVASCULAR: Regular rate and rhythm. 2 out of 6 MALLORY murmur RESPIRATORY: Clear to auscultation. Breath sounds equal bilaterally. No wheezes , rales, or rhonchi. GASTROINTESTINAL: Abdomen soft, non-tender, nondistended. No hepato-splenomegaly , or palpable masses. No guarding. MUSCULOSKELETAL: Extremities without clubbing, cyanosis, or edema. Report tenderness to palpation over the lumbar area diffusely. NEUROLOGICAL: Awake and alert. Cranial nerves II through XII intact. Bilateral upper extremities with equal strength. Left lower extremity is about 4+ out of 5 compared to the right which is 5 out of 5. A/P Problem List: (1) Left-sided weakness ICD Code: R53.1 - Weakness (2) Leukocytosis ICD Code: D72.829 - Elevated white blood cell count, unspecified (3) Intractable abdominal pain ICD Code: R10.9 - Unspecified abdominal pain Status: Acute (4) History of heart valve replacement ICD Code: Z95.2 - Presence of prosthetic heart valve (5) History of endocarditis ICD Code: Z86.79 - History of endocarditis Status: Acute (6) Chronic ischemic right MCA stroke ICD Code: I69.30 - Unspecified sequelae of cerebral infarction Status: Chronic (7) Abnormal urinalysis ICD Code: R82.90 - Unspecified abnormal findings in urine Assessment and Plan 26-year-old female with history of previous stroke with left-sided residual weakness admitted with worsening left-sided weakness. Patient found to have marked leukocytosis. She has a history of IV drug use status post valve replacement. Left-sided weakness: Probably related to prior stroke. Left lower extremity slightly worse compared to right. Head CT with no acute findings. She has a pacemaker and cannot get MRI -Lumbar CT did not show any acute abnormalities. - Physical therapy following. Ambulating independently. Marked leukocytosis: WBC 34,000 on arrival to the emergency department. Patient reported chills at home. History of IV drug use. Urine culture with mixed heath - Leukocytosis quickly resolved - Continue empiric antibiotics with vancomycin and cefepime - Follow cultures - ID following Acute on chronic back pain: Concern for narcotic seeking behavior. - Continue home dose Percocet as needed. Avoid IV pain medications Back wound: Right upper back. Chronic. Has been decreasing in size. Patient Reportedly started as reaction to Zosyn. -Continue routine wound care. H/O endocarditis: Follow blood cultures. History of heart valve replacement Resume home dose Lovenox. States Coumadin did not work for her. GI prophylaxis: PPI. Stool softener PRN constipation. DVT PPx: Lovenox Discharge Planning Continue to monitor blood cultures. Infectious disease recommendations appreciated. Jose Amador MD Jun 20, 2017 14:37
[2017-06-21] VITALS (11 sets, daily range): BP systolic 90–101; BP diastolic 46–57; PULSE 67–78; RESP 18; TEMP 97.8–98.8; O2SAT 90–97
[2017-06-21] MEDS: ONDANSETRON HCL 4 MG/2 ML VIAL IVP PRN (01:31)
[2017-06-21] MEDS: oxyCODONE/ACETAMINOPHEN 10 MG/325 MG TAB PO PRN ×6 (01:31→21:21)
[2017-06-21] MEDS ORDERED: PHARMACY ORDERED LAB ONE (05:45)
[2017-06-21] MEDS: VANCOMYCIN INJ 1,500 MG in SODIUM CHLORID 0.9% 500 ML INJ 500 ML IV SCH (06:21)
[2017-06-21] MEDS: TOPIRAMATE 25 MG TAB PO SCH ×2 (07:27→21:15)
[2017-06-21] MEDS: FLUoxetine HCL 20 MG CAP PO SCH (07:27)
[2017-06-21] MEDS: PANTOPRAZOLE SOD 40 MG DELAYED RELEASE TAB PO SCH (07:28)
[2017-06-21] MEDS: METHOCARBAMOL 500 MG TAB PO SCH ×3 (07:28→17:29)
[2017-06-21] MEDS: SODIUM CHLORIDE 0.9% FLUSH 10 ML FLUSH IV FLUSH SCH ×2 (07:28→21:15)
[2017-06-21] MEDS: FERROUS SULFATE 15 MG/ML ELEMENTAL IRON 50 ML BTL PO SCH ×2 (07:30→21:15)
[2017-06-21] MEDS: ENOXAPARIN SODIUM 100 MG/ML SYRINGE SQ SCH (07:30)
[2017-06-21] MEDS: CEFEPIME INJ 1,000 MG in SODIUM CHLORIDE 0.9% INJ 100 ML IV SCH ×2 (09:39→21:14)
--- NOTE | 2017-06-21 11:16 | HHI.PR ---
Subjective Remarks Patient reports she is feeling okay. Pain is unchanged. Objective Vitals Vital Signs Date Time Temp Pulse Resp B/P (MAP) Pulse Ox O2 Delivery O2 Flow Rate FiO2 06/21/17 09:49 Nasal Cannula 2.00 06/21/17 09:45 68 06/21/17 08:03 98.3 77 18 91/53 (66) 95 06/21/17 06:20 98.1 77 18 97/52 (67) 93 06/21/17 00:21 98.2 78 18 90/53 (65) 90 06/21/17 00:00 70 06/20/17 21:00 82 06/20/17 20:01 95 06/20/17 19:15 Nasal Cannula 2.00 06/20/17 19:00 98.2 101 18 97/52 (67) 82 06/20/17 19:00 Room Air 06/20/17 16:00 98.4 65 18 107/52 (70) 97 06/20/17 13:49 18 06/20/17 12:00 97.9 65 16 95/55 (68) 97 I/O 06/20/17 06/20/17 06/20/17 06/21/17 06/21/17 06/21/17 07:00 15:00 23:00 07:00 15:00 23:00 Intake Total 320 ml 240 ml 615 ml Output Total 450 ml Balance -130 ml 240 ml 615 ml Intake Oral 320 ml 240 ml IV Total 615 ml Output Urine Total 450 ml # Voids 3 # Bowel Movements 1 Result Diagram: 06/20/17 0418 06/20/17 0418 Objective Remarks GENERAL: This is a well-nourished, well-developed patient, in no apparent distress. CARDIOVASCULAR: Regular rate and rhythm. 2 out of 6 MALLORY murmur RESPIRATORY: Clear to auscultation. Breath sounds equal bilaterally. No wheezes , rales, or rhonchi. GASTROINTESTINAL: Abdomen soft, non-tender, nondistended. No hepato-splenomegaly , or palpable masses. No guarding. MUSCULOSKELETAL: Extremities without clubbing, cyanosis, or edema. Report tenderness to palpation over the lumbar area diffusely. NEUROLOGICAL: Awake and alert. Cranial nerves II through XII intact. Bilateral upper extremities with equal strength. Left lower extremity is about 4+ out of 5 compared to the right which is 5 out of 5. A/P Problem List: (1) Left-sided weakness ICD Code: R53.1 - Weakness (2) Leukocytosis ICD Code: D72.829 - Elevated white blood cell count, unspecified (3) Intractable abdominal pain ICD Code: R10.9 - Unspecified abdominal pain Status: Acute (4) History of heart valve replacement ICD Code: Z95.2 - Presence of prosthetic heart valve (5) History of endocarditis ICD Code: Z86.79 - History of endocarditis Status: Acute (6) Chronic ischemic right MCA stroke ICD Code: I69.30 - Unspecified sequelae of cerebral infarction Status: Chronic (7) Abnormal urinalysis ICD Code: R82.90 - Unspecified abnormal findings in urine Assessment and Plan 26-year-old female with history of previous stroke with left-sided residual weakness admitted with worsening left-sided weakness. Patient found to have marked leukocytosis. She has a history of IV drug use status post valve replacement. Left-sided weakness: Probably related to prior stroke. Left lower extremity slightly worse compared to right. Head CT with no acute findings. She has a pacemaker and cannot get MRI -Lumbar CT did not show any acute abnormalities. - Physical therapy following. Ambulating independently. Marked leukocytosis: WBC 34,000 on arrival to the emergency department. Patient reported chills at home. History of IV drug use. Urine culture with mixed heath - Leukocytosis quickly resolved - Continue empiric antibiotics with vancomycin and cefepime - Follow cultures - ID following Acute on chronic back pain: Concern for narcotic seeking behavior. - Continue home dose Percocet as needed. Avoid IV pain medications Back wound: Right upper back. Chronic. Has been decreasing in size. Patient Reportedly started as reaction to Zosyn. -Continue routine wound care. H/O endocarditis: Follow blood cultures. History of heart valve replacement Resume home dose Lovenox. States Coumadin did not work for her. GI prophylaxis: PPI. Stool softener PRN constipation. DVT PPx: Lovenox Discharge Planning Watch cultures for 1 more day. Discussed with ID today. Plan for discharge tomorrow. Jose Amador MD Jun 21, 2017 11:16
[2017-06-21] MEDS: VANCOMYCIN INJ 1,250 MG in SODIUM CHLOR 0.9% 250 ML INJ 250 ML IV SCH (17:30)
[2017-06-22 00:28] VITALS: BP 98/48; PULSE 72; RESP 18; TEMP 99.3; O2SAT 98
[2017-06-22] MEDS: oxyCODONE/ACETAMINOPHEN 10 MG/325 MG TAB PO PRN ×3 (01:48→12:16)
[2017-06-22 04:42] VITALS: BP 91/52; PULSE 68; RESP 20; TEMP 98.3; O2SAT 97
[2017-06-22] MEDS: VANCOMYCIN INJ 1,250 MG in SODIUM CHLOR 0.9% 250 ML INJ 250 ML IV SCH (05:52)
[2017-06-22 07:35] VITALS: BP 88/52; PULSE 60; RESP 20; TEMP 98.1; O2SAT 100
--- NOTE | 2017-06-22 08:46 | HHI.DCPOC ---
Discharge Care Plan Diagnosis: (1) Leukocytosis (2) Left-sided weakness (3) History of heart valve replacement (4) Generalized weakness Goals to Promote Your Health * To prevent worsening of your condition and complications * To maintain your health at the optimal level Directions to Meet Your Goals Take your medications as prescribed Follow your dietary instruction Follow activity as directed Keep your appointments as scheduled Take your immunizations and boosters as scheduled If your symptoms worsen call your PCP, if no PCP go to Urgent Care Center or Emergency Room Smoking is Dangerous to Your Health. Avoid second hand smoke Call the 24-hour hour crisis hotline for domestic abuse at Jose Amador MD Jun 22, 2017 08:46
--- NOTE | 2017-06-22 08:47 | HHI.DS ---
Discharge Summary Admission Date Jun 19, 2017 at 04:50 Discharge Date: Jun 22, 2017 Admitting Diagnosis (1) Left-sided weakness ICD Code: R53.1 - Weakness (2) Leukocytosis ICD Code: D72.829 - Elevated white blood cell count, unspecified (3) Intractable abdominal pain ICD Code: R10.9 - Unspecified abdominal pain Status: Acute (4) History of heart valve replacement ICD Code: Z95.2 - Presence of prosthetic heart valve (5) History of endocarditis ICD Code: Z86.79 - History of endocarditis Status: Acute (6) Chronic ischemic right MCA stroke ICD Code: I69.30 - Unspecified sequelae of cerebral infarction Status: Chronic (7) Abnormal urinalysis ICD Code: R82.90 - Unspecified abnormal findings in urine Procedures None Brief History - From Admission 26-year-old female with a medical history 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 The patient has a history of prior ischemic stroke with residual left-sided weakness. However she woke up 2 nights ago with complaint of worsening left- sided weakness. She also complained of worsening lower back pain. There has been no change in her speech or vision. No dizziness. The patient states she normally gets chest pain intermittently. There has been no recent changes in the pattern of pain. The patient was seen in the emergency room last week for chest pain but left early because it was taking too long. She denies shortness of breath. She normally takes Lovenox but reports she missed a few doses for the past couple of days. Currently the patient reports the left lower extremity weakness is unchanged. Left arms is closer to baseline. She reports having chills at home but no documented fever, states she has been taking Tylenol for back pain. She adamantly denied any recent IV drug use. She states the last time she used was over 2 years ago. CBC/BMP: 06/20/17 0418 06/20/17 0418 Significant Findings Laboratory Tests Test 06/19/17 10:33 06/20/17 04:18 06/21/17 06:03 White Blood Count 24.5 TH/MM3 (4.0-11.0) Red Blood Count 3.77 MIL/MM3 (4.00-5.30) 3.71 MIL/MM3 (4.00-5.30) Hemoglobin 10.6 GM/DL (11.6-15.3) 10.9 GM/DL (11.6-15.3) Hematocrit 33.0 % (35.0-46.0) 33.1 % (35.0-46.0) Neutrophils (%) (Auto) 74.6 % (16.0-70.0) Neutrophils # (Auto) 18.2 TH/MM3 (1.8-7.7) Monocytes # (Auto) 1.4 TH/MM3 (0-0.9) Eosinophils # (Auto) 0.7 TH/MM3 (0-0.4) Blood Urea Nitrogen 21 MG/DL (7-18) Random Glucose 111 MG/DL (74-106) Albumin 3.3 GM/DL (3.4-5.0) Calcium Level 8.4 MG/DL (8.5-10.1) Alkaline Phosphatase 174 U/L (45-117) 161 U/L (45-117) Aspartate Amino Transf (AST/SGOT) 47 U/L (15-37) Alanine Aminotransferase (ALT/SGPT) 57 U/L (10-53) Total Bilirubin 1.1 MG/DL (0.2-1.0) Estimat Glomerular Filtration Rate 79 ML/MIN (>89) 80 ML/MIN (>89) Direct Bilirubin 0.3 MG/DL (0.0-0.2) Vancomycin Level Trough 19.2 MCG/ML (5.0-10.0) Imaging Last Impressions Lumbar Spine CT 06/19/17 Signed Impressions: Service Date/Time: May 10:53 - CONCLUSION: Normal examination except for degenerative disease at the L5-S1 level. Keanu Monahan MD Liver Ultrasound 06/19/17 Signed Impressions: Service Date/Time: May 21:21 - CONCLUSION: Small and heterogeneous liver and probably with a degree of portal hypertension. No focal abnormality or ascites seen. Alex Barboza MD PE at Discharge GENERAL: This is a well-nourished, well-developed patient, in no apparent distress. CARDIOVASCULAR: Regular rate and rhythm. 2 out of 6 MALLORY murmur RESPIRATORY: Clear to auscultation. Breath sounds equal bilaterally. No wheezes , rales, or rhonchi. GASTROINTESTINAL: Abdomen soft, non-tender, nondistended. No hepato-splenomegaly , or palpable masses. No guarding. MUSCULOSKELETAL: Extremities without clubbing, cyanosis, or edema. Report tenderness to palpation over the lumbar area diffusely. NEUROLOGICAL: Awake and alert. Cranial nerves II through XII intact. Bilateral upper extremities with equal strength. Left lower extremity is about 4+ out of 5 compared to the right which is 5 out of 5. Pt update on day of discharge Patient reports she is feeling ok. Gets anxious because she states she normally takes Benzo at home. Hospital Course 26-year-old female with history of previous stroke with left-sided residual weakness admitted with worsening left-sided weakness. Patient found to have marked leukocytosis. She has a history of IV drug use status post valve replacement. Evaluation and treatment course detailed below: Left-sided weakness: Probably related to prior stroke. Left lower extremity slightly worse compared to right. Head CT with no acute findings. She has a pacemaker and cannot get MRI -Lumbar CT did not show any acute abnormalities. - Physical therapy followed. Ambulating independently. Marked leukocytosis: WBC 34,000 on arrival to the emergency department. Patient reported chills at home. History of IV drug use. Urine culture with mixed heath - Leukocytosis quickly resolved - Empirically treated with vancomycin and cefepime - Follow cultures - ID following Acute on chronic back pain: Concern for narcotic seeking behavior. - Continue home dose Percocet as needed. Avoided IV pain medications Back wound: Right upper back. Chronic. Has been decreasing in size. Patient Reportedly started as reaction to Zosyn. -Continue routine wound care. H/O endocarditis: Blood cultures were followed and were negative. History of heart valve replacement Resume home dose Lovenox. States Coumadin did not work for her. Pt Condition on Discharge: Good Discharge Disposition: Discharge Home Discharge Time: <= 30 minutes Discharge Instructions DIET: Follow Instructions for: Heart Healthy Diet Activities you can perform: Regular-No Restrictions Continued Medications: Aspirin (Aspirin Low Dose) 81 Mg Chew 81 MG CHEW DAILY, TAB 0 Refills Enoxaparin Inj (Lovenox Inj) 100 Mg/Ml Syr 100 MG SQ DAILY for Blood Clot Prevention, SYRINGE 0 Refills Ferrous Sulfate Liq Drops (Iron Supplement Childrens Liq Drops) 15 Mg/Ml Drops 15 MG PO BID for Nutritional Supplement, #1 BOTTLE 0 Refills Fluoxetine (Prozac) 10 Mg Cap 20 MG PO DAILY, #30 CAP 0 Refills Lorazepam (Ativan) 1 Mg Tab 1 MG PO BID PRN for ANXIETY AND/OR AGITATION, TAB 0 Refills Methocarbamol (Methocarbamol) 500 Mg Tab 500 MG PO TID Oxycodone-Acetaminophen (Oxycodone-Acetaminophen) 10-325 mg Tab 1 TAB PO Q4H PRN for PAIN, TAB 0 Refills Pantoprazole (Protonix) 40 Mg Tab 40 MG PO DAILY for Reflux, #30 TAB 0 Refills Topiramate (Topamax) 50 Mg Tab 50 MG PO BID for Control Seizures, #60 TAB 0 Refills Discontinued Medications: Metoprolol Succinate ER 24 HR (Metoprolol Succinate ER 24 HR) 25 Mg Tab 12.5 MG PO BID, #30 TAB 0 Refills Jose Amador MD Jun 22, 2017 08:47
[2017-06-22] MEDS: FLUoxetine HCL 20 MG CAP PO SCH (09:32)
[2017-06-22] MEDS: FERROUS SULFATE 15 MG/ML ELEMENTAL IRON 50 ML BTL PO SCH (09:32)
[2017-06-22] MEDS: PANTOPRAZOLE SOD 40 MG DELAYED RELEASE TAB PO SCH (09:32)
[2017-06-22] MEDS: METHOCARBAMOL 500 MG TAB PO SCH ×2 (09:32→12:16)
[2017-06-22] MEDS: TOPIRAMATE 25 MG TAB PO SCH (09:32)
[2017-06-22] MEDS: ENOXAPARIN SODIUM 100 MG/ML SYRINGE SQ SCH (09:33)
[2017-06-22] MEDS: SODIUM CHLORIDE 0.9% FLUSH 10 ML FLUSH IV FLUSH SCH (09:37)
[2017-06-22] MEDS: CEFEPIME INJ 1,000 MG in SODIUM CHLORIDE 0.9% INJ 100 ML IV SCH (10:00)
[2017-06-22 11:43] VITALS: BP 95/55; PULSE 63; RESP 20; TEMP 98.1; O2SAT 98
--- NOTE | 2017-06-22 13:43 | HHI.IDPN ---
Subjective Subjective Remarks doing well no complaints WBC down to 10K blood clx neg @ 4 days 2/2 2 D echo neg for veg's Antibiotics vanco\cefepime Allergies: Coded Allergies: Fish Containing Products (Unverified Allergy, Severe, THROAT SWOLLEN/HIVES , 06/07/17) codeine (Unverified Allergy, Severe, HIVES/VOMITING, 06/07/17) gabapentin (Unverified Allergy, Severe, Hives, 06/07/17) morphine (Unverified Allergy, Severe, Hives, 06/07/17) naproxen (Unverified Allergy, Severe, Hives, 06/07/17) piperacillin (Verified Allergy, Severe, Hives, 06/07/17) tazobactam (Verified Allergy, Severe, Hives, 06/07/17) Objective . Vital Signs Date Time Temp Pulse Resp B/P (MAP) Pulse Ox O2 Delivery O2 Flow Rate FiO2 06/22/17 11:43 98.1 63 20 95/55 (68) 98 06/22/17 07:35 98.1 60 20 88/52 (64) 100 06/22/17 07:20 Nasal Cannula 2.00 06/22/17 04:42 98.3 68 20 91/52 (65) 97 06/22/17 00:28 99.3 72 18 98/48 (65) 98 06/21/17 21:25 96 Nasal Cannula 2.00 06/21/17 21:12 68 95/52 (66) 06/21/17 19:58 98.8 67 18 91/46 (61) 97 06/21/17 16:05 77 06/21/17 15:43 98.3 74 18 101/57 (72) 97 . Microbiology Date/Time Source Procedure Growth Status 06/19/17 19:09 Blood Peripheral Mycobacterial Culture Pending Received Imaging Last Impressions Lumbar Spine CT 06/19/17 0000 Signed Impressions: Service Date/Time: May 10:53 - CONCLUSION: Normal examination except for degenerative disease at the L5-S1 level. Keanu Monaahn MD Liver Ultrasound 06/19/17 0000 Signed Impressions: Service Date/Time: May 21:21 - CONCLUSION: Small and heterogeneous liver and probably with a degree of portal hypertension. No focal abnormality or ascites seen. Alex Barboza MD Physical Exam CONSTITUTIONAL/GENERAL: This is an adequately nourished patient, in no apparent distress. TUBES/LINES/DRAINS: SKIN: No jaundice, rashes, or lesions. Skin temperature appropriate. Not diaphoretic. CARDIOVASCULAR: Regular rate and rhythm without murmurs, gallops, or rubs. No JVD. Peripheral pulses symmetric. Mechanical heart sounds Pacer in place L chest w/o skin changes RESPIRATORY/CHEST: Symmetric, unlabored respirations. Clear to auscultation. Breath sounds equal bilaterally. No wheezes, rales, or rhonchi. GASTROINTESTINAL: Abdomen soft, non-tender, nondistended. No hepato-splenomegaly , or palpable masses. No guarding. Bowel sounds present. MUSCULOSKELETAL: Extremities without clubbing, cyanosis, or edema. NEUROLOGICAL: Awake and alert. Motor and sensory grossly within normal limits. Follows commands. Clear speech. Moves all extremities. Her strengh is 5/5 including LUE and LLE PSYCHIATRIC: No obvious anxiety/depression. no apparent hallucinations or other psychotic thought process. Assessment & Plan Remarks IVDU Endocarditis sp MV and TV replacement fever: no fever documented in-pt Leukocytosis, h/o splenectomy -her post splenectomystatus may contribute to extremely elevated WBC - resolved M abscessus bacteremia 2 yrs ago Urine is mildly abnormal, but not sugg of infex -increased sq epis will preclude further interpretation of UA findings dc cefepime, vancomycin OK to dc home on no abx dw Merlyn Canela MD Jun 22, 2017 13:43
[2017-06-23] MEDS ORDERED: PHARMACY ORDERED LAB ONE (05:45)
== END 2017-06-22 15:48 | disposition home or self-care (01) | DRG 57 ==
LOC: NEDDLT 04:40 → NEDA 04:50 → N03A 05:39 → N03B 13:54 → N05B 06-20 16:52
PROVIDERS: ADMIT Family Medicine; ATTEND Family Medicine
DX: I69.354 Hemiplegia and hemiparesis following cerebral infarction affecting left non-dominant side (principal); D72.829 Elevated white blood cell count, unspecified; M54.9 Dorsalgia, unspecified; G89.29 Other chronic pain; S20.401A Unspecified superficial injuries of right back wall of thorax, initial encounter; Z86.19 Personal history of other infectious and parasitic diseases; Z95.2 Presence of prosthetic heart valve; Z86.79 Personal history of other diseases of the circulatory system; Z95.0 Presence of cardiac pacemaker; Z88.8 Allergy status to other drugs, medicaments and biological substances; Z88.6 Allergy status to analgesic agent; Z88.5 Allergy status to narcotic agent; Z91.013 Allergy to seafood; Z79.82 Long term (current) use of aspirin; Z79.891 Long term (current) use of opiate analgesic; Z79.899 Other long term (current) drug therapy
CPT/HCPCS: 72132; 76705; 80048; 80053; 80076; 80202; 84484; 85025; 85027; 87116; 93306; 94618; J0692; J1650; J2405; J3370; J7040; J7050; Q9967

== ENCOUNTER 2017-07-11 12:41 | Emergency (ER) | END 2017-07-11 18:25 | disposition home or self-care (01) | DX: R07.9 Chest pain, unspecified (principal); R06.02 Shortness of breath; R50.9 Fever, unspecified; R09.3 Abnormal sputum; R94.31 Abnormal electrocardiogram [ECG] [EKG]; I48.91 Unspecified atrial fibrillation; K21.9 Gastro-esophageal reflux disease without esophagitis; Z79.01 Long term (current) use of anticoagulants; Z86.79 Personal history of other diseases of the circulatory system; F41.8 Other specified anxiety disorders; Z86.718 Personal history of other venous thrombosis and embolism; Z87.19 Personal history of other diseases of the digestive system; Z87.39 Personal history of other diseases of the musculoskeletal system and connective tissue; Z86.69 Personal history of other diseases of the nervous system and sense organs | CPT/HCPCS: 71045; 80053; 81001; 83690; 83880; 84484; 84703; 85025; 85379; 85610; 87040; 93005; 96372; 96374; 99285; J1650; J1885 ==

== ENCOUNTER 2017-07-24 01:11 | Inpatient (IN) | payer MEDICAID ==
[~2017-07-24] VITALS: Ht 152.4 cm; Wt 68.2 kg
[2017-07-24] VITALS (14 sets, daily range): BP systolic 95–129; BP diastolic 49–80; PULSE 59–108; RESP 6–22; TEMP 97.8–103; O2SAT 94–100
[~2017-07-24 01:11] MED LIST changes: +COUM5TAB PO; -COUM7.5T PO; -FERR15DR6 PO; +FERR325T18 PO; +LISI-515 PO; -LISI2.5T3 PO; -LORA-474 PO; -METO1TAB42 PO; +METO25TA3 PO; -PROT40TA PO; +SPIR25 PO; -SPIR25TA PO; -VITA500012 PO
[2017-07-24] MEDS ORDERED: IOHEXOL 350 MG/ML 10 ML VIAL (for RAD DIAG) IVCONTRAST ONE (01:12)
[2017-07-24] MEDS ORDERED: SODIUM CHLOR 0.9% 1000 ML INJ 1,000 ML IV ONE (02:02)
[2017-07-24] MEDS: SODIUM CHLORIDE 0.9% FLUSH 10 ML FLUSH IVF PRN ×2 (02:06→05:10)
[2017-07-24] MEDS ORDERED: ACETAMINOPHEN 325 MG TAB PO ONE (02:15)
[2017-07-24 02:25] LABS: AUTOMATED NEUTROPHIL # 16.2 TH/MM3 (1.8-7.7); BASOPHIL # 0.1 TH/MM3 (0-0.2); BASOPHIL % 0.3 % (0.0-2.0); EOSINOPHIL # 0.1 TH/MM3 (0-0.4); EOSINOPHIL % 0.8 % (0.0-4.0); HEMATOCRIT 31.2 % (35.0-46.0); HEMOGLOBIN 10.3 GM/DL (11.6-15.3); LYMPH % 7.8 % (9.0-44.0); LYMPHOCYTE # 1.5 TH/MM3 (1.0-4.8); MEAN CELL VOLUME 85.8 FL (80.0-100.0); MEAN CORPUSCULAR HEMOGLOBIN 28.2 PG (27.0-34.0); MEAN CORPUSCULAR HGB CONC 32.9 % (32.0-36.0); MEAN PLATELET VOLUME 8.3 FL (7.0-11.0); MONO % 4.1 % (0.0-8.0); MONOCYTE # 0.8 TH/MM3 (0-0.9); PLATELET COUNT 422 TH/MM3 (150-450); RED BLOOD COUNT 3.63 MIL/MM3 (4.00-5.30); RED CELL DISTRIBUTION WIDTH 15.1 % (11.6-17.2); WHITE BLOOD COUNT 18.6 TH/MM3 (4.0-11.0)
--- NOTE | 2017-07-24 02:28 | RADRPT ---
EXAM DATE: 07/24/2017 2:24 AM EDT AGE/SEX: 26 years / Female INDICATIONS: Chest pain. CLINICAL DATA: This is the patient's initial encounter. Patient reports that signs and symptoms have been present for 3 days and indicates a pain score of 10/10. MEDICAL/SURGICAL HISTORY: Stroke. Hypotension. Pacemaker. Aortic valve replacement X2. COMPARISON: [facility], CHEST SINGLE AP, 07/11/2017. . FINDINGS: The lungs are clear without infiltrate, nodule, or mass. There is no appreciable pleural effusion for technique. Heart and mediastinum are unremarkable. There is evidence for prior median sternotomy. CONCLUSION: No acute cardiopulmonary disease. Electronically signed by: Ryan Williamson MD 07/24/2017 2:26 AM EDT
[2017-07-24] MEDS ORDERED: HYDROmorphone HCL PF 2 MG/ML VIAL IV PUSH ONE (02:30)
[2017-07-24 02:33] LABS: INTERNATIONAL NORMALIZED RATIO 1.1 RATIO; PROTHROMBIN TIME - PATIENT 11.1 SEC (9.8-11.6)
[2017-07-24 02:40] LABS: ALBUMIN 3.6 GM/DL (3.4-5.0); ALT (GPT) 20 U/L (10-53); AST (GOT) 25 U/L (15-37); BICARBONATE 23.9 MEQ/L (21.0-32.0); BLOOD UREA NITROGEN 15 MG/DL (7-18); CALCIUM 8.2 MG/DL (8.5-10.1); CHLORIDE 104 MEQ/L (98-107); CREATININE 0.79 MG/DL (0.50-1.00); GLOMERULAR FILTRATION RATE 87 ML/MIN (>89); GLUCOSE,RANDOM 89 MG/DL (74-106); SODIUM (NA) 139 MEQ/L (136-145)
[2017-07-24 02:44] LABS: ALKALINE PHOSPHATASE 137 U/L (45-117); TOTAL BILIRUBIN ADULT 1.2 MG/DL (0.2-1.0); TOTAL PROTEIN 7.7 GM/DL (6.4-8.2); TROPONIN I LESS THAN 0.02 NG/ML (0.02-0.05)
[2017-07-24] MEDS: SODIUM CHLOR 0.9% 1000 ML INJ 1,000 ML IV SCH ×4 (02:51→22:11)
[2017-07-24] MEDS ORDERED: VANCOMYCIN INJ 1,000 MG in SODIUM CHLOR 0.9% 250 ML INJ 250 ML IV ONE (03:45)
[2017-07-24] MEDS ORDERED: CEFEPIME INJ 2,000 MG in SODIUM CHLORIDE 0.9% INJ 100 ML IV ONE (03:45)
[2017-07-24 03:55] LABS: BILIRUBIN, URINE NEG (NEG); BLOOD, URINE NEG (NEG); GLUCOSE,URINE NEG (NEG); KETONE, URINE NEG (NEG); MUCUS URINE FEW /lpf (OCC); NITRITE,URINE NEG (NEG); SQUAMOUS EPITHELIAL CELL URINE <1 /hpf (0-5); URINE COLOR YELLOW (YELLW/STRAW); URINE LEUKOCYTE ESTERASE NEG (NEG)
--- NOTE | 2017-07-24 04:03 | PD ---
HPI Chief Complaint: Seizure Time Seen by Provider: 02:02 Travel History International Travel<30 days: No Contact w/Intl Traveler<30days: No Traveled to known affect area: No History of Present Illness HPI 26-year-old female presents to the emergency department by EMS transport for complaint of syncope seizure and chest pain. 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 Patient takes warfarin daily. Patient was also history of ischemic stroke with residual left-sided weakness. Patient this evening was witnessed to have 2 syncopal episodes with seizure form like activity. Patient states since starting headaches was changed from Keppra which controlled her seizures well to Topamax and has noted increased frequency of seizures. With mitral valve and tricuspid valve replacement on warfarin therapy hepatitis C cirrhosis ascites failure with bioprosthesis valve replacement in 2016 respiratory failure tracheostomy renal failure seizures spontaneous bacterial peritonitis intracranial abscess cholecystectomy splenectomy paracentesis carpal tunnel surgery of the right wrist pacemaker placement. Patient received Zofran 4 mg IV and morphine sulfate 4 mg IV prior to arrival to the emergency department. Patient states she has tension headaches, migraine headaches, and previous intracranial bleed headaches. Patient states that the Topamax was reportedly started to control her tension headaches. Patient states she feels like she might have a migraine headache or headache associated with previous intracranial bleed. Patient has had no fever or chills. Patient was seen as recently as 06/18/17 for awakening with increased left-sided weakness during which time she was evaluated with echo which identified no vegetations on her prosthetic valves and IV antibiotics as well as imaging studies which revealed no bleed. Patient has subsequently been seen in the emergency department and identified to be subtherapeutic on her anticoagulation. Patient now returns for ongoing complaints. Patient denies any IV drug use. [facility] Past Medical History Narrative Medical Warfarin therapy endocarditis chest pain CVA seizure disorder bipolar atrial fibrillation pacemaker cholecystectomy prosthetic heart valve; nursing notes reviewed Hx Anticoagulant Therapy: Yes (Lovenox) ADHD: No Autoimmune Disease: No Blood Disorders: No Bipolar Disorder: Yes Anxiety: Yes (takes prozac) Depression: Yes Heart Rhythm Problems: Yes (afib) Cancer: No Cardiovascular Problems: Yes (open heart SX, pacemaker) High Cholesterol: No Chemotherapy: No Chest Pain: Yes Congestive Heart Failure: No Cerebrovascular Accident: Yes (2x) Diabetes: No Diminished Hearing: No Deep Vein Thrombosis: Yes (arm; pulmonary embolism-R lung; ) Endocrine: No Gastrointestinal Disorders: Yes (ASCITES SEPTEMBER 2013) GERD: Yes Genitourinary: No Hypertension: No Immune Disorder: No Implanted Vascular Access Dvce: Yes (ARTIFICIAL HEART VALVES) Musculoskeletal: Yes Neurologic: Yes Psychiatric: Yes Reproductive: No Respiratory: No Integumentary: Yes Immunizations Current: Yes Migraines: Yes Seizures: Yes Thyroid Disease: No Ulcer: No ?: Not LMP: 2 DAYS AGO....IUD : 1 Para: 1 Ectopic : No Ovarian Cysts: Yes (ovarian torsion ) Dilation and Curettage (D&C): No Tubal Ligation: No Past Surgical History Abdominal Surgery: Yes Appendectomy: Yes Body Medical Devices: 2 mechanical valves Cardiac Surgery: Yes (Pacemaker ) Section: Yes Cholecystectomy: Yes Ear Surgery: No Endocrine Surgery: No Eye Surgery: No Genitourinary Surgery: Yes Gynecologic Surgery: Yes ( at age 17) Hysterectomy: Yes Neurologic Surgery: No Oral Surgery: Yes (WISDOM) Pacemaker: Yes Thoracic Surgery: No Valve Replacement: Yes (MITRAL & TRICUSPID) Other Surgery: Yes (left sided facial sx @age 2) Social History Alcohol Use: No Tobacco Use: No Substance Use: Yes (Marijuana occ.) Allergies-Medications (Allergen,Severity, Reaction): Coded Allergies: Fish Containing Products (Unverified Allergy, Severe, THROAT SWOLLEN/HIVES , 07/24/17) codeine (Unverified Allergy, Severe, HIVES/VOMITING, 07/24/17) gabapentin (Unverified Allergy, Severe, Hives, 07/24/17) morphine (Unverified Allergy, Severe, Hives, 07/24/17) naproxen (Unverified Allergy, Severe, Hives, 07/24/17) piperacillin (Verified Allergy, Severe, Hives, 07/24/17) tazobactam (Verified Allergy, Severe, Hives, 07/24/17) Reported Meds & Prescriptions Reported Meds & Active Scripts Active Reported Ferrous Sulfate 325 Mg (65 Mg Iron) Tablet 325 Mg PO BIDPC Coumadin (Warfarin) 5 Mg Tab 5 Mg PO DAILY Metoprolol Tartrate 25 Mg Tab 12.5 Mg PO BID Lisinopril 20 Mg Tab 20 Mg PO DAILY Methocarbamol 500 Mg Tab 500 Mg PO TID Topamax (Topiramate) 50 Mg Tab 50 Mg PO BID Oxycodone-Acetaminophen 10-325 mg Tab 1 Tab PO TID PRN Aspirin Low Dose (Aspirin) 81 Mg Chew 81 Mg CHEW DAILY Prozac (Fluoxetine HCl) 10 Mg Cap 20 Mg PO DAILY Review of Systems Except as stated in HPI: all other systems reviewed are Neg General / Constitutional: Positive: Fever, Chills HENT: No: Congestion Cardiovascular: No: Chest Pain or Discomfort Respiratory: No: Shortness of Breath Gastrointestinal: Positive: Nausea, No: Abdominal Pain Genitourinary: No: Flank Pain Musculoskeletal: Positive: Myalgias, Arthralgias Skin: No Rash Neurologic: Positive: Weakness, Dizziness, Syncope, Seizures Psychiatric: No: Anxiety Hematologic/Lymphatic: No: Easy Bruising Physical Exam Narrative GENERAL: Well-developed well-nourished female in no acute distress no respiratory distress well-developed well-nourished female no acute distress no respiratory distress; GCS 15 SKIN: Warm and dry. HEAD: Normocephalic. EYES: No scleral icterus. No injection or drainage. Bilateral pupils equal round reactive to light extraocular muscles intact NECK: Supple, trachea midline. No JVD or lymphadenopathy. No meningismus no nuchal rigidity CARDIOVASCULAR: Regular rate and rhythm without murmurs, gallops, or rubs. RESPIRATORY: Breath sounds equal bilaterally. No accessory muscle use. GASTROINTESTINAL: Abdomen soft, non-tender, nondistended. MUSCULOSKELETAL: No cyanosis, or edema. BACK: Nontender without obvious deformity. No CVA tenderness. Data Data Last Documented VS Vital Signs Date Time Temp Pulse Resp B/P (MAP) Pulse Ox O2 Delivery O2 Flow Rate FiO2 07/24/17 03:00 104 16 121/62 (81) 97 Room Air 07/24/17 01:14 103.0 Orders Orders Electrocardiogram (07/24/17 02:02) Ed Urine Pregnancytest Poc (07/24/17 02:02) Complete Blood Count With Diff (07/24/17 02:02) Comprehensive Metabolic Panel (07/24/17 02:02) Magnesium (Mg) (07/24/17 02:02) B-Type Natriuretic Peptide (07/24/17 02:02) Ckmb (Isoenzyme) Profile (07/24/17 02:02) Troponin I (07/24/17 02:02) Prothrombin Time / Inr (Pt) (07/24/17 02:02) Urinalysis - C+S If Indicated (07/24/17 02:02) Chest, Single Ap (07/24/17 02:02) Ct Brain W/O Iv Contrast(Rout) (07/24/17 02:02) Blood Glucose (07/24/17 02:02) Ecg Monitoring (07/24/17 02:02) Iv Access Insert/Monitor (07/24/17 02:02) Oximetry (07/24/17 02:02) Sodium Chloride 0.9% Flush (Ns Flush) (07/24/17 02:15) Sodium Chlor 0.9% 1000 Ml Inj (Ns 1000 M (07/24/17 02:02) Lactic Acid (07/24/17 02:04) Blood Culture (07/24/17 02:04) Acetaminophen (Tylenol) (07/24/17 02:15) Sodium Chlor 0.9% 1000 Ml Inj (Ns 1000 M (07/24/17 02:30) Hydromorphone Pf Inj (Dilaudid Pf Inj) (07/24/17 02:30) Cefepime Inj (Maxipime Inj) (07/24/17 03:45) Vancomycin Inj (Vancomycin Inj) (07/24/17 03:45) Ct Pulmonary Angiogram (07/24/17 ) Iohexol 350 Inj (Omnipaque 350 Inj) (07/24/17 01:12) Admit Order (Ed Use Only) (07/24/17 ) Unit Support Representative / Telemetry [id number] (07/24/17 05:15) Activity Bed Rest (07/24/17 05:15) Notify Dr: Other (07/24/17 05:15) ^ Seizure Precautions (07/24/17 05:15) Labs Laboratory Tests Test 07/24/17 02:00 07/24/17 03:30 White Blood Count 18.6 TH/MM3 Red Blood Count 3.63 MIL/MM3 Hemoglobin 10.3 GM/DL Hematocrit 31.2 % Mean Corpuscular Volume 85.8 FL Mean Corpuscular Hemoglobin 28.2 PG Mean Corpuscular Hemoglobin Concent 32.9 % Red Cell Distribution Width 15.1 % Platelet Count 422 TH/MM3 Mean Platelet Volume 8.3 FL Neutrophils (%) (Auto) 87.0 % Lymphocytes (%) (Auto) 7.8 % Monocytes (%) (Auto) 4.1 % Eosinophils (%) (Auto) 0.8 % Basophils (%) (Auto) 0.3 % Neutrophils # (Auto) 16.2 TH/MM3 Lymphocytes # (Auto) 1.5 TH/MM3 Monocytes # (Auto) 0.8 TH/MM3 Eosinophils # (Auto) 0.1 TH/MM3 Basophils # (Auto) 0.1 TH/MM3 CBC Comment DIFF FINAL Differential Comment Prothrombin Time 11.1 SEC Prothromb Time International Ratio 1.1 RATIO Blood Urea Nitrogen 15 MG/DL Creatinine 0.79 MG/DL Random Glucose 89 MG/DL Total Protein 7.7 GM/DL Albumin 3.6 GM/DL Calcium Level 8.2 MG/DL Magnesium Level 2.0 MG/DL Alkaline Phosphatase 137 U/L Aspartate Amino Transf (AST/SGOT) 25 U/L Alanine Aminotransferase (ALT/SGPT) 20 U/L Total Bilirubin 1.2 MG/DL Sodium Level 139 MEQ/L Potassium Level 4.0 MEQ/L Chloride Level 104 MEQ/L Carbon Dioxide Level 23.9 MEQ/L Anion Gap 11 MEQ/L Estimat Glomerular Filtration Rate 87 ML/MIN Lactic Acid Level 0.9 mmol/L Total Creatine Kinase 63 U/L Troponin I LESS THAN 0.02 NG/ML B-Type Natriuretic Peptide 119 PG/ML Ethyl Alcohol Level LESS THAN 3 MG/DL Urine Color YELLOW Urine Turbidity CLEAR Urine pH 5.0 Urine Specific [place] 1.013 Urine Protein NEG mg/dL Urine Glucose (UA) NEG mg/dL Urine Ketones NEG mg/dL Urine Occult Blood NEG Urine Nitrite NEG Urine Bilirubin NEG Urine Urobilinogen 2.0 MG/DL Urine Leukocyte Esterase NEG Urine WBC 1 /hpf Urine Squamous Epithelial Cells <1 /hpf Urine Mucus FEW /lpf Microscopic Urinalysis Comment CULT NOT INDICATED Urine Opiates Screen POS Urine Barbiturates Screen NEG Urine Amphetamines Screen NEG Urine Benzodiazepines Screen POS Urine Cocaine Screen NEG Urine Cannabinoids Screen NEG MDM Medical Decision Making Medical Screen Exam Complete: Yes Emergency Medical Condition: Yes Medical Record Reviewed: Yes Interpretation(s) EKG: sinus tachycardic rate 105 right ventricular conduction delay; no acute ST elevation injury pattern or ectopy noted Last Impressions Head CT 07/24/17 0202 Signed Impressions: CONCLUSION: Stable old encephalomalacia on the right. Chest X-Ray 07/24/17 0202 Signed Impressions: CONCLUSION: No acute cardiopulmonary disease. CT Angiography 07/24/17 0000 Signed Impressions: CONCLUSION: 1. There is no evidence for pulmonary embolus. 2. Patchy parenchymal infiltrates in the lungs worse in the left upper lobe wi th a tiny right pleural effusion. CBC & BMP Diagram 07/24/17 02:00 Total Protein 7.7, Albumin 3.6, Calcium Level 8.2 L, Magnesium Level 2.0, Alkaline Phosphatase 137 H, Aspartate Amino Transf (AST/SGOT) 25, Alanine Aminotransferase (ALT/SGPT) 20, Total Bilirubin 1.2 H Vital Signs Date Time Temp Pulse Resp B/P (MAP) Pulse Ox O2 Delivery O2 Flow Rate FiO2 07/24/17 01:14 103.0 108 22 126/64 (84) 98 Troponin I: Less than 0.02, not elevated Lactic acid: 0.9, not elevated Urine drug screen: positive for opiates and benzodiazepines. Differential Diagnosis Syncope seizure sepsis arrhythmia electrolyte disturbance dehydration vasovagal near syncope/syncope minor closed head injury chest pain atypical chest pain PE Narrative Course Patient placed on monitor worker IV access obtained specimens collected and sent for resulting patient administered Tylenol for fever of 103 cultures obtained and lactic acid obtained patient given cefepime and vancomycin presumptively as well as bolus of normal saline and maintenance IV fluids [id number] urine test is negative CT brain noncontrast and CT pulmonary angiogram ordered Patient identified to have white count of 18,000 with left shift; lactic acid is not elevated 0.9 however patient did present with fever of 10 3F and tach cardiac with heart rate of 108 therefore meets sepsis criteria and chest x-ray shows patchy infiltrates CT pulmonary angiogram is negative for PE patchy infiltrates are noted and small effusion Urine drug screen is positive for opiates and benzodiazepines Patient remains subtherapeutic with her warfarin level at 1.1; troponin I is less than 0.02 Patient will be admitted for syncope rule out seizure possibly breakthrough seizure due to patient stating that her seizures are are not as well controlled on Topamax as a had been on Keppra; sepsis patient presents with fever 103 heart rate 118 white cell count elevation of 18,000 with patchy pulmonary infiltrates will treat presumptively for sepsis per protocol Patient's case discussed with medicine physician for admission Sepsis Criteria SIRS Criteria (2 or more): Temp > 100.9 or < 96.8, WBC > 56358, < 4000 or > 10 % bands Sepsis Criteria (SIRS+source): Infect source susp/known (pneumonia) Physician Communication Physician Communication call placed to [facility] MD Diagnosis Primary Impression: Syncope Additional Impressions: Seizure Sepsis Admitting Information Admitting Physician Requests: Admit Lupe Tena MD July 24, 2017 04:02
--- NOTE | 2017-07-24 04:54 | RADRPT ---
EXAM DATE: 07/24/2017 4:37 AM EDT AGE/SEX: 26 years / Female INDICATIONS: Dizziness CLINICAL DATA: This is the patient's initial encounter. Patient reports that signs and symptoms have been present for 1 day and indicates a pain score of 0/10. MEDICAL/SURGICAL HISTORY: Cardiovascular disease. Deep venous thrombosis. Cerebrovascular disease . Seizures PE Pacemaker. Aortic valve replacement RADIATION DOSE: 56.35 CTDI (mGy) COMPARISON: [facility], CT BRAIN W/O CONTRAST, 06/18/2017. . TECHNIQUE: CT of the head without contrast. Using automated exposure control and adjustment of the mA and/or kV according to patient size, radiation dose was kept as low as reasonably achievable to ob tain optimal diagnostic quality images. FINDINGS: There is no evidence for intracranial hemorrhage, mass effect, mass lesions, edema, or extra-axial fl uid collections. The visualized bony structures appear intact. The ventricles are normal size for t he patient's age. Again noted is old encephalomalacia in the right parietal lobe not significantly c hanged and right frontal lobe near basal ganglia. There are no signs of acute infarction for techniqu e. CONCLUSION: Stable old encephalomalacia on the right. Electronically signed by: Ryan Williamson MD 07/24/2017 4:53 AM EDT
--- NOTE | 2017-07-24 04:59 | RADRPT ---
EXAM DATE: 07/24/2017 4:43 AM EDT AGE/SEX: 26 years / Female INDICATIONS: Chest pain. History of emboli. CLINICAL DATA: This is the patient's initial encounter. Patient reports that signs and symptoms have been present for 1 day and indicates a pain score of 5/10. MEDICAL/SURGICAL HISTORY: Cardiovascular disease. Deep venous thrombosis. Cerebrovascular disease . Seizures PE Hep C Pacemaker. Aortic valve replacement RADIATION DOSE: 10.28 CTDI (mGy) COMPARISON: [facility] [place], CT PULMONARY ANGIOGRAM, 04/26/2017. . TECHNIQUE: Volumetric scanning was performed using a multi-row detector CT scanner during bolus infu calixto of 74 ml Omnipaque 350 (iohexol) nonionic water-soluble contrast as a single exam dose. The derrick a was post processed with a variety of visualization algorithms including full volume maximum intensi ty projection and sliding thin slab reformation. Using automated exposure control and adjustment of the mA and/or kV according to patient size, radiation dose was kept as low as reasonably achievable t o obtain optimal diagnostic quality images. FINDINGS: Patchy parenchymal infiltrates are present in bilateral upper lobes and right lower lobe. There is a tiny right pleural effusion. No definite pulmonary embolus is seen. There is a tiny 2 mm stone in the left kidney. CONCLUSION: 1. There is no evidence for pulmonary embolus. 2. Patchy parenchymal infiltrates in the lungs worse in the left upper lobe with a tiny right pleura l effusion. Electronically signed by: Ryan Williamson MD 07/24/2017 4:57 AM EDT
[2017-07-24] MEDS ORDERED: LORazepam 2 MG/ML VIAL IV PUSH PRN (05:15)
[2017-07-24] MEDS ORDERED: SODIUM CHLORIDE 0.9% FLUSH 10 ML FLUSH IV FLUSH PRN (05:15)
[2017-07-24] MEDS ORDERED: Vancomycin Consult Pharmacy 1 EA OTHER SCH (05:15)
[2017-07-24] MEDS ORDERED: ACETAMINOPHEN 325 MG TAB PO PRN (05:15)
[2017-07-24] MEDS: SODIUM CHLORIDE 0.9% FLUSH 10 ML FLUSH IV FLUSH SCH ×2 (08:04→22:11)
[2017-07-24] MEDS ORDERED: oxyCODONE/ACETAMINOPHEN 10 MG/325 MG TAB PO PRN (09:15)
[2017-07-24] MEDS: oxyCODONE/ACETAMINOPHEN 10 MG/325 MG TAB PO PRN ×2 (10:31→23:28)
[2017-07-24] MEDS: CEFEPIME INJ 2,000 MG in SODIUM CHLORIDE 0.9% INJ 100 ML IV SCH ×2 (12:07→22:11)
--- NOTE | 2017-07-24 12:41 | HHI.HP ---
[facility] Primary Care Physician Unknown Admission Diagnosis sepsis; pneumonia; seizure d/o; cephalgia Diagnoses: (1) Pneumonia Diagnosis: Principal (2) Sepsis Diagnosis: Principal (3) Pleural effusion Diagnosis: Secondary (4) Fever Diagnosis: Principal (5) History of endocarditis Diagnosis: Secondary (6) Hx of intravenous drug use in remission Diagnosis: Secondary Travel History International Travel<30 Days: No Contact w/Intl Traveler <30 Da: No Traveled to Known Affected Are: No Sepsis Criteria SIRS Criteria (2 or more): Temp > 100.9 or < 96.8, Heart rate over 90, RR > 20 or PaCO2 < 32, WBC > 78184, < 4000 or > 10% bands History of Present Illness Mrs. Bazan is a 26-year-old female. She has a past history of infective endocarditis in 2010. Related to her past history of IV drug abuse and the infective endocarditis she has had mitral valve and tricuspid valve replacements. 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 She has seizure disorder and cirrhosis. She comes to the hospital with 3 day complaint of progressive malaise and onset of fever and cough. She also says she has been having some chest pains with deep breathing and headache. Workup shows that she has evidence for left upper lobe pneumonia with possible patchy infiltrates bilaterally. She has a fever, tachycardia, tachypnea, and leukocytosis, meeting criteria for sepsis. No lactic acidosis or evidence of organ failure. No other complaints today. Review of Systems Constitutional: COMPLAINS OF: Fatigue, Fever, Chills Eyes: DENIES: Diplopia, Eye inflammation, Eye pain Ears, nose, mouth, throat: DENIES: Hearing loss, Vertigo, Nasal discharge Respiratory: COMPLAINS OF: Cough, DENIES: Apneas, Snoring, Wheezing, Shortness of breath Cardiovascular: DENIES: Chest pain, Palpitations, Syncope Gastrointestinal: DENIES: Abdominal pain, Black stools, Bloody stools Musculoskeletal: DENIES: Joint pain, Muscle aches, Stiffness Integumentary: DENIES: Abnormal pigmentation, Pruritus, Rash, Nail changes Hematologic/lymphatic: DENIES: Bruising, Lymphadenopathy Immunologic/allergic: DENIES: Eczema, Urticaria Neurologic: DENIES: Abnormal gait, Headache, Paresthesias Psychiatric: DENIES: Anxiety, Confusion, Depression Past Family Social History Past Medical History History of bacterial endocarditis status post prosthetic mitral/ tricuspid valves in 2000. 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 Apparently the patient had a redo Valve replacements in 2016 at [facility] History of respiratory failure requiring intubation and tracheostomy History of renal failure History of seizures History of spontaneous bacterial peritonitis History of intracranial abscess Past Surgical History Mitral/Tricuspid Valve Replacement (Bovine/Porcine) Cholecystectomy Splenectomy Liver biopsy Tracheostomy Multiple paracentesis Carpal tunnel surgery R wrist Pacemaker placement Reported Medications Reported Meds & Active Scripts Active Reported Ferrous Sulfate 325 Mg (65 Mg Iron) Tablet 325 Mg PO BIDPC Coumadin (Warfarin) 5 Mg Tab 5 Mg PO DAILY Metoprolol Tartrate 25 Mg Tab 12.5 Mg PO BID Lisinopril 20 Mg Tab 20 Mg PO DAILY Methocarbamol 500 Mg Tab 500 Mg PO TID Topamax (Topiramate) 50 Mg Tab 50 Mg PO BID Oxycodone-Acetaminophen 10-325 mg Tab 1 Tab PO TID PRN Aspirin Low Dose (Aspirin) 81 Mg Chew 81 Mg CHEW DAILY Prozac (Fluoxetine HCl) 10 Mg Cap 20 Mg PO DAILY Allergies: Coded Allergies: Fish Containing Products (Unverified Allergy, Severe, THROAT SWOLLEN/HIVES , 07/24/17) codeine (Unverified Allergy, Severe, HIVES/VOMITING, 07/24/17) gabapentin (Unverified Allergy, Severe, Hives, 07/24/17) morphine (Unverified Allergy, Severe, Hives, 07/24/17) naproxen (Unverified Allergy, Severe, Hives, 07/24/17) piperacillin (Verified Allergy, Severe, Hives, 07/24/17) tazobactam (Verified Allergy, Severe, Hives, 07/24/17) Active Ordered Medications Administered Medications Medications (Trade) Dose Ordered Sig/Lele Route PRN Reason Start Time Stop Time Status Last Admin Dose Admin Sodium Chloride 1,000 ml @ 125 mls/hr Q8H IV 07/24/17 02:30 07/24/17 10:33 Cefepime HCl 2000 mg/Sodium Chloride 100 ml @ 200 mls/hr Q8H IV 07/24/17 12:00 07/24/17 12:07 Sodium Chloride (NS Flush) 2 ml BID IV FLUSH 07/24/17 09:00 07/24/17 08:04 Acetaminophen (Tylenol) 650 mg Q4H PRN PO PAIN SCALE 1 TO 2 07/24/17 05:15 07/24/17 08:03 Oxycodone/ Acetaminophen (Percocet 10-325 Mg) 1 tab Q6H PRN PO Pain 7 to 10 07/24/17 09:30 07/24/17 10:31 Family History Mother with history of DE 2. First 1 at 35 years old Brother with a history of DE 1 Social History Past history of IV drug abuse Patient reports being sober from IV drug abuse since 2016 No tobacco or alcohol use. Physical Exam Vital Signs Vital Signs Date Time Temp Pulse Resp B/P (MAP) Pulse Ox O2 Delivery O2 Flow Rate FiO2 07/24/17 11:31 15 07/24/17 09:00 16 07/24/17 08:58 98.2 84 16 126/75 (92) 100 07/24/17 08:04 81 16 99 Room Air 07/24/17 08:04 98.5 80 6 121/56 (77) 98 Room Air 07/24/17 07:00 16 07/24/17 03:00 104 16 121/62 (81) 97 Room Air 07/24/17 01:14 103.0 108 22 126/64 (84) 98 Physical Exam GENERAL: NAD, A&Ox3 HEAD: Normocephalic. NECK: Supple, trachea midline. No lymphadenopathy. EYES: No scleral icterus. No injection or drainage. CARDIOVASCULAR: Regular rate and rhythm without murmurs, gallops, or rubs. RESPIRATORY: Breath sounds equal bilaterally. No accessory muscle use. GASTROINTESTINAL: Abdomen soft, non-tender, nondistended. MUSCULOSKELETAL: No cyanosis, or edema. SKIN: Warm and dry. Sternal scar. NEURO: No focal neurological deficitis. Laboratory Laboratory Tests Test 07/24/17 02:00 07/24/17 03:30 White Blood Count 18.6 Red Blood Count 3.63 Hemoglobin 10.3 Hematocrit 31.2 Mean Corpuscular Volume 85.8 Mean Corpuscular Hemoglobin 28.2 Mean Corpuscular Hemoglobin Concent 32.9 Red Cell Distribution Width 15.1 Platelet Count 422 Mean Platelet Volume 8.3 Neutrophils (%) (Auto) 87.0 Lymphocytes (%) (Auto) 7.8 Monocytes (%) (Auto) 4.1 Eosinophils (%) (Auto) 0.8 Basophils (%) (Auto) 0.3 Neutrophils # (Auto) 16.2 Lymphocytes # (Auto) 1.5 Monocytes # (Auto) 0.8 Eosinophils # (Auto) 0.1 Basophils # (Auto) 0.1 CBC Comment DIFF FINAL Differential Comment Prothrombin Time 11.1 Prothromb Time International Ratio 1.1 Blood Urea Nitrogen 15 Creatinine 0.79 Random Glucose 89 Total Protein 7.7 Albumin 3.6 Calcium Level 8.2 Magnesium Level 2.0 Alkaline Phosphatase 137 Aspartate Amino Transf (AST/SGOT) 25 Alanine Aminotransferase (ALT/SGPT) 20 Total Bilirubin 1.2 Sodium Level 139 Potassium Level 4.0 Chloride Level 104 Carbon Dioxide Level 23.9 Anion Gap 11 Estimat Glomerular Filtration Rate 87 Lactic Acid Level 0.9 Total Creatine Kinase 63 Troponin I LESS THAN 0.02 B-Type Natriuretic Peptide 119 Ethyl Alcohol Level LESS THAN 3 Urine Color YELLOW Urine Turbidity CLEAR Urine pH 5.0 Urine Specific [place] 1.013 Urine Protein NEG Urine Glucose (UA) NEG Urine Ketones NEG Urine Occult Blood NEG Urine Nitrite NEG Urine Bilirubin NEG Urine Urobilinogen 2.0 Urine Leukocyte Esterase NEG Urine WBC 1 Urine Squamous Epithelial Cells <1 Urine Mucus FEW Microscopic Urinalysis Comment CULT NOT INDICATED Urine Opiates Screen POS Urine Barbiturates Screen NEG Urine Amphetamines Screen NEG Urine Benzodiazepines Screen POS Urine Cocaine Screen NEG Urine Cannabinoids Screen NEG Date/Time Source Procedure Growth Status 07/24/17 02:05 Blood Peripheral Aerobic Blood Culture Pending Received 07/24/17 02:05 Blood Peripheral Anaerobic Blood Culture Pending Received Result Diagram: 07/24/17 0200 07/24/17 0200 Imaging Last Impressions Head CT 07/24/17201 Signed Impressions: CONCLUSION: Stable old encephalomalacia on the right. Chest X-Ray 07/24/17201 Signed Impressions: CONCLUSION: No acute cardiopulmonary disease. CT Angiography 07/24/17 0000 Signed Impressions: CONCLUSION: 1. There is no evidence for pulmonary embolus. 2. Patchy parenchymal infiltrates in the lungs worse in the left upper lobe wi th a tiny right pleural effusion. Caprini VTE Risk Assessment Caprini VTE Risk Assessment: No/Low Risk (score <= 1) Caprini Risk Assessment Model Point Value = 1 Point Value = 2 Point Value = 3 Point Value = 5 Age 41-60 Minor surgery BMI > 25 kg/m2 Swollen legs Varicose veins or History of unexplained or recurrent spontaneous Oral contraceptives or hormone replacement Sepsis (< 1 month) Serious lung disease, including pneumonia (< 1 month) Abnormal pulmonary function Acute myocardial infarction Congestive heart failure (< 1 month) History of inflammatory bowel disease Medical patient at bed rest Age 61-74 Arthroscopic surgery Major open surgery (> 45 min) Laparoscopic surgery (> 45 min) Malignancy Confined to bed (> 72 hours) Immobilizing plaster cast Central venous access Age >= 75 History of VTE Family history of VTE Factor V Leiden Prothrombin [id number] Lupus anticoagulant Anticardiolipin antibodies Elevated serum homocysteine Heparin-induced thrombocytopenia Other congenital or acquired thrombophilia Stroke (< 1 month) Elective arthroplasty Hip, pelvis, or leg fracture Acute spinal cord injury (< 1 month) Prophylaxis Regimen Total Risk Factor Score Risk Level Prophylaxis Regimen 0-1 Low Early ambulation 2 Moderate Order ONE of the following: *Sequential Compression Device (SCD) *Heparin 5000 units SQ BID 3-4 Higher Order ONE of the following medications: *Heparin 5000 units SQ TID *Enoxaparin/Lovenox 40 mg SQ daily (WT < 150 kg, CrCl > 30 mL/min) *Enoxaparin/Lovenox 30 mg SQ daily (WT < 150 kg, CrCl > 10-29 mL/min) *Enoxaparin/Lovenox 30 mg SQ BID (WT < 150 kg, CrCl > 30 mL/min) AND/OR *Sequential Compression Device (SCD) 5 or more Highest Order ONE of the following medications: *Heparin 5000 units SQ TID (Preferred with Epidurals) *Enoxaparin/Lovenox 40 mg SQ daily (WT < 150 kg, CrCl > 30 mL/min) *Enoxaparin/Lovenox 30 mg SQ daily (WT < 150 kg, CrCl > 10-29 mL/min) *Enoxaparin/Lovenox 30 mg SQ BID (WT < 150 kg, CrCl > 30 mL/min) AND *Sequential Compression Device (SCD) Assessment and Plan Problem List: (1) Sepsis ICD Code: A41.9 - Sepsis, unspecified organism Status: Acute (2) Pleural effusion ICD Code: J90 - Pleural effusion Status: Acute (3) Pneumonia ICD Code: J18.9 - Pneumonia, unspecified organism (4) Community acquired pneumonia ICD Code: J18.9 - Community acquired pneumonia Status: Acute Assessment and Plan 26-year-old female admitted secondary to pneumonia with sepsis Sepsis Follow vital signs closely Monitor trends and fever pattern IV hydration Monitor till resolve Community-acquired pneumonia Continue cefepime Continue vancomycin Azithromycin Oxygen as needed Follow clinically for improvement Given past history there is a risk for infective endocarditis as an etiology for her pneumonia 2D echocardiogram to screen for vegetations Follow blood cultures Left hemiplegia Supportive care history of bacterial endocarditis status post prosthetic mitral/ tricuspid valves in 2000. 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 Apparently the patient had a redo Valve replacements in 2015 at [facility] History of respiratory failure requiring intubation and tracheostomy History of renal failure History of seizures History of spontaneous bacterial peritonitis History of intracranial abscess Follow CBC and CMP Follow for any exacerbation of these conditions DVT prophylaxis SCDs Physician Certification 2 Midnight Certification Type: Admission for Inpatient Services Order for Inpatient Services The services are ordered in accordance with Medicare regulations or non- Medicare payer requirements, as applicable. In the case of services not specified as inpatient-only, they are appropriately provided as inpatient services in accordance with the 2-midnight benchmark. Estimated LOS (days): 2 days is the estimated time the patient will need to remain in the hospital, assuming treatment plan goals are met and no additional complications. Post-Hospital Plan: Home Bacilio Gaona MD July 24, 2017 12:41
[2017-07-24] MEDS: IBUPROFEN 200 MG TAB PO SCH ×2 (14:00→22:10)
[2017-07-24] MEDS: AZITHROMYCIN INJ 500 MG in SODIUM CHLOR 0.9% 250 ML INJ 250 ML IV SCH (14:39)
[2017-07-24] MEDS: METHOCARBAMOL 500 MG TAB PO SCH ×2 (14:39→18:57)
[2017-07-24] MEDS ORDERED: VANCOMYCIN INJ 1,000 MG in SODIUM CHLOR 0.9% 250 ML INJ 250 ML IV SCH (15:30)
[2017-07-24] MEDS: VANCOMYCIN INJ 1,250 MG in SODIUM CHLOR 0.9% 250 ML INJ 250 ML IV SCH (16:52)
[2017-07-24] MEDS: oxyCODONE/ACETAMINOPHEN 5 MG/325 MG TAB PO PRN (16:52)
[2017-07-24] MEDS: FERROUS SULFATE 325 MG (65 MG ELEMENTAL IRON) TAB PO SCH (18:57)
--- NOTE | 2017-07-24 19:13 | RADRPT ---
EXAM DATE: 07/24/2017 7:07 PM EDT AGE/SEX: 26 years / Female INDICATIONS: Trauma, fall. Syncopal episode. Posterior left cranial pain. CLINICAL DATA: This is the patient's initial encounter. Patient reports that signs and symptoms have been present for 1 day and indicates a pain score of 4/10. MEDICAL/SURGICAL HISTORY: Cerebrovascular disease. Cardiovascular disease. Hepatitis C. Seizure. Brain abscess. None. RADIATION DOSE: 35.73 CTDI (mGy) COMPARISON: C, CT BRAIN W/O CONTRAST, 07/24/2017. [facility], CT BRAIN W/O CONTRAST, 06/18/2017. . TECHNIQUE: CT of the head without contrast. Using automated exposure control and adjustment of the mA and/or kV according to patient size, radiation dose was kept as low as reasonably achievable to ob tain optimal diagnostic quality images. FINDINGS: Cerebrum: The ventricles are normal. No midline shift, mass lesion, hemorrhage or acute infarction. No extraaxial fluid collections are seen. There is stable low-density encephalomalacia in the right frontoparietal region. Posterior Fossa: The cerebellum and brainstem demonstrate no acute abnormality. The 4th ventricle is midline. The cerebellopontine angle is within normal limits. Extracranial: The visualized sinuses are clear. Skull: The calvaria is intact. No skull fracture. CONCLUSION: 1. Stable noncontrast head CT. No acute intracranial abnormality is identified. 2. There is stable right frontoparietal region encephalomalacia. Electronically signed by: Alex Brush MD 07/24/2017 7:12 PM EDT
--- NOTE | 2017-07-24 21:08 | MB ---
cc: Ramon Roth MD, PhD Ramon Roth MD PhD DATE: 07/24/2017 REASON FOR CONSULTATION: Breakthrough seizure. HISTORY OF PRESENT ILLNESS: Ms. Bazan is a 26-year-old female who has a history of IV drug abuse with endocarditis secondary to that and also a secondary stroke in the right hemisphere causing left-sided weakness. She is status post mitral valve and tricuspid valve replacement as well as pacemaker placement. The patient has a history of secondary seizures. In the past, she was on Keppra 500 mg b.i.d., which overall controlled the seizures. She also was on Topamax for headaches. Her Keppra was weaned off several months ago, feeling that the Topamax may be helpful for her seizures. However, she has continued to have occasional grand mal seizures, despite Topamax therapy. PAST MEDICAL HISTORY: History of infective endocarditis in 2010 related to IV drug abuse, status post mitral valve and tricuspid valve replacement, secondary stroke most likely from septic emboli from endocarditis, secondary seizures, history of cirrhosis. CURRENT MEDICATIONS: 1. Coumadin 5 mg daily. 2. Aspirin 81 mg daily. 3. Prozac 20 mg daily. 4. Lisinopril 20 mg daily. 5. Lopressor 12.5 mg b.i.d. 6. Topamax 50 mg b.i.d. 7. Iron sulfate 325 mg b.i.d. 8. Vancomycin. 9. Azithromycin 10. Robaxin, 11. Dilaudid as needed for pain 12. Cefepime 13. Oxycodone p.r.n. pain. 14. Lorazepam 2 mg p.r.n. seizure. NEUROLOGIC EXAMINATION: VITAL SIGNS: Blood pressure 105/59, pulse 86, respiratory rate 18, temperature 98.3 degrees. Higher cortical functions are normal. Cranial nerves intact. Motor exam: She has left-sided weakness from her previous stroke at about 4/5 with normal strength on the right. IMAGING STUDIES: CT of the brain shows an area of encephalomalacia in the right hemisphere involving the right frontal area as well as the right parietal area from her previous stroke. No acute change identified. No hemorrhage is seen. LABORATORY DATA: White count 18,600, hemoglobin 10.3, hematocrit 31.2%, platelet count 422,000. PT 11.1, INR 1.1. Sodium is 139, potassium is 4, chloride 104, CO2 of 23.9, BUN is 15, creatinine 0.79, glucose 89, AST 25, ALT is 20. IMPRESSION: 1. Breakthrough seizures: 2. Right hemisphere stroke from previous endocarditis. RECOMMENDATIONS: We will reinstitute Keppra 500 mg b.i.d., since this was helpful previously with controlling her seizures. Continue current dose of Topamax, which is helpful for her vascular headaches. Ramon Roth MD, PhD LATANYA/SA , 08:35 PM , 09:07 PM
[2017-07-24] MEDS ORDERED: LORazepam 1 MG TAB PO ONE (21:30)
[2017-07-24] MEDS: METOPROLOL TARTRATE 25 MG TAB PO SCH (22:10)
[2017-07-24] MEDS: TOPIRAMATE 25 MG TAB PO SCH (22:10)
[2017-07-24] MEDS: levETIRAcetam 500 MG TAB PO SCH (22:10)
[2017-07-25] VITALS (10 sets, daily range): BP systolic 95–112; BP diastolic 47–57; PULSE 53–74; RESP 16–18; TEMP 97.5–98.3; O2SAT 95–99
[2017-07-25] MEDS: IBUPROFEN 200 MG TAB PO SCH ×4 (02:36→22:28)
[2017-07-25] MEDS: HYDROmorphone HCL PF 0.5 MG/0.5 ML SYRINGE IV PUSH PRN ×4 (02:36→22:27)
[2017-07-25] MEDS: CEFEPIME INJ 2,000 MG in SODIUM CHLORIDE 0.9% INJ 100 ML IV SCH ×3 (02:37→22:26)
[2017-07-25] MEDS: VANCOMYCIN INJ 1,250 MG in SODIUM CHLOR 0.9% 250 ML INJ 250 ML IV SCH ×2 (02:37→15:00)
[2017-07-25] MEDS: ONDANSETRON ODT 4 MG TAB PO PRN (06:45)
[2017-07-25] MEDS: oxyCODONE/ACETAMINOPHEN 10 MG/325 MG TAB PO PRN ×2 (06:46→18:47)
[2017-07-25 07:25] LABS: AUTOMATED NEUTROPHIL # 2.8 TH/MM3 (1.8-7.7); BASOPHIL # 0.1 TH/MM3 (0-0.2); BASOPHIL % 1.3 % (0.0-2.0); EOSINOPHIL # 0.4 TH/MM3 (0-0.4); EOSINOPHIL % 5.4 % (0.0-4.0); HEMATOCRIT 28.5 % (35.0-46.0); HEMOGLOBIN 9.2 GM/DL (11.6-15.3); LYMPH % 41.5 % (9.0-44.0); LYMPHOCYTE # 2.9 TH/MM3 (1.0-4.8); MEAN CELL VOLUME 86.3 FL (80.0-100.0); MEAN CORPUSCULAR HGB CONC 32.4 % (32.0-36.0); MEAN PLATELET VOLUME 8.3 FL (7.0-11.0); MONO % 11.4 % (0.0-8.0); MONOCYTE # 0.8 TH/MM3 (0-0.9); NEUT % 40.4 % (16.0-70.0); PLATELET COUNT 348 TH/MM3 (150-450); RED CELL DISTRIBUTION WIDTH 14.8 % (11.6-17.2)
[2017-07-25 07:57] LABS: ALBUMIN 3.1 GM/DL (3.4-5.0); AST (GOT) 16 U/L (15-37); BICARBONATE 22.4 MEQ/L (21.0-32.0); BLOOD UREA NITROGEN 17 MG/DL (7-18); CALCIUM 8.6 MG/DL (8.5-10.1); CHLORIDE 108 MEQ/L (98-107); CREATININE 0.89 MG/DL (0.50-1.00); GLOMERULAR FILTRATION RATE 76 ML/MIN (>89); GLUCOSE,RANDOM 82 MG/DL (74-106); SODIUM (NA) 140 MEQ/L (136-145)
[2017-07-25 07:59] LABS: ALT (GPT) 20 U/L (10-53)
[2017-07-25 08:02] LABS: ALKALINE PHOSPHATASE 110 U/L (45-117); TOTAL BILIRUBIN ADULT 1.1 MG/DL (0.2-1.0); TOTAL PROTEIN 6.9 GM/DL (6.4-8.2); TROPONIN I LESS THAN 0.02 NG/ML (0.02-0.05)
--- NOTE | 2017-07-25 08:37 | EKG ---
Date Performed: 07/24/2017 Time Performed: 01:35:01 PTAGE: 26 years EKG: SINUS TACHYCARDIA, CONSIDER ECTOPIC ATRIAL TACHYCARDIA POSSIBLE RIGHT VENTRICULAR CONDUCTIO N DELAY ABNORMAL RHYTHM ECG Clinical correlation is recommended PREVIOUS TRACING : 07/11/2017 12.51 DOCTOR: Edwin Gurrola Interpretating Date/Time 07/25/2017 08:37:00
[2017-07-25] MEDS ORDERED: LISINOPRIL 20 MG TAB PO SCH (09:00)
[2017-07-25] MEDS: SODIUM CHLORIDE 0.9% FLUSH 10 ML FLUSH IV FLUSH SCH ×2 (09:00→22:26)
[2017-07-25] MEDS: FLUoxetine HCL 20 MG CAP PO SCH (09:47)
[2017-07-25] MEDS: FERROUS SULFATE 325 MG (65 MG ELEMENTAL IRON) TAB PO SCH ×2 (09:47→18:47)
[2017-07-25] MEDS: TOPIRAMATE 25 MG TAB PO SCH ×2 (09:47→22:28)
[2017-07-25] MEDS: ASPIRIN 81 MG CHEW TAB CHEW SCH (09:48)
[2017-07-25] MEDS: METOPROLOL TARTRATE 25 MG TAB PO SCH ×2 (09:48→22:27)
[2017-07-25] MEDS: METHOCARBAMOL 500 MG TAB PO SCH ×3 (09:49→18:47)
[2017-07-25] MEDS: levETIRAcetam 500 MG TAB PO SCH ×2 (09:49→22:27)
[2017-07-25] MEDS: SODIUM CHLOR 0.9% 1000 ML INJ 1,000 ML IV SCH ×2 (10:44→18:30)
--- NOTE | 2017-07-25 11:14 | HHI.PR ---
Subjective Remarks Signs of infection are improving in the last 24 hours. Patient has less headache than yesterday. She does complain of nausea. No vomiting. Objective Vital Signs Date Time Temp Pulse Resp B/P (MAP) Pulse Ox O2 Delivery O2 Flow Rate FiO2 07/25/17 08:00 97.5 65 18 100/55 (70) 96 07/25/17 04:00 60 07/25/17 03:52 98.1 67 16 106/55 (72) 98 07/25/17 00:28 16 07/25/17 00:00 61 07/24/17 23:50 98.0 63 16 95/49 (64) 94 07/24/17 19:40 97.8 74 16 109/50 (69) 98 07/24/17 19:30 71 07/24/17 16:04 98.3 86 18 105/59 (74) 97 07/24/17 15:41 97 07/24/17 12:42 98.5 75 20 108/58 (75) 97 07/24/17 12:25 98.1 76 16 122/77 (92) 99 07/24/17 11:40 98.6 59 15 129/65 (86) 99 Room Air I/O 07/24/17 07/24/17 07/24/17 07/25/17 07/25/17 07/25/17 07:00 15:00 23:00 07:00 15:00 23:00 Intake Total 1350 ml 100 ml 512.5 ml 480 ml Output Total 450 ml Balance 1350 ml 100 ml 512.5 ml 30 ml Intake Oral 480 ml IV Total 1350 ml 100 ml 512.5 ml Output Urine Total 450 ml # Voids 1 # Bowel Movements 1 Result Diagram: 07/25/17 0457 07/25/17 0457 Objective Remarks GENERAL: NAD, A&Ox3 HEAD: Normocephalic. NECK: Supple, trachea midline. No lymphadenopathy. EYES: No scleral icterus. No injection or drainage. CARDIOVASCULAR: Regular rate and rhythm without murmurs, gallops, or rubs. RESPIRATORY: Breath sounds equal bilaterally. No accessory muscle use. GASTROINTESTINAL: Abdomen soft, non-tender, nondistended. MUSCULOSKELETAL: No cyanosis, or edema. SKIN: Warm and dry. NEURO: No focal neurological deficitis. A/P Problem List: (1) Sepsis ICD Code: A41.9 - Sepsis, unspecified organism Status: Acute (2) SOB (shortness of breath) ICD Code: R06.02 - SOB (shortness of breath) Status: Acute (3) Pneumonia ICD Code: J18.9 - Pneumonia, unspecified organism Assessment and Plan 26-year-old female admitted secondary to pneumonia with sepsis Sepsis Resolved Follow vital signs Community-acquired pneumonia Clinically improving Continue cefepime Continue vancomycin Continue azithromycin Oxygen as needed Follow clinically for improvement Given past history there is a risk for infective endocarditis as an etiology for her pneumonia 2D echocardiogram to screen for vegetations Follow blood cultures Nausea Likely related to pneumonia Continue Zofran Phenergan added Left hemiplegia Supportive care history of bacterial endocarditis status post prosthetic mitral/ tricuspid valves in 2000. 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 Apparently the patient had a redo Valve replacements in 2015 at [facility] History of respiratory failure requiring intubation and tracheostomy History of renal failure History of seizures History of spontaneous bacterial peritonitis History of intracranial abscess Follow CBC and CMP Follow for any exacerbation of these conditions DVT prophylaxis SCDs Bacilio Gaona MD Jul 25, 2017 11:14
[2017-07-25] MEDS ORDERED: PROMETHAZINE HCL 25 MG TAB PO PRN (11:15)
[2017-07-25] MEDS ORDERED: PROMETHAZINE HCL 25 MG TAB PO ONE (13:00)
[2017-07-25] MEDS: AZITHROMYCIN INJ 500 MG in SODIUM CHLOR 0.9% 250 ML INJ 250 ML IV SCH (14:19)
[2017-07-25] MEDS: WARFARIN SOD 5 MG TAB PO SCH (18:48)
[2017-07-26] VITALS: PULSE 60; PULSE 77
[2017-07-26] MEDS: SODIUM CHLOR 0.9% 1000 ML INJ 1,000 ML IV SCH (02:05)
[2017-07-26] MEDS: IBUPROFEN 200 MG TAB PO SCH ×4 (02:06→21:07)
[2017-07-26] MEDS: oxyCODONE/ACETAMINOPHEN 10 MG/325 MG TAB PO PRN ×4 (02:06→21:07)
[2017-07-26] MEDS ORDERED: PHARMACY ORDERED LAB ONE (02:45)
[2017-07-26] MEDS: VANCOMYCIN INJ 1,250 MG in SODIUM CHLOR 0.9% 250 ML INJ 250 ML IV SCH (04:24)
[2017-07-26] MEDS: CEFEPIME INJ 2,000 MG in SODIUM CHLORIDE 0.9% INJ 100 ML IV SCH ×3 (04:26→21:09)
[2017-07-26 04:47] LABS: ALBUMIN 3.1 GM/DL (3.4-5.0); ALT (GPT) 19 U/L (10-53); AST (GOT) 18 U/L (15-37); BICARBONATE 22.6 MEQ/L (21.0-32.0); BLOOD UREA NITROGEN 17 MG/DL (7-18); CALCIUM 8.1 MG/DL (8.5-10.1); CHLORIDE 111 MEQ/L (98-107); CREATININE 1.01 MG/DL (0.50-1.00); GLOMERULAR FILTRATION RATE 66 ML/MIN (>89); GLUCOSE,RANDOM 108 MG/DL (74-106); SODIUM (NA) 142 MEQ/L (136-145)
[2017-07-26 04:50] LABS: ALKALINE PHOSPHATASE 108 U/L (45-117); TOTAL BILIRUBIN ADULT 0.7 MG/DL (0.2-1.0); TOTAL PROTEIN 6.5 GM/DL (6.4-8.2)
[2017-07-26 04:55] VITALS: BP 109/51; PULSE 64; RESP 16; TEMP 98; O2SAT 92
[2017-07-26] MEDS: HYDROmorphone HCL PF 0.5 MG/0.5 ML SYRINGE IV PUSH PRN ×4 (05:21→23:45)
[2017-07-26] MEDS: ONDANSETRON ODT 4 MG TAB PO PRN (05:25)
[2017-07-26 08:00] VITALS: BP 94/54; PULSE 55; PULSE 60; RESP 18; TEMP 97.8; O2SAT 97
[2017-07-26 08:21] LABS: AUTOMATED NEUTROPHIL # 2.8 TH/MM3 (1.8-7.7); BASOPHIL # 0.1 TH/MM3 (0-0.2); BASOPHIL % 1.4 % (0.0-2.0); EOSINOPHIL # 0.5 TH/MM3 (0-0.4); EOSINOPHIL % 7.3 % (0.0-4.0); HEMATOCRIT 28.7 % (35.0-46.0); HEMOGLOBIN 9.3 GM/DL (11.6-15.3); LYMPH % 40.5 % (9.0-44.0); MEAN CELL VOLUME 86.8 FL (80.0-100.0); MEAN CORPUSCULAR HEMOGLOBIN 28.1 PG (27.0-34.0); MEAN CORPUSCULAR HGB CONC 32.4 % (32.0-36.0); MEAN PLATELET VOLUME 8.4 FL (7.0-11.0); MONO % 11.9 % (0.0-8.0); MONOCYTE # 0.9 TH/MM3 (0-0.9); NEUT % 38.9 % (16.0-70.0); PLATELET COUNT 364 TH/MM3 (150-450); RED BLOOD COUNT 3.31 MIL/MM3 (4.00-5.30); RED CELL DISTRIBUTION WIDTH 15.4 % (11.6-17.2); WHITE BLOOD COUNT 7.3 TH/MM3 (4.0-11.0)
[2017-07-26] MEDS: FERROUS SULFATE 325 MG (65 MG ELEMENTAL IRON) TAB PO SCH ×2 (08:24→18:44)
[2017-07-26] MEDS: FLUoxetine HCL 20 MG CAP PO SCH (08:24)
[2017-07-26] MEDS: METOPROLOL TARTRATE 25 MG TAB PO SCH ×2 (08:25→21:06)
[2017-07-26] MEDS: ASPIRIN 81 MG CHEW TAB CHEW SCH (08:25)
[2017-07-26] MEDS: levETIRAcetam 500 MG TAB PO SCH ×2 (08:25→21:06)
[2017-07-26] MEDS: METHOCARBAMOL 500 MG TAB PO SCH ×3 (08:25→18:45)
[2017-07-26] MEDS: TOPIRAMATE 25 MG TAB PO SCH ×2 (08:25→21:06)
[2017-07-26] MEDS: SODIUM CHLORIDE 0.9% FLUSH 10 ML FLUSH IV FLUSH SCH ×2 (08:28→21:09)
[2017-07-26] MEDS: VANCOMYCIN 1,000 MG/NS 250 ML IV SCH ×4 (11:20→21:36)
[2017-07-26 12:00] VITALS: BP 96/52; PULSE 48; PULSE 60; RESP 18; TEMP 98.2; O2SAT 99
[2017-07-26] MEDS: AZITHROMYCIN INJ 500 MG in SODIUM CHLOR 0.9% 250 ML INJ 250 ML IV SCH (15:10)
[2017-07-26 16:00] VITALS: BP 94/54; PULSE 67; PULSE 73; RESP 18; TEMP 98.1; O2SAT 98
--- NOTE | 2017-07-26 16:21 | HHI.PR ---
Subjective Remarks Patient appears to be resting comfortably in bed with her boyfriend. She states that she still gets dyspnea when she walks further than the bathroom. She complained to the nurse of abdominal pain and suspects ascites which she has had before. Objective Vitals Vital Signs Date Time Temp Pulse Resp B/P (MAP) Pulse Ox O2 Delivery O2 Flow Rate FiO2 07/26/17 12:00 98.2 60 18 96/52 (67) 99 07/26/17 08:00 55 07/26/17 08:00 97.8 60 18 94/54 (67) 97 07/26/17 04:55 98.0 64 16 109/51 (70) 92 07/26/17 00:00 60 07/25/17 23:38 16 07/25/17 23:10 97.9 63 16 95/47 (63) 97 07/25/17 20:30 98.1 69 16 112/55 (74) 95 07/25/17 20:00 53 I/O 07/25/17 07/25/17 07/25/17 07/26/17 07/26/17 07/26/17 07:00 15:00 23:00 07:00 15:00 23:00 Intake Total 480 ml 100 ml 480 ml 120 ml 1250 ml 100 ml Output Total 450 ml 650 ml Balance 30 ml 100 ml 480 ml -530 ml 1250 ml 100 ml Intake Oral 480 ml 480 ml 120 ml IV Total 100 ml 1250 ml 100 ml Output Urine Total 450 ml 650 ml # Voids 4 # Bowel Movements 1 0 Result Diagram: 07/26/17 0722 07/26/17 0359 Objective Remarks GENERAL: Well-nourished, well-developed patient. SKIN: Warm and dry. HEAD: Normocephalic. EYES: No scleral icterus. No injection or drainage. NECK: Supple, trachea midline. No JVD or lymphadenopathy. CARDIOVASCULAR: Regular rate and rhythm without murmurs, gallops, or rubs. RESPIRATORY: Crackles in right lower lobe, scattered congestive sounds throughout bases. No accessory muscle use. GASTROINTESTINAL: Abdomen soft, non-tender, nondistended. EXTREMITIES: No cyanosis, or edema. NEUROLOGICAL: Awake, alert, and oriented x 3. Non-focal. A/P Problem List: (1) Sepsis ICD Code: A41.9 - Sepsis, unspecified organism Status: Acute (2) Pleural effusion ICD Code: J90 - Pleural effusion Status: Acute (3) Pneumonia ICD Code: J18.9 - Pneumonia, unspecified organism (4) Community acquired pneumonia ICD Code: J18.9 - Community acquired pneumonia Status: Acute Assessment and Plan 26-year-old female admitted secondary to pneumonia with sepsis Community-acquired pneumonia, sepsis Clinically improving, no longer showing signs of sepsis Continue cefepime, vancomycin, azithromycin Patient is off of oxygen currently 2D echocardiogram pending to screen for vegetations given history Blood cultures show no growth in 2 days Nausea Mostly resolved, continue Zofran and Phenergan Left hemiplegia Chronic, continue supportive care History of cirrhosis and ascites, hep C, SBP Patient complains of abdominal pressure Will get screening ultrasound to investigate for ascites history of bacterial endocarditis status post prosthetic mitral/ tricuspid valves in 2000. 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 Apparently the patient had a redo Valve replacements in 2015 at [facility] History of respiratory failure requiring intubation and tracheostomy History of renal failure, seizures, intracranial abscess Monitor for changes DVT prophylaxis SCDs Obinna Gaona MD Jul 26, 2017 16:21
[2017-07-26] MEDS: WARFARIN SOD 5 MG TAB PO SCH (16:34)
[2017-07-26 20:00] VITALS: BP 94/47; PULSE 63; RESP 18; TEMP 98.2; O2SAT 97
[2017-07-27] VITALS (11 sets, daily range): BP systolic 93–109; BP diastolic 45–53; PULSE 49–67; RESP 17–20; TEMP 97.3–98.1; O2SAT 95–100
--- NOTE | 2017-07-27 00:56 | RADRPT ---
EXAM DATE: 07/27/2017 12:36 AM EDT AGE/SEX: 26 years / Female INDICATIONS: Shortness of breath. CLINICAL DATA: This is the patient's subsequent encounter. Patient reports that signs and symptoms h ave been present for 4 - 6 days and indicates a pain score of 0/10. MEDICAL/SURGICAL HISTORY: Stroke. Hypotension Pacemaker. Aortic valve replacement. COMPARISON: [facility] [place], CHEST SINGLE AP, 07/24/2017. . FINDINGS: The patient is status post sternotomy. There is a pacing device seen in the left chest. The cardiac s ilhouette is enlarged. There is a mild right pleural effusion. There is an increased density at the r ight base. CONCLUSION: Cardiomegaly. Mild right pleural effusion with some accompanying atelectasis or consolidation at the right lung bas e. Electronically signed by: Alex Tee MD 07/27/2017 12:54 AM EDT
[2017-07-27] MEDS ORDERED: FUROSEMIDE 20 MG/2 ML VIAL IV PUSH ONE (01:30)
[2017-07-27] MEDS: IBUPROFEN 200 MG TAB PO SCH ×4 (01:36→20:27)
[2017-07-27] MEDS: oxyCODONE/ACETAMINOPHEN 10 MG/325 MG TAB PO PRN ×4 (02:54→23:55)
[2017-07-27] MEDS: CEFEPIME INJ 2,000 MG in SODIUM CHLORIDE 0.9% INJ 100 ML IV SCH ×3 (02:55→20:26)
[2017-07-27] MEDS ORDERED: PHARMACY ORDERED LAB ONE (03:45)
[2017-07-27] MEDS: VANCOMYCIN 1,000 MG/NS 250 ML IV SCH ×2 (04:33)
[2017-07-27] MEDS: HYDROmorphone HCL PF 0.5 MG/0.5 ML SYRINGE IV PUSH PRN ×3 (05:41→20:37)
[2017-07-27] MEDS: TOPIRAMATE 25 MG TAB PO SCH ×2 (09:37→20:27)
[2017-07-27] MEDS: METHOCARBAMOL 500 MG TAB PO SCH ×3 (09:37→17:33)
[2017-07-27] MEDS: FERROUS SULFATE 325 MG (65 MG ELEMENTAL IRON) TAB PO SCH ×2 (09:37→17:33)
[2017-07-27] MEDS: levETIRAcetam 500 MG TAB PO SCH ×2 (09:37→20:27)
[2017-07-27] MEDS: ASPIRIN 81 MG CHEW TAB CHEW SCH (09:37)
[2017-07-27] MEDS: METOPROLOL TARTRATE 25 MG TAB PO SCH ×2 (09:37→20:27)
[2017-07-27] MEDS: SODIUM CHLORIDE 0.9% FLUSH 10 ML FLUSH IV FLUSH SCH ×2 (09:38→20:37)
[2017-07-27] MEDS: FLUoxetine HCL 20 MG CAP PO SCH (09:38)
--- NOTE | 2017-07-27 12:12 | ECHRPT ---
Indication: POSS SEPSIS, ENDOCARDITIS CONCLUSIONS The transthoracic study is normal by two-dimensional, color flow imaging and Doppler interrogation. Normal left ventricular size. EF @ 45-50% Wall thickness is normal. The left ventricular systolic function is grossly normal on limited imaging. The left atrial size is moderately dilated. Mitral valve mean gradient is 6 mmHg. Cannot R/O vegetation on Prosthetic mitral valve. Mild aortic valve regurgitation. Aortic valve area is 1.4 cm. Aortic valve mean gradient is 5 mmHg. Cannot R/O vegetation on Prosthetic valve. BP: 100 / 55 HR: 65 Rhythm: Sinus MEASUREMENTS (Male / Female) Normal Values Technical Quality:Fair 2D ECHO LV Diastolic Diameter PLAX 5.5 cm 4.2 - 5.9 / 3.9 - 5.3 cm LV Systolic Diameter PLAX 3.5 cm IVS Diastolic Thickness 0.8 cm 0.6 - 1.0 / 0.6 - 0.9 cm LVPW Diastolic Thickness 0.8 cm 0.6 - 1.0 / 0.6 - 0.9 cm LV Relative Wall Thickness 0.3 RV Internal Dim ED PLAX 3.0 cm LVOT Diameter 1.9 cm Aortic Root Diameter 2.6 cm LA Systolic Diameter LX 3.7 cm 3.0 - 4.0 / 2.7 - 3.8 cm DOPPLER AV Peak Velocity 152.0 cm/s AV Peak Gradient 9.2 mmHg AV Mean Gradient 5.0 mmHg AV Velocity Time Integral 33.3 cm LVOT Peak Velocity 72.2 cm/s LVOT Peak Gradient 2.1 mmHg LVOT Velocity Time Integral 16.4 cm AV Area Cont Eq vti 1.4 cm AV Area Cont Eq pk 1.3 cm MV Peak Velocity 218.0 cm/s MV Peak Gradient 19.0 mmHg MV Mean Velocity 103.6 cm/s MV Mean Gradient 6.0 mmHg MV Area PHT 1.9 cm Mitral E Point Velocity 0.0 cm/s TV Peak Velocity 185.0 cm/s FINDINGS LEFT VENTRICLE Normal left ventricular size. Wall thickness is normal. The left ventricular systolic function is grossly normal on limited imaging. RIGHT VENTRICLE Normal right ventricular size and systolic function. LEFT ATRIUM The left atrial size is moderately dilated. RIGHT ATRIUM The right atrial size is normal. MITRAL VALVE Mitral valve mean gradient is 6 mmHg. Cannot R/O vegetation on Prosthetic valve. AORTIC VALVE Mild aortic valve regurgitation. Aortic valve area is 1.4 cm. Aortic valve mean gradient is 5 mmHg. TRICUSPID VALVE Cannot R/O vegetation on Prosthetic valve. VESSELS The inferior vena cava is normal in size. PERICARDIUM No pericardial effusion. Edwin Gurrola MD, FACC, [facility] (Electronically Signed) Final Date:27 July 2017 12:10
[2017-07-27] MEDS: AZITHROMYCIN INJ 500 MG in SODIUM CHLOR 0.9% 250 ML INJ 250 ML IV SCH (15:16)
[2017-07-27] MEDS: WARFARIN SOD 5 MG TAB PO SCH (15:29)
--- NOTE | 2017-07-27 15:38 | HHI.PR ---
Subjective Remarks Mrs. Bazan is a 26-year-old female. She has a past history of infective endocarditis in 2010. Related to her past history of IV drug abuse and the infective endocarditis she has had mitral valve and tricuspid valve replacements. 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 She has seizure disorder and cirrhosis. She comes to the hospital with 3 day complaint of progressive malaise and onset of fever and cough. She also says she has been having some chest pains with deep breathing and headache. Workup shows that she has evidence for left upper lobe pneumonia with possible patchy infiltrates bilaterally. She has a fever, tachycardia, tachypnea, and leukocytosis, meeting criteria for sepsis. No lactic acidosis or evidence of organ failure. No other complaints today. 6-1 Signs of infection are improving in the last 24 hours. Patient has less headache than yesterday. She does complain of nausea. No vomiting. 6-2 Patient appears to be resting comfortably in bed with her boyfriend. She states that she still gets dyspnea when she walks further than the bathroom. She complained to the nurse of abdominal pain and suspects ascites which she has had before. 6-3 COMPLAINS OF ASCITES IN HER ABDOMEN DW RN AND PATIENT WILL ASK INVASIVE RADIOLOGY TO DO PARACENTESIS LARGE VOLUME TOMORROW DUE TO ABDOMEN DISTENTION AM LABS May need infectious disease if cultures come back positive Objective Vitals Vital Signs Date Time Temp Pulse Resp B/P (MAP) Pulse Ox O2 Delivery O2 Flow Rate FiO2 07/27/17 12:00 98.1 62 18 103/53 (70) 98 07/27/17 08:00 97.3 60 18 109/45 (66) 100 07/27/17 06:00 98.1 61 17 95/50 (65) 100 07/27/17 04:00 55 07/27/17 00:00 98.1 63 18 104/51 (68) 100 07/26/17 20:00 98.2 63 18 94/47 (63) 97 07/26/17 16:00 98.1 67 18 94/54 (67) 98 07/26/17 16:00 73 I/O 07/26/17 07/26/17 07/26/17 07/27/17 07/27/17 07/27/17 06:59 14:59 22:59 06:59 14:59 22:59 Intake Total 120 ml 1250 ml 680 ml 340 ml Output Total 650 ml 2 ml Balance -530 ml 1250 ml 680 ml 338 ml Intake Oral 120 ml 480 ml 240 ml IV Total 1250 ml 200 ml 100 ml Output Urine Total 650 ml 2 ml # Voids 6 # Bowel Movements 0 1 0 Result Diagram: 07/26/17 0722 07/26/17 0359 Other Results Laboratory Tests Test 07/25/17 04:57 07/26/17 03:59 07/26/17 07:22 07/27/17 03:15 White Blood Count 7.0 TH/MM3 7.3 TH/MM3 Red Blood Count 3.30 MIL/MM3 3.31 MIL/MM3 Hemoglobin 9.2 GM/DL 9.3 GM/DL Hematocrit 28.5 % 28.7 % Mean Corpuscular Volume 86.3 FL 86.8 FL Mean Corpuscular Hemoglobin 28.0 PG 28.1 PG Mean Corpuscular Hemoglobin Concent 32.4 % 32.4 % Red Cell Distribution Width 14.8 % 15.4 % Platelet Count 348 TH/MM3 364 TH/MM3 Mean Platelet Volume 8.3 FL 8.4 FL Neutrophils (%) (Auto) 40.4 % 38.9 % Lymphocytes (%) (Auto) 41.5 % 40.5 % Monocytes (%) (Auto) 11.4 % 11.9 % Eosinophils (%) (Auto) 5.4 % 7.3 % Basophils (%) (Auto) 1.3 % 1.4 % Neutrophils # (Auto) 2.8 TH/MM3 2.8 TH/MM3 Lymphocytes # (Auto) 2.9 TH/MM3 3.0 TH/MM3 Monocytes # (Auto) 0.8 TH/MM3 0.9 TH/MM3 Eosinophils # (Auto) 0.4 TH/MM3 0.5 TH/MM3 Basophils # (Auto) 0.1 TH/MM3 0.1 TH/MM3 CBC Comment DIFF FINAL DIFF FINAL Differential Comment Blood Urea Nitrogen 17 MG/DL 17 MG/DL Creatinine 0.89 MG/DL 1.01 MG/DL Random Glucose 82 MG/DL 108 MG/DL Total Protein 6.9 GM/DL 6.5 GM/DL Albumin 3.1 GM/DL 3.1 GM/DL Calcium Level 8.6 MG/DL 8.1 MG/DL Alkaline Phosphatase 110 U/L 108 U/L Aspartate Amino Transf (AST/SGOT) 16 U/L 18 U/L Alanine Aminotransferase (ALT/SGPT) 20 U/L 19 U/L Total Bilirubin 1.1 MG/DL 0.7 MG/DL Sodium Level 140 MEQ/L 142 MEQ/L Potassium Level 4.1 MEQ/L 4.1 MEQ/L Chloride Level 108 MEQ/L 111 MEQ/L Carbon Dioxide Level 22.4 MEQ/L 22.6 MEQ/L Anion Gap 10 MEQ/L 8 MEQ/L Estimat Glomerular Filtration Rate 76 ML/MIN 66 ML/MIN Troponin I LESS THAN 0.02 NG/ML Vancomycin Level Trough 8.2 MCG/ML 29.3 MCG/ML Imaging Last Impressions Chest X-Ray 07/26/17 0000 Signed Impressions: CONCLUSION: Cardiomegaly. Mild right pleural effusion with some accompanying atelectasis or consolidation at the right lung base. Head CT 07/24/17 1815 Signed Impressions: CONCLUSION: 1. Stable noncontrast head CT. No acute intracranial abnormality is identified . 2. There is stable right frontoparietal region encephalomalacia. CT Angiography 07/24/17 0000 Signed Impressions: CONCLUSION: 1. There is no evidence for pulmonary embolus. 2. Patchy parenchymal infiltrates in the lungs worse in the left upper lobe wi th a tiny right pleural effusion. Objective Remarks GENERAL: Awake alert and oriented 3 talkative and cooperative SKIN: Warm and dry. HEAD: Atraumatic. Normocephalic. EYES: Pupils equal and round. No scleral icterus. No injection or drainage. Extraocular muscles intact ENT: No nasal bleeding or discharge. Mucous membranes pink and moist. Tongue is midline NECK: Trachea midline. No JVD. Supple CARDIOVASCULAR: Regular rate and rhythm. S1-S2 no S3 or S4 RESPIRATORY: No accessory muscle use. Clear to auscultation. Breath sounds equal bilaterally. GASTROINTESTINAL: Abdomen soft, non-tender, Hepatic and splenic margins not palpable. Abdomen distended and tympanic no SBP type symptoms at this time MUSCULOSKELETAL: Extremities without clubbing, cyanosis, or edema. No obvious deformities. NEUROLOGICAL: Awake and alert. No obvious cranial nerve deficits. Motor grossly within normal limits. Five out of 5 muscle strength in the arms and legs. Normal speech. PSYCHIATRIC: Appropriate mood and affect; insight and judgment normal. Medications and IVs Current Medications Sodium Chloride (NS Flush) 2 ml UNSCH PRN IVF FLUSH AFTER USING IV ACCESS Last administered on 07/24/17at 05:10; Start 07/24/17 at 02:15; Stop 07/24/17 at 05:37 ; Status DC Sodium Chloride 1,000 ml @ 1,000 mls/hr Q1H ONCE IV Last administered on at 02:06; Start 07/24/17 at 02:02; Stop 07/24/17 at 03:01; Status DC Acetaminophen (Tylenol) 650 mg ONCE ONCE PO Last administered on 07/24/17at 02: 13; Start 07/24/17 at 02:15; Stop 07/24/17 at 02:16; Status DC Sodium Chloride 1,000 ml @ 125 mls/hr Q8H IV Last administered on 07/26/17at 02: 05; Start 07/24/17 at 02:30; Stop 07/26/17 at 12:30; Status DC Hydromorphone HCl (Dilaudid Pf Inj) 0.5 mg ONCE ONCE IV PUSH Last administered on 07/24/17at 02:51; Start 07/24/17 at 02:30; Stop 07/24/17 at 02:31 ; Status DC Cefepime HCl 2000 mg/Sodium Chloride 100 ml @ 200 mls/hr ONCE ONCE IV Last administered on 07/24/17at 04:14; Start 07/24/17 at 03:45; Stop 07/24/17 at 04:14 ; Status DC Vancomycin HCl 1000 mg/Sodium Chloride 250 ml @ 250 mls/hr ONCE ONCE IV Last administered on 07/24/17at 05:10; Start 07/24/17 at 03:45; Stop 07/24/17 at 04:44 ; Status DC Iohexol (Omnipaque 350 Inj) 74 ml STK-MED ONCE IVCONTRAST Last administered on 07/24/17at 01:12; Start 07/24/17 at 01:12; Stop 07/24/17 at 04:45; Status DC Pharmacy Profile Note 0 ml @ 0 mls/hr UNSCH OTHER ; Start 07/24/17 at 05:15 Vancomycin HCl 1000 mg/Sodium Chloride 250 ml @ 250 mls/hr Q12H IV ; Start at 15:30; Status UNV Cefepime HCl 2000 mg/Sodium Chloride 100 ml @ 200 mls/hr Q8H IV Last administered on 07/27/17at 11:55; Start 07/24/17 at 12:00 Sodium Chloride (NS Flush) 2 ml UNSCH PRN IV FLUSH FLUSH AFTER USING IV ACCESS ; Start 07/24/17 at 05:15 Sodium Chloride (NS Flush) 2 ml BID IV FLUSH Last administered on 07/27/17 09: 38; Start 07/24/17 at 09:00 Lorazepam (Ativan Inj) 2 mg Q10M PRN IV PUSH SEE LABEL COMMENTS; Start at 05:15 Acetaminophen (Tylenol) 650 mg Q4H PRN PO PAIN SCALE 1 TO 2 Last administered on 07/24/17 08:03; Start 07/24/17 at 05:15 Aspirin (Aspirin Chew) 81 mg DAILY CHEW Last administered on 07/27/17 09:37; Start 07/25/17 at 09:00 Ferrous Sulfate (Ferrous Sulfate) 325 mg BIDPC PO Last administered on 09:37; Start 07/24/17 at 18:00 Fluoxetine HCl (PROzac) 20 mg DAILY PO Last administered on 07/27/17 09:38; Start 07/25/17 at 09:00 Lisinopril (Prinivil) 20 mg DAILY PO ; Start 07/25/17 at 09:00; Stop 07/25/17 at 09:00; Status DC Methocarbamol (Robaxin) 500 mg TID PO Last administered on 07/27/17at 09:37; Start 07/24/17 at 13:00 Metoprolol Tartrate (Lopressor) 12.5 mg BID PO Last administered on 07/27/17 09 :37; Start 07/24/17 at 21:00 Oxycodone/ Acetaminophen (Percocet 10-325 Mg) 1 tab TID PRN PO PAIN; Start at 09:15; Stop 07/24/17 at 09:18; Status DC Topiramate (Topamax) 50 mg BID PO Last administered on 07/27/17 09:37; Start at 21:00 Warfarin Sodium (Coumadin) 5 mg DAILY@1600 PO Last administered on 07/26/17at 16: 34; Start 07/25/17 at 16:00 Oxycodone/ Acetaminophen (Percocet 10-325 Mg) 1 tab Q6H PRN PO Pain 7 to 10 Last administered on 07/27/17at 09:37; Start 07/24/17 at 09:30 Oxycodone/ Acetaminophen (Percocet 5-325 Mg) 1 tab Q6H PRN PO Pain 3 to 6 Last administered on 07/24/17at 16:52; Start 07/24/17 at 09:30 Vancomycin HCl 1250 mg/Sodium Chloride 262.5 ml @ 250 mls/hr Q12H IV Last administered on 07/26/17 04:24; Start 07/24/17 at 15:00; Stop 07/26/17 at 08:56; Status DC Miscellaneous Information ([facility] Ordered Lab Info) SPECIFIC LAB TO BE KAYLEE... ONCE ONCE .XX Last administered on 07/26/17at 02:45; Start 07/26/17 at 02: 45; Stop 07/26/17 at 02:46; Status DC Patient Medication Teaching (Coumadin Booklet) 1 ONCE ONCE OTHER Last administered on 07/24/17at 10:37; Start 07/24/17 at 10:00; Stop 07/24/17 at 10:01 ; Status DC Hydromorphone HCl (Dilaudid Pf Inj) 0.5 mg Q6H PRN IV PUSH Breakthrough Pain Last administered on 07/27/17at 11:55; Start 07/24/17 at 12:30 Ibuprofen (Advil) 200 mg Q6H PO Last administered on 07/27/17at 09:38; Start at 14:00 Azithromycin 500 mg/Sodium Chloride 250 ml @ 250 mls/hr Q24H IV Last administered on 07/26/17at 15:10; Start 07/24/17 at 14:00 Levetriacetam (Keppra) 500 mg Q12HR PO Last administered on 07/27/17 09:37; Start 07/24/17 at 21:00 Lorazepam (Ativan) 1 mg ONCE ONCE PO Last administered on 07/24/17at 22:09; Start 07/24/17 at 21:30; Stop 07/24/17 at 21:31; Status DC Ondansetron HCl (Zofran Odt) 4 mg Q6H PRN PO nausea Last administered on at 05:25; Start 07/25/17 at 02:30 Promethazine HCl (Phenergan) 25 mg Q6H PRN PO Nausea Last administered on at 22:27; Start 07/25/17 at 11:15 Promethazine HCl (Phenergan) 25 mg ONCE ONCE PO Last administered on 07/25/17at 14:17; Start 07/25/17 at 13:00; Stop 07/25/17 at 13:01; Status DC Vancomycin HCl 1000 mg/Sodium Chloride 250 ml @ 250 mls/hr Q8H IV Last administered on 07/27/17at 04:33; Start 07/26/17 at 12:00; Stop 07/27/17 at 08:56; Status DC Miscellaneous Information ([facility] Ordered Lab Info) SPECIFIC LAB TO BE DRAWN:VANCO TROUGH DATE TO... ONCE ONCE .XX Last administered on 07/27/17at 03: 45; Start 07/27/17 at 03:45; Stop 07/27/17 at 03:46; Status DC Furosemide (Lasix Inj) 20 mg ONCE ONCE IV PUSH Last administered on 07/27/17at 01:36; Start 07/27/17 at 01:30; Stop 07/27/17 at 01:31; Status DC A/P Problem List: (1) Sepsis ICD Code: A41.9 - Sepsis, unspecified organism Status: Acute (2) Pleural effusion ICD Code: J90 - Pleural effusion Status: Acute (3) Pneumonia ICD Code: J18.9 - Pneumonia, unspecified organism (4) Community acquired pneumonia ICD Code: J18.9 - Community acquired pneumonia Status: Acute Assessment and Plan 26-year-old female admitted secondary to pneumonia with sepsis Community-acquired pneumonia, sepsis Clinically improving, no longer showing signs of sepsis Continue cefepime, vancomycin, azithromycin Patient is off of oxygen currently 2D echocardiogram pending to screen for vegetations given history Blood cultures show no growth in 2 days Nausea Mostly resolved, continue Zofran and Phenergan Left hemiplegia Chronic, continue supportive care History of cirrhosis and ascites, hep C, SBP Patient complains of abdominal pressure Will get screening ultrasound to investigate for ascites history of bacterial endocarditis status post prosthetic mitral/ tricuspid valves in 2000. 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 Apparently the patient had a redo Valve replacements in 2016 at [facility] Daily PT/INR Continue on Coumadin History of respiratory failure requiring intubation and tracheostomy History of renal failure, seizures, intracranial abscess HX OF VASCULAR HEADACHES Monitor for changes DVT prophylaxis SCDs Discharge Planning Not cleared for discharge Kj Burton DO Jul 27, 2017 15:38
[2017-07-27 17:06] LABS: INTERNATIONAL NORMALIZED RATIO 1.2 RATIO; PROTHROMBIN TIME - PATIENT 12.3 SEC (9.8-11.6)
[2017-07-28] VITALS (8 sets, daily range): BP systolic 96–100; BP diastolic 49–65; PULSE 59–62; RESP 16–20; TEMP 97.8–98.2; O2SAT 92–100
[2017-07-28] MEDS: IBUPROFEN 200 MG TAB PO SCH ×4 (02:00→21:17)
[2017-07-28] MEDS: CEFEPIME INJ 2,000 MG in SODIUM CHLORIDE 0.9% INJ 100 ML IV SCH ×3 (02:53→21:17)
[2017-07-28] MEDS: HYDROmorphone HCL PF 0.5 MG/0.5 ML SYRINGE IV PUSH PRN ×4 (02:54→21:16)
[2017-07-28] MEDS: oxyCODONE/ACETAMINOPHEN 10 MG/325 MG TAB PO PRN ×4 (06:18→23:45)
[2017-07-28 08:34] LABS: BASOPHIL # 0.1 TH/MM3 (0-0.2); EOSINOPHIL # 0.5 TH/MM3 (0-0.4); EOSINOPHIL % 7.3 % (0.0-4.0); HEMATOCRIT 27.9 % (35.0-46.0); LYMPHOCYTE # 2.7 TH/MM3 (1.0-4.8); MEAN CELL VOLUME 87.7 FL (80.0-100.0); MEAN CORPUSCULAR HEMOGLOBIN 28.2 PG (27.0-34.0); MEAN CORPUSCULAR HGB CONC 32.1 % (32.0-36.0); MONO % 10.8 % (0.0-8.0); MONOCYTE # 0.8 TH/MM3 (0-0.9); NEUT % 41.9 % (16.0-70.0); PLATELET COUNT 382 TH/MM3 (150-450); RED BLOOD COUNT 3.18 MIL/MM3 (4.00-5.30); RED CELL DISTRIBUTION WIDTH 14.9 % (11.6-17.2); WHITE BLOOD COUNT 7.2 TH/MM3 (4.0-11.0)
[2017-07-28 08:50] LABS: INTERNATIONAL NORMALIZED RATIO 1.3 RATIO
[2017-07-28 08:56] LABS: ALBUMIN 3.2 GM/DL (3.4-5.0); AST (GOT) 15 U/L (15-37); BICARBONATE 23.1 MEQ/L (21.0-32.0); BLOOD UREA NITROGEN 14 MG/DL (7-18); CALCIUM 8.5 MG/DL (8.5-10.1); CHLORIDE 109 MEQ/L (98-107); CREATININE 0.86 MG/DL (0.50-1.00); GLOMERULAR FILTRATION RATE 79 ML/MIN (>89); GLUCOSE,RANDOM 78 MG/DL (74-106); MAGNESIUM 2.2 MG/DL (1.5-2.5); SODIUM (NA) 141 MEQ/L (136-145)
[2017-07-28] MEDS: SODIUM CHLORIDE 0.9% FLUSH 10 ML FLUSH IV FLUSH SCH ×2 (09:00→21:18)
[2017-07-28 09:06] LABS: ALKALINE PHOSPHATASE 107 U/L (45-117); ALT (GPT) 18 U/L (10-53); FREE T4 1.02 NG/DL (0.76-1.46); PHOSPHORUS 3.7 MG/DL (2.5-4.9); RANDOM VANCOMYCIN 11.6 COMMENT; TOTAL BILIRUBIN ADULT 0.5 MG/DL (0.2-1.0); TOTAL PROTEIN 6.6 GM/DL (6.4-8.2)
[2017-07-28] MEDS: METOPROLOL TARTRATE 25 MG TAB PO SCH ×2 (09:22→21:18)
[2017-07-28] MEDS: levETIRAcetam 500 MG TAB PO SCH ×2 (09:22→21:17)
[2017-07-28] MEDS: ASPIRIN 81 MG CHEW TAB CHEW SCH (09:23)
[2017-07-28] MEDS: FERROUS SULFATE 325 MG (65 MG ELEMENTAL IRON) TAB PO SCH ×2 (09:23→17:19)
[2017-07-28] MEDS: TOPIRAMATE 25 MG TAB PO SCH ×2 (09:23→21:16)
[2017-07-28] MEDS: METHOCARBAMOL 500 MG TAB PO SCH ×3 (09:23→17:19)
[2017-07-28] MEDS: FLUoxetine HCL 20 MG CAP PO SCH (09:24)
[2017-07-28] MEDS: FUROSEMIDE 20 MG/2 ML VIAL IV PUSH SCH (09:25)
--- NOTE | 2017-07-28 11:37 | HHI.PR ---
Subjective Remarks Mrs. Bazan is a 26-year-old female. She has a past history of infective endocarditis in 2010. Related to her past history of IV drug abuse and the infective endocarditis she has had mitral valve and tricuspid valve replacements. 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 She has seizure disorder and cirrhosis. She comes to the hospital with 3 day complaint of progressive malaise and onset of fever and cough. She also says she has been having some chest pains with deep breathing and headache. Workup shows that she has evidence for left upper lobe pneumonia with possible patchy infiltrates bilaterally. She has a fever, tachycardia, tachypnea, and leukocytosis, meeting criteria for sepsis. No lactic acidosis or evidence of organ failure. No other complaints today. 6-1 Signs of infection are improving in the last 24 hours. Patient has less headache than yesterday. She does complain of nausea. No vomiting. 6-2 Patient appears to be resting comfortably in bed with her boyfriend. She states that she still gets dyspnea when she walks further than the bathroom. She complained to the nurse of abdominal pain and suspects ascites which she has had before. 6-3 COMPLAINS OF ASCITES IN HER ABDOMEN DW RN AND PATIENT WILL ASK INVASIVE RADIOLOGY TO DO PARACENTESIS LARGE VOLUME TOMORROW DUE TO ABDOMEN DISTENTION AM LABS May need infectious disease if cultures come back positive 6-4 HOPEFULLY TO HAVE PARACENTESIS TODAY LABS IN COMPUTER AWAIT IR TO DO PARACENTESIS DW RN AND PT AND CM CULTURES NO GROWTH SO FAR CONTINUE ANTIBIOTICS Objective Vitals Vital Signs Date Time Temp Pulse Resp B/P (MAP) Pulse Ox O2 Delivery O2 Flow Rate FiO2 07/28/17 08:05 97.9 60 17 100/65 (77) 98 07/28/17 06:20 97.8 61 18 98/49 (65) 92 07/28/17 01:24 60 07/28/17 00:00 98.2 60 20 99/49 (66) 99 07/27/17 20:40 62 07/27/17 20:00 97.6 67 20 104/49 (67) 95 07/27/17 16:00 98.0 63 18 93/51 (65) 100 07/27/17 15:00 66 07/27/17 12:30 49 07/27/17 12:00 98.1 62 18 103/53 (70) 98 I/O 07/27/17 07/27/17 07/27/17 07/28/17 07/28/17 07/28/17 07:00 15:00 23:00 07:00 15:00 23:00 Intake Total 340 ml 580 ml 100 ml Output Total 2 ml Balance 338 ml 580 ml 100 ml Intake Oral 240 ml 480 ml IV Total 100 ml 100 ml 100 ml Output Urine Total 2 ml # Voids 4 # Bowel Movements 0 Result Diagram: 07/28/17 0646 07/28/17 0646 Other Results Laboratory Tests Test 07/26/17 03:59 07/26/17 07:22 07/27/17 03:15 07/27/17 16:10 Blood Urea Nitrogen 17 MG/DL Creatinine 1.01 MG/DL Random Glucose 108 MG/DL Total Protein 6.5 GM/DL Albumin 3.1 GM/DL Calcium Level 8.1 MG/DL Alkaline Phosphatase 108 U/L Aspartate Amino Transf (AST/SGOT) 18 U/L Alanine Aminotransferase (ALT/SGPT) 19 U/L Total Bilirubin 0.7 MG/DL Sodium Level 142 MEQ/L Potassium Level 4.1 MEQ/L Chloride Level 111 MEQ/L Carbon Dioxide Level 22.6 MEQ/L Anion Gap 8 MEQ/L Estimat Glomerular Filtration Rate 66 ML/MIN Vancomycin Level Trough 8.2 MCG/ML 29.3 MCG/ML White Blood Count 7.3 TH/MM3 Red Blood Count 3.31 MIL/MM3 Hemoglobin 9.3 GM/DL Hematocrit 28.7 % Mean Corpuscular Volume 86.8 FL Mean Corpuscular Hemoglobin 28.1 PG Mean Corpuscular Hemoglobin Concent 32.4 % Red Cell Distribution Width 15.4 % Platelet Count 364 TH/MM3 Mean Platelet Volume 8.4 FL Neutrophils (%) (Auto) 38.9 % Lymphocytes (%) (Auto) 40.5 % Monocytes (%) (Auto) 11.9 % Eosinophils (%) (Auto) 7.3 % Basophils (%) (Auto) 1.4 % Neutrophils # (Auto) 2.8 TH/MM3 Lymphocytes # (Auto) 3.0 TH/MM3 Monocytes # (Auto) 0.9 TH/MM3 Eosinophils # (Auto) 0.5 TH/MM3 Basophils # (Auto) 0.1 TH/MM3 CBC Comment DIFF FINAL Differential Comment Prothrombin Time 12.3 SEC Prothromb Time International Ratio 1.2 RATIO Test 07/28/17 06:46 White Blood Count 7.2 TH/MM3 Red Blood Count 3.18 MIL/MM3 Hemoglobin 9.0 GM/DL Hematocrit 27.9 % Mean Corpuscular Volume 87.7 FL Mean Corpuscular Hemoglobin 28.2 PG Mean Corpuscular Hemoglobin Concent 32.1 % Red Cell Distribution Width 14.9 % Platelet Count 382 TH/MM3 Mean Platelet Volume 8.0 FL Neutrophils (%) (Auto) 41.9 % Lymphocytes (%) (Auto) 38.0 % Monocytes (%) (Auto) 10.8 % Eosinophils (%) (Auto) 7.3 % Basophils (%) (Auto) 2.0 % Neutrophils # (Auto) 3.0 TH/MM3 Lymphocytes # (Auto) 2.7 TH/MM3 Monocytes # (Auto) 0.8 TH/MM3 Eosinophils # (Auto) 0.5 TH/MM3 Basophils # (Auto) 0.1 TH/MM3 CBC Comment DIFF FINAL Differential Comment Prothrombin Time 13.0 SEC Prothromb Time International Ratio 1.3 RATIO Blood Urea Nitrogen 14 MG/DL Creatinine 0.86 MG/DL Random Glucose 78 MG/DL Total Protein 6.6 GM/DL Albumin 3.2 GM/DL Calcium Level 8.5 MG/DL Phosphorus Level 3.7 MG/DL Magnesium Level 2.2 MG/DL Alkaline Phosphatase 107 U/L Aspartate Amino Transf (AST/SGOT) 15 U/L Alanine Aminotransferase (ALT/SGPT) 18 U/L Total Bilirubin 0.5 MG/DL Sodium Level 141 MEQ/L Potassium Level 4.3 MEQ/L Chloride Level 109 MEQ/L Carbon Dioxide Level 23.1 MEQ/L Anion Gap 9 MEQ/L Estimat Glomerular Filtration Rate 79 ML/MIN Free Thyroxine 1.02 NG/DL Thyroid Stimulating Hormone 3rd Gen 3.020 uIU/ML Random Vancomycin Level 11.6 COMMENT Imaging Last Impressions Chest X-Ray 07/26/17 0000 Signed Impressions: CONCLUSION: Cardiomegaly. Mild right pleural effusion with some accompanying atelectasis or consolidation at the right lung base. Head CT 07/24/17 1815 Signed Impressions: CONCLUSION: 1. Stable noncontrast head CT. No acute intracranial abnormality is identified . 2. There is stable right frontoparietal region encephalomalacia. CT Angiography 07/24/17 0000 Signed Impressions: CONCLUSION: 1. There is no evidence for pulmonary embolus. 2. Patchy parenchymal infiltrates in the lungs worse in the left upper lobe wi th a tiny right pleural effusion. Objective Remarks GENERAL: Awake alert and oriented 3 talkative and cooperative SKIN: Warm and dry. HEAD: Atraumatic. Normocephalic. EYES: Pupils equal and round. No scleral icterus. No injection or drainage. Extraocular muscles intact ENT: No nasal bleeding or discharge. Mucous membranes pink and moist. Tongue is midline NECK: Trachea midline. No JVD. Supple CARDIOVASCULAR: Regular rate and rhythm. S1-S2 no S3 or S4 RESPIRATORY: No accessory muscle use. Clear to auscultation. Breath sounds equal bilaterally. GASTROINTESTINAL: Abdomen soft, non-tender, Hepatic and splenic margins not palpable. Abdomen distended and tympanic no SBP type symptoms at this time MUSCULOSKELETAL: Extremities without clubbing, cyanosis, or edema. No obvious deformities. NEUROLOGICAL: Awake and alert. No obvious cranial nerve deficits. Motor grossly within normal limits. Five out of 5 muscle strength in the arms and legs. Normal speech. PSYCHIATRIC: Appropriate mood and affect; insight and judgment normal. Medications and IVs Current Medications Sodium Chloride (NS Flush) 2 ml UNSCH PRN IVF FLUSH AFTER USING IV ACCESS Last administered on 07/24/17at 05:10; Start 07/24/17 at 02:15; Stop 07/24/17 at 05:37 ; Status DC Sodium Chloride 1,000 ml @ 1,000 mls/hr Q1H ONCE IV Last administered on at 02:06; Start 07/24/17 at 02:02; Stop 07/24/17 at 03:01; Status DC Acetaminophen (Tylenol) 650 mg ONCE ONCE PO Last administered on 07/24/17at 02: 13; Start 07/24/17 at 02:15; Stop 07/24/17 at 02:16; Status DC Sodium Chloride 1,000 ml @ 125 mls/hr Q8H IV Last administered on 07/26/17at 02: 05; Start 07/24/17 at 02:30; Stop 07/26/17 at 12:30; Status DC Hydromorphone HCl (Dilaudid Pf Inj) 0.5 mg ONCE ONCE IV PUSH Last administered on 07/24/17at 02:51; Start 07/24/17 at 02:30; Stop 07/24/17 at 02:31 ; Status DC Cefepime HCl 2000 mg/Sodium Chloride 100 ml @ 200 mls/hr ONCE ONCE IV Last administered on 07/24/17at 04:14; Start 07/24/17 at 03:45; Stop 07/24/17 at 04:14 ; Status DC Vancomycin HCl 1000 mg/Sodium Chloride 250 ml @ 250 mls/hr ONCE ONCE IV Last administered on 07/24/17at 05:10; Start 07/24/17 at 03:45; Stop 07/24/17 at 04:44 ; Status DC Iohexol (Omnipaque 350 Inj) 74 ml STK-MED ONCE IVCONTRAST Last administered on 07/24/17at 01:12; Start 07/24/17 at 01:12; Stop 07/24/17 at 04:45; Status DC Pharmacy Profile Note 0 ml @ 0 mls/hr UNSCH OTHER ; Start 07/24/17 at 05:15 Vancomycin HCl 1000 mg/Sodium Chloride 250 ml @ 250 mls/hr Q12H IV ; Start at 15:30; Status UNV Cefepime HCl 2000 mg/Sodium Chloride 100 ml @ 200 mls/hr Q8H IV Last administered on 07/28/17at 02:53; Start 07/24/17 at 12:00 Sodium Chloride (NS Flush) 2 ml UNSCH PRN IV FLUSH FLUSH AFTER USING IV ACCESS ; Start 07/24/17 at 05:15 Sodium Chloride (NS Flush) 2 ml BID IV FLUSH Last administered on 07/28/17at 09: 00; Start 07/24/17 at 09:00 Lorazepam (Ativan Inj) 2 mg Q10M PRN IV PUSH SEE LABEL COMMENTS; Start at 05:15 Acetaminophen (Tylenol) 650 mg Q4H PRN PO PAIN SCALE 1 TO 2 Last administered on 07/24/17at 08:03; Start 07/24/17 at 05:15 Aspirin (Aspirin Chew) 81 mg DAILY CHEW Last administered on 07/28/17at 09:23; Start 07/25/17 at 09:00 Ferrous Sulfate (Ferrous Sulfate) 325 mg BIDPC PO Last administered on at 09:23; Start 07/24/17 at 18:00 Fluoxetine HCl (PROzac) 20 mg DAILY PO Last administered on 07/28/17at 09:24; Start 07/25/17 at 09:00 Lisinopril (Prinivil) 20 mg DAILY PO ; Start 07/25/17 at 09:00; Stop 07/25/17 at 09:00; Status DC Methocarbamol (Robaxin) 500 mg TID PO Last administered on 07/28/17at 09:23; Start 07/24/17 at 13:00 Metoprolol Tartrate (Lopressor) 12.5 mg BID PO Last administered on 07/28/17at 09 :22; Start 07/24/17 at 21:00 Oxycodone/ Acetaminophen (Percocet 10-325 Mg) 1 tab TID PRN PO PAIN; Start at 09:15; Stop 07/24/17 at 09:18; Status DC Topiramate (Topamax) 50 mg BID PO Last administered on 07/28/17at 09:23; Start at 21:00 Warfarin Sodium (Coumadin) 5 mg DAILY@1600 PO Last administered on 07/27/17at 15: 29; Start 07/25/17 at 16:00; Status Future Hold Oxycodone/ Acetaminophen (Percocet 10-325 Mg) 1 tab Q6H PRN PO Pain 7 to 10 Last administered on 07/28/17at 06:18; Start 07/24/17 at 09:30 Oxycodone/ Acetaminophen (Percocet 5-325 Mg) 1 tab Q6H PRN PO Pain 3 to 6 Last administered on 07/24/17at 16:52; Start 07/24/17 at 09:30 Vancomycin HCl 1250 mg/Sodium Chloride 262.5 ml @ 250 mls/hr Q12H IV Last administered on 07/26/17at 04:24; Start 07/24/17 at 15:00; Stop 07/26/17 at 08:56; Status DC Miscellaneous Information ([facility] [place] Info) SPECIFIC LAB TO BE KAYLEE... ONCE ONCE .XX Last administered on 07/26/17at 02:45; Start 07/26/17 at 02: 45; Stop 07/26/17 at 02:46; Status DC Patient Medication Teaching (Coumadin Booklet) 1 ONCE ONCE OTHER Last administered on 07/24/17 10:37; Start 07/24/17 at 10:00; Stop 07/24/17 at 10:01 ; Status DC Hydromorphone HCl (Dilaudid Pf Inj) 0.5 mg Q6H PRN IV PUSH Breakthrough Pain Last administered on 07/28/17 09:44; Start 07/24/17 at 12:30 Ibuprofen (Advil) 200 mg Q6H PO Last administered on 07/28/17 09:24; Start at 14:00 Azithromycin 500 mg/Sodium Chloride 250 ml @ 250 mls/hr Q24H IV Last administered on 07/27/17 15:16; Start 07/24/17 at 14:00 Levetriacetam (Keppra) 500 mg Q12HR PO Last administered on 07/28/17 09:22; Start 07/24/17 at 21:00 Lorazepam (Ativan) 1 mg ONCE ONCE PO Last administered on 07/24/17 22:09; Start 07/24/17 at 21:30; Stop 07/24/17 at 21:31; Status DC Ondansetron HCl (Zofran Odt) 4 mg Q6H PRN PO nausea Last administered on 05:25; Start 07/25/17 at 02:30 Promethazine HCl (Phenergan) 25 mg Q6H PRN PO Nausea Last administered on 22:27; Start 07/25/17 at 11:15 Promethazine HCl (Phenergan) 25 mg ONCE ONCE PO Last administered on 07/25/17 14:17; Start 07/25/17 at 13:00; Stop 07/25/17 at 13:01; Status DC Vancomycin HCl 1000 mg/Sodium Chloride 250 ml @ 250 mls/hr Q8H IV Last administered on 07/27/17 04:33; Start 07/26/17 at 12:00; Stop 07/27/17 at 08:56; Status DC Miscellaneous Information ([facility] Ordered Lab Info) SPECIFIC LAB TO BE DRAWN:VANCO TROUGH DATE TO... ONCE ONCE .XX Last administered on 07/27/17 03: 45; Start 07/27/17 at 03:45; Stop 07/27/17 at 03:46; Status DC Furosemide (Lasix Inj) 20 mg ONCE ONCE IV PUSH Last administered on 07/27/17at 01:36; Start 07/27/17 at 01:30; Stop 07/27/17 at 01:31; Status DC Furosemide (Lasix Inj) 20 mg DAILY IV PUSH Last administered on 07/28/17at 09:25 ; Start 07/28/17 at 09:00 Vancomycin HCl 1250 mg/Sodium Chloride 262.5 ml @ 262.5 mls/ hr ONCE ONCE IV ; Start 07/28/17 at 13:00; Stop 07/28/17 at 13:59 A/P Problem List: (1) Sepsis ICD Code: A41.9 - Sepsis, unspecified organism Status: Acute (2) Pleural effusion ICD Code: J90 - Pleural effusion Status: Acute (3) Pneumonia ICD Code: J18.9 - Pneumonia, unspecified organism (4) Community acquired pneumonia ICD Code: J18.9 - Community acquired pneumonia Status: Acute Assessment and Plan 26-year-old female admitted secondary to pneumonia with sepsis Community-acquired pneumonia, sepsis Clinically improving, no longer showing signs of sepsis Continue cefepime, vancomycin, azithromycin Patient is off of oxygen currently 2D echocardiogram pending to screen for vegetations given history Blood cultures show no growth in 2 days Nausea Mostly resolved, continue Zofran and Phenergan Left hemiplegia Chronic, continue supportive care History of cirrhosis and ascites, hep C, SBP Patient complains of abdominal pressure Will get screening ultrasound to investigate for ascites HOPEFULLY FOR PARACENTESIS TODAY 6-4 history of bacterial endocarditis status post prosthetic mitral/ tricuspid valves in 2000. 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 Apparently the patient had a redo Valve replacements in 2015 at [facility] Daily PT/INR Continue on Coumadin History of respiratory failure requiring intubation and tracheostomy History of renal failure, seizures, intracranial abscess HX OF VASCULAR HEADACHES Monitor for changes DVT prophylaxis SCDs Discharge Planning Not cleared for discharge Kj Burton DO Jul 28, 2017 11:37
--- NOTE | 2017-07-28 12:48 | RADRPT ---
EXAM DATE: 07/26/2017 2:53 PM EDT AGE/SEX: 26 years / Female INDICATIONS: Evaluate for ascites. CLINICAL DATA: This is the patient's subsequent encounter. Patient reports that signs and symptoms h ave been present for 1 day and indicates a pain score of 8/10. MEDICAL/SURGICAL HISTORY: Hepatitis C. Seizures. Cirrhosis with ascites. Renal failure. Spontaneo us bacterial peritonitis. Intracranial abscess. section. Cholecystectomy. Splenectomy. Hi story of bacterial endocarditis status post prostheticmitral/ tricuspid valves in 2000. Liver Biopsy . Tracheostomy. Multiple Paracentesis [place] [facility] [place] [facility] [place]. . FINDINGS: There is a small volume of free peritoneal fluid identified in all 4 quadrants examined and in the mi dline abdomen and pelvis. The volume does not appear sufficient to warrant paracentesis for therapeut ic reasons, however sampling could be performed for diagnostic reasons if indicated. CONCLUSION: Small volume of diffuse peritoneal fluid Electronically signed by: Alex Lanier MD 07/28/2017 12:46 PM EDT
[2017-07-28] MEDS ORDERED: VANCOMYCIN INJ 1,250 MG in SODIUM CHLOR 0.9% 250 ML INJ 250 ML IV ONE (13:00)
[2017-07-28] MEDS: AZITHROMYCIN INJ 500 MG in SODIUM CHLOR 0.9% 250 ML INJ 250 ML IV SCH (14:51)
[2017-07-28 16:50] LABS: HEMATOCRIT 29.9 % (35.0-46.0); HEMOGLOBIN 9.5 GM/DL (11.6-15.3); MEAN CORPUSCULAR HEMOGLOBIN 27.8 PG (27.0-34.0); MEAN CORPUSCULAR HGB CONC 31.9 % (32.0-36.0); MEAN PLATELET VOLUME 8.1 FL (7.0-11.0); PLATELET COUNT 479 TH/MM3 (150-450); RED BLOOD COUNT 3.43 MIL/MM3 (4.00-5.30); RED CELL DISTRIBUTION WIDTH 15.3 % (11.6-17.2); WHITE BLOOD COUNT 8.1 TH/MM3 (4.0-11.0)
[2017-07-28 16:57] LABS: INTERNATIONAL NORMALIZED RATIO 1.3 RATIO; PROTHROMBIN TIME - PATIENT 13.4 SEC (9.8-11.6)
[2017-07-28 17:11] LABS: TOTAL PROTEIN 7.7 GM/DL (6.4-8.2)
[2017-07-28 18:55] LABS: HEMOGLOBIN A1C 5.2 % (4.3-6.0)
[2017-07-29] VITALS (8 sets, daily range): BP systolic 90–101; BP diastolic 46–59; PULSE 60–69; RESP 14–20; TEMP 97.6–98.4; O2SAT 95–100
[2017-07-29] MEDS: IBUPROFEN 200 MG TAB PO SCH ×4 (03:20→20:05)
[2017-07-29] MEDS: CEFEPIME INJ 2,000 MG in SODIUM CHLORIDE 0.9% INJ 100 ML IV SCH ×3 (03:20→20:01)
[2017-07-29] MEDS: HYDROmorphone HCL PF 0.5 MG/0.5 ML SYRINGE IV PUSH PRN ×4 (03:21→21:02)
[2017-07-29] MEDS: oxyCODONE/ACETAMINOPHEN 10 MG/325 MG TAB PO PRN ×3 (05:54→18:21)
--- NOTE | 2017-07-29 07:41 | RADRPT ---
EXAM DATE: 07/28/2017 4:35 PM EDT AGE/SEX: 26 years / Female INDICATIONS: Ascites. CLINICAL DATA: This is the patient's subsequent encounter. Patient reports that signs and symptoms h ave been present for 1 week and indicates a pain score of 4/10. MEDICAL/SURGICAL HISTORY: Seizures. Brain hematoma. Tuberculosis. Syncope. GERD. PID. HEP C. Ascites. Ovarian torsion. Appendectomy. Cholecystectomy. . Back surgery. [place] [facility] [place] - LOWER LIMITED, 07/26/2017. . [facility]. Ultrasound Abdo men. 2015-12-08 FINDINGS: Ultrasound imaging was performed prior to a planned paracentesis. Only a very small volume of free fl uid is identified in the right lower quadrant, not enough for safe paracentesis. Additional small vol ume of fluid is present in the deep pelvis. CONCLUSION: There is only a very small volume of free fluid present within the abdomen and pelvis, not enough for safe paracentesis. Additionally, the fluid volume has decreased compared to the study from 2 days ag o. Electronically signed by: Alex Brush MD 07/29/2017 7:40 AM EDT
[2017-07-29 07:59] LABS: AUTOMATED NEUTROPHIL # 4.8 TH/MM3 (1.8-7.7); BASOPHIL # 0.1 TH/MM3 (0-0.2); BASOPHIL % 1.3 % (0.0-2.0); EOSINOPHIL # 0.6 TH/MM3 (0-0.4); EOSINOPHIL % 5.9 % (0.0-4.0); HEMATOCRIT 28.8 % (35.0-46.0); HEMOGLOBIN 9.3 GM/DL (11.6-15.3); LYMPH % 34.2 % (9.0-44.0); LYMPHOCYTE # 3.3 TH/MM3 (1.0-4.8); MEAN CORPUSCULAR HEMOGLOBIN 28.1 PG (27.0-34.0); MEAN CORPUSCULAR HGB CONC 32.4 % (32.0-36.0); MONO % 9.9 % (0.0-8.0); NEUT % 48.7 % (16.0-70.0); PLATELET COUNT 362 TH/MM3 (150-450); RED BLOOD COUNT 3.31 MIL/MM3 (4.00-5.30); RED CELL DISTRIBUTION WIDTH 15.1 % (11.6-17.2); WHITE BLOOD COUNT 9.8 TH/MM3 (4.0-11.0)
[2017-07-29 08:08] LABS: INTERNATIONAL NORMALIZED RATIO 1.4 RATIO
[2017-07-29 08:19] LABS: ALT (GPT) 19 U/L (10-53); PHOSPHORUS 3.5 MG/DL (2.5-4.9)
[2017-07-29 08:21] LABS: ALKALINE PHOSPHATASE 107 U/L (45-117); RANDOM VANCOMYCIN 12.2 COMMENT; TOTAL BILIRUBIN ADULT 0.5 MG/DL (0.2-1.0); TOTAL PROTEIN 6.8 GM/DL (6.4-8.2)
[2017-07-29 08:26] LABS: ALBUMIN 3.1 GM/DL (3.4-5.0); AST (GOT) 21 U/L (15-37); BICARBONATE 22.1 MEQ/L (21.0-32.0); BLOOD UREA NITROGEN 14 MG/DL (7-18); CALCIUM 8.6 MG/DL (8.5-10.1); CHLORIDE 107 MEQ/L (98-107); CREATININE 0.86 MG/DL (0.50-1.00); GLOMERULAR FILTRATION RATE 79 ML/MIN (>89); GLUCOSE,RANDOM 88 MG/DL (74-106); MAGNESIUM 2.3 MG/DL (1.5-2.5); SODIUM (NA) 139 MEQ/L (136-145)
[2017-07-29] MEDS: FUROSEMIDE 20 MG/2 ML VIAL IV PUSH SCH (08:50)
[2017-07-29] MEDS: METOPROLOL TARTRATE 25 MG TAB PO SCH ×2 (08:50→20:05)
[2017-07-29] MEDS: SODIUM CHLORIDE 0.9% FLUSH 10 ML FLUSH IV FLUSH SCH ×2 (08:51→20:06)
[2017-07-29] MEDS: ASPIRIN 81 MG CHEW TAB CHEW SCH (08:51)
[2017-07-29] MEDS: levETIRAcetam 500 MG TAB PO SCH ×2 (08:51→20:06)
[2017-07-29] MEDS: METHOCARBAMOL 500 MG TAB PO SCH ×3 (08:51→17:56)
[2017-07-29] MEDS: TOPIRAMATE 25 MG TAB PO SCH ×2 (08:51→20:05)
[2017-07-29] MEDS: FERROUS SULFATE 325 MG (65 MG ELEMENTAL IRON) TAB PO SCH ×2 (08:51→17:56)
[2017-07-29] MEDS: FLUoxetine HCL 20 MG CAP PO SCH (08:51)
--- NOTE | 2017-07-29 09:17 | HHI.PR ---
Subjective Remarks Follow-up for community-acquired pneumonia, sepsis, ascites, mechanical valves with subtherapeutic INR. Patient reports continued shortness of breath, minimally improved. States she became dyspneic just ambulating to the restroom. She reports a nonproductive cough. Denies any chest pain. Denies any fevers or chills. She feels anxious and is requesting her Ativan 1 mg po bid to be restarted. She reports she has 2 mechanical valves and is supposed to be on Coumadin with INR greater than 2.5. Discussed with RN, Coumadin was held yesterday for paracentesis, however there was not enough ascites for safe paracentesis. Objective Vitals Vital Signs Date Time Temp Pulse Resp B/P (MAP) Pulse Ox O2 Delivery O2 Flow Rate FiO2 07/29/17 08:00 98.0 60 20 93/53 (66) 98 07/29/17 04:00 60 07/29/17 03:53 Nasal Cannula 2.00 07/29/17 03:52 98.4 60 16 101/55 (70) 100 07/29/17 00:00 63 07/29/17 00:00 98.2 69 16 101/55 (70) 95 07/29/17 00:00 Nasal Cannula 2.00 07/28/17 20:00 60 07/28/17 20:00 Nasal Cannula 2.00 07/28/17 20:00 97.9 60 16 98/53 (68) 100 07/28/17 17:31 60 07/28/17 16:04 98.0 62 16 98/59 (72) 100 07/28/17 12:04 97.8 59 16 96/53 (67) 100 I/O 07/28/17 07/28/17 07/28/17 07/29/17 07/29/17 07/29/17 07:00 15:00 23:00 07:00 15:00 23:00 Intake Total 100 ml 700 ml 580 ml Output Total 500 ml Balance 100 ml 700 ml 80 ml Intake Oral 600 ml 480 ml IV Total 100 ml 100 ml 100 ml Output Urine Total 500 ml # Voids 3 # Bowel Movements 1 0 Result Diagram: 07/29/17 0735 07/29/17 0735 Imaging Last Impressions Abdomen Ultrasound 07/28/17 0000 Signed Impressions: CONCLUSION: There is only a very small volume of free fluid present within the abdomen and pelvis, not enough for safe paracentesis. Additionally, the fluid volume has de creased compared to the study from 2 days ago. Chest X-Ray 07/26/17 0000 Signed Impressions: CONCLUSION: Cardiomegaly. Mild right pleural effusion with some accompanying atelectasis or consolidation at the right lung base. Head CT 07/24/17 1815 Signed Impressions: CONCLUSION: 1. Stable noncontrast head CT. No acute intracranial abnormality is identified . 2. There is stable right frontoparietal region encephalomalacia. CT Angiography 07/24/17 0000 Signed Impressions: CONCLUSION: 1. There is no evidence for pulmonary embolus. 2. Patchy parenchymal infiltrates in the lungs worse in the left upper lobe wi th a tiny right pleural effusion. Objective Remarks GENERAL: Well-nourished, well-developed young female patient in [facility]. SKIN: Warm and dry. No rash. HEENT: Normocephalic. Atraumatic. Pupils equal and round. Mucous membranes pink and moist. CARDIOVASCULAR: Regular rate and rhythm. Mechanical click noted. RESPIRATORY: No accessory muscle use. Breath sounds diminished at right base, otherwise clear to auscultation. GASTROINTESTINAL: Abdomen soft, non-tender, nondistended. Mild lower abdominal ascites. Abdomen nonerythematous. Normoactive bowel sounds x4. MUSCULOSKELETAL: No obvious deformities. Extremities without clubbing, cyanosis , or edema. Bilateral calves nontender to palpation. NEUROLOGICAL: Awake and alert. No obvious cranial nerve deficits. 4/5 strength LUE. Moving all extremities spontaneously. Normal speech. PSYCHIATRIC: Appropriate mood and affect; insight and judgment normal. Medications and IVs Current Medications Medications (Trade) Dose Ordered Sig/Lele Route Start Time Stop Time Status Last Admin Pharmacy Profile Note 0 ml @ 0 mls/hr UNSCH OTHER 07/24/17 05:15 Cefepime HCl 2000 mg/Sodium Chloride 100 ml @ 200 mls/hr Q8H IV 07/24/17 12:00 07/29/17 03:20 (NS Flush) 2 ml UNSCH PRN IV FLUSH 07/24/17 05:15 (NS Flush) 2 ml BID IV FLUSH 07/24/17 09:00 07/29/17 08:51 (Ativan Inj) 2 mg Q10M PRN IV PUSH 07/24/17 05:15 (Tylenol) 650 mg Q4H PRN PO 07/24/17 05:15 07/24/17 08:03 (Aspirin Chew) 81 mg DAILY CHEW 07/25/17 09:00 07/29/17 08:51 (Ferrous Sulfate) 325 mg BIDPC PO 07/24/17 18:00 07/29/17 08:51 (PROzac) 20 mg DAILY PO 07/25/17 09:00 07/29/17 08:51 (Robaxin) 500 mg TID PO 07/24/17 13:00 07/29/17 08:51 (Lopressor) 12.5 mg BID PO 07/24/17 21:00 07/29/17 08:50 (Topamax) 50 mg BID PO 07/24/17 21:00 07/29/17 08:51 (Coumadin) 5 mg DAILY@1600 PO 07/25/17 16:00 Future hold 07/27/17 15:29 (Percocet 10-325 Mg) 1 tab Q6H PRN PO 07/24/17 09:30 07/29/17 05:54 (Percocet 5-325 Mg) 1 tab Q6H PRN PO 07/24/17 09:30 07/24/17 16:52 (Dilaudid Pf Inj) 0.5 mg Q6H PRN IV PUSH 07/24/17 12:30 07/29/17 09:03 (Advil) 200 mg Q6H PO 07/24/17 14:00 07/29/17 08:51 Azithromycin 500 mg/Sodium Chloride 250 ml @ 250 mls/hr Q24H IV 07/24/17 14:00 07/28/17 14:51 (Keppra) 500 mg Q12HR PO 07/24/17 21:00 07/29/17 08:51 (Zofran Odt) 4 mg Q6H PRN PO 07/25/17 02:30 07/26/17 05:25 (Phenergan) 25 mg Q6H PRN PO 07/25/17 11:15 07/25/17 22:27 (Lasix Inj) 20 mg DAILY IV PUSH 07/28/17 09:00 07/29/17 08:50 (Heparin Inj) 5,000 units UNSCH PRN IV PUSH 07/29/17 15:15 (Heparin Inj) 2,500 units UNSCH PRN IV PUSH 07/29/17 15:15 Heparin Sodium/ Dextrose 250 ml @ 14 mls/hr TITRATE PRN IV 07/29/17 10:00 07/29/17 10:47 (Ativan) 1 mg Q12H PRN PO 07/29/17 09:30 Vancomycin HCl 1250 mg/Sodium Chloride 262.5 ml @ 250 mls/hr Q18H IV 07/29/17 12:00 ([facility] [place] [facility] Ordered Lab Info) SPECIFIC LAB TO BE DRAWN:VANCO TROUGH DATE... ONCE ONCE .XX 07/31/17 17:45 07/31/17 17:46 A/P Problem List: (1) Sepsis ICD Code: A41.9 - Sepsis, unspecified organism Status: Acute (2) Pleural effusion ICD Code: J90 - Pleural effusion Status: Acute (3) Pneumonia ICD Code: J18.9 - Pneumonia, unspecified organism (4) Community acquired pneumonia ICD Code: J18.9 - Community acquired pneumonia Status: Acute Assessment and Plan 26-year-old female with history of infective endocarditis in 2010, past history of IVDU, status post mitral and tricuspid valve replacements and redo with prosthetic valves on Coumadin, ischemic/hemorrhagic stroke with left-sided deficit, seizure disorder, cirrhosis, ascites, presents with 3 days of malaise, fever, cough, shortness of breath. Sepsis with community-acquired pneumonia: Patient initially met sepsis criteria with temp 103, tachycardia HR 108, and leukocytosis WBC 18.6 K, suspected source pneumonia. -CT-PA 07/24 reviewed, no PE, shows patchy parenchymal infiltrates in the lungs, worse SOCRATES with tiny right pleural effusion -CXR 07/26 reviewed, shows cardiomegaly, mild right pleural effusion with consolidation at right lung base -Continue antibiotics with IV cefepime, azithromycin, vancomycin with pharmacy consult -Echo with EF 45-50%; cannot rule out vegetations on prosthetic valves, however blood cultures negative 4 days -Overall improving, WBC 9.8K, afebrile, no tachycardia -Continue to monitor for clinical improvement Hx of infective endocarditis with mechanical valves: On Coumadin with subtherapeutic INR -Restart patient's Coumadin with pharmacy consult -Start on IV heparin drip with goal INR 2.5-3.5 -Monitor daily PT/INR Hepatitis C, cirrhosis, ascites: Patient reports increasing abdominal distention -Abdominal ultrasound 07/26 showed small volume of diffuse peritoneal fluid -Attempted paracentesis 07/28, however ascites has improved and unable to perform paracentesis -Continue diuretics with Lasix 20 mg daily -ascites improving Seizure Disorder/Migraines: chronic -continue patient's Keppra and Topamax Chronic Pain: chronic -continue Percocet prn, IV dilaudid 0.5mg q8h prn breakthrough (continue to wean off IV pain med) -Continue robaxin tid Anxiety: patient reporting increasing anxiety while in hospital -continue patient's Ativan 1mg po bid prn (verified on [facility]se, although last filled 60 tabs on 04/[address] Arturo Antony in [place]) DVT Prophylaxis: on Coumadin and IV Heparin drip Discharge Planning Clinically improving. Likely needs to stay in hospital until INR therapeutic > 2.5. On IV Heparin drip. Seda Jules PA-C Jul 29, 2017 9:17 am
[2017-07-29] MEDS: HEPARIN-D5W 25,000 U/250 ML 250 ML IV PRN (10:47)
[2017-07-29] MEDS ORDERED: HEPARIN SODIUM - IV 10,000 UNITS/10 ML VIAL IV PUSH PRN ×2 (15:15)
[2017-07-29] MEDS: VANCOMYCIN INJ 1,250 MG in SODIUM CHLOR 0.9% 250 ML INJ 250 ML IV SCH (15:33)
[2017-07-29] MEDS: WARFARIN SOD 5 MG TAB PO SCH (17:56)
[2017-07-29] MEDS: AZITHROMYCIN INJ 500 MG in SODIUM CHLOR 0.9% 250 ML INJ 250 ML IV SCH (17:56)
[2017-07-29] MEDS: LORazepam 1 MG TAB PO PRN (20:06)
[2017-07-30] VITALS (7 sets, daily range): BP systolic 95–128; BP diastolic 51–80; PULSE 60–66; RESP 16–20; TEMP 97.9–98.4; O2SAT 98–100
[2017-07-30] MEDS: IBUPROFEN 200 MG TAB PO SCH ×4 (01:20→21:14)
[2017-07-30] MEDS: oxyCODONE/ACETAMINOPHEN 10 MG/325 MG TAB PO PRN ×4 (01:20→17:56)
[2017-07-30] MEDS: CEFEPIME INJ 2,000 MG in SODIUM CHLORIDE 0.9% INJ 100 ML IV SCH ×3 (02:50→21:13)
[2017-07-30] MEDS: HEPARIN-D5W 25,000 U/250 ML 250 ML IV PRN ×2 (02:50→22:12)
[2017-07-30] MEDS: HYDROmorphone HCL PF 0.5 MG/0.5 ML SYRINGE IV PUSH PRN ×3 (03:18→14:59)
[2017-07-30] MEDS: VANCOMYCIN INJ 1,250 MG in SODIUM CHLOR 0.9% 250 ML INJ 250 ML IV SCH (05:52)
[2017-07-30 07:58] LABS: INTERNATIONAL NORMALIZED RATIO 1.3 RATIO; PROTHROMBIN TIME - PATIENT 13.2 SEC (9.8-11.6)
[2017-07-30 08:15] LABS: BICARBONATE 22.6 MEQ/L (21.0-32.0); CALCIUM 8.7 MG/DL (8.5-10.1); CREATININE 0.85 MG/DL (0.50-1.00)
[2017-07-30] MEDS: METOPROLOL TARTRATE 25 MG TAB PO SCH ×2 (09:02→21:13)
[2017-07-30] MEDS: TOPIRAMATE 25 MG TAB PO SCH ×2 (09:02→21:13)
[2017-07-30] MEDS: FERROUS SULFATE 325 MG (65 MG ELEMENTAL IRON) TAB PO SCH ×2 (09:02→17:55)
[2017-07-30] MEDS: FUROSEMIDE 20 MG TAB PO SCH (09:02)
[2017-07-30] MEDS: levETIRAcetam 500 MG TAB PO SCH ×2 (09:02→21:13)
[2017-07-30] MEDS: METHOCARBAMOL 500 MG TAB PO SCH ×3 (09:02→17:54)
[2017-07-30] MEDS: ASPIRIN 81 MG CHEW TAB CHEW SCH (09:02)
[2017-07-30] MEDS: FLUoxetine HCL 20 MG CAP PO SCH (09:03)
[2017-07-30] MEDS: SODIUM CHLORIDE 0.9% FLUSH 10 ML FLUSH IV FLUSH SCH ×2 (09:03→21:14)
[2017-07-30] MEDS: AZITHROMYCIN INJ 500 MG in SODIUM CHLOR 0.9% 250 ML INJ 250 ML IV SCH (13:46)
[2017-07-30] MEDS: LORazepam 1 MG TAB PO PRN (13:48)
--- NOTE | 2017-07-30 15:31 | HHI.PR ---
Subjective Remarks Patient is sleeping comfortable in bed with her boyfriend. She still on nasal cannula oxygen but not short of breath. Objective Vitals Vital Signs Date Time Temp Pulse Resp B/P (MAP) Pulse Ox O2 Delivery O2 Flow Rate FiO2 07/30/17 12:00 97.9 60 20 95/51 (66) 100 07/30/17 08:00 98.1 60 20 104/61 (75) 100 07/30/17 04:00 98.1 66 16 128/80 (96) 100 07/30/17 04:00 61 07/30/17 03:56 Nasal Cannula 2.00 07/30/17 00:00 62 07/30/17 00:00 98.2 60 19 101/52 (68) 100 07/30/17 00:00 Nasal Cannula 2.00 07/29/17 20:00 98.1 60 14 92/59 (70) 96 07/29/17 20:00 64 07/29/17 20:00 Nasal Cannula 2.00 07/29/17 18:37 63 07/29/17 18:37 100 Nasal Cannula 2.00 07/29/17 16:00 98.1 62 20 97/46 (63) 100 I/O 07/29/17 07/29/17 07/29/17 07/30/17 07/30/17 07/30/17 07:00 15:00 23:00 07:00 15:00 23:00 Intake Total 580 ml 120 ml 240 ml Output Total 500 ml 800 ml Balance 80 ml 120 ml -560 ml Intake Oral 480 ml 120 ml 240 ml IV Total 100 ml Output Urine Total 500 ml 800 ml # Voids 6 # Bowel Movements 0 0 0 Result Diagram: 07/29/17 0735 07/30/17 0715 Objective Remarks GENERAL: Well-nourished, well-developed patient. SKIN: Warm and dry. HEAD: Normocephalic. EYES: No scleral icterus. No injection or drainage. NECK: Supple, trachea midline. No JVD or lymphadenopathy. CARDIOVASCULAR: Regular rate and rhythm without murmurs, gallops, or rubs. RESPIRATORY: Lungs mostly clear with scattered crackles in right base. No accessory muscle use. GASTROINTESTINAL: Abdomen soft, non-tender, nondistended. EXTREMITIES: No cyanosis, or edema. NEUROLOGICAL: Awake, alert, and oriented x 3. Non-focal. A/P Problem List: (1) Sepsis ICD Code: A41.9 - Sepsis, unspecified organism Status: Acute (2) Pleural effusion ICD Code: J90 - Pleural effusion Status: Acute (3) Pneumonia ICD Code: J18.9 - Pneumonia, unspecified organism (4) Community acquired pneumonia ICD Code: J18.9 - Community acquired pneumonia Status: Acute Assessment and Plan 26-year-old female admitted secondary to pneumonia with sepsis,h/o IVDU Community-acquired pneumonia, sepsis Clinically improving, no longer showing signs of sepsis Continue cefepime, vancomycin, azithromycin Patient is off of oxygen currently 2D echocardiogram pending to screen for vegetations given history Blood cultures show no growth in 2 days Congestive heart failure Chest x-ray shows cardiomegaly and right pleural effusion Ejection fraction 40-45% 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 Apparently the patient had a redo Valve replacements in 2015 at [facility] Coumadin restarted, awaiting therapeutic INR, goal INR 2.5-3.5 Left hemiplegia Chronic, continue supportive care History of cirrhosis and ascites, hep C, SBP Small amount of fluid present on ultrasound of abdomen Lasix recommended for treatment h/o renal failure, seizures, intracranial abscess Continue Keppra and Topamax Chronic pain Percocet, Dilaudid, Robaxin Anxiety Ativan as needed DVT prophylaxis Bridging to Coumadin Heparin Obinna Gaona MD Jul 30, 2017 15:31
[2017-07-30] MEDS ORDERED: WARFARIN SOD 4 MG TAB PO ONE (16:00)
[2017-07-30] MEDS: WARFARIN SOD 5 MG TAB PO SCH (17:55)
[2017-07-30] MEDS: HYDROmorphone HCL PF 2 MG/ML VIAL IV PUSH PRN (21:00)
[2017-07-31] VITALS (12 sets, daily range): BP systolic 104–150; BP diastolic 48–63; PULSE 59–88; RESP 16–20; TEMP 97.2–98.5; O2SAT 95–100
[2017-07-31] MEDS: VANCOMYCIN INJ 1,250 MG in SODIUM CHLOR 0.9% 250 ML INJ 250 ML IV SCH ×2 (00:13→18:19)
[2017-07-31] MEDS: LORazepam 1 MG TAB PO PRN ×2 (00:13→20:28)
[2017-07-31] MEDS: oxyCODONE/ACETAMINOPHEN 10 MG/325 MG TAB PO PRN ×4 (00:13→18:08)
[2017-07-31] MEDS: IBUPROFEN 200 MG TAB PO SCH ×4 (02:45→20:28)
[2017-07-31] MEDS: CEFEPIME INJ 2,000 MG in SODIUM CHLORIDE 0.9% INJ 100 ML IV SCH ×3 (02:46→20:29)
[2017-07-31] MEDS: HYDROmorphone HCL PF 2 MG/ML VIAL IV PUSH PRN ×4 (02:46→20:28)
[2017-07-31] MEDS: SODIUM CHLORIDE 0.9% FLUSH 10 ML FLUSH IV FLUSH SCH ×2 (09:00→20:29)
[2017-07-31] MEDS: ASPIRIN 81 MG CHEW TAB CHEW SCH (09:18)
[2017-07-31] MEDS: TOPIRAMATE 25 MG TAB PO SCH ×2 (09:18→20:28)
[2017-07-31] MEDS: FLUoxetine HCL 20 MG CAP PO SCH (09:18)
[2017-07-31] MEDS: FERROUS SULFATE 325 MG (65 MG ELEMENTAL IRON) TAB PO SCH ×2 (09:19→18:07)
[2017-07-31] MEDS: levETIRAcetam 500 MG TAB PO SCH ×2 (09:19→20:28)
[2017-07-31] MEDS: METHOCARBAMOL 500 MG TAB PO SCH ×3 (09:19→18:07)
[2017-07-31] MEDS: METOPROLOL TARTRATE 25 MG TAB PO SCH ×2 (09:19→20:28)
[2017-07-31] MEDS: FUROSEMIDE 20 MG TAB PO SCH (09:19)
[2017-07-31 11:48] LABS: INTERNATIONAL NORMALIZED RATIO 1.5 RATIO
--- NOTE | 2017-07-31 12:49 | HHI.PR ---
Subjective Remarks Patient is resting comfortably in bed, she is off oxygen this morning and breathing fine. She has no complaints. She remains here for achieving therapeutic Coumadin prior to discharge. Objective Vitals Vital Signs Date Time Temp Pulse Resp B/P (MAP) Pulse Ox O2 Delivery O2 Flow Rate FiO2 07/31/17 08:02 62 07/31/17 08:00 97.7 59 16 140/59 (86) 99 07/31/17 07:00 Nasal Cannula 2.00 07/31/17 04:00 97.7 61 20 110/50 (70) 100 07/31/17 04:00 Nasal Cannula 2.00 07/31/17 03:59 62 07/31/17 00:01 59 07/31/17 00:00 97.9 60 18 106/60 (75) 95 07/31/17 00:00 Room Air 07/30/17 20:21 61 07/30/17 20:00 98.3 62 18 106/59 (75) 98 07/30/17 20:00 Room Air 07/30/17 16:00 98.4 63 20 99/57 (71) 99 07/30/17 16:00 64 I/O 07/30/17 07/30/17 07/30/17 07/31/17 07/31/17 07/31/17 07:00 15:00 23:00 07:00 15:00 23:00 Intake Total 240 ml 100 ml 1264 ml Output Total 800 ml 1800 ml 1800 ml Balance -560 ml -1700 ml -536 ml Intake Oral 240 ml 0 ml 720 ml IV Total 100 ml 544 ml Output Urine Total 800 ml 1800 ml 1800 ml # Bowel Movements 0 0 1 Result Diagram: 07/29/17 0735 07/30/17 0715 Objective Remarks GENERAL: Well-nourished, well-developed patient. SKIN: Warm and dry. HEAD: Normocephalic. EYES: No scleral icterus. No injection or drainage. NECK: Supple, trachea midline. No JVD or lymphadenopathy. CARDIOVASCULAR: Regular rate and rhythm without murmurs, gallops, or rubs. RESPIRATORY: Lungs mostly clear with scattered crackles in right base. No accessory muscle use. GASTROINTESTINAL: Abdomen soft, non-tender, nondistended. EXTREMITIES: No cyanosis, or edema. NEUROLOGICAL: Awake, alert, and oriented x 3. Non-focal. A/P Problem List: (1) Sepsis ICD Code: A41.9 - Sepsis, unspecified organism Status: Acute (2) Pleural effusion ICD Code: J90 - Pleural effusion Status: Acute (3) Pneumonia ICD Code: J18.9 - Pneumonia, unspecified organism (4) Community acquired pneumonia ICD Code: J18.9 - Community acquired pneumonia Status: Acute Assessment and Plan 26-year-old female admitted secondary to pneumonia with sepsis,h/o IVDU, awaiting therapeutic Coumadin level prior to discharge Community-acquired pneumonia, sepsis Clinically improving, no longer showing signs of sepsis Continue cefepime, vancomycin, azithromycin Patient is off of oxygen currently 2D echocardiogram pending to screen for vegetations given history Blood cultures show no growth in 2 days Congestive heart failure Chest x-ray shows cardiomegaly and right pleural effusion Ejection fraction 40-45% 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 Apparently the patient had a redo Valve replacements in 2015 at [facility] Coumadin restarted, awaiting therapeutic INR, goal INR 2.5-3.5 Patient receiving baseline of 5 mg of Coumadin daily, extra dose of 4 mg given yesterday bumped INR by 0.2 Today an extra dose of 6 mg was given, will recheck INR in the a.m. Left hemiplegia Chronic, continue supportive care History of cirrhosis and ascites, hep C, SBP Small amount of fluid present on ultrasound of abdomen Lasix recommended for treatment h/o renal failure, seizures, intracranial abscess Continue Keppra and Topamax Chronic pain Percocet, Dilaudid, Robaxin Anxiety Ativan as needed DVT prophylaxis Bridging to Coumadin Heparin Obinna Gaona MD Jul 31, 2017 12:49
[2017-07-31] MEDS: AZITHROMYCIN INJ 500 MG in SODIUM CHLOR 0.9% 250 ML INJ 250 ML IV SCH (13:49)
[2017-07-31] MEDS: WARFARIN SOD 5 MG TAB PO SCH (15:16)
[2017-07-31] MEDS: HEPARIN-D5W 25,000 U/250 ML 250 ML IV PRN (15:42)
[2017-07-31] MEDS ORDERED: WARFARIN SOD 6 MG TAB PO ONE (16:00)
[2017-07-31] MEDS ORDERED: PHARMACY ORDERED LAB ONE (17:45)
[2017-08-01] VITALS (8 sets, daily range): BP systolic 100–136; BP diastolic 50–59; PULSE 59–70; RESP 18; TEMP 98–98.9; O2SAT 95–100
[2017-08-01] MEDS: oxyCODONE/ACETAMINOPHEN 10 MG/325 MG TAB PO PRN ×4 (00:09→17:49)
[2017-08-01] MEDS: HYDROmorphone HCL PF 2 MG/ML VIAL IV PUSH PRN ×4 (03:03→21:07)
[2017-08-01] MEDS: CEFEPIME INJ 2,000 MG in SODIUM CHLORIDE 0.9% INJ 100 ML IV SCH ×3 (03:03→21:04)
[2017-08-01] MEDS: IBUPROFEN 200 MG TAB PO SCH ×4 (03:03→21:06)
[2017-08-01 06:15] LABS: HEMATOCRIT 30.7 % (35.0-46.0); HEMOGLOBIN 9.8 GM/DL (11.6-15.3); MEAN CELL VOLUME 87.8 FL (80.0-100.0); MEAN CORPUSCULAR HGB CONC 31.8 % (32.0-36.0); MEAN PLATELET VOLUME 7.9 FL (7.0-11.0); PLATELET COUNT 437 TH/MM3 (150-450); RED BLOOD COUNT 3.49 MIL/MM3 (4.00-5.30); RED CELL DISTRIBUTION WIDTH 15.7 % (11.6-17.2); WHITE BLOOD COUNT 11.4 TH/MM3 (4.0-11.0)
[2017-08-01 06:35] LABS: INTERNATIONAL NORMALIZED RATIO 2.2 RATIO; PROTHROMBIN TIME - PATIENT 22.1 SEC (9.8-11.6)
[2017-08-01] MEDS: FUROSEMIDE 20 MG TAB PO SCH (08:49)
[2017-08-01] MEDS: levETIRAcetam 500 MG TAB PO SCH ×2 (08:49→21:05)
[2017-08-01] MEDS: ASPIRIN 81 MG CHEW TAB CHEW SCH (08:49)
[2017-08-01] MEDS: FERROUS SULFATE 325 MG (65 MG ELEMENTAL IRON) TAB PO SCH ×2 (08:50→17:49)
[2017-08-01] MEDS: METOPROLOL TARTRATE 25 MG TAB PO SCH ×2 (08:50→21:05)
[2017-08-01] MEDS: TOPIRAMATE 25 MG TAB PO SCH ×2 (08:50→21:05)
[2017-08-01] MEDS: FLUoxetine HCL 20 MG CAP PO SCH (08:50)
[2017-08-01] MEDS: SODIUM CHLORIDE 0.9% FLUSH 10 ML FLUSH IV FLUSH SCH ×2 (08:50→21:04)
[2017-08-01] MEDS: METHOCARBAMOL 500 MG TAB PO SCH ×3 (08:50→17:49)
[2017-08-01] MEDS: HEPARIN-D5W 25,000 U/250 ML 250 ML IV PRN (12:24)
[2017-08-01] MEDS: VANCOMYCIN INJ 1,250 MG in SODIUM CHLOR 0.9% 250 ML INJ 250 ML IV SCH (13:24)
--- NOTE | 2017-08-01 13:36 | HHI.PR ---
Subjective Remarks Patient is resting comfortably off of oxygen. She states she was able to walk to the end of the vigil but then became distressed and had a difficult time walking all the way back. Objective Vitals Vital Signs Date Time Temp Pulse Resp B/P (MAP) Pulse Ox O2 Delivery O2 Flow Rate FiO2 08/01/17 12:00 98.4 61 18 108/54 (72) 97 08/01/17 08:00 99 Room Air 08/01/17 08:00 98.2 62 18 136/59 (84) 99 08/01/17 04:00 Room Air 08/01/17 04:00 98.0 59 18 122/54 (76) 95 08/01/17 03:45 63 08/01/17 00:00 Room Air 08/01/17 00:00 98.0 62 18 100/50 (67) 100 07/31/17 23:56 61 07/31/17 20:00 98.5 60 18 150/54 (86) 96 07/31/17 20:00 Room Air 07/31/17 19:51 60 07/31/17 16:10 60 07/31/17 16:00 97.2 59 16 105/57 (73) 100 07/31/17 16:00 97.3 88 18 104/63 (77) 96 I/O 07/31/17 07/31/17 07/31/17 08/01/17 08/01/17 08/01/17 07:00 15:00 23:00 07:00 15:00 23:00 Intake Total 1264 ml 1060 ml 988 ml Output Total 1800 ml 700 ml Balance -536 ml 360 ml 988 ml Intake Oral 720 ml 960 ml 720 ml IV Total 544 ml 100 ml 268 ml Output Urine Total 1800 ml 700 ml # Voids 6 # Bowel Movements 1 1 0 Result Diagram: 08/01/17 0536 07/30/17 0715 Objective Remarks GENERAL: Well-nourished, well-developed patient. SKIN: Warm and dry. HEAD: Normocephalic. EYES: No scleral icterus. No injection or drainage. NECK: Supple, trachea midline. No JVD or lymphadenopathy. CARDIOVASCULAR: Regular rate and rhythm without murmurs, gallops, or rubs. RESPIRATORY: Lungs mostly clear with scattered crackles in right base. No accessory muscle use. GASTROINTESTINAL: Abdomen soft, non-tender, nondistended. EXTREMITIES: No cyanosis, or edema. NEUROLOGICAL: Awake, alert, and oriented x 3. Non-focal. A/P Problem List: (1) Sepsis ICD Code: A41.9 - Sepsis, unspecified organism Status: Acute (2) Pleural effusion ICD Code: J90 - Pleural effusion Status: Acute (3) Pneumonia ICD Code: J18.9 - Pneumonia, unspecified organism (4) Community acquired pneumonia ICD Code: J18.9 - Community acquired pneumonia Status: Acute Assessment and Plan 26-year-old female admitted secondary to pneumonia with sepsis,h/o IVDU, awaiting therapeutic Coumadin level prior to discharge Community-acquired pneumonia, sepsis Clinically improved, nearing stability for discharge level Continue cefepime, vancomycin, azithromycin 2D echocardiogram could not rule out vegetations on prosthetic valve Blood cultures show no growth Congestive heart failure Chest x-ray shows cardiomegaly and right pleural effusion Ejection fraction 40-45% 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 Patient had redo Valve replacements in 2016 at [facility] Coumadin nearing therapeutic level, goal INR 2.5-3.5 Left hemiplegia Chronic, continue supportive care History of cirrhosis and ascites, hep C, SBP Small amount of fluid present on ultrasound of abdomen Lasix recommended for treatment h/o renal failure, seizures, intracranial abscess Continue Keppra and Topamax Chronic pain Percocet, Dilaudid, Robaxin Anxiety Ativan as needed DVT prophylaxis Bridging to Coumadin Heparin Obinna Gaona MD Aug 01, 2017 13:36
[2017-08-01] MEDS: AZITHROMYCIN INJ 500 MG in SODIUM CHLOR 0.9% 250 ML INJ 250 ML IV SCH (14:35)
[2017-08-01] MEDS ORDERED: WARFARIN SOD 4 MG TAB PO ONE (16:00)
[2017-08-01] MEDS: WARFARIN SOD 5 MG TAB PO SCH (17:50)
[2017-08-02] VITALS (9 sets, daily range): BP systolic 114–131; BP diastolic 53–73; PULSE 60–68; RESP 18; TEMP 97.9–98.5; O2SAT 97–100
[2017-08-02] MEDS: LORazepam 1 MG TAB PO PRN ×2 (00:24→22:13)
[2017-08-02] MEDS: oxyCODONE/ACETAMINOPHEN 10 MG/325 MG TAB PO PRN ×3 (00:24→15:52)
[2017-08-02] MEDS: HYDROmorphone HCL PF 2 MG/ML VIAL IV PUSH PRN ×4 (03:13→22:13)
[2017-08-02] MEDS: IBUPROFEN 200 MG TAB PO SCH ×4 (03:13→21:15)
[2017-08-02] MEDS: CEFEPIME INJ 2,000 MG in SODIUM CHLORIDE 0.9% INJ 100 ML IV SCH ×3 (04:00→21:05)
[2017-08-02] MEDS: VANCOMYCIN INJ 1,250 MG in SODIUM CHLOR 0.9% 250 ML INJ 250 ML IV SCH (05:47)
[2017-08-02] MEDS: HEPARIN-D5W 25,000 U/250 ML 250 ML IV PRN (08:59)
[2017-08-02] MEDS: ASPIRIN 81 MG CHEW TAB CHEW SCH (09:00)
[2017-08-02] MEDS: SODIUM CHLORIDE 0.9% FLUSH 10 ML FLUSH IV FLUSH SCH ×2 (09:00→21:15)
[2017-08-02] MEDS: levETIRAcetam 500 MG TAB PO SCH ×2 (09:00→21:14)
[2017-08-02] MEDS: METHOCARBAMOL 500 MG TAB PO SCH ×3 (09:00→18:36)
[2017-08-02] MEDS: TOPIRAMATE 25 MG TAB PO SCH ×2 (09:00→21:15)
[2017-08-02] MEDS: FLUoxetine HCL 20 MG CAP PO SCH (09:01)
[2017-08-02] MEDS: METOPROLOL TARTRATE 25 MG TAB PO SCH ×2 (09:02→21:14)
[2017-08-02] MEDS: FUROSEMIDE 20 MG TAB PO SCH (09:02)
[2017-08-02] MEDS: FERROUS SULFATE 325 MG (65 MG ELEMENTAL IRON) TAB PO SCH ×2 (09:02→18:36)
[2017-08-02 09:30] LABS: INTERNATIONAL NORMALIZED RATIO 2.3 RATIO; PROTHROMBIN TIME - PATIENT 23.2 SEC (9.8-11.6)
[2017-08-02] MEDS: oxyCODONE/ACETAMINOPHEN 5 MG/325 MG TAB PO PRN ×2 (12:42→19:27)
[2017-08-02] MEDS: AZITHROMYCIN INJ 500 MG in SODIUM CHLOR 0.9% 250 ML INJ 250 ML IV SCH (13:32)
[2017-08-02] MEDS ORDERED: WARFARIN SOD 6 MG TAB PO ONE (14:45)
--- NOTE | 2017-08-02 14:47 | HHI.PR ---
Subjective Remarks Patient is resting comfortably, still off of oxygen. She did not become therapeutic with her INR today. Objective Vitals Vital Signs Date Time Temp Pulse Resp B/P (MAP) Pulse Ox O2 Delivery O2 Flow Rate FiO2 08/02/17 12:00 97.9 60 18 114/53 (73) 98 08/02/17 08:00 98.0 68 18 119/56 (77) 97 08/02/17 08:00 Room Air 08/02/17 04:00 60 08/02/17 00:00 60 08/02/17 00:00 98.5 60 18 121/53 (75) 98 08/01/17 20:00 67 08/01/17 20:00 98.9 70 18 121/56 (77) 99 08/01/17 17:34 67 08/01/17 17:34 97 Room Air 08/01/17 16:00 98.7 61 18 107/53 (71) 97 I/O 08/01/17 08/01/17 08/01/17 08/02/17 08/02/17 08/02/17 07:00 15:00 23:00 07:00 15:00 23:00 Intake Total 988 ml 480 ml 1226 ml Balance 988 ml 480 ml 1226 ml Intake Oral 720 ml 480 ml 900 ml IV Total 268 ml 326 ml # Voids 6 7 3 # Bowel Movements 0 2 0 Result Diagram: 08/01/17 0536 07/30/17 0715 Objective Remarks GENERAL: Well-nourished, well-developed patient. SKIN: Warm and dry. HEAD: Normocephalic. EYES: No scleral icterus. No injection or drainage. NECK: Supple, trachea midline. No JVD or lymphadenopathy. CARDIOVASCULAR: Regular rate and rhythm without murmurs, gallops, or rubs. RESPIRATORY: Lungs mostly clear with scattered crackles in right base. No accessory muscle use. GASTROINTESTINAL: Abdomen soft, non-tender, nondistended. EXTREMITIES: No cyanosis, or edema. NEUROLOGICAL: Awake, alert, and oriented x 3. Non-focal. A/P Problem List: (1) Sepsis ICD Code: A41.9 - Sepsis, unspecified organism Status: Acute (2) Pleural effusion ICD Code: J90 - Pleural effusion Status: Acute (3) Pneumonia ICD Code: J18.9 - Pneumonia, unspecified organism (4) Community acquired pneumonia ICD Code: J18.9 - Community acquired pneumonia Status: Acute Assessment and Plan 26-year-old female admitted secondary to pneumonia with sepsis,h/o IVDU, still not therapeutic with her INR Community-acquired pneumonia, sepsis Clinically improved, nearing stability for discharge level Continue cefepime, vancomycin, azithromycin 2D echocardiogram could not rule out vegetations on prosthetic valve Blood cultures show no growth Congestive heart failure Chest x-ray shows cardiomegaly and right pleural effusion Ejection fraction 40-45% 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 Patient had redo Valve replacements in 2016 at [facility] Coumadin nearing therapeutic level, goal INR 2.5-3.5 Left hemiplegia Chronic, continue supportive care History of cirrhosis and ascites, hep C, SBP Small amount of fluid present on ultrasound of abdomen Lasix recommended for treatment h/o renal failure, seizures, intracranial abscess Continue Keppra and Topamax Chronic pain Percocet, Dilaudid, Robaxin Anxiety Ativan as needed DVT prophylaxis Bridging to Coumadin Heparin Obinna Gaona MD Aug 02, 2017 14:47
[2017-08-02] MEDS: WARFARIN SOD 5 MG TAB PO SCH (18:36)
[2017-08-03] VITALS (9 sets, daily range): BP systolic 97–126; BP diastolic 40–52; PULSE 44–71; RESP 17–20; TEMP 98–98.4; O2SAT 95–99
[2017-08-03] MEDS: VANCOMYCIN INJ 1,250 MG in SODIUM CHLOR 0.9% 250 ML INJ 250 ML IV SCH ×2 (00:41→18:36)
[2017-08-03] MEDS: oxyCODONE/ACETAMINOPHEN 10 MG/325 MG TAB PO PRN ×3 (00:59→20:00)
[2017-08-03] MEDS: IBUPROFEN 200 MG TAB PO SCH ×4 (02:00→20:00)
[2017-08-03] MEDS: HYDROmorphone HCL PF 2 MG/ML VIAL IV PUSH PRN ×4 (04:14→22:18)
[2017-08-03] MEDS: CEFEPIME INJ 2,000 MG in SODIUM CHLORIDE 0.9% INJ 100 ML IV SCH ×3 (04:14→20:00)
[2017-08-03 04:55] LABS: INTERNATIONAL NORMALIZED RATIO 2.7 RATIO; PROTHROMBIN TIME - PATIENT 27.3 SEC (9.8-11.6)
[2017-08-03 05:07] LABS: CREATININE 0.98 MG/DL (0.50-1.00)
[2017-08-03] MEDS: HEPARIN-D5W 25,000 U/250 ML 250 ML IV PRN (07:32)
[2017-08-03] MEDS: FUROSEMIDE 20 MG TAB PO SCH (08:32)
[2017-08-03] MEDS: METOPROLOL TARTRATE 25 MG TAB PO SCH ×2 (08:32→20:01)
[2017-08-03] MEDS: FERROUS SULFATE 325 MG (65 MG ELEMENTAL IRON) TAB PO SCH ×2 (08:32→18:35)
[2017-08-03] MEDS: TOPIRAMATE 25 MG TAB PO SCH ×2 (08:32→20:00)
[2017-08-03] MEDS: METHOCARBAMOL 500 MG TAB PO SCH ×3 (08:32→18:35)
[2017-08-03] MEDS: SODIUM CHLORIDE 0.9% FLUSH 10 ML FLUSH IV FLUSH SCH ×2 (08:33→21:00)
[2017-08-03] MEDS: FLUoxetine HCL 20 MG CAP PO SCH (08:33)
[2017-08-03] MEDS: ASPIRIN 81 MG CHEW TAB CHEW SCH (08:33)
[2017-08-03] MEDS: levETIRAcetam 500 MG TAB PO SCH ×2 (08:33→20:01)
[2017-08-03] MEDS: AZITHROMYCIN INJ 500 MG in SODIUM CHLOR 0.9% 250 ML INJ 250 ML IV SCH (13:35)
[2017-08-03] MEDS: oxyCODONE/ACETAMINOPHEN 5 MG/325 MG TAB PO PRN (13:46)
--- NOTE | 2017-08-03 15:51 | HHI.PR ---
Subjective Remarks Patient is finally therapeutic on Coumadin. She states that she still has abdominal pain from ascites. Her breathing is comfortable ,she denies any shortness of breath. Objective Vitals Vital Signs Date Time Temp Pulse Resp B/P (MAP) Pulse Ox O2 Delivery O2 Flow Rate FiO2 08/03/17 12:08 61 08/03/17 12:00 98.0 63 18 104/45 (64) 97 08/03/17 08:11 44 08/03/17 08:00 98.1 62 18 116/52 (73) 98 08/03/17 08:00 Room Air 08/03/17 04:00 50 08/03/17 04:00 98.2 63 20 112/49 (70) 95 08/03/17 00:00 Room Air 08/03/17 00:00 61 08/03/17 00:00 98.1 62 20 103/40 (61) 95 08/02/17 20:00 64 08/02/17 20:00 Room Air 08/02/17 20:00 97.9 61 18 131/73 (92) 100 08/02/17 16:07 60 08/02/17 15:50 60 125/53 (77) 99 I/O 08/02/17 08/02/17 08/02/17 08/03/17 08/03/17 08/03/17 07:00 15:00 23:00 07:00 15:00 23:00 Intake Total 1226 ml 600 ml 480 ml 675 ml 434 ml Balance 1226 ml 600 ml 480 ml 675 ml 434 ml Intake Oral 900 ml 480 ml IV Total 326 ml 600 ml 675 ml 434 ml # Voids 3 6 6 # Bowel Movements 0 0 Result Diagram: 08/01/17 0536 08/03/17 0430 Objective Remarks GENERAL: Well-nourished, well-developed patient. SKIN: Warm and dry. HEAD: Normocephalic. EYES: No scleral icterus. No injection or drainage. NECK: Supple, trachea midline. No JVD or lymphadenopathy. CARDIOVASCULAR: Regular rate and rhythm without murmurs, gallops, or rubs. RESPIRATORY: Lungs mostly clear with scattered crackles in right base. No accessory muscle use. GASTROINTESTINAL: Abdomen soft, non-tender, nondistended. EXTREMITIES: No cyanosis, or edema. NEUROLOGICAL: Awake, alert, and oriented x 3. Non-focal. A/P Problem List: (1) Sepsis ICD Code: A41.9 - Sepsis, unspecified organism Status: Acute (2) Pleural effusion ICD Code: J90 - Pleural effusion Status: Acute (3) Pneumonia ICD Code: J18.9 - Pneumonia, unspecified organism (4) Community acquired pneumonia ICD Code: J18.9 - Community acquired pneumonia Status: Acute Assessment and Plan 26-year-old female admitted secondary to pneumonia with sepsis,h/o IVDU, still not therapeutic with her INR Community-acquired pneumonia, sepsis Clinically improved, nearing stability for discharge level Continue cefepime, vancomycin, azithromycin 2D echocardiogram could not rule out vegetations on prosthetic valve Blood cultures show no growth Infectious disease consult to assist with treatment plan Congestive heart failure Chest x-ray shows cardiomegaly and right pleural effusion Ejection fraction 40-45% 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 Patient had redo Valve replacements in 2016 at [facility] Coumadin nearing therapeutic level, goal INR 2.5-3.5 Left hemiplegia Chronic, continue supportive care History of cirrhosis and ascites, hep C, SBP Small amount of fluid present on ultrasound of abdomen Lasix recommended for treatment h/o renal failure, seizures, intracranial abscess Continue Keppra and Topamax Chronic pain Percocet, Dilaudid, Robaxin Anxiety Ativan as needed DVT prophylaxis Bridging to Coumadin Heparin Obinna Gaona MD Aug 03, 2017 15:51
--- NOTE | 2017-08-03 16:15 | RADRPT ---
EXAM DATE: 08/03/2017 4:09 PM EDT AGE/SEX: 26 years / Female INDICATIONS: Pneumonia. CLINICAL DATA: This is the patient's subsequent encounter. Patient reports that signs and symptoms h ave been present for 2 weeks and indicates a pain score of 0/10. MEDICAL/SURGICAL HISTORY: . Seizures. Brain hematoma. Tuberculosis. Syncope. GERD. PID. HEP C. Ascites. Ovarian torsion. . Appendectomy. Cholecystectomy. . Back surgery. [place] [facility] [place] . FINDINGS: Postoperative median sternotomy with mitral and aortic valve replacement. Pacer overlies left heart. Minimal basilar airspace disease which could represent atelectasis although cannot exclude mild bronc hopneumonia. No significant effusion. No pneumothorax. CONCLUSION: Cardiomegaly with mild basilar airspace disease. Postoperative changes as above. Electronically signed by: Yon Dodge MD 08/03/2017 4:14 PM EDT
[2017-08-03] MEDS: WARFARIN SOD 5 MG TAB PO SCH (16:44)
[2017-08-03] MEDS: LORazepam 1 MG TAB PO PRN (22:18)
[2017-08-04] VITALS: BP 106/41; PULSE 60; PULSE 61; RESP 17; TEMP 98.5; O2SAT 95
[2017-08-04] MEDS: oxyCODONE/ACETAMINOPHEN 5 MG/325 MG TAB PO PRN (01:55)
[2017-08-04] MEDS: oxyCODONE/ACETAMINOPHEN 10 MG/325 MG TAB PO PRN ×4 (01:57→20:19)
[2017-08-04] MEDS: IBUPROFEN 200 MG TAB PO SCH ×4 (01:58→20:20)
[2017-08-04 04:00] VITALS: BP 120/54; PULSE 53; PULSE 60; RESP 16; TEMP 98.2; O2SAT 98
[2017-08-04] MEDS: HYDROmorphone HCL PF 2 MG/ML VIAL IV PUSH PRN ×4 (04:12→22:41)
[2017-08-04] MEDS: CEFEPIME INJ 2,000 MG in SODIUM CHLORIDE 0.9% INJ 100 ML IV SCH ×3 (04:15→20:19)
[2017-08-04 07:53] LABS: HEMATOCRIT 32.8 % (35.0-46.0); HEMOGLOBIN 10.7 GM/DL (11.6-15.3); MEAN CELL VOLUME 87.1 FL (80.0-100.0); MEAN CORPUSCULAR HEMOGLOBIN 28.3 PG (27.0-34.0); MEAN CORPUSCULAR HGB CONC 32.5 % (32.0-36.0); PLATELET COUNT 480 TH/MM3 (150-450); RED BLOOD COUNT 3.77 MIL/MM3 (4.00-5.30); RED CELL DISTRIBUTION WIDTH 16.6 % (11.6-17.2)
[2017-08-04 07:59] LABS: INTERNATIONAL NORMALIZED RATIO 2.7 RATIO; PROTHROMBIN TIME - PATIENT 27.7 SEC (9.8-11.6)
[2017-08-04 08:00] VITALS: BP 133/63; PULSE 54; PULSE 61; RESP 20; TEMP 97.9; O2SAT 100
[2017-08-04] MEDS: METHOCARBAMOL 500 MG TAB PO SCH ×3 (08:05→16:42)
[2017-08-04] MEDS: FERROUS SULFATE 325 MG (65 MG ELEMENTAL IRON) TAB PO SCH ×2 (08:06→16:42)
[2017-08-04] MEDS: ASPIRIN 81 MG CHEW TAB CHEW SCH (08:06)
[2017-08-04] MEDS: TOPIRAMATE 25 MG TAB PO SCH ×2 (08:07→20:20)
[2017-08-04] MEDS: METOPROLOL TARTRATE 25 MG TAB PO SCH ×2 (08:07→20:20)
[2017-08-04] MEDS: FLUoxetine HCL 20 MG CAP PO SCH (08:07)
[2017-08-04] MEDS: FUROSEMIDE 20 MG TAB PO SCH (08:07)
[2017-08-04] MEDS: levETIRAcetam 500 MG TAB PO SCH ×2 (08:07→20:20)
[2017-08-04] MEDS: SODIUM CHLORIDE 0.9% FLUSH 10 ML FLUSH IV FLUSH SCH ×2 (08:08→20:20)
[2017-08-04] MEDS: VANCOMYCIN INJ 1,250 MG in SODIUM CHLOR 0.9% 250 ML INJ 250 ML IV SCH (11:44)
[2017-08-04 12:00] VITALS: BP 110/52; PULSE 60; PULSE 63; RESP 20; TEMP 97.8; O2SAT 99
[2017-08-04] MEDS: AZITHROMYCIN INJ 500 MG in SODIUM CHLOR 0.9% 250 ML INJ 250 ML IV SCH (14:01)
--- NOTE | 2017-08-04 14:27 | HHI.PR ---
Subjective Remarks Coumadin is theraputic, patient has no complaints. Awaiting determination on IV antibiotics. Objective Vitals Vital Signs Date Time Temp Pulse Resp B/P (MAP) Pulse Ox O2 Delivery O2 Flow Rate FiO2 08/04/17 12:00 63 08/04/17 09:04 Room Air 08/04/17 08:00 54 08/04/17 08:00 97.9 61 20 133/63 (86) 100 08/04/17 04:00 98.2 60 16 120/54 (76) 98 08/04/17 04:00 53 08/04/17 00:00 61 08/04/17 00:00 Room Air 08/04/17 00:00 98.5 60 17 106/41 (62) 95 08/03/17 20:00 98.4 60 17 126/49 (74) 99 08/03/17 20:00 Room Air 08/03/17 20:00 63 08/03/17 16:20 68 08/03/17 16:00 98.1 71 18 97/47 (64) 99 I/O 08/03/17 08/03/17 08/03/17 08/04/17 08/04/17 08/04/17 07:00 15:00 23:00 07:00 15:00 23:00 Intake Total 675 ml 434 ml 475 ml 920 ml Balance 675 ml 434 ml 475 ml 920 ml Intake Oral 125 ml 820 ml IV Total 675 ml 434 ml 350 ml 100 ml # Voids 6 4 6 # Bowel Movements 1 Result Diagram: 08/04/17 0548 08/03/17 0430 Objective Remarks GENERAL: Well-nourished, well-developed patient. SKIN: Warm and dry. HEAD: Normocephalic. EYES: No scleral icterus. No injection or drainage. NECK: Supple, trachea midline. No JVD or lymphadenopathy. CARDIOVASCULAR: Regular rate and rhythm without murmurs, gallops, or rubs. RESPIRATORY: Lungs mostly clear with scattered crackles in right base. No accessory muscle use. GASTROINTESTINAL: Abdomen soft, non-tender, nondistended. EXTREMITIES: No cyanosis, or edema. NEUROLOGICAL: Awake, alert, and oriented x 3. Non-focal. A/P Problem List: (1) Sepsis ICD Code: A41.9 - Sepsis, unspecified organism Status: Acute (2) Pleural effusion ICD Code: J90 - Pleural effusion Status: Acute (3) Pneumonia ICD Code: J18.9 - Pneumonia, unspecified organism (4) Community acquired pneumonia ICD Code: J18.9 - Community acquired pneumonia Status: Acute Assessment and Plan 26-year-old female admitted secondary to pneumonia with sepsis,h/o IVDU, Coumadin is now theraputic Community-acquired pneumonia, sepsis Clinically improved, nearing stability for discharge level Continue cefepime, vancomycin, azithromycin 2D echocardiogram could not rule out vegetations on prosthetic valve Blood cultures show no growth Infectious disease consulted to assist with treatment plan Congestive heart failure Chest x-ray shows cardiomegaly and right pleural effusion Ejection fraction 40-45% 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 Patient had redo Valve replacements in 2016 at [facility] Coumadin, INR 2.7 Left hemiplegia Chronic, continue supportive care History of cirrhosis and ascites, hep C, SBP Small amount of fluid present on ultrasound of abdomen Lasix recommended for treatment h/o renal failure, seizures, intracranial abscess Continue Keppra and Topamax Chronic pain Percocet, Dilaudid, Robaxin Anxiety Ativan as needed DVT prophylaxis Coumadin is therapeutic now Obinna Gaona MD Aug 04, 2017 14:27
[2017-08-04 16:00] VITALS: BP 130/59; PULSE 60; PULSE 62; RESP 20; TEMP 98.2; O2SAT 100
[2017-08-04] MEDS: WARFARIN SOD 5 MG TAB PO SCH (16:42)
[2017-08-04 20:00] VITALS: BP 134/49; PULSE 61; PULSE 65; RESP 20; TEMP 98.2; O2SAT 100
--- NOTE | 2017-08-04 23:17 | PD.ID.CON ---
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 admitted with fever chills and seizure x 1 day, icredsing abdominalk girth She is s/p MVR/AVR and pacemaker Quit IVDU 3 yrs ago 2 D echo with suspected vegetation mitral and aortic valves Past Family Social History Allergies: Coded Allergies: Fish Containing Products (Unverified Allergy, Severe, THROAT SWOLLEN/HIVES , 07/24/17) codeine (Unverified Allergy, Severe, HIVES/VOMITING, 07/24/17) gabapentin (Unverified Allergy, Severe, Hives, 07/24/17) morphine (Unverified Allergy, Severe, Hives, 07/24/17) naproxen (Unverified Allergy, Severe, Hives, 07/24/17) piperacillin (Verified Allergy, Severe, Hives, 07/24/17) tazobactam (Verified Allergy, Severe, Hives, 07/24/17) Active Ordered Medications Medications where reviewed in EMR Antibiotics Include: vancomycin cefepime Physical Exam Vital Signs Vital Signs Date Time Temp Pulse Resp B/P (MAP) Pulse Ox O2 Delivery O2 Flow Rate FiO2 08/04/17 20:00 98.2 61 20 134/49 (77) 100 08/04/17 20:00 65 08/04/17 20:00 Room Air 08/04/17 16:00 98.2 60 20 130/59 (82) 100 08/04/17 16:00 62 08/04/17 12:00 97.8 60 20 110/52 (71) 99 08/04/17 12:00 63 08/04/17 09:04 Room Air 08/04/17 08:00 54 08/04/17 08:00 97.9 61 20 133/63 (86) 100 08/04/17 04:00 98.2 60 16 120/54 (76) 98 08/04/17 04:00 53 08/04/17 00:00 61 08/04/17 00:00 Room Air 08/04/17 00:00 98.5 60 17 106/41 (62) 95 Physical Exam CONSTITUTIONAL/GENERAL: This is an adequately nourished patient, in no apparent distress. TUBES/LINES/DRAINS: SKIN: No jaundice, rashes, or lesions. Skin temperature appropriate. Not diaphoretic. HEAD: Atraumatic. Normocephalic. EYES: Pupils equal and round and reactive. Extraocular motions intact. No scleral icterus. No injection or drainage. Fundi not examined. ENT: Hearing grossly normal. Nose without bleeding or purulent drainage. Throat without visible erythema, exudates, masses, or lesions. NECK: Trachea midline. Supple, nontender. No palpable thyroid enlargement or nodularity. CARDIOVASCULAR: Regular rate and rhythm with systolic murmur S3 gallop, no rubs. No JVD. Peripheral pulses symmetric. Pacemaker in palce L chest RESPIRATORY/CHEST: Symmetric, unlabored respirations. Clear to auscultation. Breath sounds equal bilaterally. No wheezes, rales, or rhonchi. GASTROINTESTINAL: Abdomen soft, non-tender, distended. No hepato-splenomegaly, or palpable masses. No guarding. Bowel sounds present. GENITOURINARY: Without palpable bladder distension. MUSCULOSKELETAL: Extremities without clubbing, cyanosis, or edema. No joint tenderness or effusion noted. No calf tenderness. No mottling or clubbing. LYMPHATICS: No palpable cervical or supraclavicular adenopathy. NEUROLOGICAL: Awake and alert. Motor and sensory grossly within normal limits. Follows commands. Cognitively sharp. Moves all extremities. PSYCHIATRIC: No obvious anxiety/depression. no apparent hallucinations or other psychotic thought process. Laboratory Laboratory Tests Test 08/04/17 05:48 White Blood Count 11.0 Red Blood Count 3.77 Hemoglobin 10.7 Hematocrit 32.8 Mean Corpuscular Volume 87.1 Mean Corpuscular Hemoglobin 28.3 Mean Corpuscular Hemoglobin Concent 32.5 Red Cell Distribution Width 16.6 Platelet Count 480 Mean Platelet Volume 8.0 Prothrombin Time 27.7 Prothromb Time International Ratio 2.7 Activated Partial Thromboplast Time 31.6 Date/Time Source Procedure Growth Status 07/24/17 02:05 Blood Peripheral Aerobic Blood Culture - Final NO GROWTH IN 5 DAYS Complete 07/24/17 02:05 Blood Peripheral Anaerobic Blood Culture - Final NO GROWTH IN 5 DAYS Complete Result Diagram: 08/04/17 0548 08/03/17 0430 Imaging Last Impressions Chest X-Ray 08/03/17 0000 Signed Impressions: CONCLUSION: Cardiomegaly with mild basilar airspace disease. Postoperative changes as above . Abdomen Ultrasound 07/28/17 0000 Signed Impressions: CONCLUSION: There is only a very small volume of free fluid present within the abdomen and pelvis, not enough for safe paracentesis. Additionally, the fluid volume has de creased compared to the study from [address] 07/24/17 1815 Signed Impressions: CONCLUSION: 1. Stable noncontrast head CT. No acute intracranial abnormality is identified . 2. There is stable right frontoparietal region encephalomalacia. CT Angiography 07/24/17 0000 Signed Impressions: CONCLUSION: 1. There is no evidence for pulmonary embolus. 2. Patchy parenchymal infiltrates in the lungs worse in the left upper lobe wi th a tiny right pleural effusion. Assessment and Plan Assessment and Plan H/o PVE 2 D ECHO wiht ? 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
[2017-08-05] VITALS: BP 114/52; PULSE 59; PULSE 62; RESP 20; TEMP 98.3; O2SAT 96
[2017-08-05] MEDS: oxyCODONE/ACETAMINOPHEN 10 MG/325 MG TAB PO PRN ×4 (02:18→20:53)
[2017-08-05] MEDS: IBUPROFEN 200 MG TAB PO SCH ×4 (02:19→20:54)
[2017-08-05 04:00] VITALS: BP_SYST 121; BP_SYST 122; BP_SYST 124; BP_DIAS 55; BP_DIAS 78; BP_DIAS 79; PULSE 61; PULSE 81; RESP 18; RESP 20; TEMP 97.4; TEMP 98.1; O2SAT 94; O2SAT 98
[2017-08-05] MEDS: HYDROmorphone HCL PF 2 MG/ML VIAL IV PUSH PRN ×4 (04:08→22:08)
[2017-08-05] MEDS ORDERED: PHARMACY ORDERED LAB ONE (05:45)
[2017-08-05 07:19] LABS: PROTHROMBIN TIME - PATIENT 20.7 SEC (9.8-11.6)
[2017-08-05 07:27] LABS: CREATININE 0.93 MG/DL (0.50-1.00)
[2017-08-05 08:00] VITALS: BP 125/57; PULSE 60; PULSE 61; RESP 20; TEMP 97.6; O2SAT 98
[2017-08-05] MEDS: ASPIRIN 81 MG CHEW TAB CHEW SCH (08:25)
[2017-08-05] MEDS: FERROUS SULFATE 325 MG (65 MG ELEMENTAL IRON) TAB PO SCH ×2 (08:25→17:05)
[2017-08-05] MEDS: TOPIRAMATE 25 MG TAB PO SCH ×2 (08:25→20:54)
[2017-08-05] MEDS: METHOCARBAMOL 500 MG TAB PO SCH ×3 (08:25→17:05)
[2017-08-05] MEDS: METOPROLOL TARTRATE 25 MG TAB PO SCH ×2 (08:25→20:54)
[2017-08-05] MEDS: FLUoxetine HCL 20 MG CAP PO SCH (08:25)
[2017-08-05] MEDS: levETIRAcetam 500 MG TAB PO SCH ×2 (08:25→20:54)
[2017-08-05] MEDS: FUROSEMIDE 20 MG TAB PO SCH (08:26)
[2017-08-05] MEDS: SODIUM CHLORIDE 0.9% FLUSH 10 ML FLUSH IV FLUSH SCH ×2 (08:26→20:54)
[2017-08-05 12:00] VITALS: BP 111/50; PULSE 60; RESP 20; TEMP 97.6; O2SAT 97
--- NOTE | 2017-08-05 15:11 | HHI.PR ---
Subjective Remarks Antibiotics were stopped today by infectious disease. Patient will need further workup to rule out vegetations on her heart prior to discharge. Coumadin became on therapeutic at INR of 2.0 today. Objective Vitals Vital Signs Date Time Temp Pulse Resp B/P (MAP) Pulse Ox O2 Delivery O2 Flow Rate FiO2 08/05/17 12:00 60 08/05/17 08:00 60 08/05/17 07:05 Room Air 08/05/17 04:00 Room Air 08/05/17 04:00 98.1 61 20 122/55 (77) 94 08/05/17 00:00 62 08/05/17 00:00 98.3 59 20 114/52 (72) 96 08/05/17 00:00 Room Air 08/04/17 20:00 98.2 61 20 134/49 (77) 100 08/04/17 20:00 65 08/04/17 20:00 Room Air 08/04/17 16:00 98.2 60 20 130/59 (82) 100 08/04/17 16:00 62 I/O 08/04/17 08/04/17 08/04/17 08/05/17 08/05/17 08/05/17 07:00 15:00 23:00 07:00 15:00 23:00 Intake Total 920 ml 250 ml 590 ml 240 ml Balance 920 ml 250 ml 590 ml 240 ml Intake Oral 820 ml 240 ml 240 ml IV Total 100 ml 250 ml 350 ml # Voids 6 4 2 # Bowel Movements 2 0 Result Diagram: 08/04/17 0548 08/05/17 0635 Objective Remarks GENERAL: Well-nourished, well-developed patient. SKIN: Warm and dry. HEAD: Normocephalic. EYES: No scleral icterus. No injection or drainage. NECK: Supple, trachea midline. No JVD or lymphadenopathy. CARDIOVASCULAR: Regular rate and rhythm without murmurs, gallops, or rubs. RESPIRATORY: Lungs mostly clear with scattered crackles in right base. No accessory muscle use. GASTROINTESTINAL: Abdomen soft, non-tender, nondistended. EXTREMITIES: No cyanosis, or edema. NEUROLOGICAL: Awake, alert, and oriented x 3. Non-focal. A/P Problem List: (1) Sepsis ICD Code: A41.9 - Sepsis, unspecified organism Status: Acute (2) Pleural effusion ICD Code: J90 - Pleural effusion Status: Acute (3) Pneumonia ICD Code: J18.9 - Pneumonia, unspecified organism (4) Community acquired pneumonia ICD Code: J18.9 - Community acquired pneumonia Status: Acute Assessment and Plan 26-year-old female admitted secondary to pneumonia with sepsis,h/o IVDU, Coumadin is now theraputic Community-acquired pneumonia, sepsis Treatment with cefepime, vancomycin, azithromycin completed according to infectious disease 2D echocardiogram could not rule out vegetations on prosthetic valve, TAO pending Blood cultures show no growth Appreciate infectious disease consult Appreciate cardiology consult Congestive heart failure Chest x-ray shows cardiomegaly and right pleural effusion Ejection fraction 40-45% 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 Patient had redo Valve replacements in 2015 at [facility] Coumadin subtherapeutic again at INR 2.0 Left hemiplegia Chronic, continue supportive care History of cirrhosis and ascites, hep C, SBP Small amount of fluid present on ultrasound of abdomen Lasix recommended for treatment h/o renal failure, seizures, intracranial abscess Continue Keppra and Topamax Chronic pain Percocet, Dilaudid, Robaxin Anxiety Ativan as needed DVT prophylaxis Coumadin Obinna Gaona MD Aug 05, 2017 15:11
[2017-08-05] MEDS ORDERED: WARFARIN SOD 7.5 MG TAB PO ONE (15:15)
[2017-08-05] MEDS: WARFARIN SOD 7.5 MG TAB PO SCH (15:39)
--- NOTE | 2017-08-05 15:43 | PD.CONS ---
HPI Consult Requested By Primary Care Physician Unknown History of Present Illness 26-year-old female with a complex cardiovascular history including multiple bouts of infective endocarditis, mitral and tricuspid valve replacements, pacemaker placement, cardiomyopathy. She is followed with cardiology at [facility]. The patient initially presented with fever, chills, cough, seizures. She was found to have left upper lobe pneumonia. Echocardiogram was done which was unable to rule out any vegetation on prosthetic valves. ID is on board and recommend a cardiology consultation to rule out endocarditis. The patient reports she has had multiple TAO is done in the past and is very concerned regarding her heart valves and agreeable to proceed with TAO tomorrow. Patient denies any specific acute worsening of her chronic cardiac issues. Review of Systems Patient reports she had some ascites that admission that has improved with Lasix. Past Family Social History Allergies: Coded Allergies: Fish Containing Products (Unverified Allergy, Severe, THROAT SWOLLEN/HIVES , 07/24/17) codeine (Unverified Allergy, Severe, HIVES/VOMITING, 07/24/17) gabapentin (Unverified Allergy, Severe, Hives, 07/24/17) morphine (Unverified Allergy, Severe, Hives, 07/24/17) naproxen (Unverified Allergy, Severe, Hives, 07/24/17) piperacillin (Verified Allergy, Severe, Hives, 07/24/17) tazobactam (Verified Allergy, Severe, Hives, 07/24/17) Past Medical History History of bacterial endocarditis in 2010 and 2015 Hepatitis C History of Cirrhosis with ascites 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 Apparently the patient had a redo Valve replacements in 2016 at [facility] History of respiratory failure requiring intubation and tracheostomy History of renal failure History of seizures History of spontaneous bacterial peritonitis History of intracranial abscess Reports history of cardiomyopathy, but has not required a defibrillator Pacemaker in place, sounds like this was done for episodes of syncope Past Surgical History Mitral/Tricuspid Valve Replacement (Bovine/Porcine) one done in 2010 and one done in 2017 Cholecystectomy Splenectomy Liver biopsy Tracheostomy Multiple paracentesis Carpal tunnel surgery R wrist Pacemaker placement Reported Medications Reported Meds & Active Scripts Active Reported Ferrous Sulfate 325 Mg (65 Mg Iron) Tablet 325 Mg PO BIDPC Coumadin (Warfarin) 5 Mg Tab 5 Mg PO DAILY Metoprolol Tartrate 25 Mg Tab 12.5 Mg PO BID Lisinopril 20 Mg Tab 20 Mg PO DAILY Methocarbamol 500 Mg Tab 500 Mg PO TID Topamax (Topiramate) 50 Mg Tab 50 Mg PO BID Oxycodone-Acetaminophen 10-325 mg Tab 1 Tab PO TID PRN Aspirin Low Dose (Aspirin) 81 Mg Chew 81 Mg CHEW DAILY Prozac (Fluoxetine HCl) 10 Mg Cap 20 Mg PO DAILY Active Ordered Medications Current Medications Medications (Trade) Dose Ordered Sig/Lele Route Start Time Stop Time Status Last Admin (NS Flush) 2 ml UNSCH PRN IV FLUSH 07/24/17 05:15 08/01/17 03:03 (NS Flush) 2 ml BID IV FLUSH 07/24/17 09:00 08/05/17 08:26 (Ativan Inj) 2 mg Q10M PRN IV PUSH 07/24/17 05:15 (Tylenol) 650 mg Q4H PRN PO 07/24/17 05:15 07/24/17 08:03 (Aspirin Chew) 81 mg DAILY CHEW 07/25/17 09:00 08/05/17 08:25 (Ferrous Sulfate) 325 mg BIDPC PO 07/24/17 18:00 08/05/17 08:25 (PROzac) 20 mg DAILY PO 07/25/17 09:00 08/05/17 08:25 (Robaxin) 500 mg TID PO 07/24/17 13:00 08/05/17 12:56 (Lopressor) 12.5 mg BID PO 07/24/17 21:00 08/05/17 08:25 (Topamax) 50 mg BID PO 07/24/17 21:00 08/05/17 08:25 (Percocet 10-325 Mg) 1 tab Q6H PRN PO 07/24/17 09:30 08/05/17 14:35 (Percocet 5-325 Mg) 1 tab Q6H PRN PO 07/24/17 09:30 08/03/17 13:46 (Advil) 200 mg Q6H PO 07/24/17 14:00 08/05/17 12:56 (Keppra) 500 mg Q12HR PO 07/24/17 21:00 08/05/17 08:25 (Zofran Odt) 4 mg Q6H PRN PO 07/25/17 02:30 6/2/18 05:25 (Phenergan) 25 mg Q6H PRN PO 07/25/17 11:15 07/25/17 22:27 (Ativan) 1 mg Q12H PRN PO 07/29/17 09:30 08/03/17 22:18 (Lasix) 20 mg DAILY PO 07/30/17 09:00 08/05/17 08:26 (Dilaudid Pf Inj) 0.5 mg Q6H PRN IV PUSH 07/30/17 21:30 08/05/17 10:12 (Coumadin) 7.5 mg DAILY@16 PO 08/05/17 16:00 Family History Mother with history of MO 2. 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 Physical Exam Vital Signs Vital Signs Date Time Temp Pulse Resp B/P (MAP) Pulse Ox O2 Delivery O2 Flow Rate FiO2 08/05/17 12:00 60 08/05/17 08:00 60 08/05/17 07:05 Room Air 08/05/17 04:00 Room Air 08/05/17 04:00 98.1 61 20 122/55 (77) 94 08/05/17 00:00 62 08/05/17 00:00 98.3 59 20 114/52 (72) 96 08/05/17 00:00 Room Air 08/04/17 20:00 98.2 61 20 134/49 (77) 100 08/04/17 20:00 65 08/04/17 20:00 Room Air 08/04/17 16:00 98.2 60 20 130/59 (82) 100 08/04/17 16:00 62 Physical Exam GENERAL: Well-developed well-nourished. In no acute distress. NECK: No carotid bruits. No JVD. CARDIOVASCULAR: Regular rate and rhythm. 3/6 systolic murmur appreciated with crisp valve sounds. RESPIRATORY: No accessory muscle use. Clear to auscultation. Breath sounds equal bilaterally. MUSCULOSKELETAL: No clubbing or cyanosis. No edema. NEUROLOGICAL: Awake and alert. Normal speech. Laboratory Laboratory Tests Test 08/05/17 06:35 Prothrombin Time 20.7 Prothromb Time International Ratio 2.0 Activated Partial Thromboplast Time 34.5 Creatinine 0.93 Estimat Glomerular Filtration Rate 72 Date/Time Source Procedure Growth Status 07/24/17 02:05 Blood Peripheral Aerobic Blood Culture - Final NO GROWTH IN 5 DAYS Complete 07/24/17 02:05 Blood Peripheral Anaerobic Blood Culture - Final NO GROWTH IN 5 DAYS Complete Result Diagram: 08/04/17 0548 08/05/17 0635 Imaging Last Impressions Chest X-Ray 08/03/17 0000 Signed Impressions: CONCLUSION: Cardiomegaly with mild basilar airspace disease. Postoperative changes as above . Abdomen Ultrasound 07/28/17 0000 Signed Impressions: CONCLUSION: There is only a very small volume of free fluid present within the abdomen and pelvis, not enough for safe paracentesis. Additionally, the fluid volume has de creased compared to the study from [address] 07/24/171814 Signed Impressions: CONCLUSION: 1. Stable noncontrast head CT. No acute intracranial abnormality is identified . 2. There is stable right frontoparietal region encephalomalacia. CT Angiography 07/24/17 0000 Signed Impressions: CONCLUSION: 1. There is no evidence for pulmonary embolus. 2. Patchy parenchymal infiltrates in the lungs worse in the left upper lobe wi th a tiny right pleural effusion. Assessment and Plan Assessment and Plan 26-year-old female with a complex cardiovascular history including multiple bouts of infective endocarditis, mitral and tricuspid valve replacements, pacemaker placement, cardiomyopathy. She is followed with cardiology at [facility]. The patient initially presented with fever, chills, cough, seizures. She was found to have left upper lobe pneumonia. Echocardiogram was done which was unable to rule out any vegetation on prosthetic valves. ID is on board and recommend a cardiology consultation to rule out endocarditis. Sepsis with history of endocarditis s/p mitral/tricuspid valve replacements: We have been consulted for TAO to rule out recurrent endocarditis, will plan for TAO tentatively tomorrow, n.p.o. after midnight. ID on board, and antibiotics per ID. Cardiomyopathy: EF 45-50%. Currently appears compensated. Continue lisinopril. Continue follow-up with primary cardiology team at [facility] as outpatient. Discussed Condition With Patient, Dr. Yen, Leonardo Boswell Aug 05, 2017 15:42
[2017-08-05 16:00] VITALS: BP 114/57; PULSE 60; PULSE 61; RESP 20; TEMP 98.6; O2SAT 99
[2017-08-05 20:00] VITALS: BP 124/60; PULSE 61; PULSE 62; RESP 18; TEMP 98.5; O2SAT 100
[2017-08-05] MEDS: LORazepam 1 MG TAB PO PRN (22:07)
[2017-08-06] VITALS (8 sets, daily range): BP systolic 97–141; BP diastolic 44–61; PULSE 59–61; RESP 18–20; TEMP 97.6–98.5; O2SAT 96–100
[2017-08-06] MEDS: oxyCODONE/ACETAMINOPHEN 10 MG/325 MG TAB PO PRN ×4 (02:50→18:42)
[2017-08-06] MEDS: IBUPROFEN 200 MG TAB PO SCH ×4 (02:51→20:40)
[2017-08-06] MEDS: HYDROmorphone HCL PF 2 MG/ML VIAL IV PUSH PRN ×4 (04:07→22:50)
[2017-08-06 07:54] LABS: INTERNATIONAL NORMALIZED RATIO 1.7 RATIO; PROTHROMBIN TIME - PATIENT 16.7 SEC (9.8-11.6)
--- NOTE | 2017-08-06 08:25 | PD.CARD.PN ---
Subjective Subjective Remarks no complaints Objective Medications Current Medications Medications (Trade) Dose Ordered Sig/Lele Route Start Time Stop Time Status Last Admin (NS Flush) 2 ml UNSCH PRN IV FLUSH 07/24/17 05:15 08/01/17 03:03 (NS Flush) 2 ml BID IV FLUSH 07/24/17 09:00 08/05/17 20:54 (Ativan Inj) 2 mg Q10M PRN IV PUSH 07/24/17 05:15 (Tylenol) 650 mg Q4H PRN PO 07/24/17 05:15 07/24/17 08:03 (Aspirin Chew) 81 mg DAILY CHEW 07/25/17 09:00 08/05/17 08:25 (Ferrous Sulfate) 325 mg BIDPC PO 07/24/17 18:00 08/05/17 17:05 (PROzac) 20 mg DAILY PO 07/25/17 09:00 08/05/17 08:25 (Robaxin) 500 mg TID PO 07/24/17 13:00 08/05/17 17:05 (Lopressor) 12.5 mg BID PO 07/24/17 21:00 08/05/17 20:54 (Topamax) 50 mg BID PO 07/24/17 21:00 08/05/17 20:54 (Percocet 10-325 Mg) 1 tab Q6H PRN PO 07/24/17 09:30 08/06/17 02:50 (Percocet 5-325 Mg) 1 tab Q6H PRN PO 07/24/17 09:30 08/03/17 13:46 (Advil) 200 mg Q6H PO 07/24/17 14:00 08/06/17 02:51 (Keppra) 500 mg Q12HR PO 07/24/17 21:00 08/05/17 20:54 (Zofran Odt) 4 mg Q6H PRN PO 07/25/17 02:30 07/26/17 05:25 (Phenergan) 25 mg Q6H PRN PO 07/25/17 11:15 07/25/17 22:27 (Ativan) 1 mg Q12H PRN PO 07/29/17 09:30 08/05/17 22:07 (Lasix) 20 mg DAILY PO 07/30/17 09:00 08/05/17 08:26 (Dilaudid Pf Inj) 0.5 mg Q6H PRN IV PUSH 07/30/17 21:30 08/06/17 04:07 (Coumadin) 7.5 mg DAILY@16 PO 08/05/17 16:00 08/05/17 15:39 Vital Signs / I&O Vital Signs Date Time Temp Pulse Resp B/P (MAP) Pulse Ox O2 Delivery O2 Flow Rate FiO2 08/06/17 04:00 60 08/06/17 04:00 98.0 60 18 108/49 (68) 99 08/06/17 04:00 Room Air 08/06/17 00:00 Room Air 08/06/17 00:00 98.0 59 18 99/44 (62) 96 08/06/17 00:00 60 08/05/17 20:00 Room Air 08/05/17 20:00 98.5 61 18 124/60 (81) 100 08/05/17 20:00 62 08/05/17 16:00 60 08/05/17 16:00 98.6 61 20 114/57 (76) 99 08/05/17 12:00 97.6 60 20 111/50 (70) 97 08/05/17 12:00 60 I/O 08/05/17 08/05/17 08/05/17 08/06/17 08/06/17 08/06/17 06:59 14:59 22:59 06:59 14:59 22:59 Intake Total 240 ml 600 ml 240 ml Output Total 3 ml Balance 240 ml 600 ml 237 ml Intake Oral 240 ml 600 ml 240 ml Output Urine Total 3 ml # Voids 2 4 # Bowel Movements 0 0 0 Physical Exam EYES: No scleral icterus. No injection or drainage. NECK: Supple, trachea midline. No JVD or lymphadenopathy. CARDIOVASCULAR: Regular rate and rhythm 2/6 SM mechanical click RESPIRATORY: Breath sounds equal bilaterally. No accessory muscle use. GASTROINTESTINAL: Abdomen soft, non-tender, nondistended. MUSCULOSKELETAL: No cyanosis, or edema. BACK: Nontender without obvious deformity. No CVA tenderness. Laboratory Laboratory Tests Test 08/06/17 07:00 Prothrombin Time 16.7 SEC Prothromb Time International Ratio 1.7 RATIO Assessment and Plan Assessment and Plan TAO today rule out vegetation NPO Keanu Lauren MD Aug 06, 2017 08:25
[2017-08-06] MEDS: SODIUM CHLORIDE 0.9% FLUSH 10 ML FLUSH IV FLUSH SCH ×2 (09:00→20:49)
[2017-08-06] MEDS: TOPIRAMATE 25 MG TAB PO SCH ×2 (09:12→20:40)
[2017-08-06] MEDS: METHOCARBAMOL 500 MG TAB PO SCH ×3 (09:12→17:29)
[2017-08-06] MEDS: ASPIRIN 81 MG CHEW TAB CHEW SCH (09:13)
[2017-08-06] MEDS: FERROUS SULFATE 325 MG (65 MG ELEMENTAL IRON) TAB PO SCH ×2 (09:13→17:28)
[2017-08-06] MEDS: METOPROLOL TARTRATE 25 MG TAB PO SCH ×2 (09:13→20:41)
[2017-08-06] MEDS: levETIRAcetam 500 MG TAB PO SCH ×2 (09:13→20:41)
[2017-08-06] MEDS: FLUoxetine HCL 20 MG CAP PO SCH (09:13)
[2017-08-06] MEDS: FUROSEMIDE 20 MG TAB PO SCH (09:13)
[2017-08-06] MEDS ORDERED: MIDAZOLAM HCL 2 MG/2 ML VIAL ONE (14:55)
--- NOTE | 2017-08-06 15:05 | HHI.PR ---
Subjective Remarks Early news is that patient does not have vegetations present on TAO. Her Coumadin is, unfortunately, subtherapeutic again. She has no complaints. Objective Vitals Vital Signs Date Time Temp Pulse Resp B/P (MAP) Pulse Ox O2 Delivery O2 Flow Rate FiO2 08/06/17 13:35 98.3 08/06/17 13:35 98.3 08/06/17 12:00 98.3 60 18 97/50 (66) 100 08/06/17 08:00 97.6 60 18 100/55 (70) 99 08/06/17 07:00 61 08/06/17 04:00 60 08/06/17 04:00 98.0 60 18 108/49 (68) 99 08/06/17 04:00 Room Air 08/06/17 00:00 Room Air 08/06/17 00:00 98.0 59 18 99/44 (62) 96 08/06/17 00:00 60 08/05/17 20:00 Room Air 08/05/17 20:00 98.5 61 18 124/60 (81) 100 08/05/17 20:00 62 08/05/17 16:00 60 08/05/17 16:00 98.6 61 20 114/57 (76) 99 I/O 08/05/17 08/05/17 08/05/17 08/06/17 08/06/17 08/06/17 07:00 15:00 23:00 07:00 15:00 23:00 Intake Total 240 ml 600 ml 240 ml Output Total 3 ml Balance 240 ml 600 ml 237 ml Intake Oral 240 ml 600 ml 240 ml Output Urine Total 3 ml # Voids 2 4 # Bowel Movements 0 0 0 Result Diagram: 08/04/17 0548 08/05/17 0635 Objective Remarks GENERAL: Well-nourished, well-developed patient. SKIN: Warm and dry. HEAD: Normocephalic. EYES: No scleral icterus. No injection or drainage. NECK: Supple, trachea midline. No JVD or lymphadenopathy. CARDIOVASCULAR: Regular rate and rhythm without murmurs, gallops, or rubs. RESPIRATORY: Lungs mostly clear with scattered crackles in right base. No accessory muscle use. GASTROINTESTINAL: Abdomen soft, non-tender, nondistended. EXTREMITIES: No cyanosis, or edema. NEUROLOGICAL: Awake, alert, and oriented x 3. Non-focal. A/P Problem List: (1) Sepsis ICD Code: A41.9 - Sepsis, unspecified organism Status: Acute (2) Pleural effusion ICD Code: J90 - Pleural effusion Status: Acute (3) Pneumonia ICD Code: J18.9 - Pneumonia, unspecified organism (4) Community acquired pneumonia ICD Code: J18.9 - Community acquired pneumonia Status: Acute Assessment and Plan 26-year-old female admitted secondary to pneumonia with sepsis,h/o IVDU, Coumadin is now theraputic Community-acquired pneumonia, sepsis Treatment with cefepime, vancomycin, azithromycin completed TAO reading pending Blood cultures show no growth Appreciate infectious disease consult Appreciate cardiology consult If TAO read negative, she can go home from a cardiac standpoint Congestive heart failure Chest x-ray shows cardiomegaly and right pleural effusion Ejection fraction 40-45% 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 Patient had redo Valve replacements in 2015 at [facility] Coumadin subtherapeutic again at INR 1.7 Baseline increased from 5mg to 7.5mg daily Additional doses of 7.5mg daily given yesterday and today, still not therapeutic Restart Heparin drip until therapeutic. Left hemiplegia Chronic, continue supportive care History of cirrhosis and ascites, hep C, SBP Small amount of fluid present on ultrasound of abdomen Lasix recommended for treatment h/o renal failure, seizures, intracranial abscess Continue Keppra and Topamax Chronic pain Percocet, Dilaudid, Robaxin Anxiety Ativan as needed DVT prophylaxis Coumadin, Heparin Obinna Gaona MD Aug 06, 2017 15:05
[2017-08-06] MEDS ORDERED: WARFARIN SOD 7.5 MG TAB PO ONE (16:00)
--- NOTE | 2017-08-06 16:07 | ECHRPT ---
Indication: Acute and subacute endocarditis, unspecified CONCLUSIONS Normal left ventricular size and wall thickness. The left ventricular systolic function is normal wi th an estimated ejection fraction in the range of 60-65%. Left ventricular diastolic function parameters a re normal. Normally functioning mechanical mitral valve prosthesis. Normally functioning mechanical tricuspid valve prosthesis. No vegetations BP: / HR: Rhythm: Technical Quality: Medications Complications Proc. Components The patient was brought to the diagnostic imaging area in a fasting state after o btaining an informed consent. The patient was premedicated with IV Versed and IV Fentanyl. The outside salesperson ior pharynx was sprayed with Cetacaine spray and the patient was administered viscous Xylocaine 2 %. The TAO probe was passed into the posterior pharynx , mid-esophagus, distal esophagus, and gastric fundus. TAO was performed at multiple levels. The patient tolerated the procedure well and there were no complications. The patient was transferred to the floor in satisfactory condition.. FINDINGS LEFT VENTRICLE Normal left ventricular size and wall thickness. The left ventricular systolic function is normal wi th an estimated ejection fraction in the range of 60-65%. Left ventricular diastolic function parameters a re normal. RIGHT VENTRICLE Normal right ventricular size and systolic function. LEFT ATRIUM The left atrial size is normal. RIGHT ATRIUM The right atrial size is normal. ATRIAL APPENDAGES Left atrial appendage not well visualized. ATRIAL SEPTUM Normal atrial septal thickness without atrial level shunting by limited color doppler interrogation. No atrial level shunt is demonstrated by color flow Doppler interrogation. AORTA The aortic root and proximal ascending aorta are normal in size on limited imaging. MITRAL VALVE Normally functioning mechanical mitral valve prosthesis. AORTIC VALVE Trileaflet aortic valve. No aortic valve stenosis or regurgitation. TRICUSPID VALVE Normally functioning mechanical tricuspid valve prosthesis. VESSELS The inferior vena cava is normal in size. PULMONARY VALVE The pulmonary valve is not well visualized. PERICADIUM No pericardial effusion. Keanu Lauren MD, FACC (Electronically Signed) Final Date:06 August 2017 15:48
[2017-08-06] MEDS: WARFARIN SOD 7.5 MG TAB PO SCH (17:29)
--- NOTE | 2017-08-06 18:36 | HHI.PR ---
Addendum to Inpatient Note Additional Information dw Dr Lauren: no e/o PVE on TAO wiill sign off Merlyn Gurrola MD Aug 06, 2017 18:36
[2017-08-07] VITALS (9 sets, daily range): BP systolic 104–134; BP diastolic 41–80; PULSE 59–88; RESP 16–20; TEMP 97.6–98.5; O2SAT 98–100
[2017-08-07] MEDS: oxyCODONE/ACETAMINOPHEN 10 MG/325 MG TAB PO PRN ×4 (00:45→22:19)
[2017-08-07] MEDS: IBUPROFEN 200 MG TAB PO SCH ×4 (00:46→19:49)
[2017-08-07] MEDS: HYDROmorphone HCL PF 2 MG/ML VIAL IV PUSH PRN ×3 (04:06→19:49)
[2017-08-07 05:47] LABS: HEMATOCRIT 34.8 % (35.0-46.0); HEMOGLOBIN 11.2 GM/DL (11.6-15.3); MEAN CELL VOLUME 87.2 FL (80.0-100.0); MEAN CORPUSCULAR HGB CONC 32.2 % (32.0-36.0); MEAN PLATELET VOLUME 8.1 FL (7.0-11.0); PLATELET COUNT 461 TH/MM3 (150-450); RED BLOOD COUNT 3.99 MIL/MM3 (4.00-5.30); RED CELL DISTRIBUTION WIDTH 16.9 % (11.6-17.2); WHITE BLOOD COUNT 10.3 TH/MM3 (4.0-11.0)
[2017-08-07 05:53] LABS: INTERNATIONAL NORMALIZED RATIO 1.6 RATIO; PROTHROMBIN TIME - PATIENT 16.6 SEC (9.8-11.6)
[2017-08-07 06:13] LABS: CREATININE 0.88 MG/DL (0.50-1.00)
--- NOTE | 2017-08-07 09:20 | HHI.PR ---
Subjective Remarks no fever or chills appears in no pain , denies any headaches states does not feel that great- but offered no specific complains d/w staff nurse- ask for IV pain RTC Objective Vitals Vital Signs Date Time Temp Pulse Resp B/P (MAP) Pulse Ox O2 Delivery O2 Flow Rate FiO2 08/07/17 04:19 98.3 63 20 129/80 (96) 100 08/07/17 04:00 60 08/07/17 01:06 Room Air 08/07/17 00:00 63 08/07/17 00:00 98.5 88 18 104/75 (85) 99 08/06/17 20:00 98.5 61 20 141/61 (87) 100 08/06/17 20:00 61 08/06/17 16:00 98.3 61 20 112/49 (70) 98 08/06/17 16:00 59 08/06/17 13:35 98.3 08/06/17 13:35 98.3 08/06/17 12:00 98.3 60 18 97/50 (66) 100 I/O 08/06/17 08/06/17 08/06/17 08/07/17 08/07/17 08/07/17 07:00 15:00 23:00 07:00 15:00 23:00 Intake Total 240 ml 240 ml Output Total 3 ml Balance 237 ml 240 ml Intake Oral 240 ml 240 ml Output Urine Total 3 ml # Voids 6 # Bowel Movements 0 0 Result Diagram: 08/07/17 0455 08/07/17 0455 Imaging Last Impressions Chest X-Ray 08/03/17 0000 Signed Impressions: CONCLUSION: Cardiomegaly with mild basilar airspace disease. Postoperative changes as above . Abdomen Ultrasound 07/28/17 0000 Signed Impressions: CONCLUSION: There is only a very small volume of free fluid present within the abdomen and pelvis, not enough for safe paracentesis. Additionally, the fluid volume has de creased compared to the study from [address] 07/24/17 1815 Signed Impressions: CONCLUSION: 1. Stable noncontrast head CT. No acute intracranial abnormality is identified . 2. There is stable right frontoparietal region encephalomalacia. CT Angiography 07/24/17 0000 Signed Impressions: CONCLUSION: 1. There is no evidence for pulmonary embolus. 2. Patchy parenchymal infiltrates in the lungs worse in the left upper lobe wi th a tiny right pleural effusion. Objective Remarks awake and alert, oriented x 3, speech clear anicteric lungs- no rales regular rhythm abdomen soft, good bowel sounds extremities no edema neuro exam- very very mild left sided weakness, gait stabel, grossly no sensory deficits, CN intact Procedures /- TAO- no vegetatins A/P Problem List: (1) Sepsis ICD Code: A41.9 - Sepsis, unspecified organism Status: Acute (2) Pleural effusion ICD Code: J90 - Pleural effusion Status: Acute (3) Pneumonia ICD Code: J18.9 - Pneumonia, unspecified organism (4) Community acquired pneumonia ICD Code: J18.9 - Community acquired pneumonia Status: Acute Assessment and Plan 26-year-old female admitted secondary to pneumonia with sepsis,h/o IVDU, Coumadin is now theraputic Community-acquired pneumonia, sepsis S/P Treatment with cefepime, vancomycin, azithromycin completed TAO- no vegetation Blood cultures show no growth Appreciate infectious disease consult Appreciate cardiology consult Congestive heart failure- clinically not in failure Chest x-ray shows cardiomegaly and right pleural effusion Ejection fraction 40-45% 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 Patient had redo Valve replacements in 2015 at [facility] Coumadin subtherapeutic again at INR 1.6- give total 10 mg today Baseline increased from 5mg to 7.5mg daily Restart Heparin drip until therapeutic. MIld left hemiparesis Chronic, continue supportive care - patient up anf ambulating independently History of cirrhosis and ascites, hep C, SBP Small amount of fluid present on ultrasound of abdomen Lasix recommended for treatment h/o renal failure, seizures, intracranial abscess Continue Keppra and Topamax Chronic pain Percocet, Dilaudid, Robaxin Anxiety Ativan as needed DVT prophylaxis Coumadin, Heparin Laura Ching MD Aug 07, 2017 09:20
[2017-08-07] MEDS: TOPIRAMATE 25 MG TAB PO SCH ×2 (09:21→19:48)
[2017-08-07] MEDS: SODIUM CHLORIDE 0.9% FLUSH 10 ML FLUSH IV FLUSH SCH ×2 (09:21→19:49)
[2017-08-07] MEDS: METOPROLOL TARTRATE 25 MG TAB PO SCH ×2 (09:22→19:48)
[2017-08-07] MEDS: levETIRAcetam 500 MG TAB PO SCH ×2 (09:22→19:48)
[2017-08-07] MEDS: FERROUS SULFATE 325 MG (65 MG ELEMENTAL IRON) TAB PO SCH ×2 (09:22→17:03)
[2017-08-07] MEDS: METHOCARBAMOL 500 MG TAB PO SCH ×3 (09:22→17:02)
[2017-08-07] MEDS: ASPIRIN 81 MG CHEW TAB CHEW SCH (09:23)
[2017-08-07] MEDS: FLUoxetine HCL 20 MG CAP PO SCH (09:23)
[2017-08-07] MEDS: FUROSEMIDE 20 MG TAB PO SCH (09:23)
[2017-08-07] MEDS ORDERED: LORA-474 PO (10:27)
[2017-08-07] MEDS: LORazepam 1 MG TAB PO PRN (11:12)
[2017-08-07] MEDS ORDERED: WARFARIN SOD 2.5 MG TAB PO ONE (16:00)
[2017-08-07] MEDS: WARFARIN SOD 7.5 MG TAB PO SCH (16:25)
[2017-08-08] VITALS (9 sets, daily range): BP systolic 106–145; BP diastolic 42–73; PULSE 53–63; RESP 16–18; TEMP 97.8–98.7; O2SAT 96–99
[2017-08-08] MEDS: LORazepam 1 MG TAB PO PRN (02:00)
[2017-08-08] MEDS: IBUPROFEN 200 MG TAB PO SCH (02:04)
[2017-08-08] MEDS: HYDROmorphone HCL PF 2 MG/ML VIAL IV PUSH PRN ×4 (02:04→21:23)
[2017-08-08] MEDS: oxyCODONE/ACETAMINOPHEN 10 MG/325 MG TAB PO PRN (04:28)
[2017-08-08 06:58] LABS: INTERNATIONAL NORMALIZED RATIO 1.7 RATIO; PROTHROMBIN TIME - PATIENT 17.5 SEC (9.8-11.6)
[2017-08-08] MEDS: SODIUM CHLORIDE 0.9% FLUSH 10 ML FLUSH IV FLUSH SCH ×2 (08:06→20:45)
[2017-08-08] MEDS: TOPIRAMATE 25 MG TAB PO SCH ×2 (08:06→20:44)
[2017-08-08] MEDS: ASPIRIN 81 MG CHEW TAB CHEW SCH (08:07)
[2017-08-08] MEDS: METHOCARBAMOL 500 MG TAB PO SCH ×3 (08:07→18:34)
[2017-08-08] MEDS: levETIRAcetam 500 MG TAB PO SCH ×2 (08:07→20:44)
[2017-08-08] MEDS: FERROUS SULFATE 325 MG (65 MG ELEMENTAL IRON) TAB PO SCH ×2 (08:07→18:34)
[2017-08-08] MEDS: FLUoxetine HCL 20 MG CAP PO SCH (08:08)
[2017-08-08] MEDS: FUROSEMIDE 20 MG TAB PO SCH (08:08)
[2017-08-08] MEDS: METOPROLOL TARTRATE 25 MG TAB PO SCH ×2 (08:08→20:44)
--- NOTE | 2017-08-08 09:34 | HHI.PR ---
Subjective Remarks no complains of nausea or vomiting denies anydiarrhea, formed stools just "tired" Objective Vitals Vital Signs Date Time Temp Pulse Resp B/P (MAP) Pulse Ox O2 Delivery O2 Flow Rate FiO2 08/08/17 08:00 97.9 62 16 129/42 (71) 98 08/08/17 05:21 61 08/08/17 04:00 98.1 62 16 106/52 (70) 97 08/08/17 00:00 98.7 60 16 118/51 (73) 96 08/08/17 00:00 60 08/07/17 22:00 Room Air 08/07/17 20:00 62 08/07/17 20:00 98.4 59 16 114/47 (69) 99 08/07/17 16:00 97.9 61 18 116/41 (66) 100 08/07/17 12:00 97.6 60 16 112/47 (68) 98 08/07/17 11:45 60 I/O 08/07/17 08/07/17 08/07/17 08/08/17 08/08/17 08/08/17 07:00 15:00 23:00 07:00 15:00 23:00 Intake Total 240 ml 480 ml Balance 240 ml 480 ml Intake Oral 240 ml 480 ml # Voids 6 4 6 # Bowel Movements 0 0 0 Result Diagram: 08/07/17 0455 08/07/17 0455 Imaging Last Impressions Chest X-Ray 08/03/17 0000 Signed Impressions: CONCLUSION: Cardiomegaly with mild basilar airspace disease. Postoperative changes as above . Abdomen Ultrasound 07/28/17 0000 Signed Impressions: CONCLUSION: There is only a very small volume of free fluid present within the abdomen and pelvis, not enough for safe paracentesis. Additionally, the fluid volume has de creased compared to the study from [address] 07/24/17 1815 Signed Impressions: CONCLUSION: 1. Stable noncontrast head CT. No acute intracranial abnormality is identified . 2. There is stable right frontoparietal region encephalomalacia. CT Angiography 07/24/17 0000 Signed Impressions: CONCLUSION: 1. There is no evidence for pulmonary embolus. 2. Patchy parenchymal infiltrates in the lungs worse in the left upper lobe wi th a tiny right pleural effusion. Objective Remarks awake and alert, oriented x 3, speech clear anicteric lungs- no rales regular rhythm abdomen soft, good bowel sounds extremities no edema neuro exam- very very mild left sided weakness, gait stable, grossly no sensory deficits, CN intact Procedures - TAO- no vegetations A/P Problem List: (1) Sepsis ICD Code: A41.9 - Sepsis, unspecified organism Status: Acute (2) Pleural effusion ICD Code: J90 - Pleural effusion Status: Acute (3) Pneumonia ICD Code: J18.9 - Pneumonia, unspecified organism (4) Community acquired pneumonia ICD Code: J18.9 - Community acquired pneumonia Status: Acute Assessment and Plan 26-year-old female admitted secondary to pneumonia with sepsis,h/o IVDU, Coumadin is now theraputic Community-acquired pneumonia, sepsis S/P Treatment with cefepime, vancomycin, azithromycin completed TAO- no vegetation Blood cultures show no growth Congestive heart failure- clinically not in failure Chest x-ray shows cardiomegaly and right pleural effusion Ejection fraction 40-45% contnue Laix 20 mg daily, Lisinorpil 2.5 mg po daily 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 Patient had redo Valve replacements in 2016 at [facility] Heparin drip till INR therapeutic Coumadin 10 mg daily states her PCP- in [place] has a INR machine and gets INR check there MIld left hemiparesis Chronic, continue supportive care - patient up anf ambulating independently History of cirrhosis and ascites, hep C, SBP Small amount of fluid present on ultrasound of abdomen Lasix recommended for treatment h/o renal failure, seizures, intracranial abscess Continue Keppra and Topamax Chronic pain Percocet, Dilaudid, Robaxin Anxiety Ativan as needed DVT prophylaxis Coumadin, Heparin per patient- PCP in [facility]- Laura Blanco MD (dizon) Aug 08, 2017 09:34
[2017-08-08] MEDS: PANTOPRAZOLE SOD 20 MG DELAYED RELEASE TAB PO SCH (10:08)
[2017-08-08] MEDS: oxyCODONE/ACETAMINOPHEN 7.5 MG/325 MG TAB PO PRN (11:57)
[2017-08-08] MEDS ORDERED: IBUPROFEN 200 MG TAB PO PRN (14:00)
[2017-08-08] MEDS ORDERED: WARFARIN SOD 10 MG TAB PO SCH (16:00)
[2017-08-09] VITALS: BP 125/51; PULSE 60; RESP 18; TEMP 97.9; O2SAT 98
[2017-08-09] MEDS: oxyCODONE/ACETAMINOPHEN 7.5 MG/325 MG TAB PO PRN ×2 (00:20→06:49)
[2017-08-09] MEDS: HYDROmorphone HCL PF 2 MG/ML VIAL IV PUSH PRN ×2 (03:24→09:28)
[2017-08-09 04:00] VITALS: BP 113/44; PULSE 62; RESP 18; TEMP 97.9; O2SAT 97
[2017-08-09 08:00] VITALS: BP 114/53; PULSE 61; PULSE 62; RESP 16; TEMP 97.9; O2SAT 99
--- NOTE | 2017-08-09 08:31 | HHI.PR ---
Subjective Remarks seen with boyfriend in the room no complains looking forward to going home patient states- - gets dyllan meds from a PCP in [place] Objective Vitals Vital Signs Date Time Temp Pulse Resp B/P (MAP) Pulse Ox O2 Delivery O2 Flow Rate FiO2 08/09/17 04:00 97.9 62 18 113/44 (67) 97 08/09/17 04:00 62 08/09/17 01:20 18 08/09/17 00:00 97.9 60 18 125/51 (75) 98 08/09/17 00:00 60 08/08/17 21:53 18 08/08/17 20:00 60 08/08/17 20:00 98.4 60 18 144/66 (92) 98 08/08/17 20:00 98 Room Air 08/08/17 16:00 97.9 63 17 145/73 (97) 99 08/08/17 12:00 97.8 60 18 115/51 (72) 98 08/08/17 11:33 53 I/O 08/08/17 08/08/17 08/08/17 08/09/17 08/09/17 08/09/17 07:00 15:00 23:00 07:00 15:00 23:00 Intake Total 275 ml 720 ml Balance 275 ml 720 ml Intake Oral 275 ml 720 ml # Voids 6 7 4 # Bowel Movements 0 1 0 Result Diagram: 08/07/17 0455 08/07/17 0455 Imaging Last Impressions Chest X-Ray 08/03/17 0000 Signed Impressions: CONCLUSION: Cardiomegaly with mild basilar airspace disease. Postoperative changes as above . Abdomen Ultrasound 07/28/17 0000 Signed Impressions: CONCLUSION: There is only a very small volume of free fluid present within the abdomen and pelvis, not enough for safe paracentesis. Additionally, the fluid volume has de creased compared to the study from [address] 07/24/17 1815 Signed Impressions: CONCLUSION: 1. Stable noncontrast head CT. No acute intracranial abnormality is identified . 2. There is stable right frontoparietal region encephalomalacia. CT Angiography 07/24/17 0000 Signed Impressions: CONCLUSION: 1. There is no evidence for pulmonary embolus. 2. Patchy parenchymal infiltrates in the lungs worse in the left upper lobe wi th a tiny right pleural effusion. Objective Remarks awake and alert, oriented x 3, speech clear anicteric lungs- no rales regular rhythm abdomen soft, good bowel sounds extremities no edema neuro exam- very very mild left sided weakness, gait stable, grossly no sensory deficits, CN intact Procedures - TAO- no vegetations A/P Problem List: (1) Sepsis ICD Code: A41.9 - Sepsis, unspecified organism Status: Acute (2) Pleural effusion ICD Code: J90 - Pleural effusion Status: Acute (3) Pneumonia ICD Code: J18.9 - Pneumonia, unspecified organism (4) Community acquired pneumonia ICD Code: J18.9 - Community acquired pneumonia Status: Acute Assessment and Plan 26-year-old female admitted secondary to pneumonia with sepsis,h/o IVDU, Coumadin is now theraputic Community-acquired pneumonia, sepsis S/P Treatment with cefepime, vancomycin, azithromycin completed TAO- no vegetation Blood cultures show no growth Congestive heart failure- clinically not in failure Chest x-ray shows cardiomegaly and right pleural effusion Ejection fraction 40-45% continue on Lasix and MARISSA 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 Patient had redo Valve replacements in 2016 at [facility] Heparin drip till INR therapeutic Coumadin 10 mg daily states her PCP- in [place] has a INR machine and gets INR check there DC if INR therapeutic MIld left hemiparesis Chronic, continue supportive care - patient up anf ambulating independently History of cirrhosis and ascites, hep C, SBP Small amount of fluid present on ultrasound of abdomen h/o renal failure, seizures, intracranial abscess Continue Keppra and Topamax Chronic pain Percocet, Dilaudid, Robaxin Anxiety Ativan as needed DVT prophylaxis Coumadin, Heparin per patient- PCP in [facility]- Dr. Wallace" DC today if INR therapeutic Laura Ching MD Aug 09, 2017 08:31
[2017-08-09 08:54] LABS: INTERNATIONAL NORMALIZED RATIO 2.5 RATIO; PROTHROMBIN TIME - PATIENT 25.2 SEC (9.8-11.6)
[2017-08-09] MEDS: METOPROLOL TARTRATE 25 MG TAB PO SCH (09:28)
[2017-08-09] MEDS: FERROUS SULFATE 325 MG (65 MG ELEMENTAL IRON) TAB PO SCH (09:28)
[2017-08-09] MEDS: PANTOPRAZOLE SOD 20 MG DELAYED RELEASE TAB PO SCH (09:28)
[2017-08-09] MEDS: FUROSEMIDE 20 MG TAB PO SCH (09:28)
[2017-08-09] MEDS: METHOCARBAMOL 500 MG TAB PO SCH (09:28)
[2017-08-09] MEDS: TOPIRAMATE 25 MG TAB PO SCH (09:28)
[2017-08-09] MEDS: ASPIRIN 81 MG CHEW TAB CHEW SCH (09:28)
[2017-08-09] MEDS: FLUoxetine HCL 20 MG CAP PO SCH (09:28)
[2017-08-09] MEDS: levETIRAcetam 500 MG TAB PO SCH (09:29)
[2017-08-09] MEDS: SODIUM CHLORIDE 0.9% FLUSH 10 ML FLUSH IV FLUSH SCH (09:32)
[2017-08-09] MEDS ORDERED: OXYC1TAB35 PO (10:09)
[2017-08-09] MEDS ORDERED: PANT20 PO (10:09)
[2017-08-09] MEDS ORDERED: LEVE500 PO (10:09)
[2017-08-09] MEDS ORDERED: COUM7.5T PO (10:14)
--- NOTE | 2017-08-09 10:21 | HHI.DS ---
Discharge Summary Admission Date July 24, 2017 at 05:17 Discharge Date: Aug 09, 2017 Admitting Diagnosis sepsis; pneumonia; seizure d/o; cephalgia (1) Sepsis ICD Code: A41.9 - Sepsis, unspecified organism Status: Acute (2) Pleural effusion ICD Code: J90 - Pleural effusion Status: Acute (3) Pneumonia ICD Code: J18.9 - Pneumonia, unspecified organism (4) Community acquired pneumonia ICD Code: J18.9 - Community acquired pneumonia Status: Acute Procedures - TAO- no vegetations Brief History - From Admission Mrs. Bazan is a 26-year-old female. She has a past history of infective endocarditis in 2010. Related to her past history of IV drug abuse and the infective endocarditis she has had mitral valve and tricuspid valve replacements. 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 She has seizure disorder and cirrhosis. She comes to the hospital with 3 day complaint of progressive malaise and onset of fever and cough. She also says she has been having some chest pains with deep breathing and headache. Workup shows that she has evidence for left upper lobe pneumonia with possible patchy infiltrates bilaterally. She has a fever, tachycardia, tachypnea, and leukocytosis, meeting criteria for sepsis. No lactic acidosis or evidence of organ failure. No other complaints today. CBC/BMP: 08/07/17 0455 08/07/17 0455 Significant Findings Laboratory Tests Test 08/07/17 04:55 08/08/17 04:27 08/09/17 07:55 Red Blood Count 3.99 MIL/MM3 (4.00-5.30) Hemoglobin 11.2 GM/DL (11.6-15.3) Hematocrit 34.8 % (35.0-46.0) Platelet Count 461 TH/MM3 (150-450) Prothrombin Time 16.6 SEC (9.8-11.6) 17.5 SEC (9.8-11.6) 25.2 SEC (9.8-11.6) Estimat Glomerular Filtration Rate 77 ML/MIN (>89) Imaging Last Impressions Chest X-Ray 08/03/17 0000 Signed Impressions: CONCLUSION: Cardiomegaly with mild basilar airspace disease. Postoperative changes as above . Abdomen Ultrasound 07/28/17 0000 Signed Impressions: CONCLUSION: There is only a very small volume of free fluid present within the abdomen and pelvis, not enough for safe paracentesis. Additionally, the fluid volume has de creased compared to the study from [address] 07/24/17 1815 Signed Impressions: CONCLUSION: 1. Stable noncontrast head CT. No acute intracranial abnormality is identified . 2. There is stable right frontoparietal region encephalomalacia. CT Angiography 07/24/17 0000 Signed Impressions: CONCLUSION: 1. There is no evidence for pulmonary embolus. 2. Patchy parenchymal infiltrates in the lungs worse in the left upper lobe wi th a tiny right pleural effusion. PE at Discharge awake and alert, oriented x 3, speech clear anicteric lungs- no rales regular rhythm abdomen soft, good bowel sounds extremities no edema neuro exam- very very mild left sided weakness, gait stable, grossly no sensory deficits, CN intact Pt update on day of discharge rile comfortable no complains reinforced INR monitoring and OP ff up Pt Condition on Discharge: Stable Discharge Disposition: Discharge Home Discharge Instructions DIET: Follow Instructions for: Heart Healthy Diet, Coumadin (Warfarin) Diet Activities you can perform: Weight Bearing as Reza Follow up Referrals: PCP Follow-up - 08/11/17 with PCPMehran New Orders: PT/INR - 08/11/17 New Medications: Warfarin (Coumadin) 7.5 Mg Tab 7.5 MG PO DAILY@1600 for Prevent Blood Clot, #30 TAB 0 Refills Furosemide (Furosemide) 20 Mg Tab 20 MG PO DAILY for CMP for 30 Days, #30 TAB Levetiracetam (Keppra) 500 Mg Tab 500 MG PO Q12HR for SZ for 30 Days, #60 TAB 2 Refills Lisinopril (Lisinopril) 5 Mg Tab 2.5 MG PO DAILY for CMP for 30 Days, #15 TAB Oxycodone HCl/Acetaminophen (Oxycodon-Acetaminophen 7.5-325) 7.5 Mg-325 Mg Tablet 1 TAB PO Q8HR PRN for PAIN SCALE 4 TO 10, #15 TAB 1 tab po q 8 prn for pain Pantoprazole (Protonix) 20 Mg Tab 20 MG PO DAILY for GIprop for 30 Days, #30 TAB Continued Medications: Aspirin (Aspirin Low Dose) 81 Mg Chew 81 MG CHEW DAILY, TAB 0 Refills Ferrous Sulfate (Ferrous Sulfate) 325 Mg (65 Mg Iron) Tablet 325 MG PO BIDPC for Nutritional Supplement, #60 TAB 0 Refills Methocarbamol (Methocarbamol) 500 Mg Tab 500 MG PO TID Metoprolol Tartrate (Metoprolol Tartrate) 25 Mg Tab 12.5 MG PO BID, #60 TAB 0 Refills Topiramate (Topamax) 50 Mg Tab 50 MG PO BID for Control Seizures, #60 TAB 0 Refills Discontinued Medications: Lisinopril (Lisinopril) 20 Mg Tab 20 MG PO DAILY, #30 TAB 0 Refills Lorazepam (Ativan) 1 Mg Tab 1 MG PO BID PRN for ANXIETY AND/OR AGITATION, TAB 0 Refills Oxycodone-Acetaminophen (Oxycodone-Acetaminophen) 10-325 mg Tab 1 TAB PO TID PRN for PAIN, TAB 0 Refills Laura Ching MD Aug 09, 2017 10:21
[2017-08-09] MEDS ORDERED: FURO20TA PO (10:44)
[2017-08-09] MEDS ORDERED: LISI-519 PO (10:44)
[2017-08-09] MEDS ORDERED: PILL SPLITTER OTHER PRN (11:00)
[2017-08-09] MEDS ORDERED: LISINOPRIL 5 MG TAB PO SCH (11:00)
== END 2017-08-09 11:36 | disposition home or self-care (01) | DRG 871 ==
LOC: NEPC 01:11 → NEDA 05:17 → N04A 12:44
PROVIDERS: ADMIT Internal Medicine; ATTEND Internal Medicine
DX: A41.9 Sepsis, unspecified organism (principal); J18.9 Pneumonia, unspecified organism; R18.8 Other ascites; I42.9 Cardiomyopathy, unspecified; I50.9 Heart failure, unspecified; I69.354 Hemiplegia and hemiparesis following cerebral infarction affecting left non-dominant side; G89.29 Other chronic pain; B19.20 Unspecified viral hepatitis C without hepatic coma; F19.11 Other psychoactive substance abuse, in remission; R51 Headache; F41.9 Anxiety disorder, unspecified; G40.909 Epilepsy, unspecified, not intractable, without status epilepticus; I51.7 Cardiomegaly; Z95.2 Presence of prosthetic heart valve; Z95.0 Presence of cardiac pacemaker; Z79.01 Long term (current) use of anticoagulants; Z79.82 Long term (current) use of aspirin; Z79.891 Long term (current) use of opiate analgesic; Z79.899 Other long term (current) drug therapy; Z88.5 Allergy status to narcotic agent; Z88.8 Allergy status to other drugs, medicaments and biological substances
CPT/HCPCS: 70450; 71045; 71275; 76705; 76937; 80048; 80053; 80202; 80307; 81001; 82140; 82550; 82565; 83036; 83605; 83615; 83735; 83880; 84100; 84155; 84439; 84443; 84484; 84703; 85025; 85027; 85610; 85730; 87040; 93005; 93308; 93312; 93320; 93325; 96361; 96365; 96375; J0456; J0692; J1170; J1644; J1940; J2250; J3370; J7030; J7050; Q0169; Q9967

== ENCOUNTER 2017-08-14 09:28 | Emergency (ER) | payer MEDICAID ==
[~2017-08-14] VITALS: Ht 152.4 cm; Wt 65.0 kg
[~2017-08-14 09:28] MED LIST changes: +COUM7.5T PO; -ENOX100P SQ; +FURO20TA PO; +LEVE500 PO; -LISI-515 PO; +LISI-519 PO; +OXYC1TAB35 PO; -OXYC1TAB36 PO; +PANT20 PO; -SPIR25 PO
[2017-08-14] MEDS ORDERED: IOHEXOL 350 MG/ML 10 ML VIAL (for RAD DIAG) IVCONTRAST ONE (09:29)
[2017-08-14 09:36] VITALS: BP 116/58; PULSE 87; RESP 16; TEMP 98.5; O2SAT 96
[2017-08-14 09:52] VITALS: BP 109/58; PULSE 79; RESP 16; O2SAT 95
--- NOTE | 2017-08-14 10:00 | PD ---
HPI . Seizure Chief Complaint: Chest Pain Time Seen by Provider: 09:34 Travel History International Travel<30 days: No Contact w/Intl Traveler<30days: No Traveled to known affect area: No History of Present Illness HPI This patient was brought to us by EVAC following a seizure at work. She reportedly fell and struck the back of her head as a result of the seizure. EVAC reports that she was oriented 2 on their arrival at the scene. Her mental status has slowly improved to baseline. This patient does have a history of a seizure disorder secondary to a previous hemorrhagic stroke. She states that she takes Topamax for her seizures and that she has been compliant. In addition, the patient is complaining with chest pain. Onset of that was yesterday. She states that the pain radiates through to her back. She denies difficulty breathing. No modifying factors. Pain rated 8/10. PFSH Past Medical History Hx Anticoagulant Therapy: Yes (Lovenox) ADHD: No Autoimmune Disease: No Blood Disorders: No Bipolar Disorder: Yes Anxiety: Yes (takes prozac) Depression: Yes Heart Rhythm Problems: Yes (afib) Cancer: No Cardiovascular Problems: Yes (open heart SX, pacemaker) High Cholesterol: No Chemotherapy: No Chest Pain: Yes Congestive Heart Failure: No Cerebrovascular Accident: Yes (PT STATES SHE'S HAD TWO STROKES W/ L SIDE WEAKNESS COMPLICATION) Diabetes: No Diminished Hearing: No Deep Vein Thrombosis: Yes (arm; pulmonary embolism-R lung; ) Endocrine: No Gastrointestinal Disorders: Yes (ASCITES SEPTEMBER 2013) GERD: Yes Genitourinary: No Hypertension: No Immune Disorder: No Implanted Vascular Access Dvce: Yes (ARTIFICIAL HEART VALVES) Musculoskeletal: Yes Neurologic: Yes Psychiatric: Yes Reproductive: No Respiratory: No Integumentary: Yes Immunizations Current: Yes Migraines: Yes Seizures: Yes Sickle Cell Disease: No Thyroid Disease: No Ulcer: No ?: Not LMP: 08/14/17 : 1 Para: 1 Ectopic : No Ovarian Cysts: Yes (ovarian torsion ) Dilation and Curettage (D&C): No Tubal Ligation: No Past Surgical History Abdominal Surgery: Yes Appendectomy: Yes Body Medical Devices: 2 mechanical valves Cardiac Surgery: Yes (Pacemaker ) Section: Yes Cholecystectomy: Yes Ear Surgery: No Endocrine Surgery: No Eye Surgery: No Genitourinary Surgery: Yes Gynecologic Surgery: Yes ( at age 17) Hysterectomy: Yes Neurologic Surgery: No Oral Surgery: Yes (WISDOM) Pacemaker: Yes Thoracic Surgery: No Valve Replacement: Yes (MITRAL & TRICUSPID) Other Surgery: Yes (left sided facial sx @age 2) Social History Alcohol Use: No Tobacco Use: No Substance Use: Yes (Marijuana occ.) Allergies-Medications (Allergen,Severity, Reaction): Coded Allergies: Fish Containing Products (Unverified Allergy, Severe, THROAT SWOLLEN/HIVES , 07/24/17) codeine (Unverified Allergy, Severe, HIVES/VOMITING, 07/24/17) gabapentin (Unverified Allergy, Severe, Hives, 07/24/17) morphine (Unverified Allergy, Severe, Hives, 07/24/17) naproxen (Unverified Allergy, Severe, Hives, 07/24/17) piperacillin (Verified Allergy, Severe, Hives, 07/24/17) tazobactam (Verified Allergy, Severe, Hives, 07/24/17) Reported Meds & Prescriptions Reported Meds & Active Scripts Active Furosemide 20 Mg Tab 20 Mg PO DAILY 30 Days Lisinopril 5 Mg Tab 2.5 Mg PO DAILY 30 Days Coumadin (Warfarin) 7.5 Mg Tab 7.5 Mg PO DAILY@1600 Protonix (Pantoprazole Sodium) 20 Mg Tab 20 Mg PO DAILY 30 Days Keppra (Levetiracetam) 500 Mg Tab 500 Mg PO Q12HR 30 Days Oxycodon-Acetaminophen 7.5-325 (Oxycodone HCl/Acetaminophen) 7.5 Mg-325 Mg Tablet 1 Tab PO Q8HR PRN 1 tab po q 8 prn for pain Reported Ferrous Sulfate 325 Mg (65 Mg Iron) Tablet 325 Mg PO BIDPC Coumadin (Warfarin) 5 Mg Tab 5 Mg PO DAILY Metoprolol Tartrate 25 Mg Tab 12.5 Mg PO BID Methocarbamol 500 Mg Tab 500 Mg PO TID Topamax (Topiramate) 50 Mg Tab 50 Mg PO BID Aspirin Low Dose (Aspirin) 81 Mg Chew 81 Mg CHEW DAILY Prozac (Fluoxetine HCl) 10 Mg Cap 20 Mg PO DAILY Review of Systems Except as stated in HPI: all other systems reviewed are Neg General / Constitutional: No: Fever, Chills Cardiovascular: Positive: Chest Pain or Discomfort Respiratory: No: Cough, Shortness of Breath Gastrointestinal: No: Nausea, Vomiting, Diarrhea Neurologic: Positive: Focal Abnormalities, Seizures Physical Exam Narrative GENERAL: Patient is currently awake and alert. SKIN: warm/dry. HEAD: Normocephalic. No obvious evidence of trauma to her head. EYES: Pupils equal and round. Extraocular movements are intact. ENT: Mucous membranes pink and moist. NECK: Supple. Full range of motion without pain. Nontender. CARDIOVASCULAR: Regular rate and rhythm. Heart sounds are normal. RESPIRATORY: No accessory muscle use. Clear to auscultation. Breath sounds equal bilaterally. GASTROINTESTINAL: Abdomen soft. Nontender. Bowel sounds present. Nondistended. MUSCULOSKELETAL: No obvious deformities. Normal muscle tone. NEUROLOGICAL: Awake and alert. No obvious cranial nerve deficits. Motor grossly within normal limits. Normal speech. PSYCHIATRIC: Appropriate mood and affect; insight and judgment normal. Data Data Last Documented VS Vital Signs Date Time Temp Pulse Resp B/P (MAP) Pulse Ox O2 Delivery O2 Flow Rate FiO2 08/14/17 09:52 79 16 109/58 (75) 95 Room Air 08/14/17 09:36 98.5 Orders Orders Electrocardiogram (08/14/17 09:46) Basic Metabolic Panel (Bmp) (08/14/17 09:46) Complete Blood Count With Diff (08/14/17 09:46) Magnesium (Mg) (08/14/17 09:46) Troponin I (08/14/17 09:46) Ecg Monitoring (08/14/17 09:46) Iv Access Insert/Monitor (08/14/17 09:46) Oximetry (08/14/17 09:46) Ct Pulmonary Angiogram (08/14/17 09:46) Blood Culture (08/14/17 09:46) Ct Brain W/O Iv Contrast(Rout) (08/14/17 ) Vascular Access Team Consult/P PRN (08/14/17 10:39) Vascular Poc Ultrasound (08/14/17 ) Iohexol 350 Inj (Omnipaque 350 Inj) (08/14/17 09:29) Labs Laboratory Tests Test 08/14/17 09:55 White Blood Count 12.3 TH/MM3 Red Blood Count 3.72 MIL/MM3 Hemoglobin 10.5 GM/DL Hematocrit 32.5 % Mean Corpuscular Volume 87.3 FL Mean Corpuscular Hemoglobin 28.2 PG Mean Corpuscular Hemoglobin Concent 32.3 % Red Cell Distribution Width 16.8 % Platelet Count 296 TH/MM3 Mean Platelet Volume 8.4 FL Neutrophils (%) (Auto) 64.9 % Lymphocytes (%) (Auto) 20.3 % Monocytes (%) (Auto) 10.4 % Eosinophils (%) (Auto) 3.2 % Basophils (%) (Auto) 1.2 % Neutrophils # (Auto) 8.0 TH/MM3 Lymphocytes # (Auto) 2.5 TH/MM3 Monocytes # (Auto) 1.3 TH/MM3 Eosinophils # (Auto) 0.4 TH/MM3 Basophils # (Auto) 0.2 TH/MM3 CBC Comment DIFF FINAL Differential Comment Blood Urea Nitrogen 16 MG/DL Creatinine 0.66 MG/DL Random Glucose 88 MG/DL Calcium Level 8.5 MG/DL Magnesium Level 2.2 MG/DL Sodium Level 139 MEQ/L Potassium Level 3.8 MEQ/L Chloride Level 105 MEQ/L Carbon Dioxide Level 26.5 MEQ/L Anion Gap 8 MEQ/L Estimat Glomerular Filtration Rate 107 ML/MIN Troponin I LESS THAN 0.02 NG/ML MDM Medical Decision Making Medical Screen Exam Complete: Yes Emergency Medical Condition: Yes Medical Record Reviewed: Yes (This patient has significant past medical problems. She was admitted to the hospital 07/24-08/09 for sepsis and pneumonia. 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 She has had both mitral and tricuspid valve replacements. She did have a negative TAO during her recent hospitalization. She has also had a previous hemorrhagic stroke which has left her with some mild left-sided hemiparesis. She has resultant seizure disorder. She further has cirrhosis of the liver.) Interpretation(s) EKG shows a normal sinus rhythm. She has inverted T waves in V1 and V2 and a flat T-wave in V3. The EKG is unchanged from previous. Differential Diagnosis Differential diagnosis of seizure includes but is not limited to epilepsy, electrolyte abnormality, previous stroke, closed head injury Differential diagnosis of chest pain includes but is not limited to musculoskeletal pain, pulmonary embolism, acute coronary syndrome, pneumonia, pleurisy Narrative Course This patient presents here with a couple of problems. Her chief complaint is seizure. She has a history of seizure secondary to an old stroke. She fell and hit her head at the time of the seizure. CT of the head is in process. In addition, she is complaining with some chest pain. She has had a recent hospitalization. The diagnosis of a PE must be considered. She has also had recent pneumonia and previous endocarditis. I have ordered a CT for PE. We should be able to see a pneumonia on that study. Plain films of the chest have not been ordered. CBC & BMP Diagram 08/14/17 09:55 Calcium Level 8.5, Magnesium Level 2.2 trop < 0.[address] Angiography 08/14/17 0946 Signed Impressions: CONCLUSION: 1. No evidence of pulmonary emboli. 2. Small right pleural effusion again noted. 3. Mild groundglass opacities in the lung bases. 4. Status post median sternotomy with artificial heart valves and cardiomegaly . Head CT 08/14/17 0000 Signed Impressions: CONCLUSION: 1. Stable appearance with no acute hemorrhage or mass effect. 2. Stable area of encephalomalacia involving the right parietal lobe. Diagnosis Primary Impression: Seizure disorder Additional Impressions: Scalp contusion Qualified Codes: S00.03XA - Contusion of scalp, initial encounter Chest pain Qualified Codes: R07.9 - Chest pain, unspecified Patient Instructions: General Instructions, Recurrent Seizures in Adults (DC) Disposition: 01 DISCHARGE HOME Condition: Stable Yola Cabrera MD Aug 14, 2017 09:59
[2017-08-14 10:18] LABS: BASOPHIL # 0.2 TH/MM3 (0-0.2); BASOPHIL % 1.2 % (0.0-2.0); EOSINOPHIL # 0.4 TH/MM3 (0-0.4); EOSINOPHIL % 3.2 % (0.0-4.0); HEMATOCRIT 32.5 % (35.0-46.0); HEMOGLOBIN 10.5 GM/DL (11.6-15.3); LYMPH % 20.3 % (9.0-44.0); LYMPHOCYTE # 2.5 TH/MM3 (1.0-4.8); MEAN CELL VOLUME 87.3 FL (80.0-100.0); MEAN CORPUSCULAR HEMOGLOBIN 28.2 PG (27.0-34.0); MEAN CORPUSCULAR HGB CONC 32.3 % (32.0-36.0); MEAN PLATELET VOLUME 8.4 FL (7.0-11.0); MONO % 10.4 % (0.0-8.0); MONOCYTE # 1.3 TH/MM3 (0-0.9); NEUT % 64.9 % (16.0-70.0); PLATELET COUNT 296 TH/MM3 (150-450); RED BLOOD COUNT 3.72 MIL/MM3 (4.00-5.30); RED CELL DISTRIBUTION WIDTH 16.8 % (11.6-17.2); WHITE BLOOD COUNT 12.3 TH/MM3 (4.0-11.0)
[2017-08-14 10:46] LABS: BICARBONATE 26.5 MEQ/L (21.0-32.0); BLOOD UREA NITROGEN 16 MG/DL (7-18); CALCIUM 8.5 MG/DL (8.5-10.1); CHLORIDE 105 MEQ/L (98-107); CREATININE 0.66 MG/DL (0.50-1.00); GLOMERULAR FILTRATION RATE 107 ML/MIN (>89); GLUCOSE,RANDOM 88 MG/DL (74-106); MAGNESIUM 2.2 MG/DL (1.5-2.5); SODIUM (NA) 139 MEQ/L (136-145)
[2017-08-14 10:51] LABS: TROPONIN I LESS THAN 0.02 NG/ML (0.02-0.05)
--- NOTE | 2017-08-14 12:29 | RADRPT ---
EXAM DATE: 08/14/2017 12:23 PM EDT AGE/SEX: 26 years / Female INDICATIONS: Trauma. Hit back of head, seizure. CLINICAL DATA: This is the patient's initial encounter. Patient reports that signs and symptoms have been present for 1 day and indicates a pain score of 7/10. MEDICAL/SURGICAL HISTORY: Deep venous thrombosis. Gastroesophageal reflux disease. Congestive hea rt failure. Seizures. Brain abscess. Hepatitis B. Hepatitis C. Hemorrhagic stroke. Hysterectomy. C esarean section. Appendectomy. Cholecystectomy. Valve replacement. Pacemaker. RADIATION DOSE: 52.54 CTDI (mGy) COMPARISON: [facility] – [place], [place] BRAIN W/O CONTRAST, 07/24/2017. . TECHNIQUE: CT of the head without contrast. Using automated exposure control and adjustment of the mA and/or kV according to patient size, radiation dose was kept as low as reasonably achievable to ob tain optimal diagnostic quality images. DICOM format image data is available electronically for revi ew and comparison. FINDINGS: Cerebrum: The ventricles are normal for age. There is a stable area of encephalomalacia involving t he right parietal lobe. No evidence of midline shift, mass lesion, hemorrhage or acute infarction. N o extraaxial fluid collections are seen. Posterior Fossa: The cerebellum and brainstem are intact. The 4th ventricle is midline. The cerebe llopontine angle is unremarkable. Extracranial: The visualized portion of the orbits is intact. Skull: The calvaria is intact. No evidence of skull fracture. CONCLUSION: 1. Stable appearance with no acute hemorrhage or mass effect. 2. Stable area of encephalomalacia involving the right parietal lobe. Electronically signed by: Allan Knapp MD 08/14/2017 12:28 PM EDT
--- NOTE | 2017-08-14 12:40 | RADRPT ---
EXAM DATE: 08/14/2017 12:30 PM EDT AGE/SEX: 26 years / Female INDICATIONS: Chest pain. CLINICAL DATA: This is the patient's initial encounter. Patient reports that signs and symptoms have been present for 1 day and indicates a pain score of 8/10. MEDICAL/SURGICAL HISTORY: Congestive heart failure. Deep venous thrombosis. Gastroesophageal refl ux disease. Seizures. Hepatitis B. Hepatitis C. Hemorrhagic stroke. section. Appendectomy . Cholecystectomy. Hysterectomy. Valve replacement. Pacemaker. RADIATION DOSE: 16.31 CTDI (mGy) [place] [facility] [place]24/[place]. . TECHNIQUE: Volumetric scanning was performed using a multi-row detector CT scanner during bolus infu calixto of 73 ml Omnipaque 350 (iohexol) nonionic water-soluble contrast as a single exam dose. The derrick a was post processed with a variety of visualization algorithms including full volume maximum intensi ty projection and sliding thin slab reformation. Using automated exposure control and adjustment of t he mA and/or kV according to patient size, radiation dose was kept as low as reasonably achievable to obtain optimal diagnostic quality images. DICOM format image data is available electronically for r eview and comparison. FINDINGS: Pulmonary Arteries: No filling defects are seen in the pulmonary arteries out to the subsegmental ve ssels. The left and right pulmonary arteries are normal in diameter. Lung: No inflammatory infiltrates seen. Groundglass opacities are present in both lung bases. There is mild atelectasis and/or scarring in the right lung base. Effusion: A small right effusion is noted. Mediastinum: The patient is again noted to be status post median sternotomy with postsurgical change s. Artificial heart valves are again noted and there is mild to moderate cardiomegaly with no pericar dial effusion. Other: The axilla is unremarkable. A tiny less than 1 mm left renal calculus is again noted. CONCLUSION: 1. No evidence of pulmonary emboli. 2. Small right pleural effusion again noted. 3. Mild groundglass opacities in the lung bases. 4. Status post median sternotomy with artificial heart valves and cardiomegaly. Electronically signed by: Allan Knapp MD 08/14/2017 12:39 PM EDT
--- NOTE | 2017-08-14 18:17 | EKG ---
Date Performed: 08/14/2017 Time Performed: 10:20:30 PTAGE: 26 years EKG: Probable ECTOPIC ATRIAL RHYTHM INCOMPLETE RIGHT BUNDLE BRANCH BLOCK MODERATE T-WAVE ABNORMA LITY, CONSIDER ANTERIOR ISCHEMIA ABNORMAL ECG Baseline artifact PREVIOUS TRACING : 07/24/2017 01.35 When compared to the prior EKG,patient is no longer t achycardic DOCTOR: Neida Rader Interpretating Date/Time 08/14/2017 18:15:34
== END 2017-08-14 13:42 | disposition home or self-care (01) ==
LOC: NEPE 09:28
DX: G40.909 Epilepsy, unspecified, not intractable, without status epilepticus (principal); S00.03XA Contusion of scalp, initial encounter; R07.9 Chest pain, unspecified; I45.10 Unspecified right bundle-branch block; R94.31 Abnormal electrocardiogram [ECG] [EKG]; F12.90 Cannabis use, unspecified, uncomplicated; F31.9 Bipolar disorder, unspecified; F41.9 Anxiety disorder, unspecified; I48.91 Unspecified atrial fibrillation; I69.954 Hemiplegia and hemiparesis following unspecified cerebrovascular disease affecting left non-dominant side; K21.9 Gastro-esophageal reflux disease without esophagitis; W18.00XA Striking against unspecified object with subsequent fall, initial encounter; Y99.0 Civilian activity done for income or pay; Z95.2 Presence of prosthetic heart valve; Z79.82 Long term (current) use of aspirin; Z79.01 Long term (current) use of anticoagulants; Z79.899 Other long term (current) drug therapy; Z88.5 Allergy status to narcotic agent; Z88.0 Allergy status to penicillin; Z86.718 Personal history of other venous thrombosis and embolism; Z86.711 Personal history of pulmonary embolism; Z88.8 Allergy status to other drugs, medicaments and biological substances
CPT/HCPCS: 70450; 71275; 80048; 83735; 84484; 85025; 87040; 93005; 99285; Q9967

== ENCOUNTER 2017-09-14 21:22 | Inpatient (IN) ==
[2017-09-14] MEDS ORDERED: Sod Chloride 0.9% Inj 1,000 ML IV.SIG ONE ×2 (21:28→22:03)
--- NOTE | 2017-09-14 21:48 | ED ---
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 Onset was more than a week ago. It has gotten progressively worse over the last few days. MD complaint: fever Onset (ago): week(s) (>1) Maximum Temperature: 104.2 F Associated symptoms: chills and chest pain Relieving factors: nothing Exacerbating factors: nothing Treatments prior to arrival fever: acetaminophen (LD 2 hrs [employer]MENT CHAIR) Related Data Home Medications Medication Instructions Recorded Confirmed aspirin 81 mg PO DAILY 09/14/17 09/14/17 ferrous sulfate 15 mg PO BID 09/14/17 09/14/17 fluoxetine 20 mg PO DAILY 09/14/17 09/14/17 lorazepam 1 mg PO BID 09/14/17 09/14/17 methocarbamol 500 mg PO QID 09/14/17 09/14/17 oxycodone 10 mg PO Q4-6H PRN 09/14/17 09/14/17 pantoprazole [Protonix] 40 mg PO DAILY 09/14/17 09/14/17 topiramate [Topamax] 50 mg PO DAILY 09/14/17 09/14/17 warfarin [Coumadin] 5 mg PO DAILY 09/14/17 09/14/17 warfarin [Coumadin] 5 mg PO DAILY 09/14/17 09/14/17 Allergies Allergy/AdvReac Type Severity Reaction Status Date / Time codeine Allergy Severe HIVES/VOMIT Verified 09/14/17 21:46 ING Fish Containing Products Allergy Severe THROAT Verified 09/14/17 21:46 SWOLLEN/HIVES gabapentin Allergy Severe Hives Verified 09/14/17 21:46 morphine Allergy Severe Hives Verified 09/14/17 21:46 naproxen Allergy Severe Hives Verified 09/14/17 21:46 piperacillin Allergy Severe Hives Verified 09/14/17 21:46 tazobactam Allergy Severe Hives Verified 07/24/17 01:33 adhesive tape Allergy Rash, Verified 09/14/17 21:44 Localized shellfish derived Allergy Difficulty Verified 09/14/17 21:46 Breathing Review of Systems Except as stated in HPI: all other systems reviewed are negative Constitutional Reports anorexia, Reports body ache(s) and Reports chills Cardiovascular Reports chest pain Respiratory Denies cough Gastrointestinal Reports nausea and Reports vomiting Genitourinary Reports other (decreased UO) [facility] Medical History Medical History SBE (subacute bacterial endocarditis) (Acute) Seizure as late effect of cerebrovascular accident (CVA) (Acute) Stroke (Acute) Surgical History Surgical History H/O mitral valve replacement with mechanical valve (Acute) History of tricuspid valve replacement with mechanical valve (Acute) Social History Social History Second Hand Smoke Exposure: No Smoking Status: Former smoker Tobacco Type: Cigarettes How Often Do You Have a Drink Containing Alcohol: Never Recent Travel in [facility] within the Last 8 Weeks: No Recent Out of Country Travel within the Last 8 Weeks: No Course Consultations Consultation #1: Dr. Durham will admit the patient to the hospital for further evaluation and treatment Time: 23:00 Initial Documented Vital Signs Temperature 103.6 F H 09/14/17 21:26 Pulse Rate 127 H 09/14/17 21:26 Respiratory Rate 18 09/14/17 21:26 Blood Pressure 133/51 L 09/14/17 21:26 Pulse Oximetry 94 L 09/14/17 21:26 Last Documented Vital Signs Temperature 102.6 F H 09/14/17 22:34 Pulse Rate 102 H 09/14/17 22:34 Respiratory Rate 22 09/14/17 22:51 Blood Pressure 121/54 L 09/14/17 21:55 Pulse Oximetry 95 09/14/17 21:55 Critical Care Time Critical Care Time: Yes Total Critical Care Time: 45 Attestation: Time to perform other separately billable procedures was not included in the critical care time. My time did not include minutes spent treating any other patients simultaneously or on activities that did not directly contribute to the patient's treatment. The services I provided to this patient were to treat and/or prevent clinically significant deterioration due to sepsis I provided critical care services requiring my management, as noted below: Chart data review, documentation time, medication orders and management, vital sign assessments/reviewing monitor data, ordering and reviewing lab tests, ordering and interpreting/reviewing x-rays and diagnostic studies, care of the patient and discussion of the patient with the admitting physicians Medical Decision Making MDM Narrative Medical decision making narrative: This patient has mechanical mitral and tricuspid valve secondary to previous endocarditis secondary to previous IV drug abuse. She had onset of fever over a week ago and states that her T-max has been 104.2 this morning. Septic workup is in process including blood cultures 4. She meets SIRS criteria. Unfortunately, her laboratory and radiographic evaluation does not reveal the etiology of her fever. She has been treated empirically with cefepime and vancomycin. Differential Diagnosis Differential Diagnosis: Differential diagnosis of fever includes but is not limited to viral illness, strep throat, otitis media, pneumonia, sepsis, UTI Lab Data Lab results reviewed: Yes I reviewed the patient's lab results. Result diagrams: 09/14/17 21:50 09/14/17 21:50 Lab Results 09/14/17 09/14/17 09/14/17 Range/Units 21:50 21:50 21:50 CBC w Diff Auto diff final WBC 17.8 H (4.0-11.0) th/mm3 RBC 4.00 (4.00-5.30) mil/mm3 Hgb 11.5 L (11.6-15.3) gm/dL Hct 35.9 (35.0-46.0) % MCV 89.6 (80.0-100.0) fL MCH 28.8 (27.0-34.0) pg MCHC 32.2 (32.0-36.0) % RDW 15.4 (11.6-17.2) % Plt Count 340 (150-450) th/mm3 MPV 8.5 (7.0-11.0) fL Neut % (Auto) 94.3 H (16.0-70.0) % Lymph % (Auto) 4.7 L (9.0-44.0) % [place] % (Auto) 0.3 (0.0-8.0) % Eos % (Auto) 0.5 (0.0-4.0) % Baso % (Auto) 0.2 (0.0-2.0) % Neut # (Auto) 16.8 H (1.8-7.7) th/mm3 Lymph # (Auto) 0.8 L (1.0-4.8) th/mm3 [place] # (Auto) 0.1 (0.0-0.9) th/mm3 Eos # (Auto) 0.1 (0.0-0.4) th/mm3 Baso # (Auto) 0.0 (0.0-0.2) th/mm3 WBC Differential . Differential Comment . PT 11.6 (9.8-11.6) sec INR 1.1 Ratio APTT 25.5 (24.3-30.1) sec Sodium 133 L (136-145) meq/L Potassium 3.6 (3.5-5.1) meq/L Chloride 102 (98-107) meq/L Carbon Dioxide 25.0 (21.0-32.0) meq/L Anion Gap 6 (5-15) meq/L BUN 14 (7-18) mg/dL Creatinine 0.88 (0.50-1.00) mg/dL Estimated GFR 77 L (>89) mL/min Random Glucose 103 (74-106) mg/dL Lactic Acid (0.4-2.0) mmol/L Calcium 8.2 L (8.5-10.1) mg/dL Total Bilirubin 1.7 H (0.2-1.0) mg/dL AST 21 (15-37) U/L ALT 27 (10-53) U/L Alkaline Phosphatase 166 H (45-117) U/L Troponin I Less than 0.02 L (0.02-0.05) ng/mL Total Protein 7.5 (6.4-8.2) g/dL Albumin 3.5 (3.4-5.0) g/dL Urine Color (Yellw/Straw) Urine Clarity (Clear) Urine pH (5.0-8.5) Ur Specific [place] (1.002-1.035) Urine Protein (Neg-Trace) mg/dL Urine Glucose (UA) (Negative) mg/dL Urine Ketones (Negative) mg/dL Urine Occult Blood (Negative) Urine Nitrate (Negative) Urine Bilirubin (Negative) Urine Urobilinogen (Less than 2) mg/dL Ur Leukocyte Esterase (Negative) Urine RBC (0-3) /hpf Urine WBC (0-5) /hpf Ur Squamous Epith Cells (0-5) /hpf Micro UA Comment Urine Culture Comments 09/14/17 09/14/17 Range/Units 21:50 22:10 CBC w Diff WBC (4.0-11.0) th/mm3 RBC (4.00-5.30) mil/mm3 Hgb (11.6-15.3) gm/dL Hct (35.0-46.0) % MCV (80.0-100.0) fL MCH (27.0-34.0) pg MCHC (32.0-36.0) % RDW (11.6-17.2) % Plt Count (150-450) th/mm3 MPV (7.0-11.0) fL Neut % (Auto) (16.0-70.0) % Lymph % (Auto) (9.0-44.0) % [place] % (Auto) (0.0-8.0) % Eos % (Auto) (0.0-4.0) % Baso % (Auto) (0.0-2.0) % Neut # (Auto) (1.8-7.7) th/mm3 Lymph # (Auto) (1.0-4.8) th/mm3 [place] # (Auto) (0.0-0.9) th/mm3 Eos # (Auto) (0.0-0.4) th/mm3 Baso # (Auto) (0.0-0.2) th/mm3 WBC Differential Differential Comment PT (9.8-11.6) sec INR Ratio APTT (24.3-30.1) sec Sodium (136-145) meq/L Potassium (3.5-5.1) meq/L Chloride (98-107) meq/L Carbon Dioxide (21.0-32.0) meq/L Anion Gap (5-15) meq/L BUN (7-18) mg/dL Creatinine (0.50-1.00) mg/dL Estimated GFR (>89) mL/min Random Glucose (74-106) mg/dL Lactic Acid 1.0 (0.4-2.0) mmol/L Calcium (8.5-10.1) mg/dL Total Bilirubin (0.2-1.0) mg/dL AST (15-37) U/L ALT (10-53) U/L Alkaline Phosphatase (45-117) U/L Troponin I (0.02-0.05) ng/mL Total Protein (6.4-8.2) g/dL Albumin (3.4-5.0) g/dL Urine Color [place] H (Yellw/Straw) Urine Clarity Clear (Clear) Urine pH 6.0 (5.0-8.5) Ur Specific [place] 1.020 (1.002-1.035) Urine Protein Negative (Neg-Trace) mg/dL Urine Glucose (UA) Negative (Negative) mg/dL Urine Ketones Negative (Negative) mg/dL Urine Occult Blood Negative (Negative) Urine Nitrate Negative (Negative) Urine Bilirubin Negative (Negative) Urine Urobilinogen 4.0 H (Less than 2) mg/dL Ur Leukocyte Esterase Negative (Negative) Urine RBC 0-3 (0-3) /hpf Urine WBC 0-5 (0-5) /hpf Ur Squamous Epith Cells 0-5 (0-5) /hpf Micro UA Comment Culture not ind Urine Culture Comments Culture not ind Imaging Data Attestation: I personally reviewed and interpreted this imaging study as follows : My impression: cardiomegaly. clear lungs. Radiologist's impression: Chest X-Ray 09/14/17 21:28 CONCLUSION: The lungs are clear. No evidence of pneumothorax. ECG Data EKG Prior to Arrival: No Attestation: I personally reviewed and interpreted this ECG as follows: (EKG shows a sinus tachycardia at 125. She has a right bundle branch block. She has some nonspecific STT wave changes.) Prior ECG tracings: not available for review Discharge Plan Discharge Disposition Patient Disposition: 30 Still Patient Discharge Condition Condition: Stable Discharge Details Diagnosis: Fever of unknown origin Physicians Team ED Provider: Yola Cabrera Primary Care Provider: UNKNOWN, Attending Provider: Dasha Durham Discharge Interventions Interventions: Vital Signs Last Done: 09/14/17 22:34 Status ED Status: Admitted Patient
--- NOTE | 2017-09-14 21:56 | XR ---
EXAM DATE: 09/14/2017 9:44 PM EDT AGE/SEX: 26 years / Female INDICATIONS: Left side chest pain. CLINICAL DATA: This is the patient's initial encounter. Patient reports that signs and symptoms have been present for 1 day and indicates a pain score of 8/10. MEDICAL/SURGICAL HISTORY: Congestive heart failure. Deep venous thrombosis. Pacemaker. Valve r eplacement. COMPARISON: [facility] – [place], CHEST SINGLE AP, 08/03/2017. . FINDINGS: The heart is mildly enlarged, stable from prior. Evidence prior median sternotomy and valve replaceme nt. Epicardial pacing device stable. No new infiltrates seen. Both hemidiaphragms well delineated. No evidence of pneumothorax. CONCLUSION: The lungs are clear. No evidence of pneumothorax. Electronically signed by: Andrey Virk MD 09/14/2017 9:55 PM EDT
[2017-09-14 22:04] LABS: Baso % (Auto) 0.2 % (0.0-2.0); Eos # (Auto) 0.1 th/mm3 (0.0-0.4); Eos % (Auto) 0.5 % (0.0-4.0); Hematocrit 35.9 % (35.0-46.0); Hemoglobin 11.5 gm/dL (11.6-15.3); Lymph # (Auto) 0.8 th/mm3 (1.0-4.8); Lymph % (Auto) 4.7 % (9.0-44.0); Mean Corpuscular HGB Conc 32.2 % (32.0-36.0); Mean Corpuscular Hemoglobin 28.8 pg (27.0-34.0); Mean Corpuscular Volume 89.6 fL (80.0-100.0); Mean Platelet Volume 8.5 fL (7.0-11.0); Mono # (Auto) 0.1 th/mm3 (0.0-0.9); Mono % (Auto) 0.3 % (0.0-8.0); Neut # (Auto) 16.8 th/mm3 (1.8-7.7); Neut % (Auto) 94.3 % (16.0-70.0); Platelet Count 340 th/mm3 (150-450); Red Cell Distribution Width 15.4 % (11.6-17.2); White Blood Count 17.8 th/mm3 (4.0-11.0)
[2017-09-14 22:11] LABS: Chloride 102 meq/L (98-107); Potassium 3.6 meq/L (3.5-5.1); Sodium 133 meq/L (136-145)
[2017-09-14 22:14] LABS: Calcium 8.2 mg/dL (8.5-10.1)
[2017-09-14 22:15] LABS: Albumin 3.5 g/dL (3.4-5.0); Anion Gap 6 meq/L (5-15); Blood Urea Nitrogen 14 mg/dL (7-18); Glucose,Random 103 mg/dL (74-106)
[2017-09-14 22:17] LABS: Activated Partial Thrombo Time 25.5 sec (24.3-30.1); INR 1.1 Ratio; Prothrombin Time 11.6 sec (9.8-11.6)
[2017-09-14 22:17] LABS: Bilirubin,Urine Negative (Negative); Clarity,Urine Clear (Clear); Color,Urine Orange (Yellw/Straw); Glucose,Urine (UA) Negative (Negative); Leukocyte Esterase,Urine Negative (Negative); Nitrite,Urine Negative (Negative)
[2017-09-14 22:18] LABS: Alanine Aminotransferase 27 U/L (10-53); Aspartate Aminotransferase 21 U/L (15-37); Glomerular Filtration Rate 77 mL/min (>89)
[2017-09-14 22:20] LABS: Total Protein 7.5 g/dL (6.4-8.2)
[2017-09-14 22:21] LABS: RBC,Urine 0-3 /hpf (0-3); Squamous Epithelial Cell,Urine 0-5 /hpf (0-5); WBC,Urine 0-5 /hpf (0-5)
[2017-09-14 22:21] LABS: Alkaline Phosphatase 166 U/L (45-117)
[2017-09-14] MEDS ORDERED: Morphine Inj 4 MG/ML Vial IV.PUSH ONE (22:35)
[2017-09-14] MEDS ORDERED: Vancomycin Inj 1,000 MG in Sodium Chlor 0.9% Inj 250 ML IV.SIG STA (22:36)
[2017-09-14] MEDS ORDERED: Bisacodyl 10 MG Supp RECTAL PRN (22:55)
[2017-09-14] MEDS ORDERED: Temazepam 15 MG Capsule PO PRN (22:55)
[2017-09-14] MEDS ORDERED: Vancomycin Consult Pharmacy 1 EACH OTHER SCH (23:00)
[2017-09-14] MEDS ORDERED: HYDROmorphone PF Inj 2 MG/ML Vial IV.PUSH ONE (23:05)
[2017-09-15] MEDS: Acetaminophen 325 MG Tablet PO PRN (03:18)
[2017-09-15 04:57] LABS: Baso # (Auto) 0.2 th/mm3 (0.0-0.2); Baso % (Auto) 1.5 % (0.0-2.0); Eos % (Auto) 0.2 % (0.0-4.0); Hematocrit 32.7 % (35.0-46.0); Hemoglobin 10.6 gm/dL (11.6-15.3); Lymph # (Auto) 1.4 th/mm3 (1.0-4.8); Lymph % (Auto) 12.7 % (9.0-44.0); Mean Corpuscular HGB Conc 32.4 % (32.0-36.0); Mean Corpuscular Hemoglobin 28.8 pg (27.0-34.0); Mean Platelet Volume 8.6 fL (7.0-11.0); Mono # (Auto) 0.3 th/mm3 (0.0-0.9); Mono % (Auto) 2.7 % (0.0-8.0); Neut # (Auto) 9.5 th/mm3 (1.8-7.7); Neut % (Auto) 82.9 % (16.0-70.0); Platelet Count 295 th/mm3 (150-450); Red Blood Count 3.68 mil/mm3 (4.00-5.30); Red Cell Distribution Width 15.6 % (11.6-17.2); White Blood Count 11.4 th/mm3 (4.0-11.0)
[2017-09-15 04:58] LABS: Chloride 106 meq/L (98-107); Potassium 3.7 meq/L (3.5-5.1); Sodium 136 meq/L (136-145)
[2017-09-15 04:59] LABS: Anion Gap 5 meq/L (5-15); Blood Urea Nitrogen 12 mg/dL (7-18); Calcium 7.7 mg/dL (8.5-10.1); Carbon Dioxide 24.6 meq/L (21.0-32.0); Glucose,Random 91 mg/dL (74-106)
[2017-09-15 05:03] LABS: Glomerular Filtration Rate Greater Than 89 mL/min (>89)
[2017-09-15] MEDS: Sod Chloride 0.9% Inj 1,000 ML IV.CONT SCH ×3 (05:23→18:12)
--- NOTE | 2017-09-15 09:24 | P.HP ---
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 For the last 10 days she has been having malaise and low-grade fevers but starting 3 days ago her fevers increased as high as 104.5 and she became increasingly confused. She reports that her family found her on the floor yesterday evening shaking and disoriented. Her main complaint on admission outside of fever is that she has exquisite pain and softness around her pacemaker site. She was hospitalized approximately 6 weeks ago for a similar episode involving fever. At that time extensive workup including TAO revealed no evidence of cardiac vegetations and she was sent home following a completed course of IV antibiotics in the hospital. Inpatient Certification: I certify that the inpatient services were ordered in accordance with Medicare regulations governing the order. This includes certification that hospital inpatient services are reasonable and necessary and in the case of services not specified as inpatient-only under 42 CFR 419.22(n), that they are appropriately provided as inpatient services in accordance to with the 2-midnight benchmark under 43 CFR 412.3(e) Estimated Total Length of Stay (Days): 3 Plans for Post Hospital Care: Home Review of Systems Constitutional: Reports body ache(s), Reports chills, Reports fatigue, Reports fever(s), Reports lack of energy, Reports malaise, Reports night sweats, Denies anorexia, Denies daytime sleepiness Eyes: Denies blind spots, Denies blurry vision, Denies bulging eyes, Denies change in vision, Denies double vision, Denies discharge, Denies dry eyes, Denies floaters, Denies irritation, Denies itchy eyes, Denies loss of vision, Denies pain, Denies requires corrective lenses, Denies sensitivity to light, Denies other Ears, Nose, Mouth, and Throat: Denies abnormal hearing, Denies bleeding gums, Denies bad breath, Denies change in voice, Denies dental pain, Denies difficulty swallowing, Denies dizziness, Denies dry mouth, Denies ear discharge , Denies ear pain, Denies facial pain, Denies headache(s), Denies hearing loss, Denies hoarseness, Denies lip swelling, Denies nosebleed, Denies mouth lesions, Denies mouth pain, Denies nasal congestion, Denies nasal discharge, Denies nasal obstruction, Denies nasal trauma, Denies neck lump, Denies neck pain, Denies nose pain, Denies pain with swallowing, Denies poor balance, Denies post nasal drip, Denies ringing in the ears, Denies sinus pain, Denies sinus pressure , Denies sore throat, Denies throat swelling, Denies tongue swelling, Denies other Cardiovascular: Denies chest pain, Denies chest pain with activity, Denies generalized swelling, Denies leg sores, Denies rapid, pounding, or irregular heartbeat, Denies shortness of breath, Denies shortness of breath causing sudden awakening, Denies slow heart rate Respiratory: Denies change in phlegm color, Denies chest congestion, Denies cough, Denies coughing up blood, Denies excessive phlegm production, Denies pain on inspiration, Denies pain with cough, Denies shortness of breath, Denies shortness of breath with activity, Denies snoring, Denies stridor, Denies wheezing, Denies other Gastrointestinal: Denies abdominal pain, Denies belching, Denies black, tarry stools, Denies bloating, Denies bright, red blood in stools, Denies change in bowel habits, Denies constant urge to pass stool, Denies change in stools, Denies coffee ground vomit, Denies constipation, Denies cramping, Denies difficulty swallowing, Denies excessive passing of gas, Denies feeling full early, Denies heartburn, Denies incontinent of stools, Denies loose stools, Denies nausea, Denies pain with swallowing, Denies vomiting, Denies vomiting blood, Denies other Genitourinary: Denies abnormal periods, Denies abnormal vaginal bleeding, Denies absent period, Denies bleeding between periods, Denies blood in urine, Denies difficulty starting urination, Denies difficulty urinating, Denies dribbling after urination, Denies frequent nighttime urination, Denies genital itching, Denies genital lesions, Denies heavy periods, Denies hot flashes, Denies light periods, Denies nipple discharge, Denies painful intercourse, Denies painful periods, Denies painful urination, Denies pelvic pain, Denies prolapse symptoms, Denies sexual problems, Denies side pain, Denies urinary incontinence, Denies urinary urgency, Denies vaginal discharge, Denies vaginal dryness, Denies vaginal odor, Denies vaginal itching, Denies other Skin/Breast: Reports other Neurologic: Denies abnormal hearing, Denies abnormal movements, Denies abnormal speech, Denies abnormal walking, Denies behavioral changes, Denies burning sensations, Denies confusion, Denies dizziness, Denies fainting, Denies frequent falls, Denies headache(s), Denies lack of coordination, Denies localized weakness, Denies loss of vision, Denies memory loss, Denies numbness, Denies other visual disturbances, Denies radiating pain, Denies restless legs, Denies convulsions, Denies seizure-like activity, Denies sensory deficit, Denies tingling, Denies tingling/numbness/burning sensations, Denies tremor(s), Denies unsteadiness, Denies weakness, Denies other Psychiatric: Denies abnormal sleep pattern, Denies anxiety, Denies behavioral changes, Denies change in appetite, Denies change in sex drive, Denies confusion , Denies depression, Denies difficulty concentrating, Denies hearing things others do not hear, Denies hopelessness, Denies irritability, Denies lack of enjoyment, Denies memory loss, Denies mood swings, Denies panic attacks, Denies paranoia, Denies seeing things others do not see, Denies sensing things others do not sense, Denies tactile hallucinations, Denies thoughts of hurting/killing others, Denies thoughts of hurting/killing yourself, Denies other PMFSH - History History Provided By: Patient - Medical History Medical History: Medical History (Last Updated 09/14/17 @ 21:45 by Yola Cabrera) SBE (subacute bacterial endocarditis) Seizure as late effect of cerebrovascular accident (CVA) Stroke - Surgical History Surgical History: Surgical History (Last Updated 09/14/17 @ 21:46 by Yola Cabrera) H/O mitral valve replacement with mechanical valve History of tricuspid valve replacement with mechanical valve - Tobacco History Second Hand Smoke Exposure: No Tobacco Use In Past 30 Days: No Smoking Status: Never smoker Tobacco Type: Cigarettes - Alcohol History How Often Do You Have a Drink Containing Alcohol: Monthly or less - Substance Use History Substance History: Past History - Substance Use Type Opiates Status: Sustained Remission Route Used: By Mouth, Intravenously Last Used: 2013 Reason for Use: Get High - Travel History Recent Travel in the [place] Within the Last 8 Weeks: No Recent Travel Out of the Country Within the Last 8 Weeks: No - Immunization History Tetanus Immunization: <5 Years Hx Influenza Vaccine This Season: No Medications and Allergies Active Medications: Active Medications Acetaminophen (Tylenol) 650 mg PO Q4H PRN PRN Reason: temp>100.4, pain 1-5 Last Admin: 09/15/17 03:18 Dose: 650 mg Al Hydroxide/Mg Hydroxide (Milk Of Magnesia Liq) 30 ml PO Q12H PRN PRN Reason: Mild Constipation Bisacodyl (Dulcolax Supp) 10 mg RECTAL DAILY PRN PRN Reason: SEVERE CONSITIPATION Cefepime HCl 2,000 mg/ Sodium (Chloride) 100 mls @ 200 mls/hr IV.SIG Q8H HENRI Sodium Chloride (Ns Inj) 1,000 mls @ 100 mls/hr IV.CONT .Q10H HENRI Last Admin: 09/15/17 05:23 Dose: 100 mls/hr Pharmacy Profile Note (Vancomycin Consult Pharmacy) 0 mls @ 0 mls/hr OTHER UNSCH HENRI Vancomycin HCl 1,500 mg/ (Sodium Chloride) 515 mls @ 250 mls/hr IV.SIG Q18H HENRI Lactulose (Lactulose Liq) 30 ml PO DAILY PRN PRN Reason: SEVERE CONSITIPATION Ondansetron HCl (Zofran Inj) 4 mg IV.PUSH Q6H PRN PRN Reason: NAUSEA OR VOMITING Last Admin: 09/14/17 23:15 Dose: 4 mg Oxycodone/Acetaminophen (Percocet 7.5/325 Mg) 1 tab PO Q6H PRN PRN Reason: PAIN SCALE 6 TO 10 Senna/Docusate Sodium (Mariam-Colace) 1 tab PO BID HENRI Sennosides (Senokot) 17.2 mg PO Q12H PRN PRN Reason: Moderate Constipation Temazepam (Restoril) 15 mg PO HS PRN PRN Reason: INSOMNIA Last Admin: 09/15/17 03:19 Dose: 15 mg Allergies Allergy/AdvReac Type Severity Reaction Status Date / Time codeine Allergy Severe HIVES/VOMIT Verified 09/14/17 21:46 ING Fish Containing Products Allergy Severe THROAT Verified 09/14/17 21:46 SWOLLEN/HIVES gabapentin Allergy Severe Hives Verified 09/14/17 21:46 morphine Allergy Severe Hives Verified 09/14/17 21:46 naproxen Allergy Severe Hives Verified 09/14/17 21:46 piperacillin Allergy Severe Hives Verified 09/14/17 21:46 tazobactam Allergy Severe Hives Verified 07/24/17 01:33 adhesive tape Allergy Rash, Verified 09/14/17 21:44 Localized shellfish derived Allergy Difficulty Verified 09/14/17 21:46 Breathing Home Medications Medication Instructions Recorded Confirmed Type aspirin 81 mg PO DAILY 09/14/17 09/14/17 History ferrous sulfate 15 mg PO BID 09/14/17 09/14/17 History fluoxetine 20 mg PO DAILY 09/14/17 09/14/17 History lorazepam 1 mg PO BID 09/14/17 09/14/17 History methocarbamol 500 mg PO QID 09/14/17 09/14/17 History oxycodone 10 mg PO Q4-6H PRN 09/14/17 09/14/17 History pantoprazole [Protonix] 40 mg PO DAILY 09/14/17 09/14/17 History topiramate [Topamax] 50 mg PO DAILY 09/14/17 09/14/17 History warfarin [Coumadin] 5 mg PO DAILY 09/14/17 09/14/17 History warfarin [Coumadin] 5 mg PO DAILY 09/14/17 09/14/17 History Exam Vital signs: Vital Signs 09/14/17 21:26 09/14/17 21:28 09/14/17 21:55 Temperature 103.6 F H 103.6 F H Pulse Rate 127 H 118 H 115 H Respiratory Rate 18 22 Blood Pressure 133/51 L 121/54 L Pulse Oximetry 94 L 95 95 09/14/17 22:34 09/14/17 22:51 09/14/17 22:55 Temperature 102.6 F H 100.7 F H Pulse Rate 102 H 92 H Respiratory Rate 22 16 Blood Pressure 132/77 Pulse Oximetry 96 09/15/17 00:03 09/15/17 01:05 09/15/17 03:29 Temperature 99.2 F 98.5 F Pulse Rate 96 H 82 Respiratory Rate 16 18 16 Blood Pressure 136/72 109/49 L Pulse Oximetry 96 09/15/17 04:00 09/15/17 04:27 09/15/17 05:24 Temperature 98.8 F Pulse Rate 66 88 Respiratory Rate 17 3 L Blood Pressure 106/51 L Pulse Oximetry 94 L Intake & Output 09/14/17 09/15/17 09/15/17 18:59 06:59 18:59 Intake Total 1350 / 1350 Output Total 100 / 100 Balance 1250 / 1250 Weight 71 kg Intake: IV 1350 / 1350 Maxipime Inj 2,000 MG In NS Inj 100 / 100 100 ML @ 200 mls/hr IV.SIG STAT STA Rx#:[id number] NS Inj 1,000 ML @ Wide Open IV. 1000 / 1000 SIG BOLUS ONE Rx#:[id number] Vancomycin Inj 1,000 MG In NS 250 / 250 Inj 250 ML @ 250 mls/hr IV.SIG STAT STA Rx#:[id number] Output: Urine 100 / 100 Other: # Voids 2 Date of Last Bowel Movement 09/14/17 Weight On Admission 71 kg Results - Labs CBC & Chem 7: 09/15/17 04:43 09/15/17 04:43 Labs: Laboratory Results - last 24 hr 09/14/17 09/14/17 09/14/17 21:50 21:50 21:50 CBC w Diff Auto diff final WBC 17.8 H RBC 4.00 Hgb 11.5 L Hct 35.9 MCV 89.6 MCH 28.8 MCHC 32.2 RDW 15.4 Plt Count 340 MPV 8.5 Neut % (Auto) 94.3 H Lymph % (Auto) 4.7 L [place] % (Auto) 0.3 Eos % (Auto) 0.5 Baso % (Auto) 0.2 Neut # (Auto) 16.8 H Lymph # (Auto) 0.8 L [place] # (Auto) 0.1 Eos # (Auto) 0.1 Baso # (Auto) 0.0 WBC Differential . Differential Comment . PT 11.6 INR 1.1 APTT 25.5 Sodium 133 L Potassium 3.6 Chloride 102 Carbon Dioxide 25.0 Anion Gap 6 BUN 14 Creatinine 0.88 Estimated GFR 77 L Random Glucose 103 Lactic Acid Calcium 8.2 L Total Bilirubin 1.7 H AST 21 ALT 27 Alkaline Phosphatase 166 H Troponin I Less than 0.02 L Total Protein 7.5 Albumin 3.5 Urine Color Urine Clarity Urine pH Ur Specific [place] Urine Protein Urine Glucose (UA) Urine Ketones Urine Occult Blood Urine Nitrate Urine Bilirubin Urine Urobilinogen Ur Leukocyte Esterase Urine RBC Urine WBC Ur Squamous Epith Cells Micro UA Comment Urine Culture Comments 09/14/17 09/14/17 09/15/17 21:50 22:10 04:43 CBC w Diff Auto diff final WBC 11.4 H RBC 3.68 L Hgb 10.6 L Hct 32.7 L MCV 89.0 MCH 28.8 MCHC 32.4 RDW 15.6 Plt Count 295 MPV 8.6 Neut % (Auto) 82.9 H Lymph % (Auto) 12.7 [place] % (Auto) 2.7 Eos % (Auto) 0.2 Baso % (Auto) 1.5 Neut # (Auto) 9.5 H Lymph # (Auto) 1.4 [place] # (Auto) 0.3 Eos # (Auto) 0.0 Baso # (Auto) 0.2 WBC Differential . Differential Comment . PT INR APTT Sodium Potassium Chloride Carbon Dioxide Anion Gap BUN Creatinine Estimated GFR Random Glucose Lactic Acid 1.0 Calcium Total Bilirubin AST ALT Alkaline Phosphatase Troponin I Total Protein Albumin Urine Color Roane H Urine Clarity Clear Urine pH 6.0 Ur Specific [place] 1.020 Urine Protein Negative Urine Glucose (UA) Negative Urine Ketones Negative Urine Occult Blood Negative Urine Nitrate Negative Urine Bilirubin Negative Urine Urobilinogen 4.0 H Ur Leukocyte Esterase Negative Urine RBC 0-3 Urine WBC 0-5 Ur Squamous Epith Cells 0-5 Micro UA Comment Culture not ind Urine Culture Comments Culture not ind 09/15/17 04:43 CBC w Diff WBC RBC Hgb Hct MCV MCH MCHC RDW Plt Count MPV Neut % (Auto) Lymph % (Auto) [place] % (Auto) Eos % (Auto) Baso % (Auto) Neut # (Auto) Lymph # (Auto) [place] # (Auto) Eos # (Auto) Baso # (Auto) WBC Differential Differential Comment PT INR APTT Sodium 136 Potassium 3.7 Chloride 106 Carbon Dioxide 24.6 Anion Gap 5 BUN 12 Creatinine 0.70 Estimated GFR Greater than 89 Random Glucose 91 Lactic Acid Calcium 7.7 L Total Bilirubin AST ALT Alkaline Phosphatase Troponin I Total Protein Albumin Urine Color Urine Clarity Urine pH Ur Specific [place] Urine Protein Urine Glucose (UA) Urine Ketones Urine Occult Blood Urine Nitrate Urine Bilirubin Urine Urobilinogen Ur Leukocyte Esterase Urine RBC Urine WBC Ur Squamous Epith Cells Micro UA Comment Urine Culture Comments - Imaging Impressions Chest X-Ray 09/14/17 21:28 CONCLUSION: The lungs are clear. No evidence of pneumothorax. Caprini VTE Risk Assessment Caprini VTE Risk Assessment: Moderate/High Risk (score >= 2) Caprini Risk Assessment Model: Point Value = 1 Point Value = 2 Point Value = 3 Point Value = 5 Age 41-60 Minor surgery BMI > 25 kg/m2 Swollen legs Varicose veins or History of unexplained or recurrent spontaneous Oral contraceptives or hormone replacement Sepsis (< 1 month) Serious lung disease, including pneumonia (< 1 month) Abnormal pulmonary function Acute myocardial infarction Congestive heart failure (< 1 month) History of inflammatory bowel disease Medical patient at bed rest Age 61-74 Arthroscopic surgery Major open surgery (> 45 min) Laparoscopic surgery (> 45 min) Malignancy Confined to bed (> 72 hours) Immobilizing plaster cast Central venous access Age >= 75 History of VTE Family history of VTE Factor V Leiden Prothrombin [id number] Lupus anticoagulant Anticardiolipin antibodies Elevated serum homocysteine Heparin-induced thrombocytopenia Other congenital or acquired thrombophilia Stroke (< 1 month) Elective arthroplasty Hip, pelvis, or leg fracture Acute spinal cord injury (< 1 month) Prophylaxis Regimen: Total Risk Factor Score Risk Level Prophylaxis Regimen 0-1 Low Early ambulation 2 Moderate Order ONE of the following: *Sequential Compression Device (SCD) *Heparin 5000 units SQ BID 3-4 Higher Order ONE of the following medications: *Heparin 5000 units SQ TID *Enoxaparin/Lovenox 40 mg SQ daily (WT < 150 kg, CrCl > 30 mL/min) *Enoxaparin/Lovenox 30 mg SQ daily (WT < 150 kg, CrCl > 10-29 mL/min) *Enoxaparin/Lovenox 30 mg SQ BID (WT < 150 kg, CrCl > 30 mL/min) AND/OR *Sequential Compression Device (SCD) 5 or more Highest Order ONE of the following medications: *Heparin 5000 units SQ TID (Preferred with Epidurals) *Enoxaparin/Lovenox 40 mg SQ daily (WT < 150 kg, CrCl > 30 mL/min) *Enoxaparin/Lovenox 30 mg SQ daily (WT < 150 kg, CrCl > 10-29 mL/min) *Enoxaparin/Lovenox 30 mg SQ BID (WT < 150 kg, CrCl > 30 mL/min) AND *Sequential Compression Device (SCD) Assessment and Plan - Plan Fever of unknown origin Most serious considerations would include endocarditis versus pacemaker site infection Covered broadly with cefepime and vancomycin Blood cultures drawn and pending Normal lactic acid level on admission Follow leukocyte trend Remain in ICU given the high risk of etiologies Pacemaker site pain Possible source of infection Add p.o. and IV pain medication Cover broadly with cefepime and vancomycin Soft tissue ultrasound of pacemaker site DVT prophylaxis Heparin
[2017-09-15] MEDS: Senna/Docusate Sodium 8.6/50 MG Tablet PO SCH ×2 (09:25→21:08)
[2017-09-15] MEDS ORDERED: HYDROmorphone PF Inj 2 MG/ML Vial IV.PUSH PRN (09:30)
[2017-09-15] MEDS ORDERED: Heparin Drip 25,000 UNIT/250 ML BAG IV.CONT PRN (11:15)
[2017-09-15] MEDS ORDERED: Heparin 10,000 UNITS/10 ML Vial (for IV use) IV.PUSH ONE (11:15)
[2017-09-15] MEDS ORDERED: Heparin 10,000 UNITS/10 ML Vial (for IV use) IV.PUSH STA (11:42)
[2017-09-15] MEDS: Heparin Drip 25,000 UNIT/250 ML BAG IV.CONT PRN (12:00)
[2017-09-15 12:30] LABS: INR 1.5 Ratio; Prothrombin Time 14.7 sec (9.8-11.6)
--- NOTE | 2017-09-15 13:24 | US ---
EXAM DATE: 09/15/2017 1:20 PM EDT AGE/SEX: 26 years / Female INDICATIONS: Swelling and tenderness at pacemaker site. CLINICAL DATA: This is the patient's initial encounter. Patient reports that signs and symptoms have been present for 1 week and indicates a pain score of 4/10. MEDICAL/SURGICAL HISTORY: Stroke. Seizure. Subacute bacterial endocarditis. Pacemaker. Mitral Valve replacement with mechanical valve. Tricuspid valve replacement with mechanical valve. COMPARISON: No prior exams available for comparison. FINDINGS: There is no significant deep or superficial induration. There are no fluid collections. CONCLUSION: 1. Negative for abscess or fluid collection. Electronically signed by: Kj Lozano MD 09/15/2017 1:23 PM EDT
[2017-09-15] MEDS ORDERED: Heparin 10,000 UNITS/10 ML Vial (for IV use) IV.PUSH PRN ×3 (16:50→18:22)
[2017-09-15] MEDS: Vancomycin Inj 1,500 MG in Sodium Chlor 0.9% Inj 500 ML IV.SIG SCH (17:10)
--- NOTE | 2017-09-15 18:25 | P.CONID ---
History of Present Illness Service: ID Consult date: 09/15/17 Requesting Physician: Obinna Gaona Reason for Consult: endocarditis Primary Care Provider: UNKNOWN Family Provider: UNKNOWN History of Present Illness: 26 yo female very well known to our service from [place] previous hospitalisations She is sp mitral and tricuspid valve replacement 2/2 SBE 2 yrs ago she was treated for PVE S he was admitted in July for treatment of febrile illness Her blood clx were negative. TAO showed normal functioning prosthesis w/o vegetations Pt was discharged w/o antibiotics and developped fever 5 days ago she also noted new swelling and tenderness around her pacer on the L chest She had ultrasound of her pacer pocket and it showed no fluid collection n admission T max 103. 6 her BP is a little low 90s/40s BC at 1 day are negative Review of Systems All other systems reviewed negative except as stated in HPI PMFSH - History History Provided By: Patient - Medical History Medical History: Medical History (Last Reviewed 11/13/17 @ 10:40 by Merlyn Gurrola MD) SBE (subacute bacterial endocarditis) Seizure as late effect of cerebrovascular accident (CVA) Stroke - Surgical History Surgical History: Surgical History (Last Reviewed 11/13/17 @ 10:40 by Merlyn Gurrola MD) H/O mitral valve replacement with mechanical valve History of tricuspid valve replacement with mechanical valve - Family History Family History: Family History (Last Updated 11/13/17 @ 10:40 by Merlyn Gurrola MD) Other No pertinent family history - Social History I have reviewed the patient's Social History: Yes - Tobacco History Second Hand Smoke Exposure: No Tobacco Use In Past 30 Days: No Smoking Status: Never smoker Tobacco Type: Cigarettes - Alcohol History How Often Do You Have a Drink Containing Alcohol: Monthly or less - Substance Use History Substance History: Past History - Substance Use Type Opiates Status: Sustained Remission Route Used: By Mouth, Intravenously Last Used: 2013 Reason for Use: Get High - Travel History Recent Travel in the [place] Within the Last 8 Weeks: No Recent Travel Out of the Country Within the Last 8 Weeks: No - Immunization History Tetanus Immunization: <5 Years Hx Influenza Vaccine This Season: No Medications and Allergies Active Medications: Active Medications Acetaminophen (Tylenol) 650 mg PO Q4H PRN PRN Reason: temp>100.4, pain 1-5 Last Admin: 09/15/17 03:18 Dose: 650 mg Al Hydroxide/Mg Hydroxide (Milk Of Magnesia Liq) 30 ml PO Q12H PRN PRN Reason: Mild Constipation Bisacodyl (Dulcolax Supp) 10 mg RECTAL DAILY PRN PRN Reason: SEVERE CONSITIPATION Heparin Sodium (Porcine) (Heparin Inj) 2,500 units IV.PUSH UNSCH PRN PRN Reason: aPTT 25-39 Heparin Sodium (Porcine) (Heparin Inj) 5,000 units IV.PUSH UNSCH PRN PRN Reason: aPTT < 25 Hydromorphone HCl (Dilaudid Pf Inj) 0.2 mg IV.PUSH Q4H PRN PRN Reason: BREAKTHROUGH PAIN Last Admin: 09/15/17 11:19 Dose: 0.2 mg Cefepime HCl 2,000 mg/ Sodium (Chloride) 100 mls @ 200 mls/hr IV.SIG Q8H [facility] Last Admin: 09/15/17 17:10 Dose: Not Given Sodium Chloride (Ns Inj) 1,000 mls @ 100 mls/hr IV.CONT .Q10H [facility] Last Infusion: 09/15/17 17:33 Dose: Infused Pharmacy Profile Note (Vancomycin Consult Pharmacy) 0 mls @ 0 mls/hr OTHER UNSCH [facility] Vancomycin HCl 1,500 mg/ (Sodium Chloride) 515 mls @ 250 mls/hr IV.SIG Q18H [facility] Last Admin: 09/15/17 17:10 Dose: Not Given Heparin Sodium/Dextrose (Heparin/D5w 25,000 U/250 Ml) 25,000 unit in 250 mls @ 9 mls/hr IV.CONT TITRATE PRN; Protocol PRN Reason: Per Protocol Last Admin: 09/15/17 12:00 Dose: 900 units/hr, 9 mls/hr Lactulose (Lactulose Liq) 30 ml PO DAILY PRN PRN Reason: SEVERE CONSITIPATION Miscellaneous Information ([facility] Ordered Lab Info) 0 each OTHER ONCE ONE Stop: 09/17/17 19:46 Ondansetron HCl (Zofran Inj) 4 mg IV.PUSH Q6H PRN PRN Reason: NAUSEA OR VOMITING Last Admin: 09/14/17 23:15 Dose: 4 mg Oxycodone/Acetaminophen (Percocet 7.5/325 Mg) 1 tab PO Q6H PRN PRN Reason: PAIN SCALE 6 TO 10 Last Admin: 09/15/17 15:54 Dose: 1 tab Senna/Docusate Sodium (Mariam-Colace) 1 tab PO BID HENRI Last Admin: 09/15/17 09:25 Dose: Not Given Sennosides (Senokot) 17.2 mg PO Q12H PRN PRN Reason: Moderate Constipation Temazepam (Restoril) 15 mg PO HS PRN PRN Reason: INSOMNIA Last Admin: 09/15/17 03:19 Dose: 15 mg Allergies Allergy/AdvReac Type Severity Reaction Status Date / Time codeine Allergy Severe HIVES/VOMIT Verified 09/14/17 21:46 ING Fish Containing Products Allergy Severe THROAT Verified 09/14/17 21:46 SWOLLEN/HIVES gabapentin Allergy Severe Hives Verified 09/14/17 21:46 morphine Allergy Severe Hives Verified 09/14/17 21:46 naproxen Allergy Severe Hives Verified 09/14/17 21:46 piperacillin Allergy Severe Hives Verified 09/14/17 21:46 tazobactam Allergy Severe Hives Verified 07/24/17 01:33 adhesive tape Allergy Rash, Verified 09/14/17 21:44 Localized shellfish derived Allergy Difficulty Verified 09/14/17 21:46 Breathing Home Medications Medication Instructions Recorded Confirmed Type aspirin 81 mg PO DAILY 09/14/17 09/14/17 History ferrous sulfate 15 mg PO BID 09/14/17 09/14/17 History fluoxetine 20 mg PO DAILY 09/14/17 09/14/17 History lorazepam 1 mg PO BID 09/14/17 09/14/17 History methocarbamol 500 mg PO QID 09/14/17 09/14/17 History oxycodone 10 mg PO Q4-6H PRN 09/14/17 09/14/17 History pantoprazole [Protonix] 40 mg PO DAILY 09/14/17 09/14/17 History topiramate [Topamax] 50 mg PO DAILY 09/14/17 09/14/17 History warfarin [Coumadin] 5 mg PO DAILY 09/14/17 09/14/17 History warfarin [Coumadin] 5 mg PO DAILY 09/14/17 09/14/17 History Exam Vital signs: Vital Signs 09/14/17 21:26 09/14/17 21:28 09/14/17 21:55 Temperature 103.6 F H 103.6 F H Pulse Rate 127 H 118 H 115 H Respiratory Rate 18 22 Blood Pressure 133/51 L 121/54 L Pulse Oximetry 94 L 95 95 09/14/17 22:34 09/14/17 22:51 09/14/17 22:55 Temperature 102.6 F H 100.7 F H Pulse Rate 102 H 92 H Respiratory Rate 22 16 Blood Pressure 132/77 Pulse Oximetry 96 09/15/17 00:03 09/15/17 01:05 09/15/17 03:29 Temperature 99.2 F 98.5 F Pulse Rate 96 H 82 Respiratory Rate 16 18 16 Blood Pressure 136/72 109/49 L Pulse Oximetry 96 09/15/17 04:00 09/15/17 04:27 09/15/17 05:24 Temperature 98.8 F Pulse Rate 66 88 Respiratory Rate 17 3 L Blood Pressure 106/51 L Pulse Oximetry 94 L 09/15/17 08:00 09/15/17 08:24 09/15/17 09:00 Temperature 97.5 F L Pulse Rate 60 62 Respiratory Rate 19 16 Blood Pressure 97/52 L Pulse Oximetry 97 09/15/17 09:42 09/15/17 10:00 09/15/17 11:00 Temperature Pulse Rate 62 64 Respiratory Rate 21 17 Blood Pressure 96/50 L 96/50 L Pulse Oximetry 09/15/17 12:00 09/15/17 12:22 09/15/17 12:24 Temperature Pulse Rate 62 62 62 Respiratory Rate 16 16 14 Blood Pressure 72/32 L 85/33 L Pulse Oximetry 96 09/15/17 12:25 09/15/17 13:00 09/15/17 14:00 Temperature Pulse Rate 62 60 60 Respiratory Rate 16 11 L 13 Blood Pressure 80/43 L Pulse Oximetry 98 09/15/17 14:31 09/15/17 15:00 09/15/17 15:09 Temperature Pulse Rate 60 60 60 Respiratory Rate 18 15 18 Blood Pressure 90/47 L 128/67 Pulse Oximetry 09/15/17 15:39 09/15/17 16:00 09/15/17 16:09 Temperature Pulse Rate 62 62 60 Respiratory Rate 15 17 20 Blood Pressure 134/57 L 93/48 L Pulse Oximetry 09/15/17 17:11 Temperature Pulse Rate Respiratory Rate 16 Blood Pressure Pulse Oximetry Intake & Output 09/14/17 09/15/17 09/15/17 18:59 06:59 18:59 Intake Total 1350 / 1350 3200 / 3200 Output Total 100 / 100 Balance 1250 / 1250 3200 / 3200 Weight 71 kg 73 kg Intake: IV 1350 / 1350 3200 / 3200 NS Inj 1,000 ML @ 100 mls/hr IV 2100 / 2100 .CONT .Q10H HENRI Rx#:[id number] Maxipime Inj 2,000 MG In NS Inj 100 / 100 100 / 100 100 ML @ 200 mls/hr IV.SIG Q8H HENRI Rx#:[id number] NS Inj 1,000 ML @ Wide Open IV. 1000 / 1000 SIG BOLUS ONE Rx#:[id number] Vancomycin Inj 1,000 MG In NS 250 / 250 Inj 250 ML @ 250 mls/hr IV.SIG STAT STA Rx#:[id number] Output: Urine 100 / 100 Other: # Voids 2 Date of Last Bowel Movement 09/14/17 09/14/17 Weight On Admission 71 kg - Constitutional no acute distress, average body habitus - Routine HEENT Exam Head: Present: normocephalic, atraumatic Eye: Present: EOMI, PERRL, normal accommodation ENT: Present: mucous membranes moist, oropharynx clear - Routine Neck Exam Present: supple, full ROM - Routine Respiratory Exam Present: CTA bilaterally Comments: normal air entry no accesory muscle use - Routine Cardiovascular Exam Present: RRR, S1 (abscent ), S2, murmur (holosystolic 3/6 mur mur) Comments: well perfused perifery refill brisk pacer in place L chest, + area tender to palpation incision well healed no fluctuance no drainage - Routine Abdominal Exam Present: soft, normoactive bowel sounds Comments: not tender not distended, nno hepatosplenomegaly no masses - Routine Extremities Exam Present: full ROM, normal capillary refill Comments: no cyanosis clubbing no edema - Routine Skin Exam Present: intact, scars (median sternotomy) - Routine Neurological Exam Present: alert, oriented X3, CN II-XII intact, moving all extremities, vision grossly intact, hearing grossly intact, normal speech - Routine Psychiatric Exam Present: normal affect, normal thought process Results - Labs CBC & Chem 7: 10/25/17 11:26 10/30/17 07:03 Labs: Laboratory Results - last 24 hr 09/14/17 09/14/17 09/14/17 21:50 21:50 21:50 CBC w Diff Auto diff final WBC 17.8 H RBC 4.00 Hgb 11.5 L Hct 35.9 MCV 89.6 MCH 28.8 MCHC 32.2 RDW 15.4 Plt Count 340 MPV 8.5 Neut % (Auto) 94.3 H Lymph % (Auto) 4.7 L [place] % (Auto) 0.3 Eos % (Auto) 0.5 Baso % (Auto) 0.2 Neut # (Auto) 16.8 H Lymph # (Auto) 0.8 L [place] # (Auto) 0.1 Eos # (Auto) 0.1 Baso # (Auto) 0.0 WBC Differential . Differential Comment . PT 11.6 INR 1.1 APTT 25.5 Sodium 133 L Potassium 3.6 Chloride 102 Carbon Dioxide 25.0 Anion Gap 6 BUN 14 Creatinine 0.88 Estimated GFR 77 L Random Glucose 103 Lactic Acid Calcium 8.2 L Total Bilirubin 1.7 H AST 21 ALT 27 Alkaline Phosphatase 166 H Troponin I Less than 0.02 L Total Protein 7.5 Albumin 3.5 Urine Color Urine Clarity Urine pH Ur Specific [place] Urine Protein Urine Glucose (UA) Urine Ketones Urine Occult Blood Urine Nitrate Urine Bilirubin Urine Urobilinogen Ur Leukocyte Esterase Urine RBC Urine WBC Ur Squamous Epith Cells Micro UA Comment Urine Culture Comments 09/14/17 09/14/17 09/15/17 21:50 22:10 04:43 CBC w Diff Auto diff final WBC 11.4 H RBC 3.68 L Hgb 10.6 L Hct 32.7 L MCV 89.0 MCH 28.8 MCHC 32.4 RDW 15.6 Plt Count 295 MPV 8.6 Neut % (Auto) 82.9 H Lymph % (Auto) 12.7 [place] % (Auto) 2.7 Eos % (Auto) 0.2 Baso % (Auto) 1.5 Neut # (Auto) 9.5 H Lymph # (Auto) 1.4 [place] # (Auto) 0.3 Eos # (Auto) 0.0 Baso # (Auto) 0.2 WBC Differential . Differential Comment . PT INR APTT Sodium Potassium Chloride Carbon Dioxide Anion Gap BUN Creatinine Estimated GFR Random Glucose Lactic Acid 1.0 Calcium Total Bilirubin AST ALT Alkaline Phosphatase Troponin I Total Protein Albumin Urine Color Summers H Urine Clarity Clear Urine pH 6.0 Ur Specific [place] 1.020 Urine Protein Negative Urine Glucose (UA) Negative Urine Ketones Negative Urine Occult Blood Negative Urine Nitrate Negative Urine Bilirubin Negative Urine Urobilinogen 4.0 H Ur Leukocyte Esterase Negative Urine RBC 0-3 Urine WBC 0-5 Ur Squamous Epith Cells 0-5 Micro UA Comment Culture not ind Urine Culture Comments Culture not ind 09/15/17 09/15/17 09/15/17 04:43 11:33 17:10 CBC w Diff WBC RBC Hgb Hct MCV MCH MCHC RDW Plt Count MPV Neut % (Auto) Lymph % (Auto) [place] % (Auto) Eos % (Auto) Baso % (Auto) Neut # (Auto) Lymph # (Auto) [place] # (Auto) Eos # (Auto) Baso # (Auto) WBC Differential Differential Comment PT 14.7 H INR 1.5 APTT 41.9 H D Sodium 136 Potassium 3.7 Chloride 106 Carbon Dioxide 24.6 Anion Gap 5 BUN 12 Creatinine 0.70 Estimated GFR Greater than 89 Random Glucose 91 Lactic Acid Calcium 7.7 L Total Bilirubin AST ALT Alkaline Phosphatase Troponin I Total Protein Albumin Urine Color Urine Clarity Urine pH Ur Specific [place] Urine Protein Urine Glucose (UA) Urine Ketones Urine Occult Blood Urine Nitrate Urine Bilirubin Urine Urobilinogen Ur Leukocyte Esterase Urine RBC Urine WBC Ur Squamous Epith Cells Micro UA Comment Urine Culture Comments - Imaging Impressions Chest X-Ray 09/14/17 21:28 CONCLUSION: The lungs are clear. No evidence of pneumothorax. Soft Tissue Ultrasound 09/15/17 00:00 CONCLUSION: 1. Negative for abscess or fluid collection. Assessment and Plan - Plan Recurrent endocarditis, including PVE sp Mitral and tricuspid valves replacements Fever TEnderness and swelling of pacemeaker pocket, r/o infeciton cont cefepime, vancomycin agree with plan for TAO fu blood clx untill final dw pt dw Alex Elder PA-C
[2017-09-15] MEDS ORDERED: Heparin - SQ 10,000 UNITS/ML Vial SQ SCH (21:00)
--- NOTE | 2017-09-16 00:17 | ECG ---
Date Performed: 09/14/2017 Time Performed: 21:25:44 PTAGE: 26 years EKG: SINUS TACHYCARDIA POSSIBLE RIGHT VENTRICULAR CONDUCTION DELAY NON-SPECIFIC ST/T WAVE CHANGE S ABNORMAL RHYTHM ECG INTERPRETATION BASED ON A DEFAULT AGE OF 40 YEARS Compared to PREVIOUS TRACING , rate has increased DOCTOR: Alen Tavares Interpretating Date/Time 09/16/2017 00:16:22
[2017-09-16] MEDS: Heparin 10,000 UNITS/10 ML Vial (for IV use) IV.PUSH PRN ×2 (00:31→23:55)
[2017-09-16] MEDS: HYDROmorphone PF Inj 2 MG/ML Vial IV.PUSH PRN ×5 (03:25→23:42)
[2017-09-16] MEDS: Sod Chloride 0.9% Inj 1,000 ML IV.CONT SCH ×2 (06:29→17:12)
[2017-09-16 06:42] LABS: Hematocrit 30.7 % (35.0-46.0); Hemoglobin 9.9 gm/dL (11.6-15.3); Mean Corpuscular HGB Conc 32.3 % (32.0-36.0); Mean Corpuscular Hemoglobin 28.3 pg (27.0-34.0); Mean Corpuscular Volume 87.6 fL (80.0-100.0); Mean Platelet Volume 8.4 fL (7.0-11.0); Platelet Count 259 th/mm3 (150-450); Red Blood Count 3.51 mil/mm3 (4.00-5.30); Red Cell Distribution Width 16.3 % (11.6-17.2); White Blood Count 7.2 th/mm3 (4.0-11.0)
[2017-09-16 06:56] LABS: Carbon Dioxide 22.9 meq/L (21.0-32.0); Potassium 3.8 meq/L (3.5-5.1)
[2017-09-16] MEDS ORDERED: Metoprolol Tartrate 25 MG Tablet PO SCH (09:00)
[2017-09-16] MEDS ORDERED: Chlorhexidine Gluconate 2% 1 Pack (2 Cloths) TOPICAL SCH (09:00)
[2017-09-16] MEDS ORDERED: Sodium Chlor 0.9% Inj 500 ML IV.SIG SCH (09:00)
[2017-09-16] MEDS ORDERED: Vancomycin Inj 1,500 MG in Sodium Chlor 0.9% Inj 500 ML IV.SIG ONE (14:00)
[2017-09-16] MEDS: Senna/Docusate Sodium 8.6/50 MG Tablet PO SCH ×2 (15:29→20:35)
[2017-09-16] MEDS: Heparin Drip 25,000 UNIT/250 ML BAG IV.CONT PRN (17:12)
--- NOTE | 2017-09-16 18:26 | P.PN ---
Physical Exam Vital signs: Vital Signs 09/15/17 20:00 09/15/17 21:00 09/15/17 22:00 Temperature 98.2 F Pulse Rate 67 68 70 Respiratory Rate 16 Blood Pressure 102/68 Pulse Oximetry 100 09/15/17 23:00 09/15/17 23:20 09/16/17 00:00 Temperature 98.4 F Pulse Rate 73 74 Respiratory Rate 16 16 16 Blood Pressure 110/66 Pulse Oximetry 100 09/16/17 01:00 09/16/17 02:00 09/16/17 03:00 Temperature 98.3 F Pulse Rate 79 80 68 Respiratory Rate 16 Blood Pressure 115/75 Pulse Oximetry 100 09/16/17 04:00 09/16/17 05:00 09/16/17 06:00 Temperature Pulse Rate 75 79 82 Respiratory Rate Blood Pressure Pulse Oximetry 09/16/17 07:00 09/16/17 08:00 09/16/17 09:00 Temperature 99.5 F Pulse Rate 92 H 82 82 Respiratory Rate 30 H Blood Pressure 101/58 L Pulse Oximetry 92 L 92 L 09/16/17 10:00 09/16/17 15:26 Temperature 98.1 F Pulse Rate 74 70 Respiratory Rate 20 Blood Pressure 129/52 L Pulse Oximetry 92 L Intake & Output 09/15/17 09/16/17 09/16/17 18:59 06:59 18:59 Intake Total 3200 / 3200 1580 / 1580 1350 / 1350 Balance 3200 / 3200 1580 / 1580 1350 / 1350 Weight 73 kg 75 kg Intake: IV 3200 / 3200 1100 / 1100 1350 / 1350 Heparin/D5W 25,000 U/250 mL 25, 250 / 250 000 unit In 250 ml @ 900 UNITS/ HR 9 mls/hr IV.CONT TITRATE PRN Rx#:[id number] NS Inj 1,000 ML @ 100 mls/hr IV 2100 / 2100 1000 / 1000 1000 / 1000 .CONT .Q10H HENRI Rx#:[id number] Maxipime Inj 2,000 MG In NS Inj 100 / 100 100 / 100 100 / 100 100 ML @ 200 mls/hr IV.SIG Q8H HENRI Rx#:[id number] Oral 480 / 480 Other: # Voids 3 Date of Last Bowel Movement 09/14/17 # Bowel Movements 0 Narrative: Subjective: In bed appear anxious, tachycardic. Had soem lw grade fevers. no n/v/d/c. Chest pain and some sob however sattign well. no n/v/d/c. Physical exam: GENERAL: Pleasant young female, tachycardia , a little bit anxious CARDIOVASCULAR: Tachycardic. Regular rate and rhythm without murmurs, gallops, or rubs. RESPIRATORY: Breath sounds equal bilaterally. No accessory muscle use. GASTROINTESTINAL: Abdomen soft, non-tender, nondistended. MUSCULOSKELETAL: No cyanosis, or edema. BACK: Nontender without obvious deformity. No CVA tenderness. Assessment and Plan Fever of unknown origin Most serious considerations would include endocarditis versus pacemaker site infection Covered broadly with cefepime and vancomycin Blood cultures drawn and pending Normal lactic acid level on admission Follow leukocyte trend Remain in ICU given the high risk of etiologies 09/16/17 plan for TAO by Dr Annamarie carpio to r/o endocarditis Pacemaker site pain Possible source of infection Add p.o. and IV pain medication Cover broadly with cefepime and vancomycin Soft tissue ultrasound of pacemaker site DVT prophylaxis Heparin Discussed with the patient, nurse Dr Britney PERLA and Dr Annamarie carpio Results - Labs CBC & Chem 7: 09/16/17 06:22 09/16/17 06:22 Laboratory Results - last 24 hr 09/15/17 09/16/17 09/16/17 23:12 06:22 06:22 WBC 7.2 RBC 3.51 L Hgb 9.9 L Hct 30.7 L MCV 87.6 MCH 28.3 MCHC 32.3 RDW 16.3 Plt Count 259 MPV 8.4 APTT 31.5 H D Sodium 140 Potassium 3.8 Chloride 110 H Carbon Dioxide 22.9 Anion Gap 7 BUN 13 Creatinine 0.79 Estimated GFR 87 L Random Glucose 89 Calcium 8.0 L 09/16/17 06:22 WBC RBC Hgb Hct MCV MCH MCHC RDW Plt Count MPV APTT 44.2 H D Sodium Potassium Chloride Carbon Dioxide Anion Gap BUN Creatinine Estimated GFR Random Glucose Calcium Microbiology 09/14/17 21:45 Blood - Peripheral Aerobic Blood Culture - Preliminary No growth in 2 days 09/14/17 21:45 Blood - Peripheral Anaerobic Blood Culture - Preliminary No growth in 2 days 09/14/17 21:55 Blood - Peripheral Aerobic Blood Culture - Preliminary No growth in 2 days 09/14/17 21:55 Blood - Peripheral Anaerobic Blood Culture - Preliminary No growth in 2 days 09/14/17 21:40 Blood - Peripheral Aerobic Blood Culture - Preliminary No growth in 2 days 09/14/17 21:40 Blood - Peripheral Anaerobic Blood Culture - Preliminary No growth in 2 days 09/14/17 21:50 Blood - Peripheral Aerobic Blood Culture - Preliminary No growth in 2 days 09/14/17 21:50 Blood - Peripheral Anaerobic Blood Culture - Preliminary No growth in 2 days
[2017-09-16] MEDS: Vancomycin Inj 1,500 MG in Sodium Chlor 0.9% Inj 500 ML IV.SIG SCH (19:08)
[2017-09-16] MEDS: Topiramate 25 MG Tablet PO SCH (20:35)
[2017-09-16] MEDS: levETIRAcetam 500 MG Tablet PO SCH (20:35)
--- NOTE | 2017-09-16 20:46 | XR ---
EXAM DATE: 09/16/2017 8:10 PM EDT AGE/SEX: 26 years / Female INDICATIONS: Abdominal pain. CLINICAL DATA: This is the patient's initial encounter. Patient reports that signs and symptoms have been present for 3 days and indicates a pain score of 8/10. MEDICAL/SURGICAL HISTORY: None. None. [place] [facility] [place] [facility] [place] 12/10/2015. . FINDINGS: No dilated bowel seen. There is haziness to the abdomen with lack of definition of the splenic and l iver margins which can be seen with ascites. There is a T-shaped IUD in place. CONCLUSION: Nonspecific KUB. Electronically signed by: Alex Tee MD 09/16/2017 8:45 PM EDT
--- NOTE | 2017-09-16 20:56 | ECHRPT ---
Indication: POSS SEPSIS, ENDOCARDITIS CONCLUSIONS The left ventricular systolic function is low normal with an estimated ejection fraction in the rang e of 50- 55%. Normally functioning mechanical mitral valve prosthesis. Trace aortic valve regurgitation. Mechanical tricuspid valve appears to be functioning normally. BP: / HR: Rhythm: Sinus Technical Quality:Fair Medications Complications Proc. Components Anesthesia at bedside for sedation FINDINGS LEFT VENTRICLE The left ventricular systolic function is low normal with an estimated ejection fraction in the rang e of 50- 55%. RIGHT VENTRICLE The right ventricle was not well visualized. LEFT ATRIUM The left atrial size is normal. RIGHT ATRIUM The right atrial size is normal. ATRIAL APPENDAGES Normal left atrial appendage size with no evidence of thrombus formation. ATRIAL SEPTUM Normal atrial septal thickness without atrial level shunting by limited color doppler interrogation. AORTA Descending aorta with no evidence of dissection MITRAL VALVE Normally functioning mechanical mitral valve prosthesis. AORTIC VALVE Trileaflet aortic valve. Trace aortic valve regurgitation. No aortic valve stenosis. TRICUSPID VALVE Mechanical tricuspid valve appears to be functioning normally VESSELS The pulmonary valve is not well visualized. Alen Tavares DO (Electronically Signed) Final Date:16 September 2017 20:55
--- NOTE | 2017-09-16 21:16 | MB ---
cc: Alen Tavares DO DATE: 09/16/2017 REASON FOR CONSULTATION: History of mechanical mitral and tricuspid valve replacement, with fevers and malaise. HISTORY OF PRESENT ILLNESS: Alissa Bazan is a 26-year-old female with a distant history of IV drug abuse, who presented to [facility] Emergency Room due to fevers and malaise. She had a similar presentation around 6 weeks ago and, at that time, underwent a TAO by Dr. Lauren to rule out endocarditis. Since that time, she has been on antibiotics, but she has noticed for the last 10 days, she is having malaise and low-grade fevers. She states that most of the time these have been around 100-100.1, although she said that she had a fever of 104.5. During this, she did become confused. Her family found her on the floor yesterday evening shaking and disoriented. In seeing her, she is currently hemodynamically stable, without chest pain or shortness of breath, just overall exhausted. PAST MEDICAL HISTORY: 1. History of bacterial endocarditis (2010, 2016). 2. Hepatitis C. 3. Cirrhosis with ascites. 4. History of respiratory failure requiring intubation and tracheostomy. 5. Removal of tracheostomy. 6. History of renal failure. 7. History of seizures. 8. History of spontaneous bacterial peritonitis. 9. History of intracranial abscess. 10. Questionable history of a cardiomyopathy. PAST SURGICAL HISTORY: 1. Mitral and tricuspid valve replacement (2010), with secondary replacement in 2016 with mechanical valves. 2. . 3. Cholecystectomy. 4. Splenectomy. 5. Liver biopsy. 6. Tracheostomy. 7. Multiple paracentesis. 8. Carpal tunnel surgery, right wrist. 9. Pacemaker placement. ALLERGIES: FISH CONTAINING PRODUCTS, MORPHINE, CODEINE, NAPROXEN, ADHESIVE TAPE, TAZOBACTAM, GABAPENTIN, PIPERACILLIN, SHELLFISH. MEDICATIONS: 1. Coumadin 5 mg daily. 2. Aspirin 81 mg daily. 3. Methocarbamol 500 mg q.i.d. 4. Ativan 1 mg b.i.d. 5. Iron 15 mg b.i.d. 6. Topamax 50 mg daily. 7. Oxycodone 10 mg every 4-6 hours as needed. 8. Protonix 40 mg daily. 9. Fluoxetine 20 mg daily. FAMILY HISTORY: Denies sudden cardiac within the family. SOCIAL HISTORY: The patient denies tobacco. She rarely drinks alcohol. She does have a history of IV drug abuse, with the last use in 2013 per the patient. REVIEW OF SYSTEMS: Fourteen systems were reviewed including osteopathic. Pertinent positives and negatives above, otherwise negative. PHYSICAL EXAMINATION: VITAL SIGNS: Temperature 99.5, heart rate 92, blood pressure 101/58, respirations 20, pulse oximetry 92% on room air. GENERAL: The patient appears well, in no acute distress. Alert, awake and oriented x 3. HEENT: Extraocular muscles intact. Mucous membranes moist. NECK: Supple. No JVD at 45 degrees. No carotid bruits heard bilaterally. Carotid upstroke is brisk in nature. HEART: Regular rate and rhythm. Positive first and second heart sounds with a metallic click noted. LUNGS: Clear to auscultation bilaterally. No wheezes, rales or rhonchi. ABDOMEN: Soft, nontender, nondistended. No organomegaly noted. EXTREMITIES: Show no clubbing, cyanosis or edema. Femoral and distal pulses intact bilaterally. NEUROLOGIC: No focal deficits. SKIN: Warm, dry and intact. OSTEOPATHIC: No kyphoscoliosis, lordosis or paraspinal tender points. LABORATORY DATA: Hemoglobin 9.9, hematocrit 30.7, platelets 259. Potassium 3.8, BUN 13, creatinine 0.79. Troponin less than 0.02. ECHOCARDIOGRAM: Sinus tachycardia, incomplete right bundle branch block, nonspecific ST-T wave changes. IMPRESSION: 1. Fever/malaise. 2. Mechanical mitral and tricuspid valve replacement. 3. Subtherapeutic international normalized ratio. 4. History of intravenous drug abuse. 5. History of bacterial endocarditis. RECOMMENDATIONS: 1. Ms. Bazan presented with fever and malaise and there is a concern, as always, with endocarditis. 2. She is also subtherapeutic on her INR and we should evaluate her mechanical valves for possible complications due to this. 3. We will plan on doing a transesophageal echocardiogram to further evaluate her valves, as well as her pacemaker for endocarditis. 4. She has been placed on a heparin drip and she should not be discharged until her INR levels are above goal. 5. She states that she has been taking her Coumadin, although an INR of 1.1 goes against this. 6. Further recommendations will be made after transesophageal echocardiogram. Risks, benefits and alternatives have been explained to her and she consents to such. Thank you for allowing me to see Alissa Beni. If there are any questions, please do not hesitate to call. DO ODALIS Ariza/XENIA , 08:45 PM , 09:14 PM
--- NOTE | 2017-09-16 22:56 | P.PNID ---
Subjective Remarks: pt was seen earlier today around 1730 cont to c/o pain @ pacer site N fever TAO was done - negative for vegetations BC w/o growth @ 2 days Antibiotics: vancomycin cefepime Allergies/Adverse Reactions: Allergies codeine Allergy (Severe, Verified 09/14/17 21:46) HIVES/VOMITING Fish Containing Products Allergy (Severe, Verified 09/14/17 21:46) THROAT SWOLLEN/HIVES gabapentin Allergy (Severe, Verified 09/14/17 21:46) Hives morphine Allergy (Severe, Verified 09/14/17 21:46) Hives naproxen Allergy (Severe, Verified 09/14/17 21:46) Hives piperacillin Allergy (Severe, Verified 09/14/17 21:46) Hives tazobactam Allergy (Severe, Verified 07/24/17 01:33) Hives adhesive tape Allergy (Verified 09/14/17 21:44) Rash, Localized shellfish derived Allergy (Verified 09/14/17 21:46) Difficulty Breathing Objective Vital Signs 09/15/17 23:00 09/15/17 23:20 09/16/17 00:00 Temperature 98.4 F Pulse Rate 73 74 Respiratory Rate 16 16 16 Blood Pressure 110/66 Pulse Oximetry 100 09/16/17 01:00 09/16/17 02:00 09/16/17 03:00 Temperature 98.3 F Pulse Rate 79 80 68 Respiratory Rate 16 Blood Pressure 115/75 Pulse Oximetry 100 09/16/17 04:00 09/16/17 05:00 09/16/17 06:00 Temperature Pulse Rate 75 79 82 Respiratory Rate Blood Pressure Pulse Oximetry 09/16/17 07:00 09/16/17 08:00 09/16/17 09:00 Temperature 99.5 F Pulse Rate 92 H 82 82 Respiratory Rate 30 H Blood Pressure 101/58 L Pulse Oximetry 92 L 92 L 09/16/17 10:00 09/16/17 11:00 09/16/17 12:00 Temperature Pulse Rate 74 70 74 Respiratory Rate Blood Pressure Pulse Oximetry 09/16/17 13:00 09/16/17 14:00 09/16/17 15:00 Temperature Pulse Rate 66 72 68 Respiratory Rate Blood Pressure Pulse Oximetry 09/16/17 15:26 09/16/17 17:00 09/16/17 18:00 Temperature 98.1 F Pulse Rate 70 70 74 Respiratory Rate 20 Blood Pressure 129/52 L Pulse Oximetry 92 L Intake & Output 09/16/17 09/16/17 09/17/17 06:59 18:59 06:59 Intake Total 1580 / 1580 1964 Output Total 300 / 300 Balance 1580 / 1580 1665 / 1665 Weight 75 kg Intake: IV 1100 / 1100 1964 Heparin/D5W 25,000 U/250 mL 25, 250 / 250 000 unit In 250 ml @ 900 UNITS/ HR 9 mls/hr IV.CONT TITRATE PRN Rx#:[id number] NS Inj 1,000 ML @ 100 mls/hr IV 1000 / 1000 1000 / 1000 .CONT .Q10H [facility] Rx#:[id number] Maxipime Inj 2,000 MG In NS Inj 100 / 100 200 / 200 100 ML @ 200 mls/hr IV.SIG Q8H [facility] Rx#:[id number] Vancomycin Inj 1,500 MG In NS 515 / 515 Inj 500 ML @ 250 mls/hr IV.SIG ONCE ONE Rx#:[id number] Oral 480 / 480 Output: Urine 300 / 300 Other: # Voids 3 # Bowel Movements 0 09/14/17 21:45 Blood - Peripheral Aerobic Blood Culture - Preliminary No growth in 2 days 09/14/17 21:45 Blood - Peripheral Anaerobic Blood Culture - Preliminary No growth in 2 days 09/14/17 21:55 Blood - Peripheral Aerobic Blood Culture - Preliminary No growth in 2 days 09/14/17 21:55 Blood - Peripheral Anaerobic Blood Culture - Preliminary No growth in 2 days 09/14/17 21:40 Blood - Peripheral Aerobic Blood Culture - Preliminary No growth in 2 days 09/14/17 21:40 Blood - Peripheral Anaerobic Blood Culture - Preliminary No growth in 2 days 09/14/17 21:50 Blood - Peripheral Aerobic Blood Culture - Preliminary No growth in 2 days 09/14/17 21:50 Blood - Peripheral Anaerobic Blood Culture - Preliminary No growth in 2 days 09/14/17 23:30 Nasal Wash Influenza Types A,B Antigen - Final Negative for FLU A and B antigen Infection due to influenza A or B cannot be ruled out since the antigen present in the sample may be below the detection limit of the test. Lab - Hematology Results 09/15/17 09/16/17 04:43 06:22 CBC w Diff Auto diff final WBC 11.4 H 7.2 RBC 3.68 L 3.51 L Hgb 10.6 L 9.9 L Hct 32.7 L 30.7 L MCV 89.0 87.6 MCH 28.8 28.3 MCHC 32.4 32.3 RDW 15.6 16.3 Plt Count 295 259 MPV 8.6 8.4 Neut % (Auto) 82.9 H Lymph % (Auto) 12.7 [place] % (Auto) 2.7 Eos % (Auto) 0.2 Baso % (Auto) 1.5 Neut # (Auto) 9.5 H Lymph # (Auto) 1.4 [place] # (Auto) 0.3 Eos # (Auto) 0.0 Baso # (Auto) 0.2 WBC Differential . Differential Comment . Lab - Chemistry Results 09/15/17 09/16/17 04:43 06:22 Sodium 136 140 Potassium 3.7 3.8 Chloride 106 110 H Carbon Dioxide 24.6 22.9 Anion Gap 5 7 BUN 12 13 Creatinine 0.70 0.79 Estimated GFR Greater than 89 87 L Random Glucose 91 89 Calcium 7.7 L 8.0 L Imaging: ITS Impressions Chest X-Ray 09/14/17 21:28 CONCLUSION: The lungs are clear. No evidence of pneumothorax. Soft Tissue Ultrasound 09/15/17 00:00 CONCLUSION: 1. Negative for abscess or fluid collection. Abdomen X-Ray 09/16/17 00:00 CONCLUSION: Nonspecific KUB. Physical Exam: GENERAL: NAD SKIN: Warm and dry. HEAD: Atraumatic. Normocephalic. EYES: Pupils equal and round. No scleral icterus. No injection or drainage. ENT: No nasal bleeding or discharge. Mucous membranes pink and moist. NECK: Trachea midline. No JVD. CARDIOVASCULAR: Regular rate and rhythm. Pacemaker in place with mild swelling around it, no fluctuance and tenderness to palpation no redness RESPIRATORY: No accessory muscle use. Clear to auscultation. Breath sounds equal bilaterally. GASTROINTESTINAL: Abdomen soft, non-tender, moderately distended. Hepatic and splenic margins not palpable. MUSCULOSKELETAL: Extremities without clubbing, cyanosis, or edema. No obvious deformities. NEUROLOGICAL: Awake and alert. No obvious cranial nerve deficits. Motor grossly within normal limits. Five out of 5 muscle strength in the arms and legs. Normal speech. PSYCHIATRIC: Appropriate mood and affect; insight and judgment normal. 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
[2017-09-17] MEDS: Vancomycin Inj 1,100 MG in Sodium Chlor 0.9% Inj 250 ML IV.SIG SCH ×2 (01:48→13:26)
[2017-09-17] MEDS: Sod Chloride 0.9% Inj 1,000 ML IV.CONT SCH ×2 (01:49→13:29)
[2017-09-17] MEDS: HYDROmorphone PF Inj 2 MG/ML Vial IV.PUSH PRN ×2 (03:59→08:20)
[2017-09-17 07:01] LABS: Baso # (Auto) 0.1 th/mm3 (0.0-0.2); Baso % (Auto) 1.2 % (0.0-2.0); Eos # (Auto) 0.5 th/mm3 (0.0-0.4); Eos % (Auto) 6.3 % (0.0-4.0); Hematocrit 29.3 % (35.0-46.0); Hemoglobin 9.6 gm/dL (11.6-15.3); Lymph % (Auto) 37.2 % (9.0-44.0); Mean Corpuscular HGB Conc 32.7 % (32.0-36.0); Mean Corpuscular Hemoglobin 28.4 pg (27.0-34.0); Mean Corpuscular Volume 87.1 fL (80.0-100.0); Mono # (Auto) 0.8 th/mm3 (0.0-0.9); Mono % (Auto) 9.8 % (0.0-8.0); Neut # (Auto) 3.6 th/mm3 (1.8-7.7); Neut % (Auto) 45.5 % (16.0-70.0); Platelet Count 269 th/mm3 (150-450); Red Blood Count 3.37 mil/mm3 (4.00-5.30); Red Cell Distribution Width 16.3 % (11.6-17.2)
[2017-09-17 07:23] LABS: Anion Gap 8 meq/L (5-15); Blood Urea Nitrogen 8 mg/dL (7-18); Calcium 8.2 mg/dL (8.5-10.1); Carbon Dioxide 23.7 meq/L (21.0-32.0); Chloride 109 meq/L (98-107); Glomerular Filtration Rate Greater Than 89 mL/min (>89); Glucose,Random 74 mg/dL (74-106); Potassium 3.8 meq/L (3.5-5.1); Sodium 141 meq/L (136-145)
[2017-09-17] MEDS: Topiramate 25 MG Tablet PO SCH ×2 (08:19→20:05)
[2017-09-17] MEDS: FLUoxetine 20 MG Capsule PO SCH (08:20)
[2017-09-17] MEDS: levETIRAcetam 500 MG Tablet PO SCH ×2 (08:20→20:06)
[2017-09-17] MEDS: Senna/Docusate Sodium 8.6/50 MG Tablet PO SCH ×2 (08:24→20:06)
[2017-09-17] MEDS ORDERED: Warfarin Consult Pharmacy 1 EACH OTHER SCH (09:40)
[2017-09-17] MEDS: Heparin Drip 25,000 UNIT/250 ML BAG IV.CONT PRN (11:11)
--- NOTE | 2017-09-17 11:19 | P.PNCA ---
Subjective Interval history: No events overnight Feels overall a little better Physical Exam Vital signs: Vital Signs 09/16/17 12:00 09/16/17 13:00 09/16/17 14:00 Temperature Pulse Rate 74 66 72 Respiratory Rate Blood Pressure Pulse Oximetry 09/16/17 15:00 09/16/17 15:26 09/16/17 17:00 Temperature 98.1 F Pulse Rate 68 70 70 Respiratory Rate 20 Blood Pressure 129/52 L Pulse Oximetry 92 L 09/16/17 18:00 09/16/17 20:00 09/16/17 21:00 Temperature 98.4 F Pulse Rate 74 80 72 Respiratory Rate 18 Blood Pressure 153/64 H Pulse Oximetry 96 09/16/17 22:00 09/16/17 23:00 09/17/17 00:00 Temperature 98.4 F Pulse Rate 70 70 76 Respiratory Rate 18 Blood Pressure 158/78 H Pulse Oximetry 09/17/17 01:00 09/17/17 02:00 09/17/17 03:00 Temperature Pulse Rate 66 68 74 Respiratory Rate Blood Pressure Pulse Oximetry 09/17/17 04:00 09/17/17 05:00 09/17/17 06:00 Temperature 98.4 F Pulse Rate 83 78 80 Respiratory Rate 18 Blood Pressure 158/78 H Pulse Oximetry Intake & Output 09/16/17 09/17/17 09/17/17 18:59 06:59 18:59 Intake Total 1964 1340 / 1340 250 / 250 Output Total 300 / 300 1300 / 1300 Balance 1665 / 1665 40 / 40 250 / 250 Weight 76 kg Intake: IV 1964 1100 / 1100 250 / 250 Heparin/D5W 25,000 U/250 mL 25, 250 / 250 250 / 250 000 unit In 250 ml @ 900 UNITS/ HR 9 mls/hr IV.CONT TITRATE PRN Rx#:[id number] NS Inj 1,000 ML @ 100 mls/hr IV 1000 / 1000 1000 / 1000 .CONT .Q10H [facility] Rx#:[id number] Maxipime Inj 2,000 MG In NS Inj 200 / 200 100 / 100 100 ML @ 200 mls/hr IV.SIG Q8H [facility] Rx#:[id number] Vancomycin Inj 1,500 MG In NS 515 / 515 Inj 500 ML @ 250 mls/hr IV.SIG ONCE ONE Rx#:[id number] Oral 240 / 240 Output: Urine 300 / 300 1300 / 1300 Other: Date of Last Bowel Movement 09/14/17 09/16/17 Narrative: GENERAL: NAD, AAOx3 SKIN: Warm and dry. HEAD: Atraumatic. Normocephalic. EYES: Pupils equal and round. No scleral icterus. No injection or drainage. ENT: No nasal bleeding or discharge. Mucous membranes pink and moist. NECK: Trachea midline. No JVD. CARDIOVASCULAR: Regular rate and rhythm. RESPIRATORY: No accessory muscle use. Clear to auscultation. Breath sounds equal bilaterally. GASTROINTESTINAL: Abdomen soft, non-tender, nondistended. Hepatic and splenic margins not palpable. MUSCULOSKELETAL: Extremities without clubbing, cyanosis, or edema. No obvious deformities. NEUROLOGICAL: Awake and alert. No obvious cranial nerve deficits. Motor grossly within normal limits. Five out of 5 muscle strength in the arms and legs. Normal speech. PSYCHIATRIC: Appropriate mood and affect; insight and judgment normal. 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
[2017-09-17] MEDS ORDERED: Methocarbamol 500 MG Tablet PO SCH (13:00)
--- NOTE | 2017-09-17 14:24 | P.PN ---
Physical Exam Vital signs: Vital Signs 09/16/17 15:00 09/16/17 15:26 09/16/17 17:00 Temperature 98.1 F Pulse Rate 68 70 70 Respiratory Rate 20 Blood Pressure 129/52 L Pulse Oximetry 92 L 09/16/17 18:00 09/16/17 20:00 09/16/17 21:00 Temperature 98.4 F Pulse Rate 74 80 72 Respiratory Rate 18 Blood Pressure 153/64 H Pulse Oximetry 96 09/16/17 22:00 09/16/17 23:00 09/17/17 00:00 Temperature 98.4 F Pulse Rate 70 70 76 Respiratory Rate 18 Blood Pressure 158/78 H Pulse Oximetry 09/17/17 01:00 09/17/17 02:00 09/17/17 03:00 Temperature Pulse Rate 66 68 74 Respiratory Rate Blood Pressure Pulse Oximetry 09/17/17 04:00 09/17/17 05:00 09/17/17 06:00 Temperature 98.4 F Pulse Rate 83 78 80 Respiratory Rate 18 Blood Pressure 158/78 H Pulse Oximetry 09/17/17 07:00 09/17/17 08:00 09/17/17 09:00 Temperature 98.4 F Pulse Rate 71 70 68 Respiratory Rate 20 Blood Pressure 166/69 H Pulse Oximetry 96 09/17/17 10:00 09/17/17 11:00 Temperature 98.1 F Pulse Rate 72 66 Respiratory Rate 16 Blood Pressure 154/57 H Pulse Oximetry Intake & Output 09/16/17 09/17/17 09/17/17 18:59 06:59 18:59 Intake Total 1964 1601 / 1601 1350 / 1350 Output Total 300 / 300 1300 / 1300 Balance 1665 / 1665 301 / 301 1350 / 1350 Weight 76 kg Intake: IV 1964 1361 / 1361 1350 / 1350 Heparin/D5W 25,000 U/250 mL 25, 250 / 250 250 / 250 000 unit In 250 ml @ 900 UNITS/ HR 9 mls/hr IV.CONT TITRATE PRN Rx#:[id number] NS Inj 1,000 ML @ 100 mls/hr IV 1000 / 1000 1000 / 1000 1000 / 1000 .CONT .Q10H [facility] Rx#:[id number] Maxipime Inj 2,000 MG In NS Inj 200 / 200 100 / 100 100 / 100 100 ML @ 200 mls/hr IV.SIG Q8H [facility] Rx#:[id number] Vancomycin Inj 1,100 MG In NS 261 / 261 Inj 250 ML @ 250 mls/hr IV.SIG Q12H [facility] Rx#:[id number] Vancomycin Inj 1,500 MG In NS 515 / 515 Inj 500 ML @ 250 mls/hr IV.SIG ONCE ONE Rx#:[id number] Oral 240 / 240 Output: Urine 300 / 300 1300 / 1300 Other: Date of Last Bowel Movement 09/14/17 09/16/17 Narrative: Subjective: In bed appear anxious, tachycardic. Had soem lw grade fevers. no n/v/d/c. Chest pain and some sob however sattign well. no n/v/d/c. Physical exam: GENERAL: Pleasant young female, tachycardia , a little bit anxious CARDIOVASCULAR: Tachycardic. Regular rate and rhythm without murmurs, gallops, or rubs. RESPIRATORY: Breath sounds equal bilaterally. No accessory muscle use. GASTROINTESTINAL: Abdomen soft, non-tender, nondistended. MUSCULOSKELETAL: No cyanosis, or edema. BACK: Nontender without obvious deformity. No CVA tenderness. Assessment and Plan Fever of unknown origin Most serious considerations would include endocarditis versus pacemaker site infection Covered broadly with cefepime and vancomycin Blood cultures drawn and pending Normal lactic acid level on admission Follow leukocyte trend Remain in ICU given the high risk of etiologies 09/16/17 s/p TAO by Dr De Luna cardio no vegetations, r/o endocarditis Pacemaker site pain Possible source of infection Add p.o. and IV pain medication Cover broadly with cefepime and vancomycin, ID ff change abx per ID recommendations Soft tissue ultrasound of pacemaker site DVT prophylaxis Heparin Discussed with the patient, nurse Results - Labs CBC & Chem 7: 09/17/17 06:13 09/17/17 06:13 Laboratory Results - last 24 hr 09/16/17 09/17/17 09/17/17 21:33 06:13 06:13 WBC 8.0 RBC 3.37 L Hgb 9.6 L Hct 29.3 L MCV 87.1 MCH 28.4 MCHC 32.7 RDW 16.3 Plt Count 269 MPV 9.0 Neut % (Auto) 45.5 Lymph % (Auto) 37.2 Luna % (Auto) 9.8 H Eos % (Auto) 6.3 H Baso % (Auto) 1.2 Neut # (Auto) 3.6 Lymph # (Auto) 3.0 Luna # (Auto) 0.8 Eos # (Auto) 0.5 H Baso # (Auto) 0.1 WBC Differential . Differential Comment Auto diff final APTT 29.8 D Sodium 141 Potassium 3.8 Chloride 109 H Carbon Dioxide 23.7 Anion Gap 8 BUN 8 Creatinine 0.70 Estimated GFR Greater than 89 Random Glucose 74 Calcium 8.2 L 09/17/17 09/17/17 06:13 13:05 WBC RBC Hgb Hct MCV MCH MCHC RDW Plt Count MPV Neut % (Auto) Lymph % (Auto) Luna % (Auto) Eos % (Auto) Baso % (Auto) Neut # (Auto) Lymph # (Auto) Luna # (Auto) Eos # (Auto) Baso # (Auto) WBC Differential Differential Comment APTT 56.7 H D 51.0 H Sodium Potassium Chloride Carbon Dioxide Anion Gap BUN Creatinine Estimated GFR Random Glucose Calcium Microbiology 09/14/17 21:45 Blood - Peripheral Aerobic Blood Culture - Preliminary No growth in 3 days 09/14/17 21:45 Blood - Peripheral Anaerobic Blood Culture - Preliminary No growth in 3 days 09/14/17 21:55 Blood - Peripheral Aerobic Blood Culture - Preliminary No growth in 3 days 09/14/17 21:55 Blood - Peripheral Anaerobic Blood Culture - Preliminary No growth in 3 days 09/14/17 21:40 Blood - Peripheral Aerobic Blood Culture - Preliminary No growth in 3 days 09/14/17 21:40 Blood - Peripheral Anaerobic Blood Culture - Preliminary No growth in 3 days 09/14/17 21:50 Blood - Peripheral Aerobic Blood Culture - Preliminary No growth in 3 days 09/14/17 21:50 Blood - Peripheral Anaerobic Blood Culture - Preliminary No growth in 3 days - Imaging Impressions Abdomen X-Ray 09/16/17 00:00 CONCLUSION: Nonspecific KUB.
[2017-09-17] MEDS: LORazepam 1 MG Tablet PO SCH (20:06)
[2017-09-17] MEDS ORDERED: FERROUS SULFATE 15 MG PO SCH (21:00)
[2017-09-18] MEDS ORDERED: VANCOMYCIN TROUGH OTHER ONE (01:45)
[2017-09-18] MEDS: Sod Chloride 0.9% Inj 1,000 ML IV.CONT SCH ×2 (02:00→13:22)
[2017-09-18] MEDS: Vancomycin Inj 1,100 MG in Sodium Chlor 0.9% Inj 250 ML IV.SIG SCH (02:29)
[2017-09-18 02:35] LABS: Activated Partial Thrombo Time 43.6 sec (24.3-30.1); INR 1.1 Ratio; Prothrombin Time 11.2 sec (9.8-11.6)
[2017-09-18] MEDS: levETIRAcetam 500 MG Tablet PO SCH ×2 (09:46→21:31)
[2017-09-18] MEDS: LORazepam 1 MG Tablet PO SCH ×2 (09:46→21:31)
[2017-09-18] MEDS: Senna/Docusate Sodium 8.6/50 MG Tablet PO SCH ×2 (09:46→21:31)
[2017-09-18] MEDS: FLUoxetine 20 MG Capsule PO SCH (09:46)
[2017-09-18] MEDS: Topiramate 25 MG Tablet PO SCH ×2 (09:49→23:38)
[2017-09-18] MEDS: Heparin Drip 25,000 UNIT/250 ML BAG IV.CONT PRN (10:12)
[2017-09-18] MEDS: Vancomycin Inj 1,250 MG in Sodium Chlor 0.9% Inj 250 ML IV.SIG SCH (14:07)
--- NOTE | 2017-09-18 21:44 | P.PN ---
Physical Exam Vital signs: Vital Signs 09/17/17 22:00 09/17/17 23:00 09/18/17 00:00 Temperature Pulse Rate 86 88 70 Respiratory Rate Blood Pressure Pulse Oximetry 09/18/17 00:21 09/18/17 01:00 09/18/17 02:00 Temperature 98.6 F Pulse Rate 70 70 76 Respiratory Rate 18 Blood Pressure 106/41 L Pulse Oximetry 95 09/18/17 03:00 09/18/17 04:00 09/18/17 05:00 Temperature 98.6 F Pulse Rate 79 74 65 Respiratory Rate 17 Blood Pressure 101/37 L Pulse Oximetry 95 09/18/17 06:00 09/18/17 07:00 09/18/17 08:00 Temperature 98.5 F Pulse Rate 61 66 66 Respiratory Rate 21 Blood Pressure 127/69 Pulse Oximetry 100 100 09/18/17 09:00 09/18/17 10:00 09/18/17 11:00 Temperature 98.2 F Pulse Rate 76 70 61 Respiratory Rate 19 Blood Pressure 114/63 Pulse Oximetry 100 09/18/17 12:00 09/18/17 13:00 09/18/17 14:00 Temperature Pulse Rate 62 72 62 Respiratory Rate Blood Pressure Pulse Oximetry 09/18/17 15:00 09/18/17 16:00 09/18/17 17:00 Temperature 98.6 F Pulse Rate 68 84 82 Respiratory Rate 16 Blood Pressure 125/62 Pulse Oximetry 96 09/18/17 18:00 09/18/17 20:00 Temperature 97.9 F Pulse Rate 82 69 Respiratory Rate 16 Blood Pressure 127/56 L Pulse Oximetry 97 Intake & Output 09/18/17 09/18/17 09/19/17 06:59 18:59 06:59 Intake Total 2192 / 2192 2432.5 / 2432.5 Output Total 1300 / 1300 Balance 892 / 892 2432.5 / 2432.5 Weight 74.2 kg Intake: IV 1722 / 1722 1712.5 / 1712.5 Heparin/D5W 25,000 U/250 mL 25, 250 / 250 000 unit In 250 ml @ 900 UNITS/ HR 9 mls/hr IV.CONT TITRATE PRN Rx#:[id number] NS Inj 1,000 ML @ 100 mls/hr IV 1000 / 1000 1000 / 1000 .CONT .Q10H [facility] Rx#:[id number] Maxipime Inj 2,000 MG In NS Inj 200 / 200 200 / 200 100 ML @ 200 mls/hr IV.SIG Q8H [facility] Rx#:[id number] Vancomycin Inj 1,250 MG In NS 522 / 522 262.5 / 262.5 Inj 250 ML @ 250 mls/hr IV.SIG Q12H [facility] Rx#:[id number] Oral 470 / 470 720 / 720 Output: Urine 1300 / 1300 Other: # Voids 3 Date of Last Bowel Movement 09/17/17 09/17/17 Narrative: Subjective: Follow-up fever of unknown origin, pacemaker in situ, rule out endocarditis, history of mitral valve and TV replacement 2/2 endocarditis Says was not able to sleep last night. Requesting sleeping aid discussed the patient no plan for benzos. Will add diphenhydramine as needed at night. She denies having any chest pain she is saturating well on room air. Feels tired. No tachycardia no nausea or vomiting. No fever or chills. Physical exam: GENERAL: Pleasant young female, tachycardia , a little bit anxious CARDIOVASCULAR: Tachycardic. Regular rate and rhythm without murmurs, gallops, or rubs. RESPIRATORY: Breath sounds equal bilaterally. No accessory muscle use. GASTROINTESTINAL: Abdomen soft, non-tender, nondistended. MUSCULOSKELETAL: No cyanosis, or edema. BACK: Nontender without obvious deformity. No CVA tenderness. Assessment and Plan Fever of unknown origin Most serious considerations would include endocarditis versus pacemaker site infection Covered broadly with cefepime and vancomycin Blood cultures drawn and pending Normal lactic acid level on admission Follow leukocyte trend Remain in ICU given the high risk of etiologies 09/16/17 s/p TAO by Dr De Luna cardio no vegetations, r/o endocarditis Pacemaker site pain Possible source of infection Add p.o. 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 Pharmacy to dose, Coumadin and continue bridging with heparin drip. Discussed with pharmacy. Would not discharge before that time per cardiology DVT prophylaxis Heparin Discussed with the patient, nurse Results - Labs CBC & Chem 7: 09/17/17 06:13 09/17/17 06:13 Laboratory Results - last 24 hr 09/18/17 09/18/17 02:16 02:16 PT 11.2 INR 1.1 APTT 43.6 H Vancomycin Trough 13.5 H Microbiology 09/14/17 21:45 Blood - Peripheral Aerobic Blood Culture - Preliminary No growth in 4 days 09/14/17 21:45 Blood - Peripheral Anaerobic Blood Culture - Preliminary No growth in 4 days 09/14/17 21:55 Blood - Peripheral Aerobic Blood Culture - Preliminary No growth in 4 days 09/14/17 21:55 Blood - Peripheral Anaerobic Blood Culture - Preliminary No growth in 4 days 09/14/17 21:40 Blood - Peripheral Aerobic Blood Culture - Preliminary No growth in 4 days 09/14/17 21:40 Blood - Peripheral Anaerobic Blood Culture - Preliminary No growth in 4 days 09/14/17 21:50 Blood - Peripheral Aerobic Blood Culture - Preliminary No growth in 4 days 09/14/17 21:50 Blood - Peripheral Anaerobic Blood Culture - Preliminary No growth in 4 days
[2017-09-19] MEDS: Vancomycin Inj 1,250 MG in Sodium Chlor 0.9% Inj 250 ML IV.SIG SCH ×2 (02:22→15:32)
[2017-09-19 07:45] LABS: INR 1.1 Ratio; Prothrombin Time 11.4 sec (9.8-11.6)
[2017-09-19 08:09] LABS: Glomerular Filtration Rate Greater Than 89 mL/min (>89)
--- NOTE | 2017-09-19 09:25 | P.PNIM ---
Subjective Interval history: f/u; fever in no acute distress. resting comfortably. afebrile. no new complaints. Physical Exam Vital signs: Vital Signs 09/18/17 10:00 09/18/17 11:00 09/18/17 12:00 Temperature 98.2 F Pulse Rate 70 61 62 Respiratory Rate 19 Blood Pressure 114/63 Pulse Oximetry 100 09/18/17 13:00 09/18/17 14:00 09/18/17 15:00 Temperature 98.6 F Pulse Rate 72 62 68 Respiratory Rate 16 Blood Pressure 125/62 Pulse Oximetry 96 09/18/17 16:00 09/18/17 17:00 09/18/17 18:00 Temperature Pulse Rate 84 82 82 Respiratory Rate Blood Pressure Pulse Oximetry 09/18/17 20:00 09/19/17 04:00 Temperature 97.9 F 97.5 F L Pulse Rate 69 60 Respiratory Rate 16 16 Blood Pressure 127/56 L 110/57 L Pulse Oximetry 97 97 Intake & Output 09/18/17 09/19/17 09/19/17 18:59 06:59 18:59 Intake Total 2432.5 / 2432.5 380 / 380 Balance 2432.5 / 2432.5 380 / 380 Weight 72.6 kg Intake: IV 1712.5 / 1712.5 Heparin/D5W 25,000 U/250 mL 25, 250 / 250 000 unit In 250 ml @ 900 UNITS/ HR 9 mls/hr IV.CONT TITRATE PRN Rx#:[id number] NS Inj 1,000 ML @ 100 mls/hr IV 1000 / 1000 .CONT .Q10H [facility] Rx#:[id number] Maxipime Inj 2,000 MG In NS Inj 200 / 200 100 ML @ 200 mls/hr IV.SIG Q8H [facility] Rx#:[id number] Vancomycin Inj 1,250 MG In NS 262.5 / 262.5 Inj 250 ML @ 250 mls/hr IV.SIG Q12H [facility] Rx#:[id number] Oral 720 / 720 380 / 380 Other: # Voids 3 1 Date of Last Bowel Movement 09/17/17 09/17/17 - Constitutional no acute distress - Routine Respiratory Exam Present: CTA bilaterally - Routine Cardiovascular Exam Present: RRR - Routine Abdominal Exam Present: soft - Routine Extremities Exam Comments: no pedal edema. Results - Labs CBC & Chem 7: 07/25/18 06:13 09/19/17 07:02 Laboratory Results - last 24 hr 09/19/17 09/19/17 07:02 07:02 PT 11.4 INR 1.1 Creatinine 0.75 Estimated GFR Greater than 89 Microbiology 09/14/17 21:45 Blood - Peripheral Aerobic Blood Culture - Preliminary No growth in 4 days 09/14/17 21:45 Blood - Peripheral Anaerobic Blood Culture - Preliminary No growth in 4 days 09/14/17 21:55 Blood - Peripheral Aerobic Blood Culture - Preliminary No growth in 4 days 09/14/17 21:55 Blood - Peripheral Anaerobic Blood Culture - Preliminary No growth in 4 days 09/14/17 21:40 Blood - Peripheral Aerobic Blood Culture - Preliminary No growth in 4 days 09/14/17 21:40 Blood - Peripheral Anaerobic Blood Culture - Preliminary No growth in 4 days 09/14/17 21:50 Blood - Peripheral Aerobic Blood Culture - Preliminary No growth in 4 days 09/14/17 21:50 Blood - Peripheral Anaerobic Blood Culture - Preliminary No growth in 4 days Assessment and Plan - Plan Fever of unknown origin Covered broadly with cefepime and vancomycin Blood cultures negative so far. s/p TAO by Dr Tavares cardio no vegetations. 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 Pharmacy to dose, Coumadin and continue bridging with heparin drip. Would not discharge before that time per cardiology DVT prophylaxis Heparin Discharge Planning: when INR is therapeutic- and cleared by ID.
[2017-09-19] MEDS: LORazepam 1 MG Tablet PO SCH ×2 (09:33→20:33)
[2017-09-19] MEDS: FLUoxetine 20 MG Capsule PO SCH (09:33)
[2017-09-19] MEDS: levETIRAcetam 500 MG Tablet PO SCH ×2 (09:33→20:33)
[2017-09-19] MEDS: Topiramate 25 MG Tablet PO SCH ×2 (09:33→20:33)
[2017-09-19] MEDS: Senna/Docusate Sodium 8.6/50 MG Tablet PO SCH ×2 (09:35→20:33)
[2017-09-19] MEDS: Heparin Drip 25,000 UNIT/250 ML BAG IV.CONT PRN (11:35)
--- NOTE | 2017-09-19 12:08 | P.PNID ---
Subjective Remarks: afebrile All clx are negative 10/01 TAO negative c/o some pain around pacer Antibiotics: vancomycin cefepime Allergies/Adverse Reactions: Allergies codeine Allergy (Severe, Verified 09/14/17 21:46) HIVES/VOMITING Fish Containing Products Allergy (Severe, Verified 09/14/17 21:46) THROAT SWOLLEN/HIVES gabapentin Allergy (Severe, Verified 09/14/17 21:46) Hives morphine Allergy (Severe, Verified 09/14/17 21:46) Hives naproxen Allergy (Severe, Verified 09/14/17 21:46) Hives piperacillin Allergy (Severe, Verified 09/14/17 21:46) Hives tazobactam Allergy (Severe, Verified 07/24/17 01:33) Hives adhesive tape Allergy (Verified 09/14/17 21:44) Rash, Localized shellfish derived Allergy (Verified 09/14/17 21:46) Difficulty Breathing Objective Vital Signs 09/18/17 13:00 09/18/17 14:00 09/18/17 15:00 Temperature 98.6 F Pulse Rate 72 62 68 Respiratory Rate 16 Blood Pressure 125/62 Pulse Oximetry 96 09/18/17 16:00 09/18/17 17:00 09/18/17 18:00 Temperature Pulse Rate 84 82 82 Respiratory Rate Blood Pressure Pulse Oximetry 09/18/17 20:00 09/19/17 04:00 09/19/17 08:00 Temperature 97.9 F 97.5 F L 98.3 F Pulse Rate 69 60 61 Respiratory Rate 16 16 16 Blood Pressure 127/56 L 110/57 L 110/57 L Pulse Oximetry 97 97 94 L Intake & Output 09/18/17 09/19/17 09/19/17 18:59 06:59 18:59 Intake Total 2432.5 / 2432.5 380 / 380 350 / 350 Balance 2432.5 / 2432.5 380 / 380 350 / 350 Weight 72.6 kg Intake: IV 1712.5 / 1712.5 350 / 350 Heparin/D5W 25,000 U/250 mL 25, 250 / 250 250 / 250 000 unit In 250 ml @ 900 UNITS/ HR 9 mls/hr IV.CONT TITRATE PRN Rx#:[id number] NS Inj 1,000 ML @ 100 mls/hr IV 1000 / 1000 .CONT .Q10H HENRI Rx#:[id number] Maxipime Inj 2,000 MG In NS Inj 200 / 200 100 / 100 100 ML @ 200 mls/hr IV.SIG Q8H HENRI Rx#:[id number] Vancomycin Inj 1,250 MG In NS 262.5 / 262.5 Inj 250 ML @ 250 mls/hr IV.SIG Q12H HENRI Rx#:[id number] Oral 720 / 720 380 / 380 Other: # Voids 3 1 Date of Last Bowel Movement 09/17/17 09/17/17 09/14/17 21:45 Blood - Peripheral Aerobic Blood Culture - Final No growth in 5 days 09/14/17 21:45 Blood - Peripheral Anaerobic Blood Culture - Final No growth in 5 days 09/14/17 21:55 Blood - Peripheral Aerobic Blood Culture - Final No growth in 5 days 09/14/17 21:55 Blood - Peripheral Anaerobic Blood Culture - Final No growth in 5 days 09/14/17 21:40 Blood - Peripheral Aerobic Blood Culture - Final No growth in 5 days 09/14/17 21:40 Blood - Peripheral Anaerobic Blood Culture - Final No growth in 5 days 09/14/17 21:50 Blood - Peripheral Aerobic Blood Culture - Final No growth in 5 days 09/14/17 21:50 Blood - Peripheral Anaerobic Blood Culture - Final No growth in 5 days Lab - Chemistry Results 09/19/17 07:02 Creatinine 0.75 Estimated GFR Greater than 89 Imaging: ITS Impressions Chest X-Ray 09/14/17 21:28 CONCLUSION: The lungs are clear. No evidence of pneumothorax. Soft Tissue Ultrasound 09/15/17 00:00 CONCLUSION: 1. Negative for abscess or fluid collection. Abdomen X-Ray 09/16/17 00:00 CONCLUSION: Nonspecific KUB. Physical Exam: GENERAL: NAD SKIN: Warm and dry. CARDIOVASCULAR: Regular rate and rhythm. Pacemaker in place with mild swelling around it, no fluctuance and tenderness to palpation no redness RESPIRATORY: No accessory muscle use. Clear to auscultation. Breath sounds equal bilaterally. GASTROINTESTINAL: Abdomen soft, non-tender, moderately distended ? ascites Hepatic and splenic margins not palpable. MUSCULOSKELETAL: Extremities without clubbing, cyanosis, or edema. No obvious deformities. NEUROLOGICAL: Awake and alert. No obvious cranial nerve deficits. Motor grossly within normal limits. Five out of 5 muscle strength in the arms and legs. Normal speech. PSYCHIATRIC: Appropriate mood and affect; insight and judgment normal. Assessment and Plan - Plan Recurretn SBE, including PVE sp Mitral and tricuspid valves replacements sp pacemaker, co pain in the area, but no fluid colection Fever resolved with empiric abx, all clx are negative TEnderness and swelling of pacemeaker pocket, r/o infeciton dc cefepime, vancomycin OK to dc home from ID perspective dw pt
[2017-09-19] MEDS: Sod Chloride 0.9% Inj 1,000 ML IV.CONT SCH (15:36)
[2017-09-20] MEDS ORDERED: Pharmacy Ordered Lab Info OTHER ONE (01:45)
[2017-09-20] MEDS: Sod Chloride 0.9% Inj 1,000 ML IV.CONT SCH ×4 (02:00→22:58)
[2017-09-20 02:25] LABS: Activated Partial Thrombo Time 41.2 sec (24.3-30.1); INR 1.2 Ratio
[2017-09-20] MEDS: Vancomycin Inj 1,250 MG in Sodium Chlor 0.9% Inj 250 ML IV.SIG SCH (04:16)
--- NOTE | 2017-09-20 08:41 | P.PNIM ---
Subjective Interval history: f/u; fever in no acute distress. has some pain to the site of pacemaker. otherwise no other complaints. Physical Exam Vital signs: Vital Signs 09/19/17 11:00 09/19/17 12:00 09/19/17 16:00 Temperature 97.7 F 98.4 F Pulse Rate 69 65 66 Respiratory Rate 18 18 Blood Pressure 117/62 122/75 Pulse Oximetry 95 18 L 09/19/17 20:00 09/20/17 00:00 09/20/17 04:00 Temperature 98.6 F 97.7 F 98.0 F Pulse Rate 97 H 70 73 Respiratory Rate 17 18 18 Blood Pressure 113/60 113/56 L 114/55 L Pulse Oximetry 94 L 100 95 Intake & Output 09/19/17 09/20/17 09/20/17 18:59 06:59 18:59 Intake Total 1455.0 / 1455.0 2059 Balance 1455.0 / 1455.0 2059 Weight 64.864 kg Intake: IV 975.0 / 975.0 1100 / 1100 Heparin/D5W 25,000 U/250 mL 25, 250 / 250 000 unit In 250 ml @ 900 UNITS/ HR 9 mls/hr IV.CONT TITRATE PRN Rx#:[id number] NS Inj 1,000 ML @ 100 mls/hr IV 1000 / 1000 .CONT .Q10H HENRI Rx#:[id number] Maxipime Inj 2,000 MG In NS Inj 200 / 200 100 / 100 100 ML @ 200 mls/hr IV.SIG Q8H HENRI Rx#:[id number] Vancomycin Inj 1,250 MG In NS 525.0 / 525.0 Inj 250 ML @ 250 mls/hr IV.SIG Q12H HENRI Rx#:[id number] Oral 480 / 480 960 / 960 Other: # Voids 7 10 Date of Last Bowel Movement 09/17/17 09/20/17 # Bowel Movements 2 1 - Constitutional no acute distress - Routine Respiratory Exam Present: CTA bilaterally - Routine Cardiovascular Exam Present: RRR - Routine Abdominal Exam Present: soft - Routine Extremities Exam Comments: no pedal edema. - Routine Neurological Exam mildly lethargic but easily arousable. Results - Labs CBC & Chem 7: 09/17/17 06:13 07/27/18 07:02 Laboratory Results - last 24 hr 09/19/17 09/20/17 09/20/17 16:20 01:32 02:00 PT 12.0 H INR 1.2 APTT 33.4 H D 41.2 H D Vancomycin Trough 20.1 H Microbiology 09/14/17 21:45 Blood - Peripheral Aerobic Blood Culture - Final No growth in 5 days 09/14/17 21:45 Blood - Peripheral Anaerobic Blood Culture - Final No growth in 5 days 09/14/17 21:55 Blood - Peripheral Aerobic Blood Culture - Final No growth in 5 days 09/14/17 21:55 Blood - Peripheral Anaerobic Blood Culture - Final No growth in 5 days 09/14/17 21:40 Blood - Peripheral Aerobic Blood Culture - Final No growth in 5 days 09/14/17 21:40 Blood - Peripheral Anaerobic Blood Culture - Final No growth in 5 days 09/14/17 21:50 Blood - Peripheral Aerobic Blood Culture - Final No growth in 5 days 09/14/17 21:50 Blood - Peripheral Anaerobic Blood Culture - Final No growth in 5 days Assessment and Plan - Plan Fever of unknown origin Covered broadly with cefepime and vancomycin now fever has resolved- Blood cultures negative so far. s/p TAO by Dr Tavares cardio no vegetations. ID f/u appreciated; all antibiotics discontinued and was cleared for discharge per ID. Pacemaker site pain Soft tissue ultrasound of pacemaker site with no abscess. continue with pain control. 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 Subtherapeutic INR Heparin drip until INR greater than 2.5 for 24 hours. Pharmacy to dose, Coumadin and continue bridging with heparin drip. Would not discharge before that time per cardiology DVT prophylaxis Heparin/Coumadin. Discharge Planning: when INR is therapeutic-
[2017-09-20] MEDS: levETIRAcetam 500 MG Tablet PO SCH ×2 (09:09→20:41)
[2017-09-20] MEDS: Topiramate 25 MG Tablet PO SCH ×2 (09:09→20:41)
[2017-09-20] MEDS: LORazepam 1 MG Tablet PO SCH ×2 (09:09→20:41)
[2017-09-20] MEDS: Senna/Docusate Sodium 8.6/50 MG Tablet PO SCH ×2 (09:10→20:41)
[2017-09-20] MEDS: FLUoxetine 20 MG Capsule PO SCH (09:10)
[2017-09-20] MEDS: Heparin Drip 25,000 UNIT/250 ML BAG IV.CONT PRN (10:22)
[2017-09-20] MEDS: Heparin 10,000 UNITS/10 ML Vial (for IV use) IV.PUSH PRN (22:53)
[2017-09-21 05:58] LABS: Activated Partial Thrombo Time 43.6 sec (24.3-30.1); INR 1.6 Ratio; Prothrombin Time 16.6 sec (9.8-11.6)
[2017-09-21] MEDS: Heparin Drip 25,000 UNIT/250 ML BAG IV.CONT PRN (07:50)
[2017-09-21] MEDS: Sod Chloride 0.9% Inj 1,000 ML IV.CONT SCH ×2 (07:53→17:03)
[2017-09-21] MEDS: levETIRAcetam 500 MG Tablet PO SCH ×2 (08:00→22:28)
[2017-09-21] MEDS: FLUoxetine 20 MG Capsule PO SCH (08:01)
[2017-09-21] MEDS: LORazepam 1 MG Tablet PO SCH ×2 (08:01→22:28)
[2017-09-21] MEDS: Topiramate 25 MG Tablet PO SCH ×2 (08:01→22:28)
[2017-09-21] MEDS: Senna/Docusate Sodium 8.6/50 MG Tablet PO SCH ×2 (08:03→22:29)
--- NOTE | 2017-09-21 08:51 | P.PNIM ---
Subjective Interval history: f/u; fever/ coumadin therapy in no acute disress. although looks comfortable, complaining of mild generalized abdominal pain. no fever. Physical Exam Vital signs: Vital Signs 09/20/17 09:00 09/20/17 11:00 09/20/17 12:00 Temperature 97.9 F Pulse Rate 71 70 70 Respiratory Rate 18 Blood Pressure 110/57 L Pulse Oximetry 94 L 09/20/17 15:00 09/20/17 16:00 09/20/17 19:49 Temperature 97.8 F Pulse Rate 70 70 64 Respiratory Rate 18 18 Blood Pressure 114/60 Pulse Oximetry 94 L 09/20/17 20:00 09/20/17 23:48 09/21/17 00:00 Temperature 98.0 F 98.4 F Pulse Rate 70 73 70 Respiratory Rate 18 18 Blood Pressure 139/76 136/63 Pulse Oximetry 100 99 09/21/17 03:43 09/21/17 04:00 Temperature 98.4 F Pulse Rate 64 65 Respiratory Rate 18 Blood Pressure 138/63 Pulse Oximetry 95 Intake & Output 09/20/17 09/21/17 09/21/17 18:59 06:59 18:59 Intake Total 1730 / 1730 1720 / 1720 1250 / 1250 Balance 1730 / 1730 1720 / 1720 1250 / 1250 Weight 65.3 kg Intake: IV 1250 / 1250 1000 / 1000 1250 / 1250 Heparin/D5W 25,000 U/250 mL 25, 250 / 250 250 / 250 000 unit In 250 ml @ 900 UNITS/ HR 9 mls/hr IV.CONT TITRATE PRN Rx#:[id number] NS Inj 1,000 ML @ 100 mls/hr IV 1000 / 1000 1000 / 1000 1000 / 1000 .CONT .Q10H HENRI Rx#:[id number] Oral 480 / 480 720 / 720 Other: # Voids 4 6 Date of Last Bowel Movement 09/20/17 # Bowel Movements 1 1 - Constitutional no acute distress - Routine Respiratory Exam Present: CTA bilaterally - Routine Cardiovascular Exam Present: RRR - Routine Abdominal Exam Present: soft - Routine Extremities Exam Comments: no pedal edema. - Routine Neurological Exam Present: alert, oriented X3 Results - Labs CBC & Chem 7: 09/17/17 06:13 09/21/17 05:01 Laboratory Results - last 24 hr 09/20/17 09/20/17 09/20/17 09:03 15:00 21:10 PT INR APTT 32.4 H D 25.3 D 34.0 H D Creatinine Estimated GFR 09/21/17 09/21/17 05:01 05:01 PT 16.6 H INR 1.6 APTT 43.6 H D Creatinine 0.85 Estimated GFR 80 L Assessment and Plan - Plan Fever of unknown origin Covered broadly with cefepime and vancomycin now fever has resolved- Blood cultures negative so far. s/p TAO by Dr Tavares cardio no vegetations. ID f/u appreciated; all antibiotics discontinued and was cleared for discharge per ID. Pacemaker site pain Soft tissue ultrasound of pacemaker site with no abscess. continue with pain control. 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 Subtherapeutic INR Heparin drip until INR greater than 2.5 for 24 hours. Pharmacy to dose, Coumadin and continue bridging with heparin drip. Would not discharge before that time per cardiology DVT prophylaxis Heparin/Coumadin. Discharge Planning: when INR is therapeutic > 2.5 for 24 hrs.
--- NOTE | 2017-09-21 11:15 | P.DIET ---
Nutritional Evaluation Nutrition screening: Weight Loss > 10 lbs Screening comments: Inappropriate screen. Pt reports both no weight loss and wt loss. Pt's weight last admission was 68.2kg on 08/09 which actually shows a wt gain. Pt has been eating 50-100% of her meals for the past three days. Please consult RD if needed.
[2017-09-21] MEDS: oxyCODONE/Acetaminophen 10/325 Tablet PO PRN (18:41)
[2017-09-22] MEDS: oxyCODONE/Acetaminophen 10/325 Tablet PO PRN ×4 (00:06→18:50)
[2017-09-22] MEDS: Heparin Drip 25,000 UNIT/250 ML BAG IV.CONT PRN (00:08)
[2017-09-22] MEDS: Sod Chloride 0.9% Inj 1,000 ML IV.CONT SCH (03:25)
[2017-09-22 10:00] LABS: Activated Partial Thrombo Time 54.1 sec (24.3-30.1); INR 1.7 Ratio; Prothrombin Time 17.3 sec (9.8-11.6)
[2017-09-22] MEDS: levETIRAcetam 500 MG Tablet PO SCH ×2 (10:20→21:46)
[2017-09-22] MEDS: Senna/Docusate Sodium 8.6/50 MG Tablet PO SCH ×2 (10:21→22:14)
[2017-09-22] MEDS: FLUoxetine 20 MG Capsule PO SCH (10:21)
[2017-09-22] MEDS: LORazepam 1 MG Tablet PO SCH ×2 (10:21→21:46)
[2017-09-22] MEDS: Topiramate 25 MG Tablet PO SCH ×2 (10:21→21:46)
--- NOTE | 2017-09-22 11:45 | P.PNCA ---
Subjective Interval history: No events over the weekend No complaints Physical Exam Vital signs: Vital Signs 09/21/17 12:00 09/21/17 15:00 09/21/17 16:00 Temperature 98.3 F 98 F Pulse Rate 64 73 75 Respiratory Rate 18 18 Blood Pressure 123/61 123/70 Pulse Oximetry 94 L 94 L 09/21/17 20:00 09/22/17 00:00 09/22/17 03:00 Temperature 98.4 F 88.1 F L Pulse Rate 93 H 75 Respiratory Rate 18 18 18 Blood Pressure 153/69 H 122/59 L Pulse Oximetry 99 98 09/22/17 04:00 09/22/17 08:00 Temperature 98.0 F 98.0 F Pulse Rate 73 67 Respiratory Rate 18 17 Blood Pressure 127/59 L 136/64 Pulse Oximetry 97 95 Intake & Output 09/21/17 09/22/17 09/22/17 18:59 06:59 18:59 Intake Total 2630 / 2630 2210 / 2210 Balance 2630 / 2630 2210 / 2210 Weight 66 kg Intake: IV 2150 / 2150 1250 / 1250 Heparin/D5W 25,000 U/250 mL 25, 250 / 250 250 / 250 000 unit In 250 ml @ 900 UNITS/ HR 9 mls/hr IV.CONT TITRATE PRN Rx#:[id number] NS Inj 1,000 ML @ 100 mls/hr IV 1900 / 1900 1000 / 1000 .CONT .Q10H HENRI Rx#:[id number] Oral 480 / 480 960 / 960 Other: # Voids 3 # Urine Diapers 4 Date of Last Bowel Movement 09/20/17 # Bowel Movements 0 Narrative: GENERAL: NAD, AAOx3 SKIN: Warm and dry. HEAD: Atraumatic. Normocephalic. EYES: Pupils equal and round. No scleral icterus. No injection or drainage. ENT: No nasal bleeding or discharge. Mucous membranes pink and moist. NECK: Trachea midline. No JVD. CARDIOVASCULAR: Regular rate and rhythm, mechanical click noted. PPM over left chest wall. RESPIRATORY: No accessory muscle use. Clear to auscultation. Breath sounds equal bilaterally. GASTROINTESTINAL: Abdomen soft, non-tender, nondistended. Hepatic and splenic margins not palpable. MUSCULOSKELETAL: Extremities without clubbing, cyanosis, or edema. No obvious deformities. NEUROLOGICAL: Awake and alert. No obvious cranial nerve deficits. Motor grossly within normal limits. Five out of 5 muscle strength in the arms and legs. Normal speech. PSYCHIATRIC: Appropriate mood and affect; insight and judgment normal. 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
--- NOTE | 2017-09-22 14:07 | P.PNIM ---
Subjective Interval history: Pt seen and examined for f/u of fever and history of prosthetic mitral and tricuspid valves. The plan is for the patient to stay until her INR is at least 2.5 for 24 hours. Upon evaluation she is sleeping. She wakes briefly for the encounter and denies any complaints. Denies CP, SOB, abdominal pain, N/V. Physical Exam Vital signs: Vital Signs 09/21/17 15:00 09/21/17 16:00 09/21/17 20:00 Temperature 98 F 98.4 F Pulse Rate 73 75 93 H Respiratory Rate 18 18 Blood Pressure 123/70 153/69 H Pulse Oximetry 94 L 99 09/22/17 00:00 09/22/17 03:00 09/22/17 04:00 Temperature 88.1 F L 98.0 F Pulse Rate 75 73 Respiratory Rate 18 18 18 Blood Pressure 122/59 L 127/59 L Pulse Oximetry 98 97 09/22/17 08:00 09/22/17 12:00 Temperature 98.0 F 97.9 F Pulse Rate 67 63 Respiratory Rate 17 17 Blood Pressure 136/64 142/66 H Pulse Oximetry 95 97 Intake & Output 09/21/17 09/22/17 09/22/17 18:59 06:59 18:59 Intake Total 2630 / 2630 2210 / 2210 800 / 800 Balance 2630 / 2630 2210 / 2210 800 / 800 Weight 66 kg Intake: IV 2150 / 2150 1250 / 1250 800 / 800 Heparin/D5W 25,000 U/250 mL 25, 250 / 250 250 / 250 000 unit In 250 ml @ 900 UNITS/ HR 9 mls/hr IV.CONT TITRATE PRN Rx#:[id number] NS Inj 1,000 ML @ 100 mls/hr IV 1900 / 1900 1000 / 1000 800 / 800 .CONT .Q10H HENRI Rx#:[id number] Oral 480 / 480 960 / 960 Other: # Voids 3 # Urine Diapers 4 Date of Last Bowel Movement 09/20/17 09/21/17 # Bowel Movements 0 Narrative: GENERAL: WN, WD female resting in bed in [facility]. SKIN: Warm and dry. Tattoos over extremities. HEART: RRR no m/r/g. LUNGS: CTAB without wheezes or crackles. ABDOMEN: +BS, soft, NT, ND. EXTREMITIES: No LE edema. NEURO: Awake and alert. PSYCH: Appropriate mood and affect. Results - Labs CBC & Chem 7: 09/17/17 06:13 09/21/17 05:01 Laboratory Results - last 24 hr 09/22/17 08:52 PT 17.3 H INR 1.7 APTT 54.1 H Assessment and Plan - Assessment (1) Fever of unknown origin Code(s): R50.9 - Fever, unspecified Status: Acute (2) H/O mitral valve replacement with mechanical valve Code(s): Z95.2 - Presence of prosthetic heart valve Status: Acute (3) History of tricuspid valve replacement with mechanical valve Code(s): Z95.2 - Presence of prosthetic heart valve Status: Acute - Plan 26 YOWF with history of IVDU and IE resulting in mitral and prosthetic valve replacements. 1. Fever of unknown origin - Covered broadly with cefepime and vancomycin - Now fever has resolved - Blood cultures negative so far. - s/p TAO by Dr Tavares cardio no vegetations. - ID f/u appreciated; all antibiotics discontinued and was cleared for discharge per ID 2. Pacemaker site pain - Soft tissue ultrasound of pacemaker site with no abscess - Continue with pain control 3. 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 Pharmacy to dose - INR 1.7 today DVT prophylaxis: Heparin/Coumadin
[2017-09-23] MEDS: Heparin Drip 25,000 UNIT/250 ML BAG IV.CONT PRN (00:40)
[2017-09-23] MEDS: oxyCODONE/Acetaminophen 10/325 Tablet PO PRN ×5 (00:43→22:46)
[2017-09-23 08:53] LABS: INR 1.8 Ratio; Prothrombin Time 18.7 sec (9.8-11.6)
[2017-09-23] MEDS: Senna/Docusate Sodium 8.6/50 MG Tablet PO SCH ×2 (09:18→21:10)
[2017-09-23] MEDS: levETIRAcetam 500 MG Tablet PO SCH ×2 (09:18→21:10)
[2017-09-23] MEDS: LORazepam 1 MG Tablet PO SCH ×2 (09:19→21:10)
[2017-09-23] MEDS: Topiramate 25 MG Tablet PO SCH ×2 (09:19→21:10)
[2017-09-23] MEDS: FLUoxetine 20 MG Capsule PO SCH (09:19)
--- NOTE | 2017-09-23 17:13 | P.PN ---
Subjective Interval history: Patient complains of nosebleeds. This happened on her last hospitalization. She denies any recent fevers. She complains of continued pain around her pacemaker site. Physical Exam Vital signs: Vital Signs 09/22/17 20:00 09/22/17 21:46 09/23/17 00:00 Temperature 98.4 F 98.3 F Pulse Rate 80 65 Respiratory Rate 18 16 18 Blood Pressure 146/70 H 111/56 L Pulse Oximetry 99 94 L 09/23/17 04:00 09/23/17 08:00 09/23/17 12:00 Temperature 98.6 F 98.0 F 98.0 F Pulse Rate 64 66 62 Respiratory Rate 16 20 20 Blood Pressure 113/56 L 142/77 H 136/61 Pulse Oximetry 94 L 97 100 Intake & Output 09/22/17 09/23/17 09/23/17 18:59 06:59 18:59 Intake Total 1760 / 1760 730 / 730 Balance 1760 / 1760 730 / 730 Weight 64.5 kg Intake: IV 800 / 800 250 / 250 Heparin/D5W 25,000 U/250 mL 25, 250 / 250 000 unit In 250 ml @ 900 UNITS/ HR 9 mls/hr IV.CONT TITRATE PRN Rx#:[id number] NS Inj 1,000 ML @ 100 mls/hr IV 800 / 800 .CONT .Q10H HENRI Rx#:[id number] Oral 960 / 960 480 / 480 Other: # Voids 5 2 Date of Last Bowel Movement 09/22/17 09/22/17 # Bowel Movements 1 Narrative: GENERAL: AAOx3, no acute distress, sleepy SKIN: Warm and dry. No rashes. Palpable swelling is mild around pacemaker, no erythema, no induration HEAD: Atruamtic, normocephalic. EYES: No scleral icterus. No injection or drainage. ENT: Moist mucous membranes, patent nares, no erythema of oropharynx. NECK: Supple, trachea midline. No JVD or lymphadenopathy. Normal thyroid. CARDIOVASCULAR: Regular rate and rhythm, midsystolic click. 3/6 murmur, no gallops, or rubs. RESPIRATORY: Breath sounds clear equal bilaterally. No crackles or wheezes. No accessory muscle use. GASTROINTESTINAL: Abdomen soft, non-tender, nondistended, normal active bowel sounds MUSCULOSKELETAL: No cyanosis, or edema. NEURO: CN II-XII grossly intact, no focal deficits, no slurring of speech Results - Labs CBC & Chem 7: 09/17/17 06:13 09/23/17 08:25 Laboratory Results - last 24 hr 09/23/17 09/23/17 09/23/17 00:06 08:25 08:25 PT 18.7 H INR 1.8 APTT 48.6 H 49.0 H Creatinine 0.84 Estimated GFR 81 L Assessment and Plan - Assessment (1) Fever of unknown origin Code(s): R50.9 - Fever, unspecified Status: Acute (2) H/O mitral valve replacement with mechanical valve Code(s): Z95.2 - Presence of prosthetic heart valve Status: Acute (3) History of tricuspid valve replacement with mechanical valve Code(s): Z95.2 - Presence of prosthetic heart valve Status: Acute - Plan 26-year-old female with history of IV drug use admitted for recurrent fever of unknown origin Fever of unknown origin Most serious considerations would include endocarditis versus pacemaker site infection Covered broadly with cefepime and vancomycin Blood cultures so far negative TAO showed no vegetations Leukocytosis normalized Infectious disease discontinued all antibiotics, patient cleared for discharge Pacemaker site pain Ultrasound of pacemaker site showed no abscess DVT prophylaxis Heparin bridging to Coumadin Discharge planning May discharge home when therapeutic on Coumadin, when INR greater than 2.5
[2017-09-24] MEDS: oxyCODONE/Acetaminophen 10/325 Tablet PO PRN ×3 (06:00→20:07)
[2017-09-24 08:31] LABS: Activated Partial Thrombo Time 37.5 sec (24.3-30.1); INR 2.3 Ratio; Prothrombin Time 23.4 sec (9.8-11.6)
[2017-09-24] MEDS: Topiramate 25 MG Tablet PO SCH ×2 (09:09→20:14)
[2017-09-24] MEDS: levETIRAcetam 500 MG Tablet PO SCH ×2 (09:10→20:08)
[2017-09-24] MEDS: LORazepam 1 MG Tablet PO SCH ×2 (09:10→20:08)
[2017-09-24] MEDS: FLUoxetine 20 MG Capsule PO SCH (09:10)
[2017-09-24] MEDS: Heparin - SQ 10,000 UNITS/ML Vial SQ SCH ×2 (09:10→20:06)
[2017-09-24] MEDS: Senna/Docusate Sodium 8.6/50 MG Tablet PO SCH ×2 (09:11→20:07)
--- NOTE | 2017-09-24 15:33 | P.PN ---
Subjective Interval history: We discussed pattern of recurrent hospitalizations today. Hospitalizations always begin with onset of fever and progressed to sepsis-like syndrome. Hospital workup on this admission and the last have both been negative, including negative TAO and negative blood cultures. In this case we are treating something that is not visible, we discussed the potential value to being on a prophylactic suppressive antibiotic dose as a precaution. Her main complaint remains pain around her pacemaker site. She states that the Percocet is not enough to cover that pain. Physical Exam Vital signs: Vital Signs 09/23/17 16:00 09/23/17 20:00 09/24/17 00:00 Temperature 97.8 F 98.0 F 98.0 F Pulse Rate 68 66 64 Respiratory Rate 20 18 16 Blood Pressure 127/63 157/71 H 142/62 H Pulse Oximetry 98 97 97 09/24/17 04:00 09/24/17 08:00 09/24/17 12:00 Temperature 98.2 F 98.7 F 98.3 F Pulse Rate 74 79 63 Respiratory Rate 18 20 20 Blood Pressure 150/66 H 172/86 H 133/66 Pulse Oximetry 97 99 99 Intake & Output 09/23/17 09/24/17 09/24/17 18:59 06:59 18:59 Intake Total 240 / 240 1200 / 1200 Output Total 1200 / 1200 Balance 240 / 240 0 / 0 Weight 66 kg Intake: Oral 240 / 240 1200 / 1200 Output: Urine 1200 / 1200 Other: # Voids 5 Date of Last Bowel Movement 09/22/17 09/22/17 # Bowel Movements 1 2 Narrative: GENERAL: AAOx3, no acute distress, sleepy SKIN: Warm and dry. No rashes. Palpable swelling is mild around pacemaker, no erythema, no induration HEAD: Atruamtic, normocephalic. EYES: No scleral icterus. No injection or drainage. ENT: Moist mucous membranes, patent nares, no erythema of oropharynx. NECK: Supple, trachea midline. No JVD or lymphadenopathy. Normal thyroid. CARDIOVASCULAR: Regular rate and rhythm, midsystolic click. 3/6 murmur, no gallops, or rubs. RESPIRATORY: Breath sounds clear equal bilaterally. No crackles or wheezes. No accessory muscle use. GASTROINTESTINAL: Abdomen soft, non-tender, nondistended, normal active bowel sounds MUSCULOSKELETAL: No cyanosis, or edema. NEURO: CN II-XII grossly intact, no focal deficits, no slurring of speech Results - Labs CBC & Chem 7: 09/17/17 06:13 09/23/17 08:25 Laboratory Results - last 24 hr 09/24/17 07:20 PT 23.4 H INR 2.3 APTT 37.5 H D Assessment and Plan - Assessment (1) Fever of unknown origin Code(s): R50.9 - Fever, unspecified Status: Acute (2) H/O mitral valve replacement with mechanical valve Code(s): Z95.2 - Presence of prosthetic heart valve Status: Acute (3) History of tricuspid valve replacement with mechanical valve Code(s): Z95.2 - Presence of prosthetic heart valve Status: Acute - Plan 26-year-old female with history of IV drug use admitted for recurrent fever of unknown origin Fever of unknown origin Most serious considerations would include endocarditis versus pacemaker site infection Covered broadly with cefepime and vancomycin Blood cultures so far negative TAO showed no vegetations Leukocytosis normalized Infectious disease discontinued all antibiotics, patient cleared for discharge Consider sinusitis, tooth abscess, other, we discussed covering this with doxycycline 100 mg daily as suppressive dose Pacemaker site pain Ultrasound of pacemaker site showed no abscess This pain is patient's main complaint, not covered well with Percocet Will add Dilaudid for breakthrough pain DVT prophylaxis Heparin bridging to Coumadin, INR 2.3 today Discharge planning May discharge home when therapeutic on Coumadin, when INR greater than 2.5
[2017-09-25] MEDS: oxyCODONE/Acetaminophen 10/325 Tablet PO PRN ×3 (02:16→18:09)
[2017-09-25 07:45] LABS: Hematocrit 29.6 % (35.0-46.0); Hemoglobin 9.5 gm/dL (11.6-15.3); Mean Corpuscular HGB Conc 32.2 % (32.0-36.0); Mean Corpuscular Hemoglobin 28.4 pg (27.0-34.0); Mean Corpuscular Volume 88.2 fL (80.0-100.0); Mean Platelet Volume 8.1 fL (7.0-11.0); Platelet Count 453 th/mm3 (150-450); Red Blood Count 3.36 mil/mm3 (4.00-5.30); Red Cell Distribution Width 16.5 % (11.6-17.2); White Blood Count 9.5 th/mm3 (4.0-11.0)
[2017-09-25 08:02] LABS: Activated Partial Thrombo Time 39.1 sec (24.3-30.1); INR 2.3 Ratio; Prothrombin Time 23.2 sec (9.8-11.6)
[2017-09-25 08:31] LABS: Calcium 8.8 mg/dL (8.5-10.1); Potassium 4.2 meq/L (3.5-5.1)
[2017-09-25] MEDS: LORazepam 1 MG Tablet PO SCH ×2 (09:44→20:37)
[2017-09-25] MEDS: Heparin - SQ 10,000 UNITS/ML Vial SQ SCH ×2 (09:45→20:36)
[2017-09-25] MEDS: Senna/Docusate Sodium 8.6/50 MG Tablet PO SCH ×2 (09:45→20:37)
[2017-09-25] MEDS: levETIRAcetam 500 MG Tablet PO SCH ×2 (09:45→20:37)
[2017-09-25] MEDS: FLUoxetine 20 MG Capsule PO SCH (09:48)
[2017-09-25] MEDS: Topiramate 25 MG Tablet PO SCH ×2 (11:29→20:38)
[2017-09-25 12:19] LABS: Amphetamine Urine With Conf Neg (Neg); Benzodiazepine Urine With Conf Neg (Neg)
[2017-09-25 16:45] LABS: Calcium 8.7 mg/dL (8.5-10.1); Carbon Dioxide 25.7 meq/L (21.0-32.0); Potassium 3.9 meq/L (3.5-5.1)
[2017-09-25] MEDS: Acetaminophen 325 MG Tablet PO PRN (16:53)
--- NOTE | 2017-09-25 17:24 | P.PN ---
Subjective Interval history: Patient was found on the floor this morning, slow to be responsive, she awoke confused, crying, complaining of chest wall discomfort around the site of her pacemaker. She remains emotionally distraught for a couple hours. There is a report that her boyfriend visited the room overnight and that they were in the bathroom together doing unknown things. Physical Exam Vital signs: Vital Signs 09/24/17 20:00 09/25/17 00:00 09/25/17 04:00 Temperature 99 F 98.2 F Pulse Rate 78 79 79 Respiratory Rate 18 18 Blood Pressure 159/70 H 130/62 Pulse Oximetry 97 96 Intake & Output 09/24/17 09/25/17 09/25/17 18:59 06:59 18:59 Intake Total 600 / 600 720 / 720 Balance 600 / 600 720 / 720 Weight 67.8 kg Intake: Oral 600 / 600 720 / 720 Other: # Voids 5 9 Date of Last Bowel Movement 09/22/17 09/22/17 # Bowel Movements 1 0 Narrative: GENERAL: AAOx3, distressed following fall, atraumatic SKIN: Warm and dry. No rashes. Palpable swelling is mild around pacemaker, no erythema, no induration HEAD: Atruamtic, normocephalic. EYES: No scleral icterus. No injection or drainage. ENT: Moist mucous membranes, patent nares, no erythema of oropharynx. NECK: Supple, trachea midline. No JVD or lymphadenopathy. Normal thyroid. CARDIOVASCULAR: Regular rate and rhythm, midsystolic click. 3/6 murmur, no gallops, or rubs. RESPIRATORY: Breath sounds clear equal bilaterally. No crackles or wheezes. No accessory muscle use. GASTROINTESTINAL: Abdomen soft, non-tender, nondistended, normal active bowel sounds MUSCULOSKELETAL: No cyanosis, or edema. NEURO: CN II-XII grossly intact, no focal deficits, no slurring of speech Results - Labs CBC & Chem 7: 09/25/17 06:49 09/25/17 16:00 Laboratory Results - last 24 hr 09/25/17 09/25/17 09/25/17 06:49 06:49 06:49 WBC 9.5 RBC 3.36 L Hgb 9.5 L Hct 29.6 L MCV 88.2 MCH 28.4 MCHC 32.2 RDW 16.5 Plt Count 453 H D MPV 8.1 PT 23.2 H INR 2.3 APTT 39.1 H Sodium 138 Potassium 4.2 Chloride 106 Carbon Dioxide 22.0 Anion Gap 10 BUN 8 Creatinine 0.82 Estimated GFR 84 L POC Glucose Random Glucose 88 Calcium 8.8 Ammonia Urine Opiates Screen Ur Barbiturates Screen Ur Amphetamine Screen U Benzodiazepines Scrn Urine Cocaine Screen U Cannabinoids Screen 09/25/17 09/25/17 09/25/17 09:27 11:30 16:00 WBC RBC Hgb Hct MCV MCH MCHC RDW Plt Count MPV PT INR APTT Sodium Potassium Chloride Carbon Dioxide Anion Gap BUN Creatinine Estimated GFR POC Glucose 113 H Random Glucose Calcium Ammonia 57 H Urine Opiates Screen Pos H Ur Barbiturates Screen Neg Ur Amphetamine Screen Neg U Benzodiazepines Scrn Neg Urine Cocaine Screen Neg U Cannabinoids Screen Neg 09/25/17 16:00 WBC RBC Hgb Hct MCV MCH MCHC RDW Plt Count MPV PT INR APTT Sodium 138 Potassium 3.9 Chloride 106 Carbon Dioxide 25.7 Anion Gap 6 BUN 8 Creatinine 0.87 Estimated GFR 78 L POC Glucose Random Glucose 88 Calcium 8.7 Ammonia Urine Opiates Screen Ur Barbiturates Screen Ur Amphetamine Screen U Benzodiazepines Scrn Urine Cocaine Screen U Cannabinoids Screen Assessment and Plan - Assessment (1) Fever of unknown origin Code(s): R50.9 - Fever, unspecified Status: Acute (2) H/O mitral valve replacement with mechanical valve Code(s): Z95.2 - Presence of prosthetic heart valve Status: Acute (3) History of tricuspid valve replacement with mechanical valve Code(s): Z95.2 - Presence of prosthetic heart valve Status: Acute - Plan 26-year-old female with history of IV drug use admitted for recurrent fever of unknown origin Fever of unknown origin Most serious considerations would include endocarditis versus pacemaker site infection Covered broadly with cefepime and vancomycin Blood cultures so far negative TAO showed no vegetations Leukocytosis normalized Infectious disease discontinued all antibiotics, patient cleared for discharge Consider sinusitis, tooth abscess, other, we discussed covering this with doxycycline 100 mg daily as suppressive dose Syncope versus seizure Patient found on floor, confused when she was awakened, ambulating and speaking normally 20 minutes prior Mother saw her in her distraught state and reported that she is like this when her ammonia level is elevated Ammonia level was checked and is elevated Start lactulose twice daily and reevaluate tomorrow Seizure precautions Pacemaker site pain Ultrasound of pacemaker site showed no abscess This pain is patient's main complaint, not covered well with Percocet Pacemaker was interrogated today, no events surrounding fallout episode this morning DVT prophylaxis Heparin bridging to Coumadin, INR remains at 2.3 Discharge planning May discharge home when therapeutic on Coumadin, when INR greater than 2.5
[2017-09-26 07:36] LABS: Hematocrit 31.5 % (35.0-46.0); Mean Corpuscular HGB Conc 31.8 % (32.0-36.0); Mean Corpuscular Hemoglobin 27.8 pg (27.0-34.0); Mean Corpuscular Volume 87.2 fL (80.0-100.0); Mean Platelet Volume 8.2 fL (7.0-11.0); Platelet Count 475 th/mm3 (150-450); Red Blood Count 3.61 mil/mm3 (4.00-5.30); Red Cell Distribution Width 16.6 % (11.6-17.2); White Blood Count 7.2 th/mm3 (4.0-11.0)
[2017-09-26 07:47] LABS: INR 2.3 Ratio; Prothrombin Time 23.3 sec (9.8-11.6)
[2017-09-26 07:58] LABS: Calcium 8.7 mg/dL (8.5-10.1); Carbon Dioxide 23.7 meq/L (21.0-32.0); Potassium 3.9 meq/L (3.5-5.1)
[2017-09-26] MEDS: Topiramate 25 MG Tablet PO SCH ×2 (09:39→21:29)
[2017-09-26] MEDS: LORazepam 1 MG Tablet PO SCH ×2 (09:39→21:29)
[2017-09-26] MEDS: levETIRAcetam 500 MG Tablet PO SCH ×2 (09:39→21:27)
[2017-09-26] MEDS: FLUoxetine 20 MG Capsule PO SCH (09:40)
[2017-09-26] MEDS: Senna/Docusate Sodium 8.6/50 MG Tablet PO SCH ×2 (09:40→21:28)
[2017-09-26] MEDS: Heparin - SQ 10,000 UNITS/ML Vial SQ SCH ×2 (09:40→21:29)
[2017-09-26] MEDS: oxyCODONE/Acetaminophen 10/325 Tablet PO PRN ×2 (10:12→18:11)
--- NOTE | 2017-09-26 15:32 | P.PN ---
Subjective Interval history: 26-year-old female, more mentally clear today, she has no complaints of pain today. Physical Exam Vital signs: Vital Signs 09/25/17 16:00 09/25/17 17:00 09/25/17 20:00 Temperature 98.1 F 97.7 F Pulse Rate 62 65 69 Respiratory Rate 20 18 Blood Pressure 158/72 H 151/73 H Pulse Oximetry 100 96 09/26/17 00:00 09/26/17 04:00 09/26/17 08:00 Temperature 97.9 F 98 F 98.0 F Pulse Rate 54 L 68 65 Respiratory Rate 18 18 20 Blood Pressure 137/65 122/65 119/57 L Pulse Oximetry 100 100 96 09/26/17 12:00 Temperature 98.7 F Pulse Rate 77 Respiratory Rate 20 Blood Pressure 123/58 L Pulse Oximetry 97 Intake & Output 09/25/17 09/26/17 09/26/17 18:59 06:59 18:59 Intake Total 960 / 960 960 / 960 Output Total 1800 / 1800 350 / 350 Balance -840 / -840 610 / 610 Weight 68.6 kg Intake: Oral 960 / 960 960 / 960 Output: Urine 1800 / 1800 350 / 350 Other: Date of Last Bowel Movement 09/25/17 09/26/17 # Bowel Movements 0 1 Narrative: GENERAL: AAOx3, no acute distress SKIN: Warm and dry. No rashes. Palpable swelling is mild around pacemaker, no erythema, no induration HEAD: Atruamtic, normocephalic. EYES: No scleral icterus. No injection or drainage. ENT: Moist mucous membranes, patent nares, no erythema of oropharynx. NECK: Supple, trachea midline. No JVD or lymphadenopathy. Normal thyroid. CARDIOVASCULAR: Regular rate and rhythm, midsystolic click. 3/6 murmur, no gallops, or rubs. RESPIRATORY: Breath sounds clear equal bilaterally. No crackles or wheezes. No accessory muscle use. GASTROINTESTINAL: Abdomen soft, non-tender, nondistended, normal active bowel sounds MUSCULOSKELETAL: No cyanosis, or edema. NEURO: CN II-XII grossly intact, no focal deficits, no slurring of speech Results - Labs CBC & Chem 7: 09/26/17 06:53 09/26/17 06:53 Laboratory Results - last 24 hr 09/25/17 09/25/17 09/26/17 16:00 16:00 06:53 WBC 7.2 RBC 3.61 L Hgb 10.0 L Hct 31.5 L MCV 87.2 MCH 27.8 MCHC 31.8 L RDW 16.6 Plt Count 475 H MPV 8.2 PT INR Sodium 138 Potassium 3.9 Chloride 106 Carbon Dioxide 25.7 Anion Gap 6 BUN 8 Creatinine 0.87 Estimated GFR 78 L Random Glucose 88 Calcium 8.7 Ammonia 57 H 09/26/17 09/26/17 09/26/17 06:53 06:53 06:53 WBC RBC Hgb Hct MCV MCH MCHC RDW Plt Count MPV PT 23.3 H INR 2.3 Sodium 140 Potassium 3.9 Chloride 108 H Carbon Dioxide 23.7 Anion Gap 8 BUN 12 Creatinine 1.00 Estimated GFR 67 L Random Glucose 79 Calcium 8.7 Ammonia 128 H Assessment and Plan - Assessment (1) Fever of unknown origin Code(s): R50.9 - Fever, unspecified Status: Acute (2) H/O mitral valve replacement with mechanical valve Code(s): Z95.2 - Presence of prosthetic heart valve Status: Acute (3) History of tricuspid valve replacement with mechanical valve Code(s): Z95.2 - Presence of prosthetic heart valve Status: Acute - Plan 26-year-old female with history of IV drug use admitted for recurrent fever of unknown origin Fever of unknown origin Blood cultures so far negative TAO showed no vegetations Leukocytosis normalized Infectious disease discontinued all antibiotics, patient cleared for discharge Consider sinusitis, tooth abscess, other Recommend continuation of suppressive dose of doxycycline 100 mg daily as outpatient Hyperammonemia Patient had episode yesterday that was seizure-like Ammonia level was checked and was elevated Continue lactulose Recheck ammonia level with a.m. labs Seizure precautions Pacemaker site pain Ultrasound of pacemaker site showed no abscess This pain is patient's main complaint, not covered well with Percocet Pacemaker was interrogated today, no events surrounding fallout episode this morning DVT prophylaxis Heparin bridging to Coumadin, INR remains at 2.3 Discharge planning May discharge home when ammonia levels are normalized and patient is therapeutic on Coumadin, when INR greater than 2.5
[2017-09-27] MEDS: oxyCODONE/Acetaminophen 10/325 Tablet PO PRN ×3 (00:14→15:41)
[2017-09-27] MEDS: LORazepam 1 MG Tablet PO SCH ×2 (08:45→20:47)
[2017-09-27] MEDS: levETIRAcetam 500 MG Tablet PO SCH ×2 (08:45→20:47)
[2017-09-27] MEDS: Senna/Docusate Sodium 8.6/50 MG Tablet PO SCH ×3 (08:45→20:54)
[2017-09-27] MEDS: FLUoxetine 20 MG Capsule PO SCH (08:45)
[2017-09-27] MEDS: Heparin - SQ 10,000 UNITS/ML Vial SQ SCH ×2 (08:46→20:48)
[2017-09-27] MEDS: Topiramate 25 MG Tablet PO SCH ×2 (08:46→20:48)
[2017-09-27 09:28] LABS: Hematocrit 34.2 % (35.0-46.0); Mean Corpuscular HGB Conc 32.3 % (32.0-36.0); Mean Corpuscular Hemoglobin 28.5 pg (27.0-34.0); Mean Corpuscular Volume 88.1 fL (80.0-100.0); Mean Platelet Volume 7.7 fL (7.0-11.0); Platelet Count 549 th/mm3 (150-450); Red Blood Count 3.88 mil/mm3 (4.00-5.30); Red Cell Distribution Width 15.8 % (11.6-17.2); White Blood Count 9.8 th/mm3 (4.0-11.0)
[2017-09-27 09:43] LABS: INR 2.3 Ratio; Prothrombin Time 23.3 sec (9.8-11.6)
[2017-09-27 10:04] LABS: Calcium 9.2 mg/dL (8.5-10.1); Carbon Dioxide 21.2 meq/L (21.0-32.0); Potassium 3.8 meq/L (3.5-5.1)
--- NOTE | 2017-09-27 12:58 | P.PNIM ---
Subjective Interval history: Patient complains of pacemaker pain today. She also feels that her mental status is not back to baseline. There is an interval improvement in her ammonia level but ammonia levels remain elevated. Physical Exam Vital signs: Vital Signs 09/26/17 16:00 09/26/17 19:50 09/26/17 20:00 Temperature 98.3 F 98.4 F Pulse Rate 69 74 81 Respiratory Rate 20 17 Blood Pressure 128/72 152/75 H Pulse Oximetry 96 96 09/27/17 00:00 09/27/17 03:50 09/27/17 04:00 Temperature 98.6 F 98.3 F Pulse Rate 88 86 77 Respiratory Rate 16 17 Blood Pressure 157/67 H 117/56 L Pulse Oximetry 96 96 09/27/17 08:00 Temperature 98.1 F Pulse Rate 65 Respiratory Rate 18 Blood Pressure 159/74 H Pulse Oximetry 96 Intake & Output 09/26/17 09/27/17 09/27/17 18:59 06:59 18:59 Intake Total 120 / 120 Output Total 300 / 300 Balance -180 / -180 Weight 66.5 kg Intake: Oral 120 / 120 Output: Urine 300 / 300 Other: Date of Last Bowel Movement 09/26/17 # Bowel Movements 2 Narrative: GENERAL: NAD, A&Ox3 HEAD: Normocephalic. NECK: Supple, trachea midline. No lymphadenopathy. EYES: No scleral icterus. No injection or drainage. CARDIOVASCULAR: Regular rate and rhythm without murmurs, gallops, or rubs. RESPIRATORY: Breath sounds equal bilaterally. No accessory muscle use. GASTROINTESTINAL: Abdomen soft, non-tender, nondistended. MUSCULOSKELETAL: No cyanosis, or edema. SKIN: Warm and dry. NEURO: No focal neurological deficits. Results - Labs CBC & Chem 7: 09/27/17 09:03 09/27/17 09:03 Laboratory Results - last 24 hr 09/27/17 09/27/17 09/27/17 09:03 09:03 09:03 WBC 9.8 RBC 3.88 L Hgb 11.0 L Hct 34.2 L MCV 88.1 MCH 28.5 MCHC 32.3 RDW 15.8 Plt Count 549 H MPV 7.7 PT 23.3 H INR 2.3 Sodium 137 Potassium 3.8 Chloride 106 Carbon Dioxide 21.2 Anion Gap 10 BUN 15 Creatinine 0.97 Estimated GFR 69 L Random Glucose 88 Calcium 9.2 Ammonia 09/27/17 09:03 WBC RBC Hgb Hct MCV MCH MCHC RDW Plt Count MPV PT INR Sodium Potassium Chloride Carbon Dioxide Anion Gap BUN Creatinine Estimated GFR Random Glucose Calcium Ammonia 54 H Assessment and Plan - Assessment (1) Fever of unknown origin Code(s): R50.9 - Fever, unspecified Status: Acute (2) H/O mitral valve replacement with mechanical valve Code(s): Z95.2 - Presence of prosthetic heart valve Status: Acute (3) History of tricuspid valve replacement with mechanical valve Code(s): Z95.2 - Presence of prosthetic heart valve Status: Acute - Plan 26-year-old female with history of IV drug use admitted for recurrent fever of unknown origin Fever of unknown origin Blood cultures are negative TAO showed no vegetations Leukocytosis normalized Cleared for discharge by ID Considering doxycycline at discharge Hyperammonemia Hepatic encephalopathy Mental status is not back to baseline Continue monitoring ammonia levels Pacemaker site pain Ultrasound of pacemaker site showed no abscess Continue Percocet for pain Pacemaker was interrogated showed no abnormality DVT prophylaxis Heparin bridging to Coumadin, INR remains at 2.3 Coumadin level increased to 6 mg daily Discharge planning May discharge home when ammonia levels are improved and stabilized and patient is therapeutic on Coumadin, when INR greater than 2.5
[2017-09-28] MEDS: oxyCODONE/Acetaminophen 10/325 Tablet PO PRN ×3 (02:44→20:41)
[2017-09-28] MEDS ORDERED: Morphine Inj 4 MG/ML Vial IV.PUSH ONE (04:45)
[2017-09-28 06:01] LABS: Baso # (Auto) 0.1 th/mm3 (0.0-0.2); Baso % (Auto) 1.5 % (0.0-2.0); Eos # (Auto) 0.3 th/mm3 (0.0-0.4); Eos % (Auto) 3.8 % (0.0-4.0); Hematocrit 35.2 % (35.0-46.0); Hemoglobin 11.4 gm/dL (11.6-15.3); Lymph # (Auto) 2.4 th/mm3 (1.0-4.8); Lymph % (Auto) 26.3 % (9.0-44.0); Mean Corpuscular HGB Conc 32.4 % (32.0-36.0); Mean Corpuscular Hemoglobin 28.6 pg (27.0-34.0); Mean Corpuscular Volume 88.2 fL (80.0-100.0); Mean Platelet Volume 7.9 fL (7.0-11.0); Mono # (Auto) 1.2 th/mm3 (0.0-0.9); Mono % (Auto) 13.6 % (0.0-8.0); Neut % (Auto) 54.8 % (16.0-70.0); Platelet Count 574 th/mm3 (150-450); Red Blood Count 3.99 mil/mm3 (4.00-5.30); Red Cell Distribution Width 15.7 % (11.6-17.2); White Blood Count 9.2 th/mm3 (4.0-11.0)
[2017-09-28 06:11] LABS: INR 3.1 Ratio; Prothrombin Time 31.3 sec (9.8-11.6)
[2017-09-28 06:26] LABS: Anion Gap 7 meq/L (5-15); Aspartate Aminotransferase 23 U/L (15-37); Blood Urea Nitrogen 14 mg/dL (7-18); Calcium 8.8 mg/dL (8.5-10.1); Carbon Dioxide 23.6 meq/L (21.0-32.0); Chloride 106 meq/L (98-107); Glomerular Filtration Rate 68 mL/min (>89); Glucose,Random 68 mg/dL (74-106); Potassium 3.6 meq/L (3.5-5.1); Sodium 137 meq/L (136-145)
[2017-09-28 06:31] LABS: Alanine Aminotransferase 22 U/L (10-53); Alkaline Phosphatase 173 U/L (45-117)
--- NOTE | 2017-09-28 08:39 | ECG ---
Date Performed: 09/28/2017 Time Performed: 04:09:46 PTAGE: 26 years EKG: Possible ectopic atrial rhythm. Right ventricular hypertrophy Septal and lateral ST-T byrd es are probably due to ventricular hypertrophy Abnormal ECG Compared to PREVIOUS TRACING , no longer tachycardic DOCTOR: Neida Rader Interpretating Date/Time 09/28/2017 08:38:56
[2017-09-28] MEDS: Senna/Docusate Sodium 8.6/50 MG Tablet PO SCH ×2 (09:31→20:42)
[2017-09-28] MEDS: LORazepam 1 MG Tablet PO SCH ×2 (09:32→20:42)
[2017-09-28] MEDS: levETIRAcetam 500 MG Tablet PO SCH ×2 (09:32→20:41)
[2017-09-28] MEDS: Heparin - SQ 10,000 UNITS/ML Vial SQ SCH (09:32)
[2017-09-28] MEDS: Topiramate 25 MG Tablet PO SCH ×2 (09:33→20:42)
[2017-09-28] MEDS: FLUoxetine 20 MG Capsule PO SCH (09:33)
--- NOTE | 2017-09-28 11:45 | P.PNIM ---
Subjective Interval history: INR is currently 3.1 which is following within therapeutic range for the first time. The patient's ammonia level slightly elevated compared to previous day. Currently levels at 58. This would not be worrisome otherwise except patient is expressing that she is having hallucinations. Physical Exam Vital signs: Vital Signs 09/27/17 12:00 09/27/17 16:00 09/27/17 20:00 Temperature 98.6 F 98.5 F 98.7 F Pulse Rate 69 75 72 Respiratory Rate 18 18 16 Blood Pressure 131/60 115/55 L 112/56 L Pulse Oximetry 96 97 97 09/28/17 00:00 09/28/17 00:51 09/28/17 04:00 Temperature 98.5 F Pulse Rate 77 69 78 Respiratory Rate 17 Blood Pressure 110/59 L Pulse Oximetry 97 09/28/17 07:46 09/28/17 08:14 Temperature 98.4 F Pulse Rate 63 Respiratory Rate 16 16 Blood Pressure 113/59 L Pulse Oximetry Intake & Output 09/27/17 09/28/17 09/28/17 18:59 06:59 18:59 Weight 67.2 kg Other: Date of Last Bowel Movement 09/26/17 Narrative: GENERAL: NAD, A&Ox3 HEAD: Normocephalic. NECK: Supple, trachea midline. No lymphadenopathy. EYES: No scleral icterus. No injection or drainage. CARDIOVASCULAR: Regular rate and rhythm without murmurs, gallops, or rubs. RESPIRATORY: Breath sounds equal bilaterally. No accessory muscle use. GASTROINTESTINAL: Abdomen soft, non-tender, nondistended. MUSCULOSKELETAL: No cyanosis, or edema. SKIN: Warm and dry. NEURO: No focal neurological deficits. Results - Labs CBC & Chem 7: 09/28/17 05:36 09/28/17 05:36 Laboratory Results - last 24 hr 09/28/17 09/28/17 09/28/17 05:36 05:36 05:36 WBC 9.2 RBC 3.99 L Hgb 11.4 L Hct 35.2 MCV 88.2 MCH 28.6 MCHC 32.4 RDW 15.7 Plt Count 574 H MPV 7.9 Neut % (Auto) 54.8 Lymph % (Auto) 26.3 [place] % (Auto) 13.6 H Eos % (Auto) 3.8 Baso % (Auto) 1.5 Neut # (Auto) 5.0 Lymph # (Auto) 2.4 [place] # (Auto) 1.2 H Eos # (Auto) 0.3 Baso # (Auto) 0.1 WBC Differential . Differential Comment Auto diff final PT 31.3 H INR 3.1 Sodium 137 Potassium 3.6 Chloride 106 Carbon Dioxide 23.6 Anion Gap 7 BUN 14 Creatinine 0.98 Estimated GFR 68 L Random Glucose 68 L Calcium 8.8 Total Bilirubin 0.6 AST 23 ALT 22 Alkaline Phosphatase 173 H Ammonia Troponin I Less than 0.02 L Total Protein 9.0 H Albumin 4.0 09/28/17 05:36 WBC RBC Hgb Hct MCV MCH MCHC RDW Plt Count MPV Neut % (Auto) Lymph % (Auto) [place] % (Auto) Eos % (Auto) Baso % (Auto) Neut # (Auto) Lymph # (Auto) [place] # (Auto) Eos # (Auto) Baso # (Auto) WBC Differential Differential Comment PT INR Sodium Potassium Chloride Carbon Dioxide Anion Gap BUN Creatinine Estimated GFR Random Glucose Calcium Total Bilirubin AST ALT Alkaline Phosphatase Ammonia 58 H Troponin I Total Protein Albumin Assessment and Plan - Assessment (1) Fever of unknown origin Code(s): R50.9 - Fever, unspecified Status: Acute (2) H/O mitral valve replacement with mechanical valve Code(s): Z95.2 - Presence of prosthetic heart valve Status: Acute (3) History of tricuspid valve replacement with mechanical valve Code(s): Z95.2 - Presence of prosthetic heart valve Status: Acute - Plan 26-year-old female with history of IV drug use admitted for recurrent fever of unknown origin Lactulose increased to further improve ammonia levels. Continue to monitor INR at increased Coumadin dosing. Therapeutic goal for INR is 2.5-3.5. Fever of unknown origin Blood cultures are negative TAO showed no vegetations Leukocytosis normalized Cleared for discharge by ID Considering doxycycline at discharge Hyperammonemia Hepatic encephalopathy Mental status is not back to baseline Continue monitoring ammonia levels Pacemaker site pain Ultrasound of pacemaker site showed no abscess Continue Percocet for pain Pacemaker was interrogated showed no abnormality DVT prophylaxis Heparin bridging to Coumadin, INR remains at 2.3 Coumadin level increased to 6 mg daily Discharge planning May discharge home when ammonia levels are improved and stabilized and patient is therapeutic on Coumadin, when INR greater than 2.5
[2017-09-29] MEDS: oxyCODONE/Acetaminophen 10/325 Tablet PO PRN ×4 (04:36→23:09)
[2017-09-29 05:36] LABS: INR 2.3 Ratio; Prothrombin Time 23.5 sec (9.8-11.6)
[2017-09-29 05:52] LABS: Alanine Aminotransferase 23 U/L (10-53); Anion Gap 6 meq/L (5-15); Aspartate Aminotransferase 26 U/L (15-37); Blood Urea Nitrogen 15 mg/dL (7-18); Calcium 8.9 mg/dL (8.5-10.1); Carbon Dioxide 23.6 meq/L (21.0-32.0); Chloride 107 meq/L (98-107); Glomerular Filtration Rate 71 mL/min (>89); Glucose,Random 85 mg/dL (74-106); Potassium 3.9 meq/L (3.5-5.1); Sodium 137 meq/L (136-145)
[2017-09-29 05:55] LABS: Alkaline Phosphatase 176 U/L (45-117); Total Protein 9.2 g/dL (6.4-8.2)
[2017-09-29] MEDS: levETIRAcetam 500 MG Tablet PO SCH ×2 (09:27→20:05)
[2017-09-29] MEDS: LORazepam 1 MG Tablet PO SCH ×2 (09:27→20:05)
[2017-09-29] MEDS: FLUoxetine 20 MG Capsule PO SCH (09:28)
[2017-09-29] MEDS: Senna/Docusate Sodium 8.6/50 MG Tablet PO SCH ×2 (09:28→20:05)
[2017-09-29] MEDS: Topiramate 25 MG Tablet PO SCH ×2 (09:28→20:08)
--- NOTE | 2017-09-29 13:05 | P.PNIM ---
Subjective Interval history: Patient has a positive family history of schizophrenia. She still having auditory hallucinations. Etiology could be related to pneumonia. Ammonia levels at 53 today. INR is currently at 2.3. Physical Exam Vital signs: Vital Signs 09/28/17 16:00 09/28/17 16:48 09/28/17 17:00 Temperature 98.3 F Pulse Rate 75 68 Respiratory Rate 18 16 Blood Pressure 137/66 Pulse Oximetry 90 L 09/28/17 20:00 09/29/17 00:00 09/29/17 04:00 Temperature 97.5 F L 98.2 F Pulse Rate 69 67 94 H Respiratory Rate 17 17 Blood Pressure 153/70 H 130/67 Pulse Oximetry 98 100 09/29/17 08:00 09/29/17 12:00 Temperature 98.3 F 98.3 F Pulse Rate 68 76 Respiratory Rate 17 16 Blood Pressure 130/58 L 115/59 L Pulse Oximetry 96 97 Intake & Output 09/28/17 09/29/17 09/29/17 18:59 06:59 18:59 Intake Total 1160 / 1160 1200 / 1200 Output Total 0 / 0 Balance 1160 / 1160 1200 / 1200 Weight 67.7 kg Intake: Oral 1160 / 1160 1200 / 1200 Output: Urine 0 / 0 Other: # Voids 4 4 Date of Last Bowel Movement 09/28/17 09/26/17 # Bowel Movements 3 8 Narrative: GENERAL: NAD, A&Ox3 HEAD: Normocephalic. NECK: Supple, trachea midline. No lymphadenopathy. EYES: No scleral icterus. No injection or drainage. CARDIOVASCULAR: Regular rate and rhythm without murmurs, gallops, or rubs. RESPIRATORY: Breath sounds equal bilaterally. No accessory muscle use. GASTROINTESTINAL: Abdomen soft, non-tender, nondistended. MUSCULOSKELETAL: No cyanosis, or edema. SKIN: Warm and dry. NEURO: No focal neurological deficits. Results - Labs CBC & Chem 7: 09/28/17 05:36 09/29/17 05:13 Laboratory Results - last 24 hr 09/29/17 09/29/17 09/29/17 05:13 05:13 05:13 PT 23.5 H INR 2.3 Sodium 137 Potassium 3.9 Chloride 107 Carbon Dioxide 23.6 Anion Gap 6 BUN 15 Creatinine 0.95 Estimated GFR 71 L Random Glucose 85 Calcium 8.9 Total Bilirubin 0.6 AST 26 ALT 23 Alkaline Phosphatase 176 H Ammonia 53 H Total Protein 9.2 H Albumin 4.0 Assessment and Plan - Assessment (1) Fever of unknown origin Code(s): R50.9 - Fever, unspecified Status: Acute (2) H/O mitral valve replacement with mechanical valve Code(s): Z95.2 - Presence of prosthetic heart valve Status: Acute (3) History of tricuspid valve replacement with mechanical valve Code(s): Z95.2 - Presence of prosthetic heart valve Status: Acute - Plan 26-year-old female with history of IV drug use admitted for recurrent fever of unknown origin Lactulose adjusted yesterday. Follow ammonia levels. Monitor INR and adjust further if necessary. Fever of unknown origin Blood cultures are negative TAO showed no vegetations Leukocytosis normalized Cleared for discharge by ID Considering doxycycline at discharge Hyperammonemia Hepatic encephalopathy Mental status is not back to baseline Continue monitoring ammonia levels Pacemaker site pain Ultrasound of pacemaker site showed no abscess Continue Percocet for pain Pacemaker was interrogated showed no abnormality Mechanical heart valve DVT prophylaxis Heparin bridging to Coumadin, INR remains at 2.3 Coumadin level increased to 6 mg daily Discharge planning May discharge home when ammonia levels are improved and stabilized and patient is therapeutic on Coumadin, when INR greater than 2.5
[2017-09-30] MEDS: oxyCODONE/Acetaminophen 10/325 Tablet PO PRN (06:12)
[2017-09-30 07:12] LABS: Baso # (Auto) 0.3 th/mm3 (0.0-0.2); Baso % (Auto) 3.1 % (0.0-2.0); Eos # (Auto) 0.5 th/mm3 (0.0-0.4); Hematocrit 31.9 % (35.0-46.0); Hemoglobin 10.6 gm/dL (11.6-15.3); Lymph # (Auto) 3.3 th/mm3 (1.0-4.8); Lymph % (Auto) 38.6 % (9.0-44.0); Mean Corpuscular HGB Conc 33.1 % (32.0-36.0); Mean Corpuscular Hemoglobin 28.9 pg (27.0-34.0); Mean Corpuscular Volume 87.2 fL (80.0-100.0); Mean Platelet Volume 7.7 fL (7.0-11.0); Mono # (Auto) 1.2 th/mm3 (0.0-0.9); Mono % (Auto) 13.7 % (0.0-8.0); Neut # (Auto) 3.3 th/mm3 (1.8-7.7); Neut % (Auto) 38.6 % (16.0-70.0); Platelet Count 562 th/mm3 (150-450); Red Blood Count 3.66 mil/mm3 (4.00-5.30); Red Cell Distribution Width 15.7 % (11.6-17.2); White Blood Count 8.6 th/mm3 (4.0-11.0)
[2017-09-30 07:21] LABS: Prothrombin Time 20.1 sec (9.8-11.6)
[2017-09-30 07:37] LABS: Albumin 3.6 g/dL (3.4-5.0); Anion Gap 6 meq/L (5-15); Aspartate Aminotransferase 18 U/L (15-37); Blood Urea Nitrogen 19 mg/dL (7-18); Calcium 8.7 mg/dL (8.5-10.1); Carbon Dioxide 22.9 meq/L (21.0-32.0); Chloride 112 meq/L (98-107); Glomerular Filtration Rate 73 mL/min (>89); Glucose,Random 84 mg/dL (74-106); Potassium 3.9 meq/L (3.5-5.1); Sodium 141 meq/L (136-145)
[2017-09-30 07:41] LABS: Alanine Aminotransferase 21 U/L (10-53); Alkaline Phosphatase 171 U/L (45-117); Total Protein 8.3 g/dL (6.4-8.2)
[2017-09-30] MEDS ORDERED: Heparin - SQ 10,000 UNITS/ML Vial SQ ONE (09:01)
[2017-09-30 10:51] LABS: Activated Partial Thrombo Time 39.9 sec (24.3-30.1); Prothrombin Time 20.4 sec (9.8-11.6)
[2017-09-30] MEDS: LORazepam 1 MG Tablet PO SCH ×2 (11:29→20:54)
[2017-09-30] MEDS: Senna/Docusate Sodium 8.6/50 MG Tablet PO SCH ×2 (11:29→20:54)
[2017-09-30] MEDS: levETIRAcetam 500 MG Tablet PO SCH ×2 (11:29→20:54)
[2017-09-30] MEDS: FLUoxetine 20 MG Capsule PO SCH (11:29)
[2017-09-30] MEDS: Topiramate 25 MG Tablet PO SCH ×2 (11:30→20:54)
[2017-09-30] MEDS ORDERED: oxyCODONE HCL 20 MG Controlled Release Tablet PO ONE (11:57)
--- NOTE | 2017-09-30 12:01 | P.PNIM ---
Subjective Interval history: Ammonia level has increased again. INR is 2.0 today. Patient complains of pain is not controlled, she does not feel that she responds to Percocet as a treatment. Physical Exam Vital signs: Vital Signs 09/29/17 12:00 09/29/17 16:00 09/29/17 20:00 Temperature 98.3 F 97.9 F 98.4 F Pulse Rate 65 65 72 Respiratory Rate 16 16 18 Blood Pressure 115/59 L 113/58 L 148/72 H Pulse Oximetry 97 97 95 09/30/17 00:00 09/30/17 04:00 09/30/17 08:00 Temperature 98.3 F 97.5 F L 98.1 F Pulse Rate 78 66 74 Respiratory Rate 16 16 16 Blood Pressure 139/64 139/71 149/67 H Pulse Oximetry 98 98 96 Intake & Output 09/29/17 09/30/17 09/30/17 18:59 06:59 18:59 Intake Total 960 / 960 Balance 960 / 960 Intake: Oral 960 / 960 Other: # Voids 4 Date of Last Bowel Movement 09/29/17 09/29/17 # Bowel Movements 0 Narrative: GENERAL: NAD, A&Ox3 HEAD: Normocephalic. NECK: Supple, trachea midline. No lymphadenopathy. EYES: No scleral icterus. No injection or drainage. CARDIOVASCULAR: Regular rate and rhythm without murmurs, gallops, or rubs. RESPIRATORY: Breath sounds equal bilaterally. No accessory muscle use. GASTROINTESTINAL: Abdomen soft, non-tender, nondistended. MUSCULOSKELETAL: No cyanosis, or edema. SKIN: Warm and dry. NEURO: No focal neurological deficits. Results - Labs CBC & Chem 7: 09/30/17 06:45 09/30/17 06:45 Laboratory Results - last 24 hr 09/25/17 09/30/17 09/30/17 11:30 06:45 06:45 WBC 8.6 RBC 3.66 L Hgb 10.6 L Hct 31.9 L MCV 87.2 MCH 28.9 MCHC 33.1 RDW 15.7 Plt Count 562 H MPV 7.7 Neut % (Auto) 38.6 Lymph % (Auto) 38.6 Hendricks % (Auto) 13.7 H Eos % (Auto) 6.0 H Baso % (Auto) 3.1 H Neut # (Auto) 3.3 Lymph # (Auto) 3.3 Hendricks # (Auto) 1.2 H Eos # (Auto) 0.5 H Baso # (Auto) 0.3 H WBC Differential . Differential Comment Auto diff final PT 20.1 H INR 2.0 APTT Sodium Potassium Chloride Carbon Dioxide Anion Gap BUN Creatinine Estimated GFR Random Glucose Calcium Total Bilirubin AST ALT Alkaline Phosphatase Ammonia Total Protein Albumin Ur Opiates Confirm Positive A Ur Buprenorphine Negative Ur Heroin Screen Positive A Urine Oxycodone Negative Ur Methadone Negative U Hydromorphone Confirm Positive A Urine Fentanyl Negative Urine Gabapentin Negative Ur Phencyclidine (PCP) Negative Urine MDPV Negative Ur MDMA & Metabolites Negative Ur Synth THC (K2) Negative 09/30/17 09/30/17 09/30/17 06:45 06:45 10:10 WBC RBC Hgb Hct MCV MCH MCHC RDW Plt Count MPV Neut % (Auto) Lymph % (Auto) [place]ricks % (Auto) Eos % (Auto) Baso % (Auto) Neut # (Auto) Lymph # (Auto) [place]ricks # (Auto) Eos # (Auto) Baso # (Auto) WBC Differential Differential Comment PT 20.4 H INR 2.0 APTT 39.9 H Sodium 141 Potassium 3.9 Chloride 112 H Carbon Dioxide 22.9 Anion Gap 6 BUN 19 H Creatinine 0.92 Estimated GFR 73 L Random Glucose 84 Calcium 8.7 Total Bilirubin 0.4 AST 18 ALT 21 Alkaline Phosphatase 171 H Ammonia 77 H Total Protein 8.3 H D Albumin 3.6 Ur Opiates Confirm Ur Buprenorphine Ur Heroin Screen Urine Oxycodone Ur Methadone U Hydromorphone Confirm Urine Fentanyl Urine Gabapentin Ur Phencyclidine (PCP) Urine MDPV Ur MDMA & Metabolites Ur Synth THC (K2) Assessment and Plan - Assessment (1) Fever of unknown origin Code(s): R50.9 - Fever, unspecified Status: Acute (2) H/O mitral valve replacement with mechanical valve Code(s): Z95.2 - Presence of prosthetic heart valve Status: Acute (3) History of tricuspid valve replacement with mechanical valve Code(s): Z95.2 - Presence of prosthetic heart valve Status: Acute - Plan 26-year-old female with history of IV drug use admitted for recurrent fever of unknown origin Ammonia level not yet controlled. Protein restriction added. Lactulose increased to 4 times a day. Follow ammonia levels. Hypo-therapeutic Coumadin level. Heparin drip reinitiated. Coumadin dosing increased to 7.5 mg daily. Monitor INR and adjust further if necessary. Fever of unknown origin Blood cultures are negative TAO showed no vegetations Leukocytosis normalized Cleared for discharge by ID Considering doxycycline at discharge Hyperammonemia Hepatic encephalopathy Not yet controlled Protein restriction Continue lactulose Mental status is not back to baseline Continue monitoring ammonia levels Pacemaker site pain Ultrasound of pacemaker site showed no abscess Continue Percocet for pain Pacemaker was interrogated showed no abnormality Mechanical heart valve DVT prophylaxis Heparin bridging to Coumadin Continue Coumadin Follow INR Discharge planning May discharge home when ammonia levels are improved and stabilized and patient is therapeutic on Coumadin, when INR greater than 2.5
[2017-10-01 07:20] LABS: Hematocrit 31.4 % (35.0-46.0); Hemoglobin 10.4 gm/dL (11.6-15.3); Mean Corpuscular HGB Conc 33.1 % (32.0-36.0); Mean Corpuscular Hemoglobin 29.1 pg (27.0-34.0); Mean Corpuscular Volume 87.9 fL (80.0-100.0); Mean Platelet Volume 7.6 fL (7.0-11.0); Platelet Count 557 th/mm3 (150-450); Red Blood Count 3.57 mil/mm3 (4.00-5.30); Red Cell Distribution Width 15.8 % (11.6-17.2)
[2017-10-01 07:34] LABS: Prothrombin Time 20.6 sec (9.8-11.6)
[2017-10-01] MEDS: oxyCODONE HCL 20 MG Controlled Release Tablet PO SCH ×2 (10:59→21:11)
[2017-10-01] MEDS: FLUoxetine 20 MG Capsule PO SCH (10:59)
[2017-10-01] MEDS: LORazepam 1 MG Tablet PO SCH ×2 (11:00→21:11)
[2017-10-01] MEDS: Senna/Docusate Sodium 8.6/50 MG Tablet PO SCH ×2 (11:00→21:11)
[2017-10-01] MEDS: Topiramate 25 MG Tablet PO SCH ×2 (11:00→21:11)
[2017-10-01] MEDS: levETIRAcetam 500 MG Tablet PO SCH ×2 (11:00→21:11)
[2017-10-01] MEDS: Heparin Drip 25,000 UNIT/250 ML BAG IV.CONT PRN (11:01)
--- NOTE | 2017-10-01 13:40 | P.PNIM ---
Subjective Interval history: Interval improvement ammonia level from 77 down to 67. Patient still reports that she is hallucinating. Her INR remains at 2.0 despite previous increase of Coumadin. Physical Exam Vital signs: Vital Signs 09/30/17 16:00 09/30/17 19:50 09/30/17 20:00 Temperature 98.6 F 98.0 F Pulse Rate 94 H 70 63 Respiratory Rate 17 20 Blood Pressure 169/77 H 171/86 H Pulse Oximetry 100 99 10/01/17 00:00 10/01/17 03:45 10/01/17 04:00 Temperature 98.0 F 98.0 F Pulse Rate 66 61 65 Respiratory Rate 20 20 Blood Pressure 172/87 H 172/84 H Pulse Oximetry 98 98 10/01/17 08:00 Temperature 98.3 F Pulse Rate 65 Respiratory Rate 18 Blood Pressure 146/66 H Pulse Oximetry 98 Intake & Output 09/30/17 10/01/17 10/01/17 18:59 06:59 18:59 Intake Total 480 / 480 Balance 480 / 480 Weight 68.2 kg Intake: Oral 480 / 480 Other: Date of Last Bowel Movement 09/30/17 09/30/17 # Bowel Movements 1 Narrative: GENERAL: NAD, A&Ox3 HEAD: Normocephalic. NECK: Supple, trachea midline. No lymphadenopathy. EYES: No scleral icterus. No injection or drainage. CARDIOVASCULAR: Regular rate and rhythm without murmurs, gallops, or rubs. RESPIRATORY: Breath sounds equal bilaterally. No accessory muscle use. GASTROINTESTINAL: Abdomen soft, non-tender, nondistended. MUSCULOSKELETAL: No cyanosis, or edema. SKIN: Warm and dry. NEURO: No focal neurological deficits. Results - Labs CBC & Chem 7: 10/01/17 06:55 09/30/17 06:45 Laboratory Results - last 24 hr 09/30/17 10/01/17 10/01/17 15:53 06:55 06:55 WBC 9.0 RBC 3.57 L Hgb 10.4 L Hct 31.4 L MCV 87.9 MCH 29.1 MCHC 33.1 RDW 15.8 Plt Count 557 H MPV 7.6 PT 20.6 H INR 2.0 APTT 40.8 H Ammonia 10/01/17 06:55 WBC RBC Hgb Hct MCV MCH MCHC RDW Plt Count MPV PT INR APTT Ammonia 67 H Assessment and Plan - Assessment (1) Fever of unknown origin Code(s): R50.9 - Fever, unspecified Status: Acute (2) H/O mitral valve replacement with mechanical valve Code(s): Z95.2 - Presence of prosthetic heart valve Status: Acute (3) History of tricuspid valve replacement with mechanical valve Code(s): Z95.2 - Presence of prosthetic heart valve Status: Acute - Plan 26-year-old female with history of IV drug use admitted for recurrent fever of unknown origin Coumadin increased to 10 mg daily. Continue to monitor INR. Continue monitoring ammonia. Low protein diet. Lactulose 4 times a day. Stability pneumonia and therapeutic INR are both needed prior to consideration for discharge. Fever of unknown origin Blood cultures are negative TAO showed no vegetations Leukocytosis normalized Cleared for discharge by ID Considering doxycycline at discharge Hyperammonemia Hepatic encephalopathy Not yet controlled Protein restriction Continue lactulose Mental status is not back to baseline Continue monitoring ammonia levels Pacemaker site pain Ultrasound of pacemaker site showed no abscess Continue Percocet for pain Pacemaker was interrogated showed no abnormality Mechanical heart valve DVT prophylaxis Heparin bridging to Coumadin Continue Coumadin Follow INR Discharge planning May discharge home when ammonia levels are improved and stabilized and patient is therapeutic on Coumadin, when INR greater than 2.5
[2017-10-01] MEDS: Acetaminophen 325 MG Tablet PO PRN (23:02)
[2017-10-02] MEDS ORDERED: Ibuprofen 600 MG Tablet PO ONE (00:58)
[2017-10-02] MEDS ORDERED: Vancomycin Inj 1 GM/200 ML PIGGYBACK IV.SIG ONE (01:00)
--- NOTE | 2017-10-02 01:12 | XR ---
EXAM DATE: 10/02/2017 1:04 AM EDT AGE/SEX: 26 years / Female INDICATIONS: Fever. CLINICAL DATA: This is the patient's initial encounter. Patient reports that signs and symptoms have been present for 1 day and indicates a pain score of 0/10. MEDICAL/SURGICAL HISTORY: . Stroke. Seizure. Subacute bacterial endocarditis . Pacemaker. Carlos ral Valve replacement with mechanical valve. Tricuspid valve replacement with mechanical valve. COMPARISON: HPO, CHEST 1V SINGLE AP, 09/14/2017. . FINDINGS: Median sternotomy wires, cardiac valvular prostheses and a pacer device are noted. The lungs are sharonda r. CONCLUSION: Clear lungs. Electronically signed by: Anup Brown MD 10/02/2017 1:10 AM EDT
[2017-10-02] MEDS ORDERED: Vancomycin Inj 1,000 MG in Sodium Chlor 0.9% Inj 250 ML IV.SIG ONE (02:00)
[2017-10-02] MEDS: oxyCODONE HCL 20 MG Controlled Release Tablet PO SCH ×2 (08:42→21:09)
[2017-10-02] MEDS: Topiramate 25 MG Tablet PO SCH ×2 (08:42→21:09)
[2017-10-02] MEDS: Senna/Docusate Sodium 8.6/50 MG Tablet PO SCH ×2 (08:43→21:09)
[2017-10-02] MEDS: levETIRAcetam 500 MG Tablet PO SCH ×2 (08:43→21:09)
[2017-10-02] MEDS: FLUoxetine 20 MG Capsule PO SCH (08:43)
[2017-10-02] MEDS: LORazepam 1 MG Tablet PO SCH ×2 (08:43→21:09)
[2017-10-02 13:03] LABS: Baso # (Auto) 0.2 th/mm3 (0.0-0.2); Eos # (Auto) 0.3 th/mm3 (0.0-0.4); Eos % (Auto) 2.7 % (0.0-4.0); Hematocrit 30.3 % (35.0-46.0); Hemoglobin 10.2 gm/dL (11.6-15.3); Lymph # (Auto) 2.1 th/mm3 (1.0-4.8); Lymph % (Auto) 20.1 % (9.0-44.0); Mean Corpuscular HGB Conc 33.8 % (32.0-36.0); Mean Corpuscular Hemoglobin 29.3 pg (27.0-34.0); Mean Corpuscular Volume 86.6 fL (80.0-100.0); Mean Platelet Volume 7.8 fL (7.0-11.0); Mono # (Auto) 0.4 th/mm3 (0.0-0.9); Mono % (Auto) 4.3 % (0.0-8.0); Neut # (Auto) 7.2 th/mm3 (1.8-7.7); Neut % (Auto) 70.9 % (16.0-70.0); Platelet Count 537 th/mm3 (150-450); Red Cell Distribution Width 15.9 % (11.6-17.2); White Blood Count 10.2 th/mm3 (4.0-11.0)
[2017-10-02 13:17] LABS: INR 3.3 Ratio; Prothrombin Time 33.5 sec (9.8-11.6)
[2017-10-02 13:30] LABS: Activated Partial Thrombo Time 117.9 sec (24.3-30.1)
[2017-10-02 13:31] LABS: Albumin 3.3 g/dL (3.4-5.0); Anion Gap 7 meq/L (5-15); Aspartate Aminotransferase 21 U/L (15-37); Blood Urea Nitrogen 13 mg/dL (7-18); Calcium 8.2 mg/dL (8.5-10.1); Carbon Dioxide 19.6 meq/L (21.0-32.0); Chloride 114 meq/L (98-107); Glomerular Filtration Rate 80 mL/min (>89); Glucose,Random 106 mg/dL (74-106); Potassium 3.2 meq/L (3.5-5.1); Sodium 141 meq/L (136-145)
[2017-10-02 13:32] LABS: Alanine Aminotransferase 20 U/L (10-53)
[2017-10-02 13:34] LABS: Alkaline Phosphatase 173 U/L (45-117); Total Protein 7.8 g/dL (6.4-8.2)
--- NOTE | 2017-10-02 14:07 | P.PNIM ---
Subjective Interval history: INR is now at 3.3. Ammonia level is at 52. Patient still has hallucinations. Physical Exam Vital signs: Vital Signs 10/01/17 16:00 10/01/17 20:00 10/02/17 00:00 Temperature 98.1 F 98.3 F 102.9 F H Pulse Rate 67 65 99 H Respiratory Rate 18 16 17 Blood Pressure 128/58 L 102/53 L 140/69 Pulse Oximetry 97 99 95 10/02/17 04:00 10/02/17 08:00 10/02/17 12:00 Temperature 98.3 F 98.2 F 98.3 F Pulse Rate 70 70 62 Respiratory Rate 16 17 17 Blood Pressure 103/47 L 99/50 L 103/55 L Pulse Oximetry 97 98 99 Intake & Output 10/01/17 10/02/17 10/02/17 18:59 06:59 18:59 Intake Total 350 / 350 100 / 100 Balance 350 / 350 100 / 100 Weight 68.2 kg Intake: IV 350 / 350 100 / 100 Maxipime Inj 2,000 MG In NS Inj 100 / 100 100 / 100 100 ML @ 200 mls/hr IV.SIG Q8H HENRI Rx#:[id number] Vancomycin Inj 1,000 MG In NS 250 / 250 Inj 250 ML @ 250 mls/hr IV.SIG ONCE ONE Rx#:[id number] Other: Date of Last Bowel Movement 10/01/17 10/01/17 Narrative: GENERAL: NAD, A&Ox3 HEAD: Normocephalic. NECK: Supple, trachea midline. No lymphadenopathy. EYES: No scleral icterus. No injection or drainage. CARDIOVASCULAR: Regular rate and rhythm without murmurs, gallops, or rubs. RESPIRATORY: Breath sounds equal bilaterally. No accessory muscle use. GASTROINTESTINAL: Abdomen soft, non-tender, nondistended. MUSCULOSKELETAL: No cyanosis, or edema. SKIN: Warm and dry. NEURO: No focal neurological deficits. Results - Labs CBC & Chem 7: 10/02/17 12:27 10/02/17 12:27 Laboratory Results - last 24 hr 10/01/17 10/02/17 10/02/17 20:49 12:27 12:27 WBC 10.2 RBC 3.50 L Hgb 10.2 L Hct 30.3 L MCV 86.6 MCH 29.3 MCHC 33.8 RDW 15.9 Plt Count 537 H MPV 7.8 Neut % (Auto) 70.9 H Lymph % (Auto) 20.1 [place] % (Auto) 4.3 Eos % (Auto) 2.7 Baso % (Auto) 2.0 Neut # (Auto) 7.2 Lymph # (Auto) 2.1 [place] # (Auto) 0.4 Eos # (Auto) 0.3 Baso # (Auto) 0.2 WBC Differential . Differential Comment Auto diff final PT INR APTT 79.3 H D Sodium 141 Potassium 3.2 L Chloride 114 H Carbon Dioxide 19.6 L Anion Gap 7 BUN 13 Creatinine 0.85 Estimated GFR 80 L Random Glucose 106 Calcium 8.2 L Total Bilirubin 0.6 AST 21 ALT 20 Alkaline Phosphatase 173 H Ammonia Total Protein 7.8 Albumin 3.3 L 10/02/17 10/02/17 12:27 12:27 WBC RBC Hgb Hct MCV MCH MCHC RDW Plt Count MPV Neut % (Auto) Lymph % (Auto) [place] % (Auto) Eos % (Auto) Baso % (Auto) Neut # (Auto) Lymph # (Auto) [place] # (Auto) Eos # (Auto) Baso # (Auto) WBC Differential Differential Comment PT 33.5 H D INR 3.3 APTT 117.9 H* D Sodium Potassium Chloride Carbon Dioxide Anion Gap BUN Creatinine Estimated GFR Random Glucose Calcium Total Bilirubin AST ALT Alkaline Phosphatase Ammonia 52 H Total Protein Albumin - Imaging Impressions Chest X-Ray 10/02/17 00:45 CONCLUSION: Clear lungs. Assessment and Plan - Assessment (1) Fever of unknown origin Code(s): R50.9 - Fever, unspecified Status: Acute (2) H/O mitral valve replacement with mechanical valve Code(s): Z95.2 - Presence of prosthetic heart valve Status: Acute (3) History of tricuspid valve replacement with mechanical valve Code(s): Z95.2 - Presence of prosthetic heart valve Status: Acute - Plan 26-year-old female with history of IV drug use admitted for recurrent fever of unknown origin Continue to follow INR and Ammonia levels. Consider psych consult if hallucinations persist once ammonia levels stable. Labs ordered for further monitoring. Heparin will be discontinued if INR stable for two days. Fever of unknown origin Blood cultures are negative TAO showed no vegetations Leukocytosis normalized Cleared for discharge by ID Considering doxycycline at discharge Hyperammonemia Hepatic encephalopathy Not yet controlled Protein restriction Continue lactulose Mental status is not back to baseline Continue monitoring ammonia levels Pacemaker site pain Ultrasound of pacemaker site showed no abscess Continue Percocet for pain Pacemaker was interrogated showed no abnormality Mechanical heart valve DVT prophylaxis Heparin bridging to Coumadin Continue Coumadin Follow INR INR goal 2.5 to 3.5 Discharge planning May discharge home when ammonia levels are improved and stabilized and patient is therapeutic on Coumadin, when INR greater than 2.5
[2017-10-02] MEDS: Heparin Drip 25,000 UNIT/250 ML BAG IV.CONT PRN (18:32)
[2017-10-03 03:21] LABS: Baso # (Auto) 0.1 th/mm3 (0.0-0.2); Eos # (Auto) 0.3 th/mm3 (0.0-0.4); Eos % (Auto) 2.2 % (0.0-4.0); Hematocrit 29.8 % (35.0-46.0); Hemoglobin 9.9 gm/dL (11.6-15.3); Lymph # (Auto) 1.3 th/mm3 (1.0-4.8); Lymph % (Auto) 9.6 % (9.0-44.0); Mean Corpuscular HGB Conc 33.1 % (32.0-36.0); Mean Corpuscular Hemoglobin 28.5 pg (27.0-34.0); Mono # (Auto) 0.9 th/mm3 (0.0-0.9); Mono % (Auto) 6.6 % (0.0-8.0); Neut # (Auto) 10.5 th/mm3 (1.8-7.7); Neut % (Auto) 80.6 % (16.0-70.0); Platelet Count 486 th/mm3 (150-450); Red Blood Count 3.46 mil/mm3 (4.00-5.30); Red Cell Distribution Width 15.6 % (11.6-17.2); White Blood Count 13.1 th/mm3 (4.0-11.0)
[2017-10-03 03:25] LABS: INR 4.3 Ratio; Prothrombin Time 42.8 sec (9.8-11.6)
[2017-10-03 03:32] LABS: Alkaline Phosphatase 167 U/L (45-117); Total Protein 7.5 g/dL (6.4-8.2)
[2017-10-03 03:36] LABS: Alanine Aminotransferase 20 U/L (10-53); Albumin 3.1 g/dL (3.4-5.0); Anion Gap 7 meq/L (5-15); Aspartate Aminotransferase 27 U/L (15-37); Blood Urea Nitrogen 11 mg/dL (7-18); Calcium 8.3 mg/dL (8.5-10.1); Carbon Dioxide 18.6 meq/L (21.0-32.0); Chloride 115 meq/L (98-107); Glomerular Filtration Rate 75 mL/min (>89); Glucose,Random 110 mg/dL (74-106); Potassium 3.7 meq/L (3.5-5.1); Sodium 141 meq/L (136-145)
[2017-10-03] MEDS: LORazepam 1 MG Tablet PO SCH ×2 (09:16→21:57)
[2017-10-03] MEDS: levETIRAcetam 500 MG Tablet PO SCH ×2 (09:16→21:57)
[2017-10-03] MEDS: FLUoxetine 20 MG Capsule PO SCH (09:16)
[2017-10-03] MEDS: Topiramate 25 MG Tablet PO SCH ×2 (09:16→21:57)
[2017-10-03] MEDS: oxyCODONE HCL 20 MG Controlled Release Tablet PO SCH ×2 (09:17→21:57)
[2017-10-03] MEDS: Senna/Docusate Sodium 8.6/50 MG Tablet PO SCH ×2 (09:20→21:58)
--- NOTE | 2017-10-03 14:35 | P.PNIM ---
Subjective Interval history: Evidence of fungemia on blood culture today. This could be contributory to her FUO and may be contributory to her hallucinations and unstable INR and Ammonia levels. Treatment discussed with patient. Physical Exam Vital signs: Vital Signs 10/02/17 16:00 10/02/17 20:00 10/03/17 00:00 Temperature 98.3 F 98.2 F 99.1 F Pulse Rate 62 76 90 Respiratory Rate 17 17 16 Blood Pressure 122/60 135/61 92/50 L Pulse Oximetry 100 99 95 10/03/17 04:00 Temperature 98.6 F Pulse Rate 73 Respiratory Rate 17 Blood Pressure 106/57 L Pulse Oximetry 97 Intake & Output 10/02/17 10/03/17 10/03/17 18:59 06:59 18:59 Intake Total 1650 / 1650 100 / 100 100 / 100 Output Total 700 / 700 Balance 950 / 950 100 / 100 100 / 100 Weight 68.6 kg Intake: IV 450 / 450 100 / 100 100 / 100 Heparin/D5W 25,000 U/250 mL 25, 250 / 250 000 unit In 250 ml @ Per Protocol IV.CONT TITRATE PRN Rx #:[id number] Maxipime Inj 2,000 MG In NS Inj 200 / 200 100 / 100 100 / 100 100 ML @ 200 mls/hr IV.SIG Q8H HENRI Rx#:[id number] Oral 1200 / 1200 Output: Urine 700 / 700 Other: Date of Last Bowel Movement 09/01/17 10/01/17 # Bowel Movements 1 Narrative: GENERAL: NAD, A&Ox3 HEAD: Normocephalic. NECK: Supple, trachea midline. No lymphadenopathy. EYES: No scleral icterus. No injection or drainage. CARDIOVASCULAR: Regular rate and rhythm without murmurs, gallops, or rubs. RESPIRATORY: Breath sounds equal bilaterally. No accessory muscle use. GASTROINTESTINAL: Abdomen soft, non-tender, nondistended. MUSCULOSKELETAL: No cyanosis, or edema. SKIN: Warm and dry. NEURO: No focal neurological deficits. Results - Labs CBC & Chem 7: 10/03/17 02:47 10/03/17 02:47 Laboratory Results - last 24 hr 10/02/17 10/03/17 10/03/17 20:38 02:47 02:47 WBC 13.1 H RBC 3.46 L Hgb 9.9 L Hct 29.8 L MCV 86.0 MCH 28.5 MCHC 33.1 RDW 15.6 Plt Count 486 H MPV 8.0 Neut % (Auto) 80.6 H Lymph % (Auto) 9.6 [place] % (Auto) 6.6 Eos % (Auto) 2.2 Baso % (Auto) 1.0 Neut # (Auto) 10.5 H Lymph # (Auto) 1.3 [place] # (Auto) 0.9 Eos # (Auto) 0.3 Baso # (Auto) 0.1 WBC Differential . Differential Comment Auto diff final PT 42.8 H INR 4.3 APTT 56.0 H D Sodium Potassium Chloride Carbon Dioxide Anion Gap BUN Creatinine Estimated GFR Random Glucose Calcium Total Bilirubin AST ALT Alkaline Phosphatase Ammonia Total Protein Albumin 10/03/17 10/03/17 10/03/17 02:47 02:47 02:47 WBC RBC Hgb Hct MCV MCH MCHC RDW Plt Count MPV Neut % (Auto) Lymph % (Auto) [place] % (Auto) Eos % (Auto) Baso % (Auto) Neut # (Auto) Lymph # (Auto) [place] # (Auto) Eos # (Auto) Baso # (Auto) WBC Differential Differential Comment PT INR APTT 54.2 H Sodium 141 Potassium 3.7 Chloride 115 H Carbon Dioxide 18.6 L Anion Gap 7 BUN 11 Creatinine 0.90 Estimated GFR 75 L Random Glucose 110 H Calcium 8.3 L Total Bilirubin 0.6 AST 27 ALT 20 Alkaline Phosphatase 167 H Ammonia 52 H Total Protein 7.5 Albumin 3.1 L Microbiology 10/02/17 01:20 Blood - Peripheral Aerobic Blood Culture - Preliminary Yeast - ID to follow 10/02/17 01:20 Blood - Peripheral Anaerobic Blood Culture - Preliminary No growth in 1 day 10/02/17 01:25 Blood - Peripheral Aerobic Blood Culture - Preliminary No growth in 1 day 10/02/17 01:25 Blood - Peripheral Anaerobic Blood Culture - Preliminary No growth in 1 day Assessment and Plan - Assessment (1) Fever of unknown origin Code(s): R50.9 - Fever, unspecified Status: Acute (2) H/O mitral valve replacement with mechanical valve Code(s): Z95.2 - Presence of prosthetic heart valve Status: Acute (3) History of tricuspid valve replacement with mechanical valve Code(s): Z95.2 - Presence of prosthetic heart valve Status: Acute - Plan 26-year-old female with history of IV drug use admitted for recurrent fever of unknown origin Diflucan started for fungemia. Monitor cultures. Continue to follow INR and Ammonia levels. Consider psych consult if hallucinations persist once ammonia levels stable. Labs ordered for further monitoring. Heparin IV Drip discontinued. Fever of unknown origin Blood cultures are negative TAO showed no vegetations Leukocytosis normalized Cleared for discharge by ID Considering doxycycline at discharge Hyperammonemia Hepatic encephalopathy Not yet controlled Protein restriction Continue lactulose Mental status is not back to baseline Continue monitoring ammonia levels Pacemaker site pain Ultrasound of pacemaker site showed no abscess Continue Percocet for pain Pacemaker was interrogated showed no abnormality Mechanical heart valve DVT prophylaxis Heparin bridging to Coumadin Continue Coumadin Follow INR INR goal 2.5 to 3.5 Discharge planning May discharge home when ammonia levels are improved and stabilized and patient is therapeutic on Coumadin, when INR greater than 2.5
[2017-10-04 04:54] LABS: Baso # (Auto) 0.2 th/mm3 (0.0-0.2); Baso % (Auto) 2.3 % (0.0-2.0); Eos # (Auto) 0.4 th/mm3 (0.0-0.4); Eos % (Auto) 5.8 % (0.0-4.0); Hematocrit 30.4 % (35.0-46.0); Hemoglobin 9.8 gm/dL (11.6-15.3); Lymph # (Auto) 2.1 th/mm3 (1.0-4.8); Lymph % (Auto) 28.6 % (9.0-44.0); Mean Corpuscular HGB Conc 32.3 % (32.0-36.0); Mean Corpuscular Hemoglobin 28.1 pg (27.0-34.0); Mean Corpuscular Volume 87.2 fL (80.0-100.0); Mean Platelet Volume 7.7 fL (7.0-11.0); Neut # (Auto) 3.6 th/mm3 (1.8-7.7); Neut % (Auto) 49.3 % (16.0-70.0); Platelet Count 531 th/mm3 (150-450); Red Blood Count 3.49 mil/mm3 (4.00-5.30); Red Cell Distribution Width 15.5 % (11.6-17.2); White Blood Count 7.2 th/mm3 (4.0-11.0)
[2017-10-04 05:01] LABS: Prothrombin Time 60.2 sec (9.8-11.6)
[2017-10-04 05:13] LABS: Albumin 3.2 g/dL (3.4-5.0); Anion Gap 8 meq/L (5-15); Aspartate Aminotransferase 19 U/L (15-37); Blood Urea Nitrogen 10 mg/dL (7-18); Calcium 8.6 mg/dL (8.5-10.1); Carbon Dioxide 20.4 meq/L (21.0-32.0); Chloride 111 meq/L (98-107); Glomerular Filtration Rate 72 mL/min (>89); Glucose,Random 86 mg/dL (74-106); Potassium 3.8 meq/L (3.5-5.1); Sodium 139 meq/L (136-145)
[2017-10-04 05:16] LABS: Alanine Aminotransferase 19 U/L (10-53); Alkaline Phosphatase 171 U/L (45-117)
[2017-10-04] MEDS: oxyCODONE HCL 20 MG Controlled Release Tablet PO SCH ×2 (08:01→21:26)
[2017-10-04] MEDS: LORazepam 1 MG Tablet PO SCH ×2 (08:01→21:27)
[2017-10-04] MEDS: FLUoxetine 20 MG Capsule PO SCH (08:02)
[2017-10-04] MEDS: Topiramate 25 MG Tablet PO SCH ×2 (08:02→21:25)
[2017-10-04] MEDS: levETIRAcetam 500 MG Tablet PO SCH ×2 (08:02→21:25)
--- NOTE | 2017-10-04 10:57 | P.PNIM ---
Subjective Interval history: Fever recurred 2 nights ago on 10/02 around midnight, was started on cefepime. Repeat chest x-ray is negative. Newly order blood cultures at that time now show fungemia - was started on Diflucan yesterday. Fever has not recurred since. Infectious disease has been re-consulted. Patient reports feeling subjective fevers and chills. Reports having nausea no vomiting. Says she has had diarrhea but she attributes this to lactulose. Physical Exam Vital signs: Vital Signs 10/03/17 12:00 10/03/17 16:00 10/03/17 20:00 Temperature 98.5 F 98.3 F Pulse Rate 63 56 L 74 Respiratory Rate 17 16 Blood Pressure 119/56 L 112/53 L Pulse Oximetry 100 100 10/03/17 21:56 10/03/17 23:31 10/04/17 00:00 Temperature 98.9 F Pulse Rate 77 Respiratory Rate 16 16 18 Blood Pressure 100/52 L Pulse Oximetry 99 10/04/17 04:00 10/04/17 08:00 Temperature 98.1 F 99.6 F Pulse Rate 64 75 Respiratory Rate 18 18 Blood Pressure 101/47 L 131/63 Pulse Oximetry 100 99 Intake & Output 10/03/17 10/04/17 10/04/17 18:59 06:59 18:59 Intake Total 300 / 300 100 / 100 100 / 100 Balance 300 / 300 100 / 100 100 / 100 Weight 68.4 kg Intake: IV 300 / 300 100 / 100 100 / 100 Maxipime Inj 2,000 MG In NS Inj 100 / 100 100 / 100 100 / 100 100 ML @ 200 mls/hr IV.SIG Q8H HENRI Rx#:[id number] Diflucan 400 mg Premix Bag 200 200 / 200 ML @ 100 mls/hr IV.SIG Q24H HENRI Rx#:[id number] Other: # Voids 4 Date of Last Bowel Movement 10/03/17 10/03/17 Narrative: 5/6 ejection murmur, heart sounds are regular rate rhythm otherwise Clear lungs bilaterally, unlabored breathing Results - Labs CBC & Chem 7: 10/04/17 04:35 10/04/17 04:35 Laboratory Results - last 24 hr 10/04/17 10/04/17 10/04/17 04:35 04:35 04:35 WBC 7.2 RBC 3.49 L Hgb 9.8 L Hct 30.4 L MCV 87.2 MCH 28.1 MCHC 32.3 RDW 15.5 Plt Count 531 H MPV 7.7 Neut % (Auto) 49.3 Lymph % (Auto) 28.6 [place] % (Auto) 14.0 H Eos % (Auto) 5.8 H Baso % (Auto) 2.3 H Neut # (Auto) 3.6 Lymph # (Auto) 2.1 [place] # (Auto) 1.0 H Eos # (Auto) 0.4 Baso # (Auto) 0.2 WBC Differential . Differential Comment Auto diff final PT 60.2 H D INR 6.0 H* Sodium 139 Potassium 3.8 Chloride 111 H Carbon Dioxide 20.4 L Anion Gap 8 BUN 10 Creatinine 0.93 Estimated GFR 72 L Random Glucose 86 Calcium 8.6 Total Bilirubin 0.5 AST 19 ALT 19 Alkaline Phosphatase 171 H Ammonia Total Protein 8.0 Albumin 3.2 L 10/04/17 04:35 WBC RBC Hgb Hct MCV MCH MCHC RDW Plt Count MPV Neut % (Auto) Lymph % (Auto) [place] % (Auto) Eos % (Auto) Baso % (Auto) Neut # (Auto) Lymph # (Auto) [place] # (Auto) Eos # (Auto) Baso # (Auto) WBC Differential Differential Comment PT INR Sodium Potassium Chloride Carbon Dioxide Anion Gap BUN Creatinine Estimated GFR Random Glucose Calcium Total Bilirubin AST ALT Alkaline Phosphatase Ammonia 62 H Total Protein Albumin Microbiology 10/02/17 01:20 Blood - Peripheral Aerobic Blood Culture - Preliminary Yeast - ID to follow 10/02/17 01:20 Blood - Peripheral Anaerobic Blood Culture - Preliminary No growth in 1 day 10/02/17 01:25 Blood - Peripheral Aerobic Blood Culture - Preliminary No growth in 1 day 10/02/17 01:25 Blood - Peripheral Anaerobic Blood Culture - Preliminary No growth in 1 day Assessment and Plan - Assessment (1) Fever of unknown origin Code(s): R50.9 - Fever, unspecified Status: Acute (2) H/O mitral valve replacement with mechanical valve Code(s): Z95.2 - Presence of prosthetic heart valve Status: Acute (3) History of tricuspid valve replacement with mechanical valve Code(s): Z95.2 - Presence of prosthetic heart valve Status: Acute - Plan 26-year-old female with history of IV drug use admitted for recurrent fever of unknown origin Diflucan started for fungemia. Monitor cultures. Continue to follow INR and Ammonia levels. Consider psych consult if hallucinations persist once ammonia levels stable. Labs ordered for further monitoring. Heparin IV Drip discontinued. Fever of unknown origin -Recurred 2 nights ago on 10/02 around midnight, was started on cefepime. Repeat chest x-ray is negative. Newly order blood cultures at that time now show fungemia - was started on Diflucan yesterday. Fever has not recurred. Infectious disease has been re-consulted. Blood cultures are negative TAO showed no vegetations Leukocytosis normalized Hyperammonemia Hepatic encephalopathy - clinically improved while still having hallucinations of which the patient is cognizant -Protein restriction -Continue lactulose -Continue monitoring ammonia levels Pacemaker site pain -Ultrasound of pacemaker site showed no abscess -Continue Percocet for pain -Pacemaker was interrogated showed no abnormality Mechanical heart valve DVT prophylaxis -Heparin bridging to Coumadin -Continue Coumadin -INR goal 2.5 to 3.5 Discharge Planning: Further recommendations pending from infectious disease. Clearance for discharge pending ID clearance with new onset fever/fungemia.
[2017-10-04] MEDS: Senna/Docusate Sodium 8.6/50 MG Tablet PO SCH ×2 (11:13→21:25)
[2017-10-05] MEDS: oxyCODONE HCL 20 MG Controlled Release Tablet PO SCH ×2 (08:56→20:33)
[2017-10-05] MEDS: FLUoxetine 20 MG Capsule PO SCH (08:56)
[2017-10-05] MEDS: levETIRAcetam 500 MG Tablet PO SCH ×2 (08:57→20:34)
[2017-10-05] MEDS: LORazepam 1 MG Tablet PO SCH ×2 (08:57→20:34)
[2017-10-05] MEDS: Topiramate 25 MG Tablet PO SCH ×2 (08:57→20:33)
[2017-10-05] MEDS: Senna/Docusate Sodium 8.6/50 MG Tablet PO SCH ×2 (08:58→20:34)
--- NOTE | 2017-10-05 16:24 | P.PNIM ---
Subjective Interval history: Nursing denies any deterioration since last night except for the patient wanting IV pain medication. Herself has no new complaints. Physical Exam Vital signs: Vital Signs 10/04/17 20:00 10/05/17 00:00 10/05/17 04:00 Temperature 98.1 F 98.5 F 98.3 F Pulse Rate 60 63 75 Respiratory Rate 18 20 18 Blood Pressure 149/58 H 167/75 H 142/69 H Pulse Oximetry 98 100 100 10/05/17 08:00 Temperature 98.6 F Pulse Rate 75 Respiratory Rate 16 Blood Pressure 114/53 L Pulse Oximetry 100 Intake & Output 10/04/17 10/05/17 10/05/17 18:59 06:59 18:59 Intake Total 1060 / 1060 1300 / 1300 100 / 100 Balance 1060 / 1060 1300 / 1300 100 / 100 Weight 69.2 kg Intake: IV 500 / 500 100 / 100 100 / 100 Maxipime Inj 2,000 MG In NS Inj 300 / 300 100 / 100 100 / 100 100 ML @ 200 mls/hr IV.SIG Q8H HENRI Rx#:[id number] Diflucan 400 mg Premix Bag 200 200 / 200 ML @ 100 mls/hr IV.SIG Q24H HENRI Rx#:[id number] Oral 560 / 560 1200 / 1200 Other: # Voids 6 10 Date of Last Bowel Movement 10/05/17 # Bowel Movements 1 10 Narrative: 06/29 ejection murmur Clear lungs bilaterally, unlabored breathing Results - Labs CBC & Chem 7: 10/04/17 04:35 10/04/17 04:35 Laboratory Results - last 24 hr 10/04/17 14:30 Stl C.difficile Tox PCR Negative St C. diff Tox Epid 027 Negative Microbiology 10/02/17 01:20 Blood - Peripheral Aerobic Blood Culture - Final [place] albicans 10/02/17 01:20 Blood - Peripheral Anaerobic Blood Culture - Preliminary No growth in 3 days 10/02/17 01:25 Blood - Peripheral Aerobic Blood Culture - Preliminary No growth in 3 days 10/02/17 01:25 Blood - Peripheral Anaerobic Blood Culture - Preliminary No growth in 3 days Assessment and Plan - Assessment (1) Fever of unknown origin Code(s): R50.9 - Fever, unspecified Status: Acute (2) H/O mitral valve replacement with mechanical valve Code(s): Z95.2 - Presence of prosthetic heart valve Status: Acute (3) History of tricuspid valve replacement with mechanical valve Code(s): Z95.2 - Presence of prosthetic heart valve Status: Acute - Plan 26-year-old female with history of IV drug use admitted for recurrent fever of unknown origin Diflucan started for fungemia. Monitor cultures. Continue to follow INR and Ammonia levels. Consider psych consult if hallucinations persist once ammonia levels stable. Labs ordered for further monitoring. Heparin IV Drip discontinued. Fever of unknown origin -Recurred 3 nights ago on 10/02 around midnight, was started on cefepime. Repeat chest x-ray is negative. Newly order blood cultures at that time now show fungemia - was started on Diflucan 2 days ago. Fever has not recurred. Infectious disease has been re-consulted. Blood cultures are negative TAO showed no vegetations Leukocytosis normalized Hyperammonemia Hepatic encephalopathy - clinically improved while still having hallucinations of which the patient is cognizant -Protein restriction -Continue lactulose -Continue monitoring ammonia levels Pacemaker site pain -Ultrasound of pacemaker site showed no abscess -Continue Percocet for pain -Pacemaker was interrogated showed no abnormality Mechanical heart valve DVT prophylaxis -supratherapeutic INR, holding coumadin, INR recheck -INR goal 2.5 to 3.5 Discharge Planning: Further recommendations pending from infectious disease. Clearance for discharge pending ID clearance with new onset fever/fungemia.
--- NOTE | 2017-10-05 19:16 | P.PNID ---
Subjective Remarks: fever 3 days ago Blood Clx + for C. albicans PICC was removed Apparently INR is now supratheraopeutic and pt has elevated ammonia level Antibiotics: Flucaonzol cefepime doxycyline Allergies/Adverse Reactions: Allergies codeine Allergy (Severe, Verified 09/14/17 21:46) HIVES/VOMITING Fish Containing Products Allergy (Severe, Verified 09/14/17 21:46) THROAT SWOLLEN/HIVES gabapentin Allergy (Severe, Verified 09/14/17 21:46) Hives morphine Allergy (Severe, Verified 09/14/17 21:46) Hives naproxen Allergy (Severe, Verified 09/14/17 21:46) Hives piperacillin Allergy (Severe, Verified 09/14/17 21:46) Hives tazobactam Allergy (Severe, Verified 07/24/17 01:33) Hives adhesive tape Allergy (Verified 09/14/17 21:44) Rash, Localized shellfish derived Allergy (Verified 09/14/17 21:46) Difficulty Breathing Objective Vital Signs 10/04/17 20:00 10/05/17 00:00 10/05/17 04:00 Temperature 98.1 F 98.5 F 98.3 F Pulse Rate 60 63 75 Respiratory Rate 18 20 18 Blood Pressure 149/58 H 167/75 H 142/69 H Pulse Oximetry 98 100 100 10/05/17 08:00 10/05/17 12:00 10/05/17 16:00 Temperature 98.6 F 98.3 F 98.1 F Pulse Rate 75 60 62 Respiratory Rate 16 18 18 Blood Pressure 114/53 L 117/58 L 116/58 L Pulse Oximetry 100 100 100 Intake & Output 10/05/17 10/05/17 10/06/17 06:59 18:59 06:59 Intake Total 1300 / 1300 100 / 100 Balance 1300 / 1300 100 / 100 Weight 69.2 kg Intake: IV 100 / 100 100 / 100 Maxipime Inj 2,000 MG In NS Inj 100 / 100 100 / 100 100 ML @ 200 mls/hr IV.SIG Q8H [facility] Rx#:[id number] Oral 1200 / 1200 Other: # Voids 10 Date of Last Bowel Movement 10/05/17 10/05/17 # Bowel Movements 10 10/05/17 18:25 Blood - Peripheral Aerobic Blood Culture - Pending 10/05/17 18:25 Blood - Peripheral Anaerobic Blood Culture - Pending 10/05/17 18:20 Blood - Peripheral Aerobic Blood Culture - Pending 10/05/17 18:20 Blood - Peripheral Anaerobic Blood Culture - Pending 10/02/17 01:20 Blood - Peripheral Aerobic Blood Culture - Final Sayda albicans 10/02/17 01:20 Blood - Peripheral Anaerobic Blood Culture - Preliminary No growth in 3 days 10/02/17 01:25 Blood - Peripheral Aerobic Blood Culture - Preliminary No growth in 3 days 10/02/17 01:25 Blood - Peripheral Anaerobic Blood Culture - Preliminary No growth in 3 days Lab - Hematology Results 10/04/17 04:35 WBC 7.2 RBC 3.49 L Hgb 9.8 L Hct 30.4 L MCV 87.2 MCH 28.1 MCHC 32.3 RDW 15.5 Plt Count 531 H MPV 7.7 Neut % (Auto) 49.3 Lymph % (Auto) 28.6 [facility] [facility] % (Auto) 14.0 H Eos % (Auto) 5.8 H Baso % (Auto) 2.3 H Neut # (Auto) 3.6 Lymph # (Auto) 2.1 [facility] # (Auto) 1.0 H Eos # (Auto) 0.4 Baso # (Auto) 0.2 WBC Differential . Differential Comment Auto diff final Lab - Chemistry Results 10/04/17 10/04/17 04:35 04:35 Sodium 139 Potassium 3.8 Chloride 111 H Carbon Dioxide 20.4 L Anion Gap 8 BUN 10 Creatinine 0.93 Estimated GFR 72 L Random Glucose 86 Calcium 8.6 Total Bilirubin 0.5 AST 19 ALT 19 Alkaline Phosphatase 171 H Ammonia 62 H Total Protein 8.0 Albumin 3.2 L Imaging: ITS Impressions Soft Tissue Ultrasound 09/15/17 00:00 CONCLUSION: 1. Negative for abscess or fluid collection. Abdomen X-Ray 09/16/17 00:00 CONCLUSION: Nonspecific KUB. Chest X-Ray 10/02/17 00:45 CONCLUSION: Clear lungs. Physical Exam: GENERAL: NAD SKIN: Warm and dry. CARDIOVASCULAR: Regular rate and rhythm. Pacemaker in place no swelling around it, no fluctuance and tenderness to palpation no redness RESPIRATORY: No accessory muscle use. Clear to auscultation. Breath sounds equal bilaterally. GASTROINTESTINAL: Abdomen soft, non-tender, moderately distended ? ascites Hepatic and splenic margins not palpable. MUSCULOSKELETAL: Extremities without clubbing, cyanosis, or edema. No obvious deformities. NEUROLOGICAL: Awake and alert. No obvious cranial nerve deficits. Motor grossly within normal limits. Five out of 5 muscle strength in the arms and legs. Normal speech. PSYCHIATRIC: Appropriate mood and affect; insight and judgment normal. Assessment and Plan - Plan Recurretn SBE, including PVE sp Mitral and tricuspid valves replacements sp pacemaker, co pain in the area, but no fluid colection Fever resolved with empiric abx, all clx are negative TEnderness and swelling of pacemeaker pocket, r/o infeciton New fungemia, C. albicans dc cefepime, docxycyline Fluconazole 400 IV 2 D echo
[2017-10-06 06:51] LABS: INR 3.2 Ratio; Prothrombin Time 32.2 sec (9.8-11.6)
[2017-10-06] MEDS: levETIRAcetam 500 MG Tablet PO SCH ×2 (09:24→21:00)
[2017-10-06] MEDS: LORazepam 1 MG Tablet PO SCH ×2 (09:24→20:59)
[2017-10-06] MEDS: FLUoxetine 20 MG Capsule PO SCH (09:24)
[2017-10-06] MEDS: Topiramate 25 MG Tablet PO SCH ×2 (09:25→20:59)
[2017-10-06] MEDS: oxyCODONE HCL 20 MG Controlled Release Tablet PO SCH (09:26)
[2017-10-06] MEDS: Senna/Docusate Sodium 8.6/50 MG Tablet PO SCH ×2 (09:28→20:59)
--- NOTE | 2017-10-06 11:26 | P.PNIM ---
Subjective Interval history: Nursing denies any deterioration since last night. Patient herself is very receptive to hearing my conversation on the importance of weaning her opiates while inpatient and also weaning herself of opiates while outpatient. Has no new complaints. Infectious disease reevaluated the patient yesterday, recommended a 2D echo. Patient has agreed for me to stop her OxyContin Physical Exam Vital signs: Vital Signs 10/05/17 12:00 10/05/17 16:00 10/05/17 20:00 Temperature 98.3 F 98.1 F 97.8 F Pulse Rate 60 62 60 Respiratory Rate 18 18 18 Blood Pressure 117/58 L 116/58 L 117/57 L Pulse Oximetry 100 100 98 10/06/17 00:00 10/06/17 04:00 10/06/17 08:00 Temperature 97.8 F 97.8 F 97.7 F Pulse Rate 61 61 69 Respiratory Rate 18 18 20 Blood Pressure 116/61 119/60 116/53 L Pulse Oximetry 100 99 Intake & Output 10/05/17 10/06/17 10/06/17 18:59 06:59 18:59 Intake Total 300 / 300 100 / 100 Balance 300 / 300 100 / 100 Weight 70.3 kg Intake: IV 300 / 300 100 / 100 Maxipime Inj 2,000 MG In NS Inj 100 / 100 100 / 100 100 ML @ 200 mls/hr IV.SIG Q8H [facility] Rx#:[id number] Diflucan 400 mg Premix Bag 200 200 / 200 ML @ 100 mls/hr IV.SIG Q24H [facility] Rx#:[id number] Other: Date of Last Bowel Movement 10/05/17 10/05/17 Narrative: 5/6 ejection murmur Heart sounds regular rate rhythm, unlabored breathing Lying in bed, awake and alert Results - Labs CBC & Chem 7: 10/04/17 04:35 10/04/17 04:35 Laboratory Results - last 24 hr 10/06/17 05:10 PT 32.2 H D INR 3.2 Microbiology 10/05/17 18:25 Blood - Peripheral Aerobic Blood Culture - Preliminary No growth in 1 day 10/05/17 18:25 Blood - Peripheral Anaerobic Blood Culture - Preliminary No growth in 1 day 10/05/17 18:20 Blood - Peripheral Aerobic Blood Culture - Preliminary No growth in 1 day 10/05/17 18:20 Blood - Peripheral Anaerobic Blood Culture - Preliminary No growth in 1 day 10/02/17 01:20 Blood - Peripheral Aerobic Blood Culture - Final Sayda albicans 10/02/17 01:20 Blood - Peripheral Anaerobic Blood Culture - Preliminary No growth in 4 days 10/02/17 01:25 Blood - Peripheral Aerobic Blood Culture - Preliminary No growth in 4 days 10/02/17 01:25 Blood - Peripheral Anaerobic Blood Culture - Preliminary No growth in 4 days Assessment and Plan - Assessment (1) Fever of unknown origin Code(s): R50.9 - Fever, unspecified Status: Acute (2) H/O mitral valve replacement with mechanical valve Code(s): Z95.2 - Presence of prosthetic heart valve Status: Acute (3) History of tricuspid valve replacement with mechanical valve Code(s): Z95.2 - Presence of prosthetic heart valve Status: Acute - Plan 26-year-old female with history of IV drug use admitted for recurrent fever of unknown origin Diflucan started for fungemia. Monitor cultures. Continue to follow INR and Ammonia levels. Consider psych consult if hallucinations persist once ammonia levels stable. Labs ordered for further monitoring. Heparin IV Drip discontinued. Fever of unknown origin -No recurrence. Repeat blood cultures should be coming back today. Diarrhea likely 2/2 lactulose, neg for c. diff. Fungemia -On Diflucan, infectious disease following. 2D echo pending. Prior echo showed no vegetations. Repeat blood cultures should be coming back today at 48 hours. Hyperammonemia Hepatic encephalopathy - clinically improved while still having hallucinations of which the patient is cognizant -Protein restriction -Continue lactulose -Continue monitoring ammonia levels Pacemaker site pain -Ultrasound of pacemaker site showed no abscess -Continue Percocet for pain -Pacemaker was interrogated showed no abnormality Mechanical heart valve DVT prophylaxis -INR within normal limits today, restart coumadin -INR goal 2.5 to 3.5 Discharge Planning: Further recommendations pending from infectious disease. Clearance for discharge pending ID clearance with new onset fever/fungemia.
[2017-10-07] MEDS: LORazepam 1 MG Tablet PO SCH ×2 (09:02→20:47)
[2017-10-07] MEDS: FLUoxetine 20 MG Capsule PO SCH (09:03)
[2017-10-07] MEDS: Topiramate 25 MG Tablet PO SCH ×2 (09:03→20:46)
[2017-10-07] MEDS: levETIRAcetam 500 MG Tablet PO SCH ×2 (09:03→20:46)
[2017-10-07] MEDS: Senna/Docusate Sodium 8.6/50 MG Tablet PO SCH ×2 (09:04→20:47)
--- NOTE | 2017-10-07 15:22 | P.PNIM ---
Subjective Interval history: Nursing denies any deterioration since last night. Patient denies any fevers, reports chills. Physical Exam Vital signs: Vital Signs 10/06/17 16:00 10/06/17 19:15 10/06/17 20:00 Temperature 98.3 F 97.9 F Pulse Rate 64 60 Respiratory Rate 20 16 18 Blood Pressure 115/56 L 92/54 L Pulse Oximetry 99 100 10/07/17 00:00 10/07/17 03:40 10/07/17 04:00 Temperature 99.3 F 98.6 F Pulse Rate 67 68 65 Respiratory Rate 18 18 Blood Pressure 122/65 134/65 Pulse Oximetry 100 100 10/07/17 08:00 10/07/17 08:29 10/07/17 12:00 Temperature 98.4 F 97.8 F Pulse Rate 46 L 76 67 Respiratory Rate 16 16 Blood Pressure 140/60 125/62 Pulse Oximetry 99 100 Intake & Output 10/06/17 10/07/17 10/07/17 18:59 06:59 18:59 Intake Total 200 / 200 Balance 200 / 200 Weight 70.3 kg Intake: IV 200 / 200 Diflucan 400 mg Premix Bag 200 200 / 200 ML @ 100 mls/hr IV.SIG Q24H [facility] Rx#:[id number] Other: Date of Last Bowel Movement 10/06/17 Narrative: Unchanged 5/6 ejection murmur Regular rate rhythm, Unlabored breathing, clear lungs bilaterally Results - Labs CBC & Chem 7: 10/04/17 04:35 10/04/17 04:35 Microbiology 10/05/17 18:25 Blood - Peripheral Aerobic Blood Culture - Preliminary No growth in 2 days 10/05/17 18:25 Blood - Peripheral Anaerobic Blood Culture - Preliminary No growth in 2 days 10/05/17 18:20 Blood - Peripheral Aerobic Blood Culture - Preliminary No growth in 2 days 10/05/17 18:20 Blood - Peripheral Anaerobic Blood Culture - Preliminary No growth in 2 days 10/02/17 01:20 Blood - Peripheral Aerobic Blood Culture - Final Sayda albicans 10/02/17 01:20 Blood - Peripheral Anaerobic Blood Culture - Final No growth in 5 days 10/02/17 01:25 Blood - Peripheral Aerobic Blood Culture - Final No growth in 5 days 10/02/17 01:25 Blood - Peripheral Anaerobic Blood Culture - Final No growth in 5 days Assessment and Plan - Assessment (1) Fever of unknown origin Code(s): R50.9 - Fever, unspecified Status: Acute (2) H/O mitral valve replacement with mechanical valve Code(s): Z95.2 - Presence of prosthetic heart valve Status: Acute (3) History of tricuspid valve replacement with mechanical valve Code(s): Z95.2 - Presence of prosthetic heart valve Status: Acute - Plan 26-year-old female with history of IV drug use admitted for recurrent fever of unknown origin Diflucan started for fungemia. Monitor cultures. Continue to follow INR and Ammonia levels. Consider psych consult if hallucinations persist once ammonia levels stable. Labs ordered for further monitoring. Heparin IV Drip discontinued. Fever of unknown origin -No recurrence. Repeat blood cultures should be coming back today. Diarrhea likely 2/2 lactulose, neg for c. diff. Fungemia -On Diflucan, infectious disease following. 2D echo still pending. Prior echo showed no vegetations. Per ID recommendations will wait for repeat blood cultures to come back negative by tomorrow at 72 hours Hyperammonemia Hepatic encephalopathy - clinically improved while still having hallucinations of which the patient is cognizant -Protein restriction -Continue lactulose -Continue monitoring ammonia levels Pacemaker site pain -Ultrasound of pacemaker site showed no abscess -Continue Percocet for pain -Pacemaker was interrogated showed no abnormality Mechanical heart valve DVT prophylaxis -INR within normal limits today, restart coumadin -INR goal 2.5 to 3.5 Discharge Planning: Further recommendations pending from infectious disease. Clearance for discharge pending ID clearance with new onset fever/fungemia.
[2017-10-07] MEDS: traZODone 100 MG Tablet PO PRN (23:18)
[2017-10-08] MEDS: Topiramate 25 MG Tablet PO SCH ×2 (10:25→21:07)
[2017-10-08] MEDS: Senna/Docusate Sodium 8.6/50 MG Tablet PO SCH ×2 (10:26→21:07)
[2017-10-08] MEDS: levETIRAcetam 500 MG Tablet PO SCH ×2 (10:26→21:07)
[2017-10-08] MEDS: FLUoxetine 20 MG Capsule PO SCH (10:26)
[2017-10-08] MEDS: LORazepam 1 MG Tablet PO SCH ×2 (10:26→21:07)
--- NOTE | 2017-10-08 17:45 | ECHRPT ---
Indication: SEPSIS POSS.ENDOCARDITIS CONCLUSIONS The left ventricular systolic function is mildly reduced with an estimated ejection fraction in the range of 45- 50%. Normal left ventricular size. Wall thickness is normal. No regional wall motion abnormalities are present. Normally functioning mechanical mitral valve prosthesis. There is no evidence of mass/vegetation on the tricuspid valve prosthesis. BP: / HR: Rhythm: Sinus MEASUREMENTS (Male / Female) Normal Values Technical Quality:Fair 2D ECHO LV Diastolic Diameter PLAX 5.0 cm 4.2 - 5.9 / 3.9 - 5.3 cm LV Systolic Diameter PLAX 3.6 cm IVS Diastolic Thickness 1.0 cm 0.6 - 1.0 / 0.6 - 0.9 cm LVPW Diastolic Thickness 1.0 cm 0.6 - 1.0 / 0.6 - 0.9 cm LV Relative Wall Thickness 0.4 RV Internal Dim ED PLAX 3.0 cm LVOT Diameter 1.8 cm Aortic Root Diameter 2.7 cm LA Systolic Diameter LX 3.3 cm 3.0 - 4.0 / 2.7 - 3.8 cm DOPPLER AV Peak Velocity 187.0 cm/s AV Peak Gradient 14.0 mmHg LVOT Peak Velocity 160.0 cm/s LVOT Peak Gradient 10.2 mmHg AV Area Cont Eq pk 2.2 cm MV Peak Velocity 254.0 cm/s MV Peak Gradient 25.8 mmHg MV Mean Velocity 81.4 cm/s MV Mean Gradient 4.0 mmHg MV Area PHT 3.3 cm LV E' Lateral Velocity 4.7 cm/s LV E' Septal Velocity 4.4 cm/s PV Peak Velocity 124.0 cm/s PV Peak Gradient 6.2 mmHg FINDINGS LEFT VENTRICLE The left ventricular systolic function is mildly reduced with an estimated ejection fraction in the range of 45- 50%. Normal left ventricular size. Wall thickness is normal. No regional wall motion abnormalities are present. MITRAL VALVE Normally functioning mechanical mitral valve prosthesis. TRICUSPID VALVE There is no evidence of mass/vegetation on the tricuspid valve prosthesis. PULMONARY VALVE Trivial pulmonary valve regurgitation. Mae Madera MD, FACC (Electronically Signed) Final Date:08 October 2017 17:44
--- NOTE | 2017-10-08 20:03 | P.PNIM ---
Subjective Interval history: Nursing denies any deterioration since last night. Patient herself has no new complaints. She does mention having visual hallucinations but denies that they are suicidal by any nature. She is overall very cognizant of these hallucinations and for the most part they are not real. Physical Exam Vital signs: Vital Signs 10/07/17 23:50 10/08/17 00:00 10/08/17 04:00 Temperature 97.8 F 97.7 F Pulse Rate 65 61 62 Respiratory Rate 17 17 Blood Pressure 98/62 L 98/56 L Pulse Oximetry 99 100 10/08/17 08:00 10/08/17 12:00 10/08/17 16:00 Temperature 98.3 F 98.6 F 98.1 F Pulse Rate 58 L 63 60 Respiratory Rate 16 18 16 Blood Pressure 112/56 L 133/67 137/61 Pulse Oximetry 100 99 96 10/08/17 17:30 Temperature Pulse Rate Respiratory Rate Blood Pressure Pulse Oximetry 96 Intake & Output 10/08/17 10/08/17 10/09/17 06:59 18:59 06:59 Intake Total 960 / 960 Output Total 800 / 800 Balance 160 / 160 Weight 70 kg Intake: Oral 960 / 960 Output: Urine 800 / 800 Other: Date of Last Bowel Movement 10/07/17 # Bowel Movements 1 Narrative: 5/6 ejection murmur Heart sounds regular rate rhythm Lungs are clear bilaterally, unlabored breathing Results - Labs CBC & Chem 7: 10/04/17 04:35 10/04/17 04:35 Microbiology 10/05/17 18:25 Blood - Peripheral Aerobic Blood Culture - Preliminary No growth in 3 days 10/05/17 18:25 Blood - Peripheral Anaerobic Blood Culture - Preliminary No growth in 3 days 10/05/17 18:20 Blood - Peripheral Aerobic Blood Culture - Preliminary No growth in 3 days 10/05/17 18:20 Blood - Peripheral Anaerobic Blood Culture - Preliminary No growth in 3 days Assessment and Plan - Assessment (1) Fever of unknown origin Code(s): R50.9 - Fever, unspecified Status: Acute (2) H/O mitral valve replacement with mechanical valve Code(s): Z95.2 - Presence of prosthetic heart valve Status: Acute (3) History of tricuspid valve replacement with mechanical valve Code(s): Z95.2 - Presence of prosthetic heart valve Status: Acute - Plan 26-year-old female with history of IV drug use admitted for recurrent fever of unknown origin Fungemia -On po Diflucan, duration 2 weeks. cleared on repeat bc's per IDs recs at 72 hrs. Echocardiogram is negative. supra-therapeutic INR for mech. heart valve - vitamin K ordered, recheck INR in AM, coumadin held; RESTART HEPARIN IF SUBTHERAPEUTIC on AM recheck - goal is 2.5 to 3.5. very variable now that pt is on diflucan Hyperammonemia - stable clinically daily lactulose mild Hepatic encephalopathy - clinically improved while still having hallucinations of which the patient is cognizant may consider antipsychotic Pacemaker site pain -Ultrasound of pacemaker site showed no abscess -Continue Percocet for pain -Pacemaker was interrogated showed no abnormality Discharge Planning: dc when INR is stable. Pt has understood she will be partially weaned on opiates while inpt since no MD on the outpt basis is likely to prescribe her dilaudid continuously .
[2017-10-08 21:53] LABS: INR 10.8 Ratio
[2017-10-08] MEDS ORDERED: Phytonadione Inj 10 MG/ML Vial SQ ONE (22:06)
[2017-10-09 00:02] LABS: Prothrombin Time 106.7 sec (9.8-11.6)
[2017-10-09 00:18] LABS: INR 10.7 Ratio
[2017-10-09] MEDS: FLUoxetine 20 MG Capsule PO SCH (08:57)
[2017-10-09] MEDS: levETIRAcetam 500 MG Tablet PO SCH ×2 (08:58→21:42)
[2017-10-09] MEDS: Topiramate 25 MG Tablet PO SCH ×2 (08:58→21:42)
[2017-10-09] MEDS: Senna/Docusate Sodium 8.6/50 MG Tablet PO SCH ×2 (08:58→21:43)
[2017-10-09] MEDS: LORazepam 1 MG Tablet PO SCH ×2 (08:58→21:42)
[2017-10-09 09:11] LABS: Prothrombin Time 89.4 sec (9.8-11.6)
[2017-10-09] MEDS ORDERED: Phytonadione 5 MG/SWFI 5 ML Oral Syringe PO ONE (13:59)
--- NOTE | 2017-10-09 14:10 | P.PN ---
Subjective Interval history: Follow-up fungemia/ supra therapeutic INR October 09, 2017-patient seen and examined, INR still elevated despite vitamin K. Alert and oriented 2. Mom by the bedside. Physical Exam Vital signs: Vital Signs 10/08/17 16:00 10/08/17 17:30 10/08/17 20:00 Temperature 98.1 F 99.0 F Pulse Rate 60 69 Respiratory Rate 16 18 Blood Pressure 137/61 149/72 H Pulse Oximetry 96 96 10/08/17 20:08 10/08/17 23:56 10/09/17 03:55 Temperature Pulse Rate 63 48 L 63 Respiratory Rate Blood Pressure Pulse Oximetry 10/09/17 04:00 10/09/17 08:00 10/09/17 12:00 Temperature 97.8 F 97.6 F 97.4 F L Pulse Rate 81 61 69 Respiratory Rate 18 18 16 Blood Pressure 152/81 H 122/60 106/55 L Pulse Oximetry 100 99 98 Intake & Output 10/08/17 10/09/17 10/09/17 18:59 06:59 18:59 Intake Total 1160 / 1160 Output Total 800 / 800 Balance 360 / 360 Weight 66.5 kg Intake: IV 200 / 200 Diflucan 400 mg Premix Bag 200 200 / 200 ML @ 100 mls/hr IV.SIG Q24H [facility] Rx#:[id number] Oral 960 / 960 Output: Urine 800 / 800 Other: Date of Last Bowel Movement 10/08/17 # Bowel Movements 1 Narrative: GENERAL: NAD SKIN: Warm and dry. HEAD: Normocephalic. EYES: No scleral icterus. No injection or drainage. NECK: Supple, trachea midline. No JVD or lymphadenopathy. CARDIOVASCULAR: Regular rate and rhythm with 5/6 murmurs RESPIRATORY: Breath sounds equal bilaterally. No accessory muscle use. GASTROINTESTINAL: Abdomen soft, non-tender, nondistended. MUSCULOSKELETAL: No cyanosis, or edema. BACK: Nontender without obvious deformity. No CVA tenderness. Results - Labs CBC & Chem 7: 10/04/17 04:35 10/04/17 04:35 Laboratory Results - last 24 hr 10/08/17 10/08/17 10/09/17 20:45 23:19 08:40 PT 108.0 H D 106.7 H 89.4 H D INR 10.8 H* 10.7 H* 9.0 H* Microbiology 10/05/17 18:25 Blood - Peripheral Aerobic Blood Culture - Preliminary No growth in 4 days 10/05/17 18:25 Blood - Peripheral Anaerobic Blood Culture - Preliminary No growth in 4 days 10/05/17 18:20 Blood - Peripheral Aerobic Blood Culture - Preliminary No growth in 4 days 10/05/17 18:20 Blood - Peripheral Anaerobic Blood Culture - Preliminary No growth in 4 days Assessment and Plan - Assessment (1) Fever of unknown origin Code(s): R50.9 - Fever, unspecified Status: Acute (2) H/O mitral valve replacement with mechanical valve Code(s): Z95.2 - Presence of prosthetic heart valve Status: Acute (3) History of tricuspid valve replacement with mechanical valve Code(s): Z95.2 - Presence of prosthetic heart valve Status: Acute - Plan 26-year-old female with Fungemia Continue with po Diflucan, duration 2 weeks. Echocardiogram is negative. supra-therapeutic INR for mech. heart valve Will give vitamin K 5 mg p.o. 1 now today and consider FFP Continue to hold Coumadin - INR goal is 2.5 to 3.5. Hyperammonemia - stable clinically Check ammonia level and continue daily lactulose Mild Hepatic encephalopathy - Resolving Pacemaker site pain -Ultrasound of pacemaker site showed no abscess -Continue Percocet for pain -Pacemaker was interrogated showed no abnormality
--- NOTE | 2017-10-09 14:35 | P.PNID ---
Subjective Remarks: no fever 3 Blood Clx + for C. albicans records reviewed : pt had no central lines during this hospitalisation, just periferal in BUL Antibiotics: Flucaonzol Allergies/Adverse Reactions: Allergies codeine Allergy (Severe, Verified 09/14/17 21:46) HIVES/VOMITING Fish Containing Products Allergy (Severe, Verified 09/14/17 21:46) THROAT SWOLLEN/HIVES gabapentin Allergy (Severe, Verified 09/14/17 21:46) Hives morphine Allergy (Severe, Verified 09/14/17 21:46) Hives naproxen Allergy (Severe, Verified 09/14/17 21:46) Hives piperacillin Allergy (Severe, Verified 09/14/17 21:46) Hives tazobactam Allergy (Severe, Verified 07/24/17 01:33) Hives adhesive tape Allergy (Verified 09/14/17 21:44) Rash, Localized shellfish derived Allergy (Verified 09/14/17 21:46) Difficulty Breathing Objective Vital Signs 10/08/17 16:00 10/08/17 17:30 10/08/17 20:00 Temperature 98.1 F 99.0 F Pulse Rate 60 69 Respiratory Rate 16 18 Blood Pressure 137/61 149/72 H Pulse Oximetry 96 96 10/08/17 20:08 10/08/17 23:56 10/09/17 03:55 Temperature Pulse Rate 63 48 L 63 Respiratory Rate Blood Pressure Pulse Oximetry 10/09/17 04:00 10/09/17 08:00 10/09/17 12:00 Temperature 97.8 F 97.6 F 97.4 F L Pulse Rate 81 61 60 Respiratory Rate 18 18 16 Blood Pressure 152/81 H 122/60 106/55 L Pulse Oximetry 100 99 98 Intake & Output 10/08/17 10/09/17 10/09/17 18:59 06:59 18:59 Intake Total 1160 / 1160 Output Total 800 / 800 Balance 360 / 360 Weight 66.5 kg Intake: IV 200 / 200 Diflucan 400 mg Premix Bag 200 200 / 200 ML @ 100 mls/hr IV.SIG Q24H [facility] Rx#:[id number] Oral 960 / 960 Output: Urine 800 / 800 Other: Date of Last Bowel Movement 10/08/17 # Bowel Movements 1 10/05/17 18:25 Blood - Peripheral Aerobic Blood Culture - Preliminary No growth in 4 days 10/05/17 18:25 Blood - Peripheral Anaerobic Blood Culture - Preliminary No growth in 4 days 10/05/17 18:20 Blood - Peripheral Aerobic Blood Culture - Preliminary No growth in 4 days 10/05/17 18:20 Blood - Peripheral Anaerobic Blood Culture - Preliminary No growth in 4 days 10/02/17 01:20 Blood - Peripheral Aerobic Blood Culture - Final Sayda albicans 10/02/17 01:20 Blood - Peripheral Anaerobic Blood Culture - Final No growth in 5 days 10/02/17 01:25 Blood - Peripheral Aerobic Blood Culture - Final No growth in 5 days 10/02/17 01:25 Blood - Peripheral Anaerobic Blood Culture - Final No growth in 5 days Imaging: ITS Impressions Soft Tissue Ultrasound 09/15/17 00:00 CONCLUSION: 1. Negative for abscess or fluid collection. Abdomen X-Ray 09/16/17 00:00 CONCLUSION: Nonspecific KUB. Chest X-Ray 10/02/17 00:45 CONCLUSION: Clear lungs. Physical Exam: GENERAL: NAD SKIN: Warm and dry. CARDIOVASCULAR: Regular rate and rhythm. Pacemaker in place no swelling around it, no fluctuance and tenderness to palpation no redness RESPIRATORY: No accessory muscle use. Clear to auscultation. Breath sounds equal bilaterally. GASTROINTESTINAL: Abdomen soft, non-tender, moderately distended ? ascites Hepatic and splenic margins not palpable. MUSCULOSKELETAL: Extremities without clubbing, cyanosis, or edema. No obvious deformities. NEUROLOGICAL: Awake and alert. No obvious cranial nerve deficits. Motor grossly within normal limits. Five out of 5 muscle strength in the arms and legs. Normal speech. PSYCHIATRIC: Appropriate mood and affect; insight and judgment normal. 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 Pacer lead endocarditis TAO negative TEnderness and swelling of pacemeaker pocket, r/o infeciton New fungemia, C. albicans: 2 D echo negative ? pacer lead infx Fluconazole 400 IV BUE US Ophthalmology consult If another C.albicans fungemia consider pacer lead infection
--- NOTE | 2017-10-09 16:54 | US ---
EXAM DATE: 10/09/2017 4:49 PM EDT AGE/SEX: 26 years / Female INDICATIONS: Fungemia. CLINICAL DATA: This is the patient's initial encounter. Patient reports that signs and symptoms have been present for 1 day and indicates a pain score of 5/10. MEDICAL/SURGICAL HISTORY: Seizures. Subacute bacterial endocarditis. Cerebral vascular accident . IV drug use. . Mitral valve replacement with mechanical valve. 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 COMPARISON: No prior exams available for comparison. FINDINGS: Right Upper Extremity: No evidence of deep venous thrombosis. Superficial thrombus present in portio ns of the right cephalic and antecubital veins Left Upper Extremity: No evidence of deep venous thrombosis. Superficial thrombus present in portion s of the basilic vein. Other: None. CONCLUSION: 1. Bilateral upper extremity superficial thrombophlebitis. 2. No evidence of DVT Electronically signed by: Alex Lanier MD 10/09/2017 4:52 PM EDT
[2017-10-10 07:02] LABS: INR 3.4 Ratio; Prothrombin Time 34.2 sec (9.8-11.6)
[2017-10-10] MEDS: FLUoxetine 20 MG Capsule PO SCH (08:08)
[2017-10-10] MEDS: levETIRAcetam 500 MG Tablet PO SCH ×2 (08:08→22:43)
[2017-10-10] MEDS: Topiramate 25 MG Tablet PO SCH ×2 (08:08→22:43)
[2017-10-10] MEDS: LORazepam 1 MG Tablet PO SCH ×2 (08:08→22:44)
[2017-10-10] MEDS: Senna/Docusate Sodium 8.6/50 MG Tablet PO SCH ×2 (08:08→22:43)
--- NOTE | 2017-10-10 11:37 | P.PN ---
Subjective Interval history: Follow-up fungemia/ supra therapeutic INR October 09, 2017-patient seen and examined, INR still elevated despite vitamin K. Alert and oriented 2. Mom by the bedside. October 10, 2017-patient seen and examined, states she feels better today continuing to complain of bilateral upper extremity pain. Afebrile. INR down to 3.4 Physical Exam Vital signs: Vital Signs 10/09/17 12:00 10/09/17 16:00 10/09/17 19:53 Temperature 97.4 F L 97.3 F L Pulse Rate 60 16 L 62 Respiratory Rate 16 16 Blood Pressure 106/55 L 133/53 L Pulse Oximetry 98 100 10/09/17 20:00 10/09/17 23:49 10/10/17 00:00 Temperature 98.2 F 98.2 F Pulse Rate 60 62 63 Respiratory Rate 18 16 Blood Pressure 122/60 126/64 Pulse Oximetry 100 100 10/10/17 04:00 10/10/17 04:01 10/10/17 08:00 Temperature 97.3 F L 97.9 F Pulse Rate 62 61 60 Respiratory Rate 16 18 Blood Pressure 120/57 L 126/50 L Pulse Oximetry 100 100 Intake & Output 10/09/17 10/10/17 10/10/17 18:59 06:59 18:59 Intake Total 1160 / 1160 Output Total 600 / 600 Balance 560 / 560 Weight 66.7 kg Intake: IV 200 / 200 Diflucan 400 mg Premix Bag 200 200 / 200 ML @ 100 mls/hr IV.SIG Q24H [facility] Rx#:[id number] Oral 960 / 960 Output: Urine 600 / 600 Other: # Bowel Movements 2 Narrative: GENERAL: NAD SKIN: Warm and dry. HEAD: Normocephalic. EYES: No scleral icterus. No injection or drainage. NECK: Supple, trachea midline. No JVD or lymphadenopathy. CARDIOVASCULAR: Regular rate and rhythm with 5/6 murmurs RESPIRATORY: Breath sounds equal bilaterally. No accessory muscle use. GASTROINTESTINAL: Abdomen soft, non-tender, nondistended. MUSCULOSKELETAL: No cyanosis, or edema. BACK: Nontender without obvious deformity. No CVA tenderness. Results - Labs CBC & Chem 7: 10/04/17 04:35 10/04/17 04:35 Laboratory Results - last 24 hr 10/10/17 10/10/17 06:39 06:39 PT 34.2 H D INR 3.4 Ammonia 61 H Microbiology 10/05/17 18:25 Blood - Peripheral Aerobic Blood Culture - Final No growth in 5 days 10/05/17 18:25 Blood - Peripheral Anaerobic Blood Culture - Final No growth in 5 days 10/05/17 18:20 Blood - Peripheral Aerobic Blood Culture - Final No growth in 5 days 10/05/17 18:20 Blood - Peripheral Anaerobic Blood Culture - Final No growth in 5 days - Imaging Impressions Venous Doppler Study 10/09/17 00:00 CONCLUSION: 1. Bilateral upper extremity superficial thrombophlebitis. 2. No evidence of DVT Assessment and Plan - Assessment (1) Fever of unknown origin Code(s): R50.9 - Fever, unspecified Status: Acute (2) H/O mitral valve replacement with mechanical valve Code(s): Z95.2 - Presence of prosthetic heart valve Status: Acute (3) History of tricuspid valve replacement with mechanical valve Code(s): Z95.2 - Presence of prosthetic heart valve Status: Acute - Plan 26-year-old female with Fungemia Continue with IV Diflucan, duration 2 weeks. Echocardiogram is negative. ID following Ophthalmology consultation pending supra-therapeutic INR for mech. heart valve INR down to 3.4 Continue to hold Coumadin - INR goal is 2.5 to 3.5. Hyperammonemia - stable clinically Monitor ammonia level and continue daily lactulose Mild Hepatic encephalopathy - Resolving Bilateral upper extremity superficial thrombophlebitis d/t supra therapeutic INR, VTE treatment on hold Pacemaker site pain -Ultrasound of pacemaker site showed no abscess -Continue Percocet for pain -Pacemaker was interrogated showed no abnormality
--- NOTE | 2017-10-10 20:09 | P.PNADD ---
Addendum to Inpatient Note Reason for Addendum: Additional Documentation Additional information: Patient found on floor in bathroom with syringes and spoons. Order for no visitors placed and all PO meds must be crushed when given to patient. If needed a sitter will be ordered.
--- NOTE | 2017-10-10 20:25 | P.PNADD ---
Addendum to Inpatient Note Reason for Addendum: Additional Documentation Additional information: S: Residents called for code blue that was soon canceled and converted to a Halicat. Patient was found nonresponsive on the floor of her room. Patient regained consciousness as chest compressions were initiated. Patient was alert and oriented 3. She reports she was walking to get some tea and does not remember what happened after. She does admit to taking 2 mg Dilaudid from her own stash in addition to the Dilaudid that she is getting for pain control. Denies any recent IV drug use or any other substance use. Patient reports that she has left-sided chest pain, nonradiating that has been present throughout her hospitalization. Endorses mild dizziness. Multiple needles and small pillbox found in patient's bathroom. o: Temp: 97.9F HR: 73 BP:102/52 RR: 16 O2 sat: 100% on 2 L NC GEN: Sitting in chair, "sleepy" HENT: Head: no tenderness upon palpation of the scalp, no laceration noted. Neck :FROM, Throat: no broken teeth, small amount of blood from gums on left side, no cuts noted. Cardio: Regular rate and rhythm, normal S1-S2, no murmurs gallops or rubs Respiratory: Clear to auscultation bilaterally, no CVA tenderness Back: tenderness to palpation along lumbar spine and left paralumbar muscles Ext: +2 dorsalis pedis pulses bilaterally, nontender calves, normal sensation, pain with extension of left arm above 90, 5/5 strength in rest of extremities Neuro: Cranial nerves intact 2 through 12, AAOx3 A/P: 26-year-old female with history of IV drug use, endocarditis admitted for fever of unknown origin and high ammonia levels. Patient also has history of mechanical heart valve, but Coumadin has been on hold due supra-therapeutic INR. Most recent INR value of 3.4 Physical exam within normal limits, patient is alert and oriented 3, no neurological deficits. Due to loss of consciousness and fall injuring her head, L shoulder and lower back will obtain imaging studies to rule out bleed and fractures. Multiple needles and small pillbox found in patient's bathroom. Patient admitted to taking additional 2 mg of Dilaudid. Per protocol all pain medication will be withheld for at least 4 hours. Resume pain medication per primary medicine team. neuro checks hold asa Follow-up: Head CT without contrast Left shoulder and lumbar spine x-ray EKG and troponin Urine drug screen CMP and ammonia level
--- NOTE | 2017-10-10 21:28 | CT ---
EXAM DATE: 10/10/2017 9:20 PM EDT AGE/SEX: 26 years / Female INDICATIONS: Syncopal episode, fell and hit head. History of known right sided infarct. CLINICAL DATA: This is the patient's initial encounter. Patient reports that signs and symptoms have been present for 1 day and indicates a pain score of 3/10. MEDICAL/SURGICAL HISTORY: Cerebrovascular disease. Endocarditis. . Mitral valve replacement. RADIATION DOSE: 47.52 CTDI (mGy) COMPARISON: [facility] [place], CT BRAIN W/O CONTRAST, 08/14/2017. . TECHNIQUE: CT of the head without contrast. Using automated exposure control and adjustment of the mA and/or kV according to patient size, radiation dose was kept as low as reasonably achievable to ob tain optimal diagnostic quality images. DICOM format image data is available electronically for revi ew and comparison. FINDINGS: Cerebrum: The ventricles are normal for age. No evidence of midline shift, mass lesion, or hemorrha ge. There is an area of decreased attenuation and encephalomalacia again noted involving the right pa rietal lobe. There is a smaller area of decreased attenuation in the right basal ganglia which is sta ble as well.. No extraaxial fluid collections are seen. Posterior Fossa: The cerebellum and brainstem are intact. The 4th ventricle is midline. The cerebe llopontine angle is unremarkable. Extracranial: The visualized portion of the orbits is intact. Skull: The calvaria is intact. No evidence of skull fracture. CONCLUSION: 1. No acute hemorrhage, mass or acute infarction. 2. Stable encephalomalacia involving the right middle artery territory consistent with area of old i nfarction.. . Electronically signed by: Allan Knapp MD 10/10/2017 9:27 PM EDT
--- NOTE | 2017-10-10 21:36 | XR ---
EXAM DATE: 10/10/2017 9:19 PM EDT AGE/SEX: 26 years / Female INDICATIONS: Patient complains of left shoulder pain status post fall. CLINICAL DATA: This is the patient's initial encounter. Patient reports that signs and symptoms have been present for 1 day and indicates a pain score of 5/10. MEDICAL/SURGICAL HISTORY: None. . Pacemaker. Mitral Valve replacement with mechanical valve. Tr icuspid valve replacement with mechanical valve. COMPARISON: No prior exams available for comparison. FINDINGS: Bony structures are intact and in normal alignment. Joints are intact without dislocation or signifi cant arthropathy. Osseous density is normal. Soft tissues are unremarkable. No radiopaque foreign bodies seen. CONCLUSION: Negative 2 view trauma study. Electronically signed by: Allan Knapp MD 10/10/2017 9:35 PM EDT
--- NOTE | 2017-10-10 21:36 | XR ---
EXAM DATE: 10/10/2017 9:14 PM EDT AGE/SEX: 26 years / Female INDICATIONS: Patient complains of lower back pain status post fall. CLINICAL DATA: This is the patient's initial encounter. Patient reports that signs and symptoms have been present for 1 day and indicates a pain score of 6/10. MEDICAL/SURGICAL HISTORY: None. None. COMPARISON: No prior exams available for comparison. FINDINGS: The vertebral bodies are in normal alignment without evidence of compression deformity. Bone density is normal for age. Soft tissues are grossly intact. There is a mild scoliosis. The sacrum is intact . CONCLUSION: Negative trauma study. Electronically signed by: Allan Knapp MD 10/10/2017 9:34 PM EDT
[2017-10-10 22:47] LABS: Alanine Aminotransferase 29 U/L (10-53); Albumin 3.7 g/dL (3.4-5.0); Anion Gap 10 meq/L (5-15); Aspartate Aminotransferase 39 U/L (15-37); Blood Urea Nitrogen 14 mg/dL (7-18); Calcium 8.9 mg/dL (8.5-10.1); Carbon Dioxide 17.6 meq/L (21.0-32.0); Chloride 113 meq/L (98-107); Glomerular Filtration Rate 67 mL/min (>89); Glucose,Random 94 mg/dL (74-106); Potassium 3.7 meq/L (3.5-5.1); Sodium 141 meq/L (136-145)
[2017-10-10 22:51] LABS: Alkaline Phosphatase 279 U/L (45-117); Total Protein 9.2 g/dL (6.4-8.2)
[2017-10-11 04:52] LABS: Amphetamine Screen,Urine Neg (Neg); Barbiturate Screen,Urine Neg (Neg); Cannabinoid Screen,Urine Neg (Neg); Cocaine Screen,Urine Neg (Neg)
[2017-10-11 04:55] LABS: Opiate Screen,Urine Pos (Neg)
[2017-10-11] MEDS: FLUoxetine 20 MG Capsule PO SCH (09:16)
[2017-10-11] MEDS: Topiramate 25 MG Tablet PO SCH ×2 (09:16→22:16)
[2017-10-11] MEDS: Senna/Docusate Sodium 8.6/50 MG Tablet PO SCH ×2 (09:16→22:04)
[2017-10-11] MEDS: LORazepam 1 MG Tablet PO SCH ×2 (09:16→22:16)
[2017-10-11] MEDS: levETIRAcetam 500 MG Tablet PO SCH ×2 (09:16→22:16)
[2017-10-11 09:41] LABS: INR 2.5 Ratio; Prothrombin Time 24.8 sec (9.8-11.6)
--- NOTE | 2017-10-11 11:16 | P.PN ---
Subjective Interval history: Follow-up fungemia/ supra therapeutic INR October 09, 2017-patient seen and examined, INR still elevated despite vitamin K. Alert and oriented 2. Mom by the bedside. October 10, 2017-patient seen and examined, states she feels better today continuing to complain of bilateral upper extremity pain. Afebrile. INR down to 3.4 October 11, 2017-patient seen and examined, patient was found passed out last night, Joselin . syringes and spoons found in her personal belongings. She admit of taking 1 tab Dilaudid 2mg x 1. INR this AM 2.5 Physical Exam Vital signs: Vital Signs 10/10/17 12:00 10/10/17 16:00 10/10/17 19:15 Temperature 98.0 F 97.9 F Pulse Rate 60 61 Respiratory Rate 16 17 14 Blood Pressure 125/57 L 122/56 L Pulse Oximetry 100 99 10/10/17 20:00 10/10/17 20:05 10/11/17 00:00 Temperature 97.8 F 97.8 F 97.5 F L Pulse Rate 77 73 59 L Respiratory Rate 16 16 16 Blood Pressure 102/52 L 102/52 L 137/64 Pulse Oximetry 100 100 100 10/11/17 00:10 10/11/17 04:00 10/11/17 09:00 Temperature 98.3 F 99.1 F Pulse Rate 61 61 69 Respiratory Rate 16 18 Blood Pressure 126/58 L 138/56 L Pulse Oximetry 100 100 Intake & Output 10/10/17 10/11/17 10/11/17 18:59 06:59 18:59 Intake Total 680 / 680 222 / 222 Output Total 200 / 200 Balance 680 / 680 Weight 68.2 kg Intake: IV 200 / 200 Diflucan 400 mg Premix Bag 200 200 / 200 ML @ 100 mls/hr IV.SIG Q24H [facility] Rx#:[id number] Oral 480 / 480 222 / 222 Output: Urine 200 / 200 Other: # Voids 3 1 Date of Last Bowel Movement 10/10/17 10/10/17 # Bowel Movements 2 1 Narrative: GENERAL: NAD SKIN: Warm and dry. HEAD: Normocephalic. EYES: No scleral icterus. No injection or drainage. NECK: Supple, trachea midline. No JVD or lymphadenopathy. CARDIOVASCULAR: Regular rate and rhythm with 5/6 murmurs RESPIRATORY: Breath sounds equal bilaterally. No accessory muscle use. GASTROINTESTINAL: Abdomen soft, non-tender, nondistended. MUSCULOSKELETAL: No cyanosis, or edema. BACK: Nontender without obvious deformity. No CVA tenderness. Results - Labs CBC & Chem 7: 10/04/17 04:35 10/10/17 21:49 Laboratory Results - last 24 hr 10/10/17 10/10/17 10/11/17 21:45 21:49 04:25 PT INR Sodium 141 Potassium 3.7 Chloride 113 H Carbon Dioxide 17.6 L Anion Gap 10 BUN 14 Creatinine 0.99 Estimated GFR 67 L Random Glucose 94 Calcium 8.9 Total Bilirubin 0.8 AST 39 H ALT 29 Alkaline Phosphatase 279 H Ammonia 66 H Troponin I Less than 0.02 L Total Protein 9.2 H D Albumin 3.7 Urine Opiates Screen Pos H Ur Barbiturates Screen Neg Ur Amphetamines Screen Neg U Benzodiazepines Scrn Pos H Urine Cocaine Screen Neg U Cannabinoids Screen Neg 10/11/17 08:35 PT 24.8 H INR 2.5 Sodium Potassium Chloride Carbon Dioxide Anion Gap BUN Creatinine Estimated GFR Random Glucose Calcium Total Bilirubin AST ALT Alkaline Phosphatase Ammonia Troponin I Total Protein Albumin Urine Opiates Screen Ur Barbiturates Screen Ur Amphetamines Screen U Benzodiazepines Scrn Urine Cocaine Screen U Cannabinoids Screen Microbiology 10/05/17 18:25 Blood - Peripheral Aerobic Blood Culture - Final No growth in 5 days 10/05/17 18:25 Blood - Peripheral Anaerobic Blood Culture - Final No growth in 5 days 10/05/17 18:20 Blood - Peripheral Aerobic Blood Culture - Final No growth in 5 days 10/05/17 18:20 Blood - Peripheral Anaerobic Blood Culture - Final No growth in 5 days - Imaging Impressions Lumbar Spine X-Ray 10/10/17 00:00 CONCLUSION: Negative trauma study. Shoulder X-Ray 10/10/17 00:00 CONCLUSION: Negative 2 view trauma study. Head CT 10/10/17 20:22 CONCLUSION: 1. No acute hemorrhage, mass or acute infarction. 2. Stable encephalomalacia involving the right middle artery territory consistent with area of old infarction.. . Assessment and Plan - Assessment (1) Fever of unknown origin Code(s): R50.9 - Fever, unspecified Status: Acute (2) H/O mitral valve replacement with mechanical valve Code(s): Z95.2 - Presence of prosthetic heart valve Status: Acute (3) History of tricuspid valve replacement with mechanical valve Code(s): Z95.2 - Presence of prosthetic heart valve Status: Acute - Plan 26-year-old female with Fungemia Continue with IV Diflucan, duration 2 weeks. Echocardiogram is negative. ID following Ophthalmology consultation pending supra-therapeutic INR for mech. heart valve INR down to 2.5 Resume Coumadin 5mg daily today 10/11 - INR goal is 2.5 to 3.5. Hyperammonemia - stable clinically Monitor ammonia level and continue daily lactulose Mild Hepatic encephalopathy - Resolving Bilateral upper extremity superficial thrombophlebitis Resume Coumadin Pacemaker site pain -Ultrasound of pacemaker site showed no abscess -Continue Percocet for pain -Pacemaker was interrogated showed no abnormality PSA Patient Joselin last night UDS ordered
[2017-10-11] MEDS ORDERED: Warfarin Consult Pharmacy OTHER ONE (11:18)
[2017-10-11] MEDS ORDERED: Warfarin Consult Pharmacy OTHER SCH (16:00)
[2017-10-12 07:58] LABS: Prothrombin Time 29.8 sec (9.8-11.6)
[2017-10-12] MEDS: LORazepam 1 MG Tablet PO SCH ×2 (09:46→21:46)
[2017-10-12] MEDS: levETIRAcetam 500 MG Tablet PO SCH ×2 (09:46→21:46)
[2017-10-12] MEDS: FLUoxetine 20 MG Capsule PO SCH (09:46)
[2017-10-12] MEDS: Topiramate 25 MG Tablet PO SCH ×2 (09:46→21:45)
[2017-10-12] MEDS: Senna/Docusate Sodium 8.6/50 MG Tablet PO SCH ×2 (09:47→21:46)
--- NOTE | 2017-10-12 10:25 | P.PN ---
Subjective Interval history: Follow-up fungemia/ supra therapeutic INR October 09, 2017-patient seen and examined, INR still elevated despite vitamin K. Alert and oriented 2. Mom by the bedside. October 10, 2017-patient seen and examined, states she feels better today continuing to complain of bilateral upper extremity pain. Afebrile. INR down to 3.4 October 11, 2017-patient seen and examined, patient was found passed out last night, Joselin . syringes and spoons found in her personal belongings. She admit of taking 1 tab Dilaudid 2mg x 1. INR this AM 2.5 October 12, 2017-patient seen and examined, stable today and she has no complaint. Afebrile. She admitted using heroin within a week prior to admission to the hospital Physical Exam Vital signs: Vital Signs 10/11/17 12:00 10/11/17 15:33 10/11/17 16:00 Temperature 97.8 F 98 F Pulse Rate 66 63 Respiratory Rate 18 16 18 Blood Pressure 124/59 L 118/57 L Pulse Oximetry 98 99 10/11/17 19:00 10/11/17 20:00 10/12/17 00:00 Temperature 97.9 F 98.2 F Pulse Rate 61 64 Respiratory Rate 14 18 18 Blood Pressure 125/58 L 122/58 L Pulse Oximetry 96 100 10/12/17 04:00 10/12/17 07:00 10/12/17 08:00 Temperature 98.3 F 98.3 F Pulse Rate 67 61 Respiratory Rate 18 16 14 Blood Pressure 131/63 121/55 L Pulse Oximetry 97 98 Intake & Output 10/11/17 10/12/17 10/12/17 18:59 06:59 18:59 Intake Total 200 / 200 Balance 200 / 200 Weight 64.9 kg Intake: IV 200 / 200 Diflucan 400 mg Premix Bag 200 200 / 200 ML @ 100 mls/hr IV.SIG Q24H [facility] Rx#:[id number] Other: Date of Last Bowel Movement 10/11/17 Narrative: GENERAL: NAD SKIN: Warm and dry. HEAD: Normocephalic. EYES: No scleral icterus. No injection or drainage. NECK: Supple, trachea midline. No JVD or lymphadenopathy. CARDIOVASCULAR: Regular rate and rhythm with 5/6 murmurs RESPIRATORY: Breath sounds equal bilaterally. No accessory muscle use. GASTROINTESTINAL: Abdomen soft, non-tender, nondistended. MUSCULOSKELETAL: No cyanosis, or edema. BACK: Nontender without obvious deformity. No CVA tenderness. Results - Labs CBC & Chem 7: 10/04/17 04:35 10/10/17 21:49 Laboratory Results - last 24 hr 10/12/17 06:54 PT 29.8 H INR 3.0 Assessment and Plan - Assessment (1) Fever of unknown origin Code(s): R50.9 - Fever, unspecified Status: Acute (2) H/O mitral valve replacement with mechanical valve Code(s): Z95.2 - Presence of prosthetic heart valve Status: Acute (3) History of tricuspid valve replacement with mechanical valve Code(s): Z95.2 - Presence of prosthetic heart valve Status: Acute - Plan 26-year-old female with Fungemia Continue with IV Diflucan, duration 2 weeks. Echocardiogram is negative. ID following Ophthalmology consultation pending supra-therapeutic INR for mech. heart valve INR 3.0 Currently on Coumadin 5mg daily - INR goal is 2.5 to 3.5. Hyperammonemia - stable clinically Monitor ammonia level and continue daily lactulose Mild Hepatic encephalopathy - Resolved Bilateral upper extremity superficial thrombophlebitis Resume Coumadin Pacemaker site pain -Ultrasound of pacemaker site showed no abscess -Continue Percocet for pain -Pacemaker was interrogated showed no abnormality PSA Patient Joselin on 10/10/17 night Counselled against
[2017-10-12] MEDS: traZODone 100 MG Tablet PO PRN (22:13)
[2017-10-13 06:51] LABS: INR 4.4 Ratio; Prothrombin Time 44.5 sec (9.8-11.6)
[2017-10-13] MEDS: LORazepam 1 MG Tablet PO SCH ×2 (08:24→21:43)
[2017-10-13] MEDS: levETIRAcetam 500 MG Tablet PO SCH ×2 (08:24→21:43)
[2017-10-13] MEDS: FLUoxetine 20 MG Capsule PO SCH (08:25)
[2017-10-13] MEDS: Senna/Docusate Sodium 8.6/50 MG Tablet PO SCH ×2 (08:25→21:45)
[2017-10-13] MEDS: Topiramate 25 MG Tablet PO SCH ×2 (08:25→21:43)
--- NOTE | 2017-10-13 11:37 | P.PN ---
Subjective Interval history: Follow-up fungemia/ supra therapeutic INR October 09, 2017-patient seen and examined, INR still elevated despite vitamin K. Alert and oriented 2. Mom by the bedside. October 10, 2017-patient seen and examined, states she feels better today continuing to complain of bilateral upper extremity pain. Afebrile. INR down to 3.4 October 11, 2017-patient seen and examined, patient was found passed out last night, Joselin . syringes and spoons found in her personal belongings. She admit of taking 1 tab Dilaudid 2mg x 1. INR this AM 2.5 October 12, 2017-patient seen and examined, stable today and she has no complaint. Afebrile. She admitted using heroin within a week prior to admission to the hospital October 13, 2017-patient seen and examined, stable. States she does not like her diet otherwise no other issues. Physical Exam Vital signs: Vital Signs 10/12/17 12:00 10/12/17 16:00 10/12/17 20:00 Temperature 97.2 F L 98.0 F 98.0 F Pulse Rate 63 60 61 Respiratory Rate 16 16 18 Blood Pressure 120/64 118/56 L 119/57 L Pulse Oximetry 99 98 97 10/13/17 00:00 10/13/17 04:00 10/13/17 08:00 Temperature 97.1 F L 98.0 F Pulse Rate 61 66 60 Respiratory Rate 18 18 Blood Pressure 119/54 L 115/59 L Pulse Oximetry 99 99 Intake & Output 10/12/17 10/13/17 10/13/17 18:59 06:59 18:59 Intake Total 200 / 200 Balance 200 / 200 Weight 54.3 kg Intake: IV 200 / 200 Diflucan 400 mg Premix Bag 200 200 / 200 ML @ 100 mls/hr IV.SIG Q24H [facility] Rx#:[id number] Other: Date of Last Bowel Movement 10/12/17 Narrative: GENERAL: NAD SKIN: Warm and dry. HEAD: Normocephalic. EYES: No scleral icterus. No injection or drainage. NECK: Supple, trachea midline. No JVD or lymphadenopathy. CARDIOVASCULAR: Regular rate and rhythm with 5/6 murmurs RESPIRATORY: Breath sounds equal bilaterally. No accessory muscle use. GASTROINTESTINAL: Abdomen soft, non-tender, nondistended. MUSCULOSKELETAL: No cyanosis, or edema. BACK: Nontender without obvious deformity. No CVA tenderness. Results - Labs CBC & Chem 7: 10/04/17 04:35 10/10/17 21:49 Laboratory Results - last 24 hr 10/13/17 05:55 PT 44.5 H D INR 4.4 Assessment and Plan - Assessment (1) Fever of unknown origin Code(s): R50.9 - Fever, unspecified Status: Acute (2) H/O mitral valve replacement with mechanical valve Code(s): Z95.2 - Presence of prosthetic heart valve Status: Acute (3) History of tricuspid valve replacement with mechanical valve Code(s): Z95.2 - Presence of prosthetic heart valve Status: Acute - Plan 26-year-old female with Fungemia Continue with IV Diflucan, duration 2 weeks. Echocardiogram is negative. ID following Ophthalmology consultation pending supra-therapeutic INR for mech. heart valve INR 4.4 Hold Coumadin 5mg daily - INR goal is 2.5 to 3.5. Hyperammonemia - stable clinically Monitor ammonia level and continue daily lactulose Mild Hepatic encephalopathy - Resolved Bilateral upper extremity superficial thrombophlebitis Resume Coumadin Pacemaker site pain -Ultrasound of pacemaker site showed no abscess -Continue Percocet for pain -Pacemaker was interrogated showed no abnormality PSA Patient Joselin on 10/10/17 night Counselled against
[2017-10-13] MEDS: Acetaminophen 325 MG Tablet PO PRN (17:10)
--- NOTE | 2017-10-13 18:18 | P.CON ---
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 Presented to ED with fever, malaise, and confusion. Echocardiogram was negative for any new vegetations. Blood culture positive for C. albicans - currently being treated with fluconazole. Pt states she had a migraine that started this morning and therefore is refusing to have a dilated eye exam today. She states she has not been having any problems with her vision and has no significant ocular history. FOR[facility]LY [facility], [facility] - History History Provided By: Patient - Medical History Medical History: Medical History (Last Reviewed 09/25/17 @ 09:27 by Tonny Zamora RN) SBE (subacute bacterial endocarditis) Seizure as late effect of cerebrovascular accident (CVA) Stroke - Surgical History Surgical History: Surgical History (Last Reviewed 09/25/17 @ 09:27 by Tonny Zamora RN) H/O mitral valve replacement with mechanical valve History of tricuspid valve replacement with mechanical valve - Tobacco History Second Hand Smoke Exposure: No Tobacco Use In Past 30 Days: No Smoking Status: Never smoker Tobacco Type: Cigarettes - Alcohol History How Often Do You Have a Drink Containing Alcohol: Monthly or less - Substance Use History Substance History: Past History - Substance Use Type Opiates Status: Sustained Remission Route Used: Intravenously Last Used: 2013 Reason for Use: Feels Good - Travel History Recent Travel in the [place] Within the Last 8 Weeks: No Recent Travel Out of the Country Within the Last 8 Weeks: No - Immunization History Tetanus Immunization: <5 Years Hx Influenza Vaccine This Season: No Medications and Allergies Active Medications: Active Medications Acetaminophen (Tylenol) 650 mg PO Q4H PRN PRN Reason: temp>100.4, pain 1-5 Last Admin: 10/13/17 17:10 Dose: 650 mg Al Hydroxide/Mg Hydroxide (Milk Of Magnesia Liq) 30 ml PO Q12H PRN PRN Reason: Mild Constipation Aspirin (Aspirin Chew) 81 mg PO DAILY [facility] Last Admin: 10/10/17 08:08 Dose: 81 mg Bisacodyl (Dulcolax Supp) 10 mg RECTAL DAILY PRN PRN Reason: SEVERE CONSITIPATION Diphenhydramine HCl (Benadryl) 25 mg PO HS PRN PRN Reason: INSOMNIA Last Admin: 09/29/17 03:07 Dose: 25 mg Fluoxetine HCl (Prozac) 20 mg PO DAILY [facility] Last Admin: 10/13/17 08:25 Dose: 20 mg Hydromorphone HCl (Dilaudid) 2 mg PO Q8HR PRN PRN Reason: Pain 3 to 10 Last Admin: 10/13/17 11:37 Dose: 2 mg Fluconazole (Diflucan 400 Mg Premix Bag) 200 mls @ 100 mls/hr IV.SIG Q24H [facility] Last Infusion: 10/13/17 17:15 Dose: Infused Lactulose (Lactulose Liq) 30 ml PO QID [facility] Last Admin: 10/13/17 13:16 Dose: 30 ml Lactulose (Lactulose Liq) 30 ml PO DAILY PRN PRN Reason: SEVERE CONSITIPATION Last Admin: 09/30/17 20:55 Dose: 30 ml Levetiracetam (Keppra) 500 mg PO BID [facility] Last Admin: 10/13/17 08:24 Dose: 500 mg Lorazepam (Ativan) 1 mg PO BID [facility] Last Admin: 10/13/17 08:24 Dose: 1 mg Pantoprazole Sodium (Protonix) 40 mg PO DAILY [facility] Last Admin: 10/13/17 08:24 Dose: 40 mg Pharmacy Profile Note (Coumadin Consult Pharmacy) 1 each OTHER ONCE [facility] Promethazine HCl (Phenergan) 25 mg PO Q6H PRN PRN Reason: NAUSEA OR VOMITING Last Admin: 10/05/17 04:32 Dose: 25 mg Senna/Docusate Sodium (Mariam-Colace) 1 tab PO BID [facility] Last Admin: 10/13/17 08:25 Dose: Not Given Sennosides (Senokot) 17.2 mg PO Q12H PRN PRN Reason: Moderate Constipation Topiramate (Topamax) 50 mg PO BID [facility] Last Admin: 10/13/17 08:25 Dose: 50 mg Trazodone HCl (Desyrel) 100 mg PO HS PRN PRN Reason: INSOMNIA Last Admin: 10/12/17 22:13 Dose: 100 mg Allergies Allergy/AdvReac Type Severity Reaction Status Date / Time codeine Allergy Severe HIVES/VOMIT Verified 09/14/17 21:46 ING Fish Containing Products Allergy Severe THROAT Verified 09/14/17 21:46 SWOLLEN/HIVES gabapentin Allergy Severe Hives Verified 09/14/17 21:46 morphine Allergy Severe Hives Verified 09/14/17 21:46 naproxen Allergy Severe Hives Verified 09/14/17 21:46 piperacillin Allergy Severe Hives Verified 09/14/17 21:46 tazobactam Allergy Severe Hives Verified 07/24/17 01:33 adhesive tape Allergy Rash, Verified 09/14/17 21:44 Localized shellfish derived Allergy Difficulty Verified 09/14/17 21:46 Breathing Home Medications Medication Instructions Recorded Confirmed Type aspirin 81 mg PO DAILY 09/14/17 09/14/17 History ferrous sulfate 15 mg PO BID 09/14/17 09/14/17 History fluoxetine 20 mg PO DAILY 09/14/17 09/14/17 History lorazepam 1 mg PO BID 09/14/17 09/14/17 History methocarbamol 500 mg PO QID 09/14/17 09/14/17 History oxycodone 10 mg PO Q4-6H PRN 09/14/17 09/14/17 History pantoprazole [Protonix] 40 mg PO DAILY 09/14/17 09/14/17 History topiramate [Topamax] 50 mg PO DAILY 09/14/17 09/14/17 History warfarin [Coumadin] 5 mg PO DAILY 09/14/17 09/14/17 History warfarin [Coumadin] 5 mg PO DAILY 09/14/17 09/14/17 History Physical Exam Vital signs: Vital Signs 10/12/17 20:00 10/13/17 00:00 10/13/17 04:00 Temperature 98.0 F 97.1 F L 98.0 F Pulse Rate 61 61 66 Respiratory Rate 18 18 18 Blood Pressure 119/57 L 119/54 L 115/59 L Pulse Oximetry 97 99 99 10/13/17 07:00 10/13/17 08:00 10/13/17 12:00 Temperature 98.2 F 98.2 F Pulse Rate 61 62 Respiratory Rate 18 18 16 Blood Pressure 131/63 135/57 L Pulse Oximetry 99 100 10/13/17 16:00 Temperature Pulse Rate 82 Respiratory Rate Blood Pressure Pulse Oximetry Intake & Output 10/12/17 10/13/17 10/13/17 18:59 06:59 18:59 Intake Total 200 / 200 200 / 200 Balance 200 / 200 200 / 200 Weight 54.3 kg Intake: IV 200 / 200 200 / 200 Diflucan 400 mg Premix Bag 200 200 / 200 200 / 200 ML @ 100 mls/hr IV.SIG Q24H [facility] Rx#:[id number] Other: Date of Last Bowel Movement 10/12/17 - Detailed Eye Exam Comments: refused eye exam due to migraine Assessment and Plan - Assessment (1) Fungemia Code(s): B49 - Unspecified mycosis Status: Acute Plan: Patient refused dilated eye exam today due to migraine. Will come back tomorrow.
[2017-10-13] MEDS ORDERED: Vancomycin Consult Pharmacy OTHER PRN (19:23)
--- NOTE | 2017-10-13 19:23 | P.PNID ---
Subjective Remarks: BUE US with + superficial thrombosis co nausea, chills refused dilated exam Temp 102 F Antibiotics: Flucaonzol Allergies/Adverse Reactions: Allergies codeine Allergy (Severe, Verified 09/14/17 21:46) HIVES/VOMITING Fish Containing Products Allergy (Severe, Verified 09/14/17 21:46) THROAT SWOLLEN/HIVES gabapentin Allergy (Severe, Verified 09/14/17 21:46) Hives morphine Allergy (Severe, Verified 09/14/17 21:46) Hives naproxen Allergy (Severe, Verified 09/14/17 21:46) Hives piperacillin Allergy (Severe, Verified 09/14/17 21:46) Hives tazobactam Allergy (Severe, Verified 07/24/17 01:33) Hives adhesive tape Allergy (Verified 09/14/17 21:44) Rash, Localized shellfish derived Allergy (Verified 09/14/17 21:46) Difficulty Breathing Objective Vital Signs 10/12/17 20:00 10/13/17 00:00 10/13/17 04:00 Temperature 98.0 F 97.1 F L 98.0 F Pulse Rate 61 61 66 Respiratory Rate 18 18 18 Blood Pressure 119/57 L 119/54 L 115/59 L Pulse Oximetry 97 99 99 10/13/17 07:00 10/13/17 08:00 10/13/17 12:00 Temperature 98.2 F 98.2 F Pulse Rate 61 62 Respiratory Rate 18 18 16 Blood Pressure 131/63 135/57 L Pulse Oximetry 99 100 10/13/17 16:00 Temperature 102.0 F H Pulse Rate 89 Respiratory Rate 17 Blood Pressure 154/69 H Pulse Oximetry 98 Intake & Output 10/13/17 10/13/17 10/14/17 06:59 18:59 06:59 Intake Total 800 / 800 Output Total 400 / 400 Balance 400 / 400 Weight 54.3 kg Intake: IV 200 / 200 Diflucan 400 mg Premix Bag 200 200 / 200 ML @ 100 mls/hr IV.SIG Q24H [facility] Rx#:[id number] Oral 600 / 600 Output: Urine 400 / 400 Other: # Voids 2 Date of Last Bowel Movement 10/12/17 10/13/17 # Bowel Movements 1 Imaging: ITS Impressions Soft Tissue Ultrasound 09/15/17 00:00 CONCLUSION: 1. Negative for abscess or fluid collection. Abdomen X-Ray 09/16/17 00:00 CONCLUSION: Nonspecific KUB. Chest X-Ray 10/02/17 00:45 CONCLUSION: Clear lungs. Venous Doppler Study 10/09/17 00:00 CONCLUSION: 1. Bilateral upper extremity superficial thrombophlebitis. 2. No evidence of DVT Lumbar Spine X-Ray 10/10/17 00:00 CONCLUSION: Negative trauma study. Shoulder X-Ray 10/10/17 00:00 CONCLUSION: Negative 2 view trauma study. Head CT 10/10/17 20:22 CONCLUSION: 1. No acute hemorrhage, mass or acute infarction. 2. Stable encephalomalacia involving the right middle artery territory consistent with area of old infarction.. . Physical Exam: GENERAL: Looks sick SKIN: Warm to touch and dry. CARDIOVASCULAR: Regular rate and rhythm. Pacemaker in place no swelling around it, no fluctuance and tenderness to palpation no redness RESPIRATORY: No accessory muscle use. Clear to auscultation. Breath sounds equal bilaterally. GASTROINTESTINAL: Abdomen soft, non-tender, moderately distended ? ascites Hepatic and splenic margins not palpable. MUSCULOSKELETAL: Extremities without clubbing, cyanosis, or edema. No obvious deformities. NEUROLOGICAL: Awake and alert. No obvious cranial nerve deficits. Motor grossly within normal limits. Five out of 5 muscle strength in the arms and legs. Normal speech. PSYCHIATRIC: Appropriate mood and affect; insight and judgment normal. 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 Pacer lead endocarditis TAO negative TEnderness and swelling of pacemeaker pocket, r/o infeciton New fungemia, C. albicans: 2 D echo negative ? pacer lead infx New fever cont Fluconazole 400 IV will add vanco, cefepime after blood clx Ophthalmology consult - pt is non cooperative with exam If another C.albicans fungemia consider pacer lead infection clive RN: there is a suspicious that pt is using drugs
[2017-10-13] MEDS: Vancomycin Inj 1,000 MG in Sodium Chlor 0.9% Inj 250 ML IV.SIG SCH (21:44)
[2017-10-14 07:19] LABS: Baso # (Auto) 0.1 th/mm3 (0.0-0.2); Baso % (Auto) 0.5 % (0.0-2.0); Eos # (Auto) 0.2 th/mm3 (0.0-0.4); Eos % (Auto) 1.5 % (0.0-4.0); Hematocrit 32.3 % (35.0-46.0); Hemoglobin 10.6 gm/dL (11.6-15.3); Lymph # (Auto) 2.5 th/mm3 (1.0-4.8); Lymph % (Auto) 18.2 % (9.0-44.0); Mean Corpuscular HGB Conc 32.9 % (32.0-36.0); Mean Corpuscular Volume 85.1 fL (80.0-100.0); Mean Platelet Volume 8.1 fL (7.0-11.0); Mono # (Auto) 1.1 th/mm3 (0.0-0.9); Mono % (Auto) 7.9 % (0.0-8.0); Neut % (Auto) 71.9 % (16.0-70.0); Platelet Count 459 th/mm3 (150-450); Red Blood Count 3.79 mil/mm3 (4.00-5.30)
[2017-10-14 07:41] LABS: Albumin 3.4 g/dL (3.4-5.0); Anion Gap 8 meq/L (5-15); Aspartate Aminotransferase 25 U/L (15-37); Blood Urea Nitrogen 12 mg/dL (7-18); Calcium 8.7 mg/dL (8.5-10.1); Carbon Dioxide 18.9 meq/L (21.0-32.0); Chloride 115 meq/L (98-107); Glomerular Filtration Rate 72 mL/min (>89); Glucose,Random 94 mg/dL (74-106); Potassium 3.6 meq/L (3.5-5.1); Sodium 142 meq/L (136-145)
[2017-10-14 07:44] LABS: Prothrombin Time 60.5 sec (9.8-11.6)
[2017-10-14 07:45] LABS: Alanine Aminotransferase 27 U/L (10-53); Alkaline Phosphatase 235 U/L (45-117); Total Protein 8.6 g/dL (6.4-8.2)
[2017-10-14] MEDS: LORazepam 1 MG Tablet PO SCH ×2 (09:51→21:58)
[2017-10-14] MEDS: FLUoxetine 20 MG Capsule PO SCH (09:51)
[2017-10-14] MEDS: Senna/Docusate Sodium 8.6/50 MG Tablet PO SCH ×2 (09:51→21:57)
[2017-10-14] MEDS: levETIRAcetam 500 MG Tablet PO SCH ×2 (09:51→21:58)
[2017-10-14] MEDS: Topiramate 25 MG Tablet PO SCH ×2 (09:51→21:58)
--- NOTE | 2017-10-14 10:01 | P.PN ---
Subjective Interval history: Pt's migraine is doing better - amenable to eye exam this morning. No visual complaints. Physical Exam Vital signs: Vital Signs 10/13/17 12:00 10/13/17 16:00 10/13/17 19:00 Temperature 98.2 F 102.0 F H Pulse Rate 62 89 Respiratory Rate 16 17 16 Blood Pressure 135/57 L 154/69 H Pulse Oximetry 100 98 10/13/17 20:00 10/14/17 00:00 10/14/17 04:00 Temperature 98.9 F 98.8 F 98.4 F Pulse Rate 63 65 67 Respiratory Rate 18 18 18 Blood Pressure 114/55 L 128/58 L 125/58 L Pulse Oximetry 96 97 97 10/14/17 08:00 10/14/17 09:48 Temperature 100.2 F H 99.9 F H Pulse Rate 82 Respiratory Rate 16 Blood Pressure 123/79 Pulse Oximetry 98 Intake & Output 10/13/17 10/14/17 10/14/17 18:59 06:59 18:59 Intake Total 800 / 800 1170 / 1170 Output Total 400 / 400 200 / 200 Balance 400 / 400 970 / 970 Weight 65.2 kg Intake: IV 200 / 200 450 / 450 Maxipime Inj 2,000 MG In NS Inj 200 / 200 100 ML @ 200 mls/hr IV.SIG Q8H [facility] Rx#:[id number] Diflucan 400 mg Premix Bag 200 200 / 200 ML @ 100 mls/hr IV.SIG Q24H [facility] Rx#:[id number] Vancomycin Inj 1,000 MG In NS 250 / 250 Inj 250 ML @ 250 mls/hr IV.SIG Q18H [facility] Rx#:[id number] Oral 600 / 600 720 / 720 Output: Urine 400 / 400 200 / 200 Other: # Voids 2 Date of Last Bowel Movement 10/13/17 # Bowel Movements 1 0 - Detailed Eye Exam Comments: Va sc at near OD 20/20, OS 20/20 EOM full OU, no diplopia CVF full OU Pupils 2-1 no APD OU IOP normal to palpation OU Anterior exam OD - normal eyelid, C/S W&Q, K clear, AC deep, pupil round, lens clear OS - normal eyelid, C/S W&Q, K clear, AC deep, pupil round, lens clear Dilated exam OD - ON s/p/f, ves normal, vit clear, retina flat OS - ON s/p/f, ves normal, vit clear, retina flat Results - Labs CBC & Chem 7: 10/14/17 06:47 10/14/17 06:47 Laboratory Results - last 24 hr 10/14/17 10/14/17 10/14/17 06:47 06:47 06:47 WBC 14.0 H RBC 3.79 L Hgb 10.6 L Hct 32.3 L MCV 85.1 MCH 28.0 MCHC 32.9 RDW 15.0 Plt Count 459 H MPV 8.1 Neut % (Auto) 71.9 H Lymph % (Auto) 18.2 [place] % (Auto) 7.9 Eos % (Auto) 1.5 Baso % (Auto) 0.5 Neut # (Auto) 10.0 H Lymph # (Auto) 2.5 [place] # (Auto) 1.1 H Eos # (Auto) 0.2 Baso # (Auto) 0.1 WBC Differential . Differential Comment Auto diff final PT 60.5 H D INR 6.0 H* Sodium 142 Potassium 3.6 Chloride 115 H Carbon Dioxide 18.9 L Anion Gap 8 BUN 12 Creatinine 0.93 Estimated GFR 72 L Random Glucose 94 Calcium 8.7 Total Bilirubin 0.7 AST 25 ALT 27 Alkaline Phosphatase 235 H Ammonia Total Protein 8.6 H D Albumin 3.4 10/14/17 06:47 WBC RBC Hgb Hct MCV MCH MCHC RDW Plt Count MPV Neut % (Auto) Lymph % (Auto) [place] % (Auto) Eos % (Auto) Baso % (Auto) Neut # (Auto) Lymph # (Auto) [place] # (Auto) Eos # (Auto) Baso # (Auto) WBC Differential Differential Comment PT INR Sodium Potassium Chloride Carbon Dioxide Anion Gap BUN Creatinine Estimated GFR Random Glucose Calcium Total Bilirubin AST ALT Alkaline Phosphatase Ammonia 49 H Total Protein Albumin Assessment and Plan - Assessment (1) Fungemia Code(s): B49 - Unspecified mycosis Status: Acute Plan: Normal dilated exam - no evidence of fungal endophthalmitis.
[2017-10-14 15:15] LABS: INR 5.8 Ratio; Prothrombin Time 58.2 sec (9.8-11.6)
[2017-10-14] MEDS: Vancomycin Inj 1,000 MG in Sodium Chlor 0.9% Inj 250 ML IV.SIG SCH (15:57)
[2017-10-14] MEDS: Acetaminophen 325 MG Tablet PO PRN (16:02)
--- NOTE | 2017-10-14 16:13 | P.PN ---
Subjective Interval history: Febrile, temp 100.2. Complaining of back pain, no chest pain, no shortness of breath. No diarrhea, no rashes. Just had her eyes dilated, was seen by ophthalmology. Physical Exam Vital signs: Vital Signs 10/13/17 19:00 10/13/17 20:00 10/14/17 00:00 Temperature 98.9 F 98.8 F Pulse Rate 63 65 Respiratory Rate 16 18 18 Blood Pressure 114/55 L 128/58 L Pulse Oximetry 96 97 10/14/17 04:00 10/14/17 08:00 10/14/17 09:48 Temperature 98.4 F 100.2 F H 99.9 F H Pulse Rate 67 82 Respiratory Rate 18 16 Blood Pressure 125/58 L 123/79 Pulse Oximetry 97 98 10/14/17 12:00 Temperature 101.3 F H Pulse Rate 84 Respiratory Rate 16 Blood Pressure 123/76 Pulse Oximetry 95 Intake & Output 10/13/17 10/14/17 10/14/17 18:59 06:59 18:59 Intake Total 800 / 800 1170 / 1170 Output Total 400 / 400 200 / 200 Balance 400 / 400 970 / 970 Weight 65.2 kg Intake: IV 200 / 200 450 / 450 Maxipime Inj 2,000 MG In NS Inj 200 / 200 100 ML @ 200 mls/hr IV.SIG Q8H [facility] Rx#:[id number] Diflucan 400 mg Premix Bag 200 200 / 200 ML @ 100 mls/hr IV.SIG Q24H [facility] Rx#:[id number] Vancomycin Inj 1,000 MG In NS 250 / 250 Inj 250 ML @ 250 mls/hr IV.SIG Q18H [facility] Rx#:[id number] Oral 600 / 600 720 / 720 Output: Urine 400 / 400 200 / 200 Other: # Voids 2 Date of Last Bowel Movement 10/13/17 # Bowel Movements 1 0 Narrative: GENERAL: 26-year-old well-developed well-nourished female, feverish SKIN: Warm and dry. HEAD: Normocephalic. EYES: No scleral icterus. No injection or drainage. NECK: Supple, trachea midline. No JVD or lymphadenopathy. CARDIOVASCULAR: Regular rate and rhythm with 5/6 murmurs RESPIRATORY: Breath sounds equal bilaterally. No accessory muscle use. GASTROINTESTINAL: Abdomen soft, non-tender, nondistended. MUSCULOSKELETAL: No cyanosis, or edema. BACK: Nontender without obvious deformity. No CVA tenderness. NEURO: Grossly intact Results - Labs CBC & Chem 7: 10/14/17 06:47 10/14/17 06:47 Laboratory Results - last 24 hr 10/14/17 10/14/17 10/14/17 06:47 06:47 06:47 WBC 14.0 H RBC 3.79 L Hgb 10.6 L Hct 32.3 L MCV 85.1 MCH 28.0 MCHC 32.9 RDW 15.0 Plt Count 459 H MPV 8.1 Neut % (Auto) 71.9 H Lymph % (Auto) 18.2 [place] % (Auto) 7.9 Eos % (Auto) 1.5 Baso % (Auto) 0.5 Neut # (Auto) 10.0 H Lymph # (Auto) 2.5 [place] # (Auto) 1.1 H Eos # (Auto) 0.2 Baso # (Auto) 0.1 WBC Differential . Differential Comment Auto diff final PT 60.5 H D INR 6.0 H* Sodium 142 Potassium 3.6 Chloride 115 H Carbon Dioxide 18.9 L Anion Gap 8 BUN 12 Creatinine 0.93 Estimated GFR 72 L Random Glucose 94 Calcium 8.7 Total Bilirubin 0.7 AST 25 ALT 27 Alkaline Phosphatase 235 H Ammonia Total Protein 8.6 H D Albumin 3.4 10/14/17 10/14/17 06:47 14:45 WBC RBC Hgb Hct MCV MCH MCHC RDW Plt Count MPV Neut % (Auto) Lymph % (Auto) [place] % (Auto) Eos % (Auto) Baso % (Auto) Neut # (Auto) Lymph # (Auto) [place] # (Auto) Eos # (Auto) Baso # (Auto) WBC Differential Differential Comment PT 58.2 H INR 5.8 Sodium Potassium Chloride Carbon Dioxide Anion Gap BUN Creatinine Estimated GFR Random Glucose Calcium Total Bilirubin AST ALT Alkaline Phosphatase Ammonia 49 H Total Protein Albumin Microbiology 10/13/17 20:00 Blood - Peripheral Aerobic Blood Culture - Preliminary No growth in 1 day 10/13/17 20:00 Blood - Peripheral Anaerobic Blood Culture - Preliminary gram positive cocci 10/13/17 20:40 Blood - Peripheral Aerobic Blood Culture - Preliminary No growth in 1 day 10/13/17 20:40 Blood - Peripheral Anaerobic Blood Culture - Preliminary No growth in 1 day Assessment and Plan - Assessment (1) Fever of unknown origin Code(s): R50.9 - Fever, unspecified Status: Acute (2) H/O mitral valve replacement with mechanical valve Code(s): Z95.2 - Presence of prosthetic heart valve Status: Acute (3) History of tricuspid valve replacement with mechanical valve Code(s): Z95.2 - Presence of prosthetic heart valve Status: Acute (4) Fungemia Code(s): B49 - Unspecified mycosis Status: Acute (5) IVDU (intravenous drug user) Code(s): F19.90 - Other psychoactive substance use, unspecified, uncomplicated Status: Acute - Plan 26-year-old female with a 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 Presented with malaise and low-grade fevers and confusion. Fungemia GPC in blood culture Continue with IV Diflucan, duration 2 weeks. Echocardiogram is negative. Also on Cefepime ID following Ophthalmology input appreciated, exam completed. No evidence of fungal endophthalmitis Remains with fever, blood culture 1 out of 2 from 820 positive for GPC. Discussed with Dr. Gurrola Leukocytosis, follow CBC. supra-therapeutic INR for mech. heart valve INR 6, will give vitamin K 2.5 mg p.o. now Continue to hold Coumadin INR goal is 2.5 to 3.5. Daily INR Hyperammonemia - stable clinically Monitor ammonia level and continue daily lactulose Ammonia level 49 Mild Hepatic encephalopathy - Resolved Bilateral upper extremity superficial thrombophlebitis Resume Coumadin when INR between 2.5-3.5 Pacemaker site pain Ultrasound of pacemaker site showed no abscess Continue Percocet for pain Pacemaker was interrogated showed no abnormality IVDU Patient Joselin on 10/10/17 night Counselled against Labs reviewed, remains a leukocytosis Repeat in a.m.
[2017-10-14] MEDS ORDERED: Phytonadione 2.5 MG/SWFI 2.5 ML Oral Syringe PO ONE (17:00)
--- NOTE | 2017-10-14 17:22 | P.PNID ---
Subjective Remarks: febrile feels sick One of blood culturexs bottle + for GPC in pairs, clusters co tenderness over pacer pocket Antibiotics: Flucaonzol vanco cefepime Allergies/Adverse Reactions: Allergies codeine Allergy (Severe, Verified 09/14/17 21:46) HIVES/VOMITING Fish Containing Products Allergy (Severe, Verified 09/14/17 21:46) THROAT SWOLLEN/HIVES gabapentin Allergy (Severe, Verified 09/14/17 21:46) Hives morphine Allergy (Severe, Verified 09/14/17 21:46) Hives naproxen Allergy (Severe, Verified 09/14/17 21:46) Hives piperacillin Allergy (Severe, Verified 09/14/17 21:46) Hives tazobactam Allergy (Severe, Verified 07/24/17 01:33) Hives adhesive tape Allergy (Verified 09/14/17 21:44) Rash, Localized shellfish derived Allergy (Verified 09/14/17 21:46) Difficulty Breathing Objective Vital Signs 10/13/17 19:00 10/13/17 20:00 10/14/17 00:00 Temperature 98.9 F 98.8 F Pulse Rate 63 65 Respiratory Rate 16 18 18 Blood Pressure 114/55 L 128/58 L Pulse Oximetry 96 97 10/14/17 04:00 10/14/17 08:00 10/14/17 09:48 Temperature 98.4 F 100.2 F H 99.9 F H Pulse Rate 67 82 Respiratory Rate 18 16 Blood Pressure 125/58 L 123/79 Pulse Oximetry 97 98 10/14/17 12:00 10/14/17 16:00 Temperature 101.3 F H 102.4 F H Pulse Rate 84 81 Respiratory Rate 16 17 Blood Pressure 123/76 156/69 H Pulse Oximetry 95 98 Intake & Output 10/13/17 10/14/17 10/14/17 18:59 06:59 18:59 Intake Total 800 / 800 1170 / 1170 Output Total 400 / 400 200 / 200 Balance 400 / 400 970 / 970 Weight 65.2 kg Intake: IV 200 / 200 450 / 450 Maxipime Inj 2,000 MG In NS Inj 200 / 200 100 ML @ 200 mls/hr IV.SIG Q8H [facility] Rx#:[id number] Diflucan 400 mg Premix Bag 200 200 / 200 ML @ 100 mls/hr IV.SIG Q24H [facility] Rx#:[id number] Vancomycin Inj 1,000 MG In NS 250 / 250 Inj 250 ML @ 250 mls/hr IV.SIG Q18H [facility] Rx#:[id number] Oral 600 / 600 720 / 720 Output: Urine 400 / 400 200 / 200 Other: # Voids 2 Date of Last Bowel Movement 10/13/17 # Bowel Movements 1 0 10/13/17 20:00 Blood - Peripheral Aerobic Blood Culture - Preliminary No growth in 1 day 10/13/17 20:00 Blood - Peripheral Anaerobic Blood Culture - Preliminary gram positive cocci 10/13/17 20:40 Blood - Peripheral Aerobic Blood Culture - Preliminary No growth in 1 day 10/13/17 20:40 Blood - Peripheral Anaerobic Blood Culture - Preliminary No growth in 1 day Lab - Hematology Results 10/14/17 06:47 WBC 14.0 H RBC 3.79 L Hgb 10.6 L Hct 32.3 L MCV 85.1 MCH 28.0 MCHC 32.9 RDW 15.0 Plt Count 459 H MPV 8.1 Neut % (Auto) 71.9 H Lymph % (Auto) 18.2 [place] % (Auto) 7.9 Eos % (Auto) 1.5 Baso % (Auto) 0.5 Neut # (Auto) 10.0 H Lymph # (Auto) 2.5 [place] # (Auto) 1.1 H Eos # (Auto) 0.2 Baso # (Auto) 0.1 WBC Differential . Differential Comment Auto diff final Lab - Chemistry Results 10/14/17 10/14/17 06:47 06:47 Sodium 142 Potassium 3.6 Chloride 115 H Carbon Dioxide 18.9 L Anion Gap 8 BUN 12 Creatinine 0.93 Estimated GFR 72 L Random Glucose 94 Calcium 8.7 Total Bilirubin 0.7 AST 25 ALT 27 Alkaline Phosphatase 235 H Ammonia 49 H Total Protein 8.6 H D Albumin 3.4 Imaging: ITS Impressions Soft Tissue Ultrasound 09/15/17 00:00 CONCLUSION: 1. Negative for abscess or fluid collection. Abdomen X-Ray 09/16/17 00:00 CONCLUSION: Nonspecific KUB. Chest X-Ray 10/02/17 00:45 CONCLUSION: Clear lungs. Venous Doppler Study 10/09/17 00:00 CONCLUSION: 1. Bilateral upper extremity superficial thrombophlebitis. 2. No evidence of DVT Lumbar Spine X-Ray 10/10/17 00:00 CONCLUSION: Negative trauma study. Shoulder X-Ray 10/10/17 00:00 CONCLUSION: Negative 2 view trauma study. Head CT 10/10/17 20:22 CONCLUSION: 1. No acute hemorrhage, mass or acute infarction. 2. Stable encephalomalacia involving the right middle artery territory consistent with area of old infarction.. . Physical Exam: GENERAL: Looks sick SKIN: Warm to touch and dry. NO rash CARDIOVASCULAR: Regular rate and rhythm. + Pacemaker in place no swelling around it, no fluctuance + tenderness to palpation no redness + 2/6 holosystolic murmur RESPIRATORY: No accessory muscle use. Clear to auscultation. Breath sounds equal bilaterally. GASTROINTESTINAL: Abdomen soft, non-tender, moderately distended ? ascites Hepatic and splenic margins not palpable. MUSCULOSKELETAL: Extremities without clubbing, cyanosis, or edema. No obvious deformities. NEUROLOGICAL: Awake and alert. No obvious cranial nerve deficits. Motor grossly within normal limits. Five out of 5 muscle strength in the arms and legs. Normal speech. PSYCHIATRIC: Appropriate mood and affect; insight and judgment normal. 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 Pacer lead endocarditis TAO negative TEnderness and swelling of pacemeaker pocket, r/o infeciton New fungemia, C. albicans: 2 D echo negative ? pacer lead infx New fever GPC bacteremia - new cont Fluconazole 400 IV cont vanco, cefepime after blood clx Fu blood clx untill final Ophthalmology consult - pt is non cooperative with exam If another C.albicans fungemia consider pacer lead infection dw RN: there is a suspicious that pt is using drugs
[2017-10-15] MEDS: Vancomycin Inj 1,000 MG in Sodium Chlor 0.9% Inj 250 ML IV.SIG SCH (08:01)
[2017-10-15] MEDS: Topiramate 25 MG Tablet PO SCH ×2 (08:04→21:04)
[2017-10-15] MEDS: levETIRAcetam 500 MG Tablet PO SCH ×2 (08:04→21:03)
[2017-10-15] MEDS: FLUoxetine 20 MG Capsule PO SCH (08:04)
[2017-10-15] MEDS: LORazepam 1 MG Tablet PO SCH ×2 (08:04→21:03)
[2017-10-15] MEDS: Senna/Docusate Sodium 8.6/50 MG Tablet PO SCH ×2 (08:04→21:04)
[2017-10-15 08:19] LABS: Hematocrit 30.3 % (35.0-46.0); Hemoglobin 9.9 gm/dL (11.6-15.3); Mean Corpuscular HGB Conc 32.9 % (32.0-36.0); Mean Corpuscular Volume 85.1 fL (80.0-100.0); Mean Platelet Volume 8.1 fL (7.0-11.0); Platelet Count 451 th/mm3 (150-450); Red Blood Count 3.56 mil/mm3 (4.00-5.30); Red Cell Distribution Width 14.7 % (11.6-17.2); White Blood Count 11.4 th/mm3 (4.0-11.0)
[2017-10-15 08:25] LABS: INR 3.5 Ratio; Prothrombin Time 35.3 sec (9.8-11.6)
[2017-10-15 08:38] LABS: Calcium 8.7 mg/dL (8.5-10.1); Carbon Dioxide 17.4 meq/L (21.0-32.0); Potassium 3.5 meq/L (3.5-5.1)
--- NOTE | 2017-10-15 11:39 | XR ---
EXAM DATE: 10/15/2017 11:35 AM EDT AGE/SEX: 26 years / Female INDICATIONS: Cough and chest pain. CLINICAL DATA: This is the patient's subsequent encounter. Patient reports that signs and symptoms h ave been present for 1 week and indicates a pain score of 6/10. MEDICAL/SURGICAL HISTORY: Seizures. CABG. Pacemaker. Multiple heart valve replacements. [place] [facility] [place]. . FINDINGS: Pacemaker in the left chest. Sternal wires from previous valve replacement. Prominent cardiac silhoue tte with minimal interstitial edema. Minimal parental changes Cardiac region on the left. No pneumothorax or pleural effusion. CONCLUSION: Previous cardiac surgery with cardiomegaly. Mild interstitial edema with minimal parenchymal changes retrocardiac region on the left.. Electronically signed by: Kj Lozano MD 10/15/2017 11:38 AM EDT
[2017-10-15] MEDS: Acetaminophen 325 MG Tablet PO PRN (13:23)
--- NOTE | 2017-10-15 15:15 | P.PN ---
Subjective Interval history: c/o chills, Temp 100.6, body aches "medication not helping". No cough, no sputum , no diarrhea. Diffuse chest pain, same as before. Temp max since yesterday, 102.4. PPM site noted, no erythema, non tender to palpation Physical Exam Vital signs: Vital Signs 10/14/17 16:00 10/14/17 20:00 10/15/17 00:00 Temperature 102.4 F H 98.1 F 98.2 F Pulse Rate 81 68 64 Respiratory Rate 17 18 18 Blood Pressure 156/69 H 116/56 L 131/59 L Pulse Oximetry 98 97 96 10/15/17 04:00 10/15/17 08:00 10/15/17 13:26 Temperature 98.8 F 98.6 F 100.6 F H Pulse Rate 65 69 Respiratory Rate 18 16 Blood Pressure 125/58 L 129/58 L Pulse Oximetry 97 98 Intake & Output 10/14/17 10/15/17 10/15/17 18:59 06:59 18:59 Intake Total 820 / 820 650 / 650 250 / 250 Balance 820 / 820 650 / 650 250 / 250 Weight 64.9 kg Intake: IV 100 / 100 650 / 650 250 / 250 Maxipime Inj 2,000 MG In NS Inj 100 / 100 200 / 200 100 ML @ 200 mls/hr IV.SIG Q8H [facility] Rx#:[id number] Diflucan 400 mg Premix Bag 200 200 / 200 ML @ 100 mls/hr IV.SIG Q24H [facility] Rx#:[id number] Vancomycin Inj 1,000 MG In NS 250 / 250 250 / 250 Inj 250 ML @ 250 mls/hr IV.SIG Q18H [facility] Rx#:[id number] Oral 720 / 720 Other: # Voids 600 Date of Last Bowel Movement 10/14/17 # Bowel Movements 0 6 Narrative: GENERAL: 26-year-old well-developed well-nourished female, having chills, ill- appearing SKIN: Warm and dry. HEAD: Normocephalic. EYES: No scleral icterus. No injection or drainage. NECK: Supple, trachea midline. No JVD or lymphadenopathy. CARDIOVASCULAR: Regular rate and rhythm with 5/6 murmurs RESPIRATORY: Breath sounds equal bilaterally. No accessory muscle use. GASTROINTESTINAL: Abdomen soft, non-tender, nondistended. MUSCULOSKELETAL: No cyanosis, or edema. BACK: Nontender without obvious deformity. No CVA tenderness. NEURO: Grossly intact Results - Labs CBC & Chem 7: 10/15/17 07:53 10/15/17 07:53 Laboratory Results - last 24 hr 10/14/17 10/15/17 10/15/17 14:45 07:53 07:53 WBC 11.4 H RBC 3.56 L Hgb 9.9 L Hct 30.3 L MCV 85.1 MCH 28.0 MCHC 32.9 RDW 14.7 Plt Count 451 H MPV 8.1 PT 58.2 H 35.3 H D INR 5.8 3.5 Sodium Potassium Chloride Carbon Dioxide Anion Gap BUN Creatinine Estimated GFR Random Glucose Calcium 10/15/17 07:53 WBC RBC Hgb Hct MCV MCH MCHC RDW Plt Count MPV PT INR Sodium 142 Potassium 3.5 Chloride 113 H Carbon Dioxide 17.4 L Anion Gap 12 BUN 13 Creatinine 0.89 Estimated GFR 76 L Random Glucose 85 Calcium 8.7 Microbiology 10/13/17 20:00 Blood - Peripheral Aerobic Blood Culture - Preliminary gram positive cocci 10/13/17 20:00 Blood - Peripheral Anaerobic Blood Culture - Preliminary Streptococcus species 10/13/17 20:40 Blood - Peripheral Aerobic Blood Culture - Preliminary Streptococcus species 10/13/17 20:40 Blood - Peripheral Anaerobic Blood Culture - Preliminary gram positive cocci - Imaging Impressions Chest X-Ray 10/15/17 11:11 CONCLUSION: Previous cardiac surgery with cardiomegaly. Mild interstitial edema with minimal parenchymal changes retrocardiac region on the left.. Assessment and Plan - Assessment (1) Fever of unknown origin Code(s): R50.9 - Fever, unspecified Status: Acute (2) H/O mitral valve replacement with mechanical valve Code(s): Z95.2 - Presence of prosthetic heart valve Status: Acute (3) History of tricuspid valve replacement with mechanical valve Code(s): Z95.2 - Presence of prosthetic heart valve Status: Acute (4) Fungemia Code(s): B49 - Unspecified mycosis Status: Acute (5) IVDU (intravenous drug user) Code(s): F19.90 - Other psychoactive substance use, unspecified, uncomplicated Status: Acute (6) Sepsis Code(s): A41.9 - Sepsis, unspecified organism Status: Acute - Plan 26-year-old female with a 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 Presented with malaise and low-grade fevers and confusion. Sepsis with positive blood cultures, 2 out of 2, positive for Streptococcus Also positive for fungemia. ill appearing, sepsis, fevers continue. Now with chills -Appreciate infectious disease input Continue with Diflucan, vancomycin, cefepime Chest x-ray reviewed, no acute findings ophthalmology input appreciated, exam completed. No evidence of fungal endophthalmitis -feverish, ill appearing, noted acidotics in labs. Start sodium bicarb gtt at 84/hr supra-therapeutic INR for mech. heart valve -INR 6, given vitamin K 2.5 mg p.o. 10/14. INR 3.5 today -Continue to hold Coumadin -INR goal is 2.5 to 3.5. -Daily INR Hyperammonemia - stable clinically -Monitor ammonia level and continue daily lactulose -Ammonia level 49, improving Mild Hepatic encephalopathy - Resolved Bilateral upper extremity superficial thrombophlebitis -Resume Coumadin when INR between 2.5-3.5 Pacemaker site pain -Ultrasound of pacemaker site showed no abscess -Continue Percocet for pain -Pacemaker was interrogated showed no abnormality IVDU -Patient Joselin on 10/10/17 night -Counselled against Labs in am Discussed with RN, patient. Continue with present care. (6) Sepsis Qualifiers: Sepsis type: sepsis due to unspecified organism Qualified Code(s): A41.9 - Sepsis, unspecified organism
[2017-10-15] MEDS: Sodium Bicarbonate 8.4% Inj 50 MEQ in Sod Chloride 0.9% Inj 950 ML IV.CONT SCH (15:17)
--- NOTE | 2017-10-15 16:01 | P.PNID ---
Subjective Remarks: co intermittent fevers, chills 4/4 bottles positive for GPC , Strep spp con to c/o on HAA cont to c/o pain @ pacer site also pain, swelling in L forearm Antibiotics: Flucaonzol vanco cefepime Allergies/Adverse Reactions: Allergies codeine Allergy (Severe, Verified 09/14/17 21:46) HIVES/VOMITING Fish Containing Products Allergy (Severe, Verified 09/14/17 21:46) THROAT SWOLLEN/HIVES gabapentin Allergy (Severe, Verified 09/14/17 21:46) Hives morphine Allergy (Severe, Verified 09/14/17 21:46) Hives naproxen Allergy (Severe, Verified 09/14/17 21:46) Hives piperacillin Allergy (Severe, Verified 09/14/17 21:46) Hives tazobactam Allergy (Severe, Verified 07/24/17 01:33) Hives adhesive tape Allergy (Verified 09/14/17 21:44) Rash, Localized shellfish derived Allergy (Verified 09/14/17 21:46) Difficulty Breathing Objective Vital Signs 10/14/17 16:00 10/14/17 20:00 10/15/17 00:00 Temperature 102.4 F H 98.1 F 98.2 F Pulse Rate 81 68 64 Respiratory Rate 17 18 18 Blood Pressure 156/69 H 116/56 L 131/59 L Pulse Oximetry 98 97 96 10/15/17 04:00 10/15/17 08:00 10/15/17 13:26 Temperature 98.8 F 98.6 F 100.6 F H Pulse Rate 65 69 Respiratory Rate 18 16 Blood Pressure 125/58 L 129/58 L Pulse Oximetry 97 98 Intake & Output 10/14/17 10/15/17 10/15/17 18:59 06:59 18:59 Intake Total 820 / 820 650 / 650 1250 / 1250 Balance 820 / 820 650 / 650 1250 / 1250 Weight 64.9 kg Intake: IV 100 / 100 650 / 650 1250 / 1250 Sodium Bicarbonate 8.4% Inj 50 1000 / 1000 MEQ In NS Inj 950 ML @ 84 mls/ hr IV.CONT .[id number] [facility] Rx#: [id number] Maxipime Inj 2,000 MG In NS Inj 100 / 100 200 / 200 100 ML @ 200 mls/hr IV.SIG Q8H [facility] Rx#:[id number] Diflucan 400 mg Premix Bag 200 200 / 200 ML @ 100 mls/hr IV.SIG Q24H [facility] Rx#:[id number] Vancomycin Inj 1,000 MG In NS 250 / 250 250 / 250 Inj 250 ML @ 250 mls/hr IV.SIG Q18H [facility] Rx#:[id number] Oral 720 / 720 Other: # Voids 600 Date of Last Bowel Movement 10/14/17 # Bowel Movements 0 6 10/13/17 20:00 Blood - Peripheral Aerobic Blood Culture - Preliminary gram positive cocci 10/13/17 20:00 Blood - Peripheral Anaerobic Blood Culture - Preliminary Streptococcus species 10/13/17 20:40 Blood - Peripheral Aerobic Blood Culture - Preliminary Streptococcus species 10/13/17 20:40 Blood - Peripheral Anaerobic Blood Culture - Preliminary gram positive cocci Lab - Hematology Results 10/14/17 10/15/17 06:47 07:53 WBC 14.0 H 11.4 H RBC 3.79 L 3.56 L Hgb 10.6 L 9.9 L Hct 32.3 L 30.3 L MCV 85.1 85.1 MCH 28.0 28.0 MCHC 32.9 32.9 RDW 15.0 14.7 Plt Count 459 H 451 H MPV 8.1 8.1 Neut % (Auto) 71.9 H Lymph % (Auto) 18.2 Hancock % (Auto) 7.9 Eos % (Auto) 1.5 Baso % (Auto) 0.5 Neut # (Auto) 10.0 H Lymph # (Auto) 2.5 [place]ancock # (Auto) 1.1 H Eos # (Auto) 0.2 Baso # (Auto) 0.1 WBC Differential . Differential Comment Auto diff final Lab - Chemistry Results 10/14/17 10/14/17 10/15/17 06:47 06:47 07:53 Sodium 142 142 Potassium 3.6 3.5 Chloride 115 H 113 H Carbon Dioxide 18.9 L 17.4 L Anion Gap 8 12 BUN 12 13 Creatinine 0.93 0.89 Estimated GFR 72 L 76 L Random Glucose 94 85 Calcium 8.7 8.7 Total Bilirubin 0.7 AST 25 ALT 27 Alkaline Phosphatase 235 H Ammonia 49 H Total Protein 8.6 H D Albumin 3.4 Imaging: ITS Impressions Soft Tissue Ultrasound 09/15/17 00:00 CONCLUSION: 1. Negative for abscess or fluid collection. Abdomen X-Ray 09/16/17 00:00 CONCLUSION: Nonspecific KUB. Venous Doppler Study 10/09/17 00:00 CONCLUSION: 1. Bilateral upper extremity superficial thrombophlebitis. 2. No evidence of DVT Lumbar Spine X-Ray 10/10/17 00:00 CONCLUSION: Negative trauma study. Shoulder X-Ray 10/10/17 00:00 CONCLUSION: Negative 2 view trauma study. Head CT 10/10/17 20:22 CONCLUSION: 1. No acute hemorrhage, mass or acute infarction. 2. Stable encephalomalacia involving the right middle artery territory consistent with area of old infarction.. . Chest X-Ray 10/15/17 11:11 CONCLUSION: Previous cardiac surgery with cardiomegaly. Mild interstitial edema with minimal parenchymal changes retrocardiac region on the left.. Physical Exam: GENERAL: Looks sick SKIN: Warm to touch and dry. NO rash CARDIOVASCULAR: Regular rate and rhythm. + Pacemaker in place no swelling around it, no fluctuance + tenderness to palpation no redness + 2/6 holosystolic murmur RESPIRATORY: No accessory muscle use. Clear to auscultation. Breath sounds equal bilaterally. GASTROINTESTINAL: Abdomen soft, non-tender, moderately distended ? ascites Hepatic and splenic margins not palpable. MUSCULOSKELETAL: Extremities without clubbing, cyanosis, L forearm is swollen, tender, and has palpable cords No fluctunace NEUROLOGICAL: Awake and alert. No obvious cranial nerve deficits. Motor grossly within normal limits. Five out of 5 muscle strength in the arms and legs. Normal speech. PSYCHIATRIC: Appropriate mood and affect; insight and judgment normal. 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 Pacer lead endocarditis TAO negative TEnderness and swelling of pacemeaker pocket, r/o infeciton New fungemia, C. albicans: 2 D echo negative ? pacer lead infx New fever Strep bacteremia - new LUE thrombosis cont Fluconazole 400 IV cont vanco, dc cefepime repeat blood clx CXR 2D echo LUE US Fu blood clx untill final Ophthalmology consult - pt is non cooperative with exam If another C.albicans fungemia consider pacer lead infection dw RN: there is a suspicious that pt is using drugs
[2017-10-16] MEDS: Vancomycin Inj 1,000 MG in Sodium Chlor 0.9% Inj 250 ML IV.SIG SCH ×2 (02:36→21:17)
[2017-10-16] MEDS: Sodium Bicarbonate 8.4% Inj 50 MEQ in Sod Chloride 0.9% Inj 950 ML IV.CONT SCH ×2 (03:50→15:18)
[2017-10-16] MEDS: Senna/Docusate Sodium 8.6/50 MG Tablet PO SCH ×2 (09:41→21:17)
[2017-10-16] MEDS: levETIRAcetam 500 MG Tablet PO SCH ×2 (09:41→21:14)
[2017-10-16] MEDS: Topiramate 25 MG Tablet PO SCH ×2 (09:41→21:16)
[2017-10-16] MEDS: LORazepam 1 MG Tablet PO SCH ×2 (09:41→21:14)
[2017-10-16] MEDS: FLUoxetine 20 MG Capsule PO SCH (09:41)
--- NOTE | 2017-10-16 09:47 | P.PN ---
Subjective Interval history: generalized body aches, Left FA tender, can't extend arm well. No fevers overnight, states she feels a little better. No sob, no cp, diarrhea. Some tenderness around PPM site but no redness. No acute changes overnight Physical Exam Vital signs: Vital Signs 10/15/17 12:00 10/15/17 13:26 10/15/17 16:00 Temperature 98.7 F 100.6 F H 98.7 F Pulse Rate 67 80 Respiratory Rate 16 17 Blood Pressure 132/62 118/62 Pulse Oximetry 99 99 10/15/17 20:00 10/16/17 00:00 10/16/17 04:00 Temperature 98.1 F 98.2 F 98.2 F Pulse Rate 72 66 68 Respiratory Rate 18 18 18 Blood Pressure 112/51 L 129/72 140/65 Pulse Oximetry 98 99 100 Intake & Output 10/15/17 10/16/17 10/16/17 18:59 06:59 18:59 Intake Total 1690 / 1690 730 / 730 Balance 1690 / 1690 730 / 730 Weight 66.5 kg Intake: IV 1450 / 1450 250 / 250 Sodium Bicarbonate 8.4% Inj 50 1000 / 1000 MEQ In NS Inj 950 ML @ 84 mls/ hr IV.CONT .[id number] [facility] Rx#: [id number] Diflucan 400 mg Premix Bag 200 200 / 200 ML @ 100 mls/hr IV.SIG Q24H [facility] Rx#:[id number] Vancomycin Inj 1,000 MG In NS 250 / 250 250 / 250 Inj 250 ML @ 250 mls/hr IV.SIG Q18H [facility] Rx#:[id number] Oral 240 / 240 480 / 480 Other: # Voids 9 # Urine Diapers 5 Date of Last Bowel Movement 10/15/17 # Bowel Movements 0 9 Narrative: GENERAL: 26-year-old well-developed well-nourished female, ill-appearing SKIN: Warm and dry. HEAD: Normocephalic. EYES: No scleral icterus. No injection or drainage. NECK: Supple, trachea midline. No JVD or lymphadenopathy. CARDIOVASCULAR: Regular rate and rhythm with 5/6 murmurs RESPIRATORY: Breath sounds equal bilaterally. No accessory muscle use. GASTROINTESTINAL: Abdomen soft, non-tender, nondistended. MUSCULOSKELETAL: No cyanosis, or edema. Left FA noted with indurated area, tender to palpation, can't extend arm. BACK: Nontender without obvious deformity. No CVA tenderness. NEURO: Grossly intact Results - Labs CBC & Chem 7: 10/15/17 07:53 10/15/17 07:53 Microbiology 10/13/17 20:00 Blood - Peripheral Aerobic Blood Culture - Preliminary gram positive cocci 10/13/17 20:00 Blood - Peripheral Anaerobic Blood Culture - Preliminary Streptococcus species 10/13/17 20:40 Blood - Peripheral Aerobic Blood Culture - Preliminary Streptococcus species 10/13/17 20:40 Blood - Peripheral Anaerobic Blood Culture - Preliminary gram positive cocci - Imaging Impressions Chest X-Ray 10/15/17 11:11 CONCLUSION: Previous cardiac surgery with cardiomegaly. Mild interstitial edema with minimal parenchymal changes retrocardiac region on the left.. Assessment and Plan - Assessment (1) Fever of unknown origin Code(s): R50.9 - Fever, unspecified Status: Acute (2) H/O mitral valve replacement with mechanical valve Code(s): Z95.2 - Presence of prosthetic heart valve Status: Acute (3) History of tricuspid valve replacement with mechanical valve Code(s): Z95.2 - Presence of prosthetic heart valve Status: Acute (4) Fungemia Code(s): B49 - Unspecified mycosis Status: Acute (5) IVDU (intravenous drug user) Code(s): F19.90 - Other psychoactive substance use, unspecified, uncomplicated Status: Acute (6) Sepsis Code(s): A41.9 - Sepsis, unspecified organism Status: Acute - Plan 26-year-old female with a 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 Presented with malaise and low-grade fevers and confusion. Sepsis with positive blood cultures, 2 out of 2, positive for Streptococcus Also positive for fungemia. ill appearing, sepsis, fevers continue. Now with chills -Appreciate infectious disease input, ordered 2d echo and US left arm Continue with Diflucan, vancomycin. Chest x-ray reviewed, no acute findings ophthalmology input appreciated, exam completed. No evidence of fungal endophthalmitis -feverish, ill appearing, noted acidotics in labs 10/15 started fluids -continue with sodium bicarb gtt at 84/hr Hx of endocarditis, s/p AVR, mechanical valve -cont. with med management supra-therapeutic INR for mech. heart valve -INR 6, given vitamin K 2.5 mg p.o. 10/14. INR pending today -Continue to hold Coumadin -INR goal is 2.5 to 3.5. -Daily INR Hyperammonemia - stable clinically -Monitor ammonia level and continue daily lactulose -Ammonia level 49, improving Mild Hepatic encephalopathy - Resolved Bilateral upper extremity superficial thrombophlebitis -Resume Coumadin when INR between 2.5-3.5 Left FA swelling/induration ? abscess, ? possibly injected substance -US left arm pending Pacemaker site pain -Ultrasound of pacemaker site showed no abscess -Continue Percocet for pain -Pacemaker was interrogated showed no abnormality IVDU -Patient Joselin on 10/10/17 night -Counselled against Labs pending d/w ID Discussed with RN, patient. Continue with present care. (6) Sepsis Qualifiers: Sepsis type: sepsis due to unspecified organism Qualified Code(s): A41.9 - Sepsis, unspecified organism
--- NOTE | 2017-10-16 12:40 | US ---
EXAM DATE: 10/16/2017 12:37 PM EDT AGE/SEX: 26 years / Female INDICATIONS: Left arm, axilla, breast pain that feels like needles. Patient states that the pain mo ves around. CLINICAL DATA: This is the patient's initial encounter. Patient reports that signs and symptoms have been present for 1 day and indicates a pain score of 1/10. MEDICAL/SURGICAL HISTORY: . Endocarditis. CVA. Pacemaker. Mitral and tricuspid valve replacem ent. COMPARISON: [facility] – [place], [place] VENOUS DOPPLER ARM BI, 10/09/2017. . FINDINGS: Sonographic evaluation of the area of symptomatology in the lateral left breast, axillary region and upper medial arm reveals no discrete mass or collection. CONCLUSION: Negative Electronically signed by: Alex Lanier MD 10/16/2017 12:39 PM EDT
--- NOTE | 2017-10-16 12:42 | US ---
EXAM DATE: 10/16/2017 12:36 PM EDT AGE/SEX: 26 years / Female INDICATIONS: Left leg pain, swelling, weakness. CLINICAL DATA: This is the patient's sequela encounter. Patient reports that signs and symptoms have been present for 1 day and indicates a pain score of 1/10. MEDICAL/SURGICAL HISTORY: . Endocarditis. CVA. . Mitral and tricuspid valve replacement. COMPARISON: No prior exams available for comparison. TECHNIQUE: Venous ultrasound of both lower extremities was performed from the inguinal ligament to t he proximal calf. Real-time, color Doppler and spectral tracing, compression and augmentation techni ques were used. FINDINGS: Normal compression of the deep venous system from the inguinal region to the proximal calf . No echogenic clot is seen. Normal response of the venous system to augmentation and respiration. CONCLUSION: 1. The study is negative for lower extremity deep venous thrombosis. Electronically signed by: Shon Cheema MD 10/16/2017 12:40 PM EDT
--- NOTE | 2017-10-16 12:43 | US ---
EXAM DATE: 10/16/2017 12:34 PM EDT AGE/SEX: 26 years / Female INDICATIONS: Left arm pain, history of DVT left arm. CLINICAL DATA: This is the patient's sequela encounter. Patient reports that signs and symptoms have been present for 1 day and indicates a pain score of 1/10. MEDICAL/SURGICAL HISTORY: . Endocarditis. CVA. . Mitral and tricuspid valve replacement. [place] [facility] [place]. . FINDINGS: There is partial thrombosis of the left arm basilic vein. The deep venous structures are p atent and unremarkable. There is a thin elongated fluid echogenicity collection in the lateral aspect of the left mid forearm with surrounding edematous changes in the soft tissues. Other: None. CONCLUSION: 1. Superficial thrombosis of portions of the basilic vein. 2. Phlegmonous area in the lateral left forearm Electronically signed by: Alex Lanier MD 10/16/2017 12:42 PM EDT
--- NOTE | 2017-10-16 14:46 | P.PNID ---
Subjective Remarks: co intermittent fevers, chills 4/4 bottles positive for vir Strep spp con to c/o on HAA cont to c/o pain @ pacer site also pain, swelling in L forearm Fluid presetn on forearm US Antibiotics: Flucaonzol vanco Lines: RUE PIV Allergies/Adverse Reactions: Allergies codeine Allergy (Severe, Verified 09/14/17 21:46) HIVES/VOMITING Fish Containing Products Allergy (Severe, Verified 09/14/17 21:46) THROAT SWOLLEN/HIVES gabapentin Allergy (Severe, Verified 09/14/17 21:46) Hives morphine Allergy (Severe, Verified 09/14/17 21:46) Hives naproxen Allergy (Severe, Verified 09/14/17 21:46) Hives piperacillin Allergy (Severe, Verified 09/14/17 21:46) Hives tazobactam Allergy (Severe, Verified 07/24/17 01:33) Hives adhesive tape Allergy (Verified 09/14/17 21:44) Rash, Localized shellfish derived Allergy (Verified 09/14/17 21:46) Difficulty Breathing Objective Vital Signs 10/15/17 16:00 10/15/17 20:00 10/16/17 00:00 Temperature 98.7 F 98.1 F 98.2 F Pulse Rate 80 72 66 Respiratory Rate 17 18 18 Blood Pressure 118/62 112/51 L 129/72 Pulse Oximetry 99 98 99 10/16/17 04:00 10/16/17 08:00 10/16/17 12:00 Temperature 98.2 F 99.2 F 100.1 F H Pulse Rate 68 62 66 Respiratory Rate 18 16 16 Blood Pressure 140/65 140/63 138/63 Pulse Oximetry 100 99 100 Intake & Output 10/15/17 10/16/17 10/16/17 18:59 06:59 18:59 Intake Total 1690 / 1690 730 / 730 Balance 1690 / 1690 730 / 730 Weight 66.5 kg Intake: IV 1450 / 1450 250 / 250 Sodium Bicarbonate 8.4% Inj 50 1000 / 1000 MEQ In NS Inj 950 ML @ 84 mls/ hr IV.CONT .[id number] [facility] Rx#: [id number] Diflucan 400 mg Premix Bag 200 200 / 200 ML @ 100 mls/hr IV.SIG Q24H [facility] Rx#:[id number] Vancomycin Inj 1,000 MG In NS 250 / 250 250 / 250 Inj 250 ML @ 250 mls/hr IV.SIG Q18H [facility] Rx#:[id number] Oral 240 / 240 480 / 480 Other: # Voids 9 # Urine Diapers 5 Date of Last Bowel Movement 10/15/17 # Bowel Movements 0 9 10/13/17 20:00 Blood - Peripheral Aerobic Blood Culture - Preliminary Viridans streptococcus grp 10/13/17 20:00 Blood - Peripheral Anaerobic Blood Culture - Preliminary Viridans streptococcus grp 10/13/17 20:40 Blood - Peripheral Aerobic Blood Culture - Preliminary Streptococcus species 10/13/17 20:40 Blood - Peripheral Anaerobic Blood Culture - Preliminary Viridans streptococcus grp Lab - Hematology Results 10/15/17 07:53 WBC 11.4 H RBC 3.56 L Hgb 9.9 L Hct 30.3 L MCV 85.1 MCH 28.0 MCHC 32.9 RDW 14.7 Plt Count 451 H MPV 8.1 Lab - Chemistry Results 10/15/17 07:53 Sodium 142 Potassium 3.5 Chloride 113 H Carbon Dioxide 17.4 L Anion Gap 12 BUN 13 Creatinine 0.89 Estimated GFR 76 L Random Glucose 85 Calcium 8.7 Imaging: ITS Impressions Soft Tissue Ultrasound 09/15/17 00:00 CONCLUSION: 1. Negative for abscess or fluid collection. Abdomen X-Ray 09/16/17 00:00 CONCLUSION: Nonspecific KUB. Lumbar Spine X-Ray 10/10/17 00:00 CONCLUSION: Negative trauma study. Shoulder X-Ray 10/10/17 00:00 CONCLUSION: Negative 2 view trauma study. Head CT 10/10/17 20:22 CONCLUSION: 1. No acute hemorrhage, mass or acute infarction. 2. Stable encephalomalacia involving the right middle artery territory consistent with area of old infarction.. . Chest X-Ray 10/15/17 11:11 CONCLUSION: Previous cardiac surgery with cardiomegaly. Mild interstitial edema with minimal parenchymal changes retrocardiac region on the left.. Upper Extremity Ultrasound 10/16/17 00:00 CONCLUSION: Negative Venous Doppler Study 10/16/17 00:00 CONCLUSION: 1. Superficial thrombosis of portions of the basilic vein. 2. Phlegmonous area in the lateral left forearm Physical Exam: GENERAL: Looks sick SKIN: Warm to touch and dry. NO rash CARDIOVASCULAR: Regular rate and rhythm. + Pacemaker in place no swelling around it, no fluctuance + tenderness to palpation no redness + 2/6 holosystolic murmur RESPIRATORY: No accessory muscle use. Clear to auscultation. Breath sounds equal bilaterally. GASTROINTESTINAL: Abdomen soft, non-tender, moderately distended ? ascites Hepatic and splenic margins not palpable. MUSCULOSKELETAL: Extremities without clubbing, cyanosis, L forearm is even more swollen, more tender, and has palpable cords No fluctunace NEUROLOGICAL: Awake and alert. No obvious cranial nerve deficits. Motor grossly within normal limits. Five out of 5 muscle strength in the arms and legs. Normal speech. PSYCHIATRIC: Appropriate mood and affect; insight and judgment normal. 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 Pacer lead endocarditis TAO negative TEnderness and swelling of pacemeaker pocket, r/o infeciton New fungemia, C. albicans: 2 D echo negative ? pacer lead infx New fever Strep bacteremia - new 2 D echo limited. EF decreased mildly LUE thrombosis and phlegmone cont Fluconazole 400 IV cont vanco, Fu blood clx untill final no evidence of fungal endophthalmitis on dilated exam If another C.albicans fungemia consider pacer lead infection Hand surgery consult clive duffy RN dw RN: there is a suspicious that pt is using drugs
[2017-10-16 15:04] LABS: Hematocrit 29.3 % (35.0-46.0); Hemoglobin 9.4 gm/dL (11.6-15.3); Mean Corpuscular HGB Conc 32.1 % (32.0-36.0); Mean Corpuscular Hemoglobin 27.9 pg (27.0-34.0); Mean Corpuscular Volume 86.9 fL (80.0-100.0); Mean Platelet Volume 8.2 fL (7.0-11.0); Platelet Count 417 th/mm3 (150-450); Red Blood Count 3.37 mil/mm3 (4.00-5.30); Red Cell Distribution Width 14.8 % (11.6-17.2); White Blood Count 8.8 th/mm3 (4.0-11.0)
[2017-10-16 15:13] LABS: INR 2.3 Ratio; Prothrombin Time 23.1 sec (9.8-11.6)
[2017-10-16 15:29] LABS: Calcium 8.3 mg/dL (8.5-10.1); Potassium 3.2 meq/L (3.5-5.1)
--- NOTE | 2017-10-16 17:07 | ECHRPT ---
Indication: SEPSIS CONCLUSIONS The left ventricular systolic function is mildly reduced with an estimated ejection fraction in the range of 45- 50%. Normal left ventricular size. Wall thickness is normal. No regional wall motion abnormalities are present. Normally functioning mechanical valve prosthesis. There is considerable artifact shadowing making definitive visualization for vegetations difficult. There is no significant regurgitation or obviou s vegetations noted. Normally functioning mechanical tricuspid valve without vegetation on limited imaging secondary to metallic shadowing. No regurgitation noted. BP: / HR: Rhythm: Sinus MEASUREMENTS (Male / Female) Normal Values Technical Quality:Fair 2D ECHO LV Diastolic Diameter PLAX 5.8 cm 4.2 - 5.9 / 3.9 - 5.3 cm LV Systolic Diameter PLAX 4.4 cm IVS Diastolic Thickness 0.8 cm 0.6 - 1.0 / 0.6 - 0.9 cm LVPW Diastolic Thickness 0.8 cm 0.6 - 1.0 / 0.6 - 0.9 cm LV Relative Wall Thickness 0.3 DOPPLER MV Peak Velocity 205.0 cm/s MV Peak Gradient 16.8 mmHg MV Mean Velocity 108.0 cm/s MV Mean Gradient 6.0 mmHg MV Area PHT 2.8 cm TV Peak Velocity 149.0 cm/s TR Peak Velocity 148.0 cm/s TR Peak Gradient 8.8 mmHg Right Atrial Pressure 10.0 mmHg Pulmonary Artery Systolic Pressu 18.8 mmHg Right Ventricular Systolic Press 18.8 mmHg PV Peak Velocity 133.0 cm/s PV Peak Gradient 7.1 mmHg FINDINGS LEFT VENTRICLE The left ventricular systolic function is mildly reduced with an estimated ejection fraction in the range of 45- 50%. Normal left ventricular size. Wall thickness is normal. No regional wall motion abnormalities are present. RIGHT VENTRICLE Normal right ventricular size and systolic function. LEFT ATRIUM The left atrial size is normal. RIGHT ATRIUM The right atrial size is normal. ATRIAL SEPTUM Normal atrial septal thickness without atrial level shunting by limited color doppler interrogation. AORTA The aortic root and proximal ascending aorta are normal in size on limited imaging. MITRAL VALVE Normally functioning mechanical valve prosthesis. There is considerable artifact shadowing making definitive visualization for vegetations difficult. There is no significant regurgitation or obviou s vegetations noted. AORTIC VALVE Trileaflet aortic valve. No aortic valve stenosis or regurgitation. TRICUSPID VALVE Normally functioning mechanical tricuspid valve without vegetation on limited imaging secondary to metallic shadowing. No regurgitation noted. PULMONARY VALVE No pulmonary valve regurgitation or stenosis. VESSELS The inferior vena cava is normal in size. PERICARDIUM No pericardial effusion. Keanu Lauren MD, FACC (Electronically Signed) Final Date:16 October 2017 17:06
[2017-10-16] MEDS ORDERED: Pharmacy Ordered Lab Info OTHER ONE (20:45)
[2017-10-17] MEDS: Sodium Bicarbonate 8.4% Inj 50 MEQ in Sod Chloride 0.9% Inj 950 ML IV.CONT SCH ×3 (05:22→21:52)
[2017-10-17 08:42] LABS: Hematocrit 26.7 % (35.0-46.0); Hemoglobin 8.9 gm/dL (11.6-15.3); INR 2.2 Ratio; Mean Corpuscular HGB Conc 33.2 % (32.0-36.0); Mean Corpuscular Hemoglobin 28.3 pg (27.0-34.0); Mean Corpuscular Volume 85.3 fL (80.0-100.0); Platelet Count 411 th/mm3 (150-450); Prothrombin Time 21.9 sec (9.8-11.6); Red Blood Count 3.13 mil/mm3 (4.00-5.30); Red Cell Distribution Width 14.9 % (11.6-17.2); White Blood Count 9.5 th/mm3 (4.0-11.0)
[2017-10-17 09:05] LABS: Anion Gap 12 meq/L (5-15); Blood Urea Nitrogen 10 mg/dL (7-18); Calcium 8.2 mg/dL (8.5-10.1); Chloride 111 meq/L (98-107); Potassium 3.2 meq/L (3.5-5.1); Sodium 144 meq/L (136-145)
[2017-10-17] MEDS: Senna/Docusate Sodium 8.6/50 MG Tablet PO SCH ×2 (09:09→20:23)
[2017-10-17] MEDS: Topiramate 25 MG Tablet PO SCH ×2 (09:09→20:23)
[2017-10-17] MEDS: levETIRAcetam 500 MG Tablet PO SCH ×2 (09:09→20:23)
[2017-10-17] MEDS: LORazepam 1 MG Tablet PO SCH ×2 (09:09→20:23)
[2017-10-17] MEDS: FLUoxetine 20 MG Capsule PO SCH (09:09)
[2017-10-17 09:10] LABS: Glomerular Filtration Rate Greater Than 89 mL/min (>89); Glucose,Random 85 mg/dL (74-106)
[2017-10-17] MEDS: Vancomycin Inj 850 MG in Sodium Chlor 0.9% Inj 250 ML IV.SIG SCH ×2 (09:38→23:17)
[2017-10-17] MEDS: Acetaminophen 325 MG Tablet PO PRN (14:16)
--- NOTE | 2017-10-17 14:47 | P.PN ---
Subjective Interval history: Remains febrile, max 100.1. Complains of pain to left forearm, up to axilla. Complains of discomfort around pacemaker site. Diffuse pain chest and back. Having increased watery stools, on lactulose 4 times daily. Physical Exam Vital signs: Vital Signs 10/16/17 16:00 10/16/17 20:00 10/16/17 23:50 Temperature 99.8 F H 98.6 F 97.8 F Pulse Rate 64 62 61 Respiratory Rate 16 18 18 Blood Pressure 143/64 H 146/65 H 131/69 Pulse Oximetry 99 99 100 10/17/17 00:00 10/17/17 04:00 10/17/17 08:00 Temperature 98.3 F 99.2 F Pulse Rate 55 L 70 55 L Respiratory Rate 18 16 Blood Pressure 123/61 144/62 H Pulse Oximetry 100 100 Intake & Output 10/16/17 10/17/17 10/17/17 18:59 06:59 18:59 Intake Total 2160 / 2160 1850 / 1850 Output Total 500 / 500 Balance 1660 / 1660 1850 / 1850 Weight 66.2 kg Intake: IV 1200 / 1200 1250 / 1250 Sodium Bicarbonate 8.4% Inj 50 1000 / 1000 1000 / 1000 MEQ In NS Inj 950 ML @ 84 mls/ hr IV.CONT .[id number] [facility] Rx#: [id number] Diflucan 400 mg Premix Bag 200 200 / 200 ML @ 100 mls/hr IV.SIG Q24H [facility] Rx#:[id number] Vancomycin Inj 1,000 MG In NS 250 / 250 Inj 250 ML @ 250 mls/hr IV.SIG Q18H [facility] Rx#:[id number] Oral 960 / 960 600 / 600 Output: Urine 500 / 500 Other: # Voids 7 Date of Last Bowel Movement 10/16/17 # Bowel Movements 2 7 Narrative: GENERAL: 26-year-old well-developed well-nourished female, ill-appearing SKIN: Warm and dry. HEAD: Normocephalic. EYES: No scleral icterus. No injection or drainage. NECK: Supple, trachea midline. No JVD or lymphadenopathy. CARDIOVASCULAR: Regular rate and rhythm with 5/6 murmurs RESPIRATORY: Breath sounds equal bilaterally. No accessory muscle use. GASTROINTESTINAL: Abdomen soft, non-tender, nondistended. MUSCULOSKELETAL: No cyanosis, or edema. Left FA noted with indurated area, tender to palpation, can't extend arm. BACK: Nontender without obvious deformity. No CVA tenderness. NEURO: Grossly intact Results - Labs CBC & Chem 7: 10/17/17 06:38 10/17/17 06:58 Laboratory Results - last 24 hr 10/16/17 10/16/17 10/16/17 14:32 14:32 14:32 WBC 8.8 RBC 3.37 L Hgb 9.4 L Hct 29.3 L MCV 86.9 MCH 27.9 MCHC 32.1 RDW 14.8 Plt Count 417 MPV 8.2 PT 23.1 H D INR 2.3 Sodium 144 Potassium 3.2 L Chloride 114 H Carbon Dioxide 21.0 Anion Gap 9 BUN 12 Creatinine 0.85 Estimated GFR 80 L Random Glucose 92 Calcium 8.3 L Vancomycin Trough 10/16/17 10/17/17 10/17/17 21:00 06:38 06:38 WBC 9.5 RBC 3.13 L Hgb 8.9 L Hct 26.7 L MCV 85.3 MCH 28.3 MCHC 33.2 RDW 14.9 Plt Count 411 MPV 9.0 PT 21.9 H INR 2.2 Sodium Potassium Chloride Carbon Dioxide Anion Gap BUN Creatinine Estimated GFR Random Glucose Calcium Vancomycin Trough 7.3 10/17/17 06:58 WBC RBC Hgb Hct MCV MCH MCHC RDW Plt Count MPV PT INR Sodium 144 Potassium 3.2 L Chloride 111 H Carbon Dioxide 21.0 Anion Gap 12 BUN 10 Creatinine 0.70 Estimated GFR Greater than 89 Random Glucose 85 Calcium 8.2 L Vancomycin Trough Microbiology 10/16/17 14:32 Blood - Peripheral Aerobic Blood Culture - Preliminary No growth in 1 day 10/16/17 14:32 Blood - Peripheral Anaerobic Blood Culture - Preliminary No growth in 1 day 10/16/17 14:32 Blood - Peripheral Aerobic Blood Culture - Preliminary No growth in 1 day 10/16/17 14:32 Blood - Peripheral Anaerobic Blood Culture - Preliminary No growth in 1 day 10/13/17 20:40 Blood - Peripheral Aerobic Blood Culture - Preliminary Streptococcus species 10/13/17 20:40 Blood - Peripheral Anaerobic Blood Culture - Final Viridans streptococcus grp 10/13/17 20:00 Blood - Peripheral Aerobic Blood Culture - Final Viridans streptococcus grp 10/13/17 20:00 Blood - Peripheral Anaerobic Blood Culture - Final Viridans streptococcus grp Assessment and Plan - Assessment (1) Fever of unknown origin Code(s): R50.9 - Fever, unspecified Status: Acute (2) H/O mitral valve replacement with mechanical valve Code(s): Z95.2 - Presence of prosthetic heart valve Status: Acute (3) History of tricuspid valve replacement with mechanical valve Code(s): Z95.2 - Presence of prosthetic heart valve Status: Acute (4) Fungemia Code(s): B49 - Unspecified mycosis Status: Acute (5) IVDU (intravenous drug user) Code(s): F19.90 - Other psychoactive substance use, unspecified, uncomplicated Status: Acute (6) Sepsis Code(s): A41.9 - Sepsis, unspecified organism Status: Acute - Plan 26-year-old female with a 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 Presented with malaise and low-grade fevers and confusion. Sepsis with positive blood cultures, 2 out of 2, positive for Streptococcus Also positive for fungemia. Remains febrile, ill-appearing. -Appreciate infectious disease input Continue with Diflucan, vancomycin. -Blood cultures 2 out of 2 positive for viridans Streptococcus. Repeat blood cultures 823, negative so far. Chest x-ray reviewed, no acute findings ophthalmology input appreciated, exam completed. No evidence of fungal endophthalmitis -feverish, ill appearing, noted acidotics in labs 10/15 started fluids -Discontinue sodium bicarb drip, change to normal saline at 75 an hour. -Repeat echo results noted, EF 45-50. No definitive vegetation noted. Hx of endocarditis, s/p AVR, mechanical valve -cont. with med management supra-therapeutic INR for mech. heart valve -INR 6, given vitamin K 2.5 mg p.o. 10/14. INR 2.2. -Coumadin 4 mg p.o. today -INR goal is 2.5 to 3.5. -Daily INR -Pharmacy manage Hyperammonemia - stable clinically -Monitor ammonia level and continue daily lactulose -Ammonia level 49, improving -Decrease lactulose to daily, increase stools. Mild Hepatic encephalopathy - Resolved Bilateral upper extremity superficial thrombophlebitis -Continue Coumadin Left FA swelling/induration ? abscess, ? possibly injected substance -US left arm with phlegmonous area. Discussed with Dr. Gurrola. Recommends consultation with hand surgery. -In surgery consultation, pending. Pacemaker site pain -Ultrasound of pacemaker site showed no abscess -Continue Percocet for pain -Pacemaker was interrogated showed no abnormality IVDU -Patient Joselin on 10/10/17 night -Counselled against Labs reviewed, replace potassium Condition guarded Discussed with patient, RN, case management. (6) Sepsis Qualifiers: Sepsis type: sepsis due to unspecified organism Qualified Code(s): A41.9 - Sepsis, unspecified organism
[2017-10-17] MEDS ORDERED: Potassium Chloride 25 MEQ Effervescent Tablet PO ONE (15:00)
--- NOTE | 2017-10-17 18:25 | P.PNID ---
Subjective Remarks: cont to c/o intermittent fevers, chills and LUE pain states she is having difficulty to move her fingers today Repeat BC negative Temps to 102 today 4/4 bottles positive for vir Strep spp Antibiotics: Flucaonzol vanco Lines: RUE PIV Allergies/Adverse Reactions: Allergies codeine Allergy (Severe, Verified 09/14/17 21:46) HIVES/VOMITING Fish Containing Products Allergy (Severe, Verified 09/14/17 21:46) THROAT SWOLLEN/HIVES gabapentin Allergy (Severe, Verified 09/14/17 21:46) Hives morphine Allergy (Severe, Verified 09/14/17 21:46) Hives naproxen Allergy (Severe, Verified 09/14/17 21:46) Hives piperacillin Allergy (Severe, Verified 09/14/17 21:46) Hives tazobactam Allergy (Severe, Verified 07/24/17 01:33) Hives adhesive tape Allergy (Verified 09/14/17 21:44) Rash, Localized shellfish derived Allergy (Verified 09/14/17 21:46) Difficulty Breathing Objective Vital Signs 10/16/17 20:00 10/16/17 23:50 10/17/17 00:00 Temperature 98.6 F 97.8 F Pulse Rate 62 61 55 L Respiratory Rate 18 18 Blood Pressure 146/65 H 131/69 Pulse Oximetry 99 100 10/17/17 04:00 10/17/17 08:00 10/17/17 12:00 Temperature 98.3 F 99.2 F 102.0 F H Pulse Rate 70 55 L 78 Respiratory Rate 18 16 18 Blood Pressure 123/61 144/62 H 138/63 Pulse Oximetry 100 100 99 Intake & Output 10/16/17 10/17/17 10/17/17 18:59 06:59 18:59 Intake Total 2160 / 2160 1850 / 1850 Output Total 500 / 500 Balance 1660 / 1660 1850 / 1850 Weight 66.2 kg Intake: IV 1200 / 1200 1250 / 1250 Sodium Bicarbonate 8.4% Inj 50 1000 / 1000 1000 / 1000 MEQ In NS Inj 950 ML @ 84 mls/ hr IV.CONT .[id number] [facility] Rx#: [id number] Diflucan 400 mg Premix Bag 200 200 / 200 ML @ 100 mls/hr IV.SIG Q24H [facility] Rx#:[id number] Vancomycin Inj 1,000 MG In NS 250 / 250 Inj 250 ML @ 250 mls/hr IV.SIG Q18H [facility] Rx#:[id number] Oral 960 / 960 600 / 600 Output: Urine 500 / 500 Other: # Voids 7 Date of Last Bowel Movement 10/16/17 # Bowel Movements 2 7 10/13/17 20:40 Blood - Peripheral Aerobic Blood Culture - Final Viridans streptococcus grp 10/13/17 20:40 Blood - Peripheral Anaerobic Blood Culture - Final Viridans streptococcus [facility] 10/16/17 14:32 Blood - Peripheral Aerobic Blood Culture - Preliminary No growth in 1 day 10/16/17 14:32 Blood - Peripheral Anaerobic Blood Culture - Preliminary No growth in 1 day 10/16/17 14:32 Blood - Peripheral Aerobic Blood Culture - Preliminary No growth in 1 day 10/16/17 14:32 Blood - Peripheral Anaerobic Blood Culture - Preliminary No growth in 1 day 10/13/17 20:00 Blood - Peripheral Aerobic Blood Culture - Final Viridans streptococcus [facility] 10/13/17 20:00 Blood - Peripheral Anaerobic Blood Culture - Final Viridans streptococcus [facility] Lab - Hematology Results 10/16/17 10/17/17 14:32 06:38 WBC 8.8 9.5 RBC 3.37 L 3.13 L Hgb 9.4 L 8.9 L Hct 29.3 L 26.7 L MCV 86.9 85.3 MCH 27.9 28.3 MCHC 32.1 33.2 RDW 14.8 14.9 Plt Count 417 411 MPV 8.2 9.0 Lab - Chemistry Results 10/16/17 10/17/17 14:32 06:58 Sodium 144 144 Potassium 3.2 L 3.2 L Chloride 114 H 111 H Carbon Dioxide 21.0 21.0 Anion Gap 9 12 BUN 12 10 Creatinine 0.85 0.70 Estimated GFR 80 L Greater than 89 Random Glucose 92 85 Calcium 8.3 L 8.2 L Imaging: ITS Impressions Soft Tissue Ultrasound 09/15/17 00:00 CONCLUSION: 1. Negative for abscess or fluid collection. Abdomen X-Ray 09/16/17 00:00 CONCLUSION: Nonspecific KUB. Lumbar Spine X-Ray 10/10/17 00:00 CONCLUSION: Negative trauma study. Shoulder X-Ray 10/10/17 00:00 CONCLUSION: Negative 2 view trauma study. Head CT 10/10/17 20:22 CONCLUSION: 1. No acute hemorrhage, mass or acute infarction. 2. Stable encephalomalacia involving the right middle artery territory consistent with area of old infarction.. . Chest X-Ray 10/15/17 11:11 CONCLUSION: Previous cardiac surgery with cardiomegaly. Mild interstitial edema with minimal parenchymal changes retrocardiac region on the left.. Upper Extremity Ultrasound 10/16/17 00:00 CONCLUSION: Negative Venous Doppler Study 10/16/17 00:00 CONCLUSION: 1. Superficial thrombosis of portions of the basilic vein. 2. Phlegmonous area in the lateral left forearm Physical Exam: GENERAL: Looks sick toxic appearing SKIN: Warm to touch and dry. NO rash HEENT: no oral thrush non icteric moist mucosae NECK; no JVD, supple CARDIOVASCULAR: Regular rate and rhythm. + Pacemaker in place no swelling around it, no fluctuance + tenderness to palpation no redness + 2/6 holosystolic murmur RESPIRATORY: No accessory muscle use. Clear to auscultation. Breath sounds equal bilaterally. GASTROINTESTINAL: Abdomen soft, non-tender, moderately distended ? ascites Hepatic and splenic margins not palpable. MUSCULOSKELETAL: Extremities without clubbing, cyanosis, L forearm is even more swollen, more tender, and has palpable cords very tender no palpable fluctiuance NEUROLOGICAL: Awake and alert. No obvious cranial nerve deficits. Motor grossly within normal limits. Five out of 5 muscle strength in the arms and legs. Normal speech. PSYCHIATRIC: Appropriate mood and affect; insight and judgment normal. 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 Pacer lead endocarditis TAO negative TEnderness and swelling of pacemeaker pocket, r/o infeciton New fungemia, C. albicans: 2 D echo negative ? pacer lead infx New sepsis: source is likely forearm Strep bacteremia - new 2 D echo limited. EF decreased mildly LUE thrombosis and phlegmone, clinically wotrase Pt is septic cont Fluconazole 400 IV cont vanco, Add meropenem allergic to Zosyn Repeat blood clx Fu blood clx untill final no evidence of fungal endophthalmitis on dilated exam If another C.albicans fungemia consider pacer lead infection Awaiting hand surgery consult clive Coronado - he will see pt today; clive RN: there is a suspicious that pt is using drugs
--- NOTE | 2017-10-17 22:48 | CT ---
EXAM DATE: 10/17/2017 10:39 PM EDT AGE/SEX: 26 years / Female INDICATIONS: Evaluate for abscess. CLINICAL DATA: This is the patient's initial encounter. Patient reports that signs and symptoms have been present for 4 - 6 days and indicates a pain score of 6/10. MEDICAL/SURGICAL HISTORY: Cerebrovascular disease. Cardiovascular disease. None. RADIATION DOSE: 15.58 CTDI (mGy) COMPARISON: No prior exams available for comparison. TECHNIQUE: Multiple contiguous axial images were acquired using a multi-row detector CT scanner afte r the intravenous administration of 61.0 ml Omnipaque 350 (iohexol) nonionic water-soluble contrast as a single exam dose. Multiplanar reconstruction was performed in the sagittal and coronal planes. Using automated exposure control and adjustment of the mA and/or kV according to patient size, radi ation dose was kept as low as reasonably achievable to obtain optimal diagnostic quality images. DIC OM format image data is available electronically for review and comparison. FINDINGS: There is an abnormal appearance to the brachioradialis muscle with an elongated irregular margin area of hypodensity within the central substance which measures 1.3 cm in width and 3 cm in length. There is no gas within the hypodensity. The margins of the muscles are smooth. No induration of the subcut aneous fat. No deviation of the radial artery. Bony structures are grossly intact. CONCLUSION: 1. Nonenhancing hypodensity within the proximal central substance of the brachial radialis muscle turner ggestive of either abscess or hematoma. Electronically signed by: Andrey Virk MD 10/17/2017 10:46 PM EDT
[2017-10-18] MEDS: Sodium Bicarbonate 8.4% Inj 50 MEQ in Sod Chloride 0.9% Inj 950 ML IV.CONT SCH (03:03)
[2017-10-18] MEDS ORDERED: Pharmacy Ordered Lab Info OTHER ONE (08:45)
[2017-10-18 09:40] LABS: Hematocrit 25.8 % (35.0-46.0); Hemoglobin 8.4 gm/dL (11.6-15.3); Mean Corpuscular HGB Conc 32.6 % (32.0-36.0); Mean Corpuscular Hemoglobin 28.1 pg (27.0-34.0); Mean Corpuscular Volume 86.2 fL (80.0-100.0); Mean Platelet Volume 8.9 fL (7.0-11.0); Platelet Count 387 th/mm3 (150-450); Red Blood Count 2.99 mil/mm3 (4.00-5.30); Red Cell Distribution Width 14.8 % (11.6-17.2); White Blood Count 8.2 th/mm3 (4.0-11.0)
[2017-10-18 09:49] LABS: INR 2.4 Ratio; Prothrombin Time 24.6 sec (9.8-11.6)
[2017-10-18] MEDS: Topiramate 25 MG Tablet PO SCH ×2 (09:49→21:18)
[2017-10-18] MEDS: levETIRAcetam 500 MG Tablet PO SCH ×2 (09:49→21:18)
[2017-10-18] MEDS: Vancomycin Inj 850 MG in Sodium Chlor 0.9% Inj 250 ML IV.SIG SCH (09:50)
[2017-10-18] MEDS: LORazepam 1 MG Tablet PO SCH ×2 (09:50→21:18)
[2017-10-18] MEDS: FLUoxetine 20 MG Capsule PO SCH (09:50)
[2017-10-18] MEDS: Senna/Docusate Sodium 8.6/50 MG Tablet PO SCH ×2 (09:50→21:18)
[2017-10-18 10:05] LABS: Anion Gap 8 meq/L (5-15); Blood Urea Nitrogen 7 mg/dL (7-18); Calcium 8.2 mg/dL (8.5-10.1); Chloride 111 meq/L (98-107); Glomerular Filtration Rate Greater Than 89 mL/min (>89); Glucose,Random 79 mg/dL (74-106); Potassium 3.7 meq/L (3.5-5.1); Sodium 142 meq/L (136-145)
--- NOTE | 2017-10-18 13:49 | P.PN ---
Subjective Interval history: follow up for sepsis, hx IVDU: Temp max 102, c/o generalized pain, c/o significant pain to left FA, no cough, no sputum, less stools, no n/v. Went for CT of left arm yesterday. Physical Exam Vital signs: Vital Signs 10/17/17 16:00 10/17/17 20:00 10/18/17 00:00 Temperature 102 F H 99.5 F 98.6 F Pulse Rate 79 62 60 Respiratory Rate 18 18 20 Blood Pressure 135/63 106/54 L 118/57 L Pulse Oximetry 98 99 99 10/18/17 04:00 10/18/17 08:00 10/18/17 12:00 Temperature 98.6 F 98.6 F 97.8 F Pulse Rate 53 L 68 61 Respiratory Rate 18 18 18 Blood Pressure 118/65 130/67 135/62 Pulse Oximetry 99 100 99 Intake & Output 10/17/17 10/18/17 10/18/17 18:59 06:59 18:59 Intake Total 1158.5 / 1158.5 2458.5 / 2458.5 258.50 / 258.50 Balance 1158.5 / 1158.5 2458.5 / 2458.5 258.50 / 258.50 Weight 69.2 kg Intake: IV 1158.5 / 1158.5 1458.5 / 1458.5 258.50 / 258.50 Sodium Bicarbonate 8.4% Inj 50 700 / 700 1000 / 1000 MEQ In NS Inj 950 ML @ 84 mls/ hr IV.CONT .[id number] [facility] Rx#: [id number] Diflucan 400 mg Premix Bag 200 200 / 200 ML @ 100 mls/hr IV.SIG Q24H [facility] Rx#:[id number] Merrem Inj 1,000 MG In NS Inj 200 / 200 100 ML @ 200 mls/hr IV.SIG Q8H [facility] Rx#:[id number] Vancomycin Inj 850 MG In NS Inj 258.5 / 258.5 258.5 / 258.5 258.50 / 258.50 250 ML @ 250 mls/hr IV.SIG Q12H [facility] Rx#:[id number] Oral 1000 / 1000 Other: # Voids 5 # Incontinent Voids 1 Date of Last Bowel Movement 10/18/17 Narrative: GENERAL: 26-year-old well-developed well-nourished female, ill-appearing SKIN: Warm and dry. HEAD: Normocephalic. EYES: No scleral icterus. No injection or drainage. NECK: Supple, trachea midline. No JVD or lymphadenopathy. CARDIOVASCULAR: Regular rate and rhythm with 5/6 murmurs RESPIRATORY: Breath sounds equal bilaterally. No accessory muscle use. GASTROINTESTINAL: Abdomen soft, non-tender, nondistended. MUSCULOSKELETAL: No cyanosis, or edema. Left FA noted with indurated area, tender to palpation, can't extend arm. BACK: Nontender without obvious deformity. No CVA tenderness. NEURO: Grossly intact Results - Labs CBC & Chem 7: 10/18/17 08:14 10/18/17 08:14 Laboratory Results - last 24 hr 10/17/17 10/18/17 10/18/17 06:58 08:14 08:14 WBC 8.2 RBC 2.99 L Hgb 8.4 L Hct 25.8 L MCV 86.2 MCH 28.1 MCHC 32.6 RDW 14.8 Plt Count 387 MPV 8.9 PT 24.6 H INR 2.4 Sodium Potassium Chloride Carbon Dioxide Anion Gap BUN Creatinine Estimated GFR Random Glucose Calcium Beta HCG, Qual Less than 1.0 Vancomycin Trough 10/18/17 10/18/17 08:14 08:14 WBC RBC Hgb Hct MCV MCH MCHC RDW Plt Count MPV PT INR Sodium 142 Potassium 3.7 Chloride 111 H Carbon Dioxide 23.0 Anion Gap 8 BUN 7 Creatinine 0.62 Estimated GFR Greater than 89 Random Glucose 79 Calcium 8.2 L Beta HCG, Qual Vancomycin Trough 11.6 H Microbiology 10/17/17 20:06 Blood - Peripheral Aerobic Blood Culture - Preliminary No growth in 1 day 10/17/17 20:06 Blood - Peripheral Anaerobic Blood Culture - Preliminary No growth in 1 day 10/17/17 20:01 Blood - Peripheral Aerobic Blood Culture - Preliminary No growth in 1 day 10/17/17 20:01 Blood - Peripheral Anaerobic Blood Culture - Preliminary No growth in 1 day 10/16/17 14:32 Blood - Peripheral Aerobic Blood Culture - Preliminary No growth in 2 days 10/16/17 14:32 Blood - Peripheral Anaerobic Blood Culture - Preliminary No growth in 2 days 10/16/17 14:32 Blood - Peripheral Aerobic Blood Culture - Preliminary No growth in 2 days 10/16/17 14:32 Blood - Peripheral Anaerobic Blood Culture - Preliminary No growth in 2 days 10/13/17 20:40 Blood - Peripheral Aerobic Blood Culture - Final Viridans streptococcus [facility] 10/13/17 20:40 Blood - Peripheral Anaerobic Blood Culture - Final Viridans streptococcus [facility] 10/13/17 20:00 Blood - Peripheral Aerobic Blood Culture - Final Viridans streptococcus [facility] 10/13/17 20:00 Blood - Peripheral Anaerobic Blood Culture - Final Viridans streptococcus [facility] - Imaging Impressions Forearm CT 10/17/17 00:00 CONCLUSION: 1. Nonenhancing hypodensity within the proximal central substance of the brachial radialis muscle suggestive of either abscess or hematoma. Assessment and Plan - Assessment (1) Fever of unknown origin Code(s): R50.9 - Fever, unspecified Status: Acute (2) H/O mitral valve replacement with mechanical valve Code(s): Z95.2 - Presence of prosthetic heart valve Status: Acute (3) History of tricuspid valve replacement with mechanical valve Code(s): Z95.2 - Presence of prosthetic heart valve Status: Acute (4) Fungemia Code(s): B49 - Unspecified mycosis Status: Acute (5) IVDU (intravenous drug user) Code(s): F19.90 - Other psychoactive substance use, unspecified, uncomplicated Status: Acute (6) Sepsis Code(s): A41.9 - Sepsis, unspecified organism Status: Acute - Plan 26-year-old female with a 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 Presented with malaise and low-grade fevers and confusion. Sepsis with positive blood cultures, 2 out of 2, positive for Streptococcus Also positive for fungemia. Remains febrile, ill-appearing. -Appreciate infectious disease input Continue with Diflucan, vancomycin. -Blood cultures 2 out of 2 positive for viridans Streptococcus. Repeat blood cultures 823, negative so far. Chest x-ray reviewed, no acute findings ophthalmology input appreciated, exam completed. No evidence of fungal endophthalmitis -feverish, ill appearing, noted acidotics in labs 10/15 started fluids -Discontinue sodium bicarb drip, change to normal saline at 75 an hour. -Repeat echo results noted, EF 45-50. No definitive vegetation noted. Nonenhancing hypodensity within the proximal central substance of the brachial radialis muscle suggestive of either abscess or hematoma. Hx of endocarditis, s/p AVR, mechanical valve -cont. with med management supra-therapeutic INR for mech. heart valve -INR 6, given vitamin K 2.5 mg p.o. 10/14. -INR 2.4 today, continue Coumadin per pharmacy dosing -INR goal is 2.5 to 3.5. -Daily INR -Pharmacy manage Hyperammonemia - stable clinically -Monitor ammonia level and continue daily lactulose -Ammonia level 49, improving -Decrease lactulose to daily, increase stools. Mild Hepatic encephalopathy - Resolved Bilateral upper extremity superficial thrombophlebitis -Continue Coumadin Left FA swelling/induration ? abscess, ? possibly injected substance -US left arm with phlegmonous area. Discussed with Dr. Gurrola. Recommends consultation with hand surgery. -In surgery consultation, pending. Pacemaker site pain -Ultrasound of pacemaker site showed no abscess -Continue Percocet for pain -Pacemaker was interrogated showed no abnormality IVDU -Patient Joselin on 10/10/17 night -Counselled against Labs reviewed, replace potassium Condition guarded Discussed with patient, RN, case management. (6) Sepsis Qualifiers: Sepsis type: sepsis due to unspecified organism Qualified Code(s): A41.9 - Sepsis, unspecified organism
[2017-10-18] MEDS: Sod Chloride 0.9% Inj 1,000 ML IV.CONT SCH (14:43)
--- NOTE | 2017-10-18 16:22 | P.PNID ---
Subjective Remarks: no fever today; T max for 24 hrs 102 F co L forearm pain - about the same CT showed 1.5 x 3 cm L forearm abscess dw Dr Oliveira who recommended conservative mngmnt Antibiotics: Flucaonzol vanco Lines: RUE PIV Allergies/Adverse Reactions: Allergies codeine Allergy (Severe, Verified 09/14/17 21:46) HIVES/VOMITING Fish Containing Products Allergy (Severe, Verified 09/14/17 21:46) THROAT SWOLLEN/HIVES gabapentin Allergy (Severe, Verified 09/14/17 21:46) Hives morphine Allergy (Severe, Verified 09/14/17 21:46) Hives naproxen Allergy (Severe, Verified 09/14/17 21:46) Hives piperacillin Allergy (Severe, Verified 09/14/17 21:46) Hives tazobactam Allergy (Severe, Verified 07/24/17 01:33) Hives adhesive tape Allergy (Verified 09/14/17 21:44) Rash, Localized shellfish derived Allergy (Verified 09/14/17 21:46) Difficulty Breathing Objective Vital Signs 10/17/17 20:00 10/18/17 00:00 10/18/17 04:00 Temperature 99.5 F 98.6 F 98.6 F Pulse Rate 62 60 53 L Respiratory Rate 18 20 18 Blood Pressure 106/54 L 118/57 L 118/65 Pulse Oximetry 99 99 99 10/18/17 08:00 10/18/17 12:00 Temperature 98.6 F 97.8 F Pulse Rate 68 61 Respiratory Rate 18 18 Blood Pressure 130/67 135/62 Pulse Oximetry 100 99 Intake & Output 10/17/17 10/18/17 10/18/17 18:59 06:59 18:59 Intake Total 1158.5 / 1158.5 2458.5 / 2458.5 1258.50 / 1258.50 Balance 1158.5 / 1158.5 2458.5 / 2458.5 1258.50 / 1258.50 Weight 69.2 kg Intake: IV 1158.5 / 1158.5 1458.5 / 1458.5 1258.50 / 1258.50 Sodium Bicarbonate 8.4% Inj 50 700 / 700 1000 / 1000 900 / 900 MEQ In NS Inj 950 ML @ 84 mls/ hr IV.CONT .[id number] [facility] Rx#: [id number] Diflucan 400 mg Premix Bag 200 200 / 200 ML @ 100 mls/hr IV.SIG Q24H [facility] Rx#:[id number] Merrem Inj 1,000 MG In NS Inj 200 / 200 100 / 100 100 ML @ 200 mls/hr IV.SIG Q8H [facility] Rx#:[id number] Vancomycin Inj 850 MG In NS Inj 258.5 / 258.5 258.5 / 258.5 258.50 / 258.50 250 ML @ 250 mls/hr IV.SIG Q12H [facility] Rx#:[id number] Oral 1000 / 1000 Other: # Voids 5 # Incontinent Voids 1 Date of Last Bowel Movement 10/18/17 10/17/17 20:06 Blood - Peripheral Aerobic Blood Culture - Preliminary No growth in 1 day 10/17/17 20:06 Blood - Peripheral Anaerobic Blood Culture - Preliminary No growth in 1 day 10/17/17 20:01 Blood - Peripheral Aerobic Blood Culture - Preliminary No growth in 1 day 10/17/17 20:01 Blood - Peripheral Anaerobic Blood Culture - Preliminary No growth in 1 day 10/16/17 14:32 Blood - Peripheral Aerobic Blood Culture - Preliminary No growth in 2 days 10/16/17 14:32 Blood - Peripheral Anaerobic Blood Culture - Preliminary No growth in 2 days 10/16/17 14:32 Blood - Peripheral Aerobic Blood Culture - Preliminary No growth in 2 days 10/16/17 14:32 Blood - Peripheral Anaerobic Blood Culture - Preliminary No growth in 2 days 10/13/17 20:40 Blood - Peripheral Aerobic Blood Culture - Final Viridans streptococcus [facility] 10/13/17 20:40 Blood - Peripheral Anaerobic Blood Culture - Final Viridans streptococcus [facility] 10/13/17 20:00 Blood - Peripheral Aerobic Blood Culture - Final Viridans streptococcus [facility] 10/13/17 20:00 Blood - Peripheral Anaerobic Blood Culture - Final Viridans streptococcus [facility] Lab - Hematology Results 10/17/17 10/18/17 06:38 08:14 WBC 9.5 8.2 RBC 3.13 L 2.99 L Hgb 8.9 L 8.4 L Hct 26.7 L 25.8 L MCV 85.3 86.2 MCH 28.3 28.1 MCHC 33.2 32.6 RDW 14.9 14.8 Plt Count 411 387 MPV 9.0 8.9 Lab - Chemistry Results 10/17/17 10/17/17 10/18/17 06:58 06:58 08:14 Sodium 144 142 Potassium 3.2 L 3.7 Chloride 111 H 111 H Carbon Dioxide 21.0 23.0 Anion Gap 12 8 BUN 10 7 Creatinine 0.70 0.62 Estimated GFR Greater than 89 Greater than 89 Random Glucose 85 79 Calcium 8.2 L 8.2 L Beta HCG, Qual Less than 1.0 Imaging: ITS Impressions Soft Tissue Ultrasound 09/15/17 00:00 CONCLUSION: 1. Negative for abscess or fluid collection. Abdomen X-Ray 09/16/17 00:00 CONCLUSION: Nonspecific KUB. Lumbar Spine X-Ray 10/10/17 00:00 CONCLUSION: Negative trauma study. Shoulder X-Ray 10/10/17 00:00 CONCLUSION: Negative 2 view trauma study. Head CT 10/10/17 20:22 CONCLUSION: 1. No acute hemorrhage, mass or acute infarction. 2. Stable encephalomalacia involving the right middle artery territory consistent with area of old infarction.. . Chest X-Ray 10/15/17 11:11 CONCLUSION: Previous cardiac surgery with cardiomegaly. Mild interstitial edema with minimal parenchymal changes retrocardiac region on the left.. Upper Extremity Ultrasound 10/16/17 00:00 CONCLUSION: Negative Venous Doppler Study 10/16/17 00:00 CONCLUSION: 1. Superficial thrombosis of portions of the basilic vein. 2. Phlegmonous area in the lateral left forearm Forearm CT 10/17/17 00:00 CONCLUSION: 1. Nonenhancing hypodensity within the proximal central substance of the brachial radialis muscle suggestive of either abscess or hematoma. Physical Exam: GENERAL: Looks better SKIN: Warm to touch and dry. NO rash HEENT: no oral thrush non icteric moist mucosae NECK; no JVD, supple CARDIOVASCULAR: Regular rate and rhythm. Pacemaker in place no swelling around it, no fluctuance + tenderness to palpation no redness + 3/6 holosystolic murmur RESPIRATORY: No accessory muscle use. Clear to auscultation. Breath sounds equal bilaterally. GASTROINTESTINAL: Abdomen soft, non-tender, moderately distended ? ascites Hepatic and splenic margins not palpable. MUSCULOSKELETAL: Extremities without clubbing, cyanosis, L forearm is less swollen, tender, and has palpable cords no palpable fluctuance NEUROLOGICAL: Awake and alert. No obvious cranial nerve deficits. Motor grossly within normal limits. Five out of 5 muscle strength in the arms and legs. Normal speech. PSYCHIATRIC: Appropriate mood and affect; insight and judgment normal. 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 Pacer lead endocarditis TAO negative TEnderness and swelling of pacemeaker pocket, r/o infeciton New fungemia, C. albicans: 2 D echo negative ? pacer lead infx New sepsis: source is likely forearm Strep bacteremia - new 2 D echo limited. EF decreased mildly LUE thrombosis and phlegmone, clinically wotrase fever resolved - BC neg @ 1 day cont Fluconazole 400 IV cont vanco, cont meropenem allergic to Zosyn fu repeat blood clx Fu blood clx untill final no evidence of fungal endophthalmitis on dilated exam If another C.albicans fungemia consider pacer lead infection hand surgery ff: recommends abx , no surgery clive duffy RN: there is a suspicious that pt is using drugs
--- NOTE | 2017-10-18 17:09 | P.CON ---
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 Her family had found her on the floor yesterday evening shaking and disoriented prompting admission. Her main complaint on admission outside of fever is that she has exquisite pain and softness around her pacemaker site. She was hospitalized approximately 6 weeks ago for a similar episode involving fever. At that time extensive workup including TAO revealed no evidence of cardiac vegetations and she was sent home following a completed course of IV antibiotics in the hospital. Hand surgery was consulted for left forearm pain. Patient reports that the pain is significantly improved over the last 2 days. She was unable to move her hand and fingers and now she can. Also it feels significantly less hot and painful to the touch per the patient. Patient's white count is down to normal for several days from a high of 14. Patient did spike 102 fevers yesterday, though the nurses report that these intermittent fevers seem to coincide with finding drug paraphernalia in the bathroom. The nurses expressed concern that the patient is injecting in her bathroom, potentially causing these fevers. Except as noted in the HPI review of systems negative to presenting complaint Family history noncontributory to presenting complaint Medication list reviewed Allergies see list - History History Provided By: Patient - Medical History Medical History: Medical History (Last Updated 09/14/17 @ 21:45 by Yola Cabrera) SBE (subacute bacterial endocarditis) Seizure as late effect of cerebrovascular accident (CVA) Stroke - Surgical History Surgical History: Surgical History (Last Updated 09/14/17 @ 21:46 by Yola Cabrera) H/O mitral valve replacement with mechanical valve History of tricuspid valve replacement with mechanical valve - Tobacco History Second Hand Smoke Exposure: No Tobacco Use In Past 30 Days: No Smoking Status: Never smoker Tobacco Type: Cigarettes - Alcohol History How Often Do You Have a Drink Containing Alcohol: Monthly or less - Substance Use History Substance History: Past History - Substance Use Type Opiates Status: Sustained Remission Route Used: By Mouth, Intravenously Last Used: 2013 Reason for Use: Get High PMFSH - History History Provided By: Patient - Medical History Medical History: Medical History (Last Reviewed 09/25/17 @ 09:27 by Tonny Zamora RN) SBE (subacute bacterial endocarditis) Seizure as late effect of cerebrovascular accident (CVA) Stroke - Surgical History Surgical History: Surgical History (Last Reviewed 09/25/17 @ 09:27 by Tonny Zamora RN) H/O mitral valve replacement with mechanical valve History of tricuspid valve replacement with mechanical valve - Tobacco History Second Hand Smoke Exposure: No Tobacco Use In Past 30 Days: No Smoking Status: Never smoker Tobacco Type: Cigarettes - Alcohol History How Often Do You Have a Drink Containing Alcohol: Monthly or less - Substance Use History Substance History: Past History - Substance Use Type Opiates Status: Sustained Remission Route Used: Intravenously Last Used: 2013 Reason for Use: Feels Good - Travel History Recent Travel in the [place] Within the Last 8 Weeks: No Recent Travel Out of the Country Within the Last 8 Weeks: No - Immunization History Tetanus Immunization: <5 Years Hx Influenza Vaccine This Season: No Medications and Allergies Active Medications: Active Medications Acetaminophen (Tylenol) 650 mg PO Q4H PRN PRN Reason: temp>100.4, pain 1-5 Last Admin: 10/17/17 14:16 Dose: 650 mg Al Hydroxide/Mg Hydroxide (Milk Of Magnesia Liq) 30 ml PO Q12H PRN PRN Reason: Mild Constipation Aspirin (Aspirin Chew) 81 mg PO DAILY [facility] Last Admin: 10/10/17 08:08 Dose: 81 mg Bisacodyl (Dulcolax Supp) 10 mg RECTAL DAILY PRN PRN Reason: SEVERE CONSITIPATION Diphenhydramine HCl (Benadryl) 25 mg PO HS PRN PRN Reason: INSOMNIA Last Admin: 09/29/17 03:07 Dose: 25 mg Fluoxetine HCl (Prozac) 20 mg PO DAILY [facility] Last Admin: 10/18/17 09:50 Dose: 20 mg Hydromorphone HCl (Dilaudid) 2 mg PO Q8HR PRN PRN Reason: Pain 3 to 10 Last Admin: 10/18/17 13:52 Dose: 2 mg Fluconazole (Diflucan 400 Mg Premix Bag) 200 mls @ 100 mls/hr IV.SIG Q24H [facility] Last Admin: 10/18/17 14:44 Dose: 100 mls/hr Meropenem 1,000 mg/ Sodium (Chloride) 100 mls @ 200 mls/hr IV.SIG Q8H [facility] Last Infusion: 10/18/17 13:00 Dose: Infused Vancomycin HCl 1,250 mg/ (Sodium Chloride) 262.5 mls @ 250 mls/hr IV.SIG Q12H [facility] Sodium Chloride (Ns Inj) 1,000 mls @ 50 mls/hr IV.CONT .Q20H [facility] Last Admin: 10/18/17 14:43 Dose: 50 mls/hr Lactulose (Lactulose Liq) 30 ml PO DAILY [facility] Last Admin: 10/18/17 09:50 Dose: 30 ml Levetiracetam (Keppra) 500 mg PO BID [facility] Last Admin: 10/18/17 09:49 Dose: 500 mg Lorazepam (Ativan) 1 mg PO BID [facility] Last Admin: 10/18/17 09:50 Dose: 1 mg Miscellaneous Information ([facility] Ordered Lab Info) 0 each OTHER ONCE ONE Stop: 10/19/17 20:46 Pantoprazole Sodium (Protonix) 40 mg PO DAILY [facility] Last Admin: 10/18/17 09:50 Dose: 40 mg Pharmacy Profile Note (Coumadin Consult Pharmacy) 1 each OTHER ONCE [facility] Pharmacy Profile Note (Vancomycin Consult Pharmacy) 1 each OTHER UNSCH PRN PRN Reason: Pharmacy to dose Promethazine HCl (Phenergan) 25 mg PO Q6H PRN PRN Reason: NAUSEA OR VOMITING Last Admin: 10/14/17 21:57 Dose: 25 mg Senna/Docusate Sodium (Mariam-Colace) 1 tab PO BID [facility] Last Admin: 10/18/17 09:50 Dose: Not Given Sennosides (Senokot) 17.2 mg PO Q12H PRN PRN Reason: Moderate Constipation Topiramate (Topamax) 50 mg PO BID [facility] Last Admin: 10/18/17 09:49 Dose: 50 mg Trazodone HCl (Desyrel) 100 mg PO HS PRN PRN Reason: INSOMNIA Last Admin: 10/12/17 22:13 Dose: 100 mg Warfarin Sodium (Coumadin) 4 mg PO DAILY@1600 [facility] Last Admin: 10/17/17 15:47 Dose: 4 mg Allergies Allergy/AdvReac Type Severity Reaction Status Date / Time codeine Allergy Severe HIVES/VOMIT Verified 09/14/17 21:46 ING Fish Containing Products Allergy Severe THROAT Verified 09/14/17 21:46 SWOLLEN/HIVES gabapentin Allergy Severe Hives Verified 09/14/17 21:46 morphine Allergy Severe Hives Verified 09/14/17 21:46 naproxen Allergy Severe Hives Verified 09/14/17 21:46 piperacillin Allergy Severe Hives Verified 09/14/17 21:46 tazobactam Allergy Severe Hives Verified 07/24/17 01:33 adhesive tape Allergy Rash, Verified 09/14/17 21:44 Localized shellfish derived Allergy Difficulty Verified 09/14/17 21:46 Breathing Home Medications Medication Instructions Recorded Confirmed Type aspirin 81 mg PO DAILY 09/14/17 09/14/17 History ferrous sulfate 15 mg PO BID 09/14/17 09/14/17 History fluoxetine 20 mg PO DAILY 09/14/17 09/14/17 History lorazepam 1 mg PO BID 09/14/17 09/14/17 History methocarbamol 500 mg PO QID 09/14/17 09/14/17 History oxycodone 10 mg PO Q4-6H PRN 09/14/17 09/14/17 History pantoprazole [Protonix] 40 mg PO DAILY 09/14/17 09/14/17 History topiramate [Topamax] 50 mg PO DAILY 09/14/17 09/14/17 History warfarin [Coumadin] 5 mg PO DAILY 09/14/17 09/14/17 History warfarin [Coumadin] 5 mg PO DAILY 09/14/17 09/14/17 History Physical Exam Vital signs: Vital Signs 10/17/17 20:00 10/18/17 00:00 10/18/17 04:00 Temperature 99.5 F 98.6 F 98.6 F Pulse Rate 62 60 53 L Respiratory Rate 18 20 18 Blood Pressure 106/54 L 118/57 L 118/65 Pulse Oximetry 99 99 99 10/18/17 08:00 10/18/17 12:00 Temperature 98.6 F 97.8 F Pulse Rate 68 61 Respiratory Rate 18 18 Blood Pressure 130/67 135/62 Pulse Oximetry 100 99 Intake & Output 10/17/17 10/18/17 10/18/17 18:59 06:59 18:59 Intake Total 1158.5 / 1158.5 2458.5 / 2458.5 1258.50 / 1258.50 Balance 1158.5 / 1158.5 2458.5 / 2458.5 1258.50 / 1258.50 Weight 69.2 kg Intake: IV 1158.5 / 1158.5 1458.5 / 1458.5 1258.50 / 1258.50 Sodium Bicarbonate 8.4% Inj 50 700 / 700 1000 / 1000 900 / 900 MEQ In NS Inj 950 ML @ 84 mls/ hr IV.CONT .[id number] [facility] Rx#: [id number] Diflucan 400 mg Premix Bag 200 200 / 200 ML @ 100 mls/hr IV.SIG Q24H [facility] Rx#:[id number] Merrem Inj 1,000 MG In NS Inj 200 / 200 100 / 100 100 ML @ 200 mls/hr IV.SIG Q8H [facility] Rx#:[id number] Vancomycin Inj 850 MG In NS Inj 258.5 / 258.5 258.5 / 258.5 258.50 / 258.50 250 ML @ 250 mls/hr IV.SIG Q12H [facility] Rx#:[id number] Oral 1000 / 1000 Other: # Voids 5 # Incontinent Voids 1 Date of Last Bowel Movement 10/18/17 Narrative: No apparent anxiety moist mucous membranes PERRLA skin without rash respirations nonlabored moves all 4 extremities to command digits warm well perfused Left upper extremity Full active passive range of motion Patient was seen roughly 2 days ago, and is significantly improved from then Less erythema/edema Small area of nonfluctuant tenderness over volar forearm much less tender No fluctuance corresponding to CT appreciated Assessment and Plan - Assessment (1) Cellulitis of forearm Code(s): L03.119 - Cellulitis of unspecified part of limb Status: Acute - Plan 26-year-old female with resolving left forearm cellulitis Patient is much much improved from 2 days ago Questionable area of fluid on CT personally reviewed by me and measured to be 0.5 x 1.5 cm and appears disorganized Risks benefits alternative treatments discussed All questions answered and the patient expressed understanding Patient elected to assume the risks of nonoperative treatment of her infection I feel this is reasonable as the patient is significantly improved on IV antibiotics Agree with nurse is concerned that fevers of unknown origin are likely due to patient injecting Please call with questions
[2017-10-18] MEDS: Vancomycin Inj 1,250 MG in Sodium Chlor 0.9% Inj 250 ML IV.SIG SCH (21:20)
[2017-10-19] MEDS: Acetaminophen 325 MG Tablet PO PRN ×2 (00:40→17:45)
[2017-10-19 05:53] LABS: INR 2.9 Ratio; Prothrombin Time 29.6 sec (9.8-11.6)
[2017-10-19] MEDS: Vancomycin Inj 1,250 MG in Sodium Chlor 0.9% Inj 250 ML IV.SIG SCH ×2 (09:30→21:28)
[2017-10-19] MEDS: LORazepam 1 MG Tablet PO SCH ×2 (09:31→20:42)
[2017-10-19] MEDS: Topiramate 25 MG Tablet PO SCH ×2 (09:31→20:41)
[2017-10-19] MEDS: Senna/Docusate Sodium 8.6/50 MG Tablet PO SCH ×2 (09:31→20:41)
[2017-10-19] MEDS: FLUoxetine 20 MG Capsule PO SCH (09:31)
[2017-10-19] MEDS: levETIRAcetam 500 MG Tablet PO SCH ×2 (09:31→20:41)
[2017-10-19 11:10] LABS: Baso # (Auto) 0.1 th/mm3 (0.0-0.2); Baso % (Auto) 0.9 % (0.0-2.0); Eos # (Auto) 0.3 th/mm3 (0.0-0.4); Eos % (Auto) 2.5 % (0.0-4.0); Hemoglobin 8.2 gm/dL (11.6-15.3); Lymph # (Auto) 2.7 th/mm3 (1.0-4.8); Lymph % (Auto) 21.2 % (9.0-44.0); Mean Corpuscular HGB Conc 32.7 % (32.0-36.0); Mean Corpuscular Hemoglobin 27.9 pg (27.0-34.0); Mean Corpuscular Volume 85.3 fL (80.0-100.0); Mean Platelet Volume 8.6 fL (7.0-11.0); Mono # (Auto) 0.7 th/mm3 (0.0-0.9); Mono % (Auto) 5.4 % (0.0-8.0); Platelet Count 349 th/mm3 (150-450); Red Blood Count 2.94 mil/mm3 (4.00-5.30); Red Cell Distribution Width 14.6 % (11.6-17.2); White Blood Count 12.9 th/mm3 (4.0-11.0)
--- NOTE | 2017-10-19 11:36 | P.PNID ---
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 TAO showed normal functioning presthesisis w/o vegetations Pt was discharged w/o antibiotics and developped fever 5 days ago she also noted new swelling and tenderness around her pacer on the L chest She had utrasound of her pacer pochjket and it showed no fluid collection Admission BC were negative Notes reviewed D/W RN temps to 102 overnight Per RN no incident last night. 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) Stroke H/O mitral valve replacement with mechanical valve History of tricuspid valve replacement with mechanical valve Allergies/Adverse Reactions: Allergies codeine Allergy (Severe, Verified 09/14/17 21:46) HIVES/VOMITING Fish Containing Products Allergy (Severe, Verified 09/14/17 21:46) THROAT SWOLLEN/HIVES gabapentin Allergy (Severe, Verified 09/14/17 21:46) Hives morphine Allergy (Severe, Verified 09/14/17 21:46) Hives naproxen Allergy (Severe, Verified 09/14/17 21:46) Hives piperacillin Allergy (Severe, Verified 09/14/17 21:46) Hives tazobactam Allergy (Severe, Verified 07/24/17 01:33) Hives adhesive tape Allergy (Verified 09/14/17 21:44) Rash, Localized shellfish derived Allergy (Verified 09/14/17 21:46) Difficulty Breathing Objective Vital Signs 10/18/17 12:00 10/18/17 16:00 10/18/17 20:00 Temperature 97.8 F 98.3 F 98 F Pulse Rate 78 60 60 Respiratory Rate 18 18 18 Blood Pressure 135/62 141/58 H 151/84 H Pulse Oximetry 99 100 100 10/18/17 23:27 10/19/17 00:00 10/19/17 00:39 Temperature 98.2 F 102 F H Pulse Rate 68 65 Respiratory Rate 18 Blood Pressure 147/59 H Pulse Oximetry 97 10/19/17 04:00 10/19/17 08:00 Temperature 99 F 98.1 F Pulse Rate 78 60 Respiratory Rate 18 18 Blood Pressure 127/64 142/64 H Pulse Oximetry 97 97 Intake & Output 10/18/17 10/19/17 10/19/17 18:59 06:59 18:59 Intake Total 1458.50 / 1458.50 700 / 700 Balance 1458.50 / 1458.50 700 / 700 Weight 70 kg Intake: IV 1458.50 / 1458.50 700 / 700 Sodium Bicarbonate 8.4% Inj 50 900 / 900 MEQ In NS Inj 950 ML @ 84 mls/ hr IV.CONT .[id number] [facility] Rx#: [id number] Diflucan 400 mg Premix Bag 200 200 / 200 ML @ 100 mls/hr IV.SIG Q24H [facility] Rx#:[id number] Merrem Inj 1,000 MG In NS Inj 100 / 100 200 / 200 100 ML @ 200 mls/hr IV.SIG Q8H [facility] Rx#:[id number] Vancomycin Inj 1,250 MG In NS 258.50 / 258.50 500 / 500 Inj 250 ML @ 250 mls/hr IV.SIG Q12H [facility]ENRI Rx#:[id number] Other: # Voids 2 Date of Last Bowel Movement 10/18/17 10/18/17 10/17/17 20:06 Blood - Peripheral Aerobic Blood Culture - Preliminary No growth in 2 days 10/17/17 20:06 Blood - Peripheral Anaerobic Blood Culture - Preliminary No growth in 2 days 10/17/17 20:01 Blood - Peripheral Aerobic Blood Culture - Preliminary No growth in 2 days 10/17/17 20:01 Blood - Peripheral Anaerobic Blood Culture - Preliminary No growth in 2 days 10/16/17 14:32 Blood - Peripheral Aerobic Blood Culture - Preliminary No growth in 3 days 10/16/17 14:32 Blood - Peripheral Anaerobic Blood Culture - Preliminary No growth in 3 days 10/16/17 14:32 Blood - Peripheral Aerobic Blood Culture - Preliminary No growth in 3 days 10/16/17 14:32 Blood - Peripheral Anaerobic Blood Culture - Preliminary No growth in 3 days 10/13/17 20:40 Blood - Peripheral Aerobic Blood Culture - Final Viridans streptococcus [facility] 10/13/17 20:40 Blood - Peripheral Anaerobic Blood Culture - Final Viridans streptococcus [facility] 10/13/17 20:00 Blood - Peripheral Aerobic Blood Culture - Final Viridans streptococcus [facility] 10/13/17 20:00 Blood - Peripheral Anaerobic Blood Culture - Final Viridans streptococcus [facility] Lab - Hematology Results 10/18/17 10/19/17 08:14 10:48 WBC 8.2 12.9 H RBC 2.99 L 2.94 L Hgb 8.4 L 8.2 L Hct 25.8 L 25.0 L MCV 86.2 85.3 MCH 28.1 27.9 MCHC 32.6 32.7 RDW 14.8 14.6 Plt Count 387 349 MPV 8.9 8.6 Neut % (Auto) 70.0 Lymph % (Auto) 21.2 Bullock % (Auto) 5.4 Eos % (Auto) 2.5 Baso % (Auto) 0.9 Neut # (Auto) 9.0 H Lymph # (Auto) 2.7 Bullock # (Auto) 0.7 Eos # (Auto) 0.3 Baso # (Auto) 0.1 WBC Differential . Differential Comment Auto diff final Lab - Chemistry Results 10/17/17 10/18/17 06:58 08:14 Sodium 142 Potassium 3.7 Chloride 111 H Carbon Dioxide 23.0 Anion Gap 8 BUN 7 Creatinine 0.62 Estimated GFR Greater than 89 Random Glucose 79 Calcium 8.2 L Beta HCG, Qual Less than 1.0 Imaging: ITS Impressions Soft Tissue Ultrasound 09/15/17 00:00 CONCLUSION: 1. Negative for abscess or fluid collection. Abdomen X-Ray 09/16/17 00:00 CONCLUSION: Nonspecific KUB. Lumbar Spine X-Ray 10/10/17 00:00 CONCLUSION: Negative trauma study. Shoulder X-Ray 10/10/17 00:00 CONCLUSION: Negative 2 view trauma study. Head CT 10/10/17 20:22 CONCLUSION: 1. No acute hemorrhage, mass or acute infarction. 2. Stable encephalomalacia involving the right middle artery territory consistent with area of old infarction.. Chest X-Ray 10/15/17 11:11 CONCLUSION: Previous cardiac surgery with cardiomegaly. Mild interstitial edema with minimal parenchymal changes retrocardiac region on the left.. Upper Extremity Ultrasound 10/16/17 00:00 CONCLUSION: Negative Venous Doppler Study 10/16/17 00:00 CONCLUSION: 1. Superficial thrombosis of portions of the basilic vein. 2. Phlegmonous area in the lateral left forearm Forearm CT 10/17/17 00:00 CONCLUSION: 1. Nonenhancing hypodensity within the proximal central substance of the brachial radialis muscle suggestive of either abscess or hematoma. Physical Exam: GENERAL: Awake and alert, NAD SKIN: Warm to touch and dry. NO rash. Has tattoos HEENT: no oral thrush, non icteric, moist mucosae NECK; no JVD, supple CARDIOVASCULAR: Regular rate and rhythm. Pacemaker in place no swelling around it, no fluctuance + tenderness to palpation, no redness. + 3/6 holosystolic murmur RESPIRATORY: No accessory muscle use. Clear to auscultation. Breath sounds equal bilaterally. GASTROINTESTINAL: Abdomen soft, non-tender, moderately distended ? ascites Hepatic and splenic margins not palpable. MUSCULOSKELETAL: Extremities without clubbing, cyanosis, L forearm is less swollen, tender, and has palpable cords no palpable fluctuance NEUROLOGICAL: Grossly non-focal PSYCHIATRIC: Calm and cooperative LINE: No evidence of infection. Assessment and Plan - Plan Impression Recurrent SBE, including PVE S/P Mitral and tricuspid valves replacements S/P pacemaker, co pain in the area, but no fluid collection ? Pacer lead endocarditis TAO negative Candidemia BC 10/02 2 D echo negative ? pacer lead infx - no evidence of endophthalmitis New fever since 10/13 with new bacteremia, Viridans Strep - ?due to infected thrombosis LUE - still with intermittent fevers LUE thrombosis , ?early abscess Recommendation Continue Diflucan Continue Vancomycin Continue Meropenem Repeat 2 BC today If another C.albicans fungemia consider pacer lead infection Hand surgery ff: recommends abx , no surgery If LUE area starts draining, I spoke with RN to send wound C/S Follow temps Monitor progress D/W RN - there is a suspicious that pt is using drugs
[2017-10-19] MEDS: Sod Chloride 0.9% Inj 1,000 ML IV.CONT SCH ×2 (11:55→23:23)
--- NOTE | 2017-10-19 11:57 | P.PN ---
Subjective Interval history: Nursing reports a fever last night of 102. Patient reports having unchanged diarrhea secondary to her lactulose. Otherwise has no new complaints. Heart sounds demonstrate 4/6 ejection murmur with an S3 sound Clear lungs bilaterally, unlabored breathing Physical Exam Vital signs: Vital Signs 10/18/17 12:00 10/18/17 16:00 10/18/17 20:00 Temperature 97.8 F 98.3 F 98 F Pulse Rate 78 60 60 Respiratory Rate 18 18 18 Blood Pressure 135/62 141/58 H 151/84 H Pulse Oximetry 99 100 100 10/18/17 23:27 10/19/17 00:00 10/19/17 00:39 Temperature 98.2 F 102 F H Pulse Rate 68 65 Respiratory Rate 18 Blood Pressure 147/59 H Pulse Oximetry 97 10/19/17 04:00 10/19/17 08:00 Temperature 99 F 98.1 F Pulse Rate 78 60 Respiratory Rate 18 18 Blood Pressure 127/64 142/64 H Pulse Oximetry 97 97 Intake & Output 10/18/17 10/19/17 10/19/17 18:59 06:59 18:59 Intake Total 1458.50 / 1458.50 700 / 700 Balance 1458.50 / 1458.50 700 / 700 Weight 70 kg Intake: IV 1458.50 / 1458.50 700 / 700 Sodium Bicarbonate 8.4% Inj 50 900 / 900 MEQ In NS Inj 950 ML @ 84 mls/ hr IV.CONT .[id number] [facility] Rx#: [id number] Diflucan 400 mg Premix Bag 200 200 / 200 ML @ 100 mls/hr IV.SIG Q24H [facility] Rx#:[id number] Merrem Inj 1,000 MG In NS Inj 100 / 100 200 / 200 100 ML @ 200 mls/hr IV.SIG Q8H [facility] Rx#:[id number] Vancomycin Inj 1,250 MG In NS 258.50 / 258.50 500 / 500 Inj 250 ML @ 250 mls/hr IV.SIG Q12H [facility] Rx#:[id number] Other: # Voids 2 Date of Last Bowel Movement 10/18/17 10/18/17 Results - Labs CBC & Chem 7: 10/19/17 10:48 10/18/17 08:14 Laboratory Results - last 24 hr 10/19/17 10/19/17 03:52 10:48 WBC 12.9 H RBC 2.94 L Hgb 8.2 L Hct 25.0 L MCV 85.3 MCH 27.9 MCHC 32.7 RDW 14.6 Plt Count 349 MPV 8.6 Neut % (Auto) 70.0 Lymph % (Auto) 21.2 Campbell % (Auto) 5.4 Eos % (Auto) 2.5 Baso % (Auto) 0.9 Neut # (Auto) 9.0 H Lymph # (Auto) 2.7 Campbell # (Auto) 0.7 Eos # (Auto) 0.3 Baso # (Auto) 0.1 WBC Differential . Differential Comment Auto diff final PT 29.6 H INR 2.9 Microbiology 10/17/17 20:06 Blood - Peripheral Aerobic Blood Culture - Preliminary No growth in 2 days 10/17/17 20:06 Blood - Peripheral Anaerobic Blood Culture - Preliminary No growth in 2 days 10/17/17 20:01 Blood - Peripheral Aerobic Blood Culture - Preliminary No growth in 2 days 10/17/17 20:01 Blood - Peripheral Anaerobic Blood Culture - Preliminary No growth in 2 days 10/16/17 14:32 Blood - Peripheral Aerobic Blood Culture - Preliminary No growth in 3 days 10/16/17 14:32 Blood - Peripheral Anaerobic Blood Culture - Preliminary No growth in 3 days 10/16/17 14:32 Blood - Peripheral Aerobic Blood Culture - Preliminary No growth in 3 days 10/16/17 14:32 Blood - Peripheral Anaerobic Blood Culture - Preliminary No growth in 3 days Assessment and Plan - Assessment (1) Fever of unknown origin Code(s): R50.9 - Fever, unspecified Status: Acute (2) H/O mitral valve replacement with mechanical valve Code(s): Z95.2 - Presence of prosthetic heart valve Status: Acute (3) History of tricuspid valve replacement with mechanical valve Code(s): Z95.2 - Presence of prosthetic heart valve Status: Acute (4) Fungemia Code(s): B49 - Unspecified mycosis Status: Acute (5) IVDU (intravenous drug user) Code(s): F19.90 - Other psychoactive substance use, unspecified, uncomplicated Status: Acute (6) Sepsis Code(s): A41.9 - Sepsis, unspecified organism Status: Acute - Plan 26-year-old female with a 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 Presented with malaise and low-grade fevers and confusion. She did have Streptococcus bacteremia which did clear. Has had an issue of recurring fevers most recently. New fever ID has been following, repeated blood cultures starting today Fungemia Continue with Diflucan, vancomycin. ophthalmology input appreciated, exam completed. No evidence of fungal endophthalmitis -IVFs -Repeat echo results noted, EF 45-50. No definitive vegetation noted. Nonenhancing hypodensity within the proximal central substance of the brachial radialis muscle suggestive of either abscess or hematoma. Hx of endocarditis, s/p AVR, mechanical valve -cont. with med management supra-therapeutic INR for mech. heart valve -continue Coumadin per pharmacy dosing -INR goal is 2.5 to 3.5. Hyperammonemia - stable clinically -lactulose Bilateral upper extremity superficial thrombophlebitis -Continue Coumadin Left FA swelling/induration ? abscess, ? possibly injected substance -Hand surgery recommends medical management Pacemaker site pain -Ultrasound of pacemaker site showed no abscess -Continue Percocet for pain -Pacemaker was interrogated showed no abnormality IVDU -Patient Joselin on 10/10/17 night -Counselled against Labs reviewed, replace potassium Condition guarded Discussed with patient, RN, case management Discharge Planning: dc when INR is stable. Pt has understood she will be partially weaned on opiates while inpt since no MD on the outpt basis is likely to prescribe her dilaudid continuously . (6) Sepsis Qualifiers: Sepsis type: sepsis due to unspecified organism Qualified Code(s): A41.9 - Sepsis, unspecified organism
[2017-10-19] MEDS ORDERED: Pharmacy Ordered Lab Info OTHER ONE (20:45)
[2017-10-20] MEDS: Sod Chloride 0.9% Inj 1,000 ML IV.CONT SCH (06:29)
[2017-10-20 06:58] LABS: INR 4.4 Ratio; Prothrombin Time 44.4 sec (9.8-11.6)
--- NOTE | 2017-10-20 09:14 | XR ---
EXAM DATE: 10/20/2017 9:02 AM EDT AGE/SEX: 26 years / Female INDICATIONS: Cough. CLINICAL DATA: This is the patient's subsequent encounter. Patient reports that signs and symptoms h ave been present for 1 week and indicates a pain score of 5/10. MEDICAL/SURGICAL HISTORY: Seizures. CABG. Pacemaker. COMPARISON: C, CHEST 1V SINGLE AP, 10/15/2017. . FINDINGS: Median sternotomy wires are noted status post cardiac valve surgery. The heart is stable in size comp ared to previous examination. The pulmonary vascular pattern is normal. There is a poor inspiratory r esult. The lungs are clear. There is elevation of the right hemidiaphragm. Pacemaker device is again noted and stable. CONCLUSION: No acute cardiopulmonary disease. Electronically signed by: Ramakrishna Small MD 10/20/2017 9:13 AM EDT
[2017-10-20] MEDS: FLUoxetine 20 MG Capsule PO SCH (10:01)
[2017-10-20] MEDS: LORazepam 1 MG Tablet PO SCH ×2 (10:02→20:34)
[2017-10-20] MEDS: Vancomycin Inj 1,250 MG in Sodium Chlor 0.9% Inj 250 ML IV.SIG SCH ×2 (10:02→21:19)
[2017-10-20] MEDS: levETIRAcetam 500 MG Tablet PO SCH ×2 (10:02→20:34)
[2017-10-20] MEDS: Topiramate 25 MG Tablet PO SCH ×2 (10:02→20:34)
[2017-10-20] MEDS: Senna/Docusate Sodium 8.6/50 MG Tablet PO SCH ×2 (10:02→20:34)
[2017-10-20 10:36] LABS: Hematocrit 25.9 % (35.0-46.0); Hemoglobin 8.7 gm/dL (11.6-15.3); Mean Corpuscular HGB Conc 33.6 % (32.0-36.0); Mean Corpuscular Hemoglobin 28.5 pg (27.0-34.0); Mean Corpuscular Volume 84.9 fL (80.0-100.0); Platelet Count 351 th/mm3 (150-450); Red Blood Count 3.05 mil/mm3 (4.00-5.30); Red Cell Distribution Width 14.9 % (11.6-17.2); White Blood Count 9.3 th/mm3 (4.0-11.0)
--- NOTE | 2017-10-20 14:08 | P.PN ---
Subjective Interval history: Nursing denies any deterioration since last night except for fever of 102.8. Patient herself did have some hemoptysis also about a teaspoons worth. Otherwise no other clinical deterioration. Reports having some nausea but no vomiting. Physical Exam Vital signs: Vital Signs 10/19/17 16:00 10/19/17 20:00 10/20/17 00:00 Temperature 102.8 F H 98.5 F 97.3 F L Pulse Rate 92 H 65 61 Respiratory Rate 18 18 16 Blood Pressure 126/61 156/65 H 125/62 Pulse Oximetry 97 100 95 10/20/17 04:00 10/20/17 08:00 10/20/17 12:00 Temperature 97.4 F L 98.5 F 98.6 F Pulse Rate 59 L 60 61 Respiratory Rate 16 16 16 Blood Pressure 152/62 H 134/60 146/70 H Pulse Oximetry 94 L 99 98 Intake & Output 10/19/17 10/20/17 10/20/17 18:59 06:59 18:59 Intake Total 1062.50 / 1062.50 962.50 / 962.50 982.5 / 982.5 Balance 1062.50 / 1062.50 962.50 / 962.50 982.5 / 982.5 Intake: IV 1062.50 / 1062.50 962.50 / 962.50 262.5 / 262.5 NS Inj 1,000 ML @ 50 mls/hr IV. 500 / 500 500 / 500 CONT .Q20H [facility]ENRI Rx#:[id number] Diflucan 400 mg Premix Bag 200 200 / 200 ML @ 100 mls/hr IV.SIG Q24H [facility]ENRI Rx#:[id number] Merrem Inj 1,000 MG In NS Inj 100 / 100 200 / 200 100 ML @ 200 mls/hr IV.SIG Q8H [facility]RI Rx#:[id number] Vancomycin Inj 1,250 MG In NS 262.50 / 262.50 262.50 / 262.50 262.5 / 262.5 Inj 250 ML @ 250 mls/hr IV.SIG Q12H [facility]RI Rx#:[id number] Oral 720 / 720 Other: # Voids 3 Date of Last Bowel Movement 10/19/17 10/19/17 Narrative: 5/6 ejection murmur, heart sounds regular rhythm Clear lungs bilaterally, unlabored breathing left forearm with medial tenderness and swelling, no erythema Results - Labs CBC & Chem 7: 10/20/17 09:15 10/21/17 06:02 Laboratory Results - last 24 hr 10/19/17 10/20/17 10/20/17 20:53 00:15 05:52 WBC RBC Hgb Hct MCV MCH MCHC RDW Plt Count MPV PT 44.4 H D INR 4.4 Lactic Acid 0.7 Ammonia Vancomycin Trough 15.8 H 10/20/17 10/20/17 09:05 09:15 WBC 9.3 RBC 3.05 L Hgb 8.7 L Hct 25.9 L MCV 84.9 MCH 28.5 MCHC 33.6 RDW 14.9 Plt Count 351 MPV 9.0 PT INR Lactic Acid Ammonia 57 H Vancomycin Trough Microbiology 10/19/17 11:40 Blood - Peripheral Aerobic Blood Culture - Preliminary No growth in 1 day 10/19/17 11:40 Blood - Peripheral Anaerobic Blood Culture - Preliminary No growth in 1 day 10/19/17 11:50 Blood - Peripheral Aerobic Blood Culture - Preliminary No growth in 1 day 10/19/17 11:50 Blood - Peripheral Anaerobic Blood Culture - Preliminary No growth in 1 day 10/17/17 20:06 Blood - Peripheral Aerobic Blood Culture - Preliminary No growth in 3 days 10/17/17 20:06 Blood - Peripheral Anaerobic Blood Culture - Preliminary No growth in 3 days 10/17/17 20:01 Blood - Peripheral Aerobic Blood Culture - Preliminary No growth in 3 days 10/17/17 20:01 Blood - Peripheral Anaerobic Blood Culture - Preliminary No growth in 3 days 10/16/17 14:32 Blood - Peripheral Aerobic Blood Culture - Preliminary No growth in 4 days 10/16/17 14:32 Blood - Peripheral Anaerobic Blood Culture - Preliminary No growth in 4 days 10/16/17 14:32 Blood - Peripheral Aerobic Blood Culture - Preliminary No growth in 4 days 10/16/17 14:32 Blood - Peripheral Anaerobic Blood Culture - Preliminary No growth in 4 days - Imaging Impressions Chest X-Ray 10/20/17 08:42 CONCLUSION: No acute cardiopulmonary disease. Assessment and Plan - Assessment (1) Fever of unknown origin Code(s): R50.9 - Fever, unspecified Status: Acute (2) H/O mitral valve replacement with mechanical valve Code(s): Z95.2 - Presence of prosthetic heart valve Status: Acute (3) History of tricuspid valve replacement with mechanical valve Code(s): Z95.2 - Presence of prosthetic heart valve Status: Acute (4) Fungemia Code(s): B49 - Unspecified mycosis Status: Acute (5) IVDU (intravenous drug user) Code(s): F19.90 - Other psychoactive substance use, unspecified, uncomplicated Status: Acute (6) Sepsis Code(s): A41.9 - Sepsis, unspecified organism Status: Acute - Plan 26-year-old female with a 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 Presented with malaise and low-grade fevers and confusion. She did have Streptococcus bacteremia which did clear. Has had an issue of recurring fevers most recently. New fever ID has been following, repeated blood cultures pending On meropenem and fluconazole and vancomycin Fungemia Continue with fluconazole ophthalmology input appreciated, exam completed. No evidence of fungal endophthalmitis -Repeat echo results noted, EF 45-50. No definitive vegetation noted. Nonenhancing hypodensity within the proximal central substance of the brachial radialis muscle suggestive of either abscess or hematoma. Hx of endocarditis, s/p AVR, mechanical valve -cont. with med management supra-therapeutic INR for mech. heart valve -continue Coumadin per pharmacy dosing -INR goal is 2.5 to 3.5. Hyperammonemia - stable clinically -lactulose Bilateral upper extremity superficial thrombophlebitis -Continue Coumadin Left FA swelling/induration ? abscess, ? possibly injected substance -Hand surgery recommends medical management Pacemaker site pain -Ultrasound of pacemaker site showed no abscess -Continue Percocet for pain -Pacemaker was interrogated showed no abnormality IVDU -Patient Joselin on 10/10/17 night -Counselled against Discharge Planning: dc when INR is stable. Pt has understood she will be partially weaned on opiates while inpt since no MD on the outpt basis is likely to prescribe her dilaudid continuously . (6) Sepsis Qualifiers: Sepsis type: sepsis due to unspecified organism Qualified Code(s): A41.9 - Sepsis, unspecified organism
--- NOTE | 2017-10-20 17:00 | P.PNID ---
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) Stroke H/O mitral valve replacement with mechanical valve History of tricuspid valve replacement with mechanical valve Allergies/Adverse Reactions: Allergies codeine Allergy (Severe, Verified 09/14/17 21:46) HIVES/VOMITING Fish Containing Products Allergy (Severe, Verified 09/14/17 21:46) THROAT SWOLLEN/HIVES gabapentin Allergy (Severe, Verified 09/14/17 21:46) Hives morphine Allergy (Severe, Verified 09/14/17 21:46) Hives naproxen Allergy (Severe, Verified 09/14/17 21:46) Hives piperacillin Allergy (Severe, Verified 09/14/17 21:46) Hives tazobactam Allergy (Severe, Verified 07/24/17 01:33) Hives adhesive tape Allergy (Verified 09/14/17 21:44) Rash, Localized shellfish derived Allergy (Verified 09/14/17 21:46) Difficulty Breathing Objective Vital Signs 10/19/17 20:00 10/20/17 00:00 10/20/17 04:00 Temperature 98.5 F 97.3 F L 97.4 F L Pulse Rate 65 61 59 L Respiratory Rate 18 16 16 Blood Pressure 156/65 H 125/62 152/62 H Pulse Oximetry 100 95 94 L 10/20/17 08:00 10/20/17 12:00 10/20/17 12:03 Temperature 98.5 F 98.6 F Pulse Rate 59 L 61 58 L Respiratory Rate 16 16 Blood Pressure 134/60 146/70 H Pulse Oximetry 99 98 Intake & Output 10/19/17 10/20/17 10/20/17 18:59 06:59 18:59 Intake Total 1062.50 / 1062.50 962.50 / 962.50 982.5 / 982.5 Balance 1062.50 / 1062.50 962.50 / 962.50 982.5 / 982.5 Intake: IV 1062.50 / 1062.50 962.50 / 962.50 262.5 / 262.5 NS Inj 1,000 ML @ 50 mls/hr IV. 500 / 500 500 / 500 CONT .Q20H [facility] Rx#:[id number] Diflucan 400 mg Premix Bag 200 200 / 200 ML @ 100 mls/hr IV.SIG Q24H [facility] Rx#:[id number] Merrem Inj 1,000 MG In NS Inj 100 / 100 200 / 200 100 ML @ 200 mls/hr IV.SIG Q8H [facility] Rx#:[id number] Vancomycin Inj 1,250 MG In NS 262.50 / 262.50 262.50 / 262.50 262.5 / 262.5 Inj 250 ML @ 250 mls/hr IV.SIG Q12H [facility] Rx#:[id number] Oral 720 / 720 Other: # Voids 3 Date of Last Bowel Movement 10/19/17 10/19/17 10/20/17 10/19/17 11:40 Blood - Peripheral Aerobic Blood Culture - Preliminary No growth in 1 day 10/19/17 11:40 Blood - Peripheral Anaerobic Blood Culture - Preliminary No growth in 1 day 10/19/17 11:50 Blood - Peripheral Aerobic Blood Culture - Preliminary No growth in 1 day 10/19/17 11:50 Blood - Peripheral Anaerobic Blood Culture - Preliminary No growth in 1 day 10/17/17 20:06 Blood - Peripheral Aerobic Blood Culture - Preliminary No growth in 3 days 10/17/17 20:06 Blood - Peripheral Anaerobic Blood Culture - Preliminary No growth in 3 days 10/17/17 20:01 Blood - Peripheral Aerobic Blood Culture - Preliminary No growth in 3 days 10/17/17 20:01 Blood - Peripheral Anaerobic Blood Culture - Preliminary No growth in 3 days 10/16/17 14:32 Blood - Peripheral Aerobic Blood Culture - Preliminary No growth in 4 days 10/16/17 14:32 Blood - Peripheral Anaerobic Blood Culture - Preliminary No growth in 4 days 10/16/17 14:32 Blood - Peripheral Aerobic Blood Culture - Preliminary No growth in 4 days 10/16/17 14:32 Blood - Peripheral Anaerobic Blood Culture - Preliminary No growth in 4 days 10/13/17 20:40 Blood - Peripheral Aerobic Blood Culture - Final Viridans streptococcus grp 10/13/17 20:40 Blood - Peripheral Anaerobic Blood Culture - Final Viridans streptococcus grp Lab - Hematology Results 10/19/17 10/20/17 10:48 09:15 WBC 12.9 H 9.3 RBC 2.94 L 3.05 L Hgb 8.2 L 8.7 L Hct 25.0 L 25.9 L MCV 85.3 84.9 MCH 27.9 28.5 MCHC 32.7 33.6 RDW 14.6 14.9 Plt Count 349 351 MPV 8.6 9.0 Neut % (Auto) 70.0 Lymph % (Auto) 21.2 Elk % (Auto) 5.4 Eos % (Auto) 2.5 Baso % (Auto) 0.9 Neut # (Auto) 9.0 H Lymph # (Auto) 2.7 Elk # (Auto) 0.7 Eos # (Auto) 0.3 Baso # (Auto) 0.1 WBC Differential . Differential Comment Auto diff final Lab - Chemistry Results 10/20/17 10/20/17 00:15 09:05 Lactic Acid 0.7 Ammonia 57 H Imaging: ITS Impressions Soft Tissue Ultrasound 09/15/17 00:00 CONCLUSION: 1. Negative for abscess or fluid collection. Impressions Chest X-Ray 10/20/17 08:42 CONCLUSION: No acute cardiopulmonary disease. Physical Exam: GENERAL: Awake and alert, NAD SKIN: Warm to touch and dry. NO rash. Has tattoos HEENT: no oral thrush, non icteric, moist mucosae NECK; no JVD, supple CARDIOVASCULAR: Regular rate and rhythm. Pacemaker in place no swelling around it, no fluctuance + tenderness to palpation, no redness. + 3/6 holosystolic murmur RESPIRATORY: No accessory muscle use. Clear to auscultation. Breath sounds equal bilaterally. GASTROINTESTINAL: Abdomen soft, non-tender, moderately distended ? ascites Hepatic and splenic margins not palpable. MUSCULOSKELETAL: Extremities without clubbing, cyanosis, L forearm is less swollen, less tender, and has palpable cords no palpable fluctuance NEUROLOGICAL: Grossly non-focal PSYCHIATRIC: Calm and cooperative LINE: No evidence of infection. Assessment and Plan - Plan Impression Recurrent SBE, including PVE S/P Mitral and tricuspid valves replacements S/P pacemaker, co pain in the area, but no fluid collection ? Pacer lead endocarditis TAO negative Candidemia BC 10/02 2 D echo negative ? pacer lead infx - no evidence of endophthalmitis New fever since 10/13 with new bacteremia, Viridans Strep - ?due to infected thrombosis LUE - still with intermittent fevers fever is probably 2/2 septic phlebitis of L forearm She has hemoptysis Recommendation Continue Diflucan Continue Vancomycin Continue Meropenem Repeat 2 BC today If another C.albicans fungemia consider pacer lead infection Hand surgery ff: recommends abx , no surgery CT chest (neg beta b-HCG as of 10/17
--- NOTE | 2017-10-20 20:27 | CT ---
EXAM DATE: 10/20/2017 8:02 PM EDT AGE/SEX: 26 years / Female INDICATIONS: Hemoptysis. CLINICAL DATA: This is the patient's initial encounter. Patient reports that signs and symptoms have been present for 1 day and indicates a pain score of 3/10. MEDICAL/SURGICAL HISTORY: Cardiovascular disease. Cerebrovascular disease. . Pacemaker. Valve rep lacement. RADIATION DOSE: 9.10 CTDI (mGy) COMPARISON: [facility] – [place], 08/14/2017. . TECHNIQUE: Multiple contiguous axial images were obtained through the chest without contrast. Image s were obtained in suspended respiration using multiple row detector helical technique. Using automa al exposure control and adjustment of the mA and/or kV according to patient size, radiation dose was kept as low as reasonably achievable to obtain optimal diagnostic quality images. DICOM format imag e data is available electronically for review and comparison. FINDINGS: Lungs: There were scattered areas of mosaic/groundglass attenuation pattern seen throughout the lung s. This is likely from underlying interstitial disease. Emphysematous change is not seen. There is so me patchy density seen at the posterior right lower lobe likely related to atelectasis or mild consol idation. Mediastinum: The patient is status post sternotomy. There appear to be prosthetic mitral and tricusp id valves. The heart size appears enlarged. There are some scattered mildly prominent lymph nodes see n in the mediastinum in the right paratracheal, AP window and precarinal regions measuring up to 1 cm in greatest short axis diameter. These are nonspecific. There is a pacing device seen over the left chest. Pleurae: There is a minimal right pleural effusion. Axillae: Unremarkable. Bony Structures: Unremarkable. Miscellaneous: The examination was extended to include the upper abdomen, and both adrenal glands ar e normal in size and configuration. CONCLUSION: 1. Scattered groundglass/mosaic attenuation pattern seen throughout the lungs likely from underlying interstitial change. Air-trapping and emphysematous change is not seen. 2. Status post sternotomy. The patient has prosthetic mitral and tricuspid valves. There is a pacing device present. 3. Nonspecific prominent lymph nodes in the mediastinum. 4. Minimal right pleural effusion. Electronically signed by: Alex Tee MD 10/20/2017 8:25 PM EDT
[2017-10-21] MEDS: Sod Chloride 0.9% Inj 1,000 ML IV.CONT SCH ×2 (03:51→22:37)
[2017-10-21 06:42] LABS: INR 4.7 Ratio; Prothrombin Time 46.9 sec (9.8-11.6)
[2017-10-21 07:04] LABS: Glomerular Filtration Rate Greater Than 89 mL/min (>89)
[2017-10-21] MEDS ORDERED: Pharmacy Ordered Lab Info OTHER ONE ×2 (08:45→20:45)
[2017-10-21] MEDS: Senna/Docusate Sodium 8.6/50 MG Tablet PO SCH ×2 (08:54→21:07)
[2017-10-21] MEDS: FLUoxetine 20 MG Capsule PO SCH (09:44)
[2017-10-21] MEDS: Topiramate 25 MG Tablet PO SCH ×2 (09:44→21:07)
[2017-10-21] MEDS: LORazepam 1 MG Tablet PO SCH ×2 (09:44→21:07)
[2017-10-21] MEDS: levETIRAcetam 500 MG Tablet PO SCH ×2 (09:44→21:07)
[2017-10-21] MEDS: Acetaminophen 325 MG Tablet PO PRN (10:01)
[2017-10-21] MEDS: Vancomycin Inj 1,250 MG in Sodium Chlor 0.9% Inj 250 ML IV.SIG SCH ×2 (10:20→22:37)
--- NOTE | 2017-10-21 11:47 | P.PN ---
Subjective Interval history: Nursing denies any deterioration since last night except the patient just had a fever around 9:30 AM this morning. Patient herself is disoriented to time, thinks it is nighttime at this moment. Physical Exam Vital signs: Vital Signs 10/20/17 12:00 10/20/17 12:03 10/20/17 15:49 Temperature 98.6 F Pulse Rate 61 58 L 55 L Respiratory Rate 16 Blood Pressure 146/70 H Pulse Oximetry 98 10/20/17 16:00 10/20/17 20:00 10/21/17 00:00 Temperature 98.6 F 99.0 F 99 F Pulse Rate 62 69 80 Respiratory Rate 16 20 20 Blood Pressure 140/72 158/91 H 117/58 L Pulse Oximetry 98 99 100 10/21/17 04:00 10/21/17 06:05 10/21/17 08:00 Temperature 99 F 100.0 F H Pulse Rate 69 69 Respiratory Rate 18 18 16 Blood Pressure 141/66 H 147/65 H Pulse Oximetry 99 98 Intake & Output 10/20/17 10/21/17 10/21/17 18:59 06:59 18:59 Intake Total 1802.5 / 1802.5 1462.5 / 1462.5 Balance 1802.5 / 1802.5 1462.5 / 1462.5 Intake: IV 562.5 / 562.5 1462.5 / 1462.5 NS Inj 1,000 ML @ 50 mls/hr IV. 1000 / 1000 CONT .Q20H [facility] Rx#:[id number] Diflucan 400 mg Premix Bag 200 200 / 200 ML @ 100 mls/hr IV.SIG Q24H [facility] Rx#:[id number] Merrem Inj 1,000 MG In NS Inj 100 / 100 200 / 200 100 ML @ 200 mls/hr IV.SIG Q8H [facility] Rx#:[id number] Vancomycin Inj 1,250 MG In NS 262.5 / 262.5 262.5 / 262.5 Inj 250 ML @ 250 mls/hr IV.SIG Q12H [facility] Rx#:[id number] Oral 1240 / 1240 Other: # Voids 5 Date of Last Bowel Movement 10/20/17 10/20/17 # Bowel Movements 0 Narrative: 5/6 ejection murmur Clear lungs bilaterally, unlabored breathing No acute distress unchanged right forearm mass Results - Labs CBC & Chem 7: 10/20/17 09:15 10/21/17 06:02 Laboratory Results - last 24 hr 10/21/17 10/21/17 06:02 06:02 PT 46.9 H INR 4.7 Creatinine 0.70 Estimated GFR Greater than 89 Microbiology 10/19/17 11:40 Blood - Peripheral Aerobic Blood Culture - Preliminary No growth in 2 days 10/19/17 11:40 Blood - Peripheral Anaerobic Blood Culture - Preliminary No growth in 2 days 10/19/17 11:50 Blood - Peripheral Aerobic Blood Culture - Preliminary No growth in 2 days 10/19/17 11:50 Blood - Peripheral Anaerobic Blood Culture - Preliminary No growth in 2 days 10/17/17 20:06 Blood - Peripheral Aerobic Blood Culture - Preliminary No growth in 4 days 10/17/17 20:06 Blood - Peripheral Anaerobic Blood Culture - Preliminary No growth in 4 days 10/17/17 20:01 Blood - Peripheral Aerobic Blood Culture - Preliminary No growth in 4 days 10/17/17 20:01 Blood - Peripheral Anaerobic Blood Culture - Preliminary No growth in 4 days 10/16/17 14:32 Blood - Peripheral Aerobic Blood Culture - Final No growth in 5 days 10/16/17 14:32 Blood - Peripheral Anaerobic Blood Culture - Final No growth in 5 days 10/16/17 14:32 Blood - Peripheral Aerobic Blood Culture - Final No growth in 5 days 10/16/17 14:32 Blood - Peripheral Anaerobic Blood Culture - Final No growth in 5 days - Imaging Impressions Chest CT 10/20/17 00:00 CONCLUSION: 1. Scattered groundglass/mosaic attenuation pattern seen throughout the lungs likely from underlying interstitial change. Air-trapping and emphysematous change is not seen. 2. Status post sternotomy. The patient has prosthetic mitral and tricuspid valves. There is a pacing device present. 3. Nonspecific prominent lymph nodes in the mediastinum. 4. Minimal right pleural effusion. Assessment and Plan - Assessment (1) Fever of unknown origin Code(s): R50.9 - Fever, unspecified Status: Acute (2) H/O mitral valve replacement with mechanical valve Code(s): Z95.2 - Presence of prosthetic heart valve Status: Acute (3) History of tricuspid valve replacement with mechanical valve Code(s): Z95.2 - Presence of prosthetic heart valve Status: Acute (4) Fungemia Code(s): B49 - Unspecified mycosis Status: Acute (5) IVDU (intravenous drug user) Code(s): F19.90 - Other psychoactive substance use, unspecified, uncomplicated Status: Acute (6) Sepsis Code(s): A41.9 - Sepsis, unspecified organism Status: Acute - Plan 26-year-old female with a 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 Presented with malaise and low-grade fevers and confusion. She did have Streptococcus bacteremia which did clear. Has had an issue of recurring fevers most recently. Fever ID has been following, repeated blood cultures pending On meropenem and fluconazole and vancomycin Fungemia Continue with fluconazole ophthalmology input appreciated, exam completed. No evidence of fungal endophthalmitis -Repeat echo results noted, EF 45-50. No definitive vegetation noted. Nonenhancing hypodensity within the proximal central substance of the brachial radialis muscle suggestive of either abscess or hematoma. Hx of endocarditis, s/p AVR, mechanical valve -cont. with med management supra-therapeutic INR for mech. heart valve -continue Coumadin per pharmacy dosing -INR goal is 2.5 to 3.5. Hyperammonemia - stable clinically w/ daily lactulose Bilateral upper extremity superficial thrombophlebitis -Continue Coumadin Left FA swelling/induration ? abscess, ? possibly injected substance -Hand surgery recommends medical management Pacemaker site pain -Ultrasound of pacemaker site showed no abscess -Continue Percocet for pain -Pacemaker was interrogated showed no abnormality IVDU -Patient Joselin on 10/10/17 night -Counselled against Discharge Planning: dc when INR is stable. Pt has understood she will be partially weaned on opiates while inpt since no MD on the outpt basis is likely to prescribe her dilaudid continuously . (6) Sepsis Qualifiers: Sepsis type: sepsis due to unspecified organism Qualified Code(s): A41.9 - Sepsis, unspecified organism
[2017-10-22] MEDS: Acetaminophen 325 MG Tablet PO PRN ×2 (03:41→17:59)
[2017-10-22 06:02] LABS: INR 4.5 Ratio; Prothrombin Time 45.5 sec (9.8-11.6)
[2017-10-22] MEDS: FLUoxetine 20 MG Capsule PO SCH (08:19)
[2017-10-22] MEDS: levETIRAcetam 500 MG Tablet PO SCH ×2 (08:19→20:00)
[2017-10-22] MEDS: Topiramate 25 MG Tablet PO SCH ×2 (08:19→20:00)
[2017-10-22] MEDS: Vancomycin Inj 1,250 MG in Sodium Chlor 0.9% Inj 250 ML IV.SIG SCH (08:19)
[2017-10-22] MEDS: Senna/Docusate Sodium 8.6/50 MG Tablet PO SCH ×2 (08:20→20:01)
[2017-10-22] MEDS: LORazepam 1 MG Tablet PO SCH ×2 (08:20→20:00)
--- NOTE | 2017-10-22 12:33 | P.PN ---
Subjective Interval history: Nursing denies any deterioration since last night. Patient herself says she had a fever, which started at 100.5 which is better than 2 days ago. She thinks that the swelling over her left forearm is improving a little Physical Exam Vital signs: Vital Signs 10/21/17 16:00 10/21/17 20:00 10/22/17 00:00 Temperature 99.6 F 99.2 F 98.8 F Pulse Rate 61 68 61 Respiratory Rate 16 19 17 Blood Pressure 157/70 H 138/60 137/63 Pulse Oximetry 98 100 98 10/22/17 04:00 10/22/17 08:00 Temperature 100.5 F H 98.2 F Pulse Rate 78 60 Respiratory Rate 20 17 Blood Pressure 148/67 H 156/65 H Pulse Oximetry 94 L 100 Intake & Output 10/21/17 10/22/17 10/22/17 18:59 06:59 18:59 Intake Total 942.5 / 942.5 1702.5 / 1702.5 262.6 / 262.6 Balance 942.5 / 942.5 1702.5 / 1702.5 262.6 / 262.6 Weight 69.3 kg Intake: IV 562.5 / 562.5 1462.5 / 1462.5 262.6 / 262.6 NS Inj 1,000 ML @ 50 mls/hr IV. 1000 / 1000 CONT .Q20H [facility] Rx#:[id number] Diflucan 400 mg Premix Bag 200 200 / 200 ML @ 100 mls/hr IV.SIG Q24H [facility] Rx#:[id number] Merrem Inj 1,000 MG In NS Inj 100 / 100 200 / 200 100 ML @ 200 mls/hr IV.SIG Q8H [facility] Rx#:[id number] Vancomycin Inj 1,250 MG In NS 262.5 / 262.5 262.5 / 262.5 262.6 / 262.6 Inj 250 ML @ 250 mls/hr IV.SIG Q12H [facility] Rx#:[id number] Oral 380 / 380 240 / 240 Other: # Voids 4 2 Date of Last Bowel Movement 10/20/17 10/20/17 10/20/17 # Bowel Movements 1 Narrative: Heart sounds regular rate and rhythm, 5/6 ejection murmur Clear lungs bilaterally, unlabored breathing Appears more energetic today Results - Labs CBC & Chem 7: 10/20/17 09:15 10/21/17 06:02 Laboratory Results - last 24 hr 10/21/17 10/22/17 22:27 04:23 PT 45.5 H INR 4.5 Vancomycin Trough 25.3 H Microbiology 10/19/17 11:40 Blood - Peripheral Aerobic Blood Culture - Preliminary No growth in 3 days 10/19/17 11:40 Blood - Peripheral Anaerobic Blood Culture - Preliminary No growth in 3 days 10/19/17 11:50 Blood - Peripheral Aerobic Blood Culture - Preliminary No growth in 3 days 10/19/17 11:50 Blood - Peripheral Anaerobic Blood Culture - Preliminary No growth in 3 days 10/17/17 20:06 Blood - Peripheral Aerobic Blood Culture - Final No growth in 5 days 10/17/17 20:06 Blood - Peripheral Anaerobic Blood Culture - Final No growth in 5 days 10/17/17 20:01 Blood - Peripheral Aerobic Blood Culture - Final No growth in 5 days 10/17/17 20:01 Blood - Peripheral Anaerobic Blood Culture - Final No growth in 5 days 10/16/17 14:32 Blood - Peripheral Aerobic Blood Culture - Final No growth in 5 days 10/16/17 14:32 Blood - Peripheral Anaerobic Blood Culture - Final No growth in 5 days 10/16/17 14:32 Blood - Peripheral Aerobic Blood Culture - Final No growth in 5 days 10/16/17 14:32 Blood - Peripheral Anaerobic Blood Culture - Final No growth in 5 days Assessment and Plan - Assessment (1) Fever of unknown origin Code(s): R50.9 - Fever, unspecified Status: Acute (2) H/O mitral valve replacement with mechanical valve Code(s): Z95.2 - Presence of prosthetic heart valve Status: Acute (3) History of tricuspid valve replacement with mechanical valve Code(s): Z95.2 - Presence of prosthetic heart valve Status: Acute (4) Fungemia Code(s): B49 - Unspecified mycosis Status: Acute (5) IVDU (intravenous drug user) Code(s): F19.90 - Other psychoactive substance use, unspecified, uncomplicated Status: Acute (6) Sepsis Code(s): A41.9 - Sepsis, unspecified organism Status: Acute - Plan 26-year-old female with a 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 Presented with malaise and low-grade fevers and confusion. She did have Streptococcus bacteremia which did clear. Has had an issue of recurring fevers most recently. Fever Improving in intensity, ID has been following, repeated blood cultures so far negative On meropenem and fluconazole and vancomycin Fungemia Continue with fluconazole ophthalmology input appreciated, exam completed. No evidence of fungal endophthalmitis -Repeat echo results noted, EF 45-50. No definitive vegetation noted. Nonenhancing hypodensity within the proximal central substance of the brachial radialis muscle suggestive of either abscess or hematoma. Hx of endocarditis, s/p AVR, mechanical valve -cont. with med management supra-therapeutic INR for mech. heart valve -continue Coumadin per pharmacy dosing -INR goal is 2.5 to 3.5. Hyperammonemia - stable clinically w/ daily lactulose Bilateral upper extremity superficial thrombophlebitis -Continue Coumadin Left FA swelling/induration ? abscess, ? possibly injected substance -Hand surgery recommends medical management Pacemaker site pain -Ultrasound of pacemaker site showed no abscess -Continue Percocet for pain -Pacemaker was interrogated showed no abnormality IVDU -Patient Joselin on 10/10/17 night -Counselled against Discharge Planning: dc when INR is stable. Pt has understood she will be partially weaned on opiates while inpt since no MD on the outpt basis is likely to prescribe her dilaudid continuously . (6) Sepsis Qualifiers: Sepsis type: sepsis due to unspecified organism Qualified Code(s): A41.9 - Sepsis, unspecified organism
[2017-10-22] MEDS: Sod Chloride 0.9% Inj 1,000 ML IV.CONT SCH (17:59)
[2017-10-23] MEDS: Vancomycin Inj 750 MG in Sodium Chlor 0.9% Inj 250 ML IV.SIG SCH ×2 (02:14→17:44)
[2017-10-23 07:09] LABS: INR 3.3 Ratio; Prothrombin Time 33.4 sec (9.8-11.6)
[2017-10-23] MEDS: FLUoxetine 20 MG Capsule PO SCH (09:39)
[2017-10-23] MEDS: LORazepam 1 MG Tablet PO SCH ×2 (09:39→20:04)
[2017-10-23] MEDS: Senna/Docusate Sodium 8.6/50 MG Tablet PO SCH ×2 (09:40→20:04)
[2017-10-23] MEDS: levETIRAcetam 500 MG Tablet PO SCH ×2 (09:40→20:04)
[2017-10-23] MEDS: Topiramate 25 MG Tablet PO SCH ×2 (09:40→20:04)
--- NOTE | 2017-10-23 13:16 | P.PN ---
Subjective Interval history: Nursing denies any deterioration since last night. Patient herself reports having some nausea. Thinks that left arm swelling is unchanged since yesterday. Physical Exam Vital signs: Vital Signs 10/22/17 16:00 10/22/17 20:00 10/23/17 00:00 Temperature 100.9 F H 98.4 F 97.4 F L Pulse Rate 71 71 54 L Respiratory Rate 17 16 16 Blood Pressure 151/66 H 166/74 H 156/65 H Pulse Oximetry 100 98 98 10/23/17 04:00 Temperature 97.9 F Pulse Rate 77 Respiratory Rate 16 Blood Pressure 153/65 H Pulse Oximetry 94 L Intake & Output 10/22/17 10/23/17 10/23/17 18:59 06:59 18:59 Intake Total 1782.6 / 1782.6 2037.5 / 2037.5 Output Total 2400 / 2400 Balance 1782.6 / 1782.6 -362.5 / -362.5 Weight 70.5 kg Intake: IV 1062.6 / 1062.6 957.5 / 957.5 NS Inj 1,000 ML @ 50 mls/hr IV. 500 / 500 500 / 500 CONT .Q20H [facility] Rx#:[id number] Diflucan 400 mg Premix Bag 200 200 / 200 ML @ 100 mls/hr IV.SIG Q24H [facility] Rx#:[id number] Merrem Inj 1,000 MG In NS Inj 100 / 100 200 / 200 100 ML @ 200 mls/hr IV.SIG Q8H [facility] Rx#:[id number] Vancomycin Inj 750 MG In NS Inj 262.6 / 262.6 257.5 / 257.5 250 ML @ 250 mls/hr IV.SIG Q12H [facility] Rx#:[id number] Oral 720 / 720 1080 / 1080 Output: Urine 2400 / 2400 Other: # Voids 3 Date of Last Bowel Movement 10/20/17 10/22/17 # Bowel Movements 0 2 Narrative: Left forearm edema Clear lungs bilaterally, unlabored breathing 5/6 ejection murmur, regular rate rhythm Results - Labs CBC & Chem 7: 10/20/17 09:15 10/21/17 06:02 Laboratory Results - last 24 hr 10/23/17 06:18 PT 33.4 H D INR 3.3 Microbiology 10/19/17 11:40 Blood - Peripheral Aerobic Blood Culture - Preliminary No growth in 4 days 10/19/17 11:40 Blood - Peripheral Anaerobic Blood Culture - Preliminary No growth in 4 days 10/19/17 11:50 Blood - Peripheral Aerobic Blood Culture - Preliminary No growth in 4 days 10/19/17 11:50 Blood - Peripheral Anaerobic Blood Culture - Preliminary No growth in 4 days 10/17/17 20:06 Blood - Peripheral Aerobic Blood Culture - Final No growth in 5 days 10/17/17 20:06 Blood - Peripheral Anaerobic Blood Culture - Final No growth in 5 days 10/17/17 20:01 Blood - Peripheral Aerobic Blood Culture - Final No growth in 5 days 10/17/17 20:01 Blood - Peripheral Anaerobic Blood Culture - Final No growth in 5 days Assessment and Plan - Assessment (1) Fever of unknown origin Code(s): R50.9 - Fever, unspecified Status: Acute (2) H/O mitral valve replacement with mechanical valve Code(s): Z95.2 - Presence of prosthetic heart valve Status: Acute (3) History of tricuspid valve replacement with mechanical valve Code(s): Z95.2 - Presence of prosthetic heart valve Status: Acute (4) Fungemia Code(s): B49 - Unspecified mycosis Status: Acute (5) IVDU (intravenous drug user) Code(s): F19.90 - Other psychoactive substance use, unspecified, uncomplicated Status: Acute (6) Sepsis Code(s): A41.9 - Sepsis, unspecified organism Status: Acute - Plan 26-year-old female with a 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 Presented with malaise and low-grade fevers and confusion. She did have Streptococcus bacteremia which did clear. Has had an issue of recurring fevers most recently. Recurring fevers that are now low-grade Improving in intensity, ID has been following, repeated blood cultures so far negative On meropenem and fluconazole and vancomycin Fungemia Continue with fluconazole ophthalmology input appreciated, exam completed. No evidence of fungal endophthalmitis -Repeat echo results noted, EF 45-50. No definitive vegetation noted. Nonenhancing hypodensity within the proximal central substance of the brachial radialis muscle suggestive of either abscess or hematoma. Hx of endocarditis, s/p AVR, mechanical valve -cont. with med management supra-therapeutic INR for mech. heart valve -continue Coumadin per pharmacy dosing -INR goal is 2.5 to 3.5. Hyperammonemia - stable clinically w/ daily lactulose Bilateral upper extremity superficial thrombophlebitis -Continue Coumadin Left FA swelling/induration ? abscess, ? possibly injected substance -Hand surgery recommends medical management Pacemaker site pain -Ultrasound of pacemaker site showed no abscess -Continue Percocet for pain -Pacemaker was interrogated showed no abnormality IVDU -Patient Joselin on 10/10/17 night -Counselled against Discharge Planning: dc when INR is stable. Pt has understood she will be partially weaned on opiates while inpt since no MD on the outpt basis is likely to prescribe her dilaudid continuously . (6) Sepsis Qualifiers: Sepsis type: sepsis due to unspecified organism Qualified Code(s): A41.9 - Sepsis, unspecified organism
[2017-10-23] MEDS: Sod Chloride 0.9% Inj 1,000 ML IV.CONT SCH (16:09)
--- NOTE | 2017-10-23 17:51 | P.PNID ---
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) Stroke H/O mitral valve replacement with mechanical valve History of tricuspid valve replacement with mechanical valve Allergies/Adverse Reactions: Allergies codeine Allergy (Severe, Verified 09/14/17 21:46) HIVES/VOMITING Fish Containing Products Allergy (Severe, Verified 09/14/17 21:46) THROAT SWOLLEN/HIVES gabapentin Allergy (Severe, Verified 09/14/17 21:46) Hives morphine Allergy (Severe, Verified 09/14/17 21:46) Hives naproxen Allergy (Severe, Verified 09/14/17 21:46) Hives piperacillin Allergy (Severe, Verified 09/14/17 21:46) Hives tazobactam Allergy (Severe, Verified 07/24/17 01:33) Hives adhesive tape Allergy (Verified 09/14/17 21:44) Rash, Localized shellfish derived Allergy (Verified 09/14/17 21:46) Difficulty Breathing Objective Vital Signs 10/22/17 20:00 10/23/17 00:00 10/23/17 04:00 Temperature 98.4 F 97.4 F L 97.9 F Pulse Rate 71 54 L 77 Respiratory Rate 16 16 16 Blood Pressure 166/74 H 156/65 H 153/65 H Pulse Oximetry 98 98 94 L 10/23/17 08:00 10/23/17 12:00 10/23/17 16:00 Temperature 98.7 F 99.0 F 98.8 F Pulse Rate 61 71 66 Respiratory Rate 17 17 16 Blood Pressure 145/70 H 154/81 H 158/79 H Pulse Oximetry 100 100 100 Intake & Output 10/22/17 10/23/17 10/23/17 18:59 06:59 18:59 Intake Total 1782.6 / 1782.6 2037.5 / 2037.5 100 / 100 Output Total 2400 / 2400 Balance 1782.6 / 1782.6 -362.5 / -362.5 100 / 100 Weight 70.5 kg Intake: IV 1062.6 / 1062.6 957.5 / 957.5 100 / 100 NS Inj 1,000 ML @ 50 mls/hr IV. 500 / 500 500 / 500 CONT .Q20H [facility] Rx#:[id number] Diflucan 400 mg Premix Bag 200 200 / 200 ML @ 100 mls/hr IV.SIG Q24H [facility] Rx#:[id number] Merrem Inj 1,000 MG In NS Inj 100 / 100 200 / 200 100 / 100 100 ML @ 200 mls/hr IV.SIG Q8H [facility] Rx#:[id number] Vancomycin Inj 750 MG In NS Inj 262.6 / 262.6 257.5 / 257.5 250 ML @ 250 mls/hr IV.SIG Q12H [facility] Rx#:[id number] Oral 720 / 720 1080 / 1080 Output: Urine 2400 / 2400 Other: # Voids 3 Date of Last Bowel Movement 10/20/17 10/22/17 10/22/17 # Bowel Movements 0 2 10/19/17 11:40 Blood - Peripheral Aerobic Blood Culture - Preliminary No growth in 4 days 10/19/17 11:40 Blood - Peripheral Anaerobic Blood Culture - Preliminary No growth in 4 days 10/19/17 11:50 Blood - Peripheral Aerobic Blood Culture - Preliminary No growth in 4 days 10/19/17 11:50 Blood - Peripheral Anaerobic Blood Culture - Preliminary No growth in 4 days 10/17/17 20:06 Blood - Peripheral Aerobic Blood Culture - Final No growth in 5 days 10/17/17 20:06 Blood - Peripheral Anaerobic Blood Culture - Final No growth in 5 days 10/17/17 20:01 Blood - Peripheral Aerobic Blood Culture - Final No growth in 5 days 10/17/17 20:01 Blood - Peripheral Anaerobic Blood Culture - Final No growth in 5 days 10/16/17 14:32 Blood - Peripheral Aerobic Blood Culture - Final No growth in 5 days 10/16/17 14:32 Blood - Peripheral Anaerobic Blood Culture - Final No growth in 5 days 10/16/17 14:32 Blood - Peripheral Aerobic Blood Culture - Final No growth in 5 days 10/16/17 14:32 Blood - Peripheral Anaerobic Blood Culture - Final No growth in 5 days Imaging: ITS Impressions Soft Tissue Ultrasound 09/15/17 00:00 CONCLUSION: 1. Negative for abscess or fluid collection. Abdomen X-Ray 09/16/17 00:00 CONCLUSION: Nonspecific KUB. Lumbar Spine X-Ray 10/10/17 00:00 CONCLUSION: Negative trauma study. Shoulder X-Ray 10/10/17 00:00 CONCLUSION: Negative 2 view trauma study. Head CT 10/10/17 20:22 CONCLUSION: 1. No acute hemorrhage, mass or acute infarction. 2. Stable encephalomalacia involving the right middle artery territory consistent with area of old infarction.. . Upper Extremity Ultrasound 10/16/17 00:00 CONCLUSION: Negative Venous Doppler Study 10/16/17 00:00 CONCLUSION: 1. Superficial thrombosis of portions of the basilic vein. 2. Phlegmonous area in the lateral left forearm Forearm CT 10/17/17 00:00 CONCLUSION: 1. Nonenhancing hypodensity within the proximal central substance of the brachial radialis muscle suggestive of either abscess or hematoma. Chest CT 10/20/17 00:00 CONCLUSION: 1. Scattered groundglass/mosaic attenuation pattern seen throughout the lungs likely from underlying interstitial change. Air-trapping and emphysematous change is not seen. 2. Status post sternotomy. The patient has prosthetic mitral and tricuspid valves. There is a pacing device present. 3. Nonspecific prominent lymph nodes in the mediastinum. 4. Minimal right pleural effusion. Chest X-Ray 10/20/17 08:42 CONCLUSION: No acute cardiopulmonary disease. Physical Exam: GENERAL: Awake and alert, NAD SKIN: Warm to touch and dry. NO rash. Has tattoos HEENT: no oral thrush, non icteric, moist mucosae NECK; no JVD, supple CARDIOVASCULAR: Regular rate and rhythm. Pacemaker in place no swelling around it, no fluctuance + tenderness to palpation, no redness. + 3/6 holosystolic murmur RESPIRATORY: No accessory muscle use. Clear to auscultation. Breath sounds equal bilaterally. GASTROINTESTINAL: Abdomen soft, non-tender, moderately distended ? ascites Hepatic and splenic margins not palpable. MUSCULOSKELETAL: Extremities without clubbing, cyanosis, L forearm is not swollen or tender, and has firm not tender palpable cords no palpable fluctuance NEUROLOGICAL: Grossly non-focal PSYCHIATRIC: Calm and cooperative LINE: No evidence of infection. Assessment and Plan - Plan Impression Recurrent SBE, including PVE S/P Mitral and tricuspid valves replacements S/P pacemaker, co pain in the area, but no fluid collection ? Pacer lead endocarditis TAO negative Candidemia BC 10/02 2 D echo negative ? pacer lead infx - no evidence of endophthalmitis New fever since 10/13 with new bacteremia, Viridans Strep - ?due to infected thrombosis LUE - still with intermittent fevers fever is probably 2/2 septic phlebitis of L forearm She has hemoptysis Recommendation dc Diflucan Continue Vancomycin x 14 days from 1st neg clx (thru 10/30) dc Meropenem If another C.albicans fungemia consider pacer lead infection clive Mckeon
[2017-10-24] MEDS: Sod Chloride 0.9% Inj 1,000 ML IV.CONT SCH ×3 (02:59→22:16)
[2017-10-24] MEDS: Vancomycin Inj 750 MG in Sodium Chlor 0.9% Inj 250 ML IV.SIG SCH (03:00)
[2017-10-24 05:47] LABS: INR 1.8 Ratio; Prothrombin Time 18.7 sec (9.8-11.6)
[2017-10-24 06:01] LABS: Glomerular Filtration Rate Greater Than 89 mL/min (>89)
[2017-10-24] MEDS: levETIRAcetam 500 MG Tablet PO SCH ×2 (09:20→21:15)
[2017-10-24] MEDS: Senna/Docusate Sodium 8.6/50 MG Tablet PO SCH ×2 (09:21→21:15)
[2017-10-24] MEDS: FLUoxetine 20 MG Capsule PO SCH (09:21)
[2017-10-24] MEDS: LORazepam 1 MG Tablet PO SCH ×2 (09:21→21:14)
[2017-10-24] MEDS: Topiramate 25 MG Tablet PO SCH ×2 (09:21→21:15)
[2017-10-24] MEDS ORDERED: Pharmacy Ordered Lab Info OTHER ONE (14:45)
[2017-10-24] MEDS: Vancomycin Inj 1,250 MG in Sodium Chlor 0.9% Inj 250 ML IV.SIG SCH (15:39)
--- NOTE | 2017-10-24 17:10 | P.PN ---
Subjective Interval history: Nursing denies any deterioration since last night. Patient reports having some nausea but no vomiting. No fever was noted overnight. Physical Exam Vital signs: Vital Signs 10/23/17 20:00 10/24/17 00:00 10/24/17 04:00 Temperature 98.1 F 98.4 F Pulse Rate 66 61 59 L Respiratory Rate 16 16 Blood Pressure 114/56 L 121/60 Pulse Oximetry 97 96 10/24/17 08:00 10/24/17 09:15 10/24/17 12:00 Temperature 98.4 F 97.9 F Pulse Rate 63 62 64 Respiratory Rate 18 18 Blood Pressure 144/63 H 148/66 H Pulse Oximetry 100 99 10/24/17 13:00 Temperature Pulse Rate 66 Respiratory Rate Blood Pressure Pulse Oximetry Intake & Output 10/23/17 10/24/17 10/24/17 18:59 06:59 18:59 Intake Total 660 / 660 515.0 / 515.0 388 / 388 Balance 660 / 660 515.0 / 515.0 388 / 388 Weight 67 kg Intake: IV 300 / 300 515.0 / 515.0 388 / 388 NS Inj 1,000 ML @ 50 mls/hr IV. 388 / 388 CONT .Q20H [facility] Rx#:[id number] Diflucan 400 mg Premix Bag 200 200 / 200 ML @ 100 mls/hr IV.SIG Q24H [facility] Rx#:[id number] Merrem Inj 1,000 MG In NS Inj 100 / 100 100 ML @ 200 mls/hr IV.SIG Q8H [facility] Rx#:[id number] Vancomycin Inj 750 MG In NS Inj 515.0 / 515.0 250 ML @ 250 mls/hr IV.SIG Q12H [facility] Rx#:[id number] Oral 360 / 360 Other: # Voids 3 Date of Last Bowel Movement 10/23/17 10/24/17 # Bowel Movements 1 Narrative: Clear lungs bilaterally, unlabored breathing 5/6 ejection murmur, regular rate and rhythm Results - Labs CBC & Chem 7: 10/20/17 09:15 10/24/17 05:18 Laboratory Results - last 24 hr 10/24/17 10/24/17 05:18 05:18 PT 18.7 H D INR 1.8 Creatinine 0.63 Estimated GFR Greater than 89 Microbiology 10/19/17 11:40 Blood - Peripheral Aerobic Blood Culture - Final No growth in 5 days 10/19/17 11:40 Blood - Peripheral Anaerobic Blood Culture - Final No growth in 5 days 10/19/17 11:50 Blood - Peripheral Aerobic Blood Culture - Final No growth in 5 days 10/19/17 11:50 Blood - Peripheral Anaerobic Blood Culture - Final No growth in 5 days Assessment and Plan - Assessment (1) Fever of unknown origin Code(s): R50.9 - Fever, unspecified Status: Acute (2) H/O mitral valve replacement with mechanical valve Code(s): Z95.2 - Presence of prosthetic heart valve Status: Acute (3) History of tricuspid valve replacement with mechanical valve Code(s): Z95.2 - Presence of prosthetic heart valve Status: Acute (4) Fungemia Code(s): B49 - Unspecified mycosis Status: Acute (5) IVDU (intravenous drug user) Code(s): F19.90 - Other psychoactive substance use, unspecified, uncomplicated Status: Acute (6) Sepsis Code(s): A41.9 - Sepsis, unspecified organism Status: Acute - Plan 26-year-old female with a 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 Presented with malaise and low-grade fevers and confusion. She did have Streptococcus bacteremia which did clear. Has had an issue of recurring fevers most recently. Recurring fevers Improving in intensity, ID has been following, repeated blood cultures so far negative, fortunately no fever in the last 24 hours Antibiotics D escalated by ID, now on just vancomycin, Fungemia Continue with fluconazole ophthalmology input appreciated, exam completed. No evidence of fungal endophthalmitis -Repeat echo results noted, EF 45-50. No definitive vegetation noted. Nonenhancing hypodensity within the proximal central substance of the brachial radialis muscle suggestive of either abscess or hematoma. Hx of endocarditis, s/p AVR, mechanical valve -cont. with med management supra-therapeutic INR for mech. heart valve -continue Coumadin per pharmacy dosing -INR goal is 2.5 to 3.5. Hyperammonemia - stable clinically w/ daily lactulose Bilateral upper extremity superficial thrombophlebitis -Continue Coumadin Left FA swelling/induration ? abscess, ? possibly injected substance -Hand surgery recommends medical management Pacemaker site pain -Ultrasound of pacemaker site showed no abscess -Continue Percocet for pain -Pacemaker was interrogated showed no abnormality IVDU -Patient Joselin on 10/10/17 night -Counselled against Discharge Planning: dc when INR is stable. Pt has understood she will be partially weaned on opiates while inpt since no MD on the outpt basis is likely to prescribe her dilaudid continuously . (6) Sepsis Qualifiers: Sepsis type: sepsis due to unspecified organism Qualified Code(s): A41.9 - Sepsis, unspecified organism
--- NOTE | 2017-10-24 17:56 | P.PNID ---
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) Stroke H/O mitral valve replacement with mechanical valve History of tricuspid valve replacement with mechanical valve Allergies/Adverse Reactions: Allergies codeine Allergy (Severe, Verified 09/14/17 21:46) HIVES/VOMITING Fish Containing Products Allergy (Severe, Verified 09/14/17 21:46) THROAT SWOLLEN/HIVES gabapentin Allergy (Severe, Verified 09/14/17 21:46) Hives morphine Allergy (Severe, Verified 09/14/17 21:46) Hives naproxen Allergy (Severe, Verified 09/14/17 21:46) Hives piperacillin Allergy (Severe, Verified 09/14/17 21:46) Hives tazobactam Allergy (Severe, Verified 07/24/17 01:33) Hives adhesive tape Allergy (Verified 09/14/17 21:44) Rash, Localized shellfish derived Allergy (Verified 09/14/17 21:46) Difficulty Breathing Objective Vital Signs 10/23/17 20:00 10/24/17 00:00 10/24/17 04:00 Temperature 98.1 F 98.4 F Pulse Rate 66 61 59 L Respiratory Rate 16 16 Blood Pressure 114/56 L 121/60 Pulse Oximetry 97 96 10/24/17 08:00 10/24/17 09:15 10/24/17 12:00 Temperature 98.4 F 97.9 F Pulse Rate 63 62 64 Respiratory Rate 18 18 Blood Pressure 144/63 H 148/66 H Pulse Oximetry 100 99 10/24/17 13:00 10/24/17 17:00 Temperature Pulse Rate 66 60 Respiratory Rate Blood Pressure Pulse Oximetry Intake & Output 10/23/17 10/24/17 10/24/17 18:59 06:59 18:59 Intake Total 660 / 660 515.0 / 515.0 650.5 / 650.5 Balance 660 / 660 515.0 / 515.0 650.5 / 650.5 Weight 67 kg Intake: IV 300 / 300 515.0 / 515.0 650.5 / 650.5 NS Inj 1,000 ML @ 50 mls/hr IV. 388 / 388 CONT .Q20H [facility] Rx#:[id number] Diflucan 400 mg Premix Bag 200 200 / 200 ML @ 100 mls/hr IV.SIG Q24H [facility] Rx#:[id number] Merrem Inj 1,000 MG In NS Inj 100 / 100 100 ML @ 200 mls/hr IV.SIG Q8H [facility] Rx#:[id number] Vancomycin Inj 1,250 MG In NS 515.0 / 515.0 262.5 / 262.5 Inj 250 ML @ 250 mls/hr IV.SIG Q18H [facility] Rx#:[id number] Oral 360 / 360 Other: # Voids 3 Date of Last Bowel Movement 10/23/17 10/24/17 # Bowel Movements 1 10/19/17 11:40 Blood - Peripheral Aerobic Blood Culture - Final No growth in 5 days 10/19/17 11:40 Blood - Peripheral Anaerobic Blood Culture - Final No growth in 5 days 10/19/17 11:50 Blood - Peripheral Aerobic Blood Culture - Final No growth in 5 days 10/19/17 11:50 Blood - Peripheral Anaerobic Blood Culture - Final No growth in 5 days 10/17/17 20:06 Blood - Peripheral Aerobic Blood Culture - Final No growth in 5 days 10/17/17 20:06 Blood - Peripheral Anaerobic Blood Culture - Final No growth in 5 days 10/17/17 20:01 Blood - Peripheral Aerobic Blood Culture - Final No growth in 5 days 10/17/17 20:01 Blood - Peripheral Anaerobic Blood Culture - Final No growth in 5 days Lab - Chemistry Results 10/24/17 05:18 Creatinine 0.63 Estimated GFR Greater than 89 Imaging: ITS Impressions Soft Tissue Ultrasound 09/15/17 00:00 CONCLUSION: 1. Negative for abscess or fluid collection. Abdomen X-Ray 09/16/17 00:00 CONCLUSION: Nonspecific KUB. Lumbar Spine X-Ray 10/10/17 00:00 CONCLUSION: Negative trauma study. Shoulder X-Ray 10/10/17 00:00 CONCLUSION: Negative 2 view trauma study. Head CT 10/10/17 20:22 CONCLUSION: 1. No acute hemorrhage, mass or acute infarction. 2. Stable encephalomalacia involving the right middle artery territory consistent with area of old infarction.. . Upper Extremity Ultrasound 10/16/17 00:00 CONCLUSION: Negative Venous Doppler Study 10/16/17 00:00 CONCLUSION: 1. Superficial thrombosis of portions of the basilic vein. 2. Phlegmonous area in the lateral left forearm Forearm CT 10/17/17 00:00 CONCLUSION: 1. Nonenhancing hypodensity within the proximal central substance of the brachial radialis muscle suggestive of either abscess or hematoma. Chest CT 10/20/17 00:00 CONCLUSION: 1. Scattered groundglass/mosaic attenuation pattern seen throughout the lungs likely from underlying interstitial change. Air-trapping and emphysematous change is not seen. 2. Status post sternotomy. The patient has prosthetic mitral and tricuspid valves. There is a pacing device present. 3. Nonspecific prominent lymph nodes in the mediastinum. 4. Minimal right pleural effusion. Chest X-Ray 10/20/17 08:42 CONCLUSION: No acute cardiopulmonary disease. Physical Exam: GENERAL: Awake and alert, NAD SKIN: Warm to touch and dry. NO rash. Has tattoos HEENT: no oral thrush, non icteric, moist mucosae NECK; no JVD, supple CARDIOVASCULAR: Regular rate and rhythm. Pacemaker in place no swelling around it, no fluctuance + tenderness to palpation, no redness. + 3/6 holosystolic murmur RESPIRATORY: No accessory muscle use. Clear to auscultation. Breath sounds equal bilaterally. GASTROINTESTINAL: Abdomen soft, non-tender, moderately distended ? ascites Hepatic and splenic margins not palpable. MUSCULOSKELETAL: Extremities without clubbing, cyanosis, L forearm is not swollen or tender, and has firm not tender palpable cords no palpable fluctuance NEUROLOGICAL: Grossly non-focal PSYCHIATRIC: Calm and cooperative LINE: No evidence of infection. Assessment and Plan - Plan Impression Recurrent SBE, including PVE S/P Mitral and tricuspid valves replacements S/P pacemaker, co pain in the area, but no fluid collection ? Pacer lead endocarditis TAO negative Candidemia BC 10/02 2 D echo negative ? pacer lead infx - no evidence of endophthalmitis New fever since 10/13 with new bacteremia, Viridans Strep - ?due to infected thrombosis LUE - still with intermittent fevers fever is probably 2/2 septic phlebitis of L forearm She has hemoptysis Recommendation Continue Vancomycin x 14 days from 1st neg clx (thru 10/30) OK to dc from [facility]
[2017-10-25] MEDS: Sod Chloride 0.9% Inj 1,000 ML IV.CONT SCH (06:44)
[2017-10-25 07:13] LABS: INR 1.8 Ratio; Prothrombin Time 18.5 sec (9.8-11.6)
[2017-10-25] MEDS: LORazepam 1 MG Tablet PO SCH ×2 (08:03→21:21)
[2017-10-25] MEDS: Topiramate 25 MG Tablet PO SCH ×2 (08:04→21:21)
[2017-10-25] MEDS: levETIRAcetam 500 MG Tablet PO SCH ×2 (08:04→21:22)
[2017-10-25] MEDS: FLUoxetine 20 MG Capsule PO SCH (08:04)
[2017-10-25] MEDS: Senna/Docusate Sodium 8.6/50 MG Tablet PO SCH ×2 (08:04→21:21)
[2017-10-25] MEDS: Vancomycin Inj 1,250 MG in Sodium Chlor 0.9% Inj 250 ML IV.SIG SCH (08:05)
[2017-10-25] MEDS: Acetaminophen 325 MG Tablet PO PRN (09:29)
[2017-10-25 11:38] LABS: Hematocrit 31.2 % (35.0-46.0); Hemoglobin 10.2 gm/dL (11.6-15.3); Mean Corpuscular HGB Conc 32.6 % (32.0-36.0); Mean Corpuscular Hemoglobin 27.8 pg (27.0-34.0); Mean Corpuscular Volume 85.4 fL (80.0-100.0); Mean Platelet Volume 7.7 fL (7.0-11.0); Platelet Count 543 th/mm3 (150-450); Red Blood Count 3.66 mil/mm3 (4.00-5.30); White Blood Count 5.7 th/mm3 (4.0-11.0)
--- NOTE | 2017-10-25 13:03 | P.PN ---
Subjective Interval history: Patient is doing the same as previous this morning, no major changes. She does have questions about her pain medication stating that it is spaced too far apart. She also complains of stabbing pain at her pacemaker site. Her pacemaker's drum builder is [place] and she does not remember when last it was interrogated. Physical Exam Vital signs: Vital Signs 10/24/17 16:00 10/24/17 17:00 10/24/17 20:00 Temperature 97.9 F 97.7 F Pulse Rate 69 60 54 L Respiratory Rate 18 18 Blood Pressure 132/60 142/61 H Pulse Oximetry 100 97 10/25/17 00:00 10/25/17 04:00 10/25/17 08:00 Temperature 97.9 F 97.7 F 97.8 F Pulse Rate 60 60 60 Respiratory Rate 18 18 18 Blood Pressure 101/52 L 139/60 138/60 Pulse Oximetry 96 97 97 10/25/17 12:00 Temperature 98.3 F Pulse Rate 64 Respiratory Rate 18 Blood Pressure 123/59 L Pulse Oximetry 100 Intake & Output 10/24/17 10/25/17 10/25/17 18:59 06:59 18:59 Intake Total 650.5 / 650.5 612 / 612 262.5 / 262.5 Balance 650.5 / 650.5 612 / 612 262.5 / 262.5 Weight 67 kg Intake: IV 650.5 / 650.5 612 / 612 262.5 / 262.5 NS Inj 1,000 ML @ 50 mls/hr IV. 388 / 388 612 / 612 CONT .Q20H [facility] Rx#:[id number] Vancomycin Inj 1,250 MG In NS 262.5 / 262.5 262.5 / 262.5 Inj 250 ML @ 250 mls/hr IV.SIG Q18H [facility] Rx#:[id number] Other: Date of Last Bowel Movement 10/24/17 Narrative: Gen: Patient lying in bed in NAD CV: 3/6 ejection murmur, otherwise regular rate and rhythm Resp: CTAB, unlabored breathing Chest: Skin overlying pacemaker appears CDI, no erythema or swelling Abd: Normoactive bowel sounds Ext: No cyanosis or edema, calves NTTP Results - Labs CBC & Chem 7: 10/25/17 11:26 10/24/17 05:18 Laboratory Results - last 24 hr 10/25/17 10/25/17 05:26 11:26 WBC 5.7 RBC 3.66 L Hgb 10.2 L Hct 31.2 L MCV 85.4 MCH 27.8 MCHC 32.6 RDW 15.0 Plt Count 543 H D MPV 7.7 PT 18.5 H INR 1.8 Microbiology 10/19/17 11:40 Blood - Peripheral Aerobic Blood Culture - Final No growth in 5 days 10/19/17 11:40 Blood - Peripheral Anaerobic Blood Culture - Final No growth in 5 days 10/19/17 11:50 Blood - Peripheral Aerobic Blood Culture - Final No growth in 5 days 10/19/17 11:50 Blood - Peripheral Anaerobic Blood Culture - Final No growth in 5 days Assessment and Plan - Assessment (1) Fever of unknown origin Code(s): R50.9 - Fever, unspecified Status: Acute (2) Fungemia Code(s): B49 - Unspecified mycosis Status: Acute (3) H/O mitral valve replacement with mechanical valve Code(s): Z95.2 - Presence of prosthetic heart valve Status: Chronic (4) History of tricuspid valve replacement with mechanical valve Code(s): Z95.2 - Presence of prosthetic heart valve Status: Chronic (5) IVDU (intravenous drug user) Code(s): F19.90 - Other psychoactive substance use, unspecified, uncomplicated Status: Chronic - Plan 26-year-old female with a 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 Presented with malaise and low-grade fevers and confusion. She did have Streptococcus bacteremia which resolved. Recurring fevers Improving in intensity, ID has been following, repeated blood cultures so far negative, no fever in the last 48 hours Per ID, continue Vancomycin x 14 days from 1st neg cx (thru 10/30) Fungemia Discontinued fluconazole Ophthalmology input appreciated, exam completed. No evidence of fungal endophthalmitis -Repeat echo results noted, EF 45-50. No definitive vegetation noted Hx of endocarditis, s/p AVR, mechanical valve -Continue with med management Warfarin prophylaxis for mech. heart valve -continue Coumadin per pharmacy dosing -Was subtherapeutic at 1.8 today -INR goal is 2.5 to 3.5. Hyperammonemia - stable clinically w/ daily lactulose Bilateral upper extremity superficial thrombophlebitis -Continue Coumadin Left FA swelling/induration ? abscess, ? possibly injected substance -Improved -Continue vancomycin Discussed Condition With: Patient and nurse Discharge Planning: Ok for discharge per ID. Will discharge after completion of IV antibiotics on . Case management to assist
[2017-10-26] MEDS: traZODone 100 MG Tablet PO PRN (00:17)
[2017-10-26] MEDS: Vancomycin Inj 1,250 MG in Sodium Chlor 0.9% Inj 250 ML IV.SIG SCH ×2 (03:35→21:01)
[2017-10-26 05:56] LABS: INR 2.1 Ratio; Prothrombin Time 20.8 sec (9.8-11.6)
[2017-10-26 06:19] LABS: Glomerular Filtration Rate Greater Than 89 mL/min (>89)
--- NOTE | 2017-10-26 07:37 | P.PN ---
Subjective Interval history: Patient doing well this morning. She has no new complaints, states that she is pretty much the same. She continues to have stabbing pain in her left chest overlying her pacemaker. Physical Exam Vital signs: Vital Signs 10/25/17 08:00 10/25/17 12:00 10/25/17 16:00 Temperature 97.8 F 98.3 F 98.1 F Pulse Rate 60 60 60 Respiratory Rate 18 18 18 Blood Pressure 138/60 123/59 L 126/60 Pulse Oximetry 97 100 99 10/25/17 20:00 10/26/17 00:00 10/26/17 04:00 Temperature 98 F 97.6 F 98.8 F Pulse Rate 60 66 53 L Respiratory Rate 17 15 15 Blood Pressure 135/59 L 113/56 L 123/56 L Pulse Oximetry 100 100 99 Intake & Output 10/25/17 10/26/17 10/26/17 18:59 06:59 18:59 Intake Total 2242.5 / 2242.5 480 / 480 Output Total 900 / 900 Balance 2242.5 / 2242.5 -420 / -420 Weight 66.9 kg Intake: IV 1162.5 / 1162.5 NS Inj 1,000 ML @ 50 mls/hr IV. 900 / 900 CONT .Q20H [facility] Rx#:[id number] Vancomycin Inj 1,250 MG In NS 262.5 / 262.5 Inj 250 ML @ 250 mls/hr IV.SIG Q18H [facility] Rx#:[id number] Oral 1080 / 1080 480 / 480 Output: Urine 900 / 900 Other: # Voids 5 Date of Last Bowel Movement 10/25/17 # Bowel Movements 1 Narrative: Gen: Patient lying in bed in NAD CV: 3/6 ejection murmur, otherwise regular rate and rhythm Resp: CTAB, unlabored breathing Chest: Skin overlying pacemaker appears CDI, no erythema or swelling Abd: Normoactive bowel sounds Ext: No cyanosis or edema, calves NTTP Results - Labs CBC & Chem 7: 10/25/17 11:26 10/26/17 09:17 Laboratory Results - last 24 hr 10/25/17 10/26/17 10/26/17 11:26 04:42 04:42 WBC 5.7 RBC 3.66 L Hgb 10.2 L Hct 31.2 L MCV 85.4 MCH 27.8 MCHC 32.6 RDW 15.0 Plt Count 543 H D MPV 7.7 PT 20.8 H INR 2.1 Creatinine 0.71 Estimated GFR Greater than 89 Assessment and Plan - Assessment (1) Fever of unknown origin Code(s): R50.9 - Fever, unspecified Status: Acute (2) Fungemia Code(s): B49 - Unspecified mycosis Status: Acute (3) H/O mitral valve replacement with mechanical valve Code(s): Z95.2 - Presence of prosthetic heart valve Status: Chronic (4) History of tricuspid valve replacement with mechanical valve Code(s): Z95.2 - Presence of prosthetic heart valve Status: Chronic (5) IVDU (intravenous drug user) Code(s): F19.90 - Other psychoactive substance use, unspecified, uncomplicated Status: Chronic - Plan 26-year-old female with a 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 Presented with malaise and low-grade fevers and confusion. She did have Streptococcus bacteremia which resolved. Recurring fevers Improving in intensity, ID has been following, repeated blood cultures so far negative, no fever in the last 48 hours Per ID, continue Vancomycin x 14 days from 1st neg cx (thru 10/30) Fungemia Ophthalmology input appreciated, exam completed. No evidence of fungal endophthalmitis -Repeat echo results noted, EF 45-50. No definitive vegetation noted Hx of endocarditis, s/p AVR, mechanical valve -Continue with med management Warfarin prophylaxis for mech. heart valve -continue Coumadin per pharmacy dosing -INR goal is 2.5 to 3.5 -Was subtherapeutic at 2.1 today Hyperammonemia - stable clinically w/ daily lactulose Bilateral upper extremity superficial thrombophlebitis -Continue Coumadin Discharge Planning: Ok for discharge per ID. Will discharge after completion of IV antibiotics on . Case management to assist
[2017-10-26] MEDS: FLUoxetine 20 MG Capsule PO SCH (08:26)
[2017-10-26] MEDS: Topiramate 25 MG Tablet PO SCH ×2 (08:26→20:51)
[2017-10-26] MEDS: LORazepam 1 MG Tablet PO SCH ×2 (08:26→20:51)
[2017-10-26] MEDS: levETIRAcetam 500 MG Tablet PO SCH ×2 (08:26→20:51)
[2017-10-26] MEDS: Senna/Docusate Sodium 8.6/50 MG Tablet PO SCH ×2 (08:26→20:52)
[2017-10-26 09:56] LABS: Anion Gap 8 meq/L (5-15); Blood Urea Nitrogen 9 mg/dL (7-18); Calcium 8.7 mg/dL (8.5-10.1); Carbon Dioxide 22.9 meq/L (21.0-32.0); Chloride 109 meq/L (98-107); Glomerular Filtration Rate Greater Than 89 mL/min (>89); Glucose,Random 89 mg/dL (74-106); Potassium 3.6 meq/L (3.5-5.1); Sodium 140 meq/L (136-145)
[2017-10-26] MEDS ORDERED: Pharmacy Ordered Lab Info OTHER ONE (20:45)
[2017-10-26] MEDS: Acetaminophen 325 MG Tablet PO PRN (22:14)
[2017-10-27] MEDS: Acetaminophen 325 MG Tablet PO PRN ×2 (03:40→23:35)
[2017-10-27] MEDS ORDERED: Ibuprofen 600 MG Tablet PO ONE (05:06)
[2017-10-27 07:39] LABS: Prothrombin Time 20.7 sec (9.8-11.6)
[2017-10-27] MEDS: Senna/Docusate Sodium 8.6/50 MG Tablet PO SCH ×2 (09:01→21:35)
[2017-10-27] MEDS: Topiramate 25 MG Tablet PO SCH ×2 (09:01→21:35)
[2017-10-27] MEDS: levETIRAcetam 500 MG Tablet PO SCH ×2 (09:01→21:35)
[2017-10-27] MEDS: FLUoxetine 20 MG Capsule PO SCH (09:01)
[2017-10-27] MEDS: LORazepam 1 MG Tablet PO SCH ×2 (09:01→21:35)
[2017-10-27] MEDS: Vancomycin Inj 1,000 MG in Sodium Chlor 0.9% Inj 250 ML IV.SIG SCH ×2 (09:02→21:35)
--- NOTE | 2017-10-27 17:11 | P.PNIM ---
Subjective Interval history: Patient seen and examined with nursing present. Patient reports that q. 8 hour Dilaudid dosing leaves her in pain just before next dose. Physical Exam Vital signs: Vital Signs 10/26/17 20:00 10/27/17 00:00 10/27/17 00:58 Temperature 99.6 F 99.3 F 98.9 F Pulse Rate 83 79 76 Respiratory Rate 20 18 16 Blood Pressure 134/61 134/68 88/56 L Pulse Oximetry 94 L 99 10/27/17 01:00 10/27/17 04:00 10/27/17 04:09 Temperature 100.9 F H Pulse Rate 93 H 91 H Respiratory Rate Blood Pressure 110/56 L 102/71 Pulse Oximetry 10/27/17 04:45 10/27/17 07:42 10/27/17 07:45 Temperature 101.8 F H 98.1 F Pulse Rate 82 Respiratory Rate 20 Blood Pressure 93/52 L 90/50 L Pulse Oximetry 100 10/27/17 07:52 10/27/17 08:00 10/27/17 12:00 Temperature Pulse Rate 66 61 Respiratory Rate Blood Pressure Pulse Oximetry 100 10/27/17 12:10 10/27/17 16:00 Temperature 97.2 F L Pulse Rate 66 62 Respiratory Rate 16 Blood Pressure 126/69 Pulse Oximetry 100 Intake & Output 10/26/17 10/27/17 10/27/17 18:59 06:59 18:59 Intake Total 520 / 520 525.0 / 525.0 260 / 260 Balance 520 / 520 525.0 / 525.0 260 / 260 Weight 66.9 kg Intake: IV 525.0 / 525.0 260 / 260 Vancomycin Inj 1,000 MG In NS 525.0 / 525.0 260 / 260 Inj 250 ML @ 250 mls/hr IV.SIG Q12H [facility] Rx#:[id number] Oral 520 / 520 Other: # Voids 10 Date of Last Bowel Movement 10/25/17 Narrative: GENERAL: Patient sitting up in bed. Appears comfortable. SKIN: Warm and dry. HEAD: Normocephalic. EYES: No scleral icterus. No injection or drainage. NECK: Supple, trachea midline. No JVD CARDIOVASCULAR: Regular rate and rhythm without murmurs, gallops, or rubs. RESPIRATORY: Breath sounds equal bilaterally. No accessory muscle use. Left chest pacer placement. Well-healed. No erythema. GASTROINTESTINAL: Abdomen soft, non-tender, nondistended. MUSCULOSKELETAL: No cyanosis, or edema. BACK: Nontender without obvious deformity. No CVA tenderness. Results - Labs CBC & Chem 7: 10/25/17 11:26 10/26/17 09:17 Laboratory Results - last 24 hr 10/26/17 10/27/17 21:05 07:00 PT 20.7 H INR 2.0 Vancomycin Trough 11.1 H Assessment and Plan - Assessment (1) Fever of unknown origin Code(s): R50.9 - Fever, unspecified Status: Acute (2) H/O mitral valve replacement with mechanical valve Code(s): Z95.2 - Presence of prosthetic heart valve Status: Chronic (3) History of tricuspid valve replacement with mechanical valve Code(s): Z95.2 - Presence of prosthetic heart valve Status: Chronic (4) Fungemia Code(s): B49 - Unspecified mycosis Status: Acute (5) IVDU (intravenous drug user) Code(s): F19.90 - Other psychoactive substance use, unspecified, uncomplicated Status: Chronic (6) Sepsis Code(s): A41.9 - Sepsis, unspecified organism Status: Acute - Plan = 10/27. Patient seen and examined. Discussed with case management, nursing at [facility]. 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 Presented with malaise and low-grade fevers and confusion. She did have Streptococcus bacteremia which resolved. //Recurring fevers Improving in intensity, ID has been following, repeated blood cultures so far negative, no fever in the last 48 hours Per ID, continue Vancomycin x 14 days from 1st neg cx (thru 10/30) //Fungemia Ophthalmology input appreciated, exam completed. No evidence of fungal endophthalmitis -Repeat echo results noted, EF 45-50. No definitive vegetation noted //Hx of endocarditis, s/p AVR, mechanical valve -Continue with med management //Warfarin prophylaxis for mech. heart valve -continue Coumadin per pharmacy dosing -INR goal is 2.5 to 3.5 -Was subtherapeutic at 2.0 today. Appreciate pharmacy assistance //Pain control. Patient on Dilaudid every 8 hours. Says these interval leaves her in pain for several hours. Will switch to oxycodone every 6 hours. //Hyperammonemia - stable clinically w/ daily lactulose //Bilateral upper extremity superficial thrombophlebitis -Continue Coumadin Discharge Planning: Hopefully home after 10/30 when has completed course of vancomycin. (6) Sepsis Qualifiers: Sepsis type: sepsis due to unspecified organism Qualified Code(s): A41.9 - Sepsis, unspecified organism
[2017-10-27] MEDS: traZODone 100 MG Tablet PO PRN (23:06)
[2017-10-28 08:33] LABS: Prothrombin Time 19.8 sec (9.8-11.6)
[2017-10-28] MEDS ORDERED: Pharmacy Ordered Lab Info OTHER ONE (08:45)
[2017-10-28] MEDS: Senna/Docusate Sodium 8.6/50 MG Tablet PO SCH ×3 (09:42→21:52)
[2017-10-28] MEDS: FLUoxetine 20 MG Capsule PO SCH (09:42)
[2017-10-28] MEDS: levETIRAcetam 500 MG Tablet PO SCH ×2 (09:43→21:52)
[2017-10-28] MEDS: LORazepam 1 MG Tablet PO SCH ×2 (09:43→21:51)
--- NOTE | 2017-10-28 11:34 | P.PNIM ---
Subjective Interval history: Patient seen on exam of nursing present. Patient reports continued pain, same as yesterday. Physical Exam Vital signs: Vital Signs 10/27/17 12:00 10/27/17 12:10 10/27/17 16:00 Temperature 97.2 F L 97.4 F L Pulse Rate 61 66 66 Respiratory Rate 16 16 Blood Pressure 126/69 116/69 Pulse Oximetry 100 99 10/27/17 20:00 10/27/17 20:17 10/27/17 23:30 Temperature 97.8 F 102.3 F H Pulse Rate 74 72 98 H Respiratory Rate 16 16 Blood Pressure 99/44 L 112/52 L Pulse Oximetry 98 98 10/28/17 00:00 10/28/17 01:07 10/28/17 04:00 Temperature 100.7 F H 97.7 F Pulse Rate 109 H 61 Respiratory Rate 18 Blood Pressure 98/49 L Pulse Oximetry 99 10/28/17 08:00 Temperature 97.6 F Pulse Rate 67 Respiratory Rate 18 Blood Pressure 131/62 Pulse Oximetry 97 Intake & Output 10/27/17 10/28/17 10/28/17 18:59 06:59 18:59 Intake Total 780 / 780 500 / 500 Output Total 2 / 2 Balance 780 / 780 498 / 498 Weight 69.4 kg Intake: IV 260 / 260 260 / 260 Vancomycin Inj 1,000 MG In NS 260 / 260 260 / 260 Inj 250 ML @ 250 mls/hr IV.SIG Q12H [facility] Rx#:[id number] Oral 520 / 520 240 / 240 Output: Urine 2 / 2 Other: # Voids 4 Date of Last Bowel Movement 10/27/17 # Bowel Movements 1 0 Narrative: GENERAL: Patient sitting up in bed. Appears comfortable. Exam unchanged. SKIN: Warm and dry. HEAD: Normocephalic. EYES: No scleral icterus. No injection or drainage. NECK: Supple, trachea midline. No JVD CARDIOVASCULAR: Regular rate and rhythm without murmurs, gallops, or rubs. RESPIRATORY: Breath sounds equal bilaterally. No accessory muscle use. Left chest pacer placement. Well-healed. No erythema. GASTROINTESTINAL: Abdomen soft, non-tender, nondistended. MUSCULOSKELETAL: No cyanosis, or edema. BACK: Nontender without obvious deformity. No CVA tenderness. Results - Labs CBC & Chem 7: 10/25/17 11:26 10/28/17 07:54 Laboratory Results - last 24 hr 10/28/17 10/28/17 10/28/17 07:54 07:54 07:54 PT 19.8 H INR 2.0 Creatinine 1.35 H Estimated GFR 47 L Vancomycin Trough 27.6 H Assessment and Plan - Assessment (1) Fever of unknown origin Code(s): R50.9 - Fever, unspecified Status: Acute (2) H/O mitral valve replacement with mechanical valve Code(s): Z95.2 - Presence of prosthetic heart valve Status: Chronic (3) History of tricuspid valve replacement with mechanical valve Code(s): Z95.2 - Presence of prosthetic heart valve Status: Chronic (4) Fungemia Code(s): B49 - Unspecified mycosis Status: Acute (5) IVDU (intravenous drug user) Code(s): F19.90 - Other psychoactive substance use, unspecified, uncomplicated Status: Chronic (6) Sepsis Code(s): A41.9 - Sepsis, unspecified organism Status: Acute - Plan = 10/28. Patient seen and examined. Fever 102.3 last night. Recheck blood cultures. ID notified. Continue IV antibiotics as per ID. 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 Presented with malaise and low-grade fevers and confusion. She did have Streptococcus bacteremia which resolved. //Recurring fevers Improving in intensity, ID has been following, repeated blood cultures so far negative, no fever in the last 48 hours Per ID, continue Vancomycin x 14 days from 1st neg cx (thru 10/30) = Repeat fever on 10/28. Repeat blood cultures pending. //Fungemia Ophthalmology input appreciated, exam completed. No evidence of fungal endophthalmitis -Repeat echo results noted, EF 45-50. No definitive vegetation noted //Hx of endocarditis, s/p AVR, mechanical valve -Continue with med management //Warfarin prophylaxis for mech. heart valve -continue Coumadin per pharmacy dosing -INR goal is 2.5 to 3.5 -Was subtherapeutic at 2.0 today. Appreciate pharmacy assistance //Pain control. Patient on Dilaudid every 8 hours. Says these interval leaves her in pain for several hours. Will switch to oxycodone every 6 hours. //Hyperammonemia - stable clinically w/ daily lactulose //Bilateral upper extremity superficial thrombophlebitis -Continue Coumadin Discharge Planning: Hopefully home after 10/30 when has completed course of vancomycin. (6) Sepsis Qualifiers: Sepsis type: sepsis due to unspecified organism Qualified Code(s): A41.9 - Sepsis, unspecified organism
[2017-10-28] MEDS: Topiramate 25 MG Tablet PO SCH ×2 (12:40→21:52)
[2017-10-28] MEDS: Vancomycin Inj 1,000 MG in Sodium Chlor 0.9% Inj 250 ML IV.SIG SCH (12:44)
--- NOTE | 2017-10-28 19:32 | P.PNID ---
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) Stroke H/O mitral valve replacement with mechanical valve History of tricuspid valve replacement with mechanical valve Allergies/Adverse Reactions: Allergies codeine Allergy (Severe, Verified 09/14/17 21:46) HIVES/VOMITING Fish Containing Products Allergy (Severe, Verified 09/14/17 21:46) THROAT SWOLLEN/HIVES gabapentin Allergy (Severe, Verified 09/14/17 21:46) Hives morphine Allergy (Severe, Verified 09/14/17 21:46) Hives naproxen Allergy (Severe, Verified 09/14/17 21:46) Hives piperacillin Allergy (Severe, Verified 09/14/17 21:46) Hives tazobactam Allergy (Severe, Verified 07/24/17 01:33) Hives adhesive tape Allergy (Verified 09/14/17 21:44) Rash, Localized shellfish derived Allergy (Verified 09/14/17 21:46) Difficulty Breathing Objective Vital Signs 10/27/17 20:00 10/27/17 20:17 10/27/17 23:30 Temperature 97.8 F 102.3 F H Pulse Rate 74 72 98 H Respiratory Rate 16 16 Blood Pressure 99/44 L 112/52 L Pulse Oximetry 98 98 10/28/17 00:00 10/28/17 01:07 10/28/17 04:00 Temperature 100.7 F H 97.7 F Pulse Rate 109 H 61 Respiratory Rate 18 Blood Pressure 98/49 L Pulse Oximetry 99 10/28/17 08:00 10/28/17 12:00 10/28/17 16:00 Temperature 97.6 F 98.0 F 98.2 F Pulse Rate 67 67 80 Respiratory Rate 18 26 H 18 Blood Pressure 131/62 115/53 L 123/55 L Pulse Oximetry 97 92 L 96 Intake & Output 10/28/17 10/28/17 10/29/17 06:59 18:59 06:59 Intake Total 500 / 500 480 / 480 Output Total 2 / 2 Balance 498 / 498 480 / 480 Weight 69.4 kg Intake: IV 260 / 260 Vancomycin Inj 1,000 MG In NS 260 / 260 Inj 250 ML @ 250 mls/hr IV.SIG Q12H [facility] Rx#:[id number] Oral 240 / 240 480 / 480 Output: Urine 2 / 2 Other: # Voids 6 Date of Last Bowel Movement 10/27/17 # Bowel Movements 0 10/28/17 12:20 Blood - Peripheral Aerobic Blood Culture - Pending 10/28/17 12:20 Blood - Peripheral Anaerobic Blood Culture - Pending 10/28/17 12:25 Blood - Peripheral Aerobic Blood Culture - Pending 10/28/17 12:25 Blood - Peripheral Anaerobic Blood Culture - Pending Lab - Chemistry Results 10/28/17 07:54 Creatinine 1.35 H Estimated GFR 47 L Imaging: ITS Impressions Soft Tissue Ultrasound 09/15/17 00:00 CONCLUSION: 1. Negative for abscess or fluid collection. Abdomen X-Ray 09/16/17 00:00 CONCLUSION: Nonspecific KUB. Lumbar Spine X-Ray 10/10/17 00:00 CONCLUSION: Negative trauma study. Shoulder X-Ray 10/10/17 00:00 CONCLUSION: Negative 2 view trauma study. Head CT 10/10/17 20:22 CONCLUSION: 1. No acute hemorrhage, mass or acute infarction. 2. Stable encephalomalacia involving the right middle artery territory consistent with area of old infarction.. . Upper Extremity Ultrasound 10/16/17 00:00 CONCLUSION: Negative Venous Doppler Study 10/16/17 00:00 CONCLUSION: 1. Superficial thrombosis of portions of the basilic vein. 2. Phlegmonous area in the lateral left forearm Forearm CT 10/17/17 00:00 CONCLUSION: 1. Nonenhancing hypodensity within the proximal central substance of the brachial radialis muscle suggestive of either abscess or hematoma. Chest CT 10/20/17 00:00 CONCLUSION: 1. Scattered groundglass/mosaic attenuation pattern seen throughout the lungs likely from underlying interstitial change. Air-trapping and emphysematous change is not seen. 2. Status post sternotomy. The patient has prosthetic mitral and tricuspid valves. There is a pacing device present. 3. Nonspecific prominent lymph nodes in the mediastinum. 4. Minimal right pleural effusion. Chest X-Ray 10/20/17 08:42 CONCLUSION: No acute cardiopulmonary disease. Physical Exam: GENERAL: Awake and alert, NAD Acutely sick, shivering SKIN: Hot to touch and dry. NO rash. Has tattoos HEENT: no oral thrush, non icteric, moist mucosae NECK; no JVD, supple CARDIOVASCULAR: Regular rate and rhythm. Pacemaker in place no swelling around it, no fluctuance + tenderness to palpation, no redness. +1/6 holosystolic murmur RESPIRATORY: No accessory muscle use. Clear to auscultation. Breath sounds equal bilaterally. GASTROINTESTINAL: Abdomen soft, non-tender, moderately distended ? ascites Hepatic and splenic margins not palpable. MUSCULOSKELETAL: Extremities without clubbing, cyanosis, L forearm is not swollen or tender, and has firm not tender palpable cords almost resolved no palpable fluctuance NEUROLOGICAL: Grossly non-focal PSYCHIATRIC: Calm and cooperative LINE: No evidence of infection. Assessment and Plan - Plan Impression Recurrent SBE, including PVE S/P Mitral and tricuspid valves replacements S/P pacemaker, co pain in the area, but no fluid collection ? Pacer lead endocarditis TAO negative Candidemia BC 10/02 2 D echo negative ? pacer lead infx - no evidence of endophthalmitis New fever since 10/13 with new bacteremia, Viridans Strep - ?due to infected thrombosis LUE - still with intermittent fevers fever is probably 2/2 septic phlebitis of L forearm She has hemoptysis New fever Recommendation Cmplete Vancomycin x 14 days from 1st neg clx (thru 10/30) MOre blood clx will repeat US
--- NOTE | 2017-10-28 22:12 | US ---
EXAM DATE: 10/28/2017 9:26 PM EDT AGE/SEX: 26 years / Female INDICATIONS: Pain. Fever. CLINICAL DATA: This is the patient's initial encounter. Patient reports that signs and symptoms have been present for 1 month and indicates a pain score of 6/10. MEDICAL/SURGICAL HISTORY: . Endocarditis. CVA. . Pacemaker. Mitral and tricuspid valve replace ment. COMPARISON: Previous ultrasound dated 09/15/2017. FINDINGS: Possible sonographic images of the left anterior chest wall demonstrate no definite subcutaneous flui d collection to suggest abscess. CONCLUSION: 1. No definite subcutaneous fluid collection within the scanned region of the left anterior chest wa ll at the site of the pacemaker to suggest abscess. Electronically signed by: Ramakrishna Small MD 10/28/2017 10:11 PM EDT
[2017-10-29] MEDS: traZODone 100 MG Tablet PO PRN (00:10)
[2017-10-29] MEDS ORDERED: Pharmacy Ordered Lab Info OTHER SCH (06:00)
[2017-10-29 07:37] LABS: INR 1.7 Ratio; Prothrombin Time 16.8 sec (9.8-11.6)
[2017-10-29] MEDS: Senna/Docusate Sodium 8.6/50 MG Tablet PO SCH ×2 (09:23→21:58)
[2017-10-29] MEDS: LORazepam 1 MG Tablet PO SCH ×2 (09:23→22:01)
[2017-10-29] MEDS: FLUoxetine 20 MG Capsule PO SCH (09:23)
[2017-10-29] MEDS: levETIRAcetam 500 MG Tablet PO SCH ×2 (09:23→21:58)
[2017-10-29] MEDS: Topiramate 25 MG Tablet PO SCH ×2 (09:23→21:58)
[2017-10-29] MEDS: Vancomycin Inj 1,000 MG in Sodium Chlor 0.9% Inj 250 ML IV.SIG SCH (09:24)
--- NOTE | 2017-10-29 17:27 | P.PNIM ---
Subjective Interval history: Stat pain i in left chest pacer site continues. This is nontender when palpated during auscultation. Physical Exam Vital signs: Vital Signs 10/28/17 20:00 10/29/17 00:00 10/29/17 04:00 Temperature 98.9 F 99.5 F 98.1 F Pulse Rate 100 H 86 76 Respiratory Rate 17 16 16 Blood Pressure 151/65 H 109/54 L 109/55 L Pulse Oximetry 100 96 96 10/29/17 08:00 10/29/17 12:00 Temperature 98.5 F 98.3 F Pulse Rate 74 71 Respiratory Rate 18 18 Blood Pressure 135/54 L 116/53 L Pulse Oximetry 97 98 Intake & Output 10/28/17 10/29/17 10/29/17 18:59 06:59 18:59 Intake Total 480 / 480 500 / 500 250 / 250 Balance 480 / 480 500 / 500 250 / 250 Weight 69 kg Intake: IV 250 / 250 Vancomycin Inj 1,000 MG In NS 250 / 250 Inj 250 ML @ 250 mls/hr IV.SIG Q24H [facility] Rx#:[id number] Oral 480 / 480 500 / 500 Other: # Voids 6 2 Narrative: GENERAL: Patient sitting up in bed. Appears comfortable. Exam unchanged. No change on exam. SKIN: Warm and dry. HEAD: Normocephalic. EYES: No scleral icterus. No injection or drainage. NECK: Supple, trachea midline. No JVD CARDIOVASCULAR: Regular rate and rhythm without murmurs, gallops, or rubs. RESPIRATORY: Breath sounds equal bilaterally. No accessory muscle use. Left chest pacer placement. Well-healed. No erythema. No tenderness. GASTROINTESTINAL: Abdomen soft, non-tender, nondistended. MUSCULOSKELETAL: No cyanosis, or edema. BACK: Nontender without obvious deformity. No CVA tenderness. Results - Labs CBC & Chem 7: 10/25/17 11:26 10/29/17 06:45 Laboratory Results - last 24 hr 10/29/17 10/29/17 06:45 06:45 PT 16.8 H INR 1.7 BUN 21 H Creatinine 1.16 H Estimated GFR 56 L Vancomycin Trough 10.0 Microbiology 10/28/17 20:36 Blood - Peripheral Aerobic Blood Culture - Preliminary No growth in 1 day 10/28/17 20:36 Blood - Peripheral Anaerobic Blood Culture - Preliminary No growth in 1 day 10/28/17 20:41 Blood - Peripheral Aerobic Blood Culture - Preliminary No growth in 1 day 10/28/17 20:41 Blood - Peripheral Anaerobic Blood Culture - Preliminary No growth in 1 day 10/28/17 12:20 Blood - Peripheral Aerobic Blood Culture - Preliminary No growth in 1 day 10/28/17 12:20 Blood - Peripheral Anaerobic Blood Culture - Preliminary No growth in 1 day 10/28/17 12:25 Blood - Peripheral Aerobic Blood Culture - Preliminary No growth in 1 day 10/28/17 12:25 Blood - Peripheral Anaerobic Blood Culture - Preliminary No growth in 1 day - Imaging Impressions Soft Tissue Ultrasound 10/28/17 00:00 CONCLUSION: 1. No definite subcutaneous fluid collection within the scanned region of the left anterior chest wall at the site of the pacemaker to suggest abscess. Assessment and Plan - Assessment (1) Fever of unknown origin Code(s): R50.9 - Fever, unspecified Status: Acute (2) H/O mitral valve replacement with mechanical valve Code(s): Z95.2 - Presence of prosthetic heart valve Status: Chronic (3) History of tricuspid valve replacement with mechanical valve Code(s): Z95.2 - Presence of prosthetic heart valve Status: Chronic (4) Fungemia Code(s): B49 - Unspecified mycosis Status: Acute (5) IVDU (intravenous drug user) Code(s): F19.90 - Other psychoactive substance use, unspecified, uncomplicated Status: Chronic (6) Sepsis Code(s): A41.9 - Sepsis, unspecified organism Status: Acute - Plan = 10/29. Patient seen and examined. Afebrile. ID following. Will need ID clearance for discharge. Repeat blood cultures negative at this time 1 day. 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 Presented with malaise and low-grade fevers and confusion. She did have Streptococcus bacteremia which resolved. //Recurring fevers Improving in intensity, ID has been following, repeated blood cultures so far negative, no fever in the last 48 hours Per ID, continue Vancomycin x 14 days from 1st neg cx (thru 10/30) = Repeat fever on 10/28. Repeat blood cultures pending. //Fungemia Ophthalmology input appreciated, exam completed. No evidence of fungal endophthalmitis -Repeat echo results noted, EF 45-50. No definitive vegetation noted //Hx of endocarditis, s/p AVR, mechanical valve -Continue with med management //Warfarin prophylaxis for mech. heart valve -continue Coumadin per pharmacy dosing -INR goal is 2.5 to 3.5 -Was subtherapeutic at 2.0 today. Appreciate pharmacy assistance //Pain control. Patient on Dilaudid every 8 hours. Says these interval leaves her in pain for several hours. Will switch to oxycodone every 6 hours. //Hyperammonemia - stable clinically w/ daily lactulose //Bilateral upper extremity superficial thrombophlebitis -Continue Coumadin Discharge Planning: Hopefully home after 10/30 when has completed course of vancomycin. Will need ID clearance (6) Sepsis Qualifiers: Sepsis type: sepsis due to unspecified organism Qualified Code(s): A41.9 - Sepsis, unspecified organism
[2017-10-30] MEDS: Acetaminophen 325 MG Tablet PO PRN (00:31)
[2017-10-30 05:32] VITALS: BP 110/56; RESP 19; TEMP 98; O2SAT 93
[2017-10-30 07:35] LABS: INR 1.6 Ratio; Prothrombin Time 16.6 sec (9.8-11.6)
[2017-10-30] MEDS: Senna/Docusate Sodium 8.6/50 MG Tablet PO SCH (09:30)
[2017-10-30] MEDS: Topiramate 25 MG Tablet PO SCH (09:30)
[2017-10-30] MEDS: LORazepam 1 MG Tablet PO SCH (09:30)
[2017-10-30] MEDS: levETIRAcetam 500 MG Tablet PO SCH (09:30)
[2017-10-30] MEDS: FLUoxetine 20 MG Capsule PO SCH (09:40)
[2017-10-30] MEDS: Vancomycin Inj 1,000 MG in Sodium Chlor 0.9% Inj 250 ML IV.SIG SCH (09:41)
[2017-10-30 10:01] VITALS: PULSE 65
[2017-10-30] MEDS ORDERED: Diatrizoate Meglum/Diatrizoate Sod Liq 9 ML UDC PO ONE (15:45)
--- NOTE | 2017-10-30 16:54 | P.PNID ---
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) Stroke H/O mitral valve replacement with mechanical valve History of tricuspid valve replacement with mechanical valve Allergies/Adverse Reactions: Allergies codeine Allergy (Severe, Verified 09/14/17 21:46) HIVES/VOMITING Fish Containing Products Allergy (Severe, Verified 09/14/17 21:46) THROAT SWOLLEN/HIVES gabapentin Allergy (Severe, Verified 09/14/17 21:46) Hives morphine Allergy (Severe, Verified 09/14/17 21:46) Hives naproxen Allergy (Severe, Verified 09/14/17 21:46) Hives piperacillin Allergy (Severe, Verified 09/14/17 21:46) Hives tazobactam Allergy (Severe, Verified 07/24/17 01:33) Hives adhesive tape Allergy (Verified 09/14/17 21:44) Rash, Localized shellfish derived Allergy (Verified 09/14/17 21:46) Difficulty Breathing Objective Vital Signs 10/29/17 19:55 10/29/17 20:00 10/30/17 00:00 Temperature 98.9 F 101.9 F H Pulse Rate 81 80 87 Respiratory Rate 20 17 Blood Pressure 119/50 L 102/54 L Pulse Oximetry 97 94 L 10/30/17 04:00 10/30/17 08:00 Temperature 98.0 F Pulse Rate 68 65 Respiratory Rate 19 Blood Pressure 110/56 L Pulse Oximetry 93 L Intake & Output 10/29/17 10/30/17 10/30/17 18:59 06:59 18:59 Intake Total 250 / 250 Balance 250 / 250 Weight 69 kg Intake: IV 250 / 250 Vancomycin Inj 1,000 MG In NS 250 / 250 Inj 250 ML @ 250 mls/hr IV.SIG Q24H [facility] Rx#:[id number] Other: Date of Last Bowel Movement 10/27/17 10/28/17 20:36 Blood - Peripheral Aerobic Blood Culture - Preliminary No growth in 2 days 10/28/17 20:36 Blood - Peripheral Anaerobic Blood Culture - Preliminary No growth in 2 days 10/28/17 20:41 Blood - Peripheral Aerobic Blood Culture - Preliminary No growth in 2 days 10/28/17 20:41 Blood - Peripheral Anaerobic Blood Culture - Preliminary No growth in 2 days 10/28/17 12:20 Blood - Peripheral Aerobic Blood Culture - Preliminary No growth in 2 days 10/28/17 12:20 Blood - Peripheral Anaerobic Blood Culture - Preliminary gram positive rods 10/28/17 12:25 Blood - Peripheral Aerobic Blood Culture - Preliminary No growth in 2 days 10/28/17 12:25 Blood - Peripheral Anaerobic Blood Culture - Preliminary No growth in 2 days Lab - Chemistry Results 10/29/17 10/30/17 06:45 07:03 BUN 21 H 18 Creatinine 1.16 H 1.30 H Estimated GFR 56 L 49 L Imaging: ITS Impressions Abdomen X-Ray 09/16/17 00:00 CONCLUSION: Nonspecific KUB. Lumbar Spine X-Ray 10/10/17 00:00 CONCLUSION: Negative trauma study. Shoulder X-Ray 10/10/17 00:00 CONCLUSION: Negative 2 view trauma study. Head CT 10/10/17 20:22 CONCLUSION: 1. No acute hemorrhage, mass or acute infarction. 2. Stable encephalomalacia involving the right middle artery territory consistent with area of old infarction.. . Upper Extremity Ultrasound 10/16/17 00:00 CONCLUSION: Negative Venous Doppler Study 10/16/17 00:00 CONCLUSION: 1. Superficial thrombosis of portions of the basilic vein. 2. Phlegmonous area in the lateral left forearm Forearm CT 10/17/17 00:00 CONCLUSION: 1. Nonenhancing hypodensity within the proximal central substance of the brachial radialis muscle suggestive of either abscess or hematoma. Chest CT 10/20/17 00:00 CONCLUSION: 1. Scattered groundglass/mosaic attenuation pattern seen throughout the lungs likely from underlying interstitial change. Air-trapping and emphysematous change is not seen. 2. Status post sternotomy. The patient has prosthetic mitral and tricuspid valves. There is a pacing device present. 3. Nonspecific prominent lymph nodes in the mediastinum. 4. Minimal right pleural effusion. Chest X-Ray 10/20/17 08:42 CONCLUSION: No acute cardiopulmonary disease. Soft Tissue Ultrasound 10/28/17 00:00 CONCLUSION: 1. No definite subcutaneous fluid collection within the scanned region of the left anterior chest wall at the site of the pacemaker to suggest abscess. Physical Exam: GENERAL: Awake and alert, NAD shivering SKIN: Hot to touch and dry. NO rash. Has tattoos HEENT: no oral thrush, non icteric, moist mucosae NECK; no JVD, supple CARDIOVASCULAR: Regular rate and rhythm. Pacemaker in place no swelling around it, no fluctuance + tenderness to palpation, no redness. +2-3/6 holosystolic murmur RESPIRATORY: No accessory muscle use. Clear to auscultation. Breath sounds equal bilaterally. GASTROINTESTINAL: Abdomen soft, non-tender, moderately distended ? ascites Hepatic and splenic margins not palpable. MUSCULOSKELETAL: Extremities without clubbing, cyanosis, L forearm is not swollen or tender, and has firm not tender palpable cords almost resolved no palpable fluctuance NEUROLOGICAL: Grossly non-focal PSYCHIATRIC: Calm and cooperative LINE: No evidence of infection. Assessment and Plan - Plan Impression Recurrent SBE, including PVE S/P Mitral and tricuspid valves replacements S/P pacemaker, co pain in the area, but no fluid collection ? Pacer lead endocarditis TAO negative Candidemia BC 10/02 2 D echo negative ? pacer lead infx - no evidence of endophthalmitis New fever since 10/13 with new bacteremia, Viridans Strep - ?due to infected thrombosis LUE - still with intermittent fevers fever is probably 2/2 septic phlebitis of L forearm She has hemoptysis New fever Bacillus bacteremia, low grade Pt caught shooting drugs Recommendation CT A/P If negative will try WBC* galliun scan Restart vancomycin if pt stays ( per RN pt might leave AMA) clive RN clive charge nurse clive Vanessa
--- NOTE | 2017-10-30 19:04 | P.PNIM ---
Subjective Interval history: patient seen this afternoon with nursing present. Patient reports that pain continues. I was subsequently called around 4:30 PM to report that she should've been found with syringe with unknown substance attached IV site. Patient reports nursing that she had regurgitated this and was injecting into her IV site. Patient apparently left AGAINST MEDICAL ADVICE following this incident. Physical Exam Vital signs: Vital Signs 10/29/17 19:55 10/29/17 20:00 10/30/17 00:00 Temperature 98.9 F 101.9 F H Pulse Rate 81 80 87 Respiratory Rate 20 17 Blood Pressure 119/50 L 102/54 L Pulse Oximetry 97 94 L 10/30/17 04:00 10/30/17 08:00 10/30/17 12:00 Temperature 98.0 F Pulse Rate 68 65 65 Respiratory Rate 19 Blood Pressure 110/56 L Pulse Oximetry 93 L 10/30/17 16:00 Temperature Pulse Rate 65 Respiratory Rate Blood Pressure Pulse Oximetry Intake & Output 10/30/17 10/30/17 10/31/17 06:59 18:59 06:59 Intake Total 250 / 250 Balance 250 / 250 Weight 69 kg Intake: IV 250 / 250 Vancomycin Inj 1,000 MG In NS 250 / 250 Inj 250 ML @ 250 mls/hr IV.SIG Q24H [facility] Rx#:[id number] Other: Date of Last Bowel Movement 10/29/17 Narrative: GENERAL: Patient sitting up in bed. Appears comfortable. no change on exam again today. SKIN: Warm and dry. HEAD: Normocephalic. EYES: No scleral icterus. No injection or drainage. NECK: Supple, trachea midline. No JVD CARDIOVASCULAR: Regular rate and rhythm without murmurs, gallops, or rubs. RESPIRATORY: Breath sounds equal bilaterally. No accessory muscle use. Left chest pacer placement. Well-healed. No erythema. No tenderness. GASTROINTESTINAL: Abdomen soft, non-tender, nondistended. MUSCULOSKELETAL: No cyanosis, or edema. BACK: Nontender without obvious deformity. No CVA tenderness. Results - Labs CBC & Chem 7: 10/25/17 11:26 10/30/17 07:03 Laboratory Results - last 24 hr 10/30/17 10/30/17 07:03 07:03 PT 16.6 H INR 1.6 BUN 18 Creatinine 1.30 H Estimated GFR 49 L Microbiology 10/28/17 20:36 Blood - Peripheral Aerobic Blood Culture - Preliminary No growth in 2 days 10/28/17 20:36 Blood - Peripheral Anaerobic Blood Culture - Preliminary No growth in 2 days 10/28/17 20:41 Blood - Peripheral Aerobic Blood Culture - Preliminary No growth in 2 days 10/28/17 20:41 Blood - Peripheral Anaerobic Blood Culture - Preliminary No growth in 2 days 10/28/17 12:20 Blood - Peripheral Aerobic Blood Culture - Preliminary No growth in 2 days 10/28/17 12:20 Blood - Peripheral Anaerobic Blood Culture - Preliminary gram positive rods 10/28/17 12:25 Blood - Peripheral Aerobic Blood Culture - Preliminary No growth in 2 days 10/28/17 12:25 Blood - Peripheral Anaerobic Blood Culture - Preliminary No growth in 2 days Assessment and Plan - Assessment (1) Fever of unknown origin Code(s): R50.9 - Fever, unspecified Status: Acute (2) H/O mitral valve replacement with mechanical valve Code(s): Z95.2 - Presence of prosthetic heart valve Status: Chronic (3) History of tricuspid valve replacement with mechanical valve Code(s): Z95.2 - Presence of prosthetic heart valve Status: Chronic (4) Fungemia Code(s): B49 - Unspecified mycosis Status: Acute (5) IVDU (intravenous drug user) Code(s): F19.90 - Other psychoactive substance use, unspecified, uncomplicated Status: Chronic (6) Sepsis Code(s): A41.9 - Sepsis, unspecified organism Status: Acute - Plan = 10/30. Patient seen and examined. patient did have a fever of over 101 today. Discussed with infectious disease. Plan was for further workup with CT scan and white blood cell scan, however patient found to have syringe reportedly with narcotics she added regurgitated. 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 Presented with malaise and low-grade fevers and confusion. She did have Streptococcus bacteremia which resolved. //Recurring fevers Improving in intensity, ID has been following, repeated blood cultures so far negative, no fever in the last 48 hours Per ID, continue Vancomycin x 14 days from 1st neg cx (thru 10/30) = Repeat fever on 10/28. Repeat blood cultures pending. //Fungemia Ophthalmology input appreciated, exam completed. No evidence of fungal endophthalmitis -Repeat echo results noted, EF 45-50. No definitive vegetation noted //Hx of endocarditis, s/p AVR, mechanical valve -Continue with med management //Warfarin prophylaxis for mech. heart valve -continue Coumadin per pharmacy dosing -INR goal is 2.5 to 3.5 -Was subtherapeutic at 2.0 today. Appreciate pharmacy assistance //Pain control. Patient on Dilaudid every 8 hours. Says these interval leaves her in pain for several hours. Will switch to oxycodone every 6 hours. //Hyperammonemia - stable clinically w/ daily lactulose //Bilateral upper extremity superficial thrombophlebitis -Continue Coumadin Discharge Planning: patient left AGAINST MEDICAL ADVICE. (6) Sepsis Qualifiers: Sepsis type: sepsis due to unspecified organism Qualified Code(s): A41.9 - Sepsis, unspecified organism
--- NOTE | 2017-10-30 19:05 | P.DS ---
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 For the last 10 days she has been having malaise and low-grade fevers but starting 3 days ago her fevers increased as high as 104.5 and she became increasingly confused. She reports that her family found her on the floor yesterday evening shaking and disoriented. Her main complaint on admission outside of fever is that she has exquisite pain and softness around her pacemaker site. She was hospitalized approximately 6 weeks ago for a similar episode involving fever. At that time extensive workup including TAO revealed no evidence of cardiac vegetations and she was sent home following a completed course of IV antibiotics in the hospital. DS: Diagnosis - Discharge Diagnosis (1) Fever of unknown origin Status: Acute (2) H/O mitral valve replacement with mechanical valve Status: Chronic (3) History of tricuspid valve replacement with mechanical valve Status: Chronic (4) Fungemia Status: Acute (5) IVDU (intravenous drug user) Status: Chronic (6) Sepsis Status: Acute DS: Medications - Discharge Medications Prescriptions: hydromorphone 2 mg PO Q8H PRN #21 tab PRN Reason: Acute Pain lactulose 30 ml PO DAILY PRN #1 bottle PRN Reason: Severe Consitipation trazodone 100 mg PO HS PRN #30 tab PRN Reason: Insomnia DS: Summary Hospital Course: Patient continues sepsis, viridans bacteremia, Sayda bacteremia, actinomyces bacteremia. Infectious disease was consulted and patient was continued on broad -spectrum antibiotics, antifungals. Patient was also found to have ammonia levels in the 50s, for which she was started on lactulose. Patient subsequent he found by nursing to be injecting a syringe of unknown fluid into her IV line. Patient decided to leave AGAINST MEDICAL ADVICE following this event. For problem-based summary from most recent progress note, please see below. = 10/30. Patient seen and examined. patient did have a fever of over 101 today. Discussed with infectious disease. Plan was for further workup with CT scan and white blood cell scan, however patient found to have syringe reportedly with narcotics she added regurgitated. 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 Presented with malaise and low-grade fevers and confusion. She did have Streptococcus bacteremia which resolved. //Recurring fevers Improving in intensity, ID has been following, repeated blood cultures so far negative, no fever in the last 48 hours Per ID, continue Vancomycin x 14 days from 1st neg cx (thru 10/30) = Repeat fever on 10/28. Repeat blood cultures pending. //Fungemia Ophthalmology input appreciated, exam completed. No evidence of fungal endophthalmitis -Repeat echo results noted, EF 45-50. No definitive vegetation noted //Hx of endocarditis, s/p AVR, mechanical valve -Continue with med management //Warfarin prophylaxis for mech. heart valve -continue Coumadin per pharmacy dosing -INR goal is 2.5 to 3.5 -Was subtherapeutic at 2.0 today. Appreciate pharmacy assistance //Pain control. Patient on Dilaudid every 8 hours. Says these interval leaves her in pain for several hours. Will switch to oxycodone every 6 hours. //Hyperammonemia - stable clinically w/ daily lactulose //Bilateral upper extremity superficial thrombophlebitis -Continue Coumadin Discharge Planning: patient left AGAINST MEDICAL ADVICE. - Time Spent with Patient Total time spent providing and/or coordinating discharge services: Less than 30 minutes - Quality: VTE Deep Vein Thrombosis/Pulmonary Embolism Present on Admission: Yes Exam Vital signs: Vital Signs 10/29/17 19:55 10/29/17 20:00 10/30/17 00:00 Temperature 98.9 F 101.9 F H Pulse Rate 81 80 87 Respiratory Rate 20 17 Blood Pressure 119/50 L 102/54 L Pulse Oximetry 97 94 L 10/30/17 04:00 10/30/17 08:00 10/30/17 12:00 Temperature 98.0 F Pulse Rate 68 65 65 Respiratory Rate 19 Blood Pressure 110/56 L Pulse Oximetry 93 L 10/30/17 16:00 Temperature Pulse Rate 65 Respiratory Rate Blood Pressure Pulse Oximetry Intake & Output 10/30/17 10/30/17 10/31/17 06:59 18:59 06:59 Intake Total 250 / 250 Balance 250 / 250 Weight 69 kg Intake: IV 250 / 250 Vancomycin Inj 1,000 MG In NS 250 / 250 Inj 250 ML @ 250 mls/hr IV.SIG Q24H [facility] Rx#:[id number] Other: Date of Last Bowel Movement 10/29/17 Results Procedures completed during hospitalization: no invasive procedures. Labs on day of discharge: Labs from last 24 hours 10/30/17 10/30/17 07:03 07:03 PT 16.6 H INR 1.6 BUN 18 Creatinine 1.30 H Estimated GFR 49 L Preliminary micro results at discharge 10/28/17 20:36 Aerobic Blood Culture - Preliminary Blood - Peripheral No growth in 2 days Anaerobic Blood Culture - Preliminary No growth in 2 days 10/28/17 20:41 Aerobic Blood Culture - Preliminary Blood - Peripheral No growth in 2 days Anaerobic Blood Culture - Preliminary No growth in 2 days 10/28/17 12:20 Aerobic Blood Culture - Preliminary Blood - Peripheral No growth in 2 days Anaerobic Blood Culture - Preliminary gram positive rods 10/28/17 12:25 Aerobic Blood Culture - Preliminary Blood - Peripheral No growth in 2 days Anaerobic Blood Culture - Preliminary No growth in 2 days - Impressions ITS Impressions Abdomen X-Ray 09/16/17 00:00 CONCLUSION: Nonspecific KUB. Lumbar Spine X-Ray 10/10/17 00:00 CONCLUSION: Negative trauma study. Shoulder X-Ray 10/10/17 00:00 CONCLUSION: Negative 2 view trauma study. Head CT 10/10/17 20:22 CONCLUSION: 1. No acute hemorrhage, mass or acute infarction. 2. Stable encephalomalacia involving the right middle artery territory consistent with area of old infarction.. . Upper Extremity Ultrasound 10/16/17 00:00 CONCLUSION: Negative Venous Doppler Study 10/16/17 00:00 CONCLUSION: 1. Superficial thrombosis of portions of the basilic vein. 2. Phlegmonous area in the lateral left forearm Forearm CT 10/17/17 00:00 CONCLUSION: 1. Nonenhancing hypodensity within the proximal central substance of the brachial radialis muscle suggestive of either abscess or hematoma. Chest CT 10/20/17 00:00 CONCLUSION: 1. Scattered groundglass/mosaic attenuation pattern seen throughout the lungs likely from underlying interstitial change. Air-trapping and emphysematous change is not seen. 2. Status post sternotomy. The patient has prosthetic mitral and tricuspid valves. There is a pacing device present. 3. Nonspecific prominent lymph nodes in the mediastinum. 4. Minimal right pleural effusion. Chest X-Ray 10/20/17 08:42 CONCLUSION: No acute cardiopulmonary disease. Soft Tissue Ultrasound 10/28/17 00:00 CONCLUSION: 1. No definite subcutaneous fluid collection within the scanned region of the left anterior chest wall at the site of the pacemaker to suggest abscess. Discharge Plan - Discharge Disposition Patient Disposition: Against Medical Advice - Discharge Condition Condition: Stable - Discharge Order Discharge Orders: AMA Discharge (Routine); Ordered 10/31/17 Ordered By: Roberto Vanessa - Physicians Team Primary Care Provider: UNKNOWN, Attending Provider: Roberto Vanessa Other Providers: Neida Rader MD ; Merlyn Gurrola MD ; Nova Gill MD ; Ahsan Page MD ; Ramakrishna Parisi MD
[2017-10-31] MEDS ORDERED: Pharmacy Ordered Lab Info OTHER ONE (09:45)
== END 2017-10-30 18:12 | disposition home or self-care (01) ==
LOC: PHED 21:22 → PHEDA 23:13 → PHICU 09-15 03:40 → HCIS 09-15 19:58 → N04 09-18 18:48
PROVIDERS: ADMIT Internal Medicine; ATTEND Internal Medicine

== ENCOUNTER 2018-02-03 15:14 | Inpatient (IN) ==
--- NOTE | 2018-02-03 16:55 | ED ---
HPI General Chief complaint: Chest Pain Stated complaint: Dr barragan/Medical Time Seen by Provider: 02/03/18 16:36 History of Present Illness HPI narrative: 27-year-old female with a history of IV drug use, endocarditis, status post mitral valve and tricuspid valve replacement x2, CVA x2 presents to the emergency department for evaluation of abnormal blood cultures. Patient states that she has had fever every day for the last 4 days around 101 F. States that her T-max was 102.1 F. States that she has had a productive cough over the past week. States that she was seen in our emergency department yesterday due to heroin overdose and at that time was diagnosed with bronchitis and prescribed antibiotics which she started taking last night. When she was brought in yesterday they did blood cultures which were noted to be growing positive cocci so patient was called and told to come back. Patient states that since this morning she is been having chest pain and shortness of breath. Shortness of breath is brought on with exertion. Denies any swelling of the extremities, lightheadedness, dizziness, nausea, vomiting, diarrhea. States she has had some mild right-sided abdominal pain today as well. She is status post cholecystectomy, splenectomy, appendectomy. Denies , states she has an IUD in place. No other complaints. Related Data Home Medications Medication Instructions Recorded Confirmed aspirin 81 mg PO DAILY 09/14/17 02/03/18 ferrous sulfate 15 mg PO BID 09/14/17 02/03/18 fluoxetine 20 mg PO DAILY 09/14/17 02/03/18 lorazepam 1 mg PO BID 09/14/17 02/03/18 pantoprazole [Protonix] 40 mg PO DAILY 09/14/17 02/03/18 topiramate [Topamax] 50 mg PO BID 09/14/17 02/03/18 warfarin [Coumadin] 5 mg PO DAILY 09/14/17 02/03/18 levetiracetam [Keppra] 1 tab PO BID 01/11/18 02/03/18 Previous Rx's Medication Instructions Recorded trazodone 100 mg PO HS PRN #30 tab 10/08/17 azithromycin See Label Instructions .ROUTE 02/02/18 .COMPLEX #6 tab benzonatate [Tessalon Perles] 100 mg PO TID PRN #10 cap 02/02/18 Allergies Allergy/AdvReac Type Severity Reaction Status Date / Time codeine Allergy Severe HIVES/VOMIT Verified 02/03/18 15:40 ING Fish Containing Products Allergy Severe THROAT Verified 02/03/18 15:40 SWOLLEN/HIVES gabapentin Allergy Severe Hives Verified 02/03/18 15:40 morphine Allergy Severe Hives Verified 02/03/18 15:40 naproxen Allergy Severe Hives Verified 02/03/18 15:40 piperacillin Allergy Severe Hives Verified 02/03/18 15:40 tazobactam Allergy Severe Hives Verified 02/03/18 15:40 adhesive tape Allergy Rash, Verified 02/03/18 15:40 Localized shellfish derived Allergy Difficulty Verified 02/03/18 15:40 Breathing Review of Systems ROS: all other systems reviewed are negative PMFSH Social History Social History Substance History: Active Abuse Second Hand Smoke Exposure: No Smoking Status: Never smoker Tobacco Type: Cigarettes How Often Do You Have a Drink Containing Alcohol: Never Recent Travel in [facility] within the Last 8 Weeks: No Recent Out of Country Travel within the Last 8 Weeks: No Immunization History Tetanus Immunization: >5 Years Exam Narrative Exam Narrative: GENERAL: Well-nourished and well-developed pleasant patient in no acute distress who is nontoxic appearing. SKIN: Warm and dry without any obvious rashes or lesions. HEAD: Normocephalic and atraumatic. EYES: No injection, drainage, or hyphema noted. PERRLA. EOMI. ENT: No nasal drainage noted. Oropharynx is clear. NECK: Supple and the trachea is midline. CARDIOVASCULAR: Regular rate and rhythm. RESPIRATORY: Breath sounds are equal bilaterally with no accessory muscle use, wheezing, rhonchi, or crackles. GASTROINTESTINAL: Mild tenderness to palpation of right mid abdomen. No rebound tenderness or guarding. Abdomen is soft and nondistended. MUSCULOSKELETAL: No obvious deformities, swelling, cyanosis, or ecchymosis is present throughout the upper and lower extremities. Patient has full range of motion without any signs of neurovascular compromise. Distal pulses are 2+ throughout. NEUROLOGICAL: Awake, alert, and oriented. Normal speech and gait. Cranial nerves are grossly intact. Course Initial Documented Vital Signs Temperature 99.3 F 02/03/18 15:37 Pulse Rate 82 02/03/18 15:37 Respiratory Rate 20 02/03/18 15:37 Blood Pressure 118/61 02/03/18 15:37 Pulse Oximetry 98 02/03/18 15:37 Last Documented Vital Signs Temperature 98.9 F 02/03/18 16:35 Pulse Rate 92 H 02/03/18 20:16 Respiratory Rate 21 02/03/18 16:35 Blood Pressure 110/65 02/03/18 16:35 Pulse Oximetry 99 02/03/18 20:16 Medical Decision Making [facility] Narrative Medical decision making narrative: 27-year-old female presents to the emergency department for evaluation of positive blood cultures. Patient is afebrile, vital signs are stable. Patient does have mild right-sided abdominal tenderness to palpation but otherwise physical exam is unremarkable. IV access is obtained, labs have been drawn and sent. Patient is placed on cardiac telemetry and pulse oximetry monitoring. I reviewed the records from patient's recent visit. She had a CT of the abdomen and pelvis with IV contrast done yesterday which showed mildly prominent and inhomogenous liver, small right pleural effusion but is otherwise unremarkable for any acute findings. Both sets of blood cultures drawn yesterday are growing gram-positive cocci Enterobacter species. Patient administered vancomycin 1 g IV here in the ED. EKG shows sinus rhythm with incomplete RBBB, no acute ST elevations or depressions, unchanged from prior. CBC shows mild anemia but is otherwise unremarkable, this is consistent with her previous labs. INR is subtherapeutic at 1.1. CMP is unremarkable. Lactic acid is within normal limits. Chest X-ray is negative. Troponin is less than 0.02. Urinalysis shows large occult blood but is otherwise unremarkable. Patient will be admitted for IV antibiotics and further evaluation of positive blood cultures as well as chest pain. I spoke with Dr. Vanessa [facility] who accepts patient to his service. Medical Screen Exam Complete: Yes Emergency Medical Condition: Yes Differential Diagnosis Differential Diagnosis: Sepsis versus bacteremia versus endocarditis versus IV drug use Lab Data Result diagrams: 02/03/18 19:15 02/03/18 19:15 Lab Results 02/03/18 02/03/18 02/03/18 Range/Units 17:02 19:15 19:15 WBC 7.9 (4.0-11.0) th/mm3 RBC 3.61 L (4.00-5.30) mil/mm3 Hgb 10.6 L (11.6-15.3) gm/dL Hct 31.0 L (35.0-46.0) % MCV 85.8 (80.0-100.0) fL MCH 29.3 (27.0-34.0) pg MCHC 34.1 (32.0-36.0) % RDW 14.8 (11.6-17.2) % Plt Count 359 (150-450) th/mm3 MPV 8.0 (7.0-11.0) fL Neut % (Auto) 39.5 (16.0-70.0) % Lymph % (Auto) 46.7 H (9.0-44.0) % [place] % (Auto) 7.5 (0.0-8.0) % Eos % (Auto) 5.1 H (0.0-4.0) % Baso % (Auto) 1.2 (0.0-2.0) % Neut # (Auto) 3.1 (1.8-7.7) th/mm3 Lymph # (Auto) 3.7 (1.0-4.8) th/mm3 [place] # (Auto) 0.6 (0.0-0.9) th/mm3 Eos # (Auto) 0.4 (0.0-0.4) th/mm3 Baso # (Auto) 0.1 (0.0-0.2) th/mm3 WBC Differential . Differential Comment Auto diff final Sodium 138 (136-145) meq/L Potassium 3.7 (3.5-5.1) meq/L Chloride 105 (98-107) meq/L Carbon Dioxide 25.2 (21.0-32.0) meq/L Anion Gap 8 (5-15) meq/L BUN 10 (7-18) mg/dL Creatinine 0.74 (0.50-1.00) mg/dL Estimated GFR Greater than 89 (>89) mL/min Random Glucose 78 (74-106) mg/dL Lactic Acid (0.4-2.0) mmol/L Calcium 8.8 (8.5-10.1) mg/dL Magnesium 2.0 (1.5-2.5) mg/dL Total Bilirubin 0.8 (0.2-1.0) mg/dL AST 21 (15-37) U/L ALT 19 (10-53) U/L Alkaline Phosphatase 156 H (45-117) U/L Total Creatine Kinase 44 (26-192) U/L Troponin I Less than 0.02 L (0.02-0.05) ng/mL Total Protein 8.0 (6.4-8.2) g/dL Albumin 3.7 (3.4-5.0) g/dL Lipase (73-393) U/L Urine Color Yellow (Yellw/Straw) Urine Clarity Slight H (Clear) Urine pH 6.0 (5.0-8.5) Ur Specific [place] 1.005 (1.002-1.035) Urine Protein Negative (Neg-Trace) mg/dL Urine Glucose (UA) Negative (Negative) mg/dL Urine Ketones Negative (Negative) mg/dL Urine Occult Blood Large H (Negative) Urine Nitrate Negative (Negative) Urine Bilirubin Negative (Negative) Urine Urobilinogen Less than 2 (Less than 2) mg/dL Ur Leukocyte Esterase Negative (Negative) Urine RBC 1 (0-3) /hpf Urine WBC 1 (0-5) /hpf Ur Squamous Epith Cells 51 (0-5) /hpf Urine Bacteria Occasional H (None) /hpf Micro UA Comment Culture not ind Ur Microscopic Review Not Reportable Urine Culture Comments Culture not ind 02/03/18 02/03/18 Range/Units 19:15 19:20 WBC (4.0-11.0) th/mm3 RBC (4.00-5.30) mil/mm3 Hgb (11.6-15.3) gm/dL Hct (35.0-46.0) % MCV (80.0-100.0) fL MCH (27.0-34.0) pg MCHC (32.0-36.0) % RDW (11.6-17.2) % Plt Count (150-450) th/mm3 MPV (7.0-11.0) fL Neut % (Auto) (16.0-70.0) % Lymph % (Auto) (9.0-44.0) % [place] % (Auto) (0.0-8.0) % Eos % (Auto) (0.0-4.0) % Baso % (Auto) (0.0-2.0) % Neut # (Auto) (1.8-7.7) th/mm3 Lymph # (Auto) (1.0-4.8) th/mm3 [place] # (Auto) (0.0-0.9) th/mm3 Eos # (Auto) (0.0-0.4) th/mm3 Baso # (Auto) (0.0-0.2) th/mm3 WBC Differential Differential Comment Sodium (136-145) meq/L Potassium (3.5-5.1) meq/L Chloride (98-107) meq/L Carbon Dioxide (21.0-32.0) meq/L Anion Gap (5-15) meq/L BUN (7-18) mg/dL Creatinine (0.50-1.00) mg/dL Estimated GFR (>89) mL/min Random Glucose (74-106) mg/dL Lactic Acid 0.6 (0.4-2.0) mmol/L Calcium (8.5-10.1) mg/dL Magnesium (1.5-2.5) mg/dL Total Bilirubin (0.2-1.0) mg/dL AST (15-37) U/L ALT (10-53) U/L Alkaline Phosphatase (45-117) U/L Total Creatine Kinase (26-192) U/L Troponin I (0.02-0.05) ng/mL Total Protein (6.4-8.2) g/dL Albumin (3.4-5.0) g/dL Lipase 72 L (73-393) U/L Urine Color (Yellw/Straw) Urine Clarity (Clear) Urine pH (5.0-8.5) Ur Specific [place] (1.002-1.035) Urine Protein (Neg-Trace) mg/dL Urine Glucose (UA) (Negative) mg/dL Urine Ketones (Negative) mg/dL Urine Occult Blood (Negative) Urine Nitrate (Negative) Urine Bilirubin (Negative) Urine Urobilinogen (Less than 2) mg/dL Ur Leukocyte Esterase (Negative) Urine RBC (0-3) /hpf Urine WBC (0-5) /hpf Ur Squamous Epith Cells (0-5) /hpf Urine Bacteria (None) /hpf Micro UA Comment Ur Microscopic Review Urine Culture Comments Imaging Data Radiologist's impression: Chest X-Ray 02/03/18 16:50 CONCLUSION: Stable appearance with no evidence of pneumonia. Discharge Plan Discharge Disposition Patient Disposition: ED Admit(ED Internal Use Only) Discharge Order Discharge Orders: ED Use Only Admit Order (Routine); Ordered 02/03/18 Ordered By: Yuko Gaona Discharge Details Diagnosis: Bacteremia, IVDU (intravenous drug user), Chest pain, H/O mitral valve replacement with mechanical valve, History of tricuspid valve replacement with mechanical valve, History of endocarditis Physicians Team ED Provider: Cale Harris ED Midlevel Provider: Yuok Gaona Primary Care Provider: Shital Lea, Rxs /Orders / Referrals /Forms Prescriptions: No Action warfarin [Coumadin] 5 mg Tablet 5 mg PO DAILY RF: 0 topiramate [Topamax] 50 mg Tablet 50 mg PO BID RF: 0 pantoprazole [Protonix] 40 mg Tablet,Delayed Release (Dr/Ec) 40 mg PO DAILY RF: 0 fluoxetine 20 mg Tablet 20 mg PO DAILY RF: 0 aspirin 81 mg Tablet,Chewable 81 mg PO DAILY RF: 0 lorazepam 1 mg Tablet 1 mg PO BID RF: 0 ferrous sulfate 15 mg iron (75 mg)/mL Syringe 15 mg PO BID RF: 0 trazodone 100 mg Tablet 100 mg PO HS PRN (Reason: Insomnia) Qty: 30 RF: 0 azithromycin 250 mg tablet See Label Instructions .ROUTE .COMPLEX Qty: 6 RF: 0 benzonatate [Tessalon Perles] 100 mg capsule 100 mg PO TID PRN (Reason: cough) Qty: 10 RF: 0 levetiracetam [Keppra] 500 mg Tablet 1 tab PO BID RF: 0 Discharge Instructions Patient Printed Instructions: Chest Pain (ED) Status ED Status: With Doctor
--- NOTE | 2018-02-03 17:12 | XR ---
EXAM DATE: 02/03/2018 5:07 PM EST AGE/SEX: 27 years / Female INDICATIONS: Fever. Abnormal blood work. CLINICAL DATA: This is the patient's sequela encounter. Patient reports that signs and symptoms have been present for 4 - 6 days and indicates a pain score of 7/10. MEDICAL/SURGICAL HISTORY: . Cardiovascular disease. Endocarditis. . Pacemaker. Open heart barbara jamarcus x 2 for endocarditis. COMPARISON: C, CHEST 1V SINGLE AP, 02/02/2018. . FINDINGS: A single AP erect portable view of the chest was obtained and again demonstrates that the patient is status post median sternotomy. A left pacer device remains in place. There are no confluent infiltrat es or effusions. The heart size is at the upper limits of normal with no perihilar edema. CONCLUSION: Stable appearance with no evidence of pneumonia. Electronically signed by: Allan Knapp MD 02/03/2018 5:11 PM EST
[2018-02-03 17:25] LABS: Bacteria,Urine Occasional /hpf; Bilirubin,Urine Negative (Negative); Color,Urine Yellow (Yellw/Straw); Glucose,Urine (UA) Negative (Negative); Leukocyte Esterase,Urine Negative (Negative); Nitrite,Urine Negative (Negative); Specific Gravity,Urine 1.005 (1.002-1.035); Squamous Epithelial Cell,Urine 51 /hpf (0-5)
[2018-02-03 17:26] LABS: Clarity,Urine Slight (Clear)
[2018-02-03 19:36] LABS: Baso # (Auto) 0.1 th/mm3 (0.0-0.2); Baso % (Auto) 1.2 % (0.0-2.0); Eos # (Auto) 0.4 th/mm3 (0.0-0.4); Eos % (Auto) 5.1 % (0.0-4.0); Hemoglobin 10.6 gm/dL (11.6-15.3); Lymph # (Auto) 3.7 th/mm3 (1.0-4.8); Lymph % (Auto) 46.7 % (9.0-44.0); Mean Corpuscular HGB Conc 34.1 % (32.0-36.0); Mean Corpuscular Hemoglobin 29.3 pg (27.0-34.0); Mean Corpuscular Volume 85.8 fL (80.0-100.0); Mono # (Auto) 0.6 th/mm3 (0.0-0.9); Mono % (Auto) 7.5 % (0.0-8.0); Neut # (Auto) 3.1 th/mm3 (1.8-7.7); Neut % (Auto) 39.5 % (16.0-70.0); Platelet Count 359 th/mm3 (150-450); Red Blood Count 3.61 mil/mm3 (4.00-5.30); Red Cell Distribution Width 14.8 % (11.6-17.2); White Blood Count 7.9 th/mm3 (4.0-11.0)
[2018-02-03 20:04] LABS: Alanine Aminotransferase 19 U/L (10-53); Albumin 3.7 g/dL (3.4-5.0); Anion Gap 8 meq/L (5-15); Aspartate Aminotransferase 21 U/L (15-37); Blood Urea Nitrogen 10 mg/dL (7-18); Calcium 8.8 mg/dL (8.5-10.1); Carbon Dioxide 25.2 meq/L (21.0-32.0); Chloride 105 meq/L (98-107); Glomerular Filtration Rate Greater Than 89 mL/min (>89); Glucose,Random 78 mg/dL (74-106); Potassium 3.7 meq/L (3.5-5.1); Sodium 138 meq/L (136-145)
[2018-02-03 20:09] LABS: Alkaline Phosphatase 156 U/L (45-117)
[2018-02-03 20:11] LABS: Creatine Kinase 44 U/L (26-192)
[2018-02-03] MEDS ORDERED: Acetaminophen 500 MG Tablet PO ONE (20:15)
[2018-02-03] MEDS: Vancomycin Inj 1,000 MG in Sodium Chlor 0.9% Inj 250 ML IV.SIG SCH (20:15)
[2018-02-03] MEDS ORDERED: Vancomycin Consult Pharmacy OTHER PRN (20:38)
[2018-02-03] MEDS ORDERED: Bisacodyl 10 MG Supp RECTAL PRN (20:39)
[2018-02-03] MEDS: Sod Chloride 0.9% Inj 1,000 ML IV.CONT SCH (20:51)
[2018-02-04] MEDS ORDERED: Ketorolac Inj 30 MG/ML (IVP) Vial IV.PUSH ONE (00:59)
--- NOTE | 2018-02-04 01:09 | P.HPIM ---
History of Present Illness Primary Care Physician: Shital Lea History of Present Illness: 27-year-old female with a history of IV drug abuse, endocarditis, status post mitral and tricuspid valve replacement twice, CVA x2 who presents due to recent abnormal blood cultures. Patient reports a one-week history of productive cough , fevers over the past 4 days around 101 Fahrenheit. Patient does report shortness of breath with exertion as well as left posterior chest pain, mild right-sided abdominal pain times 1 day. She reports last using heroin yesterday Inpatient Certification: I certify that the inpatient services were ordered in accordance with Medicare regulations governing the order. This includes certification that hospital inpatient services are reasonable and necessary and in the case of services not specified as inpatient-only under 42 CFR 419.22(n), that they are appropriately provided as inpatient services in accordance to with the 2-midnight benchmark under 43 CFR 412.3(e) Estimated Total Length of Stay (Days): 3 Plans for Post Hospital Care: Not yet determined Review of Systems All other systems reviewed negative except as stated in HPI PMFSH - History History Provided By: Patient - Medical History Medical History: Medical History (Last Reviewed 02/04/18 @ 00:54 by Roberto Vanessa MD) Endocarditis Hx of ovarian dysfunction Pacemaker SBE (subacute bacterial endocarditis) Seizure as late effect of cerebrovascular accident (CVA) Stroke - Surgical History Surgical History: Surgical History (Last Reviewed 02/04/18 @ 00:54 by Roberto Vanessa MD) H/O mitral valve replacement with mechanical valve History of carpal tunnel surgery History of tricuspid valve replacement with mechanical valve Hx of appendectomy Hx of section Hx of cholecystectomy Hx of splenectomy - Family History Family History: Family History (Last Updated 02/04/18 @ 00:56 by Roberto Vanessa MD) Mother Heart disease Father Heart disease Other No pertinent family history - Social History I have reviewed the patient's Social History: Yes - Tobacco History Second Hand Smoke Exposure: No Smoking Status: Never smoker Tobacco Type: Cigarettes - Alcohol History How Often Do You Have a Drink Containing Alcohol: Never - Substance Use History Substance History: Active Abuse - Substance Use Type Heroin Status: Active Reason for Use: Feels Good, Get High - Travel History Recent Travel in the [place] Within the Last 8 Weeks: No Recent Travel Out of the Country Within the Last 8 Weeks: No - Immunization History Tetanus Immunization: >5 Years Hx Influenza Vaccine This Season: No Medications and Allergies Active Medications: Active Medications Acetaminophen (Tylenol) 650 mg PO Q4H PRN PRN Reason: Temp > 100.4 Al Hydroxide/Mg Hydroxide (Milk Of Magnesia Liq) 30 ml PO Q12H PRN PRN Reason: Mild Constipation Bisacodyl (Dulcolax Supp) 10 mg RECTAL DAILY PRN PRN Reason: SEVERE CONSITIPATION Vancomycin HCl 1,000 mg/ (Sodium Chloride) 250 mls @ 250 mls/hr IV.SIG FREELANCE PATTERNMAKER [facility] Last Infusion: 02/03/18 21:50 Dose: Infused Sodium Chloride (Ns Inj) 1,000 mls @ 100 mls/hr IV.CONT .Q10H [facility] Last Admin: 02/03/18 20:51 Dose: 100 mls/hr Vancomycin HCl 900 mg/ Sodium (Chloride) 250 mls @ 250 mls/hr IV.SIG Q12H HENRI Lactulose (Lactulose Liq) 30 ml PO DAILY PRN PRN Reason: SEVERE CONSITIPATION Miscellaneous Information ([facility] Ordered Lab Info) 0 each OTHER ONCE ONE Stop: 02/05/18 07:46 Ondansetron HCl (Zofran Inj) 4 mg IV.PUSH Q6H PRN PRN Reason: NAUSEA OR VOMITING Pharmacy Profile Note (Vancomycin Consult Pharmacy) 1 each OTHER UNSCH PRN PRN Reason: Pharmacy to dose Sennosides (Senokot) 17.2 mg PO Q12H PRN PRN Reason: Moderate Constipation Sodium Chloride (Ns Flush) 2 ml IV.FLUSH BID [facility] Last Admin: 02/03/18 20:58 Dose: Not Given Sodium Chloride (Ns Flush) 2 ml IV.FLUSH PRN PRN PRN Reason: FLUSH AFTER USING IV ACCESS Allergies Allergy/AdvReac Type Severity Reaction Status Date / Time codeine Allergy Severe HIVES/VOMIT Verified 02/03/18 15:40 ING Fish Containing Products Allergy Severe THROAT Verified 02/03/18 15:40 SWOLLEN/HIVES gabapentin Allergy Severe Hives Verified 02/03/18 15:40 morphine Allergy Severe Hives Verified 02/03/18 15:40 naproxen Allergy Severe Hives Verified 02/03/18 15:40 piperacillin Allergy Severe Hives Verified 02/03/18 15:40 tazobactam Allergy Severe Hives Verified 02/03/18 15:40 adhesive tape Allergy Rash, Verified 02/03/18 15:40 Localized shellfish derived Allergy Difficulty Verified 02/03/18 15:40 Breathing Home Medications Medication Instructions Recorded Confirmed Type aspirin 81 mg PO DAILY 09/14/17 02/03/18 History ferrous sulfate 15 mg PO BID 09/14/17 02/03/18 History fluoxetine 20 mg PO DAILY 09/14/17 02/03/18 History lorazepam 1 mg PO BID 09/14/17 02/03/18 History pantoprazole [Protonix] 40 mg PO DAILY 09/14/17 02/03/18 History topiramate [Topamax] 50 mg PO BID 09/14/17 02/03/18 History warfarin [Coumadin] 5 mg PO DAILY 09/14/17 02/03/18 History levetiracetam [Keppra] 1 tab PO BID 01/11/18 02/03/18 History Exam Vital signs: Vital Signs 02/03/18 15:37 02/03/18 16:35 02/03/18 20:16 Temperature 99.3 F 98.9 F Pulse Rate 82 71 92 H Respiratory Rate 20 21 Blood Pressure 118/61 110/65 Pulse Oximetry 98 99 99 02/03/18 22:15 02/04/18 00:00 Temperature 98.5 F 98.1 F Pulse Rate 65 69 Respiratory Rate 17 18 Blood Pressure 116/59 L 105/67 Pulse Oximetry 100 96 Intake & Output 02/03/18 02/03/18 02/04/18 06:59 18:59 06:59 Intake Total 250 / 250 Balance 250 / 250 Weight 63.503 kg Intake: IV 250 / 250 Vancomycin Inj 1,000 MG In NS 250 / 250 Inj 250 ML @ 250 mls/hr IV.SIG FREELANCE PATTERNMA[employer] [facility] Rx#:[id number] Narrative: GENERAL: Patient sitting up in bed. Appears comfortable. Alert and oriented x3. SKIN: Warm and dry. HEAD: Atraumatic. Normocephalic. EYES: Pupils equal and round. No scleral icterus. No injection or drainage. ENT: No nasal bleeding or discharge. Mucous membranes pink and moist. NECK: Trachea midline. No JVD. CARDIOVASCULAR: Regular rate and rhythm. RESPIRATORY: No accessory muscle use. Clear to auscultation. Breath sounds equal bilaterally. GASTROINTESTINAL: Abdomen soft, non-tender, nondistended. Hepatic and splenic margins not palpable. MUSCULOSKELETAL: Extremities without clubbing, cyanosis, or edema. No obvious deformities. NEUROLOGICAL: Awake and alert. No obvious cranial nerve deficits. Motor grossly within normal limits. Five out of 5 muscle strength in the arms and legs. Normal speech. PSYCHIATRIC: Appropriate mood and affect; insight and judgment normal. Results - Labs CBC & Chem 7: 02/03/18 19:15 02/03/18 19:15 Labs: Short CBC 02/03/18 Range/Units 19:15 WBC 7.9 (4.0-11.0) th/mm3 Hgb 10.6 L (11.6-15.3) gm/dL Hct 31.0 L (35.0-46.0) % Plt Count 359 (150-450) th/mm3 BMP 02/03/18 19:15 Sodium 138 Potassium 3.7 Chloride 105 Carbon Dioxide 25.2 BUN 10 Creatinine 0.74 Calcium 8.8 Cardiac Enzymes 02/03/18 Range/Units 19:15 Total Creatine Kinase 44 (26-192) U/L Troponin I Less than 0.02 L (0.02-0.05) ng/mL Liver Function 02/03/18 Range/Units 19:15 Total Bilirubin 0.8 (0.2-1.0) mg/dL AST 21 (15-37) U/L ALT 19 (10-53) U/L Alkaline Phosphatase 156 H (45-117) U/L Albumin 3.7 (3.4-5.0) g/dL Urine 02/03/18 Range/Units 17:02 Urine Color Yellow (Yellw/Straw) Urine Clarity Slight H (Clear) Urine pH 6.0 (5.0-8.5) Ur Specific [place] 1.005 (1.002-1.035) Urine Protein Negative (Neg-Trace) mg/dL Urine Glucose (UA) Negative (Negative) mg/dL - Imaging Impressions Chest X-Ray 02/03/18 16:50 CONCLUSION: Stable appearance with no evidence of pneumonia. Caprini VTE Risk Assessment Caprini VTE Risk Assessment: No/Low Risk (score <= 1) Caprini Risk Assessment Model: Point Value = 1 Point Value = 2 Point Value = 3 Point Value = 5 Age 41-60 Minor surgery BMI > 25 kg/m2 Swollen legs Varicose veins or History of unexplained or recurrent spontaneous Oral contraceptives or hormone replacement Sepsis (< 1 month) Serious lung disease, including pneumonia (< 1 month) Abnormal pulmonary function Acute myocardial infarction Congestive heart failure (< 1 month) History of inflammatory bowel disease Medical patient at bed rest Age 61-74 Arthroscopic surgery Major open surgery (> 45 min) Laparoscopic surgery (> 45 min) Malignancy Confined to bed (> 72 hours) Immobilizing plaster cast Central venous access Age >= 75 History of VTE Family history of VTE Factor V Leiden Prothrombin [id number] Lupus anticoagulant Anticardiolipin antibodies Elevated serum homocysteine Heparin-induced thrombocytopenia Other congenital or acquired thrombophilia Stroke (< 1 month) Elective arthroplasty Hip, pelvis, or leg fracture Acute spinal cord injury (< 1 month) Prophylaxis Regimen: Total Risk Factor Score Risk Level Prophylaxis Regimen 0-1 Low Early ambulation 2 Moderate Order ONE of the following: *Sequential Compression Device (SCD) *Heparin 5000 units SQ BID 3-4 Higher Order ONE of the following medications: *Heparin 5000 units SQ TID *Enoxaparin/Lovenox 40 mg SQ daily (WT < 150 kg, CrCl > 30 mL/min) *Enoxaparin/Lovenox 30 mg SQ daily (WT < 150 kg, CrCl > 10-29 mL/min) *Enoxaparin/Lovenox 30 mg SQ BID (WT < 150 kg, CrCl > 30 mL/min) AND/OR *Sequential Compression Device (SCD) 5 or more Highest Order ONE of the following medications: *Heparin 5000 units SQ TID (Preferred with Epidurals) *Enoxaparin/Lovenox 40 mg SQ daily (WT < 150 kg, CrCl > 30 mL/min) *Enoxaparin/Lovenox 30 mg SQ daily (WT < 150 kg, CrCl > 10-29 mL/min) *Enoxaparin/Lovenox 30 mg SQ BID (WT < 150 kg, CrCl > 30 mL/min) AND *Sequential Compression Device (SCD) Assessment and Plan - Plan //Gram-positive bacteremia Awaiting final culture results. Repeat cultures are pending. Possibly secondary to endocarditis. Will order echocardiogram. Consult infectious disease and start on IV antibiotics. //Vague right sided abdominal pain. Absent with distraction. Continue to monitor. //Vague left-sided posterior chest pain. Could be pulmonary embolism. Have ordered d-dimer. Discussed Condition With: patient, nurse, ED physician H&P: Quality - VTE Deep Vein Thrombosis/Pulmonary Embolism Present on Admission: No
[2018-02-04 02:06] LABS: Baso # (Auto) 0.1 th/mm3 (0.0-0.2); Baso % (Auto) 1.1 % (0.0-2.0); Eos # (Auto) 0.5 th/mm3 (0.0-0.4); Eos % (Auto) 6.7 % (0.0-4.0); Hematocrit 29.3 % (35.0-46.0); Lymph % (Auto) 54.1 % (9.0-44.0); Mean Corpuscular HGB Conc 34.1 % (32.0-36.0); Mean Corpuscular Hemoglobin 29.4 pg (27.0-34.0); Mean Corpuscular Volume 86.2 fL (80.0-100.0); Mean Platelet Volume 7.8 fL (7.0-11.0); Mono # (Auto) 0.7 th/mm3 (0.0-0.9); Mono % (Auto) 10.2 % (0.0-8.0); Neut % (Auto) 27.9 % (16.0-70.0); Platelet Count 320 th/mm3 (150-450); Red Blood Count 3.39 mil/mm3 (4.00-5.30); Red Cell Distribution Width 14.8 % (11.6-17.2); White Blood Count 7.3 th/mm3 (4.0-11.0)
[2018-02-04 02:38] LABS: Alanine Aminotransferase 17 U/L (10-53); Albumin 3.2 g/dL (3.4-5.0); Alkaline Phosphatase 147 U/L (45-117); Anion Gap 5 meq/L (5-15); Aspartate Aminotransferase 20 U/L (15-37); Blood Urea Nitrogen 11 mg/dL (7-18); Chloride 109 meq/L (98-107); Glomerular Filtration Rate Greater Than 89 mL/min (>89); Glucose,Random 92 mg/dL (74-106); Potassium 3.7 meq/L (3.5-5.1); Sodium 140 meq/L (136-145); Total Protein 7.2 g/dL (6.4-8.2)
[2018-02-04] MEDS: Vancomycin Inj 900 MG in Sodium Chlor 0.9% Inj 250 ML IV.SIG SCH ×2 (08:16→21:50)
[2018-02-04] MEDS: Sod Chloride 0.9% Inj 1,000 ML IV.CONT SCH ×3 (08:17→18:38)
--- NOTE | 2018-02-04 10:39 | P.PN ---
Subjective Interval history: Follow-up history of endocarditis/ IVDU/atypical chest pain February 04, 2018-patient seen and examined, she still complained of left-sided chest pain. Patient needs using heroine on a day of admission, and states she may have overdosed. Physical Exam Vital signs: Vital Signs 02/03/18 15:37 02/03/18 16:35 02/03/18 20:16 Temperature 99.3 F 98.9 F Pulse Rate 82 71 92 H Respiratory Rate 20 21 Blood Pressure 118/61 110/65 Pulse Oximetry 98 99 99 02/03/18 22:15 02/04/18 00:00 02/04/18 08:00 Temperature 98.5 F 98.1 F 97.5 F L Pulse Rate 65 69 61 Respiratory Rate 17 18 19 Blood Pressure 116/59 L 105/67 104/53 L Pulse Oximetry 100 96 94 L Intake & Output 02/03/18 02/04/18 02/04/18 18:59 06:59 18:59 Intake Total 950 / 950 1250 / 1250 Balance 950 / 950 1250 / 1250 Weight 63.503 kg 63.5 kg Intake: IV 250 / 250 1250 / 1250 NS Inj 1,000 ML @ 100 mls/hr IV 1000 / 1000 .CONT .Q10H [facility] Rx#:[id number] Vancomycin Inj 900 MG In NS Inj 250 / 250 250 / 250 250 ML @ 250 mls/hr IV.SIG Q12H [facility] Rx#:[id number] Oral 700 / 700 Other: # Voids 1 Narrative: GENERAL: NAD SKIN: Warm and dry. HEAD: Atraumatic. Normocephalic. EYES: Pupils equal and round. No scleral icterus. No injection or drainage. ENT: No nasal bleeding or discharge. Mucous membranes pink and moist. NECK: Trachea midline. No JVD. CARDIOVASCULAR: Regular rate and rhythm. RESPIRATORY: No accessory muscle use. Clear to auscultation. Breath sounds equal bilaterally. GASTROINTESTINAL: Abdomen soft, non-tender, nondistended. Hepatic and splenic margins not palpable. MUSCULOSKELETAL: Extremities without clubbing, cyanosis, or edema. No obvious deformities. NEUROLOGICAL: Awake and alert. No obvious cranial nerve deficits. Motor grossly within normal limits. Five out of 5 muscle strength in the arms and legs. Normal speech. PSYCHIATRIC: Appropriate mood and affect; insight and judgment normal. Results - Labs CBC & Chem 7: 02/04/18 01:37 02/04/18 01:37 Laboratory Results - last 24 hr 02/03/18 02/03/18 02/03/18 17:02 19:15 19:15 WBC 7.9 RBC 3.61 L Hgb 10.6 L Hct 31.0 L MCV 85.8 MCH 29.3 MCHC 34.1 RDW 14.8 Plt Count 359 MPV 8.0 Neut % (Auto) 39.5 Lymph % (Auto) 46.7 H [place] % (Auto) 7.5 Eos % (Auto) 5.1 H Baso % (Auto) 1.2 Neut # (Auto) 3.1 Lymph # (Auto) 3.7 [place] # (Auto) 0.6 Eos # (Auto) 0.4 Baso # (Auto) 0.1 WBC Differential . Differential Comment Auto diff final D-Dimer Quant (PE/DVT) Sodium 138 Potassium 3.7 Chloride 105 Carbon Dioxide 25.2 Anion Gap 8 BUN 10 Creatinine 0.74 Estimated GFR Greater than 89 Random Glucose 78 Lactic Acid Calcium 8.8 Magnesium 2.0 Total Bilirubin 0.8 AST 21 ALT 19 Alkaline Phosphatase 156 H Total Creatine Kinase 44 Troponin I Less than 0.02 L Total Protein 8.0 Albumin 3.7 Lipase Urine Color Yellow Urine Clarity Slight H Urine pH 6.0 Ur Specific [place] 1.005 Urine Protein Negative Urine Glucose (UA) Negative Urine Ketones Negative Urine Occult Blood Large H Urine Nitrate Negative Urine Bilirubin Negative Urine Urobilinogen Less than 2 Ur Leukocyte Esterase Negative Urine RBC 1 Urine WBC 1 Ur Squamous Epith Cells 51 Urine Bacteria Occasional H Micro UA Comment Culture not ind Ur Microscopic Review Not Reportable Urine Culture Comments Culture not ind 02/03/18 02/03/18 02/04/18 19:15 19:20 01:37 WBC 7.3 RBC 3.39 L Hgb 10.0 L Hct 29.3 L MCV 86.2 MCH 29.4 MCHC 34.1 RDW 14.8 Plt Count 320 MPV 7.8 Neut % (Auto) 27.9 Lymph % (Auto) 54.1 H [place] % (Auto) 10.2 H Eos % (Auto) 6.7 H Baso % (Auto) 1.1 Neut # (Auto) 2.0 Lymph # (Auto) 4.0 [place] # (Auto) 0.7 Eos # (Auto) 0.5 H Baso # (Auto) 0.1 WBC Differential . Differential Comment Auto diff final D-Dimer Quant (PE/DVT) Sodium Potassium Chloride Carbon Dioxide Anion Gap BUN Creatinine Estimated GFR Random Glucose Lactic Acid 0.6 Calcium Magnesium Total Bilirubin AST ALT Alkaline Phosphatase Total Creatine Kinase Troponin I Total Protein Albumin Lipase 72 L Urine Color Urine Clarity Urine pH Ur Specific [place] Urine Protein Urine Glucose (UA) Urine Ketones Urine Occult Blood Urine Nitrate Urine Bilirubin Urine Urobilinogen Ur Leukocyte Esterase Urine RBC Urine WBC Ur Squamous Epith Cells Urine Bacteria Micro UA Comment Ur Microscopic Review Urine Culture Comments 02/04/18 02/04/18 02/04/18 01:37 01:37 06:49 WBC RBC Hgb Hct MCV MCH MCHC RDW Plt Count MPV Neut % (Auto) Lymph % (Auto) [place] % (Auto) Eos % (Auto) Baso % (Auto) Neut # (Auto) Lymph # (Auto) [place] # (Auto) Eos # (Auto) Baso # (Auto) WBC Differential Differential Comment D-Dimer Quant (PE/DVT) 1.17 H Sodium 140 Potassium 3.7 Chloride 109 H Carbon Dioxide 26.0 Anion Gap 5 BUN 11 Creatinine 0.75 Estimated GFR Greater than 89 Random Glucose 92 Lactic Acid Calcium 8.0 L D Magnesium Total Bilirubin 0.7 AST 20 ALT 17 Alkaline Phosphatase 147 H Total Creatine Kinase Troponin I Less than 0.02 L Less than 0.02 L Total Protein 7.2 D Albumin 3.2 L Lipase Urine Color Urine Clarity Urine pH Ur Specific [place] Urine Protein Urine Glucose (UA) Urine Ketones Urine Occult Blood Urine Nitrate Urine Bilirubin Urine Urobilinogen Ur Leukocyte Esterase Urine RBC Urine WBC Ur Squamous Epith Cells Urine Bacteria Micro UA Comment Ur Microscopic Review Urine Culture Comments - Imaging Impressions Chest X-Ray 02/03/18 16:50 CONCLUSION: Stable appearance with no evidence of pneumonia. - Procedures None Assessment and Plan - Plan 27-year-old female with Gram-positive bacteremia Patient with known history of endocarditis and previously treated Currently on IV vancomycin pending culture report 2D echo pending Infectious disease special consultation pending Atypical chest pain Patient admitted of heroin use February 03, 2018 ACS was ruled out with serial cardiac enzyme and EKGs CTA lung angiogram negative for PE Continue to monitor History of hepatitis C, prior history of cirrhosis To monitor IVDU Extensively counseled against Check UDS
[2018-02-04 14:31] LABS: Amphetamine Screen,Urine Neg (Neg); Barbiturate Screen,Urine Neg (Neg); Cannabinoid Screen,Urine Neg (Neg); Cocaine Screen,Urine Neg (Neg)
[2018-02-04 14:35] LABS: Opiate Screen,Urine Neg (Neg)
--- NOTE | 2018-02-04 15:54 | ECG ---
Date Performed: 02/04/2018 Time Performed: 12:29:08 PTAGE: 27 years EKG: ECTOPIC ATRIAL RHYTHM WITH FIRST DEGREE AV BLOCK POSSIBLE RIGHT VENTRICULAR CONDUCTION LEANDRA Y ABNORMAL ECG No significant change from prior electrocardiogram. PREVIOUS TRACING : 02/04/2018 08.00 DOCTOR: Sher Brar Interpretating Date/Time 02/04/2018 15:53:55
--- NOTE | 2018-02-04 15:54 | MB ---
cc: Sunny Rowley MD DATE: 02/04/2018 REQUESTING PHYSICIAN: Dr. Vanessa. REASON: Bacteremia. HISTORY OF PRESENT ILLNESS: This is a 27-year-old white female who has a history of endocarditis and had valve replacements. The patient presented to the emergency department on 02/02/2018. She was noted to have overdosed on IV drugs. The patient states that she relapsed from IV drug use and was using IV heroin. She was found unresponsive in her vehicle and brought to the emergency department. She apparently had CPR performed and Narcan was given. She had reported having fever of 102 degrees and blood cultures were taken because of her history of endocarditis. Her white blood cell count was elevated at 14,000. She was felt to have acute bronchitis and drug overdose and she was discharged from the emergency department. The patient was called back when blood cultures came back showing bacteria. Blood cultures preliminary has gram-positive cocci in both aerobic bottles and anaerobic bottle in one set has an Enterobacter species and the second set is Staph coagulase negative. The patient notes that over the past 5 days, she has had fevers off and on. She denies body aches, sweats, nausea, vomiting. Besides that, she has no other complaints. She is afebrile. Her white count is normal today and it was also normal yesterday. This consultation is requested because of the positive blood cultures. The patient has had previous hospitalizations in April, May, June and July. She was also admitted in August for fever of unknown origin. She was seen by infectious disease at that time. Her last positive blood culture was on 10/28/2017, at which time she had Sayda glabrata. She was given vancomycin for 14 days to complete on 10/30/2017. I cannot tell whether she had been treated for a Sayda glabrata. It appears that she may have signed out against medical advice on 10/30/2017 according to the medical attending discharge summary. PAST MEDICAL HISTORY: 1. Bacterial endocarditis. 2. Pacemaker insertion. 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 4. Cerebrovascular accident. 5. History of mitral valve replacement with mechanical valve. 6. History of tricuspid valve replacement with mechanical valve. 7. History of splenectomy. 8. History of cholecystectomy. 9. History of appendectomy. 10. History of . 11. IV drug use. ALLERGIES: 1. MORPHINE. 2. GABAPENTIN. 3. CODEINE. 4. PIPERACILLIN-TAZOBACTAM. 5. NAPROXEN. 6. ADHESIVE TAPE. 7. SHELLFISH CONTAINING PRODUCTS. MEDICATIONS: 1. Vancomycin. 2. Senokot. 3. Zofran. SOCIAL HISTORY: Denies tobacco. Denies alcohol. Positive IV drug use in the form of heroin. FAMILY HISTORY: Noncontributory. REVIEW OF SYSTEMS: All systems have been reviewed and pertinent features are mentioned in the history of present illness. PHYSICAL EXAMINATION: GENERAL: This is a slender, well-developed female who is in no acute distress. She is awake and alert and oriented. VITAL SIGNS: Temperature 98 degrees, BP 93/51, respirations 19, heart rate 67. HEENT: Head is atraumatic. Extraocular movements grossly intact. Pupils reactive to light. No icterus. Oropharynx: Moist mucosa. No visible lesions. No thrush. NECK: Supple. No adenopathy. LUNGS: Clear breath sounds bilaterally. HEART: Regular S1 and S2. No murmurs audible. ABDOMEN: Bowel sounds present. Soft, no tenderness appreciated. RECTAL: Not performed. EXTREMITIES: No clubbing, cyanosis or edema. No embolic lesions or visible. No splinter hemorrhages. SKIN: No rash. NEUROLOGIC: No gross focal findings. PSYCHIATRIC: The patient is calm and cooperative. LABORATORY DATA: WBC 7.3, platelets 320, 27% neutrophils, 54% lymphocytes, 10%, monocytes, 6% eosinophils. Creatinine 0.75, BUN 11, estimated GFR 89. Liver function test normal. Blood culture from 02/03/2018 has no growth in 1 day. ASSESSMENT: Bacteremia in a patient with prosthetic mitral and tricuspid valve and IV drug user. Blood cultures with apparent mixed bacterial organisms; recent IV drug use. The patient has mixed bacterial organism in the blood cultures, but really no significant symptomatology except for her describing fevers and chills prior to admission. However, she was using IV drugs and it is not clear whether her fever is due to bacterial infection in the bloodstream. Her white count is normal and she has been afebrile since admission. The positive blood cultures are certainly of major concern in this patient who has had valve replacement with mechanical valves in the past and also has had splenectomy. She has poor insight into her issues and states that she relapsed and started using IV drugs again because she states her brother has cirrhosis and that is what drove her to go back to use drugs. She states "my brother is dying". She also has a major issue with noncompliance and leaving the hospital against medical advice. She did have Sayda glabrata in blood cultures on her last hospitalization in October and it appears that she did not receive treatment because she left against medical advice before antibiotics for the yeast organism was started. Fortunately for he, she did not go on to develop profound septicemia from the yeast. However, it is not clear whether there has been damage done to the perivalvular tissue from infection. RECOMMENDATIONS: 1. Continue vancomycin. 2. We will monitor the blood cultures from 02/02/2018 for final identity. If it is a combination of different bacterial organisms, may just be a contamination. 3. Monitor new blood cultures from 02/03/2018. 4. Obtain 2D echocardiogram. 5. Monitor the clinical status including temperature and white blood cell count. The patient has been made aware of the seriousness of her condition and if indeed there is a persistent bacteria in the blood stream, she will need prolonged antibiotic course, particularly with the mechanical heart valve. Thank you for this consultation. I will follow the patient's progress. MD KEON Chauhan/luis alfredo , 03:12 PM , 03:31 PM [place]
--- NOTE | 2018-02-04 21:34 | ECG ---
Date Performed: 02/04/2018 Time Performed: 08:00:23 PTAGE: 27 years EKG: ECTOPIC ATRIAL RHYTHM WITH FIRST DEGREE AV BLOCK INCOMPLETE RIGHT BUNDLE BRANCH BLOCK PROLO NGED QT INTERVAL ABNORMAL ECG PREVIOUS TRACING : 02/03/2018 15.48 Since the previous tracing, no significant change noted DOCTOR: Eric Yen Interpretating Date/Time 02/04/2018 21:34:29
--- NOTE | 2018-02-04 22:51 | ECG ---
Date Performed: 02/03/2018 Time Performed: 15:48:44 PTAGE: 27 years EKG: ECTOPIC ATRIAL RHYTHM WITH FIRST DEGREE AV BLOCK INCOMPLETE RIGHT BUNDLE BRANCH BLOCK ABNOR MAL ECG PREVIOUS TRACING : 02/02/2018 13.54 Since the previous tracing, no significant change noted DOCTOR: Eric Yen Interpretating Date/Time 02/04/2018 22:49:39
[2018-02-05] MEDS: Acetaminophen 325 MG Tablet PO PRN ×2 (04:00→15:05)
[2018-02-05] MEDS: Sod Chloride 0.9% Inj 1,000 ML IV.CONT SCH ×3 (04:02→23:26)
[2018-02-05] MEDS ORDERED: Pharmacy Ordered Lab Info OTHER ONE (07:45)
--- NOTE | 2018-02-05 09:02 | P.PN ---
Subjective Interval history: Follow-up history of endocarditis/ IVDU/atypical chest pain February 04, 2018-patient seen and examined, she still complained of left-sided chest pain. Patient needs using heroine on a day of admission, and states she may have overdosed. February 05, 2018-patient seen and examined, only complains of pelvic pain and reports improvement of chest pain. Physical Exam Vital signs: Vital Signs 02/04/18 12:00 02/04/18 16:00 02/04/18 20:00 Temperature 98.0 F 98.4 F 98.6 F Pulse Rate 67 69 63 Respiratory Rate 19 19 18 Blood Pressure 93/51 L 123/61 136/77 Pulse Oximetry 92 L 98 97 02/05/18 00:00 02/05/18 06:28 Temperature 98.7 F Pulse Rate 66 Respiratory Rate 18 20 Blood Pressure 105/52 L Pulse Oximetry 95 Intake & Output 02/04/18 02/05/18 02/05/18 18:59 06:59 18:59 Intake Total 3450 / 3450 450 / 450 Balance 3450 / 3450 450 / 450 Weight 70.2 kg Intake: IV 2250 / 2250 250 / 250 NS Inj 1,000 ML @ 100 mls/hr IV 2000 / 2000 .CONT .Q10H [facility] Rx#:[id number] Vancomycin Inj 900 MG In NS Inj 250 / 250 250 / 250 250 ML @ 250 mls/hr IV.SIG Q12H [facility] Rx#:[id number] Oral 1200 / 1200 200 / 200 Other: # Voids 3 3 # Bowel Movements 1 Narrative: GENERAL: NAD SKIN: Warm and dry. HEAD: Atraumatic. Normocephalic. EYES: Pupils equal and round. No scleral icterus. No injection or drainage. ENT: No nasal bleeding or discharge. Mucous membranes pink and moist. NECK: Trachea midline. No JVD. CARDIOVASCULAR: Regular rate and rhythm. RESPIRATORY: No accessory muscle use. Clear to auscultation. Breath sounds equal bilaterally. GASTROINTESTINAL: Abdomen soft, non-tender, nondistended. Hepatic and splenic margins not palpable. MUSCULOSKELETAL: Extremities without clubbing, cyanosis, or edema. No obvious deformities. NEUROLOGICAL: Awake and alert. No obvious cranial nerve deficits. Motor grossly within normal limits. Five out of 5 muscle strength in the arms and legs. Normal speech. PSYCHIATRIC: Appropriate mood and affect; insight and judgment normal. Results - Labs CBC & Chem 7: 02/04/18 01:37 02/04/18 01:37 Laboratory Results - last 24 hr 02/04/18 02/04/18 02/05/18 13:55 13:59 07:45 Troponin I Less than 0.02 L Vancomycin Trough 12.3 H Urine Opiates Screen Neg Ur Barbiturates Screen Neg Ur Amphetamines Screen Neg U Benzodiazepines Scrn Pos H Urine Cocaine Screen Neg U Cannabinoids Screen Neg Microbiology 02/03/18 19:20 Blood - Peripheral Aerobic Blood Culture - Preliminary No growth in 1 day 02/03/18 19:20 Blood - Peripheral Anaerobic Blood Culture - Preliminary No growth in 1 day 02/03/18 19:15 Blood - Peripheral Aerobic Blood Culture - Preliminary No growth in 1 day 02/03/18 19:15 Blood - Peripheral Anaerobic Blood Culture - Preliminary No growth in 1 day - Procedures None Assessment and Plan - Plan 27-year-old female with Gram-positive bacteremia Patient with known history of endocarditis and previously treated Currently on IV vancomycin pending culture report 2D echo pending Infectious disease special consulted and appreciate inputs Atypical chest pain-resolved Patient admitted of heroin use February 03, 2018 ACS was ruled out with serial cardiac enzyme and EKGs CTA lung angiogram negative for PE Continue to monitor History of hepatitis C, prior history of cirrhosis Monitor IVDU Extensively counseled against UDS positive for Benzo
[2018-02-05] MEDS: Vancomycin Inj 1,000 MG in Sodium Chlor 0.9% Inj 250 ML IV.SIG SCH (09:24)
[2018-02-05] MEDS: Vancomycin Inj 900 MG in Sodium Chlor 0.9% Inj 250 ML IV.SIG SCH (10:02)
[2018-02-05] MEDS ORDERED: Warfarin Consult Pharmacy OTHER PRN (14:15)
--- NOTE | 2018-02-05 17:19 | ECHRPT ---
Indication: SEPSIS POSS ENDOCARDITIS CONCLUSIONS The left ventricular systolic function is normal with an estimated ejection fraction in the range of 55-60%. Normally functioning mechanical mitral valve prosthesis. Mobile echodensity on the anterior portion, with independent cardiac motion, possible endocarditis ( noted mostly in the parasternal long view). Mild aortic valve regurgitation. The tricuspid mechanical prosthesis is not well visualized, but appears to be working well. BP: / HR: Rhythm: Sinus MEASUREMENTS (Male / Female) Normal Values Technical Quality:Fair 2D ECHO LV Diastolic Diameter PLAX 5.7 cm 4.2 - 5.9 / 3.9 - 5.3 cm LV Systolic Diameter PLAX 4.4 cm IVS Diastolic Thickness 0.8 cm 0.6 - 1.0 / 0.6 - 0.9 cm LVPW Diastolic Thickness 0.8 cm 0.6 - 1.0 / 0.6 - 0.9 cm LV Relative Wall Thickness 0.3 RV Internal Dim ED PLAX 2.9 cm LVOT Diameter 1.8 cm Aortic Root Diameter 2.6 cm M-MODE AV Cusp Separation MM 1.5 cm DOPPLER AV Peak Velocity 157.0 cm/s AV Peak Gradient 9.9 mmHg AI Peak Velocity 122.0 cm/s AI Peak Gradient 6.0 mmHg AI Pressure Half Time 771.0 ms LVOT Peak Velocity 159.0 cm/s LVOT Peak Gradient 10.1 mmHg AV Area Cont Eq pk 2.6 cm MR Peak Velocity 137.0 cm/s MR Peak Gradient 7.5 mmHg Mitral E Point Velocity 185.0 cm/s TR Peak Velocity 155.0 cm/s TR Peak Gradient 9.6 mmHg Right Atrial Pressure 10.0 mmHg Pulmonary Artery Systolic Pressu 19.6 mmHg Right Ventricular Systolic Press 19.6 mmHg PV Peak Velocity 90.3 cm/s PV Peak Gradient 3.3 mmHg FINDINGS LEFT VENTRICLE Normal left ventricular size. Wall thickness is normal. The left ventricular systolic function is normal with an estimated ejection fraction in the range of 55-60%. RIGHT VENTRICLE Normal right ventricular size and systolic function. LEFT ATRIUM Grossly normal size RIGHT ATRIUM Grossly normal ATRIAL SEPTUM Normal atrial septal thickness AORTA The aortic root and proximal ascending aorta are normal in size on limited imaging. MITRAL VALVE Normally functioning mechanical mitral valve prosthesis. Trace mitral valve regurgitation. Mobile echodensity on the anterior portion, with independent cardiac motion, possible endocarditis ( noted mostly in the parasternal long view) AORTIC VALVE The aortic valve is not well visualized. Mild aortic valve regurgitation. Eccentric aortic regurgitation jet directed at the mitral valve. No aortic valve stenosis. TRICUSPID VALVE The tricuspid mechanical prosthesis is not well visualized, but appears to be working well There is trace tricuspid valve regurgitation. PULMONARY VALVE No pulmonary valve regurgitation or stenosis. VESSELS The inferior vena cava is normal in size. PERICARDIUM No pericardial effusion. Alen Tavares DO (Electronically Signed) Final Date:05 February 2018 17:19
[2018-02-05] MEDS: Enoxaparin Inj 80 MG/0.8 ML Syringe SQ SCH (21:11)
[2018-02-05] MEDS: Vancomycin Inj 1,250 MG in Sodium Chlor 0.9% Inj 250 ML IV.SIG SCH (21:13)
[2018-02-05] MEDS: Topiramate 25 MG Tablet PO SCH (21:15)
[2018-02-05] MEDS: levETIRAcetam 500 MG Tablet PO SCH (21:15)
[2018-02-06 05:59] LABS: INR 1.2 Ratio; Prothrombin Time 12.1 sec (9.8-11.6)
[2018-02-06 06:31] LABS: Glomerular Filtration Rate Greater Than 89 mL/min (>89)
[2018-02-06] MEDS: Enoxaparin Inj 80 MG/0.8 ML Syringe SQ SCH ×2 (09:31→21:00)
[2018-02-06] MEDS: Vancomycin Inj 1,000 MG in Sodium Chlor 0.9% Inj 250 ML IV.SIG SCH (09:31)
[2018-02-06] MEDS: FLUoxetine 20 MG Capsule PO SCH (09:32)
[2018-02-06] MEDS: levETIRAcetam 500 MG Tablet PO SCH ×2 (09:33→21:01)
[2018-02-06] MEDS: Topiramate 25 MG Tablet PO SCH ×2 (09:33→21:00)
[2018-02-06] MEDS: Vancomycin Inj 1,250 MG in Sodium Chlor 0.9% Inj 250 ML IV.SIG SCH ×2 (09:34→21:01)
--- NOTE | 2018-02-06 10:10 | P.PN ---
Subjective Interval history: Follow-up history of endocarditis/ IVDU/atypical chest pain February 04, 2018-patient seen and examined, she still complained of left-sided chest pain. Patient needs using heroine on a day of admission, and states she may have overdosed. February 05, 2018-patient seen and examined, only complains of pelvic pain and reports improvement of chest pain. February 06, 2018-patient seen and examined still complains of pelvic pain mostly in the right lower quadrant. Afebrile. Physical Exam Vital signs: Vital Signs 02/05/18 12:00 02/05/18 16:00 02/05/18 20:00 Temperature 98.4 F 98.9 F 98.6 F Pulse Rate 63 61 68 Respiratory Rate 17 18 18 Blood Pressure 123/64 144/67 H 104/64 Pulse Oximetry 99 100 96 02/06/18 00:00 02/06/18 08:00 Temperature 98.5 F 97.9 F Pulse Rate 62 59 L Respiratory Rate 18 16 Blood Pressure 130/58 L 119/56 L Pulse Oximetry 97 97 Intake & Output 02/05/18 02/06/18 02/06/18 18:59 06:59 18:59 Intake Total 1250 / 1250 240 / 240 250 / 250 Balance 1250 / 1250 240 / 240 250 / 250 Weight 71.8 kg Intake: IV 1250 / 1250 250 / 250 NS Inj 1,000 ML @ 100 mls/hr IV 1000 / 1000 .CONT .Q10H [facility] Rx#:[id number] Vancomycin Inj 1,250 MG In NS 250 / 250 250 / 250 Inj 250 ML @ 250 mls/hr IV.SIG Q12H [facility] Rx#:[id number] Oral 240 / 240 Other: # Voids 3 Narrative: GENERAL: NAD SKIN: Warm and dry. HEAD: Atraumatic. Normocephalic. EYES: Pupils equal and round. No scleral icterus. No injection or drainage. ENT: No nasal bleeding or discharge. Mucous membranes pink and moist. NECK: Trachea midline. No JVD. CARDIOVASCULAR: Regular rate and rhythm. RESPIRATORY: No accessory muscle use. Clear to auscultation. Breath sounds equal bilaterally. GASTROINTESTINAL: Abdomen soft, non-tender, nondistended. Hepatic and splenic margins not palpable. MUSCULOSKELETAL: Extremities without clubbing, cyanosis, or edema. No obvious deformities. NEUROLOGICAL: Awake and alert. No obvious cranial nerve deficits. Motor grossly within normal limits. Five out of 5 muscle strength in the arms and legs. Normal speech. PSYCHIATRIC: Appropriate mood and affect; insight and judgment normal. Results - Labs CBC & Chem 7: 02/04/18 01:37 02/06/18 05:28 Laboratory Results - last 24 hr 02/06/18 02/06/18 05:28 05:28 PT 12.1 H INR 1.2 Creatinine 0.72 Estimated GFR Greater than 89 Microbiology 02/03/18 19:20 Blood - Peripheral Aerobic Blood Culture - Preliminary No growth in 2 days 02/03/18 19:20 Blood - Peripheral Anaerobic Blood Culture - Preliminary No growth in 2 days 02/03/18 19:15 Blood - Peripheral Aerobic Blood Culture - Preliminary No growth in 2 days 02/03/18 19:15 Blood - Peripheral Anaerobic Blood Culture - Preliminary No growth in 2 days - Procedures None Assessment and Plan - Plan 27-year-old female with Gram-positive bacteremia Patient with known history of endocarditis and previously treated Currently on IV vancomycin pending culture report 2D echo with no evidence of vegetation Infectious disease special consulted and appreciate inputs Monitor the blood cultures until finalized at 72 hours. If no positive blood culture with a single bacteria is recovered on the blood cultures from February 03 and February 05, hopefully to stop antibiotics and discharge the patient per ID Tricuspid mechanical valve Continue with Coumadin with Lovenox bridge Monitor INR Atypical chest pain-resolved Patient admitted of heroin use February 03, 2018 ACS was ruled out with serial cardiac enzyme and EKGs CTA lung angiogram negative for PE Continue to monitor Pelvic pain Will check pelvic x-ray and treat accordingly History of hepatitis C, prior history of cirrhosis Monitor IVDU Extensively counseled against UDS positive for Benzo
--- NOTE | 2018-02-06 11:02 | XR ---
EXAM DATE: 02/06/2018 10:49 AM EST AGE/SEX: 27 years / Female INDICATIONS: Right side pelvic pain, radiates down right leg, no known injury. CLINICAL DATA: This is the patient's subsequent encounter. Patient reports that signs and symptoms h ave been present for 4 - 6 days and indicates a pain score of 7/10. MEDICAL/SURGICAL HISTORY: Stroke. Cardiovascular disease. Endocarditis. CVA Appendectomy. Cho lecystectomy. Splenectomy. Pacemaker. Open heart surgery x 2 for endocarditis. C section. COMPARISON: [facility] [place], CT ABDOMEN & PELVIS W CONTRAST, 02/02/2018. . FINDINGS: Examination of the pelvis demonstrates no evidence of fracture or dislocation. Bony mineralization i s normal. There is no widening of the sacroiliac joints. The right sacroiliac joint is fused. The le ft is unremarkable. No foreign body is identified. An intrauterine device is present. CONCLUSION: 1. Fusion of the right sacroiliac joint. The left sacroiliac joint is normal. 2. Intrauterine device in place.. Electronically signed by: Allan Knapp MD Board Certified Radiologist 02/06/2018 11:01 AM KEELY Abraham
--- NOTE | 2018-02-06 13:52 | P.PNID ---
Subjective Remarks: She reports having pain in the pelvic area. She notes sweats at night. Denies chills. Denies shortness of breath. Reports that she has less chest pain. No fever. Blood cultures from 02/03 and 02/05 has no growth. Blood culture from 02/02 has coag negative staph, staph epidermidis and Enterobacter. This is a 27-year-old white female who has a history of endocarditis and had valve replacements. The patient presented to the emergency department on 02/02/2018. She was noted to have overdosed on IV drugs. The patient states that she relapsed from IV drug use and was using IV heroin. She was found unresponsive in her vehicle and brought to the emergency department. She apparently had CPR performed and Narcan was given. The patient was called back when blood cultures taken in the ED came back showing bacteria. Her last positive blood culture was on 10/28/2017, at which time she had Sayda glabrata. She was given vancomycin for 14 days to complete on 10/30/2017. I cannot tell whether she had been treated for a Sayda glabrata. It appears that she may have signed out against medical advice on 10/30/2017 according to the medical attending discharge summary. Past Medical History: PAST MEDICAL HISTORY: 1. Bacterial endocarditis. 2. Pacemaker insertion. 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 4. Cerebrovascular accident. 5. History of mitral valve replacement with mechanical valve. 6. History of tricuspid valve replacement with mechanical valve. 7. History of splenectomy. 8. History of cholecystectomy. 9. History of appendectomy. 10. History of . 11. IV drug use. Allergies/Adverse Reactions: Allergies codeine Allergy (Severe, Verified 02/03/18 15:40) HIVES/VOMITING Fish Containing Products Allergy (Severe, Verified 02/03/18 15:40) THROAT SWOLLEN/HIVES gabapentin Allergy (Severe, Verified 02/03/18 15:40) Hives morphine Allergy (Severe, Verified 02/03/18 15:40) Hives naproxen Allergy (Severe, Verified 02/03/18 15:40) Hives piperacillin Allergy (Severe, Verified 02/03/18 15:40) Hives tazobactam Allergy (Severe, Verified 02/03/18 15:40) Hives adhesive tape Allergy (Verified 02/03/18 15:40) Rash, Localized shellfish derived Allergy (Verified 02/03/18 15:40) Difficulty Breathing Objective Vital Signs 02/05/18 16:00 02/05/18 20:00 02/06/18 00:00 Temperature 98.9 F 98.6 F 98.5 F Pulse Rate 61 68 62 Respiratory Rate 18 18 18 Blood Pressure 144/67 H 104/64 130/58 L Pulse Oximetry 100 96 97 02/06/18 08:00 02/06/18 12:00 Temperature 97.9 F 98.0 F Pulse Rate 59 L 56 L Respiratory Rate 16 17 Blood Pressure 119/56 L 88/52 L Pulse Oximetry 97 98 Intake & Output 02/05/18 02/06/18 02/06/18 18:59 06:59 18:59 Intake Total 1250 / 1250 240 / 240 500 / 500 Balance 1250 / 1250 240 / 240 500 / 500 Weight 71.8 kg Intake: IV 1250 / 1250 500 / 500 NS Inj 1,000 ML @ 100 mls/hr IV 1000 / 1000 .CONT .Q10H [facility] Rx#:[id number] Vancomycin Inj 1,250 MG In NS 250 / 250 500 / 500 Inj 250 ML @ 250 mls/hr IV.SIG Q12H [facility] Rx#:[id number] Oral 240 / 240 Other: # Voids 3 02/05/18 17:10 Blood - Peripheral Aerobic Blood Culture - Preliminary No growth in 1 day 02/05/18 17:10 Blood - Peripheral Anaerobic Blood Culture - Preliminary No growth in 1 day 02/05/18 17:05 Blood - Peripheral Aerobic Blood Culture - Preliminary No growth in 1 day 02/05/18 17:05 Blood - Peripheral Anaerobic Blood Culture - Preliminary No growth in 1 day 02/03/18 19:20 Blood - Peripheral Aerobic Blood Culture - Preliminary No growth in 3 days 02/03/18 19:20 Blood - Peripheral Anaerobic Blood Culture - Preliminary No growth in 3 days 02/03/18 19:15 Blood - Peripheral Aerobic Blood Culture - Preliminary No growth in 3 days 02/03/18 19:15 Blood - Peripheral Anaerobic Blood Culture - Preliminary No growth in 3 days Lab - Chemistry Results 02/04/18 02/06/18 13:59 05:28 Creatinine 0.72 Estimated GFR Greater than 89 Troponin I Less than 0.02 L Imaging: ITS Impressions Chest X-Ray 02/03/18 16:50 CONCLUSION: Stable appearance with no evidence of pneumonia. Pelvis X-Ray 02/06/18 00:00 CONCLUSION: 1. Fusion of the right sacroiliac joint. The left sacroiliac joint is normal. 2. Intrauterine device in place.. Physical Exam: PHYSICAL EXAMINATION: GENERAL: This is a slender, well-developed female who is in no acute distress. She is awake and alert and oriented. HEENT: Head is atraumatic. Extraocular movements grossly intact. Pupils reactive to light. No icterus. Oropharynx: Moist mucosa. No visible lesions. No thrush. NECK: Supple. No adenopathy. LUNGS: Clear breath sounds. HEART: Regular S1 and S2. No murmurs audible. ABDOMEN: Bowel sounds present. Soft, no tenderness appreciated. EXTREMITIES: No clubbing, cyanosis or edema. No embolic lesions or visible. No splinter hemorrhages. SKIN: No rash. NEUROLOGIC: No gross focal findings. PSYCHIATRIC: The patient is calm and cooperative. Assessment and Plan - Plan ASSESSMENT: Bacteremia in a patient with prosthetic mitral and tricuspid valve and IV drug user. Blood cultures has mixed bacterial organisms; recent IV drug use. Repeat blood cultures negative. The positive blood culture could be contamination since there is a combination of different bacteria is and repeat blood cultures are negative. 2D echocardiogram does not reveal clear valve lesion. RECOMMENDATIONS: 1. Continue vancomycin. 2. Monitor the blood cultures until finalized at 72 hours. If no positive blood culture with a single bacteria is recovered on the blood cultures from February 03 and February 05, I would be confident stopping antibiotics and discharging the patient. 3. She needs to be cautioned about the continued use of IV drugs which will most certainly lead to recurrent endocarditis. I we will be off this weekend. Other ID doctors covering. Please call if needed.
[2018-02-07] MEDS ORDERED: Pharmacy Ordered Lab Info OTHER ONE ×2 (07:45→19:45)
[2018-02-07 07:50] LABS: INR 1.2 Ratio; Prothrombin Time 12.3 sec (9.8-11.6)
--- NOTE | 2018-02-07 08:14 | P.PNIM ---
Subjective Interval history: Patient seen and examined this morning. Afebrile vital signs stable. Sleeping comfortably when I arrived. Reports having some mild pelvic pain but overall comfortable. Denies any vomiting but does admit to feeling slightly nauseous. Physical Exam Vital signs: Vital Signs 02/06/18 12:00 02/06/18 16:00 02/06/18 20:00 Temperature 98.0 F 98.7 F 98.8 F Pulse Rate 56 L 58 L 61 Respiratory Rate 17 16 20 Blood Pressure 88/52 L 118/65 120/58 L Pulse Oximetry 98 97 96 02/07/18 00:00 Temperature 98.9 F Pulse Rate 58 L Respiratory Rate 18 Blood Pressure 113/52 L Pulse Oximetry 97 Intake & Output 02/06/18 02/07/18 02/07/18 18:59 06:59 18:59 Intake Total 500 / 500 830 / 830 Balance 500 / 500 830 / 830 Weight 72 kg Intake: IV 500 / 500 250 / 250 Vancomycin Inj 1,250 MG In NS 500 / 500 250 / 250 Inj 250 ML @ 250 mls/hr IV.SIG Q12H [facility] Rx#:[id number] Oral 580 / 580 Other: # Voids 3 Narrative: GENERAL: NAD SKIN: Warm and dry. HEAD: Atraumatic. Normocephalic. EYES: Pupils equal and round. No scleral icterus. No injection or drainage. ENT: No nasal bleeding or discharge. Mucous membranes pink and moist. NECK: Trachea midline. No JVD. CARDIOVASCULAR: Regular rate and rhythm. RESPIRATORY: No accessory muscle use. Clear to auscultation. Breath sounds equal bilaterally. GASTROINTESTINAL: Abdomen soft, non-tender, nondistended. Hepatic and splenic margins not palpable. MUSCULOSKELETAL: Extremities without clubbing, cyanosis, or edema. No obvious deformities. NEUROLOGICAL: Awake and alert. No obvious cranial nerve deficits. Motor grossly within normal limits. Five out of 5 muscle strength in the arms and legs. Normal speech. PSYCHIATRIC: Appropriate mood and affect; insight and judgment normal. Results - Labs CBC & Chem 7: 02/04/18 01:37 02/06/18 05:28 Laboratory Results - last 24 hr 02/07/18 06:40 PT 12.3 H INR 1.2 Microbiology 02/05/18 17:10 Blood - Peripheral Aerobic Blood Culture - Preliminary No growth in 1 day 02/05/18 17:10 Blood - Peripheral Anaerobic Blood Culture - Preliminary No growth in 1 day 02/05/18 17:05 Blood - Peripheral Aerobic Blood Culture - Preliminary No growth in 1 day 02/05/18 17:05 Blood - Peripheral Anaerobic Blood Culture - Preliminary No growth in 1 day 02/03/18 19:20 Blood - Peripheral Aerobic Blood Culture - Preliminary No growth in 3 days 02/03/18 19:20 Blood - Peripheral Anaerobic Blood Culture - Preliminary No growth in 3 days 02/03/18 19:15 Blood - Peripheral Aerobic Blood Culture - Preliminary No growth in 3 days 02/03/18 19:15 Blood - Peripheral Anaerobic Blood Culture - Preliminary No growth in 3 days - Imaging Impressions Pelvis X-Ray 02/06/18 00:00 CONCLUSION: 1. Fusion of the right sacroiliac joint. The left sacroiliac joint is normal. 2. Intrauterine device in place.. - Procedures None Assessment and Plan - Assessment (1) Bacteremia Code(s): R78.81 - Bacteremia Status: Acute (2) IVDU (intravenous drug user) Code(s): F19.90 - Other psychoactive substance use, unspecified, uncomplicated Status: Chronic - Plan 27-year-old female with Gram-positive bacteremia Patient with known history of endocarditis and previously treated Currently on IV vancomycin pending culture report 2D echo with no evidence of vegetation Currently no growth to date Infectious disease special consulted and appreciate inputs Monitor the blood cultures until finalized at 72 hours. If no positive blood culture with a single bacteria is recovered on the blood cultures from February 03 and February 05, hopefully to stop antibiotics and discharge the patient per ID Tricuspid mechanical valve Continue with Coumadin with Lovenox bridge Monitor INR Atypical chest pain-resolved Patient admitted of heroin use February 03, 2018 ACS was ruled out with serial cardiac enzyme and EKGs CTA lung angiogram negative for PE Continue to monitor Pelvic pain Will check pelvic x-ray and treat accordingly History of hepatitis C, prior history of cirrhosis Monitor IVDU Extensively counseled against UDS positive for Benzo Code Status: Full code Discharge Planning: Awaiting blood culture results to determine discharge status
[2018-02-07] MEDS: FLUoxetine 20 MG Capsule PO SCH (08:43)
[2018-02-07] MEDS: Topiramate 25 MG Tablet PO SCH ×2 (08:43→21:03)
[2018-02-07] MEDS: levETIRAcetam 500 MG Tablet PO SCH ×2 (08:43→21:03)
[2018-02-07] MEDS: Enoxaparin Inj 80 MG/0.8 ML Syringe SQ SCH ×2 (08:44→21:00)
[2018-02-07] MEDS: Acetaminophen 325 MG Tablet PO PRN (08:53)
[2018-02-07] MEDS: Vancomycin Inj 1,250 MG in Sodium Chlor 0.9% Inj 250 ML IV.SIG SCH ×2 (09:25→21:04)
[2018-02-08] MEDS ORDERED: Pharmacy Ordered Lab Info OTHER ONE ×2 (07:45→19:45)
[2018-02-08] MEDS: Enoxaparin Inj 80 MG/0.8 ML Syringe SQ SCH ×2 (08:19→21:46)
[2018-02-08] MEDS: Topiramate 25 MG Tablet PO SCH ×2 (08:19→21:46)
[2018-02-08] MEDS: levETIRAcetam 500 MG Tablet PO SCH ×2 (08:19→21:46)
[2018-02-08] MEDS: FLUoxetine 20 MG Capsule PO SCH (08:19)
[2018-02-08] MEDS: Vancomycin Inj 1,250 MG in Sodium Chlor 0.9% Inj 250 ML IV.SIG SCH ×2 (09:19→21:47)
[2018-02-08] MEDS: LORazepam 1 MG Tablet PO SCH ×2 (09:25→21:45)
[2018-02-08 09:42] LABS: INR 1.3 Ratio; Prothrombin Time 13.5 sec (9.8-11.6)
[2018-02-08 09:56] LABS: Vancomycin,Random 15.5 Comment
--- NOTE | 2018-02-08 16:10 | P.PNIM ---
Subjective Interval history: Patient has been open about her addiction. She openly admits that she relapsed with heroin, used it twice and overdosed on her second use resulting in this hospitalization. She denies any current fevers. 2D echocardiogram was done but no TAO. Her chief complaint today is that she is not receiving her Ativan home dose, trazodone for sleep, pain medication for her chronic abdominal and chest pain. Physical Exam Vital signs: Last Vital Signs Temp 97 F L 02/08/18 12:00 Pulse 53 L 02/08/18 12:00 Resp 16 02/08/18 12:00 BP 87/47 L 02/08/18 12:00 Pulse Ox 100 02/08/18 12:00 Intake & Output 02/06/18 02/07/18 02/08/18 02/09/18 06:59 06:59 06:59 06:59 Intake Total 1490 / 1490 1330 / 1330 500 / 500 250 / 250 Balance 1490 / 1490 1330 / 1330 500 / 500 250 / 250 Weight 71.8 kg 72 kg 68.3 kg Narrative: GENERAL: NAD SKIN: Warm and dry. HEAD: Atraumatic. Normocephalic. EYES: Pupils equal and round. No scleral icterus. No injection or drainage. ENT: No nasal bleeding or discharge. Mucous membranes pink and moist. NECK: Trachea midline. No JVD. CARDIOVASCULAR: Regular rate and rhythm. RESPIRATORY: No accessory muscle use. Clear to auscultation. Breath sounds equal bilaterally. GASTROINTESTINAL: Abdomen soft, non-tender, nondistended. Hepatic and splenic margins not palpable. MUSCULOSKELETAL: Extremities without clubbing, cyanosis, or edema. No obvious deformities. NEUROLOGICAL: Awake and alert. No obvious cranial nerve deficits. Motor grossly within normal limits. Five out of 5 muscle strength in the arms and legs. Normal speech. PSYCHIATRIC: Appropriate mood and affect; insight and judgment normal. Results Labs CBC & Chem 7: 02/04/18 01:37 02/08/18 09:11 Labs: Microbiology 02/05/18 17:10 Blood - Peripheral Aerobic Blood Culture - Preliminary No growth in 3 days 02/05/18 17:10 Blood - Peripheral Anaerobic Blood Culture - Preliminary No growth in 3 days 02/05/18 17:05 Blood - Peripheral Aerobic Blood Culture - Preliminary No growth in 3 days 02/05/18 17:05 Blood - Peripheral Anaerobic Blood Culture - Preliminary No growth in 3 days 02/03/18 19:20 Blood - Peripheral Aerobic Blood Culture - Final No growth in 5 days 02/03/18 19:20 Blood - Peripheral Anaerobic Blood Culture - Final No growth in 5 days 02/03/18 19:15 Blood - Peripheral Aerobic Blood Culture - Final No growth in 5 days 02/03/18 19:15 Blood - Peripheral Anaerobic Blood Culture - Final No growth in 5 days Procedures Procedures: None Assessment and Plan (1) Bacteremia: Code(s): R78.81 - Bacteremia Status: Acute (2) IVDU (intravenous drug user): Code(s): F19.90 - Other psychoactive substance use, unspecified, uncomplicated Status: Chronic Plan Gram-positive bacteremia Patient with known history of endocarditis and previously treated Continue IV vancomycin pending culture report 2D echo with no hard evidence of vegetation If blood cultures from February 03 and are negative pt. may be discharged without antibiotics per ID Appreciate infectious disease consult Tricuspid mechanical valve Continue with Coumadin with Lovenox bridge Monitor INR Atypical chest pain Patient admitted of heroin use February 03, 2018 ACS was ruled out with serial cardiac enzyme and EKGs CTA lung angiogram negative for PE Pelvic pain Patient has chronic pain in her chest, abdomen, pelvis Given Percocet today, we will not send her home on that due to risk of addiction and overdose Generalized anxiety Resume home dose Ativan Insomnia Resume home dose trazodone Hepatitis C Patient is investigating whether she is qualified for [facility] treatment h/o IVDU Patient admits to relapse with 2 doses of heroin, second one an accidental overdose She has insight into her addiction and managed to stay clean for a couple years prior to this setback Discharge planning Blood cultures are negative she may be able to go home without antibiotics in the next 1-2 days Progress Note: Quality VTE Deep Vein Thrombosis/Pulmonary Embolism Present on Admission: No
[2018-02-09] MEDS: traZODone 100 MG Tablet PO PRN (00:20)
[2018-02-09 06:28] LABS: INR 1.6 Ratio; Prothrombin Time 15.9 sec (9.8-11.6)
[2018-02-09] MEDS: Enoxaparin Inj 80 MG/0.8 ML Syringe SQ SCH ×2 (08:51→20:19)
[2018-02-09] MEDS: Topiramate 25 MG Tablet PO SCH ×2 (08:53→20:19)
[2018-02-09] MEDS: FLUoxetine 20 MG Capsule PO SCH (08:53)
[2018-02-09] MEDS: levETIRAcetam 500 MG Tablet PO SCH ×2 (08:54→20:19)
[2018-02-09] MEDS: LORazepam 1 MG Tablet PO SCH ×2 (08:54→20:18)
[2018-02-09] MEDS: Vancomycin Inj 1,250 MG in Sodium Chlor 0.9% Inj 250 ML IV.SIG SCH ×2 (10:02→20:19)
--- NOTE | 2018-02-09 12:44 | P.PNIM ---
Subjective Interval history: 27-year-old female who presented with recurrence of heroin use and overdose. She only used 2 times. We are awaiting blood cultures to grow out prior to clearance for discharge. She denies any fevers overnight, slept better following the addition of her home meds trazodone. Her only complaint is chest pain, this is chronic and present on admissions in the past. Physical Exam Vital signs: Last Vital Signs Temp 97.6 F 02/09/18 04:00 Pulse 61 02/09/18 04:00 Resp 15 02/09/18 04:00 BP 93/44 L 02/09/18 04:00 Pulse Ox 97 02/09/18 04:00 Intake & Output 02/07/18 02/08/18 02/09/18 02/10/18 06:59 06:59 06:59 06:59 Intake Total 1330 / 1330 500 / 500 980 / 980 Balance 1330 / 1330 500 / 500 980 / 980 Weight 72 kg 68.3 kg 67.4 kg Narrative: GENERAL: NAD SKIN: Warm and dry. HEAD: Atraumatic. Normocephalic. EYES: Pupils equal and round. No scleral icterus. No injection or drainage. ENT: No nasal bleeding or discharge. Mucous membranes pink and moist. NECK: Trachea midline. No JVD. CARDIOVASCULAR: Regular rate and rhythm. RESPIRATORY: No accessory muscle use. Clear to auscultation. Breath sounds equal bilaterally. GASTROINTESTINAL: Abdomen soft, non-tender, nondistended. Hepatic and splenic margins not palpable. MUSCULOSKELETAL: Extremities without clubbing, cyanosis, or edema. No obvious deformities. NEUROLOGICAL: Awake and alert. No obvious cranial nerve deficits. Motor grossly within normal limits. Five out of 5 muscle strength in the arms and legs. Normal speech. PSYCHIATRIC: Appropriate mood and affect; insight and judgment normal. Results Labs CBC & Chem 7: 02/04/18 01:37 02/09/18 03:56 Labs: Microbiology 02/05/18 17:10 Blood - Peripheral Aerobic Blood Culture - Preliminary No growth in 4 days 02/05/18 17:10 Blood - Peripheral Anaerobic Blood Culture - Preliminary No growth in 4 days 02/05/18 17:05 Blood - Peripheral Aerobic Blood Culture - Preliminary No growth in 4 days 02/05/18 17:05 Blood - Peripheral Anaerobic Blood Culture - Preliminary No growth in 4 days 02/03/18 19:20 Blood - Peripheral Aerobic Blood Culture - Final No growth in 5 days 02/03/18 19:20 Blood - Peripheral Anaerobic Blood Culture - Final No growth in 5 days 02/03/18 19:15 Blood - Peripheral Aerobic Blood Culture - Final No growth in 5 days 02/03/18 19:15 Blood - Peripheral Anaerobic Blood Culture - Final No growth in 5 days Procedures Procedures: None Assessment and Plan (1) Bacteremia: Code(s): R78.81 - Bacteremia Status: Acute (2) IVDU (intravenous drug user): Code(s): F19.90 - Other psychoactive substance use, unspecified, uncomplicated Status: Chronic Plan Gram-positive bacteremia Patient with known history of endocarditis and previously treated Continue IV vancomycin pending culture report 2D echo with no hard evidence of vegetation If blood cultures from February 03 and are negative pt. may be discharged without antibiotics per ID Appreciate infectious disease consult Tricuspid mechanical valve Continue with Coumadin with Lovenox bridge Monitor INR, still subtherapeutic Atypical chest pain Patient admitted of heroin use February 03, 2018 ACS was ruled out with serial cardiac enzyme and EKGs CTA lung angiogram negative for PE Pelvic pain Patient has chronic pain in her chest, abdomen, pelvis Continue Percocet Generalized anxiety Continue home dose Ativan Insomnia Continue home dose trazodone Hepatitis C Patient is investigating whether she is qualified for [facility] treatment h/o IVDU Patient admits to relapse with 2 doses of heroin, second one an accidental overdose She has insight into her addiction and managed to stay clean for a couple years prior to this setback Discharge planning Blood cultures are negative she may be able to go home without antibiotics in the next 1-2 days Progress Note: Quality VTE Deep Vein Thrombosis/Pulmonary Embolism Present on Admission: No
--- NOTE | 2018-02-09 15:31 | P.PNID ---
Subjective Remarks: Patient notes that she feels okay. Denies shortness of breath. No chest pain No fever. Blood cultures from 02/03 and 02/05 has no growth. Blood culture from 02/02 has coag negative staph, staph epidermidis and Enterobacter. This is a 27-year-old white female who has a history of endocarditis and had valve replacements. The patient presented to the emergency department on 02/02/2018. She was noted to have overdosed on IV drugs. The patient states that she relapsed from IV drug use and was using IV heroin. She was found unresponsive in her vehicle and brought to the emergency department. She apparently had CPR performed and Narcan was given. The patient was called back when blood cultures taken in the ED came back showing bacteria. Her last positive blood culture was on 10/28/2017, at which time she had Sayda glabrata. She was given vancomycin for 14 days to complete on 10/30/2017. I cannot tell whether she had been treated for a Sayda glabrata. It appears that she may have signed out against medical advice on 10/30/2017 according to the medical attending discharge summary. Past Medical History: PAST MEDICAL HISTORY: 1. Bacterial endocarditis. 2. Pacemaker insertion. 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 4. Cerebrovascular accident. 5. History of mitral valve replacement with mechanical valve. 6. History of tricuspid valve replacement with mechanical valve. 7. History of splenectomy. 8. History of cholecystectomy. 9. History of appendectomy. 10. History of . 11. IV drug use. Allergies/Adverse Reactions: Allergies codeine Allergy (Severe, Verified 02/03/18 15:40) HIVES/VOMITING Fish Containing Products Allergy (Severe, Verified 02/03/18 15:40) THROAT SWOLLEN/HIVES gabapentin Allergy (Severe, Verified 02/03/18 15:40) Hives morphine Allergy (Severe, Verified 02/03/18 15:40) Hives naproxen Allergy (Severe, Verified 02/03/18 15:40) Hives piperacillin Allergy (Severe, Verified 02/03/18 15:40) Hives tazobactam Allergy (Severe, Verified 02/03/18 15:40) Hives adhesive tape Allergy (Verified 02/03/18 15:40) Rash, Localized shellfish derived Allergy (Verified 02/03/18 15:40) Difficulty Breathing Objective Vital Signs 02/08/18 16:00 02/08/18 20:00 02/09/18 00:00 Temperature 98.2 F 99 F 98.8 F Pulse Rate 58 L 65 65 Respiratory Rate 17 16 18 Blood Pressure 90/44 L 95/48 L 101/51 L Pulse Oximetry 97 98 98 02/09/18 08:00 02/09/18 12:00 Temperature 97.6 F 97.4 F L Pulse Rate 61 52 L Respiratory Rate 15 14 Blood Pressure 93/44 L 94/50 L Pulse Oximetry 97 97 Intake & Output 02/08/18 02/09/18 02/09/18 18:59 06:59 18:59 Intake Total 250 / 250 730 / 730 250 / 250 Balance 250 / 250 730 / 730 250 / 250 Weight 67.4 kg Intake: IV 250 / 250 250 / 250 250 / 250 Vancomycin Inj 1,250 MG In NS 250 / 250 250 / 250 250 / 250 Inj 250 ML @ 250 mls/hr IV.SIG Q12H [facility] Rx#:[id number] Oral 480 / 480 Other: # Voids 6 2 Date of Last Bowel Movement 02/08/18 02/08/18 # Bowel Movements 1 02/05/18 17:10 Blood - Peripheral Aerobic Blood Culture - Preliminary No growth in 4 days 02/05/18 17:10 Blood - Peripheral Anaerobic Blood Culture - Preliminary No growth in 4 days 02/05/18 17:05 Blood - Peripheral Aerobic Blood Culture - Preliminary No growth in 4 days 02/05/18 17:05 Blood - Peripheral Anaerobic Blood Culture - Preliminary No growth in 4 days 02/03/18 19:20 Blood - Peripheral Aerobic Blood Culture - Final No growth in 5 days 02/03/18 19:20 Blood - Peripheral Anaerobic Blood Culture - Final No growth in 5 days 02/03/18 19:15 Blood - Peripheral Aerobic Blood Culture - Final No growth in 5 days 02/03/18 19:15 Blood - Peripheral Anaerobic Blood Culture - Final No growth in 5 days Lab - Chemistry Results 02/08/18 02/09/18 09:11 03:56 Creatinine 0.95 1.01 H Estimated GFR 70 L 65 L Imaging: ITS Impressions Chest X-Ray 02/03/18 16:50 CONCLUSION: Stable appearance with no evidence of pneumonia. Pelvis X-Ray 02/06/18 00:00 CONCLUSION: 1. Fusion of the right sacroiliac joint. The left sacroiliac joint is normal. 2. Intrauterine device in place.. Physical Exam: PHYSICAL EXAMINATION: GENERAL: This is a slender, well-developed female who is in no acute distress. She is awake and alert and oriented. HEENT: Head is atraumatic. Extraocular movements grossly intact. Pupils reactive to light. No icterus. Oropharynx: Moist mucosa. No visible lesions. No thrush. NECK: Supple. No adenopathy. LUNGS: Clear breath sounds. HEART: Regular S1 and S2. Systolic ejection murmur /valve click sounds at the left sternal border. ABDOMEN: Bowel sounds present. Soft, no tenderness appreciated. EXTREMITIES: No clubbing, cyanosis or edema. No embolic lesions or visible. No splinter hemorrhages. SKIN: No rash. NEUROLOGIC: No gross focal findings. PSYCHIATRIC: Calm and cooperative. Assessment and Plan - Plan ASSESSMENT: Bacteremia in a patient with prosthetic mitral and tricuspid valve and IV drug user. Blood cultures has mixed bacterial organisms; recent IV drug use. Repeat blood cultures negative. Cultures drawn on the day following the positive blood cultures. The positive blood culture could be contamination since there is a combination of different bacteria is and repeat blood cultures are negative. 2D echocardiogram does not reveal clear valve lesion. RECOMMENDATIONS: 1. Continue vancomycin. 2. If the blood culture remains negative at day 5 tomorrow, antibiotics can be stopped and patient can be discharged. 3. Patient has been cautioned about use of IV drugs which will most certainly lead to recurrent endocarditis. She has been told about the serious complications that can occur if the heart valves become infected again.
[2018-02-10] MEDS: traZODone 100 MG Tablet PO PRN (00:31)
[2018-02-10 07:09] LABS: INR 2.2 Ratio; Prothrombin Time 22.3 sec (9.8-11.6)
[2018-02-10] MEDS ORDERED: Pharmacy Ordered Lab Info OTHER ONE (07:45)
[2018-02-10] MEDS: levETIRAcetam 500 MG Tablet PO SCH (10:16)
[2018-02-10] MEDS: Vancomycin Inj 1,250 MG in Sodium Chlor 0.9% Inj 250 ML IV.SIG SCH (10:16)
[2018-02-10] MEDS: LORazepam 1 MG Tablet PO SCH (10:16)
[2018-02-10] MEDS: FLUoxetine 20 MG Capsule PO SCH (10:17)
[2018-02-10] MEDS: Topiramate 25 MG Tablet PO SCH (10:17)
[2018-02-10] MEDS: Enoxaparin Inj 80 MG/0.8 ML Syringe SQ SCH (10:20)
[2018-02-10 12:22] VITALS: TEMP 98.1
--- NOTE | 2018-02-10 15:45 | P.DS ---
DS: Providers Date of admission: 02/03/18 20:32 Primary care physician: Shital Lea Consults: 02/03/18 20:39 Consult to Infectious Diseases Routine Consulting Provider: Sunny Rowley Reason for Consultation: bacteremia Notified:: Service Spoke with:: AYAN Date Notified:: 02/03/18 Time Notified:: 21:05 Ordering Provider: [place] Brief History from admission: 27-year-old female with a history of IV drug abuse, endocarditis, status post mitral and tricuspid valve replacement twice, CVA x2 who presents due to recent abnormal blood cultures. Patient reports a one-week history of productive cough, fevers over the past 4 days around 101 Fahrenheit. Patient does report shortness of breath with exertion as well as left posterior chest pain, mild right-sided abdominal pain times 1 day. She reports last using heroin yesterday DS: Diagnosis Discharge Diagnosis (1) Bacteremia: Status: Acute (2) IVDU (intravenous drug user): Status: Chronic DS: Summary 27-year-old female admitted for complications of IV drug use. She apparently relapsed due to some family stress related to her brother's illness. She used heroin twice and on the second use had an overdose resulting in hospitalization. 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 Workup during this hospitalization was guided by cardiology and did show anything on 2D echo that was suspicious for endocarditis. Infectious disease recommended empiric treatment anyway until her blood cultures returned negative times 4-5 days. Her cultures from 2017 are negative times 5 days. It was indicated that if her cultures are negative she will not have to go home on antibiotics. Her INR is therapeutic. She has been cleared by cardiology and infectious disease and is appropriate for discharge. Time Spent with Patient Total time spent providing and/or coordinating discharge services: Less than 30 minutes Quality: VTE Deep Vein Thrombosis/Pulmonary Embolism Present on Admission: No Results Procedures completed during hospitalization: None Labs on day of discharge: Labs from last 24 hours 02/10/18 02/10/18 02/10/18 09:12 04:19 04:19 PT 22.3 H INR 2.2 Creatinine 0.95 Estimated GFR 70 L Vancomycin Trough 22.1 H Impressions ITS Impressions Chest X-Ray 02/03/18 16:50 CONCLUSION: Stable appearance with no evidence of pneumonia. Pelvis X-Ray 02/06/18 00:00 CONCLUSION: 1. Fusion of the right sacroiliac joint. The left sacroiliac joint is normal. 2. Intrauterine device in place.. Discharge Plan Discharge Disposition Patient Disposition: 01 Discharge Home Discharge Condition Condition: Good Discharge Order Discharge Orders: Discharge Order (Routine); Ordered 02/10/18 Ordered By: Obinna Gaona Discharge Details Anticipated Discharge Date: 02/10/18 Physicians Team Primary Care Provider: Shital Lea, Attending Provider: Obinna Gaona Other Providers: Sunny Rowley Rxs /Orders / Referrals /Forms Prescriptions: New warfarin [Coumadin] 5 mg Tablet 5 mg PO DAILY@1600 Qty: 30 RF: 0 Continue warfarin [Coumadin] 5 mg Tablet 5 mg PO DAILY RF: 0 topiramate [Topamax] 50 mg Tablet 50 mg PO BID RF: 0 pantoprazole [Protonix] 40 mg Tablet,Delayed Release (Dr/Ec) 40 mg PO DAILY RF: 0 fluoxetine 20 mg Tablet 20 mg PO DAILY RF: 0 lorazepam 1 mg Tablet 1 mg PO BID RF: 0 trazodone 100 mg Tablet 100 mg PO HS PRN (Reason: Insomnia) Qty: 30 RF: 0 levetiracetam [Keppra] 500 mg Tablet 1 tab PO BID RF: 0 Discontinued aspirin 81 mg Tablet,Chewable 81 mg PO DAILY RF: 0 ferrous sulfate 15 mg iron (75 mg)/mL Syringe 15 mg PO BID RF: 0 azithromycin 250 mg tablet See Label Instructions .ROUTE .COMPLEX Qty: 6 RF: 0 benzonatate [Tessalon Perles] 100 mg capsule 100 mg PO TID PRN (Reason: cough) Qty: 10 RF: 0 Referrals: [Primary Care Provider] - See Instructions Discharge Instructions Patient Printed Instructions: Chest Pain (ED) Discharge Interventions Interventions: Discharge Planning - Case Management Last Done: 02/09/18 16:02 Status ED Status: Left Department
[2018-02-10 17:12] VITALS: BP 89/44; PULSE 72; RESP 16; O2SAT 95
[2018-02-11] MEDS ORDERED: Vancomycin Inj 1,250 MG in Sodium Chlor 0.9% Inj 250 ML IV.SIG SCH (04:00)
[2018-02-12] MEDS ORDERED: Pharmacy Ordered Lab Info OTHER ONE (15:45)
== END 2018-02-10 18:42 | disposition home or self-care (01) ==
LOC: NEPC 15:14 → NEDA 20:32 → N07 22:04
PROVIDERS: ADMIT Family Medicine; ATTEND Family Medicine
DX: R05 Cough; R78.81 Bacteremia; Z95.0 Presence of cardiac pacemaker; G47.00 Insomnia, unspecified; J20.9 Acute bronchitis, unspecified; Z95.2 Presence of prosthetic heart valve; E28.9 Ovarian dysfunction, unspecified; Z79.82 Long term (current) use of aspirin; B95.7 Other staphylococcus as the cause of diseases classified elsewhere; F11.10 Opioid abuse, uncomplicated; I25.10 Atherosclerotic heart disease of native coronary artery without angina pectoris; G89.29 Other chronic pain; D64.9 Anemia, unspecified; B96.89 Other specified bacterial agents as the cause of diseases classified elsewhere; Z91.19 Patient's noncompliance with other medical treatment and regimen; Z88.5 Allergy status to narcotic agent; F41.1 Generalized anxiety disorder; B19.20 Unspecified viral hepatitis C without hepatic coma; R10.31 Right lower quadrant pain; R06.02 Shortness of breath; Z79.899 Other long term (current) drug therapy; Z86.73 Personal history of transient ischemic attack (TIA), and cerebral infarction without residual deficits; I45.10 Unspecified right bundle-branch block; T40.1X1A Poisoning by heroin, accidental (unintentional), initial encounter; J90 Pleural effusion, not elsewhere classified; I51.7 Cardiomegaly; Z90.81 Acquired absence of spleen; Z90.49 Acquired absence of other specified parts of digestive tract; Z79.01 Long term (current) use of anticoagulants; I67.9 Cerebrovascular disease, unspecified; Z88.6 Allergy status to analgesic agent; R94.31 Abnormal electrocardiogram [ECG] [EKG]; R50.9 Fever, unspecified; R07.89 Other chest pain